=== PATIENT | male | born 1960 | race Caucasian/White ===

== ENCOUNTER 2016-04-28 12:03 | Emergency (ER) | payer BC, OTHER ==
[~2016-04-28] VITALS: Ht 170.2 cm; Wt 111.1 kg
[~2016-04-28 12:03] MED LIST: ALBUAER2 INH; AMT24 PO; INSUINJ14 SQ; INSUINJ4 SQ; MORP15TA PO; NTRGSL/4 PO; OXGN; PANT40TA PO; TEST5GEL TOP; VGRUNK PO; [UNRECOGNIZED DRUG - CODE] PO
[2016-04-28 12:07] VITALS: TEMP 36.9; Ht 170.2 cm; Wt 111.1 kg
[2016-04-28 12:30] VITALS: O2SAT 96
[2016-04-28 12:54] LABS: HEMATOCRIT 45.3 % (42-52); MEAN CORPUSCULAR HEMOGLOBIN 24.3 pg (25-34); MEAN PLATELET VOLUME 9.4 fL (7.4-10.4); PLATELET COUNT 262 K/uL (130-400); RED BLOOD COUNT 5.96 M/uL (4.7-6.1); WHITE BLOOD COUNT 11.22 K/uL (4.8-10.8)
--- NOTE | 2016-04-28 12:59 | DIAGNOSTIC IMAGING REPORT ---
CHEST ONE VIEW PORTABLE CLINICAL HISTORY: Chest pain. COMPARISON STUDY: Chest radiograph December 08, 2015 per FINDINGS: Lung volumes are at the lower limits of normal. There is no consolidation. There is no evidence of pulmonary edema. Cardiomediastinal silhouette is stable. The appearance of the chest is unchanged. There is evidence for distal left clavicular resection. IMPRESSION: No acute cardiopulmonary findings. Electronically signed by: Corbin Iyer M.D. 04/28/2016 12:57 PM Dictated Date/Time: 04/28/2016 12:55 PM
[2016-04-28 13:01] LABS: BUN/CREATININE RATIO 10.9 (10-20); CREATININE 1.3 mg/dl (0.60-1.40); POTASSIUM 4.4 mmol/L (3.5-5.1)
[2016-04-28 13:04] LABS: INR 0.9 (0.9-1.1); PROTHROMBIN TIME (PATIENT) 9.9 SECONDS (9.0-12.0)
[2016-04-28 13:07] LABS: ALB/GLOB RATIO 1.1 (0.9-2); CKMB/CK RATIO 2.5 (0-3.0)
[2016-04-28 13:14] LABS: BETA-HYDROXYBUTYRATE 0.93 mg/dL (0.2-2.81)
--- NOTE | 2016-04-28 13:36 | EMERGENCY ROOM VISIT NOTE ---
History Report prepared by Slim: Kurt Melvin Under the Supervision of: Dr. Mynor Lowry M.D. First contact with patient: 13:04 Chief Complaint: CHEST PAIN Stated Complaint: CHEST PAIN Nursing Triage Summary: pain started 2-3 days ago, pt. had gone to the doctors for congestion, chest pain comes and goes usually with exerction, pain is located mid sternum, pt. states it feels like a pressure when he has it, has pain under left armpit, that feels like a pinching History of Present Illness The patient is a 55 year old male who presents to the Emergency Room with complaints of intermittent left-sided chest pain for the past 2-3 days. He also has some pain on the right side of his chest. The patient had an EKG at [facility] two days ago, that showed a bundle branch block. He was told to return to the ED if he had continued chest pain. The pain today is the same as the pain he was having three days ago. The patient describes a pressure sensation in his chest. He also has some pain in his arm. The patient is also positive for abdominal pain, which he attributes to constipation. The patient takes morphine for chronic back pain. He is not having any new abdominal or back pain. The patient has had a cough and was diagnosed with bronchitis when he was at [facility]. The patient has a history of hypertension. Source of History: patient Onset: 2-3 days ago Position: chest (left) Quality: pressure Timing: intermittent Associated Symptoms: + cough, No abdominal pain, No back pain Review of Systems All systems have been listed, reviewed, and are negative other than those previously mentioned. Please see Additional Medical History Sheet. Past Medical & Surgical Medical Problems: (1) Diabetes (2) Low testosterone Surgical Problems: (1) History of back surgery Family History FH: HTN (hypertension) FH: diabetes mellitus FH: heart disease Social History Smoking Status: Current Every Day Smoker Alcohol Use: none Marital Status: Housing Status: lives with family Occupation Status: unemployed Current/Historical Medications Scheduled Cetirizine (Zyrtec), 10 MG PO HS Glucostix Blood Test Strips (Onetouch Ultra Blue), PRN Morphine Sulfate (Ms Contin), 100 MG PO BID Morphine Sulfate (Morphine Sulfate ER), 30 MG PO Q12 Oxygen (Oxygen), 2 LITER NA HS Pantoprazole (Protonix), 40 MG PO DAILY Testosterone (Androgel Pump), 1 APPLN TOP DAILY Scheduled PRN Albuterol (Ventolin), 2 PUFFS INH QID PRN for SOB/Wheezing Insulin Aspart Penfill (Novolog Penfill), UNITS SQ AC PRN for HYPERGLYCEMIA Lubiprostone (Amitiza), 24 MCG PO DAILY PRN for Constipation Morphine Sulfate Ir (Morphine Sulfate Ir), 15 MG PO UD PRN for Pain Nitroglycerin (Nitrostat), 0.4 MG PO UD PRN for Chest Pain Sildenafil Citrate (Viagra Unkown Dose), 100 MG PO UD PRN for UNDECIDED Miscellaneous Medications Insulin Glargine (Toujeo Solostar), 155 UNITS Allergies Coded Allergies: Uncoded Nonscreenable Allergen (Verified Allergy, Intermediate, PLASTICS: BLISTERS, 04/28/16) Adhesives (Verified Allergy, Unknown, _, 04/28/16) Clarithromycin (Verified Allergy, Unknown, 04/28/16) PT. GOT HEPATITIS B FROM THIS MED AND REQUIRED HOSPITILIZATION Physical Exam Vital Signs Date Time Temp Pulse Resp B/P Pulse Ox O2 Delivery O2 Flow Rate FiO2 04/28/16 15:02 99 18 153/86 97 Room Air 04/28/16 13:57 20 149/74 96 04/28/16 12:50 106 04/28/16 12:30 96 Room Air 04/28/16 12:17 96 Room Air 04/28/16 12:07 36.9 110 18 156/82 96 Room Air Physical Exam GENERAL: Patient awake, alert, oriented x 3. Anxious appearing. Appears to be in mild to moderate distress. Patient follows commands. Patient does not appear toxic. Patient is adequately hydrated and well-nourished. SKIN: No erythema, pallor, cyanosis or rash HEENT: Normal head, pupils equal, reactive to light and accommodation. Ears normal. Oral cavity and posterior pharynx appear normal. Neck: Without adenopathy, no neck vein distention. CHEST: Tenderness over the sternum and left anterior chest. No breaks in skin or signs of trauma. LUNGS: Clear to auscultation. No wheezes, no rales, no rhonchi. HEART: No murmurs. No gallops. No rubs BACK: Well healed scar over the lumbar spine. ABDOMEN: Obese, soft, nontender. EXTREMITIES: No signs of trauma. No pedal or pretibial edema. No calf or thigh tenderness. NEUROLOGIC: Cranial nerves II-XII within normal limits. No gross motor sensory function deficits. Medical Decision & Procedures ER Provider Diagnostic Interpretation: X ray results are stated below per my interpretation and the radiologist's interpretation. CHEST ONE VIEW PORTABLE CLINICAL HISTORY: Chest pain. COMPARISON STUDY: Chest radiograph December 08, 2015 per FINDINGS: Lung volumes are at the lower limits of normal. There is no consolidation. There is no evidence of pulmonary edema. Cardiomediastinal silhouette is stable. The appearance of the chest is unchanged. There is evidence for distal left clavicular resection. IMPRESSION: No acute cardiopulmonary findings. Electronically signed by: Corbin Iyer M.D. 04/28/2016 12:57 PM Dictated Date/Time: 04/28/2016 12:55 PM Laboratory Results 04/28/16 12:25 04/28/16 12:25 Test 04/28/16 12:25 04/28/16 12:30 04/28/16 12:31 Red Blood Count 5.96 M/uL (4.7-6.1) Mean Corpuscular Volume 76.0 fL (80-100) Mean Corpuscular Hemoglobin 24.3 pg (25-34) Mean Corpuscular Hemoglobin Concent 32.0 g/dl (32-36) RDW Standard Deviation 46.1 fL (36.4-46.3) RDW Coefficient of Variation 16.5 % (11.5-14.5) Mean Platelet Volume 9.4 fL (7.4-10.4) Prothrombin Time 9.9 SECONDS (9.0-12.0) Prothromb Time International Ratio 0.9 (0.9-1.1) Activated Partial Thromboplast Time 24.7 SECONDS (21.0-31.0) Partial Thromboplastin Ratio 1.0 Anion Gap 9.0 mmol/L (3-11) Est Creatinine Clear Calc Drug Dose 78.2 ml/min Estimated GFR () 72.2 Estimated GFR (Non- 62.3 BUN/Creatinine Ratio 10.9 (10-20) Calcium Level 9.0 mg/dl (8.5-10.1) Total Bilirubin 0.2 mg/dl (0.2-1) Aspartate Amino Transf (AST/SGOT) 13 U/L (15-37) Alanine Aminotransferase (ALT/SGPT) 39 U/L (12-78) Alkaline Phosphatase 104 U/L (45-117) Total Creatine Kinase 134 U/L (39-308) Creatine Kinase MB 3.3 ng/ml (0.5-3.6) Creatine Kinase MB Ratio 2.5 (0-3.0) Total Protein 6.8 gm/dl (6.4-8.2) Albumin 3.6 gm/dl (3.4-5.0) Globulin 3.2 gm/dl (2.5-4.0) Albumin/Globulin Ratio 1.1 (0.9-2) Beta-Hydroxybutyric Acid 0.93 mg/dL (0.2-2.81) Influenza Type A Antigen Neg for Influ A (NEG) Influenza Type B Antigen Neg for Influ B (NEG) Bedside Troponin I 0.000 ng/ml (0-0.045) Laboratory results as stated above per my review. ECG Indication: chest pain Rate (beats per minute): 96 Rhythm: normal sinus Findings: LAFB, RBBB Change: Similar to EKG from April 25 at [facility]. ED Course 1311: Past medical records reviewed. The patient was evaluated in room A11b. A complete history and physical examination was performed. 1422: Updated the patient on the test results. 1450: Upon reevaluation, the patient appeared to have improvement of his symptoms. I discussed today's findings with him. He verbalized agreement of the treatment plan. He was discharged home. Medical Decision I considered multiple diagnoses including myocardial infarction, chest wall pain , pericarditis, myocarditis, aortic emergencies, pulmonary embolism, congestive heart failure, GI causes, and other significant cardiopulmonary disorders. Multiple labs, EKG and imaging were obtained. Please see above. The patient has been coughing and now has chest wall pain. He has no elevation of troponin. The patient does have a right bundle-branch block which she had on his last EKG. I do not believe his current pain is cardiac in nature. The patient has chronic pain from his low back. He's had multiple surgeries is scheduled for another one in the future. Patient took his own pain medication while here. Prior to discharge the patient did feel better. Impression Primary Impression: Chest wall pain Additional Impression: Upper respiratory infection Scribe Attestation The scribe's documentation has been prepared under my direction and personally reviewed by me in its entirety. I confirm that the note above accurately reflects all work, treatment, procedures, and medical decision making performed by me. Departure Information Dispostion Home / Self-Care Referrals No Doctor, Assigned (PCP) Forms HOME CARE DOCUMENTATION FORM, IMPORTANT VISIT INFORMATION Patient Instructions ED Strain Chest Wall, My [facility] Additional Instructions Continue all of your current medications as prescribed. Follow-up with your cardiac surgeon next week. Follow-up with your family physician regarding clearance for your upcoming surgery. Problem Qualifiers
[2016-04-28] MEDS ORDERED: FSTTS (13:41)
[2016-04-28] MEDS ORDERED: CETI10TA84 PO (13:41)
[2016-04-28] MEDS ORDERED: MRPSR30 PO (13:41)
[2016-04-28] MEDS ORDERED: INSU1.2I (13:41)
[2016-04-28 15:02] VITALS: BP 153/86; PULSE 99; O2SAT 97
[2016-05-06] MEDS ORDERED: LSN5 PO (09:25)
[2016-05-06] MEDS ORDERED: ATOR-54 PO ×2 (09:25→11:54)
[2016-07-05] MEDS ORDERED: HYDR4TAB78 PO (08:52)
== END 2016-04-28 15:03 | disposition home or self-care (01) ==
LOC: C.EDB 12:05 → C.EDA 15:03
DX: R07.89 Other chest pain (principal); J06.9 Acute upper respiratory infection, unspecified; E11.9 Type 2 diabetes mellitus without complications; I45.10 Unspecified right bundle-branch block; G89.29 Other chronic pain; M54.5 Low back pain; Z98.890 Other specified postprocedural states; F17.200 Nicotine dependence, unspecified, uncomplicated; Z88.1 Allergy status to other antibiotic agents; Z79.4 Long term (current) use of insulin; Z82.49 Family history of ischemic heart disease and other diseases of the circulatory system; Z83.3 Family history of diabetes mellitus

== ENCOUNTER 2016-05-04 07:30 | Observation (INO) | payer BC ==
[~2016-05-04] VITALS: Ht 170.2 cm; Wt 112.7 kg
[~2016-05-04 07:30] MED LIST changes: +CETI10TA84 PO; +FSTTS; +INSU1.2I; -INSUINJ4 SQ; +MRPSR30 PO
[2016-05-04] MEDS ORDERED: ASPIRIN 81 MG CHEW PO STA (07:44)
[2016-05-04] MEDS ORDERED: NITROGLYCERIN OINT 2% 1GM PACKET EXT STA (07:44)
--- NOTE | 2016-05-04 07:55 | DIAGNOSTIC IMAGING REPORT ---
CHEST ONE VIEW PORTABLE CLINICAL HISTORY: Chest pain. COMPARISON STUDY: Chest radiograph April 28, 2016. FINDINGS: Lung volumes are normal. There is no pneumothorax or pleural effusion. There is no evidence of pulmonary edema. No consolidation is identified. Cardiomediastinal silhouette is unremarkable. IMPRESSION: No acute cardiopulmonary findings. Electronically signed by: Corbin Iyer M.D. 05/04/2016 7:53 AM Dictated Date/Time: 05/04/2016 7:53 AM
[2016-05-04 07:59] LABS: BASO % 0.3 %; BASO ABS # 0.03 K/uL (0-0.2); COMPLETE YES; EOS % 1.3 %; HEMATOCRIT 44.4 % (42-52); IG% 0.2 %; LYMPH % 23.2 %; LYMPH ABS # 2.78 K/uL (1.2-3.4); MEAN CELL VOLUME 77.4 fL (80-100); MEAN CORPUSCULAR HEMOGLOBIN 25.1 pg (25-34); MEAN CORPUSCULAR HGB CONC 32.4 g/dl (32-36); MEAN PLATELET VOLUME 9.4 fL (7.4-10.4); PLATELET COUNT 246 K/uL (130-400); RED BLOOD COUNT 5.74 M/uL (4.7-6.1); WHITE BLOOD COUNT 11.96 K/uL (4.8-10.8)
--- NOTE | 2016-05-04 08:01 | EMERGENCY ROOM VISIT NOTE ---
History Report prepared by Slim: Lashawn Mendoza Under the Supervision of: Dr. Paddy Tinoco M.D. First contact with patient: 07:36 Chief Complaint: CARDIAC ASSESSMENT Stated Complaint: CHEST PAIN Nursing Triage Summary: triage note: pt reports intermittent chest pain x 2 weeks and shortness of breath. pt has cardiac cath scheduled for next week. pt reports taking two nitro today with no relief. History of Present Illness The patient is a 55 year old male who presents to the Emergency Room with complaints of ongoing chest pain for the past 2 weeks, which was exacerbated at 0300 this morning. Currently, he is resting more comfortably as he had relief after taking 2 nitroglycerin tablets 30 minutes apart prior to arrival. He has not taken any aspirin today. At the time of onset this morning, the patient was sleeping when he was suddenly awoken with the pain to his chest. Along with the chest pain, he also experienced radiation of his pain down his left arm, shortness of breath, nausea, and diaphoresis. The patient states that he has been experiencing similar episodes of chest pain, both with rest and exertion, over the past 2 weeks. He did visit the ED on April 28, but was discharged back to home after having a negative work up. He does have a cardiac catheter scheduled for next week, however, as his symptoms were exacerbated this morning he came to the ED for further evaluation. The patient states that he has a history of RBBB, LAFB, hypertension and diabetes. He also has an albuterol inhaler but states that he doesn't use it very often. Patient currently smokes 3 /4 a pack of cigarettes a day. Source of History: patient Onset: 0300 Position: chest Timing: other (exacerbation) Modifying Factors (Relieving): other (nitroglycerin) Associated Symptoms: + SOB, + diaphoresis, + nausea Note: Patient had radiation of pain down his left arm. Review of Systems See HPI for pertinent positives & negatives. A total of 10 systems reviewed and were otherwise negative. Past Medical & Surgical Medical Problems: (1) Asthma (2) BPH (benign prostatic hyperplasia) (3) Chest pain (4) Chronic back pain (5) HLD (hyperlipidemia) (6) HTN (hypertension) (7) IDDM (insulin dependent diabetes mellitus) (8) Low testosterone (9) AR (obstructive sleep apnea) (10) Polycythemia, secondary (11) Tobacco abuse Surgical Problems: (1) History of appendectomy (2) History of back surgery (3) History of back surgery Family History FH: HTN (hypertension) FH: diabetes mellitus FH: heart disease Social History Smoking Status: Current Every Day Smoker Alcohol Use: none Marital Status: Housing Status: lives with family Occupation Status: unemployed Current/Historical Medications Scheduled Aspirin (Aspirin Ec), 81 MG PO DAILY Metoprolol Succ (Toprol Xl) (Toprol-Xl), 12.5 MG PO DAILY Morphine Sulfate (Ms Contin), 100 MG PO BID Morphine Sulfate (Morphine Sulfate ER), 30 MG PO Q12 Nicotine (Nicotine), 21 MG TD DAILY Oxygen (Oxygen), 2 LITER NA HS Sildenafil Citrate (Viagra), 100 MG PO PRN Testosterone (Androgel Pump), 1 APPLN TOP DAILY Scheduled PRN Albuterol (Ventolin Hfa), 2 PUFFS INH QID PRN for Shortness of Breath Insulin Aspart (Novolog), UNITS SQ AC PRN for HYPERGLYCEMIA Lubiprostone (Amitiza), 24 MCG PO DAILY PRN for Constipation Morphine Sulfate Ir (Morphine Sulfate Ir), 15 MG PO UD PRN for Pain Nitroglycerin (Nitrostat), 0.4 MG PO UD PRN for Chest Pain Pantoprazole (Protonix), 40 MG PO DAILY PRN for Indigestion Miscellaneous Medications Insulin Glargine (Toujeo Solostar), 160 UNITS [C-Pap], 10 Allergies Coded Allergies: Uncoded Nonscreenable Allergen (Verified Allergy, Intermediate, PLASTICS: BLISTERS, 05/04/16) Adhesives (Verified Allergy, Unknown, _, 05/04/16) Clarithromycin (Verified Allergy, Unknown, 05/04/16) PT. GOT HEPATITIS B FROM THIS MED AND REQUIRED HOSPITILIZATION Physical Exam Vital Signs Date Time Temp Pulse Resp B/P Pulse Ox O2 Delivery O2 Flow Rate FiO2 05/04/16 08:30 96 151/77 97 2.0 05/04/16 08:15 95 164/83 97 Nasal Cannula 2.0 05/04/16 07:50 103 20 183/98 99 Nasal Cannula 2.0 05/04/16 07:39 Nasal Cannula 2.0 05/04/16 07:39 102 05/04/16 07:33 36.9 103 18 161/77 97 Room Air Physical Exam GENERAL: Patient is a healthy-appearing well-nourished 55 year old male. HEAD: Normocephalic atraumatic EYES: Ocular movements intact pupils equal and react to light OROPHARYNX mucous membranes are moist no exudates present no erythema or edema present NECK: Supple no nuchal rigidity CHEST: Good equal expansion LUNGS: Clear and equal to auscultation CARDIAC: Normal S1 and S2 ABDOMEN: Soft nontender no guarding BACK: No CVA tenderness EXTREMITIES: No pain upon palpation normal muscle strength in all groups no clubbing cyanosis or edema NEURO: Patient is following commands is answering questions appropriately. Alert and oriented x3 Cranial Nerves 2-12 grossly intact Medical Decision & Procedures ER Provider Diagnostic Interpretation: X-ray results as stated below per interpretation by me and the radiologist: CHEST ONE VIEW PORTABLE CLINICAL HISTORY: Chest pain. COMPARISON STUDY: Chest radiograph April 28, 2016. FINDINGS: Lung volumes are normal. There is no pneumothorax or pleural effusion. There is no evidence of pulmonary edema. No consolidation is identified. Cardiomediastinal silhouette is unremarkable. IMPRESSION: No acute cardiopulmonary findings. Electronically signed by: Corbin Iyer M.D. 05/04/2016 7:53 AM Dictated Date/Time: 05/04/2016 7:53 AM Laboratory Results 05/04/16 07:40 Red Blood Count 5.74, Mean Corpuscular Volume 77.4, Mean Corpuscular Hemoglobin 25.1, Mean Corpuscular Hemoglobin Concent 32.4, Mean Platelet Volume 9.4, Neutrophils (%) (Auto) 64.0, Lymphocytes (%) (Auto) 23.2, Monocytes (%) (Auto) 11.0, Eosinophils (%) (Auto) 1.3, Basophils (%) (Auto) 0.3, Neutrophils # (Auto ) 7.66, Lymphocytes # (Auto) 2.78, Monocytes # (Auto) 1.31, Eosinophils # (Auto ) 0.16, Basophils # (Auto) 0.03 05/04/16 07:40 Test 05/04/16 07:40 White Blood Count 11.96 K/uL (4.8-10.8) Red Blood Count 5.74 M/uL (4.7-6.1) Hemoglobin 14.4 g/dL (14.0-18.0) Hematocrit 44.4 % (42-52) Mean Corpuscular Volume 77.4 fL (80-100) Mean Corpuscular Hemoglobin 25.1 pg (25-34) Mean Corpuscular Hemoglobin Concent 32.4 g/dl (32-36) Platelet Count 246 K/uL (130-400) Mean Platelet Volume 9.4 fL (7.4-10.4) Neutrophils (%) (Auto) 64.0 % Lymphocytes (%) (Auto) 23.2 % Monocytes (%) (Auto) 11.0 % Eosinophils (%) (Auto) 1.3 % Basophils (%) (Auto) 0.3 % Neutrophils # (Auto) 7.66 K/uL (1.4-6.5) Lymphocytes # (Auto) 2.78 K/uL (1.2-3.4) Monocytes # (Auto) 1.31 K/uL (0.11-0.59) Eosinophils # (Auto) 0.16 K/uL (0-0.5) Basophils # (Auto) 0.03 K/uL (0-0.2) RDW Standard Deviation 46.9 fL (36.4-46.3) RDW Coefficient of Variation 16.6 % (11.5-14.5) Immature Granulocyte % (Auto) 0.2 % Immature Granulocyte # (Auto) 0.02 K/uL (0.00-0.02) Anion Gap 11.0 mmol/L (3-11) Est Creatinine Clear Calc Drug Dose 85.3 ml/min Estimated GFR () 79.5 Estimated GFR (Non- 68.6 BUN/Creatinine Ratio 8.8 (10-20) Calcium Level 8.9 mg/dl (8.5-10.1) Total Bilirubin 0.2 mg/dl (0.2-1) Direct Bilirubin < 0.1 mg/dl (0-0.2) Aspartate Amino Transf (AST/SGOT) 18 U/L (15-37) Alanine Aminotransferase (ALT/SGPT) 45 U/L (12-78) Alkaline Phosphatase 108 U/L (45-117) Total Protein 7.0 gm/dl (6.4-8.2) Albumin 3.7 gm/dl (3.4-5.0) Lipase 204 U/L (73-393) Labs reviewed by ED physician. Medications Administered Medications (Trade) Dose Ordered Sig/Shivani Route Start Time Stop Time Status Last Admin Dose Admin Aspirin (Aspirin Chew) 324 mg NOW STAT PO 05/04/16 07:44 05/04/16 07:46 DC 05/04/16 07:54 324 MG Nitroglycerin (Nitroglycerin 2% Oint) 1 inch NOW STAT EXT 05/04/16 07:44 05/04/16 07:46 DC 05/04/16 07:56 1 INCH ECG Indication: chest pain Rate (beats per minute): 96 Rhythm: normal sinus Findings: RBBB, no acute ischemic change, no ectopy Change: no significant change (when compared to EKG from 04/28/16.) ED Course 0736: Past medical records reviewed. The patient was evaluated in room A10. A complete history and physical examination was performed. 0744: Nitroglycerin 1 inch EXT and Aspirin 324 mg PO were ordered. 0830: Upon reevaluation, the patient appeared to be resting more comfortably. I updated him on the results of his radiology reports and lab tests. The hospitalist will be contacted. 0840: After discussion with Brandee Chaudhry PA-C, the patient will continue to be evaluated by the [facility] hospitalist for further management. He verbalized his understanding and agreement with this treatment plan. Medical Decision Differential diagnosis: Etiologies such as cardiac ischemia, aortic dissection, pulmonary embolism, pneumonia, pneumothorax, musculoskeletal, infections, pericarditis, myocarditis , esophageal rupture, gastrointestinal, as well as others were entertained. This is a 55-year-old male who presents emergency Department with chest pain that is relieved by nitroglycerin. The patient was just in the emergency department for chest pain and is scheduled for cardiac cath next week. Based on the fact that this appears to be unstable angina I recommended to the patient that he be admitted to the hospital. Upon arrival here tho the emergency department the patient is concerned about his back pain and asked if he could take his home medications. I told him that for this patient I would prefer that he take his home medications while he is in the emergency department as we would be using nitropaste to relieve his chest pain. He was given nitro paste while he was in the emergency department for his chest pain. When I asked with the patient's past medical history was he replied about his back surgeries. I then pointed out to him that I have taken care of him in the past and that he has had a TIA, hypertension, smoking history, migraines as well as diabetes. Approximate 2 hours later I was called back to the room because the patient at this point was throwing a fit and the patient's wish to speak with me over what I had said to the patient. I discussed my interview with the patient as above and pointed out to her that he had a return visit within the past 3 days and at based on the fact that he was scheduled for a cardiac cath that he should be admitted for this unstable angina. I also pointed out to her that I told the patient he could take his home medications which he did. The patient is irate that he has not received any pain medications from the admitting team and he has blamed this on me. I also pointed out to the that I took care of both him and her when he was a patient here for his migraines. The would like it known in this patient's chart that he takes a large amounts of narcotics. I then pointed out to the as the emergency room physician my main concern is this patient's unstable angina and I also again reaffirmed the fact that the patient took his own home pain medications when he arrived in the emergency department. I will note that this patient has now caused quite a disturbance in the emergency department that has lasted approximately 20-30 minutes during a period of high volume and high acuity when there is already a shortage of emergency room physicians this week. He is risking a catastrophe as there are critically ill patients here. I did discuss the case with the hospitalist service who agreed to admit the patient. Consults Time Called: 0835 Consulting Physician: Brandee Bishop Returned Call: 0840 Discussed the patient's case. He will continue to be evaluated by the [facility] Hospitalist for further management. Impression Primary Impression: Precordial chest pain Critical Care I have personally spent greater than 30 minutes of critical care time in the direct management of this patient. This includes bedside care, interpretation of diagnostic studies, and testing, discussion with consultants, patient, and family members, and other required patient management activities. This 30 minutes is in excess of all separately billable procedures. Scribe Attestation The scribe's documentation has been prepared under my direction and personally reviewed by me in its entirety. I confirm that the note above accurately reflects all work, treatment, procedures, and medical decision making performed by me. Departure Information Dispostion Being Evaluated By Hospitalist ([place]) Oswaldo Martinez M.D. (PCP)
[2016-05-04] MEDS ORDERED: METO25TA3 PO (08:11)
[2016-05-04] MEDS ORDERED: ASPI81TA28 PO (08:12)
[2016-05-04] MEDS ORDERED: C-PAP (08:14)
[2016-05-04 08:16] LABS: ALT/SGPT 45 U/L (12-78); BLOOD UREA NITROGEN 11 mg/dl (7-18); BUN/CREATININE RATIO 8.8 (10-20); CALCIUM 8.9 mg/dl (8.5-10.1); CARBON DIOXIDE 25 mmol/L (21-32); CHLORIDE 101 mmol/L (98-107); GLUCOSE 278 mg/dl (70-99); POTASSIUM 4.1 mmol/L (3.5-5.1); SODIUM 137 mmol/L (136-145)
[2016-05-04 08:21] LABS: ALKALINE PHOSPHATASE 108 U/L (45-117); AST/SGOT 18 U/L (15-37); CKMB/CK RATIO 1.7 (0-3.0)
[2016-05-04] MEDS ORDERED: PRVHFAIN INH (08:23)
[2016-05-04] MEDS ORDERED: NVLG SQ (08:23)
[2016-05-04] MEDS ORDERED: SILD100T PO (08:23)
[2016-05-04 08:55] VITALS: O2SAT 97; BMI 38.8
[2016-05-04] MEDS ORDERED: NCDT14 TD (09:26)
[2016-05-04] MEDS ORDERED: ONDANSETRON INJ 2 MG/ML 2 ML VIAL IV PRN (09:30)
[2016-05-04] MEDS ORDERED: GLUCOSE 10 TABS/TUBE PO PRN (09:30)
[2016-05-04] MEDS ORDERED: PANTOprazole SOD 40 MG TAB PO PRN (09:30)
[2016-05-04] MEDS ORDERED: ACETAMINOPHEN 325 MG TAB PO PRN (09:30)
[2016-05-04] MEDS ORDERED: GLUCOSE 40% GEL 15 GM TUBE PO PRN (09:30)
[2016-05-04] MEDS ORDERED: GLUCAGON FOR INJ 1 MG VIAL SQ PRN (09:30)
[2016-05-04] MEDS ORDERED: IV FLUIDS COMPLETED PRN (09:30)
[2016-05-04] MEDS ORDERED: NITROGLYCERIN 0.4 MG SL PER TAB CHARGE SL PRN (09:30)
[2016-05-04] MEDS ORDERED: ALBUTEROL HFA 8 GM INHALER INH PRN (09:30)
[2016-05-04] MEDS ORDERED: DEXTROSE 50% 50 ML SYR IV PRN (09:30)
[2016-05-04] MEDS ORDERED: PHARMACY GLYCEMIC MGMT CONSULT PRN (09:31)
--- NOTE | 2016-05-04 09:55 | History and Physical ---
History & Physical Date & Time of Service: May 04, 2016 at 09:33 Chief Complaint: Chest Pain Primary Care Physician: Oswaldo Sampson M.D. History of Present Illness Source: patient, clinic records, hospital records Patient seen and examined. 55 year old male with PMHx of IDDM, AR, BPH, secondary polycythemia, HLD, Asthma, tobacco abuse and HTN presents to the ED complaining of chest pain prior to arrival. Patient has been having chest pain off and on for several weeks that has been worsening in intensity. He came to the ED last week and was discharged home after negative cardiac workup. He followed up with Cardiology and is schedule for a left heart cath next week. He states this morning around 3:00 he woke up with severe chest pressure that felt like he had a 50 pound weight on his chest. He rates the pain as a 9/10. He reports that it radiated to the neck and down the left arm. He reports associated SOB, chills, nausea and dizziness. He states he took nitro which alleviated the pain but the pain returned within a half hour. He took a second nitro which again alleviated the pain and then came to the ED. He states that he was recently started on Metoprolol Succinate which he states helps but seems to only last half a day. In the ED VS are stable, CXR is negative, EKG shows no new changes, Álvaro are negative x 1. Patient received nitro paste and Aspirin and is resting comfortably. He will be observed for further workup and treatment. Past Medical/Surgical History Medical Problems: (1) Asthma Status: Chronic (2) BPH (benign prostatic hyperplasia) Status: Chronic (3) Chronic back pain Status: Chronic (4) HLD (hyperlipidemia) Status: Chronic (5) HTN (hypertension) Status: Chronic (6) IDDM (insulin dependent diabetes mellitus) Status: Chronic (7) Low testosterone Status: Chronic (8) AR (obstructive sleep apnea) Status: Chronic (9) Polycythemia, secondary Status: Chronic (10) Tobacco abuse Status: Chronic Surgical Problems: (1) History of appendectomy Status: Chronic (2) History of back surgery Status: Chronic (3) History of back surgery Status: Chronic Family History FH: HTN (hypertension) FH: diabetes mellitus FH: heart disease Social History Smoking Status: Current Every Day Smoker Alcohol Use: none Marital Status: Housing status: lives with family Occupational Status: unemployed Immunizations History of Influenza Vaccine: Yes Influenza Vaccine Date: Feb 15, 2006 History of Tetanus Vaccine?: Unknown History of Pneumococcal: Unknown Pneumococcal Date: Feb 15, 2006 History of Hepatitis B Vaccine: Unknown Multi-Drug Resistant Organisms History of MDRO: No Allergies Coded Allergies: Uncoded Nonscreenable Allergen (Verified Allergy, Intermediate, PLASTICS: BLISTERS, 05/04/16) Adhesives (Verified Allergy, Unknown, _, 05/04/16) Clarithromycin (Verified Allergy, Unknown, 05/04/16) PT. GOT HEPATITIS B FROM THIS MED AND REQUIRED HOSPITILIZATION Home Medications Scheduled Aspirin (Aspirin Ec), 81 MG PO DAILY Metoprolol Succ (Toprol Xl) (Toprol-Xl), 12.5 MG PO DAILY Morphine Sulfate (Ms Contin), 100 MG PO BID Morphine Sulfate (Morphine Sulfate ER), 30 MG PO Q12 Nicotine (Nicotine), 21 MG TD DAILY Oxygen (Oxygen), 2 LITER NA HS Sildenafil Citrate (Viagra), 100 MG PO PRN Testosterone (Androgel Pump), 1 APPLN TOP DAILY Scheduled PRN Albuterol (Ventolin Hfa), 2 PUFFS INH QID PRN for Shortness of Breath Insulin Aspart (Novolog), UNITS SQ AC PRN for HYPERGLYCEMIA Lubiprostone (Amitiza), 24 MCG PO DAILY PRN for Constipation Morphine Sulfate Ir (Morphine Sulfate Ir), 15 MG PO UD PRN for Pain Nitroglycerin (Nitrostat), 0.4 MG PO UD PRN for Chest Pain Pantoprazole (Protonix), 40 MG PO DAILY PRN for Indigestion Miscellaneous Medications Insulin Glargine (Toujeo Solostar), 160 UNITS [C-Pap], 10 Review of Systems See above for pertinent positives & negatives. A total of 10 systems reviewed and were otherwise negative. Physical Exam Vital Signs Date Time Temp Pulse Resp B/P Pulse Ox O2 Delivery O2 Flow Rate FiO2 05/04/16 09:30 97 131/70 95 05/04/16 09:27 97 05/04/16 09:00 97 152/77 97 Nasal Cannula 2.0 05/04/16 08:55 97 Nasal Cannula 2.0 05/04/16 08:30 96 151/77 97 2.0 05/04/16 08:15 95 164/83 97 Nasal Cannula 2.0 05/04/16 07:50 103 20 183/98 99 Nasal Cannula 2.0 05/04/16 07:39 Nasal Cannula 2.0 05/04/16 07:39 102 05/04/16 07:33 36.9 103 18 161/77 97 Room Air General Appearance: + pertinent finding (Pleasant WD/WN 55 year old male lying in bed in NAD ) Head: normocephalic, atraumatic Eyes: PERRL, EOMI, sclerae normal ENT: hearing grossly normal, pharynx normal Neck: supple, no JVD, trachea midline Respiratory/Chest: chest non-tender, lungs clear, normal breath sounds, no respiratory distress, no accessory muscle use Cardiovascular: regular rate, rhythm, no edema, no gallop, no JVD, no murmur, normal peripheral pulses Abdomen/GI: normal bowel sounds, non tender, soft (obese) Back: normal inspection, no muscle spasm Extremities/Musculoskelatal: no calf tenderness, normal capillary refill, no pedal edema Neurologic/Psych: alert, oriented x 3, + pertinent finding (no motor or sensory deficits noted on gross exam ) Skin: normal color, warm/dry, no rash Lymphatic: no adenopathy Diagnostics Laboratory Results Results Past 24 Hours Test 05/04/16 07:40 Range/Units White Blood Count 11.96 4.8-10.8 K/uL Red Blood Count 5.74 4.7-6.1 M/uL Hemoglobin 14.4 14.0-18.0 g/dL Hematocrit 44.4 42-52 % Mean Corpuscular Volume 77.4 80-100 fL Mean Corpuscular Hemoglobin 25.1 25-34 pg Mean Corpuscular Hemoglobin Concent 32.4 32-36 g/dl Platelet Count 246 130-400 K/uL Mean Platelet Volume 9.4 7.4-10.4 fL Neutrophils (%) (Auto) 64.0 % Lymphocytes (%) (Auto) 23.2 % Monocytes (%) (Auto) 11.0 % Eosinophils (%) (Auto) 1.3 % Basophils (%) (Auto) 0.3 % Neutrophils # (Auto) 7.66 1.4-6.5 K/uL Lymphocytes # (Auto) 2.78 1.2-3.4 K/uL Monocytes # (Auto) 1.31 0.11-0.59 K/uL Eosinophils # (Auto) 0.16 0-0.5 K/uL Basophils # (Auto) 0.03 0-0.2 K/uL RDW Standard Deviation 46.9 36.4-46.3 fL RDW Coefficient of Variation 16.6 11.5-14.5 % Immature Granulocyte % (Auto) 0.2 % Immature Granulocyte # (Auto) 0.02 0.00-0.02 K/uL Sodium Level 137 136-145 mmol/L Potassium Level 4.1 3.5-5.1 mmol/L Chloride Level 101 98-107 mmol/L Carbon Dioxide Level 25 21-32 mmol/L Anion Gap 11.0 3-11 mmol/L Blood Urea Nitrogen 11 7-18 mg/dl Creatinine 1.20 0.60-1.40 mg/dl Est Creatinine Clear Calc Drug Dose 85.3 ml/min Estimated GFR () 79.5 Estimated GFR (Non- 68.6 BUN/Creatinine Ratio 8.8 10-20 Random Glucose 278 70-99 mg/dl Calcium Level 8.9 8.5-10.1 mg/dl Total Bilirubin 0.2 0.2-1 mg/dl Direct Bilirubin < 0.1 0-0.2 mg/dl Aspartate Amino Transf (AST/SGOT) 18 15-37 U/L Alanine Aminotransferase (ALT/SGPT) 45 12-78 U/L Alkaline Phosphatase 108 45-117 U/L Total Creatine Kinase 134 39-308 U/L Creatine Kinase MB 2.3 0.5-3.6 ng/ml Creatine Kinase MB Ratio 1.7 0-3.0 Troponin I < 0.015 0-0.045 ng/ml Total Protein 7.0 6.4-8.2 gm/dl Albumin 3.7 3.4-5.0 gm/dl Lipase 204 73-393 U/L Diagnostic Radiology CXR Per radiologist read: IMPRESSION: No acute cardiopulmonary findings. EKG 96 BPM, NSR, RBBB, Left anterior fascicular block, QTc 442, no new changes when compared to previous. Impression Assessment and Plan 55 year old male presents to the ED with worsening chest pain. He has been having chest pain for several weeks and is scheduled for a heart cath next week CHEST PAIN R/O ACS -Observation in tele -First set of CE negative in ED -Risk factors: Tobacco abuse, IDDM, HTN, HLD, obesity -Serial Álvaro and EKGs -Fasting lipid panel in AM -continue Aspirin and BB daily -nitropaste 1 inch q6h -Cardiology consult for further management input appreciated -defer to cardiology for repeat echo -will keep npo until seen by cardiology -TSH, Mg pending -CBC, PRP, Mg daily -VSS stable, monitor in tele -Had repeat chest pain in ED, EKG repeated, medicated with 2mg IV morphine x 1 dose, [place] prescription drug [place] reviewed. IDDM -check A1c -is on a very large amount of insulin as outpatient -SSI coverage -Lantus 50 U BID -pharmacy consulted for glycemic control HTN -slightly high -continue BB -add nitro paste -monitor in tele HLD -per chart -check lipid panel AR -continue CPAP ASTHMA -stable -continue nebs, inhalers TOBACCO ABUSE -Cessation counseling given -Nicotine patch ordered GERD -continue PPI CHRONIC BACK PAIN -patient is very particular about pain regimen -continue outpatient pain regimen SECONDARY POLYCYTHEMIA -has monthly phlebotomy -H&H stable -monitor DVT PROPHYLAXIS: Sq Lovenox CODE STATUS: FULL CODE DISPO:observation pending further workup Patient seen in collaboration with Dr. Blackmon ADDENDUM: This is a 55 year old male with PMH of insulin dependent DM2, current tobacco use, chronic narcotic use presents with chest pain. He is to have back surgery next month; and has to be cleared by cardiology prior to surgery - was scheduled for a cardiac cath next week - but today developed chest pressure substernally and then radiated to the left arm. He presented to the ER and EKG showed similar changes as last time; RBBB, no ST-T wave changes - he was given full dose aspirin, SL nitro, nitro patch - felt slightly better, but persistently asked for Dilaudid and pain medications. GEN: +obese, +anxious CVS: +S1, S2, RRR LUNGS: CTA B/L, no wheezing ABD: soft, NT/ND EXT: no edema Chest Pain - plan is for cardiac cath in the AM; continue pain medications and Dilaudid PRN as well as Ativan PRN Chronic Narcotic Use - will need to taper back to home medications in AM - follows with pain management IDDM - monitor BSGs closely - not compliant with diet as outpatient; may need less insulin inpatient; also NPO after midnight; glycemic control consult Advanced Directives Existing Advance Directive: No Existing Living Will: No Existing Power of [employer] Bi Consultant: No VTE Prophylaxis VTE Risk Assessment Done? Y/N: Yes Risk Level: Moderate
[2016-05-04] MEDS ORDERED: MoRPHine SULFATE 2 MG/ML CARP IV ONE (10:45)
[2016-05-04] MEDS: INSULIN ASPART 100 UNITS/ML 3 ML PEN SC SCH ×4 (11:00→21:34)
[2016-05-04 11:36] VITALS: BP 143/78; PULSE 78; TEMP 37.1; O2SAT 96
[2016-05-04] MEDS ORDERED: HYDROmorphone INJ 0.5 MG/0.5 ML SYR IV STA (12:25)
[2016-05-04] MEDS ORDERED: HYDROmorphone INJ 0.5 MG/0.5 ML SYR IV PRN (12:30)
[2016-05-04] MEDS ORDERED: ENOXAPARIN 40 MG/0.4 ML SYR SC SCH (13:00)
[2016-05-04 13:10] LABS: INR 0.9 (0.9-1.1)
[2016-05-04] MEDS ORDERED: LORAZEPAM 2 MG/ML 1 ML VIAL IV STA (13:41)
[2016-05-04] MEDS: MORPHINE SULFATE 100 MG PO SCH (13:59)
[2016-05-04] MEDS ORDERED: LORAZEPAM INJ 1 MG in SYRINGE 0.5 ML IV PRN (14:00)
[2016-05-04] MEDS ORDERED: NITROGLYCERIN OINT 2% 1GM PACKET EXT SCH (14:00)
--- NOTE | 2016-05-04 14:22 | Cardiology Consultation ---
Cardiology Consultation Date of Consultation: May 04, 2016 History of Present Illness Nabil Cole is a 55-year-old male seen in cardiology consultation per the request Jena Chaudhry PA-C and Dr Blackmon for the evaluation of chest discomfort. The patient has a history of chronic back pain with narcotic dependence and multiple past surgical procedures. He anticipates an additional surgical procedure May 2016. The patient states that for the last 1-2 months she's had generalized illness, shortness of breath, easy fatigability, and intermittent sharp midline chest discomfort. He also notes both lumbar back discomfort as well as discomfort in the area of the thoracic spine. He been hospitalized for chest discomfort in November 2015 with negative cardiac enzymes at that time it was felt that the discomfort was reproducible and was due to chronic muscular skeletal discomfort , neuropathic pain and he was discharged without further cardiac testing. Apparently discomfort eased up to some degree, and is now returned. He had a recent emergency room presentation 04/25/16. EKG performed at that time revealed new bifascicular block with right bundle branch block left anterior hemiblock compared to the prior tracing performed in November 2015. The patient had recently been seen by Dr. Johnson of our practice in 05/02/16 in outpatient cardiology consultation in follow-up of his emergency department visit for chest discomfort. He was tentatively scheduled to have a cardiac catheterization performed about a week, but in the meantime he presented with worsening chest discomfort. During my evaluation the patient, he was sitting on the edge of the bed. He was uncomfortable. He complained of headache, and had 2 inches of nitroglycerin paste on. He believes the nitroglycerin paste and palliated his discomfort to some degree. EKG performed on arrival to the emergency room today revealed sinus rhythm with right bundle branch block and left anterior fascicular block unchanged compared to the 04/25/16 tracing. Troponin has been negative times one this far. History PAST MEDICAL HISTORY: 1. Type 2 diabetes mellitus requiring insulin 2. Dyslipidemia with low HDL 3. Chronic tobacco use 4. Obstructive sleep apnea with nocturnal CPAP and oxygen supplementation 5. Secondary polycythemia requiring phlebotomy 6. History of complex migraine headache with transient left hemiplegia the past 7. Chronic severe back pain with narcotic dependence 8. Hypogonadism related to his chronic narcotic pain treatment. PAST SURGICAL HISTORY: 1. Lumbar spinal fusion 5 surgeries total ranging from [id number] 2. Appendectomy 3. Uvula surgery for treatment of sleep apnea FAMILY HISTORY: The heart disease in paternal grandmother SOCIAL HISTORY: [place] 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 He denies significant alcohol use. He does ingest a significant amount of caffeine through ice tea and coffee. Review Of Systems 10 point review of systems performed, with pertinent positives as per history of present illness, chronic thoracic and lumbar spine pain, chest pain, otherwise negative with exception of recent headache perhaps due to nitroglycerin. Allergies Coded Allergies: Uncoded Nonscreenable Allergen (Verified Allergy, Intermediate, PLASTICS: BLISTERS, 05/04/16) Adhesives (Verified Allergy, Unknown, _, 05/04/16) Clarithromycin (Verified Allergy, Unknown, 05/04/16) PT. GOT HEPATITIS B FROM THIS MED AND REQUIRED HOSPITILIZATION Medications Reported Home Medications Medications Dose Route/Sig Max Daily Dose Days Date Category Dose Instructions Nicotine 1 Patch Tdsy 21 Mg TD DAILY 05/04/16 Reported Viagra (Sildenafil Citrate) 100 Mg Tab 100 Mg PO PRN 05/04/16 Reported Novolog (Insulin Aspart) 100 Units/Ml Inj Units SQ AC PRN 05/04/16 Reported SLIDING SCALE: UP TO 100 UNITS Ventolin Hfa (Albuterol) 60 Puffs/5400 Mcg Aers 2 Puffs INH QID PRN 05/04/16 Reported [C-Pap] 10 05/04/16 Reported PRESSURE 10 ALONG WITH OXYGEN AT NIGHT Aspirin Ec (Aspirin) 81 Mg Tab 81 Mg PO DAILY 05/04/16 Reported Toprol-Xl (Metoprolol Succinate) 25 Mg Tabcr 12.5 Mg PO DAILY 05/04/16 Reported Toujeo Solostar (Insulin Glargine) 300 Unit/Ml Inj 160 Units 04/28/16 Reported depending on day before numbers Morphine Sulfate ER (Morphine Sulfate) 30 Mg Tabcr 30 Mg PO Q12 04/28/16 Reported 04/28/16 patient has taken 215mg morphine today Nitrostat (Nitroglycerin) 0.4 Mg Tab 0.4 Mg PO UD PRN 12/08/15 Reported Oxygen Gas 2 Liter NA HS 12/03/14 Reported VIA CPAP Protonix (Pantoprazole Sodium) 40 Mg Tab 40 Mg PO DAILY PRN 11/27/14 Reported Amitiza (Lubiprostone) 24 Mcg Cap 24 Mcg PO DAILY PRN 11/27/14 Reported Androgel Pump (Testosterone) 1.62 % Gel 1 Appln TOP DAILY 11/27/14 Reported 1 pump daily on skin- sometimes Q0D for blood disorder Ms Contin (Morphine Sulfate) 100 Mg Tabcr 100 Mg PO BID 06/04/10 Reported AT 9AM AND 3PM Morphine Sulfate Ir (Morphine Sulfate) 15 Mg Tab 15 Mg PO UD PRN 06/04/10 Reported NEEDED FOR BREAKTHROUGH PAIN Physical Exam Vital Signs (Last 8hrs): Last 8 Hrs Date Time Temp Pulse Resp B/P Pulse Ox O2 Delivery O2 Flow Rate FiO2 05/04/16 11:36 37.1 78 20 143/78 96 Room Air 05/04/16 10:53 79 18 176/76 98 05/04/16 10:09 90 138/75 96 2.0 05/04/16 09:30 97 131/70 95 05/04/16 09:27 97 05/04/16 09:00 97 152/77 97 Nasal Cannula 2.0 05/04/16 08:55 97 Nasal Cannula 2.0 05/04/16 08:30 96 151/77 97 2.0 05/04/16 08:15 95 164/83 97 Nasal Cannula 2.0 05/04/16 07:50 103 20 183/98 99 Nasal Cannula 2.0 05/04/16 07:39 Nasal Cannula 2.0 05/04/16 07:39 102 05/04/16 07:33 36.9 103 18 161/77 97 Room Air General Appearance: Alert and Oriented x3. NAD. Head: Normocephalic Atraumatic. Eyes: PERRLA, EOMI, conjunctiva and sclera clear Neck: Supple. No carotid bruits noted. No JVD. No HJD. Respiratory: Breath sounds clear to auscultation bilaterally. No w/r/r. Cardiovascular: Reg rate and rhythm. S1 and S2 noted. No murmurs, rubs, gallops. PMI non displace. Abdomen: Normal bowel sounds, soft nontender. no abdominal bruits. Extremities: No edema, no clubbing or cyanosis. distal pulses 2/4 bilaterally. Neuro: No focal deficits. Psychiatric: Normal affect. Data Last Resulted 05/04/16 07:40 Red Blood Count 5.74, Mean Corpuscular Volume 77.4, Mean Corpuscular Hemoglobin 25.1, Mean Corpuscular Hemoglobin Concent 32.4, Mean Platelet Volume 9.4, Neutrophils (%) (Auto) 64.0, Lymphocytes (%) (Auto) 23.2, Monocytes (%) (Auto) 11.0, Eosinophils (%) (Auto) 1.3, Basophils (%) (Auto) 0.3, Neutrophils # (Auto ) 7.66, Lymphocytes # (Auto) 2.78, Monocytes # (Auto) 1.31, Eosinophils # (Auto ) 0.16, Basophils # (Auto) 0.03 Last Resulted 05/04/16 07:40 Past 24 Hours Test 05/04/16 07:40 05/04/16 12:25 05/04/16 13:40 05/04/16 14:10 Range/Units Creatine Kinase MB 2.3 0.5-3.6 ng/ml Creatine Kinase MB Ratio 1.7 0-3.0 Total Creatine Kinase 134 39-308 U/L Troponin I < 0.015 0-0.045 ng/ml Prothromb Time International Ratio 0.9 0.9-1.1 Prothrombin Time 10.0 9.0-12.0 SECONDS EKG: As per history of present illness Telemetry reviewed: Sinus rhythm Assessment & Plan Impression: 55-year-old male 1. Long intervals of episodic to constant midline chest discomfort/tightness perhaps related to referred pain from his chronic back pain syndrome, however he has significant risk factors for ischemic heart disease age, gender, history of diabetes, dyslipidemia, cigarette smoking 2. Secondary polycythemia with history of therapeutic phlebotomy 3. Hypogonadism secondary to chronic narcotic analgesic treatment Recommendations: I've requested a resting echocardiogram for assessment of LV systolic function for regional wall motion abnormalities. Continue to trend cardiac enzymes. I discontinued his topical nitroglycerin, as I am not convinced it is helped his chest discomfort, and now he is complaining of a headache in addition to his other issues. He is a long-standing chronic pain patient, and has been followed by pain management in [place]. Given symptoms of recurrent chest discomfort, and need for preoperative risk assessment, recommend definitive coronary angiography. This has been scheduled to be performed as an outpatient will be performed this admission. I see no indication for taking the patient to the cardiac catheterization laboratory in an urgent fashion today, the patient will be tentatively scheduled for tomorrow. Joseph Garzon DO, FACC, FACOI Associate Senior Software Development Engineer [facility], [facility]
[2016-05-04 14:42] LABS: CKMB/CK RATIO 1.7 (0-3.0)
[2016-05-04] MEDS ORDERED: MoRPHine SULFATE CR 15 MG TAB (MS CONTIN) PO SCH ×2 (15:00→21:00)
[2016-05-04] MEDS ORDERED: MORPHINE SULFATE 100 MG PO SCH (15:00)
--- NOTE | 2016-05-04 15:50 | Pharmacy Progress Note ---
Glycemic: Assessment & Plan Date of Service May 04, 2016. Assessment & Plan Item Value Date Time Bedside Glucose 114 mg/dl H 05/04/16 1131 Random Glucose 278 mg/dl H 05/04/16 0740 Home Diabetes Regimen (spoke with pt on phone): * Lantus Toujeo 160 units (80+80 units) sub-q qAM x 2 days, previously 145 units qAM before that. * Novolog estimated for B/L/D/HS: 20-30 / 20 / 20-25 / 20 units * Estimated total insulin per day 250 units * Pt reports his BSG's have not been less than 200mg/dL for 2-3 weeks. He denies any recent hypoglycemic events. [facility] ADM 12/08/15: * Pt reported home Lantus (not on Toujeo at that time) was 75 units in AM, 110 units in PM * Estimated total insulin per day 185+ units. PLAN: Pt reports he took his normal Toujeo 160 units this am, he also reports his diet at home is very different than in the hospital (far more carbs at home) . He is fearful we will not feed him enough while in the hospital on a "low sugar" diet. For that reason, I am hesitant to administer his home insulin doses. Toujeo is non-formulary at [facility]. When substituting Lantus the 1st dose is 80% of Toujeo x 1, then dosed the same as Toujeo moving forward. * However, I plan to decrease home insulin regimen by 40% and adjust over time. * Basal insulin: Lantus 45 units every 12 hours starting 05/05 am. Give 1/2 dose for BSG < 100mg/dL * Correctional Insulin: Novolog Correction per scale ACHS & 0200 Goal Range: Low 120 mg/dL - High 160 mg/dL Correction Factor: 15 mg/dL/unit * Prandial insulin: Per carb ratio of 1 unit per 8 grams CHO consumed Pharmacy will continue to monitor patient daily and write orders per [facility] inpatient glycemic control protocol. Thanks. * Please note that the plan above was derived based on current level of insulin resistance and hospital stress. These recommendations are appropriate for inpatient admission only. Plan of care upon discharge will need to be reassessed to avoid potential outpatient hypo/hyperglycemia.
--- NOTE | 2016-05-04 16:31 | ECHOCARDIOGRAM REPORT ---
*NOTICE TO RECEIVING [employer] This information is strictly Confidential and protected under [place] law. [place] law prohibits you from making any further disclosure of this information unless further disclosure is expressly permitted by the written consent of the person to whom it pertains or is authorized by law. A general authorization for the release of medical or other information is not sufficient for this purpose. Hospital accepts no responsibility if the information is made available to any other person, INCLUDING THE PATIENT. Interpretation Summary * Name: DAKOTA RIOS Study Date: 05/04/2016 04:22 PM BP: 143/78 mmHg * Patient Location: C.2T\S\S239\S\2 HR: 89 * : 1960 (M/d/yyyy) Gender: Male Height: 67 in * Age: 55 yrs Ethnicity: [place] Weight: 248 lb * Ordering Physician: Joseph Garzon * Referring Physician: Self, Referred * Performed By: Lauren Reed, [facility] * * Reason For Study: CHEST PAIN * BSA: 2.2 m2 * -- Conclusions -- * There is mild concentric left ventricular hypertrophy. * The left ventricular wall motion is normal. * The LV Ejection Fraction = 55-60%. * Diastolic dysfunction, Grade II (pseudonormalization pattern). * There is no significant valvular heart disease. Procedure Details * A complete two-dimensional transthoracic echocardiogram was performed (2D, M-mode, Doppler and color flow Doppler). Left Ventricle * The left ventricle is normal in size. * There is mild concentric left ventricular hypertrophy. * Left ventricular systolic function is normal. * Ejection Fraction = 55-60%. * The left ventricular wall motion is normal. Right Ventricle * The right ventricle is normal size. * The right ventricular systolic function is normal as assessed by tricuspid annular plane systolic excursion (TAPSE) (normal >1.5 cm). Atria * The left atrial size is normal. * Right atrial size is normal. * There is no evidence of atrial septal defect, but resolution does not allow assessment for a patent foramen ovale. Mitral Valve * The mitral valve is normal. * There is no mitral valve stenosis. * Significant mitral regurgitation is absent. Tricuspid Valve * The tricuspid valve is normal. * There is no tricuspid stenosis. * Significant tricuspid regurgitation is absent. Aortic Valve * The aortic valve is trileaflet. * Aortic stenosis is absent. * There is no significant aortic regurgitation. Pulmonic Valve * The pulmonary valve is not well seen, but the Doppler examination is normal without significant regurgitation or stenosis. Great Vessels * The aortic root and proximal ascending aorta are normal sized. Pericardium/Pleural * There is no pericardial effusion. Great Vessels * Normal inferior vena cava diameter and respiratory variation suggests normal central venous pressure. Left Ventricular Diastolic Function * Diastolic dysfunction, Grade II (pseudonormalization pattern). MMode 2D Measurements and Calculations IVSd 1.4 cm IVSs 1.7 cm LVIDd 4.9 cm LVIDs 3.4 cm LVPWd 1.3 cm LVPWs 1.6 cm IVS/LVPW 1.1 FS 32.2 % EDV(Teich) 115.0 ml ESV(Teich) 45.9 ml EF(Teich) 60.1 % EDV(cubed) 120.6 ml ESV(cubed) 37.7 ml EF(cubed) 68.8 % % IVS thick 25.0 % % LVPW thick 24.4 % LV mass(C)d 263.6 grams LV mass(C)dI 119.0 grams/m\S\2 LV mass(C)s 214.3 grams LV mass(C)sI 96.7 grams/m\S\2 SV(Teich) 69.2 ml SI(Teich) 31.2 ml/m\S\2 SV(cubed) 83.0 ml SI(cubed) 37.4 ml/m\S\2 Ao root diam 3.5 cm Ao root area 9.5 cm\S\2 ACS 1.8 cm LA dimension 4.2 cm LA/Ao 1.2 LVOT diam 2.0 cm LVOT area 3.3 cm\S\2 LVAd ap4 31.6 cm\S\2 LVLd ap4 8.3 cm EDV(MOD-sp4) 98.3 ml EDV(sp4-el) 101.4 ml LVAs ap4 20.8 cm\S\2 LVLs ap4 7.5 cm ESV(MOD-sp4) 49.6 ml ESV(sp4-el) 49.4 ml EF(MOD-sp4) 49.6 % EF(sp4-el) 51.3 % LVAd ap2 36.2 cm\S\2 LVLd ap2 8.7 cm EDV(MOD-sp2) 122.5 ml EDV(sp2-el) 127.4 ml LVAs ap2 25.8 cm\S\2 LVLs ap2 7.7 cm ESV(MOD-sp2) 70.1 ml ESV(sp2-el) 73.2 ml EF(MOD-sp2) 42.8 % EF(sp2-el) 42.5 % LVLd %diff 4.6 % EDV(MOD-bp) 111.5 ml LVLs %diff 3.3 % ESV(MOD-bp) 59.9 ml EF(MOD-bp) 46.3 % SV(MOD-sp4) 48.8 ml SI(MOD-sp4) 22.0 ml/m\S\2 SV(MOD-sp2) 52.4 ml SI(MOD-sp2) 23.7 ml/m\S\2 SV(MOD-bp) 51.6 ml SI(MOD-bp) 23.3 ml/m\S\2 SV(sp4-el) 52.0 ml SI(sp4-el) 23.5 ml/m\S\2 SV(sp2-el) 54.2 ml SI(sp2-el) 24.4 ml/m\S\2 Doppler Measurements and Calculations MV E max juan 75.5 cm/sec MV A max juan 56.9 cm/sec MV E/A 1.3 MV P1/2t max juan 85.3 cm/sec MV P1/2t 67.0 msec MVA(P1/2t) 3.3 cm\S\2 MV dec slope 372.7 cm/sec\S\2 MV dec time 0.22 sec Ao V2 max 143.5 cm/sec Ao max PG 8.2 mmHg Ao max PG (full) 2.6 mmHg VICENTE(V,A) 2.7 cm\S\2 VICENTE(V,D) 2.7 cm\S\2 LV V1 max PG 5.6 mmHg LV V1 max 118.3 cm/sec PA V2 max 116.5 cm/sec PA max PG 5.4 mmHg TR max juan 284.1 cm/sec
[2016-05-04 19:22] VITALS: BP 131/82; PULSE 88; TEMP 36.8; O2SAT 95
[2016-05-04 20:00] VITALS: O2SAT 95
[2016-05-04 20:27] LABS: CKMB/CK RATIO 1.4 (0-3.0)
[2016-05-04] MEDS: MoRPHine SULFATE CR 60 MG TAB (MS CONTIN) PO SCH (21:28)
[2016-05-05] VITALS (18 sets, daily range): BP systolic 124–153; BP diastolic 77–92; PULSE 74–100; TEMP 36.5–36.9; O2SAT 90–96; Ht 170.2 cm; Wt 112.7 kg
[2016-05-05] MEDS: INSULIN ASPART 100 UNITS/ML 3 ML PEN SC SCH ×5 (02:00→21:34)
[2016-05-05] MEDS: HYDROmorphone INJ 1 MG/ML SYR IV PRN ×3 (02:12→11:49)
[2016-05-05 05:35] LABS: HEMATOCRIT 44.2 % (42-52); MEAN CORPUSCULAR HEMOGLOBIN 24.9 pg (25-34); MEAN CORPUSCULAR HGB CONC 31.9 g/dl (32-36); MEAN PLATELET VOLUME 9.1 fL (7.4-10.4); PLATELET COUNT 263 K/uL (130-400); RED BLOOD COUNT 5.67 M/uL (4.7-6.1)
[2016-05-05 06:14] LABS: BUN/CREATININE RATIO 11.1 (10-20); MAGNESIUM 2.1 mg/dl (1.8-2.4)
[2016-05-05 06:18] LABS: CHOLESTEROL/HDL RATIO 5.8
[2016-05-05] MEDS: LORAZEPAM 2 MG/ML 1 ML VIAL IV PRN ×2 (06:29→11:49)
[2016-05-05 07:18] LABS: ESTIMATED AVERAGE GLUCOSE 220 mg/dl; HA1C FLAG Normal (Normal)
[2016-05-05] MEDS: MoRPHine SULFATE IR 15 MG TAB (IMMEDIATE RELEASE) PO PRN (07:55)
[2016-05-05] MEDS: MORPHINE SULFATE 100 MG PO SCH ×2 (08:00→14:00)
[2016-05-05] MEDS ORDERED: MoRPHine SULFATE CR 15 MG TAB (MS CONTIN) PO SCH (08:00)
[2016-05-05] MEDS: METOPROLOL SUCC 25MG EXT REL TAB PO SCH (08:48)
[2016-05-05] MEDS: ASPIRIN 81 MG ECTAB PO SCH (08:48)
[2016-05-05] MEDS: NICOTINE 21 MG/24 HR TDSY TD SCH (08:50)
[2016-05-05] MEDS: INSULIN GLARGINE SC SCH ×2 (08:57→21:36)
--- NOTE | 2016-05-05 11:44 | Cardiology Follow-Up ---
Subjective General Date of Service: May 05, 2016. Pt evaluation today including: conversation w/ patient, physical exam, chart review, lab review, review of studies, review of inpatient medication list History of Present Illness The patient is a 55 year old male seen in follow up. No chest discomfort this AM. Complains of back pain. No orthopnea or PND. Offers no other complaints at this time. Allergies Coded Allergies: Uncoded Nonscreenable Allergen (Verified Allergy, Intermediate, PLASTICS: BLISTERS, 05/04/16) Adhesives (Verified Allergy, Unknown, _, 05/04/16) Clarithromycin (Verified Allergy, Unknown, 05/04/16) PT. GOT HEPATITIS B FROM THIS MED AND REQUIRED HOSPITILIZATION Social History Smoking Status: Current Every Day Smoker Hx Tobacco Use In Past Year?: Yes (on Nicotene Patch now) Hx Alcohol Use - Type And Amou: No Hx Substance Use - Type And Am: Yes (MS Cont 100 ng's BID and Dilaudid) Problem List Medical Problems: (1) Chest wall pain Status: Acute (2) Precordial chest pain Status: Acute (3) Substernal chest pain Status: Acute (4) Upper respiratory infection Status: Acute Review of Systems Respiratory: No cough, No dyspnea at rest, No hemoptysis, No shortness of breath, No wheezing Cardiac: No PND, No chest pain, No claudication, No edema, No orthopnea, No palpitations Physical Exam Vital Signs Last Vital Signs Documentation Date Time Temp Pulse Resp B/P Pulse Ox O2 Delivery O2 Flow Rate FiO2 05/05/16 10:51 36.8 74 18 143/81 95 Nasal Cannula 2.0 Physical Exam Constitutional: General Apperance: well-nourished Level of Distress: NAD Head: normocephalic, atraumatic ENMT: normal ENT inspection Lungs: Auscultation: breath sounds normal, no wheezing, no rales/crackles, no rhonchi Cardiovascular: Heart Auscultation: RRR, normal S1, normal S2, no murmurs, no rubs, no gallops Peripheral Pulses: Radial Pulse: normal on the left, normal on the right Femoral Pulse: normal on the left, normal on the right Abdomen: Bowel Sounds: normal Inspection & Palpation: soft, non-distended, no tenderness, guarding & rebound Extremities: no cyanosis, no edema, no clubbing, no ulcers Neurologic: Cranial Nerves: grossly intact Assessment and Plan Assessment and Plan Impression: 1. 55-year-old male with prolonged period of episodic midline chest discomfort and tightness. - Pain possibly referred from his chronic back pain syndrome. tightness perhaps related to referred pain from his chronic back pain syndrome, however he has - Significant risk factors for ischemic heart disease including age, DM-2, dyslipidemia, and active tobacco abuse. 2. Secondary polycythemia with history of therapeutic phlebotomy 3. 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 Risks, benefits, and alternatives to left heart catheterization with coronary angiography discussed. Patient is agreeable to have procedure as inpatient. ( The procedure had been previously scheduled for next week with Dr. Johnson.) He is a bare metal stent candidate due to need for spinal surgery in the near future. He will be given 325mg of aspirin now prior to cardiac catheterization. Serafin Cast DO, [facility] Laboratory Results Last 24 Hours Test 05/04/16 11:31 05/04/16 12:25 05/04/16 14:10 05/04/16 19:40 Bedside Glucose 114 mg/dl Prothrombin Time 10.0 SECONDS Prothromb Time International Ratio 0.9 Activated Partial Thromboplast Time 25.3 SECONDS Partial Thromboplastin Ratio 1.0 Total Creatine Kinase 113 U/L 107 U/L Creatine Kinase MB 1.9 ng/ml 1.5 ng/ml Creatine Kinase MB Ratio 1.7 1.4 Troponin I < 0.015 ng/ml < 0.015 ng/ml Test 05/05/16 05:10 05/05/16 05:15 Estimated Average Glucose 220 mg/dl Hemoglobin A1c 9.3 % White Blood Count 10.10 K/uL Red Blood Count 5.67 M/uL Hemoglobin 14.1 g/dL Hematocrit 44.2 % Mean Corpuscular Volume 78.0 fL Mean Corpuscular Hemoglobin 24.9 pg Mean Corpuscular Hemoglobin Concent 31.9 g/dl RDW Standard Deviation 46.9 fL RDW Coefficient of Variation 16.5 % Platelet Count 263 K/uL Mean Platelet Volume 9.1 fL Sodium Level 139 mmol/L Potassium Level 4.0 mmol/L Chloride Level 101 mmol/L Carbon Dioxide Level 26 mmol/L Anion Gap 12.0 mmol/L Blood Urea Nitrogen 11 mg/dl Creatinine 1.00 mg/dl Est Creatinine Clear Calc Drug Dose 103.2 ml/min Estimated GFR () 99.2 Estimated GFR (Non- 85.5 BUN/Creatinine Ratio 11.1 Random Glucose 172 mg/dl Calcium Level 9.0 mg/dl Magnesium Level 2.1 mg/dl Triglycerides Level 358 mg/dl Cholesterol Level 184 mg/dl HDL Cholesterol 32 mg/dl LDL Cholesterol, Calculated 80 mg/dl VLDL Cholesterol, Calculated 72 mg/dl Cholesterol/HDL Ratio 5.8
--- NOTE | 2016-05-05 14:24 | Pharmacy Progress Note ---
Glycemic: Assessment & Plan Date of Service May 05, 2016. 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 Lunch BSG = 120mg/dL. Will "loosen " ordered Novolog CF/CR and reassess tomorrow. * Basal insulin: Continue Lantus 45 units every 12 hours * Correctional Insulin: Novolog Correction per scale ACHS & 0200 Goal Range: Low 120 mg/dL - High 160 mg/dL "Loosened" Correction Factor: 20 mg/dL/unit (was 15) * Prandial insulin: "Loosened" carb ratio of 1 unit per 10 grams CHO consumed (was 8) Pharmacy will continue to monitor patient daily and write orders per [facility] inpatient glycemic control protocol. Thanks. * Please note that the plan above was derived based on current level of insulin resistance and hospital stress. These recommendations are appropriate for inpatient admission only. Plan of care upon discharge will need to be reassessed to avoid potential outpatient hypo/hyperglycemia.
[2016-05-05] MEDS ORDERED: FENTANYL CITRATE INJ 50 MCG/1 ML 2 ML VIAL ONE (14:45)
[2016-05-05] MEDS ORDERED: MIDAZOLAM HCL 1 MG/ML 2ML VIAL ONE (14:45)
[2016-05-05] MEDS ORDERED: SODIUM CHLORIDE 0.9% 1000ML 250 ML IV PRN (15:44)
[2016-05-05] MEDS ORDERED: ONDANSETRON INJ 2 MG/ML 2 ML VIAL IV PRN (15:45)
[2016-05-05] MEDS ORDERED: ACETAMINOPHEN 325 MG TAB PO PRN (15:45)
--- NOTE | 2016-05-05 15:50 | Cardiac Catheterization ---
Procedure Note Procedure Date May 05, 2016. Pre-Procedure Diagnosis Cardiothoracic Symptom AUC Score 7 Post-Procedure Diagnosis Mild CAD Procedure(s) Performed Coronary Angiography, Left Heart Cath Slot Floor Supervisor Dr. Cast Habilitation Training Specialist(s) [place]unt Estimated Blood Loss 5cc Medication(s) Versed, Lidocaine 1% Summary of Findings Mild nonobstructive CAD Hemodynamics Rest Ao: 150/91/115 Final Ao: 144/82/109 LV: 132/10/15 Recommendations Medical therapy and/or Counseling Specimens None Radiation Exposure (mGy) 949 Contrast (mls) 55 Fluids (cc crystalloids) 60 Procedural Complication(s) None Disposition PCU ACC Data Cardiac Status Clinical evaluation leading to the procedure CAD Presntation: Sx unlikely to be ischemic Stress Echocardiogram: Yes - Indeterminant Coronary Anatomy Dominant: Left Left Main (% Stenosis): Normal LAD (% Stenosis): Ostial (0%), Proximal (10%), Mid (20%), Distal (0%) D1 (% Stenosis): Ostial (30%), Proximal (10%), Mid (0%), Distal (0%) D2 (% Stenosis): Normal Circumflex (% Stenosis): Ostial (0%), Proximal (0%), Mid (10%), Distal (0%) OM1 (% Stenosis): Normal L PL1 (% Stenosis): Normal L PL2 (% Stenosis): Normal L PDA (% Stenosis): Normal RCA (% Stenosis): Normal Diagnostic Status: Elective Closure Device Percutaneous Entry Location: Femoral Closure Device: Mynx Recommendations: Medical therapy and/or Counseling Intraprocedure Events Significant Dissection: No Perforation: No
--- NOTE | 2016-05-05 15:51 | Procedure Note ---
Pre-Mod Sedation Assessment General Date of Moderate Sedation: May 05, 2016. Vital Signs: Vital Signs Past 12 Hours Date Time Temp Pulse Resp B/P Pulse Ox O2 Delivery O2 Flow Rate FiO2 05/05/16 15:25 93 20 164/87 98 Room Air 05/05/16 11:42 36.9 94 18 139/83 96 Room Air 05/05/16 10:51 36.8 74 18 143/81 95 Nasal Cannula 2.0 05/05/16 07:41 36.8 74 18 143/81 95 Nasal Cannula 2.0 05/05/16 04:00 95 Room Air Review Cardiovascular: regular rate, rhythm, no edema, no gallop, no murmur Abdomen: normal bowel sounds, non tender, soft Lungs: lungs clear, normal breath sounds, no respiratory distress Pre-Sedation Airway Assessment Oral Cavity: WNL Short Thick Neck: Yes Hx of Sleep Apnea: Yes Smoking Status: Current Every Day Smoker Mallampati Classification: Class III ASA Classification: Class III Procedure Planning Contraindications-for Mod Sed: None Yes Notes The planned sedation has been discussed with the patient and consent obtained. I have identified the patient, determined the appropriateness of sedation and have assessed the patient immediately prior to the procedure. All medicine(s) and interventions are by my order.
--- NOTE | 2016-05-05 15:51 | Procedure Note ---
Post-Mod Sedation Assessment General Date of Moderate Sedation May 05, 2016. Vital Signs: Vital Signs Past 12 Hours Date Time Temp Pulse Resp B/P Pulse Ox O2 Delivery O2 Flow Rate FiO2 05/05/16 15:25 93 20 164/87 98 Room Air 05/05/16 11:42 36.9 94 18 139/83 96 Room Air 05/05/16 10:51 36.8 74 18 143/81 95 Nasal Cannula 2.0 05/05/16 07:41 36.8 74 18 143/81 95 Nasal Cannula 2.0 05/05/16 04:00 95 Room Air Review - Discharge Criteria Vital Signs Stable: Yes Alert/Oriented/Conversant: Yes Returned to Baseline Mental St: Yes Nausea Absent/Minimal: Yes Pain/Discomfort/Absent/Minimal: Yes Normal/Baseline Respirations: Yes Active Bleeding?: No Pt Received D/C Instructions: N/A Prescriptions Given: None Specific Proced. D/C Criteria Distal Pulses Present (Cardiac: Yes Groin site assessed-Card Cath: Yes Voided Prior To Discharge: N/A Discharged Patients Adult Escort/Transportation: N/A
--- NOTE | 2016-05-05 17:15 | Progress Note ---
Subjective Date of Service: May 05, 2016. Subjective Pt evaluation today including: conversation w/ patient, physical exam, lab review, review of studies, review of inpatient medication list Saw/examined the patient in room 239 prior to cath this morning No complaints, denies chest pain overnight +Joint pain chronically; back pain +insomnia; +anxiety Problem List Medical Problems: (1) Chest wall pain Status: Acute (2) Precordial chest pain Status: Acute (3) Substernal chest pain Status: Acute (4) Upper respiratory infection Status: Acute Review of Systems Constitutional: No chills, No fever Respiratory: No cough, No shortness of breath, No sputum Cardiac: No chest pain, No edema, No palpitations Abdomen: No diarrhea, No nausea, No pain, No vomiting Psychiatric: + anxiety, + insomnia, No depression symptoms Medications Current Inpatient Medications Medications (Trade) Dose Ordered Sig/Shivani Route Start Time Stop Time Status Last Admin Dose Admin Enoxaparin Sodium (Lovenox Inj) 40 mg Q24H SC 05/04/16 13:00 06/03/16 12:59 Future Hold 05/04/16 13:20 40 MG Ondansetron HCl (Zofran Inj) 4 mg Q6H PRN IV 05/04/16 09:30 06/03/16 09:29 Aspirin (Ecotrin Tab) 81 mg QAM PO 05/05/16 09:00 06/04/16 08:59 05/05/16 08:48 81 MG Albuterol (Ventolin Hfa Inhaler) 2 puffs QID PRN INH 05/04/16 09:30 06/03/16 09:29 Metoprolol Succinate (Toprol Xl Tab) 12.5 mg DAILY PO 05/05/16 09:00 06/04/16 08:59 05/05/16 08:48 12.5 MG Morphine Sulfate (MoRPHine SULFATE IR TAB) 15 mg Q12 PRN PO 05/04/16 09:30 05/18/16 09:29 05/05/16 07:55 15 MG Pantoprazole Sodium (Protonix Tab) 40 mg DAILY PRN PO 05/04/16 09:30 06/03/16 09:29 Miscellaneous Information (Order Awaiting Action) 1 ea QS N/A 05/04/16 16:00 06/03/16 15:59 Insulin Glargine (Lantus Vial) 45 unit Q12 SC 05/05/16 09:00 06/04/16 08:59 05/05/16 08:57 45 UNIT Insulin Aspart (novoLOG ASPART) SLIDING SCALE If C... ACHS SC 05/04/16 11:00 06/03/16 10:59 05/05/16 07:00 1 UNITS Glucose (Glucose 40% Gel) 15-30 GRAMS 15 GRAMS... UD PRN PO 05/04/16 09:30 06/03/16 09:29 Glucose (Glucose Chew Tab) 4-8 Tablets 4 Tabl... UD PRN PO 05/04/16 09:30 06/03/16 09:29 Dextrose (Dextrose 50% 50ML Syringe) 25-50ML OF 50% DW IV FOR... UD PRN IV 05/04/16 09:30 06/03/16 09:29 Glucagon (Glucagon Inj) 1 mg UD PRN SQ 05/04/16 09:30 06/03/16 09:29 Miscellaneous Information (Consult Glycemic Management Pharmacy) 1 ea UD PRN N/A 05/04/16 09:31 06/03/16 09:30 Miscellaneous (Iv Fluids Completed) 1 ea PRN PRN N/A 05/04/16 09:30 05/04/17 09:29 Nicotine (Nicoderm Cq 21MG Patch) 1 patch QAM TD 05/05/16 09:00 06/04/16 08:59 05/05/16 08:50 1 PATCH Miscellaneous (Remove Nicoderm Patch) 1 ea HS N/A 05/04/16 21:00 06/03/16 20:59 05/04/16 21:13 1 EA Hydromorphone HCl (Dilaudid Inj) 1 mg Q4 PRN IV 05/04/16 16:00 05/18/16 15:59 05/05/16 06:05 1 MG Morphine Sulfate (Ms Contin Tab) 100 mg BID@0800,1400 PO 05/04/16 14:00 05/18/16 13:59 05/05/16 14:00 100 MG Lorazepam 1 mg 1 mg Q4H PRN IV 05/04/16 13:45 06/03/16 13:44 05/05/16 06:29 1 MG Lorazepam/Syringe (Ativan Inj/ Syringe) 1 ml @ 1 mls/min Q4H PRN IV 05/04/16 14:00 06/03/16 13:59 Insulin Aspart (novoLOG ASPART) SLIDING SCALE If C... 0200 SC 05/05/16 02:00 06/04/16 01:59 05/05/16 02:00 5 UNITS Morphine Sulfate (Ms Contin Tab) 60 mg HS PO 05/04/16 21:00 05/18/16 20:59 05/04/16 21:28 60 MG Acetaminophen 650 mg 650 mg Q4H PRN PO 05/05/16 15:45 06/04/16 15:44 Sodium Chloride (Nss 1000ml) 250 ml @ 999 mls/hr Q16M PRN IV 05/05/16 15:44 06/04/16 15:43 Objective Vital Signs Date Time Temp Pulse Resp B/P Pulse Ox O2 Delivery O2 Flow Rate FiO2 05/05/16 16:45 91 20 139/84 91 CPAP 05/05/16 16:15 94 18 128/86 93 CPAP 05/05/16 15:53 36.6 94 18 137/77 93 05/05/16 15:45 89 20 124/82 94 CPAP 05/05/16 15:30 92 18 128/88 94 CPAP 05/05/16 15:25 93 20 164/87 98 Room Air 05/05/16 15:15 90 20 128/79 90 CPAP 05/05/16 15:00 85 18 124/78 93 CPAP 05/05/16 14:45 36.8 88 20 132/81 94 CPAP 05/05/16 11:42 36.9 94 18 139/83 96 Room Air 05/05/16 10:51 36.8 74 18 143/81 95 Nasal Cannula 2.0 05/05/16 07:41 36.8 74 18 143/81 95 Nasal Cannula 2.0 05/05/16 04:00 95 Room Air 05/05/16 03:30 36.6 81 20 152/92 95 Room Air 05/05/16 00:01 94 Room Air 05/05/16 00:00 36.8 100 20 153/78 94 Room Air 05/04/16 20:00 95 Room Air 05/04/16 19:22 36.8 88 20 131/82 95 Room Air Physical Exam General Appearance: no apparent distress Respiratory/Chest: lungs clear, normal breath sounds, no respiratory distress, no accessory muscle use Cardiovascular: regular rate, rhythm, no edema, no murmur Abdomen: normal bowel sounds, non tender, soft Extremities: normal inspection, no pedal edema Laboratory Results Last 24 Hours Test 05/04/16 19:40 05/04/16 19:59 05/05/16 01:53 05/05/16 05:10 Total Creatine Kinase 107 U/L Creatine Kinase MB 1.5 ng/ml Creatine Kinase MB Ratio 1.4 Troponin I < 0.015 ng/ml Bedside Glucose 166 mg/dl 225 mg/dl Estimated Average Glucose 220 mg/dl Hemoglobin A1c 9.3 % Test 05/05/16 05:15 05/05/16 06:07 05/05/16 11:13 05/05/16 16:22 White Blood Count 10.10 K/uL Red Blood Count 5.67 M/uL Hemoglobin 14.1 g/dL Hematocrit 44.2 % Mean Corpuscular Volume 78.0 fL Mean Corpuscular Hemoglobin 24.9 pg Mean Corpuscular Hemoglobin Concent 31.9 g/dl RDW Standard Deviation 46.9 fL RDW Coefficient of Variation 16.5 % Platelet Count 263 K/uL Mean Platelet Volume 9.1 fL Sodium Level 139 mmol/L Potassium Level 4.0 mmol/L Chloride Level 101 mmol/L Carbon Dioxide Level 26 mmol/L Anion Gap 12.0 mmol/L Blood Urea Nitrogen 11 mg/dl Creatinine 1.00 mg/dl Est Creatinine Clear Calc Drug Dose 103.2 ml/min Estimated GFR () 99.2 Estimated GFR (Non- 85.5 BUN/Creatinine Ratio 11.1 Random Glucose 172 mg/dl Calcium Level 9.0 mg/dl Magnesium Level 2.1 mg/dl Triglycerides Level 358 mg/dl Cholesterol Level 184 mg/dl HDL Cholesterol 32 mg/dl LDL Cholesterol, Calculated 80 mg/dl VLDL Cholesterol, Calculated 72 mg/dl Cholesterol/HDL Ratio 5.8 Bedside Glucose 182 mg/dl 120 mg/dl 100 mg/dl Assessment and Plan 55 year old male presents to the ED with worsening chest pain. He has been having chest pain for several weeks and is scheduled for a heart cath next week CHEST PAIN R/O ACS 05/05 * s/p diagnostic cardiac cath today * mild CAD, no PCI * medical management as per cardiology * will avoid narcotics when possible * wean patient back to home medications as per pain management -Observation in tele -First set of CE negative in ED -Risk factors: Tobacco abuse, IDDM, HTN, HLD, obesity -Serial Álvaro and EKGs -Fasting lipid panel in AM -continue Aspirin and BB daily -nitropaste 1 inch q6h -Cardiology consult for further management input appreciated -defer to cardiology for repeat echo -will keep npo until seen by cardiology -TSH, Mg pending -CBC, PRP, Mg daily -VSS stable, monitor in tele -Had repeat chest pain in ED, EKG repeated, medicated with 2mg IV morphine x 1 dose, [place] prescription drug program reviewed. IDDM 05/05 * Ha1c = 9.3% * uncontrolled, largely due to noncompliance with diabetic diet -check A1c -is on a very large amount of insulin as outpatient -SSI coverage -Lantus 50 U BID -pharmacy consulted for glycemic control HTN -slightly high -continue BB -add nitro paste -monitor in tele HLD -per chart -check lipid panel AR -continue CPAP ASTHMA -stable -continue nebs, inhalers TOBACCO ABUSE -Cessation counseling given -Nicotine patch ordered GERD -continue PPI CHRONIC BACK PAIN -patient is very particular about pain regimen -continue outpatient pain regimen SECONDARY POLYCYTHEMIA -has monthly phlebotomy -H&H stable -monitor DVT PROPHYLAXIS: Sq Lovenox CODE STATUS: FULL CODE DISPO:observation pending further workup
[2016-05-05] MEDS: MoRPHine SULFATE CR 60 MG TAB (MS CONTIN) PO SCH (21:20)
[2016-05-06 00:01] VITALS: O2SAT 96
[2016-05-06 00:02] VITALS: BP 136/76; PULSE 88; TEMP 36.7; O2SAT 96
[2016-05-06] MEDS: HYDROmorphone INJ 1 MG/ML SYR IV PRN ×2 (00:31→05:15)
[2016-05-06] MEDS: INSULIN ASPART 100 UNITS/ML 3 ML PEN SC SCH ×2 (02:00→07:00)
[2016-05-06 03:50] VITALS: BP 135/69; PULSE 86; TEMP 36.7; O2SAT 94
[2016-05-06 04:00] VITALS: O2SAT 96
[2016-05-06] MEDS: MoRPHine SULFATE IR 15 MG TAB (IMMEDIATE RELEASE) PO PRN (06:00)
[2016-05-06 07:13] VITALS: BP 114/78; PULSE 87; TEMP 37.5; O2SAT 96
[2016-05-06 07:42] LABS: HEMATOCRIT 43.6 % (42-52); MEAN CELL VOLUME 77.7 fL (80-100); MEAN CORPUSCULAR HEMOGLOBIN 24.8 pg (25-34); MEAN CORPUSCULAR HGB CONC 31.9 g/dl (32-36); MEAN PLATELET VOLUME 9.7 fL (7.4-10.4); PLATELET COUNT 242 K/uL (130-400); RED BLOOD COUNT 5.61 M/uL (4.7-6.1); WHITE BLOOD COUNT 9.34 K/uL (4.8-10.8)
[2016-05-06] MEDS: ASPIRIN 81 MG ECTAB PO SCH (07:56)
[2016-05-06] MEDS: NICOTINE 21 MG/24 HR TDSY TD SCH (07:56)
[2016-05-06] MEDS: METOPROLOL SUCC 25MG EXT REL TAB PO SCH (07:56)
[2016-05-06] MEDS: MORPHINE SULFATE 100 MG PO SCH (08:00)
[2016-05-06] MEDS: INSULIN GLARGINE SC SCH (08:03)
[2016-05-06 08:13] LABS: BUN/CREATININE RATIO 10.4 (10-20); CALCIUM 8.8 mg/dl (8.5-10.1)
--- NOTE | 2016-05-06 09:23 | Progress Note ---
Subjective Date of Service: May 06, 2016. Subjective Pt evaluation today including: conversation w/ patient, physical exam, lab review, review of studies, review of inpatient medication list Saw/examined the patient in room 239 Doing better today, though anxious about why he was having chest pain cardiac cath was performed yesterday and he tolerated it well No other issues to note Problem List Medical Problems: (1) Chest wall pain Status: Acute (2) Precordial chest pain Status: Acute (3) Substernal chest pain Status: Acute (4) Upper respiratory infection Status: Acute Review of Systems Constitutional: No chills, No fever Respiratory: No cough, No shortness of breath Cardiac: No chest pain, No edema, No palpitations Abdomen: No diarrhea, No nausea, No pain, No vomiting Heme: No abnormal bleeding/bruising Medications Current Inpatient Medications Medications (Trade) Dose Ordered Sig/Shivani Route Start Time Stop Time Status Last Admin Dose Admin Enoxaparin Sodium (Lovenox Inj) 40 mg Q24H SC 05/04/16 13:00 06/03/16 12:59 Future Hold 05/04/16 13:20 40 MG Ondansetron HCl (Zofran Inj) 4 mg Q6H PRN IV 05/04/16 09:30 06/03/16 09:29 Aspirin (Ecotrin Tab) 81 mg QAM PO 05/05/16 09:00 06/04/16 08:59 05/06/16 07:56 81 MG Albuterol (Ventolin Hfa Inhaler) 2 puffs QID PRN INH 05/04/16 09:30 06/03/16 09:29 Metoprolol Succinate (Toprol Xl Tab) 12.5 mg DAILY PO 05/05/16 09:00 06/04/16 08:59 05/06/16 07:56 12.5 MG Morphine Sulfate (MoRPHine SULFATE IR TAB) 15 mg Q12 PRN PO 05/04/16 09:30 05/18/16 09:29 05/06/16 06:00 15 MG Pantoprazole Sodium (Protonix Tab) 40 mg DAILY PRN PO 05/04/16 09:30 06/03/16 09:29 05/06/16 07:56 40 MG Miscellaneous Information (Order Awaiting Action) 1 ea QS N/A 05/04/16 16:00 06/03/16 15:59 Insulin Glargine (Lantus Vial) 45 unit Q12 SC 05/05/16 09:00 06/04/16 08:59 05/06/16 08:03 45 UNIT Insulin Aspart (novoLOG ASPART) SLIDING SCALE If C... ACHS SC 05/04/16 11:00 06/03/16 10:59 05/06/16 07:00 14 UNITS Glucose (Glucose 40% Gel) 15-30 GRAMS 15 GRAMS... UD PRN PO 05/04/16 09:30 06/03/16 09:29 Glucose (Glucose Chew Tab) 4-8 Tablets 4 Tabl... UD PRN PO 05/04/16 09:30 06/03/16 09:29 Dextrose (Dextrose 50% 50ML Syringe) 25-50ML OF 50% DW IV FOR... UD PRN IV 05/04/16 09:30 06/03/16 09:29 Glucagon (Glucagon Inj) 1 mg UD PRN SQ 05/04/16 09:30 06/03/16 09:29 Miscellaneous Information (Consult Glycemic Management Pharmacy) 1 ea UD PRN N/A 05/04/16 09:31 06/03/16 09:30 Miscellaneous (Iv Fluids Completed) 1 ea PRN PRN N/A 05/04/16 09:30 05/04/17 09:29 Nicotine (Nicoderm Cq 21MG Patch) 1 patch QAM TD 05/05/16 09:00 06/04/16 08:59 05/06/16 07:56 1 PATCH Miscellaneous (Remove Nicoderm Patch) 1 ea HS N/A 05/04/16 21:00 06/03/16 20:59 05/05/16 21:18 1 EA Morphine Sulfate (Ms Contin Tab) 100 mg BID@0800,1400 PO 05/04/16 14:00 05/18/16 13:59 05/06/16 08:00 100 MG Lorazepam 1 mg 1 mg Q4H PRN IV 05/04/16 13:45 06/03/16 13:44 05/05/16 11:49 1 MG Lorazepam/Syringe (Ativan Inj/ Syringe) 1 ml @ 1 mls/min Q4H PRN IV 05/04/16 14:00 06/03/16 13:59 Insulin Aspart (novoLOG ASPART) SLIDING SCALE If C... 0200 SC 05/05/16 02:00 06/04/16 01:59 05/06/16 02:00 1 UNITS Morphine Sulfate (Ms Contin Tab) 60 mg HS PO 05/04/16 21:00 05/18/16 20:59 05/05/16 21:20 60 MG Acetaminophen 650 mg 650 mg Q4H PRN PO 05/05/16 15:45 06/04/16 15:44 Sodium Chloride (Nss 1000ml) 250 ml @ 999 mls/hr Q16M PRN IV 05/05/16 15:44 06/04/16 15:43 Objective Vital Signs Date Time Temp Pulse Resp B/P Pulse Ox O2 Delivery O2 Flow Rate FiO2 05/06/16 07:13 37.5 87 18 114/78 96 Room Air 05/06/16 04:00 96 CPAP 05/06/16 03:50 36.7 86 18 135/69 94 CPAP 05/06/16 00:02 36.7 88 18 136/76 96 CPAP 05/06/16 00:01 96 CPAP 05/05/16 20:00 95 05/05/16 19:53 36.5 88 18 135/86 95 05/05/16 16:45 91 20 139/84 91 CPAP 05/05/16 16:15 94 18 128/86 93 CPAP 05/05/16 15:53 36.6 94 18 137/77 93 05/05/16 15:45 89 20 124/82 94 CPAP 05/05/16 15:30 92 18 128/88 94 CPAP 05/05/16 15:25 93 20 164/87 98 Room Air 05/05/16 15:15 90 20 128/79 90 CPAP 05/05/16 15:00 85 18 124/78 93 CPAP 05/05/16 14:45 36.8 88 20 132/81 94 CPAP 05/05/16 11:42 36.9 94 18 139/83 96 Room Air 05/05/16 10:51 36.8 74 18 143/81 95 Nasal Cannula 2.0 Physical Exam General Appearance: no apparent distress, + obese Respiratory/Chest: lungs clear, normal breath sounds, no respiratory distress, no accessory muscle use Cardiovascular: regular rate, rhythm, no edema, no murmur Abdomen: normal bowel sounds, non tender, soft Neurologic/Psychiatric: no motor/sensory deficits, alert, + pertinent finding ( +anxious affect) Skin: normal color Laboratory Results Last 24 Hours Test 05/05/16 11:13 05/05/16 16:22 05/05/16 20:18 05/06/16 01:52 Bedside Glucose 120 mg/dl 100 mg/dl 130 mg/dl 172 mg/dl Test 05/06/16 06:40 05/06/16 06:44 White Blood Count 9.34 K/uL Red Blood Count 5.61 M/uL Hemoglobin 13.9 g/dL Hematocrit 43.6 % Mean Corpuscular Volume 77.7 fL Mean Corpuscular Hemoglobin 24.8 pg Mean Corpuscular Hemoglobin Concent 31.9 g/dl RDW Standard Deviation 46.4 fL RDW Coefficient of Variation 16.3 % Platelet Count 242 K/uL Mean Platelet Volume 9.7 fL Sodium Level 138 mmol/L Potassium Level 4.0 mmol/L Chloride Level 102 mmol/L Carbon Dioxide Level 25 mmol/L Anion Gap 11.0 mmol/L Blood Urea Nitrogen 10 mg/dl Creatinine 1.00 mg/dl Est Creatinine Clear Calc Drug Dose 102.4 ml/min Estimated GFR () 99.2 Estimated GFR (Non- 85.5 BUN/Creatinine Ratio 10.4 Random Glucose 161 mg/dl Calcium Level 8.8 mg/dl Magnesium Level 2.0 mg/dl Bedside Glucose 162 mg/dl Assessment and Plan 55 year old male presents to the ED with worsening chest pain. He has been having chest pain for several weeks and is scheduled for a heart cath next week CHEST PAIN R/O ACS 05/06 * Cardiac cath performed yesterday * Mild CAD * Continue b-judit. Will need to add BLEGICA-I due to DM2 * Start statin 05/05 * s/p diagnostic cardiac cath today * mild CAD, no PCI * medical management as per cardiology * will avoid narcotics when possible * wean patient back to home medications as per pain management -Observation in tele -First set of CE negative in ED -Risk factors: Tobacco abuse, IDDM, HTN, HLD, obesity -Serial Álvaro and EKGs -Fasting lipid panel in AM -continue Aspirin and BB daily -nitropaste 1 inch q6h -Cardiology consult for further management input appreciated -defer to cardiology for repeat echo -will keep npo until seen by cardiology -TSH, Mg pending -CBC, PRP, Mg daily -VSS stable, monitor in tele -Had repeat chest pain in ED, EKG repeated, medicated with 2mg IV morphine x 1 dose, [place] prescription drug [place]. IDDM 05/05 * Ha1c = 9.3% * uncontrolled, largely due to noncompliance with diabetic diet -check A1c -is on a very large amount of insulin as outpatient -SSI coverage -Lantus 50 U BID -pharmacy consulted for glycemic control HTN -slightly high -continue BB -add nitro paste -monitor in tele HLD -per chart -check lipid panel AR -continue CPAP ASTHMA -stable -continue nebs, inhalers TOBACCO ABUSE -Cessation counseling given -Nicotine patch ordered GERD -continue PPI CHRONIC BACK PAIN -patient is very particular about pain regimen -continue outpatient pain regimen SECONDARY POLYCYTHEMIA -has monthly phlebotomy -H&H stable -monitor DVT PROPHYLAXIS: Sq Lovenox CODE STATUS: FULL CODE DISPO:observation pending further workup
[2016-05-06] MEDS ORDERED: ATOR-54 PO ×2 (09:25→11:54)
[2016-05-06] MEDS ORDERED: LSN5 PO (09:25)
[2016-05-06] MEDS ORDERED: ATORVASTATIN 20 MG TAB PO ONE (09:26)
--- NOTE | 2016-05-06 09:27 | Cardiology Follow-Up ---
Subjective General Date of Service: May 06, 2016. Pt evaluation today including: conversation w/ patient, physical exam, chart review, lab review, review of studies, conversation w/ data virtualization consultant, review of inpatient medication list History of Present Illness The patient is a 55 year old male seen in follow up. Cardiac catheterization performed yesterday demonstrating mild nonobstructive CAD No recurrent chest discomfort this AM. Patient currently not taking statin due to personal preference. Back pain controlled. Mild right groin soreness. No orthopnea or PND. Offers no other complaints at this time. Allergies Coded Allergies: Uncoded Nonscreenable Allergen (Verified Allergy, Intermediate, PLASTICS: BLISTERS, 05/04/16) Adhesives (Verified Allergy, Unknown, _, 05/04/16) Clarithromycin (Verified Allergy, Unknown, 05/04/16) PT. GOT HEPATITIS B FROM THIS MED AND REQUIRED HOSPITILIZATION Social History Smoking Status: Current Every Day Smoker Hx Tobacco Use In Past Year?: Yes (on Nicotene Patch now) Hx Alcohol Use - Type And Amou: No Hx Substance Use - Type And Am: Yes (MS Cont 100 ng's BID and Dilaudid) Problem List Medical Problems: (1) Chest wall pain Status: Acute (2) Precordial chest pain Status: Acute (3) Substernal chest pain Status: Acute (4) Upper respiratory infection Status: Acute Review of Systems Respiratory: No cough, No dyspnea at rest, No hemoptysis, No problem reported, No shortness of breath, No wheezing Cardiac: No PND, No chest pain, No claudication, No edema, No orthopnea, No palpitations Physical Exam Vital Signs Last Vital Signs Documentation Date Time Temp Pulse Resp B/P Pulse Ox O2 Delivery O2 Flow Rate FiO2 05/06/16 07:13 37.5 87 18 114/78 96 Room Air 05/05/16 10:51 2.0 Physical Exam Constitutional: General Apperance: well-nourished, obese Level of Distress: NAD Head: normocephalic, atraumatic ENMT: normal ENT inspection Lungs: Auscultation: breath sounds normal, no wheezing, no rales/crackles, no rhonchi Cardiovascular: Heart Auscultation: RRR, normal S1, normal S2, no murmurs, no rubs, no gallops Peripheral Pulses: Radial Pulse: normal on the left, normal on the right Femoral Pulse: normal on the left, normal on the right Abdomen: Bowel Sounds: normal Inspection & Palpation: soft, non-distended, no tenderness, guarding & rebound Extremities: no cyanosis, no edema, no clubbing, no ulcers, pertinent finding ( right groin soft, no hematoma) Neurologic: Cranial Nerves: grossly intact Assessment and Plan Assessment and Plan Impression: 1. Mild nonobstructive CAD 2. Dyslipidemia - patient previously declined statin therapy 3. Tobacco abuse 4. Secondary polycythemia with history of therapeutic phlebotomy 5. 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 DM- 2 Plan/Recommendations: Patient is considered moderate risk from a cardiovascular perspective for spinal surgery. No further cardiac testing at this time. Beta judit should be continued uninterrupted raymundo-operatively. Discussed indication for statin therapy. Patient is hesitant to begin medication secondary to potential side effects. After a long discussion he is agreeable to atorvastatin 20mg daily. Will sign off. Please call with questions. Serafin Cast DO, [facility] Laboratory Results Last 24 Hours Test 05/05/16 11:13 05/05/16 16:22 05/05/16 20:18 05/06/16 01:52 Bedside Glucose 120 mg/dl 100 mg/dl 130 mg/dl 172 mg/dl Test 05/06/16 06:40 05/06/16 06:44 White Blood Count 9.34 K/uL Red Blood Count 5.61 M/uL Hemoglobin 13.9 g/dL Hematocrit 43.6 % Mean Corpuscular Volume 77.7 fL Mean Corpuscular Hemoglobin 24.8 pg Mean Corpuscular Hemoglobin Concent 31.9 g/dl RDW Standard Deviation 46.4 fL RDW Coefficient of Variation 16.3 % Platelet Count 242 K/uL Mean Platelet Volume 9.7 fL Sodium Level 138 mmol/L Potassium Level 4.0 mmol/L Chloride Level 102 mmol/L Carbon Dioxide Level 25 mmol/L Anion Gap 11.0 mmol/L Blood Urea Nitrogen 10 mg/dl Creatinine 1.00 mg/dl Est Creatinine Clear Calc Drug Dose 102.4 ml/min Estimated GFR () 99.2 Estimated GFR (Non- 85.5 BUN/Creatinine Ratio 10.4 Random Glucose 161 mg/dl Calcium Level 8.8 mg/dl Magnesium Level 2.0 mg/dl Bedside Glucose 162 mg/dl
--- NOTE | 2016-05-06 10:03 | Discharge Instructions ---
Discharge Instructions Admission Reason for Admission: Chest Pain Discharge Discharge Diagnosis / Problem: Chest Pain; mild CAD Discharge Goals Goal(s): Decrease discomfort, Improve function Activity Recommendations Activity Limitations: resume your previous activity . Instructions / Follow-Up Instructions / Follow-Up Please follow-up with Dr. Sampson on May 11 @ 11:10AM * You will be started on Lipitor 20mg daily * Please take lisinopril 5mg daily * All other medications will remain the same Current Hospital Diet Patient's current hospital diet: AHA Diet (Heart Healthy), Diabetes Type 2 Diet Discharge Diet Recommended Diet: AHA Diet (Heart Healthy), Diabetes Type 2 Diet Pending Studies Studies pending at discharge: no Laboratory Results Hemoglobin A1c Test 05/05/16 05:10 Range/Units Estimated Average Glucose 220 mg/dl Hemoglobin A1c 9.3 H 4.5-5.6 % Lipid Panel Test 05/05/16 05:15 Range/Units Triglycerides Level 358 H 0-150 mg/dl Cholesterol Level 184 0-200 mg/dl HDL Cholesterol 32 mg/dl Cholesterol/HDL Ratio 5.8 LDL Cholesterol, Calculated 80 mg/dl Medical Emergencies . Who to Call and When: Medical Emergencies: If at any time you feel your situation is an emergency, please call 911 immediately. . Non-Emergent Contact Non-Emergency issues call your: Primary Care Provider . . "Provider Documentation" section prepared by Ej Blackmon. VTE Core Measure Inpt VTE Proph given/why not?: Enoxaparin (Lovenox)SQ
--- NOTE | 2016-05-06 10:05 | Discharge Summary ---
Discharge Summary Admission Date: May 04, 2016 at 08:52 Discharge Date: May 06, 2016 Discharge Disposition: Home Principal Diagnosis: Chest Pain s/p Cardiac Cath - Mild CAD Chronic Back Pain Anxiety Medication Reconciliation New Medications: Atorvastatin (Lipitor) 20 Mg Tab 1 TAB PO DAILY for 90 Days, #90 TAB 3 Refills Lisinopril (Lisinopril) 5 Mg Tab 5 MG PO DAILY for 30 Days, #30 TABS Continued Medications: Albuterol (Ventolin Hfa) 60 Puffs/5400 Mcg Aers 2 PUFFS INH QID PRN for Shortness of Breath Aspirin (Aspirin Ec) 81 Mg Tab 81 MG PO DAILY Insulin Aspart (Novolog) 100 Units/Ml Inj UNITS SQ AC PRN for HYPERGLYCEMIA SLIDING SCALE: UP TO 100 UNITS Insulin Glargine (Toujeo Solostar) 300 Unit/Ml Inj 160 UNITS depending on day before numbers Lubiprostone (Amitiza) 24 Mcg Cap 24 MCG PO DAILY PRN for Constipation, 5 Refills Metoprolol Succ (Toprol Xl) (Toprol-Xl) 25 Mg Tabcr 12.5 MG PO DAILY, #30 TAB Morphine Sulfate (Ms Contin) 100 Mg Tabcr 100 MG PO BID, 0 Refills AT 9AM AND 3PM Morphine Sulfate Ir (Morphine Sulfate Ir) 15 Mg Tab 15 MG PO UD PRN for Pain NEEDED FOR BREAKTHROUGH PAIN Morphine Sulfate (Morphine Sulfate ER) 30 Mg Tabcr 30 MG PO Q12 04/28/16 patient has taken 215mg morphine today Nicotine (Nicotine) 1 Patch Tdsy 21 MG TD DAILY Nitroglycerin (Nitrostat) 0.4 Mg Tab 0.4 MG PO UD PRN for Chest Pain Oxygen (Oxygen) Gas 2 LITER NA HS VIA CPAP Pantoprazole (Protonix) 40 Mg Tab 40 MG PO DAILY PRN for Indigestion Testosterone (Androgel Pump) 1.62 % Gel 1 APPLN TOP DAILY, 5 Refills 1 pump daily on skin- sometimes Q0D for blood disorder [C-Pap] () 10 PRESSURE 10 ALONG WITH OXYGEN AT NIGHT Discontinued Medications: Sildenafil Citrate (Viagra) 100 Mg Tab 100 MG PO PRN, TAB Admission Information HPI (per Admitting provider): Patient seen and examined. 55 year old male with PMHx of IDDM, AR, BPH, secondary polycythemia, HLD, Asthma, tobacco abuse and HTN presents to the ED complaining of chest pain prior to arrival. Patient has been having chest pain off and on for several weeks that has been worsening in intensity. He came to the ED last week and was discharged home after negative cardiac workup. He followed up with Cardiology and is schedule for a left heart cath next week. He states this morning around 3:00 he woke up with severe chest pressure that felt like he had a 50 pound weight on his chest. He rates the pain as a 9/10. He reports that it radiated to the neck and down the left arm. He reports associated SOB, chills, nausea and dizziness. He states he took nitro which alleviated the pain but the pain returned within a half hour. He took a second nitro which again alleviated the pain and then came to the ED. He states that he was recently started on Metoprolol Succinate which he states helps but seems to only last half a day. In the ED VS are stable, CXR is negative, EKG shows no new changes, Álvaro are negative x 1. Patient received nitro paste and Aspirin and is resting comfortably. He will be observed for further workup and treatment. Physical Exam (per Admitting): General Appearance: + pertinent finding (Pleasant WD/WN 55 year old male lying in bed in NAD ) Head: normocephalic, atraumatic Eyes: PERRL, EOMI, sclerae normal ENT: hearing grossly normal, pharynx normal Neck: supple, no JVD, trachea midline Respiratory/Chest: chest non-tender, lungs clear, normal breath sounds, no respiratory distress, no accessory muscle use Cardiovascular: regular rate, rhythm, no edema, no gallop, no JVD, no murmur , normal peripheral pulses Abdomen/GI: normal bowel sounds, non tender, soft (obese) Back: normal inspection, no muscle spasm Extremities/Musculoskelatal: no calf tenderness, normal capillary refill, no pedal edema Neurologic/Psych: alert, oriented x 3, + pertinent finding (no motor or sensory deficits noted on gross exam ) Skin: normal color, warm/dry, no rash Lymphatic: no adenopathy Hospital Course 55 year old male presents to the ED with worsening chest pain. He has been having chest pain for several weeks and is scheduled for a heart cath next week CHEST PAIN R/O ACS 05/06 * Cardiac cath performed yesterday * Mild CAD * Continue b-judit. Will need to add BELGICA-I due to DM2 * Start statin 05/05 * s/p diagnostic cardiac cath today * mild CAD, no PCI * medical management as per cardiology * will avoid narcotics when possible * wean patient back to home medications as per pain management -Observation in tele -First set of CE negative in ED -Risk factors: Tobacco abuse, IDDM, HTN, HLD, obesity -Serial Álvaro and EKGs -Fasting lipid panel in AM -continue Aspirin and BB daily -nitropaste 1 inch q6h -Cardiology consult for further management input appreciated -defer to cardiology for repeat echo -will keep npo until seen by cardiology -TSH, Mg pending -CBC, PRP, Mg daily -VSS stable, monitor in tele -Had repeat chest pain in ED, EKG repeated, medicated with 2mg IV morphine x 1 dose, [place] prescription drug [place]. IDDM 05/05 * Ha1c = 9.3% * uncontrolled, largely due to noncompliance with diabetic diet -check A1c -is on a very large amount of insulin as outpatient -SSI coverage -Lantus 50 U BID -pharmacy consulted for glycemic control HTN -slightly high -continue BB -add nitro paste -monitor in tele HLD -per chart -check lipid panel AR -continue CPAP ASTHMA -stable -continue nebs, inhalers TOBACCO ABUSE -Cessation counseling given -Nicotine patch ordered GERD -continue PPI CHRONIC BACK PAIN -patient is very particular about pain regimen -continue outpatient pain regimen SECONDARY POLYCYTHEMIA -has monthly phlebotomy -H&H stable -monitor DVT PROPHYLAXIS: Sq Lovenox CODE STATUS: FULL CODE DISPO:observation pending further workup Total time spent on discharge = 35 minutes This includes examination of the patient, discharge planning, medication reconciliation, and communication with other providers. Discharge Instructions Please follow-up with Dr. Sampson on May 11 @ 11:10AM * You will be started on Lipitor 20mg daily * Please take lisinopril 5mg daily * All other medications will remain the same
[2016-05-06] MEDS ORDERED: INSU1.2I INJ (11:51)
[2016-05-06] MEDS ORDERED: NVLG INJ (11:51)
[2016-05-06] MEDS ORDERED: SILD100T PO (11:54)
[2016-05-06] MEDS ORDERED: LISI-729 PO (11:54)
[2016-05-06] MEDS ORDERED: CHOL2000 PO (11:55)
[2016-05-07] MEDS ORDERED: ATORVASTATIN 20 MG TAB PO SCH (09:00)
[2016-07-05] MEDS ORDERED: HYDR4TAB78 PO (08:52)
== END 2016-05-06 12:35 | disposition home or self-care (01) ==
LOC: ENRESERVTM → ENRESERVDT → C.EDB 07:31 → C.2T 08:52
PROVIDERS: ADMIT Family Medicine; ATTEND Family Medicine
DX: I25.10 Atherosclerotic heart disease of native coronary artery without angina pectoris (principal); J45.909 Unspecified asthma, uncomplicated; N40.0 Benign prostatic hyperplasia without lower urinary tract symptoms; I10 Essential (primary) hypertension; E78.5 Hyperlipidemia, unspecified; G47.33 Obstructive sleep apnea (adult) (pediatric); E11.9 Type 2 diabetes mellitus without complications; F17.210 Nicotine dependence, cigarettes, uncomplicated; D75.1 Secondary polycythemia; E29.1 Testicular hypofunction; E66.9 Obesity, unspecified; M54.9 Dorsalgia, unspecified; K21.9 Gastro-esophageal reflux disease without esophagitis; Z91.11 Patient's noncompliance with dietary regimen; Z79.4 Long term (current) use of insulin; Z99.81 Dependence on supplemental oxygen; Z79.82 Long term (current) use of aspirin; Z90.49 Acquired absence of other specified parts of digestive tract; Z82.49 Family history of ischemic heart disease and other diseases of the circulatory system; Z83.3 Family history of diabetes mellitus

== ENCOUNTER 2016-05-30 05:42 | Inpatient (IN) | payer BC, OTHER ==
[2016-05-06 11:56] VITALS: BMI 38.0
--- NOTE | 2016-05-06 12:46 | PAT Medication Instructions ---
Service Date May 06, 2016. Current Home Medication List Albuterol (Ventolin Hfa), 2 PUFFS INH QID PRN for Shortness of Breath Aspirin (Aspirin Ec), 81 MG PO QAM Atorvastatin (Lipitor), 20 MG PO DAILY Cholecalciferol (Vitamin D3), 1 CAP PO QAM Insulin Aspart (Novolog), INJ SLIDING SCALE Insulin Glargine (Toujeo Solostar), 160 UNITS INJ QAM Lisinopril (Prinivil), 5 MG PO QAM Lubiprostone (Amitiza), 24 MCG PO DAILY PRN for Constipation Metoprolol Succ (Toprol Xl) (Toprol-Xl), 12.5 MG PO QPM Morphine Sulfate (Ms Contin), 100 MG PO BID Morphine Sulfate (Morphine Sulfate ER), 30 MG PO Q12 Morphine Sulfate Ir (Morphine Sulfate Ir), 15 MG PO UD PRN for Pain Nicotine (Nicotine), 21 MG TD DAILY Nitroglycerin (Nitrostat), 0.4 MG PO UD PRN for Chest Pain Oxygen (Oxygen), 2 LITER NA HS Pantoprazole (Protonix), 40 MG PO DAILY PRN for Indigestion Sildenafil Citrate (Viagra), 100 MG PO PRN Testosterone (Androgel Pump), 1 APPLN TOP DAILY Medication Instructions For Your Scheduled Surgery - Continue as directed: Nitroglycerin (Nitrostat), 0.4 MG PO UD PRN for Chest Pain Nicotine (Nicotine), 21 MG TD DAILY - Hold the following medications the morning of surgery: Cholecalciferol (Vitamin D3), 1 CAP PO QAM Lisinopril (Prinivil), 5 MG PO QAM Insulin Aspart (Novolog), INJ SLIDING SCALE Sildenafil Citrate (Viagra), 100 MG PO PRN Lubiprostone (Amitiza), 24 MCG PO DAILY PRN for Constipation - Take the following medications the morning of surgery with a sip of water OTHERWISE NOTHING TO EAT OR DRINK AFTER MIDNIGHT: Aspirin (Aspirin Ec), 81 MG PO QAM Atorvastatin (Lipitor), 20 MG PO DAILY Insulin Glargine (Toujeo Solostar), 160 UNITS INJ QAM Pantoprazole (Protonix), 40 MG PO DAILY PRN for Indigestion Morphine Sulfate (Ms Contin), 100 MG PO BID (may take up to 4 hours prior to surgery) Morphine Sulfate (Morphine Sulfate ER), 30 MG PO Q12 (may take up to 4 hours prior to surgery) Morphine Sulfate Ir (Morphine Sulfate Ir), 15 MG PO UD PRN for Pain (may take up to 4 hours prior to surgery) Albuterol (Ventolin Hfa), 2 PUFFS INH QID PRN for Shortness of Breath (use if needed; BRING TO HOSPITAL) - Take the following medications as scheduled the night before surgery: Metoprolol Succ (Toprol Xl) (Toprol-Xl), 12.5 MG PO QPM Insulin Aspart (Novolog), INJ SLIDING SCALE Testosterone (Androgel Pump), 1 APPLN TOP DAILY Lubiprostone (Amitiza), 24 MCG PO DAILY PRN for Constipation Albuterol (Ventolin Hfa), 2 PUFFS INH QID PRN for Shortness of Breath If you have any questions please call us at [phone] (Divya Guzman PA-C ) or [phone] or [phone]
[2016-05-06 13:16] LABS: URINE APPEARANCE CLEAR (CLEAR); URINE BILIRUBIN NEG (NEG); URINE COLOR YELLOW; URINE NITRITE NEG (NEG); URINE PH 6.5 (4.5-7.5); URINE SPECIFIC GRAVITY 1.003 (1.000-1.030); UROBILINOGEN NEG (NEG)
[2016-05-06 13:24] LABS: MANUAL MICROSCOPIC REQUIRED? NO; REVIEW REQ? NO
--- NOTE | 2016-05-26 09:12 | HISTORY & PHYSICAL EXAMINATION ---
DATE OF ADMISSION: 05/30/2016 HISTORY OF PRESENT ILLNESS: The patient is well known to our practice. He presents, complaining of lower back pain as well as bilateral buttock pain. He has some rib and chest pain as well. It is reproduced with standing and walking as well as carrying objects. He is on chronic narcotics, managed by pain management center. Currently taking MS Contin 200 mg in the morning and 60 mg in the afternoon plus morphine IR for breakthrough pain, 15 mg. He denies bowel or bladder dysfunction. Denies gait instability. PAST MEDICAL HISTORY: The patient's medical history is significant for hypertension, fibromyalgia, arthritis, BPH, asthma, GERD. PAST SURGICAL HISTORY: Significant for appendectomy, elbow arthroscopy, shoulder arthroscopy, tonsillectomy, multiple back surgeries x5. ALLERGIES: INCLUDE BIAXIN. CURRENT MEDICATIONS: Include ProAir 2 puffs every 6 hours as needed, Lantus insulin 50 units daily, NovoLog insulin 10 units with each meal, AndroGel pump, Flomax 0.4 mg a day, Protonix 40 mg a day, Ambien 10 mg before bedtime as needed, Viagra 100 mg as needed, Levitra 20 mg as needed, Amitiza 24 mcg twice a day, lisinopril 10 mg a day, vitamin D, MS Contin 30 mg every 12 hours 1-2 tabs, home oxygen 2-1/2 liters, MS Contin 100 mg tabs, morphine sulfate 15 mg 1 pill up to twice a day as needed for breakthrough pain. SOCIAL HISTORY: He is single, 2 children. Denies alcohol. Denies tobacco, is on disability. FAMILY HISTORY: Noncontributory. REVIEW OF SYSTEMS: Significant for fatigue, night sweats, weakness, skin lesions, nasal congestion, nausea, constipation, muscle weakness, difficulty walking, urge incontinence. PHYSICAL EXAMINATION: VITAL SIGNS: 5 feet 7 inches, 130 pounds. HEENT: Speech appropriate. CARDIOPULMONARY: No gross abnormalities. ABDOMEN: Soft, nontender. GENITOURINARY: Deferred. NEUROLOGIC: Cranial nerves II-XII grossly intact. MUSCULOSKELETAL: Ambulates with a stoop but steady gait. Strength is intact in bilateral lower extremities. Neurovascularly intact. No evidence of ankle clonus. ASSESSMENT: Adjacent level lumbar stenosis of L4-L5. PLAN: At this point in time, we had a lengthy discussion regarding his clinical findings as well as MRI. We have decided to pursue lumbar decompression with instrumented fusion of L4-L5. Risks, benefits, pros, cons, and alternatives were outlined in detail. He understands we will need consultation with in-house pain management, may require ICU postoperatively.
[~2016-05-30] VITALS: Ht 170.2 cm; Wt 112.3 kg
[2016-05-30] VITALS (10 sets, daily range): BP systolic 126–185; BP diastolic 61–120; PULSE 74–100; TEMP 36.3–36.8; O2SAT 93–99; BMI 38.0
[~2016-05-30 05:42] MED LIST changes: -ALBUAER2 INH; +ASPI81TA28 PO; +ATOR-54 PO; -CETI10TA84 PO; +CHOL2000 PO; -FSTTS; -INSU1.2I; +INSU1.2I INJ; -INSUINJ14 SQ; +LISI-729 PO; +METO25TA3 PO; +NCDT14 TD; +NVLG INJ; +PRVHFAIN INH; +SILD100T PO; -VGRUNK PO
[2016-05-30] MEDS ORDERED: LACTATED RINGER'S 1000ML 1,000 ML IV SCH (06:00)
[2016-05-30] MEDS ORDERED: CEFAZOLIN 2000 MG/60 ML D5W 60 ML IV SCH (06:00)
[2016-05-30] MEDS ORDERED: CERTIZINE (06:37)
[2016-05-30] MEDS ORDERED: CERTIZINE PO (06:38)
[2016-05-30] MEDS ORDERED: NEOSTIGMINE METHYLSULFATE 1 MG/ML 10ML VIAL ONE (06:45)
[2016-05-30] MEDS ORDERED: GLYCOPYRROLATE INJ 0.2 MG/ML VIAL ONE (06:45)
[2016-05-30] MEDS ORDERED: ONDANSETRON INJ 2 MG/ML 2 ML VIAL ONE (06:45)
[2016-05-30] MEDS ORDERED: PROPOFOL IV EMULSION 10 MG/ML 20 ML VIAL IV ONE (06:45)
[2016-05-30] MEDS ORDERED: ROCURONIUM BROMIDE 10 MG/ML 5 ML VIAL ONE ×2 (06:45→08:26)
[2016-05-30] MEDS ORDERED: HYDROmorphone INJ 2 MG/ML SYR/VIAL ONE ×5 (06:45→11:32)
[2016-05-30] MEDS ORDERED: DEXAMETHASONE SOD INJ 4 MG/ML VIAL ONE (06:45)
[2016-05-30] MEDS ORDERED: MIDAZOLAM HCL 1 MG/ML 2ML VIAL ONE (06:45)
[2016-05-30] MEDS ORDERED: FENTANYL CITRATE INJ 50 MCG/1 ML 2 ML VIAL ONE ×2 (06:45→09:47)
[2016-05-30] MEDS ORDERED: KETAMINE HCL INJ 50 MG/ML 10 ML VIAL ONE (07:01)
[2016-05-30] MEDS ORDERED: SODIUM CHLORIDE 0.9% PF 50 ML VIAL ONE (07:10)
[2016-05-30] MEDS ORDERED: BUPIVACAINE/EPINEPHRINE 0.5% MPF 1:200,000 30 ML VIAL ONE (07:10)
[2016-05-30] MEDS ORDERED: BACITRACIN 50000 UNIT VIAL ONE (07:10)
[2016-05-30] MEDS ORDERED: EpHEDrine SULFATE INJ 50 MG/ML AMP IV PRN (07:15)
[2016-05-30] MEDS ORDERED: ONDANSETRON INJ 2 MG/ML 2 ML VIAL IV PRN ×2 (07:15→09:45)
[2016-05-30] MEDS ORDERED: HYDROmorphone INJ 1 MG/ML SYR IV PRN (07:15)
[2016-05-30] MEDS ORDERED: ATROPINE SULFATE 0.1 MG/ML 5ML SYR IV PRN (07:15)
--- NOTE | 2016-05-30 07:19 | History & Physical Bridge Note ---
H&P Re-Evaluation Bridge Note: I have examined the patient, reviewed the History & Physical and in the interval since the performance of the History & Physical I have noted the following changes of clinical significance: No changes noted
[2016-05-30] MEDS ORDERED: ACETAMINOPHEN 1000 MG/100 ML IV IV ONE (08:03)
[2016-05-30] MEDS ORDERED: DexMEDEtomidine HCL 100 MCG/ML 2ML VIAL IV ONE (08:03)
[2016-05-30] MEDS ORDERED: METOPROLOL TARTRATE 1 MG/ML VIAL ONE (08:42)
[2016-05-30] MEDS ORDERED: SUCCINYLCHOLINE CHLORIDE 20 MG/ML 10 ML VIAL IV ONE (08:42)
[2016-05-30] MEDS ORDERED: FLOSEAL HEMOSTATIC MATRIX 10ML TOP ONE (09:34)
--- NOTE | 2016-05-30 09:40 | [facility] Post Operative Brief Note ---
Immediate Operative Summary Operative Date May 30, 2016. Pre-Operative Diagnosis Adjacent level lumbar stenosis L4-L5 Post-Operative Diagnosis same as preop Procedure(s) Performed L4-L5 Decompression, posterior instrumented fusion, application of interbody cage, use of bone morphogenetic protein and Rae allograft Surgeon Dr. Germain Lay Out Maker Surgeon(s) Richa Trinidad PA-C Estimated Blood Loss 100 ml Findings stenosis/spondy Specimens none
[2016-05-30] MEDS ORDERED: SODIUM CHLORIDE 0.9% 1000ML 1,000 ML IV SCH (09:41)
[2016-05-30] MEDS ORDERED: hydrOXYzine HCL 25 MG TAB PO PRN (09:45)
[2016-05-30] MEDS ORDERED: BISACODYL 10 MG SUPP PR PRN (09:45)
[2016-05-30] MEDS ORDERED: MAGNESIUM HYDROXIDE SUSP 30 ML UDC PO PRN (09:45)
[2016-05-30] MEDS ORDERED: ACETAMINOPHEN IV 100 ML IV PRN (09:45)
[2016-05-30] MEDS ORDERED: FAMOTIDINE 20 MG TAB PO PRN (09:45)
[2016-05-30] MEDS ORDERED: PANTOprazole SOD 40 MG TAB PO PRN (09:45)
[2016-05-30] MEDS ORDERED: ACETAMINOPHEN 500 MG TAB PO PRN (09:45)
[2016-05-30] MEDS ORDERED: DO NOT ADMINISTER FLU VACCINE PRN ×3 (09:45)
[2016-05-30] MEDS ORDERED: SOD PHOSPHATE/SOD BIPHOSPHATE ENEMA 132 ML BTL PR PRN (09:45)
[2016-05-30] MEDS ORDERED: LORAZEPAM INJ 0.5 MG in SYRINGE 0.75 ML IV PRN (09:45)
[2016-05-30] MEDS ORDERED: METOCLOPRAMIDE HCL INJ 5 MG/ML 2 ML VIAL IV PRN (09:45)
[2016-05-30] MEDS ORDERED: MoRPHine SULFATE IR 15 MG TAB (IMMEDIATE RELEASE) PO PRN (09:45)
[2016-05-30] MEDS ORDERED: DO NOT ADMINISTER PNEUMOCOCCAL VACCINE PRN ×2 (09:45)
[2016-05-30] MEDS ORDERED: ALBUTEROL HFA 8 GM INHALER INH PRN (09:45)
[2016-05-30] MEDS ORDERED: NITROGLYCERIN 0.4 MG SL PER TAB CHARGE UT PRN (09:45)
[2016-05-30] MEDS ORDERED: ALUMINUM/MAGNESIUM SUSP 30 ML UDC PO PRN (09:45)
[2016-05-30] MEDS ORDERED: NALOXONE HCL 0.4 MG/1 ML VIAL/CARP IV PRN ×2 (09:45)
[2016-05-30] MEDS ORDERED: PROMETHAZINE HCL INJ 12.5 MG in SODIUM CHLORIDE 0.9% 50ML 50 ML IV PRN (09:45)
--- NOTE | 2016-05-30 10:11 | DIAGNOSTIC IMAGING REPORT ---
INTRAOPERATIVE FLUOROSCOPIC IMAGES OF THE LUMBAR SPINE CLINICAL HISTORY: L4-L5 laminectomy and decompression. COMPARISON STUDY: Lumbar spine fluoroscopic images September 21, 2005. Fluoroscopy time: 14 seconds. FINDINGS: 2 fluoroscopic images demonstrate an interval L4-L5 discectomy with interbody spacer placement. There is a posterior decompression with bilateral pedicle screws at the L4 and L5 levels. There are interconnecting rods. A previous L5-S1 discectomy with spacer placement as noted. IMPRESSION: Expected findings following interval L4-5 discectomy and bilateral pedicle screw fusion. Electronically signed by: Corbin Iyer M.D. 05/30/2016 10:10 AM Dictated Date/Time: 05/30/2016 10:08 AM
--- NOTE | 2016-05-30 10:14 | OPERATIVE REPORT ---
DATE OF OPERATION: 05/30/2016 PREOPERATIVE DIAGNOSES: Spinal stenosis, spondylolisthesis. POSTOPERATIVE DIAGNOSIS: Same. PROCEDURE PERFORMED: 1. Exploration of fusion L5-S1. 2. Lumbar decompression, medial facetectomies, foraminotomies L3-4, L4-5. 3. Posterior spinal fusion L4-L5. 4. Placement of posterior instrumentation using Orthros rods and screws L4-L5. 5. Interbody fusion L4-L5. 6. Placement of PEEK cage 14 x 26 mm at L4-L5. 7. Placement of locally harvested morcellized autograft in posterior lateral gutters. 8. Placement of Infuse collagen sponge combined with Mastergraft in the posterior lateral gutters and Rae bone grafting in the interbody space. SURGEON: Dr. Yves Germain. TRACK MOVING MACHINE OPERATOR: MIR Long. ANESTHESIA: General. DISPOSITION: The patient awakened and taken to PACU in stable condition. HISTORY OF PATIENT'S PROBLEMS: This is a 55-year-old male who is well known to me that presents with above-mentioned diagnosis. After failing an extensive course of nonoperative care, elected to undergo the above-mentioned procedure. Risks, benefits, pros, cons, and alternatives were outlined in detail preoperatively. PROCEDURE: The patient was met preoperatively, case discussed and all questions were addressed. At that point the patient was taken back to operative suite and after undergoing successful general intubation by the department of anesthesia was placed in the prone position on Chaparro table atop Gerardo frame. All bony prominences were well padded and the eyes were inspected to ensure there was no external pressure placed upon them. At this point, the lumbar spine was prepped and draped in normal sterile fashion. Sharp dissection with the assistance of Bovie cautery was performed down to and exposing the lamina and transverse processes of L4-L5, as well as the fusion mass in the posterolateral 5-S1 levels. We explored the fusion mass and it was grossly intact and no motion appreciated. I then performed a complete laminectomy of 4, partial laminectomy of L3, addressing severe lateral recess and foraminal disease. This included medial facetectomies at the 3-4 level. After complete decompression, pedicle screws were then placed in L4-L5 bilaterally with the assistance of fluoroscopy and through a transforaminal approach on the right, a complete discectomy of L4-5 was performed, endplates curetted to subcortical bleeding bone and a 14 x 26 mm PEEK cage filled with Rae bone grafting tapped into position. The rods were then compressed, locked into final position bilaterally and transverse processes of 4-5 burred to subcortical bleeding bone. Infuse collagen sponge combined with Mastergraft and locally harvested morselized autograft was placed in the posterior lateral gutters. A 7 flat HANNAH drain was inserted. Incision was closed with 1-0 Vicryl in the fascia, 2-0 Vicryl subcutaneously, 4-0 Monocryl for final skin closure. Steri-Strips and sterile dressing placed. The patient was awakened and taken to PACU in stable condition. Due to the complex nature of the procedure, the entire surgery was performed with the operational assistance of MIR Long. The geological survey field assistant, under direct supervision, was involved in the actual performance of all aspects of the surgical procedure including hemostasis, tissue retraction and incision, instrument management, patient positioning, and wound closure. I attest to the content of the Intraoperative Record and any orders documented therein. Any exceptio ns are noted below.
[2016-05-30] MEDS ORDERED: PHARMACY GLYCEMIC MGMT CONSULT PRN (10:15)
[2016-05-30] MEDS: HYDROmorphone HCL 0.5MG/ML 50 ML CASSETTE IV PRN ×6 (10:25→23:11)
[2016-05-30] MEDS ORDERED: GLUCOSE 10 TABS/TUBE PO PRN ×2 (10:30→14:00)
[2016-05-30] MEDS ORDERED: DEXTROSE 50% 50 ML SYR IV PRN ×2 (10:30→14:00)
[2016-05-30] MEDS ORDERED: GLUCOSE 40% GEL 15 GM TUBE PO PRN ×2 (10:30→14:00)
[2016-05-30] MEDS: FENTANYL CITRATE INJ 50 MCG/1 ML 2 ML VIAL IV PRN ×4 (10:30→10:47)
[2016-05-30] MEDS ORDERED: GLUCAGON FOR INJ 1 MG VIAL SQ PRN ×2 (10:30→14:00)
[2016-05-30] MEDS ORDERED: NURSING VERBAL MED ORDER ONE ×4 (11:00→13:00)
--- NOTE | 2016-05-30 11:59 | Anesthesiology Progress Note ---
Anesthesia Post Op Note Date & Time May 30, 2016 at 11:55 Vital Signs Pain Intensity: 10.0 Vital Signs Past 12 Hours Date Time Temp Pulse Resp B/P Pulse Ox O2 Delivery O2 Flow Rate FiO2 05/30/16 11:35 77 16 125/60 97 Nasal Cannula 4 05/30/16 11:25 78 16 122/60 97 Nasal Cannula 4 05/30/16 11:15 77 16 160/78 96 Nasal Cannula 4 05/30/16 11:05 77 16 103/50 93 Nasal Cannula 4 05/30/16 10:55 79 16 103/68 95 Nasal Cannula 4 05/30/16 10:45 36.4 85 16 145/59 98 Nasal Cannula 4 05/30/16 10:35 79 16 113/73 98 Nasal Cannula 4 05/30/16 10:25 76 16 105/58 96 Mask 10 05/30/16 10:15 74 16 118/58 96 Nasal Cannula 15 05/30/16 10:06 36.6 75 16 119/58 93 Mask 15 05/30/16 06:16 36.8 99 16 139/80 97 Room Air Notes Mental Status: alert / awake / arousable, participated in evaluation Pt Amnestic to Procedure: Yes Nausea / Vomiting: adequately controlled Pain: adequately controlled Airway Patency, RR, SpO2: stable & adequate BP & HR: stable & adequate Hydration State: stable & adequate Anesthetic Complications: no major complications apparent High narcotic tolerance and expectations for post op pain were discussed preop. Patient relayed intolerance for lyrica and neurontin preop. Case was managed with multimodal pain control including ketamine bolus dose prior to incision, IV acetaminophen, dexmedetomadine infusion, short and long acting narcotics. Respiratory rate was well controlled in teens at the time of emergence from anesthesia. In PACU, patient reported poor pain control and requested narcotic. Total of 200mcg fentanyl, 10mg of Dilaudid, 1mg of Ativan, and his concurrent DIRECTOR OF MANUFACTURING were given. Still 10/10 pain, but pain "getting better" after these meds. Dr Germain aware of extremely high narcotic tolerance and has consulted pain management for assistance with his post op medication regimen. Given his AR and high narcotic requirements, will order pulse oxymetry overnight tonight.
[2016-05-30] MEDS ORDERED: INSULIN GLARGINE SOLOSTAR 100 UNITS/ML 3 ML PEN SC SCH ×2 (12:00→21:00)
[2016-05-30] MEDS: LACTATED RINGER'S 1000ML 1,000 ML IV SCH ×3 (12:28→21:48)
[2016-05-30] MEDS ORDERED: PHARMACY GLYCEMIC MGMT CONSULT STA (13:59)
--- NOTE | 2016-05-30 14:30 | Medical Consult ---
Consultation Date of Consultation: May 30, 2016. Attending Physician: Yves Germain D.O. Reason for Consultation: medical mgmt History of Present Illness This is a 55 y/o male with chronic back pain, Insulin-dependent DM 2, HTN, Dyslipidemia and other problems as outlined below who presents POD 0 s/p lumbar back surgery performed by Dr. Germain. Pt is currently complaining of 10/10 lumbar back pain radiating down the R leg despite pain medication. LABORATORY EQUIPMENT CLEANER was just adjusted by Dr. Germain and he feels that it is taking "the edge off" now. Pt has a history of chronic back pain on narcotic pain regimen. He takes morphine ER 100mg BID along with morphine IR 15mg PRN daily for break through pain. Patient follows with pain management in [place]. Patient has no other complaints at this time. Of note: patient was recently admitted to [facility] from -05/06 with chest pain. A cardiac catheterization was performed which revealed mild CAD and no stents were placed. Pt has not had any chest pain since that time. Pt denies fever/chills, diaphoresis, chest pain, palpitations, SOB, abd pain, N/V, bowel or bladder issues, LE edema, calf pain, lightheadedness/ dizziness. Past Medical/Surgical History Medical Problems: (1) Chest wall pain Status: Acute (2) Precordial chest pain Status: Acute (3) Substernal chest pain Status: Acute (4) Upper respiratory infection Status: Acute Family History FH: HTN (hypertension) FH: diabetes mellitus FH: heart disease Social History Smoking Status: Current Every Day Smoker (1 ppd x 20 years) Alcohol Use: none Drug Use: none Marital Status: Housing Status: lives with family Occupation Status: unemployed Allergies Coded Allergies: Uncoded Nonscreenable Allergen (Verified Allergy, Intermediate, PLASTICS: BLISTERS, 05/30/16) HAS SPECIAL CPAP MASK Adhesives (Verified Allergy, Unknown, SKIN RASH-WITH SOME TAPES, 05/30/16) Clarithromycin (Verified Allergy, Unknown, DAMAGED LIVER PER PT-REQUIRED HOSPITALIZATION, 05/30/16) PT. GOT HEPATITIS B FROM THIS MED AND REQUIRED HOSPITILIZATION-FUNCTION RESTORED PER PT Latex1 -Allergic Contact Dermititis (Unverified Allergy, Unknown, IRRITATION ON SKIN WITH CONTACT, 05/30/16) Home Medications Active Reported [Certizine] 5-10 Mg PO DAILY Vitamin D3 (Cholecalciferol) 2,000 Unit Cap 1 Cap PO QAM 90 Days Prinivil (Lisinopril) 5 Mg Tab 5 Mg PO QAM Lipitor (Atorvastatin) 20 Mg Tab 20 Mg PO DAILY NEW RX Viagra (Sildenafil Citrate) 100 Mg Tab 100 Mg PO PRN PER PT NOT TO USE TILL AFTER SURGERY Toujeo Solostar (Insulin Glargine) 300 Unit/Ml Inj 160 Units INJ QAM Novolog (Insulin Aspart) 100 Units/Ml Inj INJ SLIDING SCALE Nicotine 1 Patch Tdsy 21 Mg TD DAILY Ventolin Hfa (Albuterol) 60 Puffs/5400 Mcg Aers 2 Puffs INH QID PRN Aspirin Ec (Aspirin) 81 Mg Tab 81 Mg PO QAM Toprol-Xl (Metoprolol Succinate) 25 Mg Tabcr 12.5 Mg PO QPM Morphine Sulfate ER (Morphine Sulfate) 30 Mg Tabcr 1-2 Tabs PO QPM Nitrostat (Nitroglycerin) 0.4 Mg Tab 0.4 Mg PO UD PRN Oxygen Gas 2 Liter NA HS VIA CPAP Protonix (Pantoprazole Sodium) 40 Mg Tab 40 Mg PO DAILY PRN Amitiza (Lubiprostone) 24 Mcg Cap 24 Mcg PO DAILY PRN Androgel Pump (Testosterone) 1.62 % Gel 1 Appln TOP DAILY 1 pump daily on skin- sometimes Q0D for blood disorder Ms Contin (Morphine Sulfate) 100 Mg Tabcr 100 Mg PO BID 8AM AND 2PM Morphine Sulfate Ir (Morphine Sulfate) 15 Mg Tab 15 Mg PO UD PRN NEEDED FOR BREAKTHROUGH PAIN Current Inpatient Medications Current Inpatient Medications Medications (Trade) Dose Ordered Sig/Shivani Route Start Time Stop Time Status Last Admin Dose Admin Lactated Ringer's 1,000 ml @ 15 mls/hr Q24H IV 05/30/16 06:00 05/31/16 05:59 05/30/16 06:20 15 MLS/HR Cefazolin Sodium 60 ml @ 100 mls/hr PREOP IV 05/30/16 06:00 05/30/16 18:00 05/30/16 07:39 100 MLS/HR Dexamethasone Sodium Phosphate 6 mg/Syringe 1.5 ml @ 1 mls/min Q8H IV 05/30/16 16:00 05/31/16 08:02 Promethazine HCl/ Sodium Chloride (Phenergan Inj/ Nss 50ml) 50.5 ml @ 202 mls/hr Q6H PRN IV 05/30/16 09:45 06/29/16 09:44 Ondansetron HCl (Zofran Inj) 4 mg Q6H PRN IV 05/30/16 09:45 06/29/16 09:44 Metoclopramide HCl (Reglan Inj) 10 mg Q6H PRN IV 05/30/16 09:45 06/29/16 09:44 Lorazepam 0.5 mg 0.5 mg Q8H PRN PO 05/30/16 09:45 06/29/16 09:44 Lorazepam/Syringe (Ativan Inj/ Syringe) 1 ml @ 1 mls/min Q8H PRN IV 05/30/16 09:45 06/29/16 09:44 Pneumococcal Polysaccharide Vaccine 1 ea PRN PRN N/A 05/30/16 09:45 06/29/16 09:44 Influenza Virus Vacc Triv Types A&B 1 ea PRN PRN N/A 05/30/16 09:45 06/29/16 09:44 Polyethylene (Miralax Powder Packet) 17 gm Q6 PO 06/01/16 06:00 07/01/16 05:59 Bisacodyl (Dulcolax Supp) 10 mg DAILY PRN WV 05/30/16 09:45 06/29/16 09:44 Magnesium Hydroxide (Milk Of Magnesia Susp) 30 ml DAILY PRN PO 05/30/16 09:45 06/29/16 09:44 Hydromorphone HCl (Dilaudid Inj) 0.5-1mg prn moder... Q3H PRN IV 05/31/16 06:00 06/14/16 05:59 Oxycodone HCl 5-10mg prn moderate to sev... Q4H PRN PO 05/31/16 06:00 06/14/16 05:59 Cefazolin Sodium 2000 mg/Dextrose 60 ml @ 100 mls/hr Q8@0000,0800,1600 IV 05/30/16 16:00 05/31/16 00:35 Lactated Ringer's (Lr 1000ml) 1,000 ml @ 150 mls/hr Q6H40M IV 05/30/16 09:41 3/15/17 09:40 05/30/16 12:28 150 MLS/HR Acetaminophen 1000 mg 1,000 mg Q8H PRN PO 05/30/16 09:45 06/29/16 09:44 Acetaminophen (Ofirmev Iv) 100 ml @ 400 mls/hr Q8H PRN IV 05/30/16 09:45 06/29/16 09:44 Naloxone HCl (Narcan Inj) 0.1 mg Q5M PRN IV 05/30/16 09:45 06/29/16 09:44 Senna/Docusate Sodium (Senokot S Tab) 2 tab HS PO 05/30/16 21:00 06/29/16 20:59 Sodium Biphosphate/ Sodium Phosphate (Fleet Enema) 132 ml ONE PRN WV 05/30/16 09:45 06/29/16 09:44 Hydroxyzine HCl (Vistaril Tab) 25 mg Q8H PRN PO 05/30/16 09:45 06/29/16 09:44 Al Hydroxide/Mg Hydroxide (Maalox Susp) 30 ml Q6H PRN PO 05/30/16 09:45 06/29/16 09:44 Famotidine (Pepcid Tab) 20 mg Q12 PRN PO 05/30/16 09:45 06/29/16 09:44 Diphenhydramine HCl (Benadryl Cap) 25 mg Q6H PRN PO 05/30/16 09:45 06/29/16 09:44 Miscellaneous Information (Discontinue LABORATORY EQUIPMENT CLEANER) 1 ea TODAY@0600 N/A 05/31/16 06:00 05/31/16 06:01 Naloxone HCl (Narcan Inj) 0.1 mg Q5M PRN IV 05/30/16 09:45 05/31/16 06:00 Hydromorphone HCl 25 mg 25 mg PRN PRN IV 05/30/16 09:45 05/31/16 06:00 05/30/16 12:57 25 MG Sodium Chloride (Nss 1000ml) 1,000 ml @ 15 mls/hr Q24H IV 05/30/16 09:41 05/31/16 06:00 Albuterol (Ventolin Hfa Inhaler) 2 puffs QID PRN INH 05/30/16 09:45 06/29/16 09:44 Aspirin (Ecotrin Tab) 81 mg QAM PO 05/31/16 09:00 06/30/16 08:59 Atorvastatin Calcium (Lipitor Tab) 20 mg DAILY PO 05/31/16 09:00 06/30/16 08:59 Lisinopril (Zestril Tab) 5 mg QAM PO 05/31/16 09:00 06/30/16 08:59 Metoprolol Succinate (Toprol Xl Tab) 12.5 mg QPM PO 05/30/16 21:00 06/29/16 20:59 Morphine Sulfate (Ms Contin Tab) 100 mg BID PO 05/30/16 21:00 06/13/16 20:59 Morphine Sulfate (MoRPHine SULFATE IR TAB) 15 mg DAILY PRN PO 05/30/16 09:45 06/13/16 09:44 Nicotine (Nicoderm Cq 14MG Patch) 14 patch DAILY TD 05/31/16 09:00 06/30/16 08:59 Nitroglycerin (Nitrostat Tab) 0.4 mg UD PRN UT 05/30/16 09:45 06/29/16 09:44 Pantoprazole Sodium (Protonix Tab) 40 mg DAILY PRN PO 05/30/16 09:45 06/29/16 09:44 Miscellaneous Information (Consult Glycemic Management Pharmacy) 1 ea UD PRN N/A 05/30/16 10:15 06/29/16 10:14 Insulin Glargine (Lantus Solostar Pen) 60 unit DAILY SC 05/30/16 12:00 06/29/16 11:59 Insulin Aspart (novoLOG ASPART) SLIDING SCALE ACHS SC 05/30/16 11:00 06/29/16 10:59 Glucose (Glucose 40% Gel) 15-30 GRAMS 15 GRAMS... UD PRN PO 05/30/16 10:30 06/29/16 10:29 Glucose (Glucose Chew Tab) 4-8 Tablets 4 Tabl... UD PRN PO 05/30/16 10:30 06/29/16 10:29 Dextrose (Dextrose 50% 50ML Syringe) 25-50ML OF 50% DW IV FOR... UD PRN IV 05/30/16 10:30 06/29/16 10:29 Glucagon (Glucagon Inj) 1 mg UD PRN SQ 05/30/16 10:30 06/29/16 10:29 Review of Systems Constitutional: No chills, No fatigue, No fever, No sweats, No weakness Eyes: No worsening of vision Respiratory: No cough, No shortness of breath Cardiovascular: No chest pain, No claudication, No edema Abdomen: No constipation, No diarrhea, No nausea, No pain, No vomiting Musculoskeletal: + problem reported (back pain), No calf pain, No swelling Genitourinary - Male: No dysuria Neurologic: No weakness Psychiatric: No depression symptoms Endocrine: No fatigue Hematologic / Lymphatic: No abnormal bleeding/bruising Integumentary: No new/changing skin lesions Physical Exam Date Time Temp Pulse Resp B/P Pulse Ox O2 Delivery O2 Flow Rate FiO2 05/30/16 13:35 92 18 155/86 95 Room Air 05/30/16 13:05 36.6 100 22 185/120 99 Nasal Cannula 2.0 05/30/16 12:35 36.5 89 20 139/77 95 Nasal Cannula 2.0 05/30/16 12:05 36.8 85 16 152/74 97 Nasal Cannula 4.0 05/30/16 12:05 97 Nasal Cannula 4.0 05/30/16 12:05 97 Nasal Cannula 4.0 05/30/16 11:35 77 16 125/60 97 Nasal Cannula 4 05/30/16 11:25 78 16 122/60 97 Nasal Cannula 4 05/30/16 11:15 77 16 160/78 96 Nasal Cannula 4 05/30/16 11:05 77 16 103/50 93 Nasal Cannula 4 05/30/16 10:55 79 16 103/68 95 Nasal Cannula 4 05/30/16 10:45 36.4 85 16 145/59 98 Nasal Cannula 4 05/30/16 10:35 79 16 113/73 98 Nasal Cannula 4 05/30/16 10:25 76 16 105/58 96 Mask 10 05/30/16 10:15 74 16 118/58 96 Nasal Cannula 15 05/30/16 10:06 36.6 75 16 119/58 93 Mask 15 05/30/16 06:16 36.8 99 16 139/80 97 Room Air General Appearance: WD/WN, no apparent distress, + pertinent finding (Pt is sitting up in bed eating lunch on my arrival with at bedside) Head: normocephalic, atraumatic Eyes: normal inspection ENT: hearing grossly normal Neck: supple Respiratory/Chest: chest non-tender, lungs clear, normal breath sounds, no respiratory distress Cardiovascular: regular rate, rhythm, no edema, no murmur Abdomen/GI: normal bowel sounds, non tender, soft Back: + pertinent finding (surgical dressing in place over lumber spine ) Extremities/Musculoskelatal: no calf tenderness, no pedal edema, + pertinent finding (SCDs in place) Neurologic/Psych: alert, normal mood/affect, oriented x 3 Skin: normal color, warm/dry Laboratory Results Last 24 Hours Test 05/30/16 06:08 05/30/16 10:07 05/30/16 13:04 Bedside Glucose 142 mg/dl 166 mg/dl 231 mg/dl Assessment & Plan S/P LUMBAR DECOMPRESSION/FUSION -POD 0; surgery performed by Dr. Germain -with recent h/o cardiac catheterization; will transfer pt to telemetry overnight -pt complaining of significant post-operative pain; will defer to pain mgmt -monitor for acute blood loss with daily H&H -pt encouraged to utilize spirometry to prevent post-op infection -PT/OT -activity and wound care orders per ortho protocol -pain mgmt consulted -will continue to follow INSULIN-DEPENDENT DM 2 -recent A1C 9.3 -Lantus 50 BID -start ISS -monitor BSG AC HS -pharmacy consulted for glycemic control GERD -cont PPI HTN -BP stable -cont lisinopril and metoprolol -monitor DYSLIPIDEMIA -cont statin DVT PROPHYLAXIS -per ortho protocol CODE STATUS -FULL CODE status DISPO -per ortho. Pt seen in collaboration with Dr. Araiza. Please see her addendum for further details. Thanks! ATTENDING ADDENDUM Record reviewed. Patient interviewed and examined. I agree with the assessment and plan as stated above. Care coordinated with Faith Al PA-C. Please refer to her documentation for patient's history. Agnieszka Araiza DO Hospitalist
--- NOTE | 2016-05-30 14:42 | Pharmacy Progress Note ---
Glycemic Control Intl Consult Date of Service May 30, 2016. Scope Glycemic Pharmacist consulted by Dr Germain on 05/30/16 for glycemic control and to write orders per [facility] inpatient glycemic control protocol Objective Weight (Kilograms): 112.300 Accuchecks BSG (last 24hrs): Test 05/30/16 06:08 05/30/16 10:07 05/30/16 13:04 Bedside Glucose 142 mg/dl (70-99) 166 mg/dl (70-99) 231 mg/dl (70-99) HbA1c 9.3% on 05/05/16 Recent Pertinent Medications Outpatient Anti-diabetic Regimen: * Toujeo [insulin glargine 300units/ml] 160 units SQ QAM * NovoLog per scale Risk Factors for Insulin Resistance: * Steroids * Recent Surgery * Diet Assessment & Plan ASSESSMENT: * 55yo T2DM male with sub-adequate degree of outpatient control per recent A1c. Goal A1c should be less than 7% based on age and co-morbidities. Current A1c is 9.3% in Apr 2016. * Pt is maintained on high dose concentrated insulin glargine + NovoLog SSI as an outpatient. * Per P&T will substitute Lantus [insulin glargine U-100] for Toujeo [insulin glargine U-300] . Per the veneer supervisor the when switching from Toujeo to Lantus , the first dose of Lantus should be 80% of the Toujeo dose. * Since Pt NPO this morning for surgery will lower initial dose slightly more than 20% to prevent hypoglycemia. Will titrate dosing based on BSG trends. Pt takes basal insulin in the morning. Will give dose SKYLER once arrived to medical floor and resume QAM dosing tomorrow. * Pt ordered Dexamethasone intraoperatively and x 3 doses post-operatively. Will order aggressive CF/CR to combat steroid induced hyperglycemia. * ADA & AACE recommend a goal blood sugar range 140-180 mg/dl for the majority of critically ill & non-critically ill patients. However, more stringent targets may be selected in individual cases. Will utilize more stringent goal range of 110-140mg/dl to facilitate healing post-operatively. PLAN FOR INPATIENT GLYCEMIC CONTROL: * Basal insulin with LANTUS 60 units SQ Daily - will titrate dosing daily based on BSG trends * Correctional Insulin with NOVOLOG per scale ACHS or Q6hrs while NPO. Additional checks + coverage overnight at 0000 & 0400 for RTC steroid dosing and to cover hyperglycemia from reduced basal insulin dosing. * Goal Range: Low 110 mg/dL - High 140 mg/dL * Correction Factor: 15 mg/dL/unit * Nutritional / Prandial insulin per carb ratio of 1 unit per 5 grams CHO consumed * Please note that the plan above was derived based on current level of insulin resistance and hospital stress. These recommendations are appropriate for inpatient admission only. Plan of care upon discharge will need to be reassessed to avoid potential outpatient hypo/hyperglycemia. Thank you.
[2016-05-30] MEDS: INSULIN ASPART 100 UNITS/ML 3 ML PEN SC SCH ×3 (14:59→21:47)
[2016-05-30] MEDS: LORAZEPAM 0.5 MG TAB PO PRN ×2 (15:59→23:41)
[2016-05-30] MEDS: CEFAZOLIN IV 2,000 MG in DEXTROSE 5% 50ML 50 ML IV SCH (15:59)
[2016-05-30] MEDS: DEXAMETHASONE INJ 6 MG in SYRINGE 0 ML IV SCH (16:00)
[2016-05-30] MEDS ORDERED: INSULIN ASPART 100 UNITS/ML 3 ML PEN SC SCH (16:15)
--- NOTE | 2016-05-30 17:21 | Pain Management Consultation ---
Pain Management Consultation Date of Consultation May 30, 2016. Reason for Consultation Post operative pain management History 55 year old male with history of lumbar spinal stenosis who underwent laminectomy and fusion today. He has history of chronic opioid therapy for his symptoms prior to the surgery for 18 years. His daily maintenance dose has been total of approximately 250-280 mg of morphine. Surgery was uneventful. Intraoperatively and post operatively patient required significant amount of opioids for an analgesia. Staff reported that the patient slept in PACU but still voiced pain to be 10/10 when asked. He was reported to be ambulating in PACU without signs of pain. Review of his medication list indicates he is on his usual dose of morphine, IV hydromorphone for break through, and IV hydromorphone COMMUNICATIONS CONSULTANT. He rates his current pain as 3/10 with the use of the COMMUNICATIONS CONSULTANT. Denies any new symptoms including radicular pain. Social / Work History Alcohol Use: none Marital Status: Housing Status: lives with family Occupation: unemployed Allergies Coded Allergies: Uncoded Nonscreenable Allergen (Verified Allergy, Intermediate, PLASTICS: BLISTERS, 05/30/16) HAS SPECIAL CPAP MASK Adhesives (Verified Allergy, Unknown, SKIN RASH-WITH SOME TAPES, 05/30/16) Clarithromycin (Verified Allergy, Unknown, DAMAGED LIVER PER PT-REQUIRED HOSPITALIZATION, 05/30/16) PT. GOT HEPATITIS B FROM THIS MED AND REQUIRED HOSPITILIZATION-FUNCTION RESTORED PER PT Latex1 -Allergic Contact Dermititis (Unverified Allergy, Unknown, IRRITATION ON SKIN WITH CONTACT, 05/30/16) Medications Current Inpatient Medications Medications (Trade) Dose Ordered Sig/Shivani Route Start Time Stop Time Status Last Admin Dose Admin Lactated Ringer's 1,000 ml @ 15 mls/hr Q24H IV 05/30/16 06:00 05/31/16 05:59 05/30/16 06:20 15 MLS/HR Cefazolin Sodium 60 ml @ 100 mls/hr PREOP IV 05/30/16 06:00 05/30/16 18:00 05/30/16 07:39 100 MLS/HR Dexamethasone Sodium Phosphate 6 mg/Syringe 1.5 ml @ 1 mls/min Q8H IV 05/30/16 16:00 05/31/16 08:02 Promethazine HCl/ Sodium Chloride (Phenergan Inj/ Nss 50ml) 50.5 ml @ 202 mls/hr Q6H PRN IV 05/30/16 09:45 06/29/16 09:44 Ondansetron HCl (Zofran Inj) 4 mg Q6H PRN IV 05/30/16 09:45 06/29/16 09:44 Metoclopramide HCl (Reglan Inj) 10 mg Q6H PRN IV 05/30/16 09:45 06/29/16 09:44 Lorazepam 0.5 mg 0.5 mg Q8H PRN PO 05/30/16 09:45 06/29/16 09:44 Lorazepam/Syringe (Ativan Inj/ Syringe) 1 ml @ 1 mls/min Q8H PRN IV 05/30/16 09:45 06/29/16 09:44 Pneumococcal Polysaccharide Vaccine 1 ea PRN PRN N/A 05/30/16 09:45 06/29/16 09:44 Influenza Virus Vacc Triv Types A&B 1 ea PRN PRN N/A 05/30/16 09:45 06/29/16 09:44 Polyethylene (Miralax Powder Packet) 17 gm Q6 PO 06/01/16 06:00 07/01/16 05:59 Bisacodyl (Dulcolax Supp) 10 mg DAILY PRN DC 05/30/16 09:45 06/29/16 09:44 Magnesium Hydroxide (Milk Of Magnesia Susp) 30 ml DAILY PRN PO 05/30/16 09:45 06/29/16 09:44 Hydromorphone HCl (Dilaudid Inj) 0.5-1mg prn moder... Q3H PRN IV 05/31/16 06:00 06/14/16 05:59 Oxycodone HCl 5-10mg prn moderate to sev... Q4H PRN PO 05/31/16 06:00 06/14/16 05:59 Cefazolin Sodium 2000 mg/Dextrose 60 ml @ 100 mls/hr Q8@0000,0800,1600 IV 05/30/16 16:00 05/31/16 00:35 Lactated Ringer's (Lr 1000ml) 1,000 ml @ 150 mls/hr Q6H40M IV 05/30/16 09:41 06/29/16 09:40 05/30/16 12:28 150 MLS/HR Acetaminophen 1000 mg 1,000 mg Q8H PRN PO 05/30/16 09:45 06/29/16 09:44 Acetaminophen (Ofirmev Iv) 100 ml @ 400 mls/hr Q8H PRN IV 05/30/16 09:45 06/29/16 09:44 Naloxone HCl (Narcan Inj) 0.1 mg Q5M PRN IV 05/30/16 09:45 06/29/16 09:44 Senna/Docusate Sodium (Senokot S Tab) 2 tab HS PO 05/30/16 21:00 06/29/16 20:59 Sodium Biphosphate/ Sodium Phosphate (Fleet Enema) 132 ml ONE PRN DC 05/30/16 09:45 06/29/16 09:44 Hydroxyzine HCl (Vistaril Tab) 25 mg Q8H PRN PO 05/30/16 09:45 06/29/16 09:44 Al Hydroxide/Mg Hydroxide (Maalox Susp) 30 ml Q6H PRN PO 05/30/16 09:45 06/29/16 09:44 Famotidine (Pepcid Tab) 20 mg Q12 PRN PO 05/30/16 09:45 06/29/16 09:44 Diphenhydramine HCl (Benadryl Cap) 25 mg Q6H PRN PO 05/30/16 09:45 06/29/16 09:44 Miscellaneous Information (Discontinue COMMUNICATIONS CONSULTANT) 1 ea TODAY@0600 N/A 05/31/16 06:00 05/31/16 06:01 Naloxone HCl (Narcan Inj) 0.1 mg Q5M PRN IV 05/30/16 09:45 05/31/16 06:00 Hydromorphone HCl 25 mg 25 mg PRN PRN IV 05/30/16 09:45 05/31/16 06:00 05/30/16 15:46 25 MG Sodium Chloride (Nss 1000ml) 1,000 ml @ 15 mls/hr Q24H IV 05/30/16 09:41 05/31/16 06:00 Albuterol (Ventolin Hfa Inhaler) 2 puffs QID PRN INH 05/30/16 09:45 06/29/16 09:44 Aspirin (Ecotrin Tab) 81 mg QAM PO 05/31/16 09:00 06/30/16 08:59 Atorvastatin Calcium (Lipitor Tab) 20 mg DAILY PO 05/31/16 09:00 06/30/16 08:59 Lisinopril (Zestril Tab) 5 mg QAM PO 05/31/16 09:00 06/30/16 08:59 Metoprolol Succinate (Toprol Xl Tab) 12.5 mg QPM PO 05/30/16 21:00 06/29/16 20:59 Morphine Sulfate (Ms Contin Tab) 100 mg BID PO 05/30/16 21:00 06/13/16 20:59 Morphine Sulfate (MoRPHine SULFATE IR TAB) 15 mg DAILY PRN PO 05/30/16 09:45 06/13/16 09:44 Nitroglycerin (Nitrostat Tab) 0.4 mg UD PRN UT 05/30/16 09:45 06/29/16 09:44 Pantoprazole Sodium (Protonix Tab) 40 mg DAILY PRN PO 05/30/16 09:45 06/29/16 09:44 Miscellaneous Information (Consult Glycemic Management Pharmacy) 1 ea UD PRN N/A 05/30/16 10:15 06/29/16 10:14 Insulin Aspart (novoLOG ASPART) SLIDING SCALE ACHS SC 05/30/16 11:00 06/29/16 10:59 05/30/16 14:59 7 UNITS Glucose (Glucose 40% Gel) 15-30 GRAMS 15 GRAMS... UD PRN PO 05/30/16 10:30 06/29/16 10:29 Glucose (Glucose Chew Tab) 4-8 Tablets 4 Tabl... UD PRN PO 05/30/16 10:30 06/29/16 10:29 Dextrose (Dextrose 50% 50ML Syringe) 25-50ML OF 50% DW IV FOR... UD PRN IV 05/30/16 10:30 06/29/16 10:29 Glucagon (Glucagon Inj) 1 mg UD PRN SQ 05/30/16 10:30 06/29/16 10:29 Nicotine (Nicoderm Cq 14MG Patch) 1 patch DAILY TD 05/31/16 09:00 06/30/16 08:59 Insulin Aspart (novoLOG ASPART) SLIDING SCALE TODAY@0000,0400 SC 05/31/16 00:00 05/31/16 04:01 Insulin Glargine (Lantus Solostar Pen) 60 unit HS SC 05/30/16 21:00 06/29/16 20:59 Physical Exam Height & Weight: Height 5 feet, 7 inches. Weight 112.300 (Kilograms) 247 (Pounds) Last Vital Signs Documentation Date Time Temp Pulse Resp B/P Pulse Ox O2 Delivery O2 Flow Rate FiO2 05/30/16 15:21 36.5 81 16 93 4.0 05/30/16 15:15 139/65 Room Air Exam: Nabil Cole appears older hen his stated age. He appears deconditioned. He is A/Ox3. Is not in acute pain. L/S spine demonstrates dressing in place. He has full range of motion of his lower extremities with intact motor strength and sensory modalities. SLR and gat were not tested [place] Drug Monitoring Program Search Results: patient reviewed within database, no issues identified Opioid Risk Assessment Risk assessment performed, moderate risk identified Assessment 1. Acute post operative pain in a patient with chronic pain and opioid tolerance. 2. Opioid dependance. 3. Opioid induced hypogonadism. 4. Failed back syndrome. Recommendations 1. continue current regimen as ordered with his usual dose of morphine with hydromorphone COMMUNICATIONS CONSULTANT to cover the acute post operative pain. 2. Over next 24 hrs, recommend transitioning to oral opioids with approximately 15% increase in the total daily morphine dose for 5 to 7 days, then begin weaning by 20-25% per week. [employer] Voice Recognition This chart was completed in part utilizing [employer] Voice Recognition Software. Random word insertions, pronoun errors, and incomplete sentences are an occasional consequence of this system due to software limitations and ambient noise. Any questions or concerns about the content, text or information contained within the body of this dictation should be directly addressed to the provider for clarification.
[2016-05-30] MEDS: MORPHINE SULFATE 100 MG PO SCH (20:59)
[2016-05-30] MEDS: METOPROLOL SUCC 25MG EXT REL TAB PO SCH (21:00)
[2016-05-30] MEDS: DOCUSATE SODIUM/SENNA 50/8.6MG TAB PO SCH (21:00)
[2016-05-30] MEDS ORDERED: INSULIN GLARGINE PER SC SCH (21:00)
[2016-05-31] VITALS (10 sets, daily range): BP systolic 108–178; BP diastolic 52–75; PULSE 73–93; TEMP 36.7–37.4; O2SAT 94–98; Ht 170.2 cm; Wt 112.3 kg
[2016-05-31] MEDS: CEFAZOLIN IV 2,000 MG in DEXTROSE 5% 50ML 50 ML IV SCH (00:19)
[2016-05-31] MEDS: DEXAMETHASONE INJ 6 MG in SYRINGE 0 ML IV SCH ×2 (00:19→07:29)
[2016-05-31] MEDS: HYDROmorphone INJ 1 MG/ML SYR IV PRN ×2 (00:20→03:06)
[2016-05-31] MEDS: INSULIN ASPART 100 UNITS/ML 3 ML PEN SC SCH ×6 (01:09→21:05)
[2016-05-31] MEDS ORDERED: KETOROLAC TROMETHAMINE 30 MG/ML VIAL IV PRN (04:30)
[2016-05-31] MEDS ORDERED: DC PCA SCH (06:00)
[2016-05-31] MEDS ORDERED: HYDROmorphone INJ 0.5 MG/0.5 ML SYR IV PRN (06:00)
[2016-05-31] MEDS: LACTATED RINGER'S 1000ML 1,000 ML IV SCH ×2 (06:20→10:05)
[2016-05-31] MEDS: OXYCODONE HCL IR 5 MG TAB (IMMEDIATE RELEASE) PO PRN (06:32)
[2016-05-31] MEDS: ATORVASTATIN 20 MG TAB PO SCH (07:29)
[2016-05-31] MEDS: ASPIRIN 81 MG ECTAB PO SCH (07:30)
[2016-05-31] MEDS: LISINOPRIL 5 MG TAB PO SCH (07:30)
[2016-05-31] MEDS: NICOTINE 14 MG/24 HR TDSY TD SCH (07:31)
[2016-05-31] MEDS: LORAZEPAM 0.5 MG TAB PO PRN ×2 (07:32→16:55)
[2016-05-31] MEDS: MORPHINE SULFATE 100 MG PO SCH ×2 (07:32→17:46)
[2016-05-31 07:50] LABS: BASO ABS # 0.01 K/uL (0-0.2); COMPLETE YES; HEMATOCRIT 36.8 % (42-52); IG% 0.3 %; LYMPH % 8.2 %; LYMPH ABS # 1.87 K/uL (1.2-3.4); MEAN CELL VOLUME 78.1 fL (80-100); MEAN CORPUSCULAR HEMOGLOBIN 24.4 pg (25-34); MEAN CORPUSCULAR HGB CONC 31.3 g/dl (32-36); MEAN PLATELET VOLUME 9.1 fL (7.4-10.4); MONO % 4.2 %; NEUT % 87.3 %; PLATELET COUNT 262 K/uL (130-400); RED BLOOD COUNT 4.71 M/uL (4.7-6.1)
[2016-05-31 08:08] LABS: ESTIMATED AVERAGE GLUCOSE 197 mg/dl; HA1C FLAG Normal (Normal)
[2016-05-31 08:16] LABS: BUN/CREATININE RATIO 13.8 (10-20); CALCIUM 8.8 mg/dl (8.5-10.1); CREATININE 1.2 mg/dl (0.60-1.40); POTASSIUM 4.6 mmol/L (3.5-5.1)
[2016-05-31] MEDS: INSULIN GLARGINE SOLOSTAR 100 UNITS/ML 3 ML PEN SC SCH (08:45)
[2016-05-31] MEDS ORDERED: NICOTINE 14 MG/24 HR TDSY TD SCH (09:00)
--- NOTE | 2016-05-31 09:59 | PROGRESS NOTE ---
DATE: 05/31/2016 HISTORY OF PRESENT ILLNESS: He is postop day 1 lumbar decompression and fusion L4-5. Having some pain control issues. Dr. Munoz is managing this. No radicular leg pain. Back pain only. He is up and ambulatory around the room. HANNAH drain output put last shift was 110 mL. H\T\H this morning are 11.5 and 36.8% respectively. He does note some constipation. PHYSICAL EXAMINATION: VITAL SIGNS: Stable. Afebrile. BACK AND SPINE: Lumbar dressing is clean, dry and intact. LOWER EXTREMITIES: Calves are soft, nontender. Neurovascularly intact. ASSESSMENT: 1. Postop day 1 lumbar decompression and fusion L4-5. 2. Chronic opioid dependence. PLAN: At this point in time, we will transfer him off the tele floor up to our orthopedic floor today. Start physical therapy. DVT prophylaxis in the form of TEDs and SCDs. Pain control managements per Dr. Munoz's recommendations at this point in time.
[2016-05-31] MEDS: ANDROGEL 1.62% EXT SCH (11:15)
[2016-05-31] MEDS: MoRPHine SULFATE IR 15 MG TAB (IMMEDIATE RELEASE) PO PRN ×3 (11:24→23:49)
--- NOTE | 2016-05-31 12:27 | Pharmacy Progress Note ---
Glycemic Control: Progress Nt Date of Service May 31, 2016. Scope Glycemic Pharmacist consulted by Dr Germain on 05/30/16 for glycemic control and to write orders per [facility] inpatient glycemic control protocol. Objective Accuchecks BSG (last 24hrs): Test 05/30/16 13:04 05/30/16 16:32 05/30/16 20:52 05/31/16 00:52 Bedside Glucose 231 mg/dl (70-99) 234 mg/dl (70-99) 276 mg/dl (70-99) 297 mg/dl (70-99) Test 05/31/16 03:44 05/31/16 07:36 05/31/16 11:59 Bedside Glucose 243 mg/dl (70-99) 107 mg/dl (70-99) Random Glucose 224 mg/dl (70-99) Laboratory Data (last 24hrs) Test 05/31/16 07:36 Anion Gap 12.0 mmol/L BUN/Creatinine Ratio 13.8 Blood Urea Nitrogen 17 mg/dl Creatinine 1.20 mg/dl Hemoglobin A1c 8.5 % Potassium Level 4.6 mmol/L Sodium Level 138 mmol/L White Blood Count 22.90 K/uL Red Blood Count 4.71 M/uL Hemoglobin 11.5 g/dL Hematocrit 36.8 % Mean Corpuscular Volume 78.1 fL Mean Corpuscular Hemoglobin 24.4 pg Mean Corpuscular Hemoglobin Concent 31.3 g/dl Platelet Count 262 K/uL Mean Platelet Volume 9.1 fL Neutrophils (%) (Auto) 87.3 % Lymphocytes (%) (Auto) 8.2 % Monocytes (%) (Auto) 4.2 % Eosinophils (%) (Auto) 0.0 % Basophils (%) (Auto) 0.0 % Neutrophils # (Auto) 19.98 K/uL Lymphocytes # (Auto) 1.87 K/uL Monocytes # (Auto) 0.97 K/uL Eosinophils # (Auto) 0.00 K/uL Basophils # (Auto) 0.01 K/uL HbA1c: Test 05/31/16 07:36 Hemoglobin A1c 8.5 % (4.5-5.6) H Recent Pertinent Medications Outpatient Anti-diabetic Regimen: * Toujeo [insulin glargine 300units/ml] 160 units SQ QAM * NovoLog per scale Patient is currently receiving: * Basal Insulin Lantus 60 units SQ HS * Correctional insulin NovoLog per scale ACHS Goal Range = 110-140mg/dl CF = 15mg/dl/unit * Prandial Insulin Per carb ratio per 1 unit for every 5g CHO Risk Factors for Insulin Resistance: * Steroids * Recent Surgery * Diet Assessment & Plan ASSESSMENT: * 55yo T2DM male with sub-adequate degree of outpatient control per recent A1c. Goal A1c should be less than 7% based on age and co-morbidities. Current A1c is 9.3% in Apr 2016. * Pt is maintained on high dose concentrated insulin glargine + NovoLog SSI as an outpatient. * Per P&T substituted Lantus [insulin glargine U-100] for Toujeo [insulin glargine U-300] . First dose was decreased more aggressively than plug machine operator recommendations d/t decreased PO intake with surgery. * Pt ordered Dexamethasone intraoperatively and x 3 doses post-operatively. Will order aggressive CF/CR to combat steroid induced hyperglycemia. * Pt has received 124 units of insulin over the past 24hrs with sub-adequate glycemic control * Ordered basal insulin to start immediately post op but patient refused dose. Basal insulin did not start until bedtime * BSGs [phone] over the past 24hrs * Will increase insulin regimen accordingly. * BSG below goal range prior to lunch @ 107mg/dl. Will loosen CR accordingly. * ADA & AACE recommend a goal blood sugar range 140-180 mg/dl for the majority of critically ill & non-critically ill patients. However, more stringent targets may be selected in individual cases. Will utilize more stringent goal range of 110-140mg/dl to facilitate healing post-operatively. PLAN FOR INPATIENT GLYCEMIC CONTROL: * INCREASE Basal insulin with LANTUS to 75 units SQ Daily - continue to titrate dosing daily based on BSG trends * Adjust Correctional Insulin with NOVOLOG per scale ACHS or Q6hrs while NPO. Additional checks + coverage overnight at 0000 & 0400 for RTC steroid dosing and to cover hyperglycemia from reduced basal insulin dosing. * Goal Range: Low 110 mg/dL - High 140 mg/dL * Correction Factor: 20 mg/dL/unit * Nutritional / Prandial insulin per carb ratio of 1 unit per 6 grams CHO consumed * Please note that the plan above was derived based on current level of insulin resistance and hospital stress. These recommendations are appropriate for inpatient admission only. Plan of care upon discharge will need to be reassessed to avoid potential outpatient hypo/hyperglycemia. Thank you.
--- NOTE | 2016-05-31 14:58 | Pain Management Progress Note ---
Pain Management Progress Note Date of Service May 31, 2016. Subjective Patient reports increased pain last night. This morning he is ambulatory and standing upright and does not appear to be in pain. He reports that his medications were inappropriate prescribed and he was under dose as he takes 100 mg of MS Contin 2 times a day as well as 30-60 mg of MS Contin at bedtime. He has been receiving 100 mg of MS Contin twice a day only since his admission. Other than that, he reports no other complaints. Objective Vital Signs: Last Vital Signs Documentation Date Time Temp Pulse Resp B/P Pulse Ox O2 Delivery O2 Flow Rate FiO2 05/31/16 10:33 36.8 91 17 178/75 95 Room Air 05/31/16 09:42 4.0 Physical Exam: A/O. Ambulating normally in the room without any apparent pain or distress. Gait is unremarkable. Laboratory (Last CBC): 05/31/16 07:36 Red Blood Count 4.71, Mean Corpuscular Volume 78.1 L, Mean Corpuscular Hemoglobin 24.4 L, Mean Corpuscular Hemoglobin Concent 31.3 L, Mean Platelet Volume 9.1, Neutrophils (%) (Auto) 87.3, Lymphocytes (%) (Auto) 8.2, Monocytes ( %) (Auto) 4.2, Eosinophils (%) (Auto) 0.0, Basophils (%) (Auto) 0.0, Neutrophils # (Auto) 19.98 H, Lymphocytes # (Auto) 1.87, Monocytes # (Auto) 0.97 H, Eosinophils # (Auto) 0.00, Basophils # (Auto) 0.01 Assessment 1. Acute post operative pain in a patient with chronic pain and opioid tolerance. 2. Opioid dependance. 3. Opioid induced hypogonadism. 4. Failed back syndrome. Recommendations 1. Patient MS Contin was adjusted to provide him a total of 230 mg total daily dose which he was previously on prior to his admission. [facility] Voice Recognition This chart was completed in part utilizing [employer] Voice Recognition Software. Random word insertions, pronoun errors, and incomplete sentences are an occasional consequence of this system due to software limitations and ambient noise. Any questions or concerns about the content, text or information contained within the body of this dictation should be directly addressed to the provider for clarification.
[2016-05-31] MEDS ORDERED: NURSING VERBAL MED ORDER ONE ×2 (16:30→19:15)
[2016-05-31] MEDS ORDERED: LUBIPROSTONE 8 MCG CAP PO PRN (19:00)
[2016-05-31] MEDS: DOCUSATE SODIUM/SENNA 50/8.6MG TAB PO SCH (20:59)
[2016-05-31] MEDS ORDERED: MoRPHine SULFATE CR 15 MG TAB (MS CONTIN) PO SCH ×2 (21:00)
[2016-05-31] MEDS: METOPROLOL SUCC 25MG EXT REL TAB PO SCH (21:01)
--- NOTE | 2016-05-31 22:39 | Progress Note ---
Subjective Date of Service: May 31, 2016. Subjective Pt evaluation today including: conversation w/ patient, physical exam, lab review, review of studies, review of inpatient medication list Saw/examined the patient in room 384 C/O pain and how his pain medications are not correct +constipation Requesting increase in pain medications for night time Problem List Medical Problems: (1) Chest wall pain Status: Acute (2) Precordial chest pain Status: Acute (3) Substernal chest pain Status: Acute (4) Upper respiratory infection Status: Acute Review of Systems Constitutional: No chills, No fever Respiratory: No cough, No shortness of breath, No sputum Cardiac: No chest pain Abdomen: + constipation, No diarrhea, No nausea, No pain, No vomiting Musculoskeletal: + joint pain (chronic back pain) Heme: No abnormal bleeding/bruising Medications Current Inpatient Medications Medications (Trade) Dose Ordered Sig/Shivani Route Start Time Stop Time Status Last Admin Dose Admin Promethazine HCl/ Sodium Chloride (Phenergan Inj/ Nss 50ml) 50.5 ml @ 202 mls/hr Q6H PRN IV 05/30/16 09:45 06/29/16 09:44 Ondansetron HCl (Zofran Inj) 4 mg Q6H PRN IV 05/30/16 09:45 06/29/16 09:44 05/30/16 23:42 4 MG Metoclopramide HCl (Reglan Inj) 10 mg Q6H PRN IV 05/30/16 09:45 06/29/16 09:44 Lorazepam 0.5 mg 0.5 mg Q8H PRN PO 05/30/16 09:45 06/29/16 09:44 05/31/16 16:55 0.5 MG Lorazepam/Syringe (Ativan Inj/ Syringe) 1 ml @ 1 mls/min Q8H PRN IV 05/30/16 09:45 06/29/16 09:44 Pneumococcal Polysaccharide Vaccine 1 ea PRN PRN N/A 05/30/16 09:45 06/29/16 09:44 Influenza Virus Vacc Triv Types A&B 1 ea PRN PRN N/A 05/30/16 09:45 06/29/16 09:44 Polyethylene (Miralax Powder Packet) 17 gm Q6 PO 06/01/16 06:00 07/01/16 05:59 Bisacodyl (Dulcolax Supp) [address] 05/30/16 09:45 06/29/16 09:44 Magnesium Hydroxide (Milk Of Magnesia Susp) 30 ml DAILY PRN PO 05/30/16 09:45 06/29/16 09:44 Hydromorphone HCl (Dilaudid Inj) 0.5-1mg prn moder... Q3H PRN IV 05/31/16 06:00 06/14/16 05:59 Oxycodone HCl (Roxicodone Immediate Rel Tab) 5-10mg prn moderate to sev... Q4H PRN PO 05/31/16 06:00 06/14/16 05:59 05/31/16 06:32 10 MG Acetaminophen 1000 mg 1,000 mg Q8H PRN PO 05/30/16 09:45 06/29/16 09:44 Acetaminophen (Ofirmev Iv) 100 ml @ 400 mls/hr Q8H PRN IV 05/30/16 09:45 06/29/16 09:44 Naloxone HCl (Narcan Inj) 0.1 mg Q5M PRN IV 05/30/16 09:45 06/29/16 09:44 Senna/Docusate Sodium (Senokot S Tab) 2 tab HS PO 05/30/16 21:00 06/29/16 20:59 05/30/16 21:00 2 TAB Sodium Biphosphate/ Sodium Phosphate (Fleet Enema) [address] 05/30/16 09:45 06/29/16 09:44 Hydroxyzine HCl (Vistaril Tab) 25 mg Q8H PRN PO 05/30/16 09:45 06/29/16 09:44 Al Hydroxide/Mg Hydroxide (Maalox Susp) 30 ml Q6H PRN PO 05/30/16 09:45 06/29/16 09:44 Famotidine (Pepcid Tab) 20 mg Q12 PRN PO 05/30/16 09:45 06/29/16 09:44 Diphenhydramine HCl (Benadryl Cap) 25 mg Q6H PRN PO 05/30/16 09:45 06/29/16 09:44 Albuterol (Ventolin Hfa Inhaler) 2 puffs QID PRN INH 05/30/16 09:45 06/29/16 09:44 Aspirin (Ecotrin Tab) 81 mg QAM PO 05/31/16 09:00 06/30/16 08:59 05/31/16 07:30 81 MG Atorvastatin Calcium (Lipitor Tab) 20 mg DAILY PO 05/31/16 09:00 06/30/16 08:59 Lisinopril (Zestril Tab) 5 mg QAM PO 05/31/16 09:00 06/30/16 08:59 05/31/16 07:30 5 MG Metoprolol Succinate (Toprol Xl Tab) 12.5 mg QPM PO 05/30/16 21:00 06/29/16 20:59 05/31/16 21:01 12.5 MG Morphine Sulfate (Ms Contin Tab) 100 mg BID PO 05/30/16 21:00 05/31/16 23:59 05/31/16 17:46 100 MG Nitroglycerin (Nitrostat Tab) 0.4 mg UD PRN UT 05/30/16 09:45 06/29/16 09:44 Pantoprazole Sodium (Protonix Tab) 40 mg DAILY PRN PO 05/30/16 09:45 06/29/16 09:44 05/31/16 11:14 40 MG Miscellaneous Information (Consult Glycemic Management Pharmacy) 1 ea UD PRN N/A 05/30/16 10:15 06/29/16 10:14 Insulin Aspart (novoLOG ASPART) SLIDING SCALE ACHS SC 05/30/16 11:00 06/29/16 10:59 05/31/16 21:05 8 UNITS Glucose (Glucose 40% Gel) 15-30 GRAMS 15 GRAMS... UD PRN PO 05/30/16 10:30 06/29/16 10:29 Glucose (Glucose Chew Tab) 4-8 Tablets 4 Tabl... UD PRN PO 05/30/16 10:30 06/29/16 10:29 Dextrose (Dextrose 50% 50ML Syringe) 25-50ML OF 50% DW IV FOR... UD PRN IV 05/30/16 10:30 06/29/16 10:29 Glucagon (Glucagon Inj) 1 mg UD PRN SQ 05/30/16 10:30 06/29/16 10:29 Nicotine (Nicoderm Cq 14MG Patch) 1 patch DAILY TD 05/31/16 09:00 06/30/16 08:59 05/31/16 07:31 1 PATCH Hydromorphone HCl (Dilaudid Inj) 1 mg Q2H PRN IV 05/31/16 00:00 06/14/16 00:00 05/31/16 03:06 1 MG Ketorolac Tromethamine (Toradol Inj) 30 mg Q6H PRN IV 05/31/16 04:30 06/05/16 04:29 05/31/16 04:39 30 MG Insulin Glargine (Lantus Solostar Pen) 75 unit DAILY SC 05/31/16 09:00 06/30/16 08:59 05/31/16 08:45 75 UNIT Non-Formulary Medication (Non-Formulary Patient'S Own Med) 2 ea DAILY EXT 05/31/16 11:00 06/30/16 10:59 05/31/16 11:15 2 EA Morphine Sulfate (Oramorph Sr Tab) 30 mg HS PO 05/31/16 21:00 06/14/16 20:59 05/31/16 21:01 30 MG Morphine Sulfate (MoRPHine SULFATE IR TAB) 15 mg Q8H PRN PO 05/31/16 17:45 06/14/16 17:44 Morphine Sulfate (Ms Contin Tab) 100 mg BID@0800,1400 PO 06/01/16 08:00 06/15/16 07:59 Lubiprostone (Amitiza) 24 mcg DAILY PRN PO 05/31/16 19:00 06/30/16 18:59 05/31/16 21:02 24 MCG Objective Vital Signs Date Time Temp Pulse Resp B/P Pulse Ox O2 Delivery O2 Flow Rate FiO2 05/31/16 20:58 73 139/73 05/31/16 15:15 Room Air BiPAP 05/31/16 15:05 36.7 73 18 128/55 98 Room Air 05/31/16 10:33 36.8 91 17 178/75 95 Room Air 05/31/16 10:20 95 Room Air 05/31/16 09:42 36.7 92 20 98 4.0 05/31/16 09:00 Room Air 05/31/16 08:00 Room Air 05/31/16 07:26 36.7 92 20 163/52 98 Room Air 05/31/16 04:00 94 Room Air 05/31/16 03:59 37.1 90 20 150/69 98 CPAP 05/31/16 00:00 37.4 93 20 174/72 98 CPAP 05/31/16 00:00 94 Room Air Physical Exam General Appearance: + mild distress (+anxious, +pain), + obese Respiratory/Chest: lungs clear, normal breath sounds, no respiratory distress, no accessory muscle use Cardiovascular: regular rate, rhythm, no edema, no murmur Extremities: normal inspection, no pedal edema, + pertinent finding (painful ROM of back) Neurologic/Psychiatric: no motor/sensory deficits, alert, + pertinent finding ( +anxious) Laboratory Results Last 24 Hours Test 05/31/16 00:52 05/31/16 03:44 05/31/16 07:36 05/31/16 11:59 Bedside Glucose 297 mg/dl 243 mg/dl 107 mg/dl White Blood Count 22.90 K/uL Red Blood Count 4.71 M/uL Hemoglobin 11.5 g/dL Hematocrit 36.8 % Mean Corpuscular Volume 78.1 fL Mean Corpuscular Hemoglobin 24.4 pg Mean Corpuscular Hemoglobin Concent 31.3 g/dl Platelet Count 262 K/uL Mean Platelet Volume 9.1 fL Neutrophils (%) (Auto) 87.3 % Lymphocytes (%) (Auto) 8.2 % Monocytes (%) (Auto) 4.2 % Eosinophils (%) (Auto) 0.0 % Basophils (%) (Auto) 0.0 % Neutrophils # (Auto) 19.98 K/uL Lymphocytes # (Auto) 1.87 K/uL Monocytes # (Auto) 0.97 K/uL Eosinophils # (Auto) 0.00 K/uL Basophils # (Auto) 0.01 K/uL RDW Standard Deviation 47.5 fL RDW Coefficient of Variation 16.5 % Immature Granulocyte % (Auto) 0.3 % Immature Granulocyte # (Auto) 0.07 K/uL Sodium Level 138 mmol/L Potassium Level 4.6 mmol/L Chloride Level 102 mmol/L Carbon Dioxide Level 24 mmol/L Anion Gap 12.0 mmol/L Blood Urea Nitrogen 17 mg/dl Creatinine 1.20 mg/dl Est Creatinine Clear Calc Drug Dose 85.2 ml/min Estimated GFR () 79.5 Estimated GFR (Non- 68.6 BUN/Creatinine Ratio 13.8 Random Glucose 224 mg/dl Estimated Average Glucose 197 mg/dl Hemoglobin A1c 8.5 % Calcium Level 8.8 mg/dl Test 05/31/16 16:45 05/31/16 21:02 Bedside Glucose 153 mg/dl 281 mg/dl Assessment and Plan This is a 55 year old male with PMH of chronic back pain, chronic narcotic use and dependence, insulin dependent DM2, HTN, HLD presented for scheduled back surgery L4-L5 Decompression/Fusion Patient has chronic low back pain POD #1 for L4-L5 decompression/fusion c/o pain States he will take his own medications if he is in pain tonight I stated that this was explicitly not permissible He insists he will have pain at night and wants doses increased pain management is on board, doses being adjusted by them PT/OT as per ortho will likely need rehab/SNF Opioid Induced Constipation patient is on long-term, high doses of narcotic pain medications follows with pain management in [place] Uses Amitiza for OIC will continue this encouraged ambulation Insulin Dependent DM2 Ha1c = 8.5% not controlled BSGs are labile appreciate pharmacy glycemic control Lantus 75 units daily; insulin sliding scale continue [place]-I HTN blood pressure stable continue home medications DVT ppx as per ortho FULL CODE
[2016-06-01] MEDS: HYDROmorphone INJ 1 MG/ML SYR IV PRN ×5 (03:16→15:40)
[2016-06-01] MEDS: OXYCODONE HCL IR 5 MG TAB (IMMEDIATE RELEASE) PO PRN (04:51)
[2016-06-01] MEDS: POLYETHYLENE (MIRALAX) 17 GM PACK PO SCH ×2 (06:00→11:37)
[2016-06-01 07:00] VITALS: O2SAT 96
[2016-06-01 08:01] VITALS: BP 144/87; PULSE 75; TEMP 36.7; O2SAT 96
[2016-06-01 08:07] LABS: HEMATOCRIT 35.1 % (42-52); MEAN CELL VOLUME 78.9 fL (80-100); MEAN CORPUSCULAR HEMOGLOBIN 24.5 pg (25-34); MEAN CORPUSCULAR HGB CONC 31.1 g/dl (32-36); MEAN PLATELET VOLUME 9.5 fL (7.4-10.4); PLATELET COUNT 278 K/uL (130-400); RED BLOOD COUNT 4.45 M/uL (4.7-6.1)
[2016-06-01] MEDS: MORPHINE SULFATE 100 MG PO SCH ×2 (08:22→13:43)
[2016-06-01] MEDS: ANDROGEL 1.62% EXT SCH (08:23)
[2016-06-01] MEDS: LISINOPRIL 5 MG TAB PO SCH (08:24)
[2016-06-01] MEDS: ASPIRIN 81 MG ECTAB PO SCH (08:24)
[2016-06-01] MEDS: NICOTINE 14 MG/24 HR TDSY TD SCH (08:25)
[2016-06-01] MEDS: INSULIN GLARGINE SOLOSTAR 100 UNITS/ML 3 ML PEN SC SCH (08:32)
[2016-06-01] MEDS: ATORVASTATIN 20 MG TAB PO SCH (08:34)
[2016-06-01 08:35] VITALS: O2SAT 96
[2016-06-01 08:37] LABS: BUN/CREATININE RATIO 15.8 (10-20); CALCIUM 8.8 mg/dl (8.5-10.1); CREATININE 1.2 mg/dl (0.60-1.40); MAGNESIUM 2.2 mg/dl (1.8-2.4)
--- NOTE | 2016-06-01 09:43 | Pharmacy Progress Note ---
Glycemic Control: Progress Nt Date of Service Jun 01, 2016. Scope Glycemic Pharmacist consulted for glycemic control and to write orders per [facility] inpatient glycemic control protocol. Objective Accuchecks BSG (last 24hrs): Test 05/31/16 11:59 05/31/16 16:45 05/31/16 21:02 06/01/16 07:20 Bedside Glucose 107 mg/dl (70-99) 153 mg/dl (70-99) 281 mg/dl (70-99) Random Glucose 291 mg/dl (70-99) Test 06/01/16 07:57 Bedside Glucose 264 mg/dl (70-99) Laboratory Data (last 24hrs) Test 06/01/16 07:20 Anion Gap 9.0 mmol/L BUN/Creatinine Ratio 15.8 Blood Urea Nitrogen 19 mg/dl Creatinine 1.20 mg/dl Potassium Level 4.0 mmol/L Sodium Level 136 mmol/L White Blood Count 16.20 K/uL HbA1c: Test 05/31/16 07:36 Hemoglobin A1c 8.5 % (4.5-5.6) H Recent Pertinent Medications Outpatient Anti-diabetic Regimen: * Toujeo [insulin glargine 300units/ml] 160 units SQ QAM * NovoLog per scale Patient is currently receiving: * Basal Insulin Lantus 75 units SQ DAILY IN am * Correctional insulin NovoLog per scale ACHS Goal Range = 110-140mg/dl CF = 20mg/dl/unit * Prandial Insulin Per carb ratio per 1 unit for every 6g CHO Assessment & Plan ASSESSMENT: * 55yo T2DM male with sub-adequate degree of outpatient control per recent A1c. Goal A1c should be less than 7% based on age and co-morbidities. Current A1c is 9.3% in Apr 2016. * Pt is maintained on high dose concentrated insulin glargine + NovoLog SSI as an outpatient. * Initiated reduced outpatient dosing on admission to help prevent hypoglycmeia - typically patient's do no require full outpatient doses of aggressive basal insulin d/t controlled diet while inpatient. * BSGs starting to rise today --> will increase basal insulin and continue to titrate based on BSG trends * Pt ordered Dexamethasone intraoperatively and x 3 doses post-operatively. Hyperglycemic effects of DXM should be diminished at this point * Pt has received 127 units of insulin over the past 24hrs with sub-adequate glycemic control * [id number] over the past 24hrs * Will increase insulin regimen accordingly. * ADA & AACE recommend a goal blood sugar range 140-180 mg/dl for the majority of critically ill & non-critically ill patients. However, more stringent targets may be selected in individual cases. Will utilize more stringent goal range of 110-140mg/dl to facilitate healing post-operatively. PLAN FOR INPATIENT GLYCEMIC CONTROL: * INCREASE Basal insulin with LANTUS to 100 units SQ Daily - continue to titrate dosing daily based on BSG trends * Of note, patient uses 160 units of basal insulin as an outpatient * TIGHTEN Correctional Insulin with NOVOLOG per scale ACHS or Q6hrs while NPO. * Goal Range: Low 110 mg/dL - High 140 mg/dL * Correction Factor: 10 mg/dL/unit * Nutritional / Prandial insulin per carb ratio of 1 unit per 4 grams CHO consumed * Please note that the plan above was derived based on current level of insulin resistance and hospital stress. These recommendations are appropriate for inpatient admission only. Plan of care upon discharge will need to be reassessed to avoid potential outpatient hypo/hyperglycemia. Thank you.
[2016-06-01] MEDS ORDERED: INSULIN GLARGINE SOLOSTAR 100 UNITS/ML 3 ML PEN SC ONE (09:45)
[2016-06-01] MEDS: INSULIN ASPART 100 UNITS/ML 3 ML PEN SC SCH ×2 (09:49→13:45)
[2016-06-01] MEDS: LORAZEPAM 0.5 MG TAB PO PRN (09:50)
[2016-06-01] MEDS: MoRPHine SULFATE IR 15 MG TAB (IMMEDIATE RELEASE) PO PRN (10:50)
[2016-06-01 10:51] VITALS: BP 137/71; PULSE 92
--- NOTE | 2016-06-01 11:14 | Discharge Instructions ---
Discharge Instructions Admission Reason for Admission: Lumbar Spinal Stenosis Discharge Discharge Diagnosis / Problem: stenosis Discharge Goals Goal(s): Improve function Activity Recommendations Activity Limitations: per Instructions/Follow-up section . Instructions / Follow-Up Instructions / Follow-Up ACTIVITY RECOMMENDATIONS: SELF CARE INSTRUCTIONS AFTER THORACIC/LUMBAR FUSIONS 1. You may walk to your tolerance. It is good exercise for your legs and back. Expect some back and intermittent leg aches and pains. 2. You may perform "counter-top" level activities (make a sandwich, ayala with a project, etc.). 3. No bending or lifting of more than 10 pounds or back twisting of any nature (roll like a log when turning in bed). 4. You may ride in a car for 20-30 minutes at a time. No driving until after your first visit with your doctor. 5. Frequent changes of position and restricting sitting to 30 minutes at a time will help limit the amount of back spasms and stiffness you may experience. 6. You may discontinue the use of ambulatory aids (cane, crutches, etc.) once your strength and confidence allow. 7. You may veterinary manager the shower and let water strike your incision when you arrive home at least once daily. Do not take a tub bath, sit in a hot tub or go into a swimming pool until after your first recheck in the office. SPECIAL CARE INSTRUCTIONS: VERY IMPORTANT TO READ AND REVIEW A. Your surgical incision has been closed with a cosmetic suture under the skin that will dissolve in about 6 weeks. In 14 days, you can use a pair of clean scissors and cut the suture that is left outside of the skin at the ends of your incision. 1. The small skin tapes can be removed 7 days after surgery if they have not fallen off by that point. 2. You may keep the wound open to air as much as possible to promote healing after post-op day number 5 unless told otherwise by your doctor. 3. If you think the wound looks like it is becoming infected (redness or worsening drainage) and/or you are experiencing fever, chill or worsening back pain and muscle spasms, contact the office so that we may evaluate you as soon as possible. B. Complications are uncommon, but please contact us if you have any signs or symptoms of: 1. wound infection (fever higher than 102.5 degrees F, redness, separation of wound, drainage, or increasing pain from the incision) 2. blood clots in legs (pain, swelling, redness and warmth in legs) 3. urinary tract infection (fever higher than 102.5 degrees F, burning upon urination or increased frequency of urination) 4. nerve problems (inability to walk on your toes or heels, numbness, loss of bowel or bladder control) 5. any other symptoms that concern you C. Please call the office at if you have any concerns or questions about your operation or recovery. D. No smoking! Smoking drastically decreases the chance of a solid fusion. E. Do not take any anti-inflammatory medications (Indocin, Advil, Motrin, Aspirin, Naprosyn, etc.) as these may inhibit the chance of a solid fusion. Tylenol is okay to take for pain. MANAGING PAIN AFTER SPINAL SURGERY 1. Narcotic medication is intended for short-term use and will be provided for surgical pain. Surgical pain usually lasts for a period of 4-6 weeks. Narcotic medication includes Percocet, Vicodin, Darvocet, Tylenol #3 or Lortab. 2. Longer-term pain is more appropriately treated with non-narcotic medication such as Tylenol ES. 3. Muscle spasm is not appropriately treated with narcotics. Muscle relaxers such as Soma, Flexeril or Skelaxin can be used along with Tylenol ES. 4. Remember that we all live with some "aches and pains". This is not unusual or uncommon after an injury or as we get older. a. Back pain is expected and may include muscle spasms for 4 to 6 weeks after surgery. The pain should gradually improve. If the pain worsens for no apparent reason, please contact the office. b. Intermittent leg pain may also be experienced and should not be concerned about unless it worsens for no apparent reason. If so, please contact the office. 5. We will provide appropriate medication within the normal guidelines of their prescribed use. We will also be very cautious and aware of potential abuse and extended duration of patients' medication needs. a. Pain medications are for your comfort and to assist with sleep and rest so that the tissue can heal. They are not provided in order to return to normal activity and should not be used through the day. To do so or worsening pain at night can result from ongoing tissue damage and development of tolerance to the prescribed medicine. 6. Please allow 2-3 days to process refills. Prescriptions will not be mailed but must be picked up at the office. FOLLOW UP VISIT: Keep your scheduled follow-up appointment. Any questions, please call the office at . Current Hospital Diet Patient's current hospital diet: Diabetes Type 2 Diet Discharge Diet Recommended Diet: Regular Diet Procedures Procedures Performed: L4-L5 Decompression, posterior instrumented fusion, application of interbody cage, use of bone morphogenetic protein and Rae allograft Pending Studies Studies pending at discharge: no Laboratory Results Hemoglobin A1c Test 05/31/16 07:36 Range/Units Estimated Average Glucose 197 mg/dl Hemoglobin A1c 8.5 H 4.5-5.6 % Lipid Panel Test 05/05/16 05:15 Range/Units Triglycerides Level 358 H 0-150 mg/dl Cholesterol Level 184 0-200 mg/dl HDL Cholesterol 32 mg/dl Cholesterol/HDL Ratio 5.8 LDL Cholesterol, Calculated 80 mg/dl Medical Emergencies . Who to Call and When: Medical Emergencies: If at any time you feel your situation is an emergency, please call 911 immediately. . Non-Emergent Contact Non-Emergency issues call your: Primary Care Provider . "Provider Documentation" section prepared by Yves Germain. VTE Core Measure Inpt VTE Proph given/why not?: Israel Rivas, SCD's
[2016-06-01 14:35] VITALS: BP 144/87; PULSE 75; TEMP 36.7; O2SAT 96
--- NOTE | 2016-06-01 15:12 | DISCHARGE SUMMARY ---
PRINCIPAL DIAGNOSIS: Spinal stenosis. HOSPITAL COURSE FOLLOWS: On May 30 the patient underwent lumbar decompression and fusion, tolerated this well and taken to the orthopedic floor postoperatively. Postop day #1 he was up and ambulatory, progressed to postop day #2. Pain controlled. Subsequently discharged home. Discharge orders and instructions can be found on the chart for further review.
[2016-06-01 16:16] VITALS: BP 172/74; PULSE 108; TEMP 36.9; O2SAT 97
[2016-06-02] MEDS ORDERED: INSULIN GLARGINE SOLOSTAR 100 UNITS/ML 3 ML PEN SC SCH (09:00)
[2016-07-05] MEDS ORDERED: HYDR4TAB78 PO (08:52)
== END 2016-06-01 18:00 | disposition home or self-care (01) | DRG 460 ==
LOC: ENRESERVTM → ENRESERVDT → C.ACU 05:42 → C.3E 07:00 → C.2T 15:39 → C.MSN 05-31 10:07
PROVIDERS: ADMIT Orthopaedic Surgery Orthopaedic Surgery of the Spine; ATTEND Orthopaedic Surgery Orthopaedic Surgery of the Spine
PROC: 3E0U0GB Introduction of Recombinant Bone Morphogenetic Protein into Joints, Open Approach (ICD-10-PCS; principal; 2016-05-30 07:30)
PROC: 01NB0ZZ Release Lumbar Nerve, Open Approach (ICD-10-PCS; principal; 2016-05-30 07:30)
PROC: 0SG0071 Fusion of Lumbar Vertebral Joint with Autologous Tissue Substitute, Posterior Approach, Posterior Column, Open Approach (ICD-10-PCS; principal; 2016-05-30 07:30)
PROC: 0SG00AJ Fusion of Lumbar Vertebral Joint with Interbody Fusion Device, Posterior Approach, Anterior Column, Open Approach (ICD-10-PCS; principal; 2016-05-30 07:30)
PROC: 0ST20ZZ Resection of Lumbar Vertebral Disc, Open Approach (ICD-10-PCS; principal; 2016-05-30 07:30)
DX: M48.06 Spinal stenosis, lumbar region (principal); F11.20 Opioid dependence, uncomplicated; M96.1 Postlaminectomy syndrome, not elsewhere classified; M43.16 Spondylolisthesis, lumbar region; G89.18 Other acute postprocedural pain; K59.00 Constipation, unspecified; I10 Essential (primary) hypertension; J45.909 Unspecified asthma, uncomplicated; E11.65 Type 2 diabetes mellitus with hyperglycemia; E78.5 Hyperlipidemia, unspecified; K21.9 Gastro-esophageal reflux disease without esophagitis; M19.90 Unspecified osteoarthritis, unspecified site; I25.10 Atherosclerotic heart disease of native coronary artery without angina pectoris; D45 Polycythemia vera; M79.7 Fibromyalgia; G89.29 Other chronic pain; M54.5 Low back pain; T40.2X5A Adverse effect of other opioids, initial encounter; E29.1 Testicular hypofunction; N40.0 Benign prostatic hyperplasia without lower urinary tract symptoms; F17.210 Nicotine dependence, cigarettes, uncomplicated; G47.33 Obstructive sleep apnea (adult) (pediatric); Z99.89 Dependence on other enabling machines and devices; Z99.81 Dependence on supplemental oxygen; Z98.1 Arthrodesis status; Z79.4 Long term (current) use of insulin; Z79.82 Long term (current) use of aspirin; Z79.899 Other long term (current) drug therapy

== ENCOUNTER 2016-06-05 15:52 | Observation (INO) | payer BC ==
[~2016-06-05] VITALS: Ht 170.2 cm; Wt 112.0 kg
[~2016-06-05 15:52] MED LIST changes: +CERTIZINE PO
[2016-06-05] MEDS ORDERED: HYDR2TAB2 PO (17:55)
[2016-06-05] MEDS ORDERED: HYDROmorphone INJ 1 MG/ML SYR IV STA ×3 (18:12→20:45)
[2016-06-05] MEDS ORDERED: ONDANSETRON INJ 2 MG/ML 2 ML VIAL IV STA (18:12)
[2016-06-05 18:40] LABS: BASO % 0.1 %; BASO ABS # 0.02 K/uL (0-0.2); COMPLETE YES; HEMATOCRIT 35.4 % (42-52); IG% 0.4 %; LYMPH % 11.8 %; LYMPH ABS # 1.78 K/uL (1.2-3.4); MEAN CELL VOLUME 77.3 fL (80-100); MEAN CORPUSCULAR HEMOGLOBIN 24.5 pg (25-34); MEAN CORPUSCULAR HGB CONC 31.6 g/dl (32-36); MEAN PLATELET VOLUME 9.1 fL (7.4-10.4); MONO % 9.9 %; NEUT % 76.8 %; PLATELET COUNT 319 K/uL (130-400); RED BLOOD COUNT 4.58 M/uL (4.7-6.1); WHITE BLOOD COUNT 15.11 K/uL (4.8-10.8)
[2016-06-05] MEDS ORDERED: METOPROLOL SUCC 50MG EXT REL TAB PO STA (18:43)
[2016-06-05 18:57] LABS: BLOOD UREA NITROGEN 13 mg/dl (7-18); BUN/CREATININE RATIO 12.2 (10-20); CALCIUM 8.7 mg/dl (8.5-10.1); CARBON DIOXIDE 27 mmol/L (21-32); CHLORIDE 99 mmol/L (98-107); GLUCOSE 158 mg/dl (70-99); POTASSIUM 3.9 mmol/L (3.5-5.1); SODIUM 137 mmol/L (136-145)
[2016-06-05] MEDS ORDERED: METOPROLOL SUCC 25MG EXT REL TAB PO STA (19:09)
[2016-06-05] MEDS ORDERED: HYDROmorphone INJ 0.5 MG/0.5 ML SYR IV STA (20:11)
--- NOTE | 2016-06-05 20:15 | DIAGNOSTIC IMAGING REPORT ---
CHEST 2 VIEWS ROUTINE CLINICAL HISTORY: eval for pnea dyspnea COMPARISON STUDY: 05/04/2016 FINDINGS: Mild stable cardia megaly. Lungs are clear. Diaphragms smooth. IMPRESSION: No acute process. Mild stable cardiomegaly. Electronically signed by: Hubert Mckinley M.D. 06/05/2016 8:13 PM Dictated Date/Time: 06/05/2016 8:13 PM
--- NOTE | 2016-06-05 20:16 | DIAGNOSTIC IMAGING REPORT ---
LUMBAR SPINE 5 VIEWS HISTORY: Pain eval for fx/ post op pain COMPARISON: None. FINDINGS: There is no fracture. Findings consistent with a postoperative fusion at L4-L5 with disc spacers present at L5-S1 and L4-L5. Alignment is generally anatomic. IMPRESSION: Postoperative change. No acute process. Electronically signed by: Hubert Mckinley M.D. 06/05/2016 8:15 PM Dictated Date/Time: 06/05/2016 8:14 PM
[2016-06-05 20:21] LABS: URINE APPEARANCE CLEAR (CLEAR); URINE BILIRUBIN NEG (NEG); URINE COLOR YELLOW; URINE NITRITE NEG (NEG); URINE SPECIFIC GRAVITY 1.003 (1.000-1.030); UROBILINOGEN NEG (NEG)
[2016-06-05 20:26] LABS: MANUAL MICROSCOPIC REQUIRED? NO; REVIEW REQ? NO
[2016-06-05] MEDS ORDERED: NURSING VERBAL MED ORDER ONE ×2 (21:00→21:30)
[2016-06-05 21:15] VITALS: O2SAT 96
[2016-06-05 21:45] VITALS: BP 172/83; PULSE 110; TEMP 36.8; O2SAT 96
[2016-06-05] MEDS ORDERED: ONDANSETRON INJ 2 MG/ML 2 ML VIAL IV PRN (21:45)
[2016-06-05] MEDS ORDERED: NALOXONE HCL 0.4 MG/1 ML VIAL/CARP IV PRN (21:45)
[2016-06-05] MEDS ORDERED: IV FLUIDS COMPLETED PRN (21:45)
[2016-06-05] MEDS: SODIUM CHLORIDE 0.9% 1000ML 1,000 ML IV SCH (22:00)
[2016-06-05] MEDS: HYDROmorphone HCL 0.5MG/ML 50 ML CASSETTE IV PRN ×2 (22:04→23:06)
[2016-06-05] MEDS ORDERED: LUBIPROSTONE 8 MCG CAP PO PRN (22:15)
[2016-06-05] MEDS ORDERED: HYDROmorphone INJ 1 MG/ML SYR IV ONE (22:15)
[2016-06-05] MEDS ORDERED: HYDROmorphone INJ 0.5 MG/0.5 ML SYR IV PRN (22:15)
[2016-06-05] MEDS ORDERED: PANTOprazole SOD 40 MG TAB PO PRN (22:15)
[2016-06-05] MEDS ORDERED: NITROGLYCERIN 0.4 MG SL PER TAB CHARGE SL PRN (22:15)
[2016-06-05] MEDS ORDERED: ALBUTEROL HFA 8 GM INHALER INH PRN (22:15)
[2016-06-05] MEDS ORDERED: IPRASOL4 INH (22:25)
[2016-06-05] MEDS ORDERED: ALBUT/IPRATROP 3MG/0.5MG NEB 3 ML VIAL INH PRN (22:30)
[2016-06-05 23:29] VITALS: BP 172/83; PULSE 110; TEMP 36.8; Ht 170.2 cm; Wt 112.0 kg
[2016-06-05 23:32] VITALS: BP 167/75; PULSE 103; TEMP 36.9; O2SAT 92
--- NOTE | 2016-06-05 23:41 | INTERNAL MEDICINE CONSULTATION ---
DATE OF CONSULTATION: 06/05/2016 CHIEF COMPLAINT: Back pain. HISTORY OF PRESENT ILLNESS: This is a 55-year-old male with past medical history significant for diabetes, hypertension, hyperlipidemia, history of chest pain mild CAD on recent cath, who recently had lumbar surgery and was in the hospital again with severe back pain. 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 Comes back again with severe pain. The patient says he has chronic pain, is on high dose of MS Contin for several years, and he was afraid of the back surgery because of increased requirement of pain medication post-surgery. Anyway, he went ahead and had surgery, and since surgery, his back pain has been getting worse. He is not able to keep his back pain under control. The current pain regimen is not working. He tried to avoid coming to the hospital, but because he is not able to control his pain and because of ambulatory dysfunction secondary to the pain, he came to the hospital. In the ER, he received several doses of IV Dilaudid and currently he is getting started on Dilaudid pump and is requesting for a dose of IV Dilaudid before the pump start working. Denies any chest pain. No shortness of breath, no cough, no fever, no chills. He is chronically constipated. He denies any blurred visions. No headaches, no dizziness, no nausea, no vomiting. Appetite is okay. No fever, no chills. ALLERGIES: TO ADHESIVES, CLARITHROMYCIN, LATEX. FAMILY HISTORY: Significant for father with hypertension, diabetes, heart disease. SOCIAL HISTORY: Smokes 1 pack a day for 20 years, on nicotine patch. No alcohol use. No drug use. , lives with family, unemployed. REVIEW OF SYMPTOMS: As per HPI. Rest of review of symptoms negative. MEDICATIONS: At home, the patient is on Lipitor 20 mg p.o. daily, lisinopril 5 mg p.o. daily, metoprolol succinate 12.5 mg p.o. daily, aspirin 81 mg p.o. daily, Toujeo SoloStar 150 units daily, MS Contin 30 mg q. 12 hours, testosterone topically on the skin, cetirizine 10 mg p.o. daily, albuterol 2 inhalation puffs q. 6 hours p.r.n., NovoLog FlexPen 20 units with each males, DuoNeb q. 6 hours p.r.n., MS Contin 100 mg p.o. b.i.d., morphine sulfate immediate-release 15 mg p.o. b.i.d. p.r.n., Viagra as needed, oxygen 1.5 liters via CPAP during sleep, Amitiza 24 mcg p.o. b.i.d. with food, Protonix 40 mg p.o. daily, vitamin D 2000 units p.o. daily. PHYSICAL EXAMINATION: GENERAL: The patient is obese, not in distress. VITAL SIGNS: Temperature 37.6, pulse 113, respiratory rate 16, blood pressure 160/87, oxygen 96% on room air. HEENT: No pallor, no icterus. NECK: No JVD, no neck masses. CARDIOVASCULAR: S1, S2 heard. Regular rate and rhythm. No murmur, no gallop. RESPIRATORY: Clear to auscultation bilaterally. No wheezing, no crackles. ABDOMEN: Soft, bowel sounds present. Nontender. No distention. CENTRAL NERVOUS SYSTEM: Nonfocal. EXTREMITIES: No edema, no erythema. MUSCULOSKELETAL: Status post back surgery, dressing intact. No drainage or erythema seen around the dressing. LABORATORY DATA: WBC 15, hemoglobin 11.2, hematocrit 35.4, platelets 319. Sodium 137, potassium 3.9, chloride 99, bicarbonate 27, BUN 13, creatinine 1.1, serum glucose 158, calcium 8.7. Urinalysis negative. Lumbar spine x-ray: Postoperative change, no acute process seen. Chest x-ray: No acute process, mild stable cardiomegaly. ASSESSMENT AND PLAN: This is a 55-year-old male who presents with severe back pain. 1. Severe back pain. Recent history of back surgery. He is chronically on significant pain medications and his pain is uncontrolled with current pain regimen post-surgery. Currently, he received several doses of IV Dilaudid, still pain is not controlled. 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 Patient is requesting for IV Dilaudid before HYDRAULIC DESIGN ENGINEER pump start working, we will give 1 mg IV Dilaudid and also we will place him 0.5 mg q. 3 hours p.r.n. Further management per orthopedics. 2. Leukocytosis. Lumbar spine x-ray is fine. Chest x-ray is okay. We will follow the labs. He has also had mild temp spike. We will also get blood cultures. 3. History of diabetes. He is on Toujeo SoloStar at home. We will replace as per pharmacy and place him on insulin sliding scale. Follow the blood sugars. 4. History of sleep apnea, on CPAP. 5. History of testicular hypofunction, on testosterone replacement. 6. History of hypertension, on Prinivil and Toprol-XL. We will follow his blood pressures. 7. Gastroesophageal reflux disease. Continue Protonix. 8. History of asthma. Continue his home inhalers and nebs. 9. Deep venous thrombosis prophylaxis and disposition as per orthopedics. Thank you. ZIGGY
--- NOTE | 2016-06-05 23:52 | EMERGENCY ROOM VISIT NOTE ---
History Report prepared by Slim: Kurt Melvin Under the Supervision of: Dr. Maximiliano Thurman M.D. First contact with patient: 17:55 Chief Complaint: BACK PAIN Stated Complaint: BACK PAIN History of Present Illness The patient is a 55 year old male who presents to the Emergency Room with complaints of persistent severe lower back pain s/p lumbar fusion and decompression six days ago. The patient has been experiencing chronic back pain for many years, and is having increased pain since the surgery. He also notes increased right leg pain since the surgery, although he did have pain radiated down the right thigh before the surgery. The patient was on a Dilaudid drip while he was in the hospital, and was doing well at that time. The patient was given a prescription for 2 mg Dilaudid every 8 hours since the surgery. The patient is still taking the 275 mg Morphine that he was prescribed for the chronic pain. He had three doses of Dilaudid today and two doses of Morphine throughout the day without any relief of his pain. The patient reports nausea and dizziness after the third dose of Dilaudid. He denies any fevers, urinary incontinence, weakness, or numbness. The surgery was performed by Dr. Germain, who referred him to the ED over the phone two days ago. The patient was discharged four days ago. His blood pressure is elevated but the patient states that he has not taken his Toprol since Monday. Source of History: patient Onset: six days ago Position: back (lower) Symptom Intensity: severe Quality: other (s/p surgery) Timing: other (persistent) Associated Symptoms: + nausea, No fevers, No numbness, No urinary symptoms, No weakness Review of Systems See HPI for pertinent positives & negatives. A total of 10 systems reviewed and were otherwise negative. Past Medical & Surgical Medical Problems: (1) Asthma (2) BPH (benign prostatic hyperplasia) (3) Chest pain (4) Chronic back pain (5) HLD (hyperlipidemia) (6) HTN (hypertension) (7) IDDM (insulin dependent diabetes mellitus) (8) Low testosterone (9) Lumbar stenosis with neurogenic claudication (10) AR (obstructive sleep apnea) (11) Polycythemia, secondary (12) Tobacco abuse Surgical Problems: (1) History of appendectomy (2) History of back surgery (3) History of back surgery Family History FH: HTN (hypertension) FH: diabetes mellitus FH: heart disease Social History Smoking Status: Current Every Day Smoker Alcohol Use: none Drug Use: none Marital Status: Housing Status: lives with family Occupation Status: unemployed Current/Historical Medications Scheduled Aspirin (Aspirin Ec), 81 MG PO QAM Cholecalciferol (Vitamin D3), 1 CAP PO QAM Hydromorphone Hcl (Hydromorphone Hcl), PO UD Insulin Aspart (Novolog), INJ SLIDING SCALE Insulin Glargine (Toujeo Solostar), 80 UNITS INJ QAM Lisinopril (Prinivil), 5 MG PO QAM Metoprolol Succ (Toprol Xl) (Toprol-Xl), 12.5 MG PO QPM Morphine Sulfate (Ms Contin), 100 MG PO BID Morphine Sulfate (Morphine Sulfate ER), 1-2 TABS PO QPM Nicotine (Nicotine), 21 MG TD DAILY Oxygen (Oxygen), 2 LITER NA HS Sildenafil Citrate (Viagra), 100 MG PO PRN Testosterone (Androgel Pump), 1 APPLN TOP DAILY Scheduled PRN Albuterol (Ventolin Hfa), 2 PUFFS INH QID PRN for Shortness of Breath Ipratropium-Albuterol (Duoneb), 1 TREATMENT INH Q4H PRN for SOB/Wheezing Lubiprostone (Amitiza), 24 MCG PO DAILY PRN for Constipation Morphine Sulfate Ir (Morphine Sulfate Ir), 15 MG PO UD PRN for Pain Nitroglycerin (Nitrostat), 0.4 MG PO UD PRN for Chest Pain Pantoprazole (Protonix), 40 MG PO DAILY PRN for Indigestion [Certizine], 5-10 MG PO DAILY PRN for ALLERGIC REACTION Allergies Coded Allergies: Uncoded Nonscreenable Allergen (Verified Allergy, Intermediate, PLASTICS: BLISTERS, 06/05/16) HAS SPECIAL CPAP MASK Adhesives (Verified Allergy, Unknown, SKIN RASH-WITH SOME TAPES, 06/05/16) Clarithromycin (Verified Allergy, Unknown, DAMAGED LIVER PER PT-REQUIRED HOSPITALIZATION, 06/05/16) PT. GOT HEPATITIS B FROM THIS MED AND REQUIRED HOSPITILIZATION-FUNCTION RESTORED PER PT Latex1 -Allergic Contact Dermititis (Unverified Allergy, Unknown, IRRITATION ON SKIN WITH CONTACT, 06/05/16) Physical Exam Vital Signs Date Time Temp Pulse Resp B/P Pulse Ox O2 Delivery O2 Flow Rate FiO2 06/05/16 20:53 113 16 160/87 96 Room Air 06/05/16 19:30 113 16 143/72 95 Room Air 06/05/16 18:32 105 06/05/16 18:30 106 19 168/76 06/05/16 16:06 37.6 116 20 148/80 97 Room Air Physical Exam Constitutional: Vital signs reviewed. Eyes: Pupils are equal round reactive to light. Conjunctiva are noninjected. ENT: Pharynx is clear without erythema or exudate. Mucous membranes are moist. Neck supple without meningeal signs. Respiratory: Clear to auscultation bilaterally. Breath sounds are equal bilaterally. Cardiovascular: Regular rate and rhythm. No rubs or gallops. GI: Soft, nondistended and nontender. Bowel sounds are present. Musculoskeletal: Midline incision to the lumbar spine without drainage or erythema. Integumentary: No cyanosis. Neurological: The patient is awake and alert. No focal deficits. Motor and sensation intact throughout the lower extremities. Psychiatric: Normal affect. Medical Decision & Procedures ER Provider Diagnostic Interpretation: X-ray results as stated below per interpretation by me and the radiologist: LUMBAR SPINE 5 VIEWS HISTORY: Pain eval for fx/ post op pain COMPARISON: None. FINDINGS: There is no fracture. Findings consistent with a postoperative fusion at L4-L5 with disc spacers present at L5-S1 and L4-L5. Alignment is generally anatomic. IMPRESSION: Postoperative change. No acute process. Electronically signed by: Hubert Mckinley M.D. 06/05/2016 8:15 PM Dictated Date/Time: 06/05/2016 8:14 PM CHEST 2 VIEWS ROUTINE CLINICAL HISTORY: eval for pnea dyspnea COMPARISON STUDY: 05/04/2016 FINDINGS: Mild stable cardia megaly. Lungs are clear. Diaphragms smooth. IMPRESSION: No acute process. Mild stable cardiomegaly. Electronically signed by: Hubert Mckinley M.D. 06/05/2016 8:13 PM Dictated Date/Time: 06/05/2016 8:13 PM Laboratory Results 06/05/16 18:20 Red Blood Count 4.58, Mean Corpuscular Volume 77.3, Mean Corpuscular Hemoglobin 24.5, Mean Corpuscular Hemoglobin Concent 31.6, Mean Platelet Volume 9.1, Neutrophils (%) (Auto) 76.8, Lymphocytes (%) (Auto) 11.8, Monocytes (%) (Auto) 9.9, Eosinophils (%) (Auto) 1.0, Basophils (%) (Auto) 0.1, Neutrophils # (Auto) 11.61, Lymphocytes # (Auto) 1.78, Monocytes # (Auto) 1.49, Eosinophils # (Auto) 0.15, Basophils # (Auto) 0.02 06/05/16 18:20 Test 06/05/16 18:20 06/05/16 19:50 White Blood Count 15.11 K/uL (4.8-10.8) Red Blood Count 4.58 M/uL (4.7-6.1) Hemoglobin 11.2 g/dL (14.0-18.0) Hematocrit 35.4 % (42-52) Mean Corpuscular Volume 77.3 fL (80-100) Mean Corpuscular Hemoglobin 24.5 pg (25-34) Mean Corpuscular Hemoglobin Concent 31.6 g/dl (32-36) Platelet Count 319 K/uL (130-400) Mean Platelet Volume 9.1 fL (7.4-10.4) Neutrophils (%) (Auto) 76.8 % Lymphocytes (%) (Auto) 11.8 % Monocytes (%) (Auto) 9.9 % Eosinophils (%) (Auto) 1.0 % Basophils (%) (Auto) 0.1 % Neutrophils # (Auto) 11.61 K/uL (1.4-6.5) Lymphocytes # (Auto) 1.78 K/uL (1.2-3.4) Monocytes # (Auto) 1.49 K/uL (0.11-0.59) Eosinophils # (Auto) 0.15 K/uL (0-0.5) Basophils # (Auto) 0.02 K/uL (0-0.2) RDW Standard Deviation 46.5 fL (36.4-46.3) RDW Coefficient of Variation 16.3 % (11.5-14.5) Immature Granulocyte % (Auto) 0.4 % Immature Granulocyte # (Auto) 0.06 K/uL (0.00-0.02) Anion Gap 11.0 mmol/L (3-11) Estimated GFR () 88.4 Estimated GFR (Non- 76.2 BUN/Creatinine Ratio 12.2 (10-20) Calcium Level 8.7 mg/dl (8.5-10.1) Urine Color YELLOW Urine Appearance CLEAR (CLEAR) Urine pH 7.0 (4.5-7.5) Urine Specific [place] 1.003 (1.000-1.030) Urine Protein NEG (NEG) Urine Glucose (UA) NEG (NEG) Urine Ketones NEG (NEG) Urine Occult Blood NEG (NEG) Urine Nitrite NEG (NEG) Urine Bilirubin NEG (NEG) Urine Urobilinogen NEG (NEG) Urine Leukocyte Esterase NEG (NEG) Laboratory results as reviewed by me. Medications Administered Medications (Trade) Dose Ordered Sig/Shivani Route Start Time Stop Time Status Last Admin Dose Admin Hydromorphone HCl (Dilaudid Inj) 1 mg NOW STAT IV 06/05/16 18:12 06/05/16 18:14 DC 06/05/16 18:32 1 MG Ondansetron HCl (Zofran Inj) 4 mg NOW STAT IV 06/05/16 18:12 06/05/16 18:14 DC 06/05/16 18:32 4 MG Metoprolol Succinate (Toprol Xl Tab) 12.5 mg NOW STAT PO 06/05/16 19:09 06/05/16 19:10 DC 06/05/16 20:08 12.5 MG Hydromorphone HCl (Dilaudid Inj) 0.5 mg NOW STAT IV 06/05/16 19:10 06/05/16 19:11 DC 06/05/16 19:27 0.5 MG Hydromorphone HCl (Dilaudid Inj) 0.5 mg NOW STAT IV 06/05/16 20:11 06/05/16 20:12 DC 06/05/16 20:23 0.5 MG Hydromorphone HCl (Dilaudid Inj) 1 mg NOW STAT IV 06/05/16 20:45 06/05/16 20:46 DC 06/05/16 20:53 1 MG ED Course 1800: The patient was evaluated in room A11b. A complete history and physical exam was performed. 1811: Zofran 4 mg Iv, Dilaudid 1 mg IV. 1908: Toprol XI Tab 12.5 mg PO. 1909: Dilaudid 0.5 mg IV. 2010: Dilaudid 0.5 mg IV. 2029: The patient was in the hallway screaming at the staff and asking for more pain medicine. I had a long discussion with him about why we are giving him medications slowly to prevent depressed breathing and apnea. He says that his chronic pain is under control but his acute pain since the surgery is not under control. 2029: Spoke with Dr. Jackson, [facility]. He will admit the patient for pain control. 2044: Discussed the plan with the patient. He requested more pain medication in the meantime. 2044: Dilaudid 1 mg IV. Medical Decision This is a 55-year-old male presents with low back pain after his surgery on Monday. Differential diagnosis includes acute exacerbation of chronic pain, postoperative pain, fracture, constipation, wound infection. I did perform a limited focused review of portions of the patient's old chart on the electronic medical record. The patient was admitted on May 30 and underwent lumbar fusion and decompression with Dr. Germain. I did evaluate the patient as noted above. The patient is having low back pain which she has had since his surgery on Monday. He states that the Dilaudid and morphine he was prescribed has not been controlling his pain at home. He does not have any symptoms consistent with spinal cord injury such as numbness or weakness or incontinence. He does have a low-grade temperature here. His wound does not show any signs of infection on visible inspection. IV access was established. The patient was placed on a continuous cardiac surgeon. I did treat the patient with IV Dilaudid and Zofran. I did order and personally review the patient's lumbar spine and chest x-rays as described above. There is no evidence of hardware displacement or fracture. No pneumonia. Urinalysis was unremarkable. I did order and review the patient's blood work as noted in the electronic medical record. His white blood cell count is elevated at 15, 000. This is decreased from his previous WBCs which were 21,000 and 16,000. I did treat the patient with 2 additional doses of IV Dilaudid. At this point the patient became extremely unruly and started walking into the hallway shouting at the staff. The patient was claiming that we were not addressing his pain. I did have a long discussion with him and explained to them that we have been giving him multiple doses of IV narcotics. He stated he needed more. I explained to him that we had to go slowly and not overdose him so that he would not end up with respiratory depression. The patient requested more pain medicine stating that he still had significant pain. He was given an additional dose of IV Dilaudid. I did discuss the case with Dr. Lang of orthopedic spine. He will hospitalize the patient for further evaluation and pain management. Consults Time Called: 2019 Consulting Physician: Dr. Granados, [facility] Returned Call: [phone]: Spoke with Dr. Granados, [facility]. He will admit the patient for pain control. Impression Primary Impression: Intractable low back pain Additional Impression: Previous back surgery Scribe Attestation The scribe's documentation has been prepared under my direct and personally reviewed by me in its entirety. I confirm that the note above accurately reflects all work, treatment, procedures, and medical decision making performed by me. Departure Information Dispostion Other (Being Evaluated By Orthopedist) Prescriptions Ipratropium-Albuterol (DUONEB) 3 Ml Nebu 1 TREATMENT INH Q4H Y for SOB/Wheezing, #1 INHA Prov: Sonido Manuel MD 06/05/16 Referrals Oswaldo Sampson M.D. (PCP) Patient Instructions [facility] Problem Qualifiers
[2016-06-06] VITALS (9 sets, daily range): BP systolic 126–171; BP diastolic 68–89; PULSE 88–102; TEMP 36.4–36.9; O2SAT 94–98
[2016-06-06] MEDS ORDERED: MORPHINE SULFATE 100 MG PO ONE ×2 (00:05→06:30)
[2016-06-06] MEDS ORDERED: IBUPROFEN 200 MG TAB PO PRN (00:15)
[2016-06-06] MEDS ORDERED: LIDODERM (LIDOCAINE) PATCH 5% TD ONE (00:15)
[2016-06-06] MEDS ORDERED: LORAZEPAM 2 MG/ML 1 ML VIAL IV ONE (00:42)
[2016-06-06] MEDS ORDERED: LORAZEPAM 2 MG/ML 1 ML VIAL IV PRN (00:45)
[2016-06-06] MEDS ORDERED: PHARMACY GLYCEMIC MGMT CONSULT PRN (00:45)
[2016-06-06] MEDS ORDERED: CYCLOBENZAPRINE HCL 10 MG TAB PO PRN (00:45)
[2016-06-06] MEDS: HYDROmorphone INJ 1 MG/ML SYR IV PRN ×6 (00:48→20:50)
[2016-06-06] MEDS ORDERED: HYDROmorphone INJ 1 MG/ML SYR IV ONE ×2 (00:49→06:30)
[2016-06-06] MEDS ORDERED: KETOROLAC TROMETHAMINE 30 MG/ML VIAL IV ONE (00:49)
[2016-06-06] MEDS ORDERED: HYDROmorphone INJ 0.5 MG/0.5 ML SYR IV PRN (01:00)
[2016-06-06] MEDS ORDERED: NICOTINE POLACRILEX 2 MG GUM MT PRN (01:00)
[2016-06-06] MEDS ORDERED: LORAZEPAM INJ 0.5 MG in SYRINGE 0.75 ML IV ONE (01:00)
[2016-06-06] MEDS ORDERED: NSS + 20MEQ KCL 1000ML 1,000 ML IV ONE (01:30)
[2016-06-06] MEDS ORDERED: NICOTINE 7 MG/24 HR TDSY TD ONE (01:50)
[2016-06-06] MEDS: KETOROLAC TROMETHAMINE 30 MG/ML VIAL IV PRN ×3 (01:51→15:30)
[2016-06-06] MEDS: LORAZEPAM INJ 0.5 MG in SYRINGE 0.75 ML IV PRN ×3 (04:41→20:24)
[2016-06-06] MEDS ORDERED: GLUCOSE 10 TABS/TUBE PO PRN (04:45)
[2016-06-06] MEDS ORDERED: GLUCOSE 40% GEL 15 GM TUBE PO PRN (04:45)
[2016-06-06] MEDS ORDERED: DEXTROSE 50% 50 ML SYR IV PRN (04:45)
[2016-06-06] MEDS ORDERED: GLUCAGON FOR INJ 1 MG VIAL SQ PRN (04:45)
[2016-06-06] MEDS ORDERED: CETIRIZINE HCL 10 MG TAB PO PRN (04:45)
[2016-06-06] MEDS: MoRPHine SULFATE IR 15 MG TAB (IMMEDIATE RELEASE) PO PRN ×2 (05:41→20:57)
[2016-06-06] MEDS: MORPHINE SULFATE 100 MG PO SCH ×2 (06:27→16:49)
[2016-06-06] MEDS ORDERED: NURSING VERBAL MED ORDER ONE (06:30)
[2016-06-06] MEDS: HYDROmorphone HCL 0.5MG/ML 50 ML CASSETTE IV PRN ×3 (07:06→23:21)
[2016-06-06] MEDS: CHOLECALCIFEROL 1000 INTER.UNIT TAB PO SCH (07:56)
[2016-06-06] MEDS: LISINOPRIL 5 MG TAB PO SCH (07:56)
[2016-06-06] MEDS: ASPIRIN 81 MG ECTAB PO SCH (07:56)
[2016-06-06] MEDS: NICOTINE 21 MG/24 HR TDSY TD SCH (07:57)
[2016-06-06] MEDS: DOCUSATE SODIUM/SENNA 50/8.6MG TAB PO SCH ×2 (08:10→21:00)
[2016-06-06] MEDS: INSULIN ASPART 100 UNITS/ML 3 ML PEN SC SCH ×4 (08:18→21:32)
[2016-06-06] MEDS ORDERED: NICOTINE 14 MG/24 HR TDSY TD SCH (09:00)
[2016-06-06] MEDS ORDERED: MORPHINE SULFATE 100 MG PO SCH (09:00)
[2016-06-06] MEDS ORDERED: INSULIN GLARGINE SOLOSTAR 100 UNITS/ML 3 ML PEN SC SCH (09:00)
--- NOTE | 2016-06-06 10:45 | HISTORY & PHYSICAL EXAMINATION ---
DATE OF ADMISSION: 06/05/2016 CHIEF COMPLAINT: Back and right quadriceps pain. HISTORY OF PRESENT ILLNESS: This is a 55-year-old male who is well known to me having recently undergone adjacent level decompression and fusion at L4-L5. He does have a longstanding history of chronic narcotic use being managed by [facility]. He had been discharged home postoperatively with his normal pain regimen, as well as 2 mg Dilaudid p.o. q. 6-8 hours. Unfortunately, this has not been successful in controlling his pain and I think the primary reason for his re-admittance. PHYSICAL EXAMINATION: His vital signs are stable. T-max 36.9. Lab studies demonstrate a white count of 15. Hematocrit 35.4. No shift. Blood cultures pending. On exam, he is sitting at the side of the bed. Incision is clean, dry and intact. There is no evidence of erythema, drainage or swelling. He has no tension signs on bench exam and an excellent quadriceps, plantarflexion, dorsiflexion, plantarflexion bilaterally. Sensory is symmetric and intact. X-rays of lumbar spine were obtained and do demonstrate instrumentation to be in place, unchanged from postoperative films. ASSESSMENT: Status post lumbar decompression and fusion with postoperative pain management issues. 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 Plan is to discontinue the WORLD HISTORY TEACHER tomorrow. Transitioned to oral p.o. Dilaudid, ensure he is able to tolerate this, and then discharge home.
--- NOTE | 2016-06-06 13:50 | Pharmacy Progress Note ---
Glycemic Control Intl Consult Date of Service Jun 06, 2016. Scope Glycemic Pharmacist consulted by Dr Manuel on 06/05/16 for glycemic control and to write orders per [facility] inpatient glycemic control protocol Objective Weight (Kilograms): 112.000 Accuchecks BSG (last 24hrs): Test 06/05/16 18:20 06/05/16 22:11 06/06/16 07:14 06/06/16 12:03 Random Glucose 158 mg/dl (70-99) Bedside Glucose 148 mg/dl (70-99) 144 mg/dl (70-99) 232 mg/dl (70-99) Laboratory Data (last 24hrs) Test 06/05/16 18:20 Anion Gap 11.0 mmol/L BUN/Creatinine Ratio 12.2 Blood Urea Nitrogen 13 mg/dl Creatinine 1.10 mg/dl Potassium Level 3.9 mmol/L Sodium Level 137 mmol/L White Blood Count 15.11 K/uL Red Blood Count 4.58 M/uL Hemoglobin 11.2 g/dL Hematocrit 35.4 % Mean Corpuscular Volume 77.3 fL Mean Corpuscular Hemoglobin 24.5 pg Mean Corpuscular Hemoglobin Concent 31.6 g/dl Platelet Count 319 K/uL Mean Platelet Volume 9.1 fL Neutrophils (%) (Auto) 76.8 % Lymphocytes (%) (Auto) 11.8 % Monocytes (%) (Auto) 9.9 % Eosinophils (%) (Auto) 1.0 % Basophils (%) (Auto) 0.1 % Neutrophils # (Auto) 11.61 K/uL Lymphocytes # (Auto) 1.78 K/uL Monocytes # (Auto) 1.49 K/uL Eosinophils # (Auto) 0.15 K/uL Basophils # (Auto) 0.02 K/uL HbA1c 05/31/16 Hgb A1c = 8.5% Recent Pertinent Medications Outpatient Anti-diabetic Regimen: * Toujeo 80 units qam, Novolog SSI * A1c = 8.5% 05/31/16 The patient is currently receiving: * Basal insulin: Lantus 64 units today for first dose after Toujeo * Correctional Insulin: Novolog Correction per scale ACHS Goal Range: Low 100 mg/dL - High 140 mg/dL Correction Factor: 30 mg/dL/unit * Prandial insulin: Per carb ratio of 1 unit per 10 grams CHO consumed * Oral Agents: none Risk Factors for Insulin Resistance: * Steroids: no * Infection: no * Pressors: no * 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 However, more stringent targets may be selected in individual cases. * 55 yo type 2 diabetic had back surgery a week ago, was discharged, and returned to hospital a few days later for continuing back pain. He had been using Toujeo 160 units daily, but due to increasing exercise and eating less, he cut back to 80 units daily, and is using more Novolog instead. Will give 20% less Lantus for first dose due to remaining Toujeo effect, then switch to the comparable dose of Lantus daily. Novolog coverage will be weight-based. Will reassess in am to see if more is needed. PLAN FOR INPATIENT GLYCEMIC CONTROL: * Basal insulin with LANTUS 80 units SQ qam * Correctional Insulin with NOVOLOG per scale ACHS or Q6hrs while NPO * Goal Range: Low 100 mg/dL - High 140 mg/dL * Correction Factor: 30 mg/dL/unit * Nutritional / Prandial insulin per carb ratio of 1 unit per 10 grams CHO consumed * Please note that the plan above was derived based on current level of insulin resistance and hospital stress. These recommendations are appropriate for inpatient admission only. Plan of care upon discharge will need to be reassessed to avoid potential outpatient hypo/hyperglycemia. Thank you.
[2016-06-06] MEDS ORDERED: METOPROLOL SUCC 25MG EXT REL TAB PO SCH (21:00)
[2016-06-06] MEDS ORDERED: OXYGEN SCH (21:00)
[2016-06-06] MEDS ORDERED: MoRPHine SULFATE CR 60 MG TAB (MS CONTIN) PO SCH (21:00)
[2016-06-06] MEDS: SODIUM CHLORIDE 0.9% 1000ML 1,000 ML IV SCH (21:37)
--- NOTE | 2016-06-06 23:50 | Progress Note ---
Internal Med Progress Note Date of Service: Jun 06, 2016. Provider Documentation: SUBJECTIVE: anxious and angry as not getting his pain meds as he takes at home has list of his pain meds with tack of time he was given different pain medications pt is counselled -requiring a lot of narcotic pain meds getting all medications at once can cause overdose, sedation , respiratory failure pt remains adamant says-he has had chronic pain for past 18 yrs has been dependent on the meds and takes them in certain way wants to keep his schedule pain management consulted OBJECTIVE: Vital Signs-as noted below Exam: General-no sign of distress Eyes-sclera non icteric ENT-nad Neck-no jvd Lungs-CTA Heart-regular S1/S2 Abdomen-soft, non tender Extremities-no lower ext edema Neuro-no focal deficit Lab data as noted below. ASSESSMENT & PLAN: INTRACTABLE BACK PAIN s/p back surgery-by Dr Germain -pt been on chronically pain medications -on Dilaudid DETACHER -requesting MS IR , PO Dilaudid , Ativan -gets angry when told that high risk for overdose and sedation with multiple narcotics and sedatives taken at once -pt mentions he has been taking these meds for number of years follows with [place] [facility] his back pain now out of control due to recent back surgery -Pain management consulted AR : CPAP AT NIGHT DISPOSITION Per Ortho Vital Signs: Date Time Temp Pulse Resp B/P Pulse Ox O2 Delivery O2 Flow Rate FiO2 06/06/16 23:33 36.8 99 16 160/74 95 Room Air 06/06/16 21:19 100 163/84 06/06/16 19:10 36.7 93 16 169/89 97 Room Air 06/06/16 16:00 Room Air 06/06/16 15:57 36.5 96 18 126/72 97 Room Air 06/06/16 10:40 36.6 88 16 163/83 98 BiPAP 2.0 06/06/16 07:35 Room Air 06/06/16 07:04 36.6 97 18 159/82 97 Room Air 06/06/16 03:58 36.4 90 16 159/76 97 BiPAP 06/06/16 02:00 102 16 171/74 98 CPAP 06/06/16 01:13 36.9 97 16 127/68 94 Room Air Lab Results: Results Past 24 Hours Test 06/06/16 07:14 2/20/17 12:03 06/06/16 19:11 Range/Units Bedside Glucose 144 232 181 70-99 mg/dl
[2016-06-07] MEDS ORDERED: MoRPHine SULFATE IR 15 MG TAB (IMMEDIATE RELEASE) PO ONE (00:35)
[2016-06-07] MEDS: HYDROmorphone INJ 1 MG/ML SYR IV PRN (00:47)
[2016-06-07] MEDS: LORAZEPAM INJ 0.5 MG in SYRINGE 0.75 ML IV PRN ×2 (01:02→13:48)
[2016-06-07] MEDS: KETOROLAC TROMETHAMINE 30 MG/ML VIAL IV PRN ×3 (01:11→16:16)
[2016-06-07 04:05] VITALS: BP 135/70; PULSE 71; TEMP 36.6; O2SAT 98
[2016-06-07 07:52] VITALS: BP 146/82; PULSE 84; TEMP 36.6; O2SAT 98
[2016-06-07] MEDS: HYDROmorphone HCL 0.5MG/ML 50 ML CASSETTE IV PRN (08:19)
[2016-06-07] MEDS: DOCUSATE SODIUM/SENNA 50/8.6MG TAB PO SCH (09:00)
[2016-06-07] MEDS ORDERED: INSULIN GLARGINE SOLOSTAR 100 UNITS/ML 3 ML PEN SC SCH (09:00)
[2016-06-07] MEDS ORDERED: TESTOSTERONE 1.62 % GEL 75GM BTL TD SCH (09:00)
[2016-06-07] MEDS ORDERED: NICOTINE 7 MG/24 HR TDSY TD SCH (09:00)
--- NOTE | 2016-06-07 09:39 | Pain Management Consultation ---
Pain Management Consultation Date of Consultation Jun 07, 2016. Reason for Consultation med mgt History 55yoM with recent L4-[address] Germain on 05/30/16. Pt admits frustration over what he perceives as nursing withholding his opiates. He states that "they won't give me what I am ordered." He reports continuous usage of his DIRECTOR VISUAL. He is curently receiving MSContin 260mg divided qd and MSIR 30mg divided qd in addition to utilizing dilaudid DIRECTOR VISUAL 17mg since initiation. Past Medical/Surgical History (1) Lumbar stenosis with neurogenic claudication (2) Intractable low back pain (3) Low testosterone (4) IDDM (insulin dependent diabetes mellitus) (5) HTN (hypertension) (6) Chest pain (7) HLD (hyperlipidemia) (8) AR (obstructive sleep apnea) (9) BPH (benign prostatic hyperplasia) (10) Polycythemia, secondary (11) Asthma (12) Tobacco abuse (13) Chronic back pain (14) History of back surgery (15) History of back surgery (16) History of appendectomy (17) Previous back surgery Social / Work History Marital Status: Housing Status: lives with family Occupation: unemployed Allergies Coded Allergies: Uncoded Nonscreenable Allergen (Verified Allergy, Intermediate, PLASTICS: BLISTERS, 06/05/16) HAS SPECIAL CPAP MASK Adhesives (Verified Allergy, Unknown, SKIN RASH-WITH SOME TAPES, 06/05/16) Clarithromycin (Verified Allergy, Unknown, DAMAGED LIVER PER PT-REQUIRED HOSPITALIZATION, 06/05/16) PT. GOT HEPATITIS B FROM THIS MED AND REQUIRED HOSPITILIZATION-FUNCTION RESTORED PER PT Latex1 -Allergic Contact Dermititis (Unverified Allergy, Unknown, IRRITATION ON SKIN WITH CONTACT, 06/05/16) Medications Current Inpatient Medications Medications (Trade) Dose Ordered Sig/Sihvani Route Start Time Stop Time Status Last Admin Dose Admin Naloxone HCl (Narcan Inj) 0.1 mg Q5M PRN IV 06/05/16 21:45 06/19/16 21:44 Hydromorphone HCl 25 mg 25 mg PRN PRN IV 06/05/16 21:45 06/19/16 21:44 06/07/16 08:19 25 MG Sodium Chloride (Nss 1000ml) 1,000 ml @ 15 mls/hr Q24H IV 06/05/16 21:45 3/21/17 21:44 06/06/16 21:37 15 MLS/HR Ondansetron HCl (Zofran Inj) 4 mg Q4H PRN IV 06/05/16 21:45 07/05/16 21:44 Miscellaneous (Iv Fluids Completed) 1 ea PRN PRN N/A 06/05/16 21:45 06/05/17 21:44 Albuterol (Ventolin Hfa Inhaler) 2 puffs QID PRN INH 06/05/16 22:15 07/05/16 22:14 Aspirin (Ecotrin Tab) 81 mg QAM PO 06/06/16 09:00 07/06/16 08:59 06/06/16 07:56 81 MG Lisinopril (Zestril Tab) 5 mg QAM PO 06/06/16 09:00 07/06/16 08:59 06/06/16 07:56 5 MG Metoprolol Succinate (Toprol Xl Tab) 12.5 mg QPM PO 06/06/16 21:00 07/06/16 20:59 06/06/16 21:33 12.5 MG Nitroglycerin (Nitrostat Tab) 0.4 mg UD PRN SL 06/05/16 22:15 07/05/16 22:14 Pantoprazole Sodium (Protonix Tab) 40 mg DAILY PRN PO 06/05/16 22:15 07/05/16 22:14 Cholecalciferol (Vitamin D Tab) 2,000 inter.unit DAILY PO 06/06/16 09:00 07/06/16 08:59 06/06/16 07:56 2,000 INTER.UNIT Insulin Glargine (Lantus Solostar Pen) 80 unit DAILY SC 06/07/16 09:00 07/07/16 08:59 Lubiprostone (Amitiza) 24 mcg DAILY PRN PO 06/05/16 22:15 07/05/16 22:14 06/06/16 20:24 24 MCG Miscellaneous Information (Order Awaiting Action) 1 ea QS N/A 06/06/16 08:00 07/06/16 07:59 Cetirizine HCl (zyrTEC TAB) 10 mg DAILY PRN PO 06/06/16 04:45 07/06/16 04:44 Insulin Aspart (novoLOG ASPART) SLIDING SCALE G... ACHS SC 06/06/16 08:00 07/06/16 07:59 06/06/16 21:32 3 UNITS Nicotine (Nicoderm Cq 21MG Patch) 1 patch QAM TD 06/06/16 09:00 07/06/16 08:59 06/06/16 07:57 1 PATCH Miscellaneous (Remove Nicoderm Patch) 1 ea HS N/A 06/06/16 21:00 07/06/16 20:59 Albuterol/ Ipratropium (Duoneb) 3 ml Q4H PRN INH 06/05/16 22:30 07/05/16 22:29 Miscellaneous Information (Consult Glycemic Management Pharmacy) 1 ea UD PRN N/A 06/06/16 00:45 07/06/16 00:44 Morphine Sulfate (MoRPHine SULFATE IR TAB) 15 mg BID PRN PO 06/06/16 00:15 06/06/16 20:57 15 MG Ibuprofen (Advil Tab) 400 mg Q6H PRN PO 06/06/16 00:15 07/06/16 00:14 06/06/16 12:31 400 MG Ketorolac Tromethamine (Toradol Inj) 30 mg Q6H PRN IV 06/06/16 00:15 06/07/16 01:11 30 MG Lidocaine (Lidoderm Patch 5%) 1 patch HS TD 06/07/16 21:00 07/07/16 20:59 Miscellaneous (Remove Lidoderm Patch) 1 ea DAILY@0900 N/A 06/06/16 11:00 07/06/16 10:59 06/06/16 11:00 1 EA Hydromorphone HCl (Dilaudid Inj) 1 mg Q3H PRN IV 06/06/16 00:30 06/20/16 00:29 06/07/16 00:47 1 MG Cyclobenzaprine HCl 10 mg 10 mg TID PRN PO 06/06/16 00:45 07/06/16 00:44 Lorazepam/Syringe (Ativan Inj/ Syringe) 1 ml @ 1 mls/min Q4H PRN IV 06/06/16 01:00 07/06/16 00:59 06/07/16 01:02 1 MLS/MIN Nicotine Polacrilex (Nicorette 2MG Gum) 1 piece Q1H PRN MT 06/06/16 01:00 07/06/16 00:59 Morphine Sulfate (Ms Contin Tab) 60 mg HS PO 06/06/16 21:00 06/20/16 20:59 06/06/16 21:32 60 MG Glucose (Glucose 40% Gel) 15-30 GRAMS 15 GRAMS... UD PRN PO 06/06/16 04:45 07/06/16 04:44 Glucose (Glucose Chew Tab) 4-8 Tablets 4 Tabl... UD PRN PO 06/06/16 04:45 07/06/16 04:44 Dextrose (Dextrose 50% 50ML Syringe) 25-50ML OF 50% DW IV FOR... UD PRN IV 06/06/16 04:45 07/06/16 04:44 Glucagon (Glucagon Inj) 1 mg UD PRN SQ 06/06/16 04:45 07/06/16 04:44 Senna/Docusate Sodium (Senokot S Tab) 2 tab BID PO 06/06/16 09:00 07/06/16 08:59 Testosterone (Androgel Pump) 1 appl DAILY TD 06/07/16 09:00 07/07/16 08:59 Morphine Sulfate (Ms Contin Tab) 100 mg BID@0800,1400 PO 06/07/16 08:00 06/21/16 07:59 Review of Systems not performed d/t pt status Physical Exam Height & Weight: Height 5 feet, 7.00 inches. Weight 112.000 (Kilograms) 246 (Pounds) Last Vital Signs Documentation Date Time Temp Pulse Resp B/P Pulse Ox O2 Delivery O2 Flow Rate FiO2 06/07/16 07:52 36.6 84 20 146/82 98 CPAP 06/06/16 10:40 2.0 Laboratory / Imaging Results Laboratory Results (Last CBC): 06/05/16 18:20 Red Blood Count 4.58 L, Mean Corpuscular Volume 77.3 L, Mean Corpuscular Hemoglobin 24.5 L, Mean Corpuscular Hemoglobin Concent 31.6 L, Mean Platelet Volume 9.1, Neutrophils (%) (Auto) 76.8, Lymphocytes (%) (Auto) 11.8, Monocytes (%) (Auto) 9.9, Eosinophils (%) (Auto) 1.0, Basophils (%) (Auto) 0.1, Neutrophils # (Auto) 11.61 H, Lymphocytes # (Auto) 1.78, Monocytes # (Auto) 1.49 H, Eosinophils # (Auto) 0.15, Basophils # (Auto) 0.02 Assessment 1. Acute exacerbation of chronic LBP s/p L4-5 decomp fusion 05/30/16 2. Opiate dependence Recommendations 1. Pt was very frustrated and uncooperative during interview. After about 3-4 minutes he states "What do you know, you don't even do pain management!" I responded that I did practice pain medicine and he stated "No you don't." I asked him if he was declining the consult. He yelled "YES". I told him that I would recuse myself from his care and alert Dr. Germain. [employer] Voice Recognition This chart was completed in part utilizing [employer] Voice Recognition Software. Random word insertions, pronoun errors, and incomplete sentences are an occasional consequence of this system due to software limitations and ambient noise. Any questions or concerns about the content, text or information contained within the body of this dictation should be directly addressed to the provider for clarification.
[2016-06-07] MEDS: MORPHINE SULFATE 100 MG PO SCH ×2 (10:17→16:16)
[2016-06-07] MEDS: NICOTINE 21 MG/24 HR TDSY TD SCH (10:25)
[2016-06-07] MEDS: ASPIRIN 81 MG ECTAB PO SCH (10:25)
[2016-06-07] MEDS: CHOLECALCIFEROL 1000 INTER.UNIT TAB PO SCH (10:26)
[2016-06-07] MEDS: LISINOPRIL 5 MG TAB PO SCH (10:27)
[2016-06-07] MEDS: INSULIN ASPART 100 UNITS/ML 3 ML PEN SC SCH ×2 (10:40→13:11)
[2016-06-07] MEDS ORDERED: NURSING VERBAL MED ORDER ONE (11:00)
[2016-06-07] MEDS: MoRPHine SULFATE IR 15 MG TAB (IMMEDIATE RELEASE) PO PRN (11:37)
[2016-06-07 11:49] VITALS: BP 171/80; PULSE 92; TEMP 36.3; O2SAT 99
--- NOTE | 2016-06-07 12:09 | Discharge Instructions ---
Discharge Instructions Admission Reason for Admission: Chronic Back Pain Discharge Discharge Diagnosis / Problem: stenosis Discharge Goals Goal(s): Improve function Activity Recommendations Activity Limitations: per Instructions/Follow-up section . Instructions / Follow-Up Instructions / Follow-Up ACTIVITY RECOMMENDATIONS: SELF CARE INSTRUCTIONS AFTER THORACIC/LUMBAR FUSIONS 1. You may walk to your tolerance. It is good exercise for your legs and back. Expect some back and intermittent leg aches and pains. 2. You may perform "counter-top" level activities (make a sandwich, ayala with a project, etc.). 3. No bending or lifting of more than 10 pounds or back twisting of any nature (roll like a log when turning in bed). 4. You may ride in a car for 20-30 minutes at a time. No driving until after your first visit with your doctor. 5. Frequent changes of position and restricting sitting to 30 minutes at a time will help limit the amount of back spasms and stiffness you may experience. 6. You may discontinue the use of ambulatory aids (cane, crutches, etc.) once your strength and confidence allow. 7. You may supervisor receiving and processing the shower and let water strike your incision when you arrive home at least once daily. Do not take a tub bath, sit in a hot tub or go into a swimming pool until after your first recheck in the office. SPECIAL CARE INSTRUCTIONS: VERY IMPORTANT TO READ AND REVIEW A. Your surgical incision has been closed with a cosmetic suture under the skin that will dissolve in about 6 weeks. In 14 days, you can use a pair of clean scissors and cut the suture that is left outside of the skin at the ends of your incision. 1. The small skin tapes can be removed 7 days after surgery if they have not fallen off by that point. 2. You may keep the wound open to air as much as possible to promote healing after post-op day number 5 unless told otherwise by your doctor. 3. If you think the wound looks like it is becoming infected (redness or worsening drainage) and/or you are experiencing fever, chill or worsening back pain and muscle spasms, contact the office so that we may evaluate you as soon as possible. B. Complications are uncommon, but please contact us if you have any signs or symptoms of: 1. wound infection (fever higher than 102.5 degrees F, redness, separation of wound, drainage, or increasing pain from the incision) 2. blood clots in legs (pain, swelling, redness and warmth in legs) 3. urinary tract infection (fever higher than 102.5 degrees F, burning upon urination or increased frequency of urination) 4. nerve problems (inability to walk on your toes or heels, numbness, loss of bowel or bladder control) 5. any other symptoms that concern you C. Please call the office at if you have any concerns or questions about your operation or recovery. D. No smoking! Smoking drastically decreases the chance of a solid fusion. E. Do not take any anti-inflammatory medications (Indocin, Advil, Motrin, Aspirin, Naprosyn, etc.) as these may inhibit the chance of a solid fusion. Tylenol is okay to take for pain. MANAGING PAIN AFTER SPINAL SURGERY 1. Narcotic medication is intended for short-term use and will be provided for surgical pain. Surgical pain usually lasts for a period of 4-6 weeks. Narcotic medication includes Percocet, Vicodin, Darvocet, Tylenol #3 or Lortab. 2. Longer-term pain is more appropriately treated with non-narcotic medication such as Tylenol ES. 3. Muscle spasm is not appropriately treated with narcotics. Muscle relaxers such as Soma, Flexeril or Skelaxin can be used along with Tylenol ES. 4. Remember that we all live with some "aches and pains". This is not unusual or uncommon after an injury or as we get older. a. Back pain is expected and may include muscle spasms for 4 to 6 weeks after surgery. The pain should gradually improve. If the pain worsens for no apparent reason, please contact the office. b. Intermittent leg pain may also be experienced and should not be concerned about unless it worsens for no apparent reason. If so, please contact the office. 5. We will provide appropriate medication within the normal guidelines of their prescribed use. We will also be very cautious and aware of potential abuse and extended duration of patients' medication needs. a. Pain medications are for your comfort and to assist with sleep and rest so that the tissue can heal. They are not provided in order to return to normal activity and should not be used through the day. To do so or worsening pain at night can result from ongoing tissue damage and development of tolerance to the prescribed medicine. 6. Please allow 2-3 days to process refills. Prescriptions will not be mailed but must be picked up at the office. FOLLOW UP VISIT: Keep your scheduled follow-up appointment. Any questions, please call the office at . Current Hospital Diet Patient's current hospital diet: Diabetes Type 2 Diet Discharge Diet Recommended Diet: Regular Diet Pending Studies Studies pending at discharge: no Laboratory Results Hemoglobin A1c Test 05/31/16 07:36 Range/Units Estimated Average Glucose 197 mg/dl Hemoglobin A1c 8.5 H 4.5-5.6 % Lipid Panel Test 05/05/16 05:15 Range/Units Triglycerides Level 358 H 0-150 mg/dl Cholesterol Level 184 0-200 mg/dl HDL Cholesterol 32 mg/dl Cholesterol/HDL Ratio 5.8 LDL Cholesterol, Calculated 80 mg/dl Medical Emergencies . Who to Call and When: Medical Emergencies: If at any time you feel your situation is an emergency, please call 911 immediately. . Non-Emergent Contact Non-Emergency issues call your: Primary Care Provider . "Provider Documentation" section prepared by Yves Germain. VTE Core Measure Inpt VTE Proph given/why not?: Israel Rivas, SCD's
[2016-06-07 12:41] VITALS: PULSE 92; TEMP 36.3; O2SAT 99
[2016-06-07] MEDS: HYDROmorphone HCL 2 MG TAB PO PRN ×2 (13:12→16:59)
[2016-06-07 13:30] VITALS: BP 139/85
[2016-06-07 14:57] VITALS: BP 163/73; PULSE 93; TEMP 36.9; O2SAT 95
--- NOTE | 2016-06-07 17:01 | DISCHARGE SUMMARY ---
DATE OF DISCHARGE: 06/07/2016. PRINCIPAL DIAGNOSIS: Postoperative back pain. 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 He responded appropriately. Again, on exam the marked improvement of ability to ambulate. The incision clean, dry and intact. No erythema. Labs within normal limits. ASSESSMENT: Subsequently, the patient was discharged home with his regular medications as well as additional PO Dilaudid. Discharge orders and instructions can be found on the chart for review.
[2016-06-07] MEDS ORDERED: LIDODERM (LIDOCAINE) PATCH 5% TD SCH (21:00)
[2016-07-05] MEDS ORDERED: HYDR4TAB78 PO (08:52)
== END 2016-06-07 17:23 | disposition home or self-care (01) ==
LOC: ENRESERVTM → ENRESERVDT → C.EDB 15:52 → C.MSN 21:01
PROVIDERS: ADMIT Orthopaedic Surgery Orthopaedic Surgery of the Spine; ATTEND Orthopaedic Surgery Orthopaedic Surgery of the Spine
DX: G89.18 Other acute postprocedural pain (principal); M54.5 Low back pain; M79.604 Pain in right leg; J45.909 Unspecified asthma, uncomplicated; N40.0 Benign prostatic hyperplasia without lower urinary tract symptoms; E78.5 Hyperlipidemia, unspecified; I10 Essential (primary) hypertension; E11.9 Type 2 diabetes mellitus without complications; M48.06 Spinal stenosis, lumbar region; F17.200 Nicotine dependence, unspecified, uncomplicated; G47.33 Obstructive sleep apnea (adult) (pediatric); D75.1 Secondary polycythemia; Z82.49 Family history of ischemic heart disease and other diseases of the circulatory system; Z83.3 Family history of diabetes mellitus; Z79.82 Long term (current) use of aspirin; Z79.4 Long term (current) use of insulin; Z98.1 Arthrodesis status; F11.20 Opioid dependence, uncomplicated

== ENCOUNTER → 2017-08-03 | Outpatient (CLI) | payer BC ==
[~2017-08-03] MED LIST changes: -ATOR-54 PO; -CERTIZINE PO; +CETI10TA84 PO; +CHOL20009 PO; -METO25TA3 PO; +MORP-158 PO; +MORP100T53 PO; -MRPSR30 PO; -NCDT14 TD; -SILD100T PO; -[UNRECOGNIZED DRUG - CODE] PO
[2017-08-03 17:53] LABS: ALBUMIN 3.7 gm/dl (3.4-5.0); ALKALINE PHOSPHATASE 91 U/L (45-117); ALT/SGPT 27 U/L (12-78); AST/SGOT 11 U/L (15-37); BLOOD UREA NITROGEN 13 mg/dl (7-18); CARBON DIOXIDE 27 mmol/L (21-32); CHOLESTEROL 186 mg/dl (0-200); CREATININE 1.12 mg/dl (0.60-1.40); GLUCOSE 214 mg/dl (70-99); LDL CHOLESTEROL CALCULATED 111 mg/dl; SODIUM 133 mmol/L (136-145); TOTAL PROTEIN 7.3 gm/dl (6.4-8.2)
[2017-08-04 06:27] LABS: HEMOGLOBIN A1C 9.9 % (4.5-5.6)
== END | disposition home or self-care (01) ==
LOC: C.LAB 16:15
PROVIDERS: ATTEND Physician Assistant
DX: E11.9 Type 2 diabetes mellitus without complications (principal); E78.5 Hyperlipidemia, unspecified; I10 Essential (primary) hypertension; R80.9 Proteinuria, unspecified; E66.9 Obesity, unspecified; G47.33 Obstructive sleep apnea (adult) (pediatric); E55.9 Vitamin D deficiency, unspecified; E29.1 Testicular hypofunction

== ENCOUNTER 2019-03-13 23:36 | Observation (INO) ==
[2019-03-14 00:17] LABS: Basophils # (auto) 0.02 K/uL (0-0.2); Basophils % (auto) 0.1 %; Eosinophils # (auto) 0.12 K/uL (0-0.5); Eosinophils % (auto) 0.8 %; Hemoglobin 13.2 g/dL (14.0-18.0); Immature Granulocytes # (auto) 0.07 K/uL (0.00-0.02); Immature Granulocytes % (auto) 0.5 %; Lymphocytes # (auto) 3.27 K/uL (1.2-3.4); Lymphocytes % (auto) 22.6 %; Mean Corpuscular Hemoglobin 24.1 pg (25-34); Mean Corpuscular Hgb Conc 31.4 g/dL (32-36); Mean Corpuscular Volume 76.8 fL (80-100); Mean Platelet Volume 9.3 fL (7.4-10.4); Monocytes # (auto) 1.33 K/uL (0.11-0.59); Monocytes % (auto) 9.2 %; Neutrophils # (auto) 9.67 K/uL (1.4-6.5); Neutrophils % (auto) 66.8 %; Platelet Count 278 K/uL (130-400); RDW Coefficient of Variation 17.5 % (11.5-14.5); RDW Standard Deviation 49.3 fL (36.4-46.3); Red Blood Count 5.47 M/uL (4.7-6.1); White Blood Count 14.48 K/uL (4.8-10.8)
--- NOTE | 2019-03-14 00:28 | Emergency Department Note ---
Entered by Shelli Dewey acting as a scribe for Magy Pleitez DO History of Present Illness General Chief complaint: Tachycardia Stated complaint: RACING HEART Time Seen by Provider: 03/13/19 23:46 Source: patient History of Present Illness Provider complaint: tachycardia Onset (ago): hour(s) 9 Location: chest Severity: similar to prior episodes (more severe) Pain Consistency: + constant Maximum Pain Intensity: 8 Quality: + other (tachycardia) Relieved By: not by medication (metoprolol) Associated symptoms: + chest pain and + other (Positive left arm pain; Positive lightheadedness) Treatments prior to arrival: other (metoprolol) The patient, who is a 58 year old male with a medical history of Type II diabetes, albuminuria, polycythemia, and dyslipidemia, presents to the Emergency Room with complaints of constant tachycardia that started around 1400. The patient explains that he went to the [facility] to get his blood drawn earlier today. The patient reports that he had an extra 1/2 pint of blood drawn than normal procedure before his symptoms started. The patient explains that leonides rtly after he started experiencing tachycardia, chest pain, left arm pain and felt lightheaded. The patient explains that he took a half of his Metoprolol around 1800 that did not alleviate his symptoms. The patient states that his symptoms have been constant since he left his appointment. The patient explains that he usually goes to the well logging [facility] analysis captain to get his blood drawn when his hematocrit is 55 or over. The patient explains that he also knows to go to his well logging mud analysis captain when he experiences a headache, ringing in his ear, and feels flushed. The patient denies feeling these symptoms before his latest appointment. The patient states that his overproduction of red blood cells is due to his use of prolonged narcotics and testosterone. Pt states he has had chest pain in the past. He states these aren't necessarily related to exertion/activity. He states when he gets chest pain at home he lays down for about half an hour and then they go away. He has seen Dr. Johnson previously. He believes his last stress test was within the last 2 years. Pt states he has previously taken metoprolol for a racing heart. Pt states he did already take his evening medications. Home Medications Home Medications Medication Instructions Recorded Confirmed Type Novolog U-100 Insulin aspart 1 sliding scale dose SUBCUT TIDM 06/26/18 03/14/19 History Zyrtec 15 mg PO DAILY 06/26/18 03/14/19 History acetaminophen 650 mg PO Q6H PRN 06/26/18 03/14/19 History albuterol sulfate 2 puff INHALATION Q6H PRN 06/26/18 03/14/19 History aspirin [Aspir-81] 81 mg PO DAILY 06/26/18 03/14/19 History lisinopril 20 mg PO DAILY 06/26/18 03/14/19 History montelukast 10 mg PO PM 06/26/18 03/14/19 History morphine 100 mg PO Q12H 06/26/18 03/14/19 History nitroglycerin [Nitrostat] 1 tab SUBLINGUAL UD PRN 06/26/18 03/14/19 History cholecalciferol (vitamin D3) 25 2,000 units PO DAILY cap 01/28/19 03/14/19 History mcg (1,000 unit) capsule insulin glargine U-300 conc 300 100 units SUBCUT DAILY ml 01/28/19 03/14/19 History unit/mL (1.5 mL) subcutaneous pen linaclotide 145 mcg capsule 75 mcg PO QAM PRN 01/28/19 03/14/19 History metoprolol succinate 25 mg 12.5 mg PO QAM 01/28/19 03/14/19 History tablet,extended release 24 hr morphine 30 mg tablet,extended 30 mg PO .COMPLEX 01/28/19 03/14/19 History release pantoprazole 40 mg tablet,delayed 40 mg PO DAILY 01/28/19 03/14/19 History release testosterone 20.25 mg/1.25 gram 2 pump TOP DAILY #225 gm 01/28/19 03/14/19 Rx (1.62 %) transdermal gel pump Allergies Allergy/AdvReac Type Severity Reaction Status Date / Time adhesive Allergy Unknown SKIN Verified 03/14/19 00:33 RASH-WITH SOME TAPES clarithromycin Allergy Unknown DAMAGED Verified 03/14/19 00:33 LIVER PER PT-REQUIRED HOSPITALIZATION Uncoded Nonscreenable Allergy Intermediate PLASTICS: Uncoded 03/14/19 00:33 Allergen BLISTERS Past Med/Surg History Medical History Bundle branch block, bilateral Chronic back pain Degenerative disc disease Diabetes mellitus, type 2 On Insulin, A1C 8.5% Fusion of spine MULTIPLE LUMBARX2 GERD (gastroesophageal reflux disease) History of acute pancreatitis RELATED TO A STONE OBSTRUCTION, 10/2017 History of skin cancer S/P EXCISION OF SCALP Hypertension Irritable bowel syndrome (IBS) Migraine Obesity Post traumatic stress disorder Tachycardia Surgical History History of cardiac cath History of colonoscopy History of ERCP 11/2017 [facility] History of esophagogastroduodenoscopy (EGD) History of repair of rotator cuff LEFT SHOULDER History of surgery RT ELBOW History of tonsillectomy History of uvulopalatopharyngoplasty FOR TREATMENT OF AR Family History Other Diabetes Heart disease Hypertension Social History Preferred Language: [place] Communication Ability: Effective 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 and A total of 10 systems reviewed and were otherwise negative Physical Exam Vital Signs Vital Signs - 24 hr 03/13/19 23:41 03/13/19 23:50 03/13/19 23:51 Temperature 36.9 C Temperature Source Oral Pulse Rate 98 H 106 H 105 H Respiratory Rate 18 27 H 14 Respiratory Effort / Characteristics Non-Labored Spontaneous Respiratory Depth Normal Blood Pressure 158/82 H 187/152 H Blood Pressure Mean 107 160 Pulse Oximetry 96 Oxygen Delivery Method Room Air Sepsis Recent Fever Within 48 Hours No Sepsis Action Taken by Nursing No Action Required 03/13/19 23:55 03/14/19 00:00 03/14/19 00:30 Temperature Temperature Source Pulse Rate 104 H 99 H 104 H Respiratory Rate 24 20 17 Respiratory Effort / Characteristics Respiratory Depth Blood Pressure 181/78 H 127/64 118/66 Blood Pressure Mean 105 97 82 Pulse Oximetry Oxygen Delivery Method Sepsis Recent Fever Within 48 Hours Sepsis Action Taken by Nursing 03/14/19 00:31 03/14/19 01:00 03/14/19 01:01 Temperature Temperature Source Pulse Rate 103 H 99 H 96 H Respiratory Rate 19 20 17 Respiratory Effort / Characteristics Respiratory Depth Blood Pressure 125/61 Blood Pressure Mean 86 Pulse Oximetry 97 Oxygen Delivery Method Room Air Sepsis Recent Fever Within 48 Hours Sepsis Action Taken by Nursing 03/14/19 01:30 03/14/19 01:31 03/14/19 02:00 Temperature Temperature Source Pulse Rate 101 H 101 H 101 H Respiratory Rate 24 22 22 Respiratory Effort / Characteristics Respiratory Depth Blood Pressure 144/82 H Blood Pressure Mean 96 Pulse Oximetry Oxygen Delivery Method Sepsis Recent Fever Within 48 Hours Sepsis Action Taken by Nursing 03/14/19 02:26 03/14/19 02:30 03/14/19 02:31 Temperature Temperature Source Pulse Rate 91 H 98 H 102 H Respiratory Rate 14 21 21 Respiratory Effort / Characteristics Respiratory Depth Blood Pressure 150/58 H 144/79 H Blood Pressure Mean 80 99 Pulse Oximetry Oxygen Delivery Method Sepsis Recent Fever Within 48 Hours Sepsis Action Taken by Nursing 03/14/19 02:49 03/14/19 03:00 03/14/19 03:01 Temperature Temperature Source Pulse Rate 113 H 101 H 96 H Respiratory Rate 21 24 18 Respiratory Effort / Characteristics Respiratory Depth Blood Pressure 121/78 111/67 Blood Pressure Mean 91 88 Pulse Oximetry Oxygen Delivery Method Sepsis Recent Fever Within 48 Hours Sepsis Action Taken by Nursing GENERAL: alert, anxious appearing, well nourished, no distress, non-toxic EYE EXAM: normal conjunctiva, PERRL and EOM's grossly intact OROPHARYNX: no exudate, no erythema, lips, buccal mucosa, and tongue normal and mucous membranes are moist NECK: supple, no nuchal rigidity, no adenopathy, non-tender LUNGS: Clear to auscultation. Normal chest wall mechanics. No wheezes, rhonchi or rales. HEART: no murmurs, S1 normal and S2 normal ABDOMEN: abdomen soft, non-tender, normo-active bowel sounds, no masses, no rebound or guarding. BACK: Back is symmetrical on inspection and there is no deformity, no midline t enderness, no CVA tenderness. SKIN: no rashes and no bruising UPPER EXTREMITIES: upper extremities are grossly normal. FROM, nml pulses b/l. LOWER EXTREMITIES: No pitting edema. FROM, nml pulses b/l. NEURO EXAM: Normal sensorium, cranial nerves II-XII grossly intact, normal speech, no gross weakness of arms, no gross weakness of legs. Course Course 2348: Past medical records reviewed. The patient was evaluated in room B9. A complete history and physical exam was performed. 0031: I reassessed the patient and updated him on his results thus far. The patient's heart rate was in the 90s and his BP was 127/58. The patient mentioned that he uses CPAP every night and does continue to smoke. 0123: I updated the patient on the rest of his results. The patient states that he is still experiencing chest pains and palpitations. The patient denies dizziness or shortness of breath. 0156: I discussed the additional records that were reviewed with the patient. The patient is in agreement with the plan. 0208: I reviewed the patient's case with Dr. Tenorio, [facility]. He will evaluate the patient for further management. Consultations Consultation #1: I reviewed the patient's case with Dr. Tenorio [facility] ospitalist. He will evaluate the patient for further management. Time: 02:08 Administered Medications Aspirin (Ecotrin Ectab) 81 mg PO DAILY CHASITY Stop: 04/13/19 04:05 Last Admin: 03/14/19 05:28 Dose: 81 mg Documented by: [id number] Sodium Chloride (Nss 1000ml) 1,000 mls @ 100 mls/hr IV .Q10H ONE Stop: 03/14/19 13:16 Last Admin: 03/14/19 05:10 Dose: 100 mls/hr Documented by: [id number] Insulin Aspart (Novolog Flexpen) 0 units SC ACHS CHASITY Stop: 04/13/19 04:05 Last Admin: 03/14/19 05:25 Dose: 3 units Documented by: [id number] Cosigned by: [id number] Nicotine (Nicoderm Cq) 21 mg TD QAM CHASITY Stop: 04/13/19 03:14 Last Admin: 03/14/19 05:49 Dose: 21 mg Documented by: [id number] Discontinued Medications Acetaminophen (Tylenol) 1,000 mg PO NOW STA Stop: 03/14/19 02:29 Last Admin: 03/14/19 02:43 Dose: 1,000 mg Documented by: [id number] Magnesium Sulfate/Dextrose (Magnesium Sulfate / D5w) 1 gm in 100 mls @ 100 mls/hr IV ONE ONE Stop: 03/14/19 04:15 Last Infusion: 03/14/19 05:16 Dose: 0 mls/hr Documented by: [id number] Admin: 03/14/19 03:33 Dose: 100 mls/hr Documented by: [id number] Insulin Glargine (Lantus Solostar Pen) 30 units SC NOW STA Stop: 03/14/19 03:41 Last Admin: 03/14/19 03:50 Dose: 30 units Documented by: [id number] Cosigned by: [id number] Lidocaine (Lidoderm 5%) 1 patch TD NOW STA Stop: 03/14/19 02:29 Last Admin: 03/14/19 02:43 Dose: 1 patch Documented by: [id number] Lorazepam (Ativan) 0.5 mg PO NOW STA Stop: 03/14/19 03:16 Last Admin: 03/14/19 03:33 Dose: 0.5 mg Documented by: [id number] Metoprolol Succ[facility] ([facility] Xl) [facility] [place]: 04/13/19 02:24 Last Admin: 03/14/19 02:59 Dose: 12.5 mg Documented by: [id number] Metoprolol Succinate (Toprol Xl) 12.5 mg PO NOW STA Stop: 03/14/19 05:10 Last Admin: 03/14/19 05:34 Dose: 50 mg Documented by: [id number] Morphine Sulfate (Ms Contin) 30 mg PO NOW STA Stop: 03/14/19 02:37 Last Admin: 03/14/19 02:59 Dose: 30 mg Documented by: [id number] Nitroglycerin (Nitrostat) 0.4 mg SL NOW STA Stop: 03/14/19 02:36 Last Admin: 03/14/19 02:49 Dose: Not Given Documented by: [id number] Nitroglycerin (Nitrostat) Confirm Administered Dose 0.4 mg .ROUTE .STK-MED ONE Stop: 03/14/19 02:40 Last Admin: 03/14/19 02:44 Dose: 0.4 mg Documented by: [id number] Medical Decision Making Differential Diagnosis Differential diagnosis includes etiologies such as premature contractions, electrolyte abnormality, cardiac dysrhythmia, thyroid dysfunction, pulmonary embolism, infection, gastrointestinal, cardiac ischemia, aortic dissection, pulmonary embolism, pneumonia, pneumothorax, musculoskeletal, infections, pericarditis, myocarditis, esophageal rupture, gastrointestinal, as well as others were entertained. Medical Records Attestation: I reviewed the patient's medical records. Home Medications Current Medication List: was personally reviewed by me Laboratory Data Attestation: I reviewed the patient's lab results. Result diagrams: 03/14/19 05:17 03/13/19 23:47 Lab Results 03/13/19 03/13/19 03/13/19 Range/Units 23:47 23:47 23:47 WBC 14.48 H (4.8-10.8) K/uL RBC 5.47 (4.7-6.1) M/uL Hgb 13.2 L (14.0-18.0) g/dL Hct 42.0 (42-52) % MCV 76.8 L (80-100) fL MCH 24.1 L (25-34) pg MCHC 31.4 L (32-36) g/dL RDW Std Deviation 49.3 H (36.4-46.3) fL RDW Coeff of Ben 17.5 H (11.5-14.5) % Plt Count 278 (130-400) K/uL MPV 9.3 (7.4-10.4) fL Immature Gran % (Auto) 0.5 % Neut % (Auto) 66.8 % Lymph % (Auto) 22.6 % Dale % (Auto) 9.2 % Eos % (Auto) 0.8 % Baso % (Auto) 0.1 % Immature Gran # (Auto) 0.07 H (0.00-0.02) K/uL Neut # (Auto) 9.67 H (1.4-6.5) K/uL Lymph # (Auto) 3.27 (1.2-3.4) K/uL Dale # (Auto) 1.33 H (0.11-0.59) K/uL Eos # (Auto) 0.12 (0-0.5) K/uL Baso # (Auto) 0.02 (0-0.2) K/uL APTT (21.0-31.0) Seconds PTT Ratio D-Dimer 340 (0-500) ug/L FEU Sodium 137 (136-145) mmol/L Potassium 4.3 (3.5-5.1) mmol/L Chloride 101 (98-107) mmol/L Carbon Dioxide 29 (21-32) mmol/L Anion Gap 7.0 (3-11) BUN 16 (7-18) mg/dl Creatinine 1.36 (0.6-1.4) mg/dl Est Cr Clr Drug Dosing 70.0 ml/min Est GFR ( Amer) 66.9 Est GFR (Non-Af Amer) 57.8 BUN/Creatinine Ratio 11.9 (10-20) Glucose 223 H (70-99) mg/dl Calcium 8.7 (8.5-10.1) mg/dl Magnesium 1.9 (1.8-2.4) mg/dl Total Bilirubin 0.2 (0.2-1) mg/dl AST 14 L (15-37) U/L ALT 32 (12-78) U/L Alkaline Phosphatase 82 (45-117) U/L Troponin I < 0.015 (0-0.045) ng/ml NT-Pro-B Natriuret Pep 10 (0-900) pg/ml Total Protein 6.5 (6.4-8.2) gm/dl Albumin 3.3 L (3.4-5.0) gm/dl Globulin 3.2 (2.5-4.0) gm/dl Albumin/Globulin Ratio 1.0 (0.9-2) Lipase 118 (73-393) U/L Procalcitonin (0-0.5) ng/ml TSH 2.110 (0.300-4.500) uIu/ml 03/13/19 03/13/19 Range/Units 23:47 23:47 WBC (4.8-10.8) K/uL RBC (4.7-6.1) M/uL Hgb (14.0-18.0) g/dL Hct (42-52) % MCV (80-100) fL MCH (25-34) pg MCHC (32-36) g/dL RDW Std Deviation (36.4-46.3) fL RDW Coeff of Ben (11.5-14.5) % Plt Count (130-400) K/uL MPV (7.4-10.4) fL Immature Gran % (Auto) % Neut % (Auto) % Lymph % (Auto) % Dale % (Auto) % Eos % (Auto) % Baso % (Auto) % Immature Gran # (Auto) (0.00-0.02) K/uL Neut # (Auto) (1.4-6.5) K/uL Lymph # (Auto) (1.2-3.4) K/uL Dale # (Auto) (0.11-0.59) K/uL Eos # (Auto) (0-0.5) K/uL Baso # (Auto) (0-0.2) K/uL APTT 24.5 (21.0-31.0) Seconds PTT Ratio 0.9 D-Dimer (0-500) ug/L FEU Sodium (136-145) mmol/L Potassium (3.5-5.1) mmol/L Chloride (98-107) mmol/L Carbon Dioxide (21-32) mmol/L Anion Gap (3-11) BUN (7-18) mg/dl Creatinine (0.6-1.4) mg/dl Est Cr Clr Drug Dosing ml/min Est GFR ( Amer) Est GFR (Non-Af Amer) BUN/Creatinine Ratio (10-20) Glucose (70-99) mg/dl Calcium (8.5-10.1) mg/dl Magnesium (1.8-2.4) mg/dl Total Bilirubin (0.2-1) mg/dl AST (15-37) U/L ALT (12-78) U/L Alkaline Phosphatase (45-117) U/L Troponin I (0-0.045) ng/ml NT-Pro-B Natriuret Pep (0-900) pg/ml Total Protein (6.4-8.2) gm/dl Albumin (3.4-5.0) gm/dl Globulin (2.5-4.0) gm/dl Albumin/Globulin Ratio (0.9-2) Lipase (73-393) U/L Procalcitonin 0.06 (0-0.5) ng/ml TSH (0.300-4.500) uIu/ml Imaging Data Attestation: I personally reviewed and interpreted this imaging study as follows: My Impression: X-ray: I interpreted the following studies. Chest: A single view study of the chest was reviewed and was negative for cardiomegaly, focal infiltrate, effusion, pulmonary edema, or wide mediastinum. ECG Data Attestation: I personally reviewed and interpreted this ECG as follows: Indication: + tachycardia Rate (beats per minute): 114 Rhythm: + sinus tachycardia ECG Intervals/blocks: + Right Bundle branch block ECG [place]: + Left axis deviation ECG Findings: + PVCs and + Other (No acute ischemic changes) Blood Pressure Blood Pressure Findings: Normal blood pressure MDM Narrative Patient well-appearing and anxious here. Patient with multiple risk factors for coronary artery disease. Concern given chest pain, dizziness, trouble breathing, and left arm aching. Patient concerned about palpitations, patient did have a sinus tachycardia on the monitor however no other ectopy or dysrhythmia. Patient's labs reassuring and first troponin negative. Patient's chest x-ray unremarkable. Due to elevated heart score, I discussed with patient additional inpatient observation and management. He verbalized understanding and was in agreement. I do feel there is a component of chronic pain contributing to his sense of chest pain, palpitations, and anxiety. Patient seems very focused on his chronic back pain, his chronic pain medications, and is already involved in pain management. Patient's d-dimer negative. I do not suspect dissection, tamponade, mediastinitis, perforation, GI bleed. Patient's clinical exam not consistent with CHF. I do not suspect occult pneumonia. Patient was given Tylenol and a Lidoderm patch for his pain. Nitro was added for the chest pain component. We deferred additional pain management medications to the admitting hospitalist. Impression & Plan Chest pain, Obesity, Palpitations, Dyspnea, Hyperglycemia, Leukocytosis, Tobacco abuse, Chronic low back pain Discharge Plan Visit Data *Final* Discharge Date/Time: 03/14/19 03:55 Chief Complaint: Tachycardia Stated Complaint: RACING HEART ED Provider: Magy Pleitez Discharge Problem: Chest pain, Obesity, Palpitations, Dyspnea, Hyperglycemia, Leukocytosis, Tobacco abuse, Chronic low back pain Patient Disposition: Admitted As Inpatient Discharge Instructions Interventions: ED Discharge Assessment Last Done: 03/14/19 03:55 Risk - HEART Scoring HEART Score for Major Cardiac Events History: Moderately Suspicious EKG: Normal Age: 45-64 Years of Age Risk Factors: >2 Risk Factors Initial Troponin: Normal Limit Total Points: 4 Risk Level: Moderate Risk for Major Adverse Cardiac Event HEART Score Interpretation: Score interpretation (as per derivation study): HEART Adverse Cardiac Score Event Risk Management 0-3 0.9-1.7% In the HEART Score study, these patients were discharged. 4-6 12-16.6% In the HEART Score study, these patients were admitted to the hospital. 7-10 50-65% In the HEART Score study, these patients were candidates for early invasive measurements. Original Source: 1. Arnold AJ, Romeo BE, Cristel JEREMY. Chest pain in the emergency room: value of the HEART score. Neth Heart J. 2008; 16(6):191-6. Discharge Problem: Chest pain Qualifiers: Chest pain type: unspecified Qualified Code(s): R07.9 - Chest pain, unspecified Obesity Qualifiers: Obesity type: unspecified obesity type Obesity classification: unspecified obesity classification Serious obesity comorbidity presence: unspecified whether serious comorbidity present Qualified Code(s): E66.9 - Obesity, unspecified Dyspnea Qualifiers: Dyspnea type: shortness of breath Qualified Code(s): R06.02 - Shortness of breath Leukocytosis Qualifiers: Leukocytosis type: unspecified Qualified Code(s): D72.829 - Elevated white blood cell count, unspecified Chronic low back pain Qualifiers: Back pain laterality: bilateral Sciatica presence: without sciatica Qualified Code(s): M54.5 - Low back pain The scribe's documentation has been prepared under my direction and personally reviewed by me in its entirety. I confirm that the note above accurately reflects all work, treatment, procedures, and medical decision making performed by me.
[2019-03-14 00:35] LABS: Alanine Aminotransferase 32 U/L (12-78); Albumin Level 3.3 gm/dl (3.4-5.0); Aspartate Aminotransferase 14 U/L (15-37); BUN Creatinine Ratio 11.9 (10-20); Blood Urea Nitrogen 16 mg/dl (7-18); Calcium 8.7 mg/dl (8.5-10.1); Carbon Dioxide 29 mmol/L (21-32); Chloride 101 mmol/L (98-107); Est GFR (African American) 66.9; Est GFR (Non-African American) 57.8; Glucose 223 mg/dl (70-99); Lipase 118 U/L (73-393); Magnesium 1.9 mg/dl (1.8-2.4); Potassium 4.3 mmol/L (3.5-5.1); Sodium 137 mmol/L (136-145)
[2019-03-14 00:46] LABS: Alkaline Phosphatase 82 U/L (45-117); Bilirubin,Total 0.2 mg/dl (0.2-1); Globulin 3.2 gm/dl (2.5-4.0); NT Pro B Type Natriuretic Pept 10 pg/ml (0-900); Total Protein 6.5 gm/dl (6.4-8.2); Troponin I < 0.015 ng/ml (0-0.045)
[2019-03-14 01:11] LABS: D Dimer 340 ug/L FEU (0-500)
[2019-03-14] MEDS ORDERED: METOPROLOL SUCC 25MG EXT REL TAB PO SCH ×2 (02:25→09:00)
[2019-03-14] MEDS ORDERED: ACETAMINOPHEN 500 MG TAB PO STA (02:28)
[2019-03-14] MEDS ORDERED: LIDOCAINE 5% 1 PATCH TD STA (02:28)
[2019-03-14 02:34] LABS: Partial Thromboplastin Ratio 0.9; Partial Thromboplastin Time 24.5 Seconds (21.0-31.0)
[2019-03-14] MEDS ORDERED: NITROGLYCERIN SL 0.4 MG/TAB TAB SL STA (02:35)
[2019-03-14] MEDS ORDERED: MoRPHine SULFATE CR 15 MG TABCR PO STA (02:36)
[2019-03-14] MEDS ORDERED: NITROGLYCERIN SL 0.4 MG/TAB TAB ONE (02:39)
[2019-03-14] MEDS ORDERED: LORazepam 0.25 MG/0.5 ML VIAL IV PRN (03:15)
[2019-03-14] MEDS ORDERED: NICOTINE 21 MG/24 HR TDSY TD SCH (03:15)
[2019-03-14] MEDS ORDERED: LORazepam 0.5 MG TAB PO STA (03:15)
--- NOTE | 2019-03-14 03:15 | History & Physical Report ---
Date of Service March 14, 2019 Assessment & Plan (1) Chest pain: Secondary to hypertensive urgency secondary to anxiety Home beta-judit noncompliance Possible unstable angina hx nonocclusive CAD as per records hyperlipidemia, history statin intolerance, DM2 insulin-requiring, suboptimal control as of recent hemoglobin A1c 8.24 December 2018 (Patient admits to not being compliant with long-acting insulin Rx.) chronic back pain status post multiple surgeries on narcotics, patient following [facility] neurosurgeon currently asthma, stable ongoing tobacco abuse AR on CPAP hypogonadism on testosterone Rx, hx secondary polycythemia, intermittent outpatient phlebotomy as per records chronic anemia, hemoglobin at baseline OBS PCU Aspirin for secondary CAD prevention Continue home BP meds, may need titration Facilitate home beta-judit Rx, patient counseled about need to take medication regularly given history of nonocclusive CAD Anxiolytic as needed Follow troponin, IV heparin if with elevation TTE. Cardiology consult RE chest pain Update lipid profile Basal insulin, ISS BG goal 1 40-1 80, carb count coverage Judicious narcotic use for chronic pain Nicotine patch DVT prophylaxis. Lovenox subcu Full code History of Present Illness Chief Complaint: Chest pain, palpitations Primary Care Provider: Oswaldo Sampson MD History obtained from patient and records. Medical history significant for nonocclusive CAD (cardiac cath, 2017), hypertension, DM2 insulin-requiring, chronic back pain on narcotics, hyperlipidemia, history statin intolerance, asthma, ongoing tobacco abuse, AR on CPAP, skin cancer postsurgery, hypogonadism on testosterone Rx, hx secondary polycythemia intermittent outpatient phlebotomy as per records, chronic anemia (baseline hemoglobin of 13) . Recent confinement October 2017 for acute pancreatitis. Patient eventually had outpatient cholecystectomy. Patient was having outpatient phlebotomy for his polycythemia yesterday when he noticed that online facilitator took out more blood than basically do. Patient started experiencing palpitations, substernal discomfort going to the left arm and lightheadedness. Worsening symptoms noted at home. Patient does not check his blood pressure at home. Admits to not regularly taking prescribed beta-judit for CAD hx due to concerns about potential additional lowering of his heart rate which is narcotic meds for chronic back pain are known to do. At the ER, chest discomfort relieved by nitroglycerin administration. MEDICAL HISTORY: As above. SURGERIES: He has had back surgery, appendectomy, tonsillectomy, uvulectomy for sleep apnea, shoulder surgery, elbow surgery, cholecystectomy. FAMILY HISTORY: COPD. Heart disease PERSONAL AND SOCIAL HISTORY: One pack daily. No intake of alcoholic beverages. Disabled. Allergies Allergy/AdvReac Type Severity Reaction Status Date / Time adhesive Allergy Unknown SKIN Verified 03/14/19 00:33 RASH-WITH SOME TAPES clarithromycin Allergy Unknown DAMAGED Verified 03/14/19 00:33 LIVER PER PT-REQUIRED HOSPITALIZATION Uncoded Nonscreenable Allergy Intermediate PLASTICS: Uncoded 03/14/19 00:33 Allergen BLISTERS Home Medications Home Medications Medication Instructions Recorded Confirmed Type Novolog U-100 Insulin aspart 1 sliding scale dose SUBCUT TIDM 06/26/18 03/14/19 History Zyrtec 15 mg PO DAILY 06/26/18 03/14/19 History acetaminophen 650 mg PO Q6H PRN 06/26/18 03/14/19 History albuterol sulfate 2 puff INHALATION Q6H PRN 06/26/18 03/14/19 History aspirin [Aspir-81] 81 mg PO DAILY 06/26/18 03/14/19 History lisinopril 20 mg PO DAILY 06/26/18 03/14/19 History montelukast 10 mg PO PM 06/26/18 03/14/19 History morphine 100 mg PO Q12H 06/26/18 03/14/19 History nitroglycerin [Nitrostat] 1 tab SUBLINGUAL UD PRN 06/26/18 03/14/19 History cholecalciferol (vitamin D3) 25 2,000 units PO DAILY cap 01/28/19 03/14/19 History mcg (1,000 unit) capsule insulin glargine U-300 conc 300 100 units SUBCUT DAILY ml 01/28/19 03/14/19 History unit/mL (1.5 mL) subcutaneous pen linaclotide 145 mcg capsule 75 mcg PO QAM PRN 01/28/19 03/14/19 History metoprolol succinate 25 mg 12.5 mg PO QAM 01/28/19 03/14/19 History tablet,extended release 24 hr morphine 30 mg tablet,extended 30 mg PO .COMPLEX 01/28/19 03/14/19 History release pantoprazole 40 mg tablet,delayed 40 mg PO DAILY 01/28/19 03/14/19 History release testosterone 20.25 mg/1.25 gram 2 pump TOP DAILY #225 gm 01/28/19 03/14/19 Rx (1.62 %) transdermal gel pump Past Med/Surg History Medical History Bundle branch block, bilateral Chronic back pain Degenerative disc disease Diabetes mellitus, type 2 On Insulin, A1C 8.5% Fusion of spine MULTIPLE LUMBARX2 GERD (gastroesophageal reflux disease) History of acute pancreatitis RELATED TO A STONE OBSTRUCTION, 10/2017 History of skin cancer S/P EXCISION OF SCALP Hypertension Irritable bowel syndrome (IBS) Migraine Obesity Post traumatic stress disorder Tachycardia Surgical History History of cardiac cath History of colonoscopy History of ERCP 11/2017 [facility] History of esophagogastroduodenoscopy (EGD) History of repair of rotator cuff LEFT SHOULDER History of surgery RT ELBOW History of tonsillectomy History of uvulopalatopharyngoplasty FOR TREATMENT OF AR Family History Other Diabetes Heart disease Hypertension Social History Preferred Language: Japanese Communication Ability: Effective 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 Required: No Beliefs That Will Affect Care: None Current Living Situation: Family Current Living Situation Comment: [facility] Other Information That Helps Us Care for You: No Feels Safe at Home: Yes Safety Concerns: Feels Safe At This Time Smoking Status: Current every day smoker Tobacco Type: cigarettes ; Cigarettes Per Day: HX OF 1PPD X20 YEARS ; Second Hand Exposure: No ; Hx Alcohol Use: No Hx Substance Use: No Review of Systems Review of Systems: As per HPI, all 10 systems reviewed, usual back pain complaints, episodic constipation, all other ROS negative Physical Exam Physical Exam: GENERAL: Anxious, obese, slightly uncomfortable, no respiratory distress SKIN: Plethoric, warm HEENT: [place] palpebral conjunctivae, no ptosis, dry buccal mucosa NECK : Supple, short neck, no tenderness CHEST : CTA, no tenderness HEART : Tachycardic, no obvious murmurs ABDOMEN: Some distention, nontender BACK : Chronic low back tenderness EXTREMITIES : No LE swelling/tenderness, no other conspicuous deformities noted NEUROLOGIC : Coherent, no facial asymmetry, no other gross focality Results & Data Vital Signs (Past 12 Hours) Vital Signs Temp Pulse Resp BP Pulse Ox 03/14/19 00:31 103 H 19 97 03/14/19 00:30 104 H 17 118/66 03/14/19 00:00 99 H 20 127/64 03/13/19 23:55 104 H 24 181/78 H 03/13/19 23:51 105 H 14 03/13/19 23:50 106 H 27 H 187/152 H 03/13/19 23:41 36.9 C 98 H 18 158/82 H 96 Laboratory Results Laboratory Results WBC 14.48 K/uL (4.8-10.8) H 03/13/19 23:47 RBC 5.47 M/uL (4.7-6.1) 03/13/19 23:47 Hgb 13.2 g/dL (14.0-18.0) L 03/13/19 23:47 Hct 42.0 % (42-52) 03/13/19 23:47 MCV 76.8 fL (80-100) L 03/13/19 23:47 MCH 24.1 pg (25-34) L 03/13/19 23:47 MCHC 31.4 g/dL (32-36) L 03/13/19 23:47 RDW Std Deviation 49.3 fL (36.4-46.3) H 03/13/19 23:47 RDW Coeff of Ben 17.5 % (11.5-14.5) H 03/13/19 23:47 Plt Count 278 K/uL (130-400) 03/13/19 23:47 MPV 9.3 fL (7.4-10.4) 03/13/19 23:47 Immature Gran % (Auto) 0.5 % 03/13/19 23:47 Neut % (Auto) 66.8 % 03/13/19 23:47 Lymph % (Auto) 22.6 % 03/13/19 23:47 Gilliam % (Auto) 9.2 % 03/13/19 23:47 Eos % (Auto) 0.8 % 03/13/19 23:47 Baso % (Auto) 0.1 % 03/13/19 23:47 Immature Gran # (Auto) 0.07 K/uL (0.00-0.02) H 03/13/19 23:47 Neut # (Auto) 9.67 K/uL (1.4-6.5) H 03/13/19 23:47 Lymph # (Auto) 3.27 K/uL (1.2-3.4) 03/13/19 23:47 Gilliam # (Auto) 1.33 K/uL (0.11-0.59) H 03/13/19 23:47 Eos # (Auto) 0.12 K/uL (0-0.5) 03/13/19 23:47 Baso # (Auto) 0.02 K/uL (0-0.2) 03/13/19 23:47 APTT 24.5 Seconds (21.0-31.0) 03/13/19 23:47 PTT Ratio 0.9 03/13/19 23:47 D-Dimer 340 ug/L FEU (0-500) 03/13/19 23:47 Sodium 137 mmol/L (136-145) 03/13/19 23:47 Potassium 4.3 mmol/L (3.5-5.1) 03/13/19 23:47 Chloride 101 mmol/L (98-107) 03/13/19 23:47 Carbon Dioxide 29 mmol/L (21-32) 03/13/19 23:47 Anion Gap 7.0 (3-11) 03/13/19 23:47 BUN 16 mg/dl (7-18) 03/13/19 23:47 Creatinine 1.36 mg/dl (0.6-1.4) 03/13/19 23:47 Est Cr Clr Drug Dosing 70.0 ml/min 03/13/19 23:47 Est GFR ( Amer) 66.9 03/13/19 23:47 Est GFR (Non-Af Amer) 57.8 03/13/19 23:47 BUN/Creatinine Ratio 11.9 (10-20) 03/13/19 23:47 Glucose 223 mg/dl (70-99) H 03/13/19 23:47 Calcium 8.7 mg/dl (8.5-10.1) 03/13/19 23:47 Magnesium 1.9 mg/dl (1.8-2.4) 03/13/19 23:47 Total Bilirubin 0.2 mg/dl (0.2-1) 03/13/19 23:47 AST 14 U/L (15-37) L 03/13/19 23:47 ALT 32 U/L (12-78) 03/13/19 23:47 Alkaline Phosphatase 82 U/L (45-117) 03/13/19 23:47 Troponin I < 0.015 ng/ml (0-0.045) 03/13/19 23:47 NT-Pro-B Natriuret Pep 10 pg/ml (0-900) 03/13/19 23:47 Total Protein 6.5 gm/dl (6.4-8.2) 03/13/19 23:47 Albumin 3.3 gm/dl (3.4-5.0) L 03/13/19 23:47 Globulin 3.2 gm/dl (2.5-4.0) 03/13/19 23:47 Albumin/Globulin Ratio 1.0 (0.9-2) 03/13/19 23:47 Lipase 118 U/L (73-393) 03/13/19 23:47 Procalcitonin 0.06 ng/ml (0-0.5) 03/13/19 23:47 TSH 2.110 uIu/ml (0.300-4.500) 03/13/19 23:47 Diagnostic Findings Chest x-ray as per my interpretation atelectasis, cardiomegaly EKG as per my interpretation : Rate 115, sinus tachycardia, LAD, LAFB, RBBB, PVCs (1) Chest pain Chest pain type: unspecified Qualified Code(s): R07.9 - Chest pain, unspecified
[2019-03-14] MEDS ORDERED: MAGNESIUM SULFATE / D5W 1 GM/100 ML BAG IV ONE (03:16)
[2019-03-14] MEDS ORDERED: SODIUM CHLORIDE 0.9% 1000ML 1,000 ML IV ONE (03:17)
[2019-03-14] MEDS ORDERED: INSULIN GLARGINE SOLOSTAR 100 UNITS/ML 3 ML PEN SC STA (03:40)
[2019-03-14] MEDS ORDERED: CARBOHYDRATES FOR HYPOGLYCEMIA PO PRN (04:06)
[2019-03-14] MEDS ORDERED: GLUCOSE 10 TABS/TUBE PO PRN (04:06)
[2019-03-14] MEDS ORDERED: GLUCAGON FOR INJ 1 MG VIAL SQ PRN (04:06)
[2019-03-14] MEDS ORDERED: DEXTROSE 50% 50 ML SYRINGE IV PRN (04:06)
[2019-03-14] MEDS ORDERED: ASPIRIN 81 MG ECTAB PO SCH (04:06)
[2019-03-14] MEDS ORDERED: PROMETHAZINE HCL 12.5 MG in SODIUM CHLORIDE 0.9% 50 ML IV PRN (04:06)
[2019-03-14] MEDS ORDERED: GLUCOSE 40% GEL 15 GM TUBE PO PRN (04:06)
[2019-03-14] MEDS ORDERED: MoRPHine SULFATE 4 MG/ML 1 ML CARP\\VIAL IV PRN (04:06)
[2019-03-14] MEDS ORDERED: NITROGLYCERIN SL 0.4 MG/TAB TAB SL PRN (04:06)
[2019-03-14] MEDS ORDERED: MoRPHine SULFATE CR 15 MG TABCR PO PRN (04:06)
[2019-03-14] MEDS ORDERED: NON-FORMULARY MEDICATION (Acetaminophen 650 MG) PO PRN (04:06)
[2019-03-14] MEDS ORDERED: ACETAMINOPHEN 325 MG TAB PO PRN (04:06)
[2019-03-14] MEDS ORDERED: INSULIN ASPART 100 UNITS/ML 3 ML PEN SC SCH (04:06)
[2019-03-14] MEDS ORDERED: LINACLOTIDE 72 MCG CAPSULE PO PRN (05:06)
[2019-03-14] MEDS ORDERED: METOPROLOL SUCC 50MG EXT REL TAB PO STA (05:09)
[2019-03-14 05:40] LABS: Basophils # (auto) 0.04 K/uL (0-0.2); Basophils % (auto) 0.3 %; Eosinophils # (auto) 0.17 K/uL (0-0.5); Eosinophils % (auto) 1.2 %; Hematocrit (blood only) 43.2 % (42-52); Hemoglobin 13.3 g/dL (14.0-18.0); Immature Granulocytes # (auto) 0.04 K/uL (0.00-0.02); Immature Granulocytes % (auto) 0.3 %; Lymphocytes # (auto) 3.53 K/uL (1.2-3.4); Lymphocytes % (auto) 25.4 %; Mean Corpuscular Hemoglobin 23.7 pg (25-34); Mean Corpuscular Hgb Conc 30.8 g/dL (32-36); Mean Platelet Volume 9.2 fL (7.4-10.4); Monocytes # (auto) 1.41 K/uL (0.11-0.59); Monocytes % (auto) 10.2 %; Neutrophils % (auto) 62.6 %; Platelet Count 290 K/uL (130-400); RDW Coefficient of Variation 17.6 % (11.5-14.5); RDW Standard Deviation 49.6 fL (36.4-46.3); Red Blood Count 5.61 M/uL (4.7-6.1); White Blood Count 13.89 K/uL (4.8-10.8)
[2019-03-14 06:08] LABS: BUN Creatinine Ratio 14.9 (10-20); Blood Urea Nitrogen 18 mg/dl (7-18); Calcium 9.2 mg/dl (8.5-10.1); Carbon Dioxide 26 mmol/L (21-32); Chloride 103 mmol/L (98-107); Cholesterol 174 mg/dl (0-200); Creatinine Clr Calc Pharmacy 79.6 ml/min; Est GFR (African American) 77.1; Est GFR (Non-African American) 66.5; Glucose 225 mg/dl (70-99); Potassium 4.4 mmol/L (3.5-5.1); Sodium 136 mmol/L (136-145); Triglycerides 236 mg/dl (0-150); VLDL Cholesterol 47 mg/dl
--- NOTE | 2019-03-14 06:08 | XRay Report ---
XR chest 1V portable CLINICAL HISTORY: 58 years-old Male presenting with sob, cp. TECHNIQUE: Portable upright AP view of the chest was obtained. COMPARISON: 07/30/2018. FINDINGS: Cardiomediastinal silhouette normal. No focal opacity. No large effusion or pneumothorax. Evidence of resection of the distal left clavicle as on prior exam. Upper abdomen normal. IMPRESSION: 1. No acute cardiopulmonary disease. Electronically signed by: Ulices Craig M.D. 03/14/2019 6:06 AM
[2019-03-14 06:12] LABS: Chol HDL Ratio 5; HDL Cholesterol 35 mg/dl; LDL Cholesterol Calculated 92 mg/dl; Troponin I < 0.015 ng/ml (0-0.045)
[2019-03-14 06:34] LABS: Partial Thromboplastin Ratio 0.9; Partial Thromboplastin Time 25.1 Seconds (21.0-31.0)
[2019-03-14] MEDS ORDERED: MoRPHine SULFATE CR 100 MG TABCR PO SCH (08:00)
[2019-03-14] MEDS ORDERED: CHOLECALCIFEROL 1,000 UNITS TAB PO SCH (09:00)
[2019-03-14] MEDS ORDERED: DOCUSATE SODIUM/SENNA 50/8.6MG TAB PO SCH (09:00)
[2019-03-14] MEDS ORDERED: ENOXAPARIN INJ 40 MG/0.4 ML SYR SQ SCH (09:00)
[2019-03-14] MEDS ORDERED: CETIRIZINE HCL 10 MG TABLET PO SCH (09:00)
[2019-03-14] MEDS ORDERED: PANTOprazole 40 MG TAB PO SCH (09:00)
--- NOTE | 2019-03-14 10:40 | Cardiology Consultation ---
Date of Consultation March 14, 2019 Assessment & Plan (1) Polycythemia: (2) Chronic low back pain: (3) Tobacco abuse: (4) Chest pain: (5) Palpitations: (6) Dyspnea: (7) Anxiety: This is a 58-year-old male patient with a history of anxiety and chronic pain. He also has a history of secondary polycythemia for which he has phlebotomy completed when his hematocrit is above 45. The patient was undergoing phlebotomy yesterday. The first bag of blood was full but somehow clotted off so the put his second back on and feel that it is well. The patient felt like that was too much and he became anxious with shortness of breath and heart palpitations. He was brought to the emergency department. After admission his EKG is unchanged with a bifascicular block. His cardiac markers are negative. He is maintained a sinus rhythm throughout his hospital stay. It should be noted that he had a cardiac catheterization completed in 2017 that showed minor coronary artery disease. Patient states that he is felt well since admission. He does have an echocardiogram that was completed this morning which I will review however, I believe the patient may be discharged to outpatient follow-up. He does see Dr. Ga Johnson and has a scheduled appointment which she should keep. History of Present Illness Attending Physician: Aye Medeiros MD History of Present Illness This is a 58-year-old male patient who underwent a cardiac catheterization in 2016 that showed minor coronary artery disease. The patient was in his usual state of health. He has a history of secondary polycythemia for which he receives phlebotomy. Yesterday he underwent a phlebotomy and after first bag the catheter clotted off required an adjustment and a second bag. The patient states that after the second bag was removed he feels that they had taken too much off. He became anxious. His heart began to race. He was short of breath. Past medical history: 1.Low HDL-chol dyslipidemia with poor statin tolerance. 2.Chronic obstructive sleep apnea with nocturnal CPAP and O2 supplementation. 3.Secondary polycythemia with routine phlebotomy. 4.Minimal coronary atherosclerosis by cardiac catheterization in April of 2016. 5.Chronic back pain, narcotic dependent. 6.Diabetes mellitus, insulin requiring. 7.Conduction system disease with bifascicular block on EKG, right bundle- branch block, left anterior fascicular. Allergies Allergy/AdvReac Type Severity Reaction Status Date / Time adhesive Allergy Unknown SKIN Verified 03/14/19 00:33 RASH-WITH SOME TAPES clarithromycin Allergy Unknown DAMAGED Verified 03/14/19 00:33 LIVER PER PT-REQUIRED HOSPITALIZATION Uncoded Nonscreenable Allergy Intermediate PLASTICS: Uncoded 03/14/19 00:33 Allergen BLISTERS Home Medications Home Medications Medication Instructions Recorded Confirmed Type Novolog U-100 Insulin aspart 1 sliding scale dose SUBCUT TIDM 06/26/18 03/14/19 History Zyrtec 15 mg PO DAILY 06/26/18 03/14/19 History acetaminophen 650 mg PO Q6H PRN 06/26/18 03/14/19 History albuterol sulfate 2 puff INHALATION Q6H PRN 06/26/18 03/14/19 History aspirin [Aspir-81] 81 mg PO DAILY 06/26/18 03/14/19 History lisinopril 20 mg PO DAILY 06/26/18 03/14/19 History montelukast 10 mg PO PM 06/26/18 03/14/19 History morphine 100 mg PO Q12H 06/26/18 03/14/19 History nitroglycerin [Nitrostat] 1 tab SUBLINGUAL UD PRN 06/26/18 03/14/19 History cholecalciferol (vitamin D3) 25 2,000 units PO DAILY cap 01/28/19 03/14/19 History mcg (1,000 unit) capsule insulin glargine U-300 conc 300 100 units SUBCUT DAILY ml 01/28/19 03/14/19 History unit/mL (1.5 mL) subcutaneous pen linaclotide 145 mcg capsule 75 mcg PO QAM PRN 01/28/19 03/14/19 History metoprolol succinate 25 mg 12.5 mg PO QAM 01/28/19 03/14/19 History tablet,extended release 24 hr morphine 30 mg tablet,extended 30 mg PO .COMPLEX 01/28/19 03/14/19 History release pantoprazole 40 mg tablet,delayed 40 mg PO DAILY 01/28/19 03/14/19 History release testosterone 20.25 mg/1.25 gram 2 pump TOP DAILY #225 gm 01/28/19 03/14/19 Rx (1.62 %) transdermal gel pump Patient History Medical History Bundle branch block, bilateral Chronic back pain Degenerative disc disease Diabetes mellitus, type 2 On Insulin, A1C 8.5% Fusion of spine MULTIPLE LUMBARX2 GERD (gastroesophageal reflux disease) History of acute pancreatitis RELATED TO A STONE OBSTRUCTION, 10/2017 History of skin cancer S/P EXCISION OF SCALP Hypertension Irritable bowel syndrome (IBS) Migraine Obesity Post traumatic stress disorder Tachycardia Surgical History History of cardiac cath History of colonoscopy History of ERCP 11/2017 [facility] History of esophagogastroduodenoscopy (EGD) History of repair of rotator cuff LEFT SHOULDER History of surgery RT ELBOW History of tonsillectomy History of uvulopalatopharyngoplasty FOR TREATMENT OF AR Family History Other Diabetes Heart disease Hypertension Social History Preferred Language: Korean Communication Ability: Effective 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 Beliefs That Will Affect Care: None Current Living Situation: Family Current Living Situation Comment: [facility] Other Information That Helps Us Care for You: No Feels Safe at Home: Yes Safety Concerns: Feels Safe At This Time Smoking Status: Current every day smoker Tobacco Type: cigarettes ; Cigarettes Per Day: HX OF 1PPD X20 YEARS ; Second Hand Exposure: No ; Hx Alcohol Use: No Hx Substance Use: No Review of Systems Review of Systems: All systems reviewed & are unremarkable except as noted in HPI & below Nothing additional to add Physical Exam Physical Exam: General: no acute distress and stated age Head: normocephalic, no masses, lesions, tenderness or abnormalities Eyes: conjunctiva are pink and non-injected, sclera clear Neck: supple, no adenopathy, no bruits, normal jugular venous pulse, no hepatojugular reflux Chest: normal shape and normal respiratory effort Lungs: clear to auscultation and percussion Cardiac Exam: - regular rate & rhythm, no murmurs gallops or rubs - normal S1, normal S2 Pulses: 2(+) throughout Abdomen: abdomen soft, non-tender, no abnormal masses and no hepatosplenomegaly Musculoskeletal: no gait disturbance, no joint inflammation, no deforming arthritis Extremities: no edema and no cyanosis Neuro: grossly normal exam Results & Data Vital Signs (Past 12 Hours) Vital Signs Temp Pulse Pulse Resp BP BP Pulse Ox 03/14/19 07:55 36.7 C 95 H 19 135/78 92 03/14/19 05:28 91 H 03/14/19 04:07 37.0 C 88 18 174/73 H 95 03/14/19 03:55 94 H 18 130/80 98 03/14/19 03:01 96 H 18 03/14/19 03:00 101 H 24 111/67 03/14/19 02:49 113 H 21 121/78 03/14/19 02:31 102 H 21 03/14/19 02:30 98 H 21 144/79 H 03/14/19 02:26 91 H 14 150/58 H 03/14/19 02:00 101 H 22 03/14/19 01:31 101 H 22 03/14/19 01:30 101 H 24 144/82 H 03/14/19 01:01 96 H 17 03/14/19 01:00 99 H 20 125/61 03/14/19 00:31 103 H 19 97 03/14/19 00:30 104 H 17 118/66 03/14/19 00:00 99 H 20 127/64 03/13/19 23:55 104 H 24 181/78 H 03/13/19 23:51 105 H 14 03/13/19 23:50 106 H 27 H 187/152 H 03/13/19 23:41 36.9 C 98 H 18 158/82 H 96 Laboratory Results Laboratory Results - last 24 hr 03/13/19 03/13/19 03/13/19 23:47 23:47 23:47 WBC 14.48 H RBC 5.47 Hgb 13.2 L Hct 42.0 MCV 76.8 L MCH 24.1 L MCHC 31.4 L RDW Std Deviation 49.3 H RDW Coeff of Ben 17.5 H Plt Count 278 MPV 9.3 Immature Gran % (Auto) 0.5 Neut % (Auto) 66.8 Lymph % (Auto) 22.6 [place] % (Auto) 9.2 Eos % (Auto) 0.8 Baso % (Auto) 0.1 Immature Gran # (Auto) 0.07 H Neut # (Auto) 9.67 H Lymph # (Auto) 3.27 [place] # (Auto) 1.33 H Eos # (Auto) 0.12 Baso # (Auto) 0.02 APTT PTT Ratio D-Dimer 340 Sodium 137 Potassium 4.3 Chloride 101 Carbon Dioxide 29 Anion Gap 7.0 BUN 16 Creatinine 1.36 Est Cr Clr Drug Dosing 70.0 Est GFR ( Amer) 66.9 Est GFR (Non-Af Amer) 57.8 BUN/Creatinine Ratio 11.9 Glucose 223 H POC Glucose Calcium 8.7 Magnesium 1.9 Total Bilirubin 0.2 AST 14 L ALT 32 Alkaline Phosphatase 82 Troponin I < 0.015 NT-Pro-B Natriuret Pep 10 Total Protein 6.5 Albumin 3.3 L Globulin 3.2 Albumin/Globulin Ratio 1.0 Triglycerides Cholesterol LDL Cholesterol, Calc VLDL Cholesterol, Calc HDL Cholesterol Cholesterol/HDL Ratio Lipase 118 Procalcitonin TSH 2.110 03/13/19 03/13/19 03/14/19 23:47 23:47 05:17 WBC RBC Hgb Hct MCV MCH MCHC RDW Std Deviation RDW Coeff of Ben Plt Count MPV Immature Gran % (Auto) Neut % (Auto) Lymph % (Auto) [place] % (Auto) Eos % (Auto) Baso % (Auto) Immature Gran # (Auto) Neut # (Auto) Lymph # (Auto) [place] # (Auto) Eos # (Auto) Baso # (Auto) APTT 24.5 PTT Ratio 0.9 D-Dimer Sodium 136 Potassium 4.4 Chloride 103 Carbon Dioxide 26 Anion Gap 7.0 BUN 18 Creatinine 1.21 Est Cr Clr Drug Dosing 79.6 Est GFR ( Amer) 77.1 Est GFR (Non-Af Amer) 66.5 BUN/Creatinine Ratio 14.9 Glucose 225 H POC Glucose Calcium 9.2 Magnesium Total Bilirubin AST ALT Alkaline Phosphatase Troponin I < 0.015 NT-Pro-B Natriuret Pep Total Protein Albumin Globulin Albumin/Globulin Ratio Triglycerides 236 H Cholesterol 174 LDL Cholesterol, Calc 92 VLDL Cholesterol, Calc 47 HDL Cholesterol 35 Cholesterol/HDL Ratio 5 Lipase Procalcitonin 0.06 TSH 03/14/19 03/14/19 03/14/19 05:17 05:19 06:11 WBC 13.89 H RBC 5.61 Hgb 13.3 L Hct 43.2 MCV 77.0 L MCH 23.7 L MCHC 30.8 L RDW Std Deviation 49.6 H RDW Coeff of Ben 17.6 H Plt Count 290 MPV 9.2 Immature Gran % (Auto) 0.3 Neut % (Auto) 62.6 Lymph % (Auto) 25.4 [place] % (Auto) 10.2 Eos % (Auto) 1.2 Baso % (Auto) 0.3 Immature Gran # (Auto) 0.04 H Neut # (Auto) 8.70 H Lymph # (Auto) 3.53 H [place] # (Auto) 1.41 H Eos # (Auto) 0.17 Baso # (Auto) 0.04 APTT 25.1 PTT Ratio 0.9 D-Dimer Sodium Potassium Chloride Carbon Dioxide Anion Gap BUN Creatinine Est Cr Clr Drug Dosing Est GFR ( Amer) Est GFR (Non-Af Amer) BUN/Creatinine Ratio Glucose POC Glucose 211 H Calcium Magnesium Total Bilirubin AST ALT Alkaline Phosphatase Troponin I NT-Pro-B Natriuret Pep Total Protein Albumin Globulin Albumin/Globulin Ratio Triglycerides Cholesterol LDL Cholesterol, Calc VLDL Cholesterol, Calc HDL Cholesterol Cholesterol/HDL Ratio Lipase Procalcitonin TSH 03/14/19 07:18 WBC RBC Hgb Hct MCV MCH MCHC RDW Std Deviation RDW Coeff of Ben Plt Count MPV Immature Gran % (Auto) Neut % (Auto) Lymph % (Auto) [place] % (Auto) Eos % (Auto) Baso % (Auto) Immature Gran # (Auto) Neut # (Auto) Lymph # (Auto) [place] # (Auto) Eos # (Auto) Baso # (Auto) APTT PTT Ratio D-Dimer Sodium Potassium Chloride Carbon Dioxide Anion Gap BUN Creatinine Est Cr Clr Drug Dosing Est GFR ( Amer) Est GFR (Non-Af Amer) BUN/Creatinine Ratio Glucose POC Glucose 274 H Calcium Magnesium Total Bilirubin AST ALT Alkaline Phosphatase Troponin I NT-Pro-B Natriuret Pep Total Protein Albumin Globulin Albumin/Globulin Ratio Triglycerides Cholesterol LDL Cholesterol, Calc VLDL Cholesterol, Calc HDL Cholesterol Cholesterol/HDL Ratio Lipase Procalcitonin TSH Diagnostic Findings EKG shows bifascicular block and is unchanged from previous studies. Medications Administered Current Inpatient Medications Acetaminophen (Tylenol) 650 mg PO Q4H PRN PRN Reason: Pain or Fever Stop: 04/13/19 04:05 Aspirin (Ecotrin Ectab) 81 mg PO DAILY CHASITY Stop: 04/13/19 04:05 Last Admin: 03/14/19 05:28 Dose: 81 mg Documented by: Cetirizine HCl (Zyrtec) 15 mg PO DAILY [facility] Stop: 04/13/19 08:59 Last Admin: 03/14/19 08:08 Dose: 15 mg Documented by: Dextrose (Dextrose 50%) 25 - 50 ml IV UD PRN; Protocol PRN Reason: Hypoglycemia Protocol Stop: 04/13/19 04:05 Enoxaparin Sodium (Lovenox) 40 mg SQ QAM [facility] Stop: 04/13/19 08:59 Last Admin: 03/14/19 08:09 Dose: Not Given Documented by: Glucagon (Glucagen) 1 mg SQ UD PRN; Protocol PRN Reason: Hypoglycemia Protocol Stop: 04/13/19 04:05 Glucose (Dex4 Glucose) 4 - 8 tabs PO UD PRN; Protocol PRN Reason: Hypoglycemia Protocol Stop: 04/13/19 04:05 Glucose (Glucose 40%) 15 - 30 gm PO UD PRN; Protocol PRN Reason: Hypoglycemia Protocol Stop: 04/13/19 04:05 Lorazepam (Ativan) 0.25 mg in 0.5 mls @ 0.5 mls/min IV Q4H PRN PRN Reason: Anxiety Stop: 04/13/19 03:14 Sodium Chloride (Nss 1000ml) 1,000 mls @ 100 mls/hr IV .Q10H ONE Stop: 03/14/19 13:16 Last Admin: 03/14/19 05:10 Dose: 100 mls/hr Documented by: Promethazine HCl 12.5 mg/ (Sodium Chloride) 50.5 mls @ 202 mls/hr IV Q6H PRN PRN Reason: Nausea And Vomiting Stop: 04/13/19 04:05 Insulin Aspart (Novolog Flexpen) 0 units SC ACHS [facility] Stop: 04/13/19 04:05 Last Admin: 03/14/19 05:25 Dose: 3 units Documented by: Insulin Glargine (Lantus Solostar Pen) 30 units SQ BID [facility] Stop: 04/13/19 19:59 Linaclotide (Linzess) 72 mcg PO QAM PRN PRN Reason: Constipation Stop: 04/13/19 05:05 Lisinopril (Zestril) 20 mg PO HS [facility] Stop: 04/13/19 20:59 Metoprolol Succinate (Toprol Xl) 25 mg PO QAM [facility] Stop: 04/13/19 08:59 Last Admin: 03/14/19 08:08 Dose: 25 mg Documented by: Miscellaneous (Remove Lidoderm Patch) 1 ea N/A DAILY@2100 [facility] Stop: 04/13/19 20:59 Miscellaneous (Remove Nicoderm Patch) 1 ea N/A DAILY@0859 [facility] Stop: 04/13/19 08:58 Last Admin: 03/14/19 08:09 Dose: Not Given Documented by: Miscellaneous (Carbohydrates For Hypoglycemia) 15 - 30 gm PO UD PRN PRN Reason: Hypoglycemia Protocol Stop: 04/13/19 04:05 Montelukast Sodium (Singulair) 10 mg PO PM [facility] Stop: 04/13/19 20:59 Morphine Sulfate (Ms Contin) 100 mg PO Q12@0800,1400 [facility] Stop: 03/28/19 07:59 Last Admin: 03/14/19 08:07 Dose: 100 mg Documented by: Morphine Sulfate (Morphine Sulfate) 4 mg IV Q8H PRN PRN Reason: Pain Stop: 03/28/19 04:05 Morphine Sulfate (Ms Contin) 30 mg PO TID PRN PRN Reason: pain not relieved by other po meds Stop: 03/28/19 04:05 Nicotine (Nicoderm Cq) 21 mg TD QAM [facility] Stop: 04/13/19 03:14 Last Admin: 03/14/19 05:49 Dose: 21 mg Documented by: Nitroglycerin (Nitrostat) 0.4 mg SL UD PRN PRN Reason: Chest Pain Stop: 04/13/19 04:05 Pantoprazole Sodium (Protonix) 40 mg PO DAILY [facility] Stop: 04/13/19 08:59 Last Admin: 03/14/19 08:08 Dose: Not Given Documented by: Senna/Docusate Sodium (Senokot S) 1 tab PO QAM [facility] Stop: 04/13/19 08:59 Last Admin: 03/14/19 08:08 Dose: Not Given Documented by: Vitamin D (Vitamin D3) 2,000 units PO DAILY [facility] Stop: 04/13/19 08:59 Last Admin: 03/14/19 08:08 Dose: 2,000 units Documented by: (1) Chronic low back pain Back pain laterality: bilateral Sciatica presence: without sciatica Qualified Code(s): M54.5 - Low back pain; G89.29 - Other chronic pain (2) Chest pain Chest pain type: unspecified Qualified Code(s): R07.9 - Chest pain, unspecified (3) Dyspnea Dyspnea type: shortness of breath Qualified Code(s): R06.02 - Shortness of breath
[2019-03-14 11:13] VITALS: BP 128/77; PULSE 76; TEMP 97.9; O2SAT 93
--- NOTE | 2019-03-14 16:46 | Discharge Summary ---
Date of Service March 14, 2019 Admission HPI Per Admitting Provider History obtained from patient and records. Medical history significant for nonocclusive CAD (cardiac cath, 2017), hypertension, DM2 insulin-requiring, chronic back pain on narcotics, hyperlipidemia, history statin intolerance, asthma, ongoing tobacco abuse, AR on CPAP, skin cancer postsurgery, hypogonadism on testosterone Rx, hx secondary polycythemia intermittent outpatient phlebotomy as per records, chronic anemia (baseline hemoglobin of 13) . Recent confinement October 2017 for acute pancreatitis. Patient eventually had outpatient cholecystectomy. 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 Patient started experiencing palpitations, substernal discomfort going to the left arm and lightheadedness. Worsening symptoms noted at home. Patient does not check his blood pressure at home. Admits to not regularly taking prescribed beta-judit for CAD hx due to concerns about potential additional lowering of his heart rate which is narcotic meds for chronic back pain are known to do. At the ER, chest discomfort relieved by nitroglycerin administration. MEDICAL HISTORY: As above. SURGERIES: He has had back surgery, appendectomy, tonsillectomy, uvulectomy for sleep apnea, shoulder surgery, elbow surgery, cholecystectomy. FAMILY HISTORY: COPD. Heart disease PERSONAL AND SOCIAL HISTORY: One pack daily. No intake of alcoholic beverages. Disabled. Admission Exam Per Admitting Provider GENERAL: Anxious, obese, slightly uncomfortable, no respiratory distress SKIN: Plethoric, warm HEENT: [place] palpebral conjunctivae, no ptosis, dry buccal mucosa NECK : Supple, short neck, no tenderness CHEST : CTA, no tenderness HEART : Tachycardic, no obvious murmurs ABDOMEN: Some distention, nontender BACK : Chronic low back tenderness EXTREMITIES : No LE swelling/tenderness, no other conspicuous deformities noted NEUROLOGIC : Coherent, no facial asymmetry, no other gross focality Principal Diagnosis Chest pain Discharge Exam General: Obese, no acute distress and not ill appearing Eyes: PERRL, conjunctivae normal, not pale, anicteric sclerae, EOM intact bilaterally ENMT: External ear and nose normal, oropharynx normal Neck: Normal visual inspection, no tracheal deviation, no swelling noted Respiratory: Normal respiratory effort, no respiratory distress, lungs clear to auscultation, no crackles and no wheezes Cardiovascular: Pulse is RRR. S1S2 Chest (Breasts): Chest: normal inspection of chest , No tenderness Gastrointestinal (Abdomen): Abdomen is distended, soft, non-tender to pa lpation, no guarding, no palpable hepatosplenomegaly, normal bowel sounds Musculoskeletal: No cyanosis or clubbing, all extremities motor strength 5/5 Skin: No rash noted on gross inspection, No ulcers noted Neurologic: Alert and oriented x 3, No focal weakness, sensation grossly intact Psychiatric: Alert and oriented x 3, euthymic affect, no depressed affect Discharge Data Allergies Allergy/AdvReac Type Severity Reaction Status Date / Time adhesive Allergy Unknown SKIN Verified 03/14/19 00:33 RASH-WITH SOME TAPES clarithromycin Allergy Unknown DAMAGED Verified 03/14/19 00:33 LIVER PER PT-REQUIRED HOSPITALIZATION Uncoded Nonscreenable Allergy Intermediate PLASTICS: Uncoded 03/14/19 00:33 Allergen BLISTERS Consultations 03/14/19 04:06 Consult Cardiology Routine Hospital Course (1) Chest pain: Likely related to anxiety Home beta-judit noncompliance hx nonocclusive CAD as per records Reported chest discomfort started after phlebotomy yesterday when he felt the 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 EKG was unremarkable for ACS Troponin were negative Patient's symptoms resolved shortly after admission Discussed extensively with patient about smoking cessation and need for adherence to medication including beta judit Discussed plan with Toll Ticket Clerk Patient discharged to follow up with his PCP and Toll Ticket Clerk Total Time Total Time Spent Total Time Spent (In Minutes): 20 Total Time Includes: Examination of the Patient, Discharge Planning, Medication Reconciliation and Communication With Other Providers Discharge Plan Discharge Items Patient Disposition: Home - Self-Care Reason For Visit: Chest pain Discharge Diagnosis: Chest pain Condition on Discharge: Good Activity: Resume your previous activity Non-emergency contact: Primary Care Provider and Toll Ticket Clerk Call non-emergency contact if: you have any medication questions Follow-up/Referrals: Ga Johnson MD [Physician] - (Follow up on your appointment date) Oswaldo Sampson MD [Primary Care Provider] - Diet: Carb Consistent or DM2 and Heart Healthy Addtl Attending Provider Instructions: Mr Crust. Canales came to the hospital due to chest pain after getting phlebotomy yesterday. Your symptoms resolved shortly after admission. Your chest pain is thought to be related to anxiety due to concern that sand mill operator core sand removed much blood. You were admitted and evaluated overnight in the hospital. Evaluation with blood tests and EKG did not show features suggestive of heart attack. It is important that you take all your medications as prescribed including the metoprolol. Your hemoglobin level today was 13.3 Please ensure you keep follow up appointment with your Toll Ticket Clerk. You were also counselled on need to quit smoking. It was a pleasure taking care of you. Pending Studies at Discharge: Yes Studies:: Pending Echo report Stand-Alone Forms: My [facility], Smoking Cessation Medications and DC Order Prescriptions: Continued morphine 30 mg tablet extended release 30 mg PO .COMPLEX RF: 0 testosterone 20.25 mg/1.25 gram (1.62 %) gel in metered-dose pump 2 pump TOP DAILY Qty: 225 RF: 1 lisinopril 20 mg Tablet 20 mg PO DAILY RF: 0 aspirin [Aspir-81] 81 mg Tablet,Delayed Release (Dr/Ec) 81 mg PO DAILY RF: 0 morphine 100 mg Tablet Extended Release 100 mg PO Q12H RF: 0 Novolog U-100 Insulin aspart 100 unit/mL Solution 1 sliding scale dose SUBCUT TIDM RF: 0 nitroglycerin [Nitrostat] 0.4 mg Tablet, Sublingual 1 tab Sublingual UD PRN (Reason: CHESTPAIN) RF: 0 montelukast 10 mg Tablet 10 mg PO PM RF: 0 albuterol sulfate 90 mcg/actuation Hfa Aerosol Inhaler 2 puff INHALATION Q6H PRN (Reason: Wheezing) RF: 0 acetaminophen 325 mg Capsule 650 mg PO Q6H PRN (Reason: Pain) RF: 0 Zyrtec 10 mg Capsule 15 mg PO DAILY RF: 0 cholecalciferol (vitamin D3) [Vitamin D3] 1,000 unit capsule 2,000 units PO DAILY RF: 0 Toujeo SoloStar U-300 Insulin 300 unit/mL (1.5 mL) insulin pen 100 units SUBCUT DAILY RF: 0 Linzess 145 mcg capsule 75 mcg PO QAM PRN (Reason: Stomach Upset) RF: 0 metoprolol succinate 25 mg tablet extended release 24 hr 12.5 mg PO QAM RF: 0 pantoprazole 40 mg tablet,delayed release (DR/EC) 40 mg PO DAILY RF: 0 Discharge Orders: Discharge Order (Routine); Ordered 03/14/19 Ordered By: Aye Medeiros Admission Data Admit Date/Time: 03/14/19 03:22 Attending Provider: Aye Medeiros I. Admit Provider: Williams Anguiano Primary Care Provider: Oswaldo Sampson Other Providers: Ga Johnson Other Interventions: Discharge Summary Assessment (RN) Last Done: 03/14/19 10:50 DC Date/Time DO NOT enter until pt leaves facility: 03/14/19 12:45
[2019-03-14] MEDS ORDERED: INSULIN GLARGINE SOLOSTAR 100 UNITS/ML 3 ML PEN SQ SCH (20:00)
[2019-03-14] MEDS ORDERED: MONTELUKAST SODIUM 10 MG TABLET PO SCH (21:00)
[2019-03-14] MEDS ORDERED: LISINOPRIL 20 MG TAB PO SCH (21:00)
== END 2019-03-14 12:45 | disposition home or self-care (01) ==
LOC: 2S 23:36 → ED 23:36 → 2S 03-14 03:55

== ENCOUNTER 2022-02-17 09:27 | Observation (INO) ==
--- NOTE | 2022-02-17 11:00 | History & Physical Bridge Note ---
Date of Service February 17, 2022 History & Physical Bridge Note I have examined the patient, reviewed the History & Physical and in the interval since the performance of the History & Physical I have noted the following changes of clinical significance: no changes noted
--- NOTE | 2022-02-17 11:01 | Pre Anesthesia Assessment ---
Date of Service February 17, 2022 Pre Sedation Assessment Vital Signs Temp Pulse Resp BP Pulse Ox O2 Del Method 02/17/22 10:17 Room Air 02/17/22 10:17 36.5 C 93 H 18 186/79 H 97 Room Air Cardiovascular + regular rate and + regular rhythm + S1 normal and + S2 normal; no murmur no JVD + edema Respiratory + diminished lung sounds; no rhonchi and no wheezes Pre-Sedation Airway Assessment Smoking Status: Current every day smoker Hx Sleep Apnea: Yes Short, Thick Neck: Yes Thyromental Distance: > or= 3.5 Finger Breadths Oral Cavity: + WNL Mallampati Class: III ASA: ASA3 NPO Status Date of Last Intake of Fluids: 02/17/22 Time of Last Intake of Fluids: 07:00 Date of Last Intake of Solid Food: 02/16/22 Time of Last Intake of Solid Foods: 23:00 Procedure Planning Contraindications for Sedation: none Current Medications Reviewed: Yes Notes The planned sedation has been discussed with the patient. Informed Consent was obtained. I have identified the patient, determined the appropriateness of sedation and have assessed the patient immediately prior to the procedure. All medicine(s) and interventions are by my order.
[2022-02-17] MEDS ORDERED: niCARdipine HCL INJ 2.5 MG/ML 10 ML AMP ONE (11:04)
[2022-02-17] MEDS ORDERED: MIDAZOLAM HCL 1 MG/ML 2ML VIAL ONE (11:04)
[2022-02-17] MEDS ORDERED: fentaNYL citrate 100 MCG/2 ML VIAL ONE (11:04)
[2022-02-17] MEDS ORDERED: HEPARIN (PORCINE) 1000 UNIT/ML 10 ML (CATH LAB USE ONLY) ONE ×2 (11:04→12:31)
[2022-02-17] MEDS ORDERED: NITROGLYCERIN/D5W 100MCG/ML 20ML SYR ONE (11:05)
[2022-02-17] MEDS ORDERED: LIDOCAINE 1% LOCAL 20 ML VIAL ONE (11:09)
[2022-02-17] MEDS ORDERED: ADENOSINE IV SOLN 3 MG/ML 20 ML VIAL IV ONE (11:52)
[2022-02-17] MEDS ORDERED: TICAGRELOR 90 MG TAB ONE (12:24)
--- NOTE | 2022-02-17 12:44 | Post Anesthesia Assessment ---
Date of Service February 17, 2022 Post Sedation Assessment Vital Signs Temp Pulse Resp BP Pulse Ox O2 Del Method 02/17/22 10:17 Room Air 02/17/22 10:17 36.5 C 93 H 18 186/79 H 97 Room Air Recovery Score Activity: Moves 4 extremities Respiration: Deep Breath/Cough Circulation: +/-20% PreAnes Value Consciousness: Fully Awake Oxygen Saturation: O2 needed for >90% Discharge Sedation Level of Care: Phase I Post Sedation Plan On clinical assessment, the patient appears to have tolerated the sedation without complications. Patient is recovering as anticipated. Patient will continue to be monitored by nursing and may be discharged when sedation discharge criteria are met per below protocol. Upon Completions of procedure up to 15 minutes continue every 5 minute vital signs and the P.A.R. score; then discharge to a Phase I or Fast Track to Phase II per the following guidelines: * Discharge Patient to appropriate Phase II area if PAR is 8 or greater or return to pre- procedure baseline. The post - procedure orders will be as directed. * If PAR score is less than 8 or not return to pre-procedure baseline then patient will follow Phase I monitoring till PAR is reached for Phase II. The Phase I may be done in procedure room or may call to secure a Phase I area. * If naloxone or flumazenil are used for reversal, hold in Phase I for continued monitoring from when last reversal dose was given for a minimum of 60 minutes or longer pending the nurse and/or physician discretion of patient condition before discharge to Phase II. Please call the Sedation Physician to re-evaluate and complete post-note for discharge to Phase II area. Do NOT discharge from procedure sedation or Phase 1 until post- sedation evaluation note is complete by procedure /sedation MD Sedation Discharge Instructions to be given to the patient at discharge to home. [facility] Procedure Codes (Charges) Indication for Procedure Indication for procedure: angina. Sedation/Anesthesia Procedure 1: Sedation/Anesthesia: 22055 Mod Sedation by the same physician;Init15 Min Child Age 5 & Up Total Sedation Time (minutes): 15
--- NOTE | 2022-02-17 12:56 | Hospitalist Consultation ---
Date of Consultation February 17, 2022 History of Present Illness Reason for Consultation: Medical management Requesting Physician: Dr. Johnson Attending Physician: Ga Johnson MD History of Present Illness This is a 61 yo M with PMhx of HTN, CAD, HLD with statin intolerance, chronic diastolic CHF, DM II insulin dependant, COPD, emphysema, tobacco use, chronic respiratory failure with hypoxia, morbid obesity with BMI of 40.8, polycythemia vera, hypogonadism, diabetic polyneuropathy, BPH, chronic use of opioids, depression/anxiety. Patient presents to the hospital today for a routine heart cardiac catheterization. Allergies Allergy/AdvReac Type Severity Reaction Status Date / Time clarithromycin Allergy Severe DAMAGED Verified 11/25/21 15:26 LIVER PER PT-REQUIRED HOSPITALIZATION adhesive AdvReac Mild SKIN Verified 11/25/21 15:26 RASH-WITH SOME TAPES Uncoded Nonscreenable Allergy Intermediate PLASTICS: Uncoded 11/25/21 15:26 Allergen BLISTERS GLP-1RA AdvReac Unknown Hx of Uncoded 11/16/21 16:38 Pancreatitis Home Medications Medication Instructions Recorded Confirmed Type albuterol sulfate 90 mcg/actuation 2 puff inhalation Q6H PRN Wheezing 06/26/18 11/25/21 History aerosol inhaler montelukast 10 mg tablet 10 mg PO HS 06/26/18 11/25/21 History nitroglycerin 0.4 mg sublingual 1 tab sublingual UD PRN CHESTPAIN 06/26/18 11/25/21 History tablet (Nitrostat) linaclotide 145 mcg capsule 75 mcg PO QAM PRN Stomach Upset 01/28/19 11/25/21 History (Linzess) pantoprazole 40 mg tablet,delayed 40 mg PO HS PRN Acid Reflux 01/28/19 11/25/21 History release Oxygen Home #1 ea 04/30/19 11/25/21 History aspirin 81 mg tablet,delayed 81 mg PO HS 03/12/20 11/25/21 History release umeclidinium 62.5 mcg-vilanterol 1 inh inhalation DAILY 04/01/20 11/25/21 History 25 mcg/actuation powdr for inhalation (Anoro Ellipta) blood-glucose meter (OneTouch 08/14/20 11/25/21 History Verio Flex Meter) blood-glucose meter,continuous 02/03/21 11/25/21 History (Dexcom G6 Flux Core Welder misc) blood-glucose sensor (Dexcom G6 02/03/21 11/25/21 History Sensor device) blood-glucose transmitter (Dexcom 02/03/21 11/25/21 History G6 Transmitter device) cetirizine 10 mg capsule (Zyrtec) 10 mg PO BID 03/05/21 11/25/21 History cholecalciferol (vitamin D3) 25 3,000 unit PO HS 03/05/21 11/25/21 History mcg (1,000 unit) capsule (Vitamin D3) furosemide 20 mg tablet 20 mg PO QAM #90 tabs 05/11/21 11/25/21 Rx hydroxyzine pamoate 25 mg capsule 25 mg PO Q8H PRN anxiety 5 days 06/16/21 11/25/21 Rx (Vistaril) #15 caps blood sugar diagnostic #1,100 ea 07/13/21 11/25/21 Rx clindamycin phosphate 1 % lotion 1 applic topical DAILY #60 mL 07/13/21 11/25/21 Rx metoprolol succinate 25 mg 12.5 mg PO BID Other 08/04/21 11/25/21 History tablet,extended release 24 hr insulin aspart U-100 100 unit/mL 100 unit subcut .COMPLEX #90 mL 08/31/21 11/25/21 Rx (3 mL) subcutaneous pen (Novolog Flexpen U-100 Insulin aspart) insulin glargine U-300 conc 300 125 unit (0.4167 mL) subcut DAILY 08/31/21 11/25/21 Rx unit/mL (1.5 mL) subcutaneous pen #40.5 mL (Toujeo SoloStar U-300 Insulin) morphine 100 mg tablet,extended 100 mg PO Q12H 10/12/21 11/25/21 History release morphine 30 mg tablet,extended 30 mg PO Q12H 10/12/21 11/25/21 History release lisinopril 20 mg tablet 10 mg PO DAILY 11/16/21 11/25/21 History testosterone 20.25 mg/1.25 gram 3 pump topical DAILY #4 BTLS 02/16/22 Rx (1.62 %) transdermal gel pump Patient History Medical History Bundle branch block, bilateral Chronic back pain Chronic kidney disease (CKD) Degenerative disc disease Diabetes mellitus, type 2 Diverticular disease GERD (gastroesophageal reflux disease) History of acute pancreatitis History of basal cell carcinoma History of SCC (squamous cell carcinoma) of skin History of skin cancer Irritable bowel syndrome (IBS) Migraines Obesity Polycythemia, secondary Post traumatic stress disorder Sleep apnea SOBOE (shortness of breath on exertion) Tachycardia Tinea pedis Surgical History Fusion of spine History of appendectomy History of back surgery History of cardiac cath History of colonoscopy History of ERCP History of esophagogastroduodenoscopy (EGD) History of repair of rotator cuff History of surgery History of tonsillectomy History of uvulopalatopharyngoplasty S/P cholecystectomy Family History Other Diabetes Heart disease Hypertension Social History Smoking Status: Current every day smoker Tobacco Type: Cigarettes Second Hand Exposure: No; Hx Alcohol Use: No Hx Substance Use: No Preferred Language: Montenegrin Communication Ability: Effective Search Marketing Analyst Required: No Beliefs That Will Affect Care: None Current Living Situation: Spouse Current Living Situation Comment: [facility] Other Information That Helps Us Care for You: No Feels Safe at Home: Yes Safety Concerns: Feels Safe At This Time Assistive Devices: None Results & Data Results & Data ([facility]) Vital Signs (Past 12 Hours) Vital Signs Temp Pulse Resp BP Pulse Ox O2 Del Method 02/17/22 12:42 98 H 18 184/74 H 95 Room Air 02/17/22 10:17 Room Air 02/17/22 10:17 36.5 C 93 H 18 186/79 H 97 Room Air
--- NOTE | 2022-02-17 12:57 | Cardiac Catheterization ---
Cardiac Cath Procedure Brief Procedure Date February 17, 2022 Pre-Procedure Diagnosis Pre-Procedure Diagnosis: Angina AUC Score AUC Score: 8 Post-Procedure Diagnosis Post-Procedure Diagnosis: Severe CAD Procedure(s) Performed Procedure(s) Performed: Coronary Angiography and Left Heart Cath Coating Machine Helper Ga Johnson MD Shirt Turner(s) Liliana Caruso Estimated Blood Loss Estimated Blood Loss: <15cc Medication(s) Medication(s): Fentanyl (12.5 mcg IV), Heparin (5000 units IV), Lidocaine 1% (Local infiltration access site), Nicardipine (250 mcg intra-arterial after arterial sheath insertion) and Versed (1 mg IV) Preliminary Findings Left dominant coronary anatomy Eccentric ostial left anterior descending stenosis 70%, FFR positive Circumflex posterolateral branch, distal 70% Mildly elevated left end-diastolic pressure, 21 Recommendations Recommendations: PCI without planned CABG Specimens Specimens: None Fluids (cc crystalloids) Fluids (cc crystalloids): 70 Anesthesia Start time 1136, stop time 1157 Procedural Complication(s) None Disposition PCU
--- NOTE | 2022-02-17 13:07 | History & Physical Report ---
Date of Service February 17, 2022 Assessment & Plan (1) Chronic diastolic CHF (congestive heart failure): (2) CAD (coronary artery disease): (3) Hypertension: (4) Dyslipidemia: Plan: - S/p cardiac cath for stable angina - Pt very anxious on presentation, but denies cardiac complaints of chest pain, palpitations, flutter, and VSS s/p cardiac cath. Will allow Ativan 0.5 mg IV x 1 now for panic attack. Pt with hx of such. - Cardiology consulted - Continue baby aspirin, loaded with Brilinta - Continue metoprolol succinate 25 mg twice daily, Lasix 40 mg daily as per home medications, will give lasix 40 mg now with chest heaviness since missed am dose. (5) Polycythemia, secondary: Plan: - HCT 45.5 from outpt labs on 02/16 reviewed in [facility], discussed with Dr. Cox, outpatient oncologist who agrees for phlebotomy x 1 U today, likely to improve sensation of chest heaviness. Appreciate recs. (6) Tobacco abuse: Plan: - Tobacco cessation encouraged at bedside, nicotine patch ordered (7) Pulmonary emphysema: (8) COPD (chronic obstructive pulmonary disease): Plan: - Continue home inhalers - Continue O2 5-6 L during the day and CPAP at bedtime - Lasix 40 mg PO tab now since did not get morning meds (9) Opioid dependence: Plan: - PDMP reviewed: Follow with provider at [place] - Take morphine sulfate ER 100 mg TID last filled 01/11/22 and morphine sulfate IR 30 mg BID prn which is ordered and was discussed with the pharmacy. - There are prescriptions from 02/10 which are different compared to all other previous prescriptions, which appears to be a significant reduction in pain medication - this is likely an error, and pt states he has not picked up a new rx for this month yet. - Monitor closely with O2 - Bowel regimen with narcotic use, continue linaclotide 145 mg daily (10) Diabetic nephropathy associated with type 2 diabetes mellitus: Plan: -Home insulin regimen includes Toujeo 100 mg daily, insulin sliding scale with total daily dose of 100 mg NovoLog -Check A1c and lipid panel with a.m. labs -ISS with Accu-Cheks ACHS -Glycemic pharmacy consulted due to significant insulin needs - discussed with glycemic pharmacist - appreciate (11) Obesity: Plan: -BMI 40.8, diet and exercise to be encouraged throughout hospital stay and upon discharge DVT ppx:- teds, scds CODE: Full code Dispo: From home, likely to remain in the hospital x 1-2 days History of Present Illness Chief Complaint: Medical management Primary Care Provider: Oswaldo Sampson MD This is a 61-year-old male with PMHx of CAD, HTN, HLD, chronic diastolic CHF, COPD, pulmonary emphysema, asthma, chronic hypoxic respiratory failure, hypogonadism, polycythemia vera, GERD, chronic opioid dependence, and morbid obesity with a BMI of 40.8 Patient presented to the hospital for routine cardiac catheterization. Due to his complex medical comorbidities cardiology has asked for overnight observation. Pt reports feeling like he cant catch his breath, and is feeling like he could . Patient is extremely anxious, sitting at the side of the bed, shaking. He is repeating himself several times during our interview and asks his phone what his glucose level is at least 4 times. Oxygen was placed on the patient, at baseline he wears 5-6 L O2 at home, which improved his breath. I have ordered and 0.5 mg IV for his anxiety, and Lasix 40 mg now as he did not take it this morning dose at home. His arrives at bedside during my examination, and has glucose tablets with her and he takes 2. She is aware of his anxiety and panic attacks and confirms that this is one like he has had before. I will also order him a nicotine patch as he has not had a cigarette today and typically smokes 1ppd. Pt discussed that he is due for phlebotomy for polycythemia vera, and that when his HCT is above 45, his exterminator termite orders 1 U removal - I discussed with Dr. Cox (his outpt heme/onc) and he recommends 1 U phlebotomy. Pt also reports significant needs for morphine sulfate and wants to make sure this is ordered correctly. He too Morphine Sulfate ER 100 mg this morning AND Morphine sulfate IR 30 mg this morning. Pt is calmer after my visit, both he and his are satisfied with treatment plan. Allergies Allergy/AdvReac Type Severity Reaction Status Date / Time clarithromycin Allergy Severe DAMAGED Verified 11/25/21 15:26 LIVER PER PT-REQUIRED HOSPITALIZATION adhesive AdvReac Mild SKIN Verified 11/25/21 15:26 RASH-WITH SOME TAPES Uncoded Nonscreenable Allergy Intermediate PLASTICS: Uncoded 11/25/21 15:26 Allergen BLISTERS GLP-1RA AdvReac Unknown Hx of Uncoded 11/16/21 16:38 Pancreatitis Home Medications Medication Instructions Recorded Confirmed Type albuterol sulfate 90 mcg/actuation 2 puff inhalation Q6H PRN Wheezing 06/26/18 02/17/22 History aerosol inhaler montelukast 10 mg tablet 10 mg PO HS 06/26/18 02/17/22 History nitroglycerin 0.4 mg sublingual 1 tab sublingual UD PRN CHESTPAIN 06/26/18 02/17/22 History tablet (Nitrostat) pantoprazole 40 mg tablet,delayed 40 mg PO HS PRN Acid Reflux 01/28/19 02/17/22 History release Oxygen Home #1 ea 04/30/19 02/17/22 History aspirin 81 mg tablet,delayed 81 mg PO HS 03/12/20 02/17/22 History release blood-glucose meter (ScreenburnTouch 08/14/20 02/17/22 History Verio Flex Meter) blood-glucose meter,continuous 02/03/21 02/17/22 History (Dexcom G6 Assisted Living Home Director misc) blood-glucose sensor (Dexcom G6 02/03/21 02/17/22 History Sensor device) blood-glucose transmitter (Dexcom 02/03/21 02/17/22 History G6 Transmitter device) cetirizine 10 mg capsule (Zyrtec) 10 mg PO DAILY 03/05/21 02/17/22 History cholecalciferol (vitamin D3) 25 3,000 unit PO HS 03/05/21 02/17/22 History mcg (1,000 unit) capsule (Vitamin D3) hydroxyzine pamoate 25 mg capsule 25 mg PO Q8H PRN anxiety 5 days 06/16/21 02/17/22 Rx (Vistaril) #15 caps blood sugar diagnostic #1,100 ea 07/13/21 02/17/22 Rx metoprolol succinate 25 mg 25 mg PO BID Other 08/04/21 02/17/22 History tablet,extended release 24 hr insulin aspart U-100 100 unit/mL 100 unit subcut .COMPLEX #90 mL 08/31/21 02/17/22 Rx (3 mL) subcutaneous pen (Novolog Flexpen U-100 Insulin aspart) insulin glargine U-300 conc 300 125 unit (0.4167 mL) subcut DAILY 08/31/21 02/17/22 Rx unit/mL (1.5 mL) subcutaneous pen #40.5 mL (Toujeo SoloStar U-300 Insulin) morphine 100 mg tablet,extended 100 mg PO TID 10/12/21 02/17/22 History release testosterone 20.25 mg/1.25 gram 3 pump topical DAILY #4 BTLS 02/16/22 02/17/22 Rx (1.62 %) transdermal gel pump furosemide 20 mg tablet 40 mg PO QAM 02/17/22 02/17/22 History linaclotide 145 mcg capsule 145 mcg PO DAILY 02/17/22 02/17/22 History morphine 30 mg immediate release 30 mg PO BID PRN Severe Pain 02/17/22 02/17/22 History tablet (Scale Score 7-10) Past Med/Surg History Medical History Bundle branch block, bilateral Chronic back pain Chronic kidney disease (CKD) Degenerative disc disease Diabetes mellitus, type 2 Diverticular disease GERD (gastroesophageal reflux disease) History of acute pancreatitis RELATED TO A STONE OBSTRUCTION, 10/2017 History of basal cell carcinoma History of SCC (squamous cell carcinoma) of skin History of skin cancer S/P EXCISION OF SCALP Irritable bowel syndrome (IBS) Migraines Obesity Polycythemia, secondary Post traumatic stress disorder Sleep apnea CPAP WITH 4-5 L/MIN HS. S/P UPPP. SOBOE (shortness of breath on exertion) Tachycardia Tinea pedis Surgical History Fusion of spine MULTIPLE LUMBARX2 History of appendectomy History of back surgery History of cardiac cath 2017-NO STENTS History of colonoscopy History of ERCP 11/2017 [facility] History of esophagogastroduodenoscopy (EGD) History of repair of rotator cuff LEFT SHOULDER History of surgery RT ELBOW History of tonsillectomy History of uvulopalatopharyngoplasty FOR TREATMENT OF AR S/P cholecystectomy Family History Other COPD (chronic obstructive pulmonary disease) Cancer Diabetes Heart disease Hypertension Social History Smoking Status: Current every day smoker Tobacco Type: Cigarettes packs per day: 1; Second Hand Exposure: No; Hx Alcohol Use: No Hx Substance Use: No Preferred Language: Moldovan Communication Ability: Effective Sales And Merchandising Associate Required: No Beliefs That Will Affect Care: None Current Living Situation: Spouse Current Living Situation Comment: [facility] Other Information That Helps Us Care for You: No Feels Safe at Home: Yes Safety Concerns: Feels Safe At This Time Assistive Devices: None Review of Systems Review of Systems: Constitutional: No fever, sweats or chills Eyes: No diplopia, no worsening or blurred vision ENT: normal hearing, no trouble swallowing Respiratory:As per HPI, + chest heaviness, No cough, sputum, dyspnea at rest or on exertion, Breathing is improved with supplemental O2, pt was 97% on RA prior to placement Cardiovascular: No chest pain, tightness or palpitations Abdomen: No pain, nausea, vomiting, diarrhea or constipation Musculoskeletal: No joint pain, calf pain, swelling Neurologic: No weakness, numbness/tingling, or balance problems Psychiatric: No anxiety or depression Skin: No rash or itch Physical Exam Physical Exam: General: awake, alert, + anxious, + obese with BMI of 40.8 Head: Normocephalic, atraumatic ENT: PERRL, EOMI, no pharyngeal exudate, mucous membranes moist Chest: Clear to auscultation, on room at 97% -- placed on O2 at 2-3L for comfort at bedside, titrate, wears 5-6 L at baseline at home, no adventitious breath sounds Cardiac: Nontender to palpation, Regular rate and rhythm, no murmur, no JVD, normal peripheral pulses, good capillary refill Abdominal: NABS x 4 quadrants, soft, nondistended, nontender to palpation, no rebound or guarding Extremities: Normal inspection, 1+ pitting peripheral edema bilaterally, no erythema, calfs nontender to palpation Psych: Normal mood and affect Skin: + redness of face and skin diffuse, no rash or itch, appears like polycyt hemia and needs blood letting Neuro: AAO x 3, strength intact bilaterally and rated 5/5, no motor deficits, speech is clear, no peripheral sensory deficits Results & Data Results & Data ([facility]) Vital Signs (Past 12 Hours) Vital Signs Temp Pulse Resp BP Pulse Ox O2 Del Method 02/17/22 12:58 89 18 178/78 H 95 Room Air 02/17/22 12:42 98 H 18 184/74 H 95 Room Air 02/17/22 10:17 Room Air 02/17/22 10:17 36.5 C 93 H 18 186/79 H 97 Room Air Code Status & VTE Plan Code Status Full code VTE Prophylaxis Plan VTE Prophylaxis will be ordered: Yes Supervising Physician Co-Signing Physician Notes Patient is a 61-year-old male with multiple comorbidities presented for an elective cardiac catheterization. Cardiac catheterization showed left dominant coronary anatomy, eccentric ostial, proximal left anterior descending stenosis 70%, circumflex posterolateral branch, distal 70%, mildly elevated left end- diastolic pressure. Post catheterization, patient feels anxious and states having some shortness of breath and reports being due for his chronic pain medications. He denies any chest pain, nausea, abdominal pain but admits to have some dizziness. On exam patient is morbidly obese, mild distress, normocephalic/atraumatic, EOMI, decreased breath sounds, clear to auscultation, S1-S2, no murmur, 2+ pedal edema bilaterally, abdomen soft, nontender, normal bowel sounds, alert, awake, oriented, grossly no focal deficits. Patient will be observed overnight and managed for his chronic medical problems. Insulin per protocol for managing diabetes mellitus. Agree with checking lipid panel and A1c. Counseled to quit smoking. Continue home oxygen and CPAP. Nebs as needed. Appreciate cardiology help. Will get 1 unit therapeutic phlebotomy for polycythemia as recommended by his oncologist Dr. Cox. I personally reviewed the record. Patient is interviewed and examined at bedside. Patient's care is coordinated with Luzmaria Mead PA-C. Please refer to the documentation above for details of patient's presentation and for discussion of other issues. (1) Hypertension Hypertension type: unspecified Qualified Code(s): I10 - Essential (primary) hypertension
[2022-02-17] MEDS ORDERED: GLUCAGON FOR INJ 1 MG VIAL SQ PRN (13:19)
[2022-02-17] MEDS ORDERED: PHARMACY GLYCEMIC MGMT CONSULT PRN (13:19)
[2022-02-17] MEDS ORDERED: GLUCOSE 10 TAB/TUBE PO PRN (13:19)
[2022-02-17] MEDS ORDERED: ONDANSETRON INJ 2 MG/ML 2 ML VIAL IV PRN (13:19)
[2022-02-17] MEDS ORDERED: GLUCOSE 40% GEL 15 GM TUBE PO PRN (13:19)
[2022-02-17] MEDS ORDERED: CARBOHYDRATES FOR HYPOGLYCEMIA PO PRN (13:19)
[2022-02-17] MEDS ORDERED: DEXTROSE 50% 50 ML SYRINGE IV PRN (13:19)
[2022-02-17] MEDS ORDERED: ALBUTEROL HFA 8 GM INHALER INH PRN (13:23)
[2022-02-17] MEDS ORDERED: PANTOprazole 40 MG TAB PO PRN (13:23)
[2022-02-17] MEDS ORDERED: NITROGLYCERIN SL 0.4 MG/TAB TAB SL PRN (13:23)
[2022-02-17] MEDS ORDERED: hydrOXYzine HCl 25 MG TAB PO PRN (13:23)
[2022-02-17] MEDS ORDERED: NON-FORMULARY MEDICATION (Insulin Aspart U-100 [Novolog Flexpen U-100 Insulin] 100 unit/mL SQ SCH (13:30)
[2022-02-17] MEDS ORDERED: MORPHINE 100 MG PO SCH (13:30)
[2022-02-17] MEDS ORDERED: NON-FORMULARY MEDICATION (Oxygen Home Liters per Minute) SCH (13:30)
[2022-02-17] MEDS ORDERED: NON-FORMULARY MEDICATION (Morphine 30 mg tablet extended release) PO SCH (13:30)
--- NOTE | 2022-02-17 13:49 | Cardiac Catheterization ---
Cardiac Cath Procedure Full Procedure Date February 17, 2022 Pre-Procedure Diagnosis Pre-Procedure Diagnosis: Angina AUC Score AUC Score: 8 Post-Procedure Diagnosis Post-Procedure Diagnosis: Severe CAD Procedure(s) Performed Procedure(s) Performed: Coronary Angiography and Left Heart Cath Fermentation Engineer Ga Johnson MD Transportation Maintenance Specialist(s) Liliana Caruso Estimated Blood Loss Estimated Blood Loss: <15cc Medication(s) Medication(s): Fentanyl (12.5 mcg IV), Heparin (5000 units IV), Lidocaine 1% (Local infiltration access site), Nicardipine (250 mcg intra-arterial after arterial sheath insertion) and Versed (1 mg IV) Summary of Findings Left dominant coronary anatomy Eccentric ostial, proximal left anterior descending stenosis 70%, FFR positive Circumflex posterolateral branch, distal 70% Mildly elevated left end-diastolic pressure, 21 Procedure: Left heart catheterization, coronary angiography Access: Right radial artery without difficulty Catheters: 6 Vincentian long glide sheath, 5 Vincentian [place]ober[place], 5 Vincentian straight pigtail Coronary angiography: Left dominant coronary anatomy Left main: Normal length and caliber no disease Left anterior descending: Type III in distribution. It gives rise to a tiny first diagonal branch a moderate sized second diagonal branch opposite of a large septal and a third small diagonal branch in its midportion. There is a long eccentric lesion in the very proximal left anterior descending of 70% or greater Left circumflex: Large and dominant distribution. Gives rise to a large obtuse marginal and 2 small second and third marginal branches before turning along the AV groove. It then gives rise to a large posterolateral branch, a small posterolateral branch and a small posterior descending artery. Within the left circumflex there are moderate irregularities. The large first posterolateral branch has a smooth 60 to 70% stenosis in its midportion. Right coronary artery: Small nondominant vessel consisting of an atrial branch and 2 right ventricular branches with mild luminal irregularity LV angiography: Not performed left ventricular end-diastolic pressure 21 Hemodynamics Rest Ao:: 169/76/113 Final Ao: 158/67/102 LV: 164/-2/21 Recommendations Recommendations: PCI without planned CABG Specimens Specimens: None Radiation Exposure (mGy) 919 Contrast (mls) 80 Fluids (cc crystalloids) Fluids (cc crystalloids): 70 Anesthesia Start time 1136, stop time 1157 Procedural Complication(s) None Disposition PCU I attest to the content of the Intraoperative Record and any orders documented therein. Any exceptions are noted below. [facility] Data: Service Observer Cardiac Status Clinical evaluation leading to the procedure 61-year-old male with recent episodes of chest pain resulting in ER presentation chronic underlying pulmonary issues and dyspnea Referred for cardiac catheterization to assess symptoms consider right heart catheterization if no obstructive coronary disease found CAD Presenation: Stable angina Heart Failure: NYHA Class: CCS III Cardiogenic Shock within 24 Hours: No Cardiac Arrest within 24 Hours: No Imaging Studies Past 6 Months: Yes Stress Studies Past 6 Months: No Standard Exercise Test: No Stress Echocardiogram: No Stress Testing w/SPECT MPI: No Cardiac CTA: No Coronary Anatomy Dominant: Left Left Main (% Stenosis): Normal LAD (% Stenosis): Proximal (70% or greater, FFR positive) D1 (% Stenosis): Normal D2 (% Stenosis): Normal D3 (% Stenosis): Normal Circumflex (% Stenosis): Mid (Moderate irregularities) OM1 (% Stenosis): Normal OM2 (% Stenosis): Normal L PL1 (% Stenosis): Mid (60-70, large vessel) RCA (% Stenosis): Normal (Small nondominant vessel consisting of 2 right ventricular branches) Diagnostic Physicians Name: Ga Johnson MD Closure Device Recommendations: PCI without planned CABG
[2022-02-17] MEDS ORDERED: FUROSEMIDE 40 MG TAB PO ONE (13:58)
[2022-02-17] MEDS ORDERED: LORazepam 1 MG/1 ML SYR IV STA (14:04)
[2022-02-17] MEDS ORDERED: LORazepam 0.5 MG in SYRINGE 0 ML IV STA (14:06)
--- NOTE | 2022-02-17 14:34 | Pharmacy Report ---
Pharmacy Glycemic Short Note 2 - Date of Service February 17, 2022 - Glycemic Short OUTPATIENT ANTIDIABETIC REGIMEN: * Toujeo - 125 units SQ Daily - last dose 02/17/22 AM * Novolog - 100 units SQ TDD, follows scale ASSESSMENT: * 61 yo male, PMHx of CAD, HTN, HLD, chronic diastolic CHF, COPD, pulmonary emphysema, asthma, chronic hypoxic respiratory failure, hypogonadism, polycythemia vera, GERD, chronic opioid dependence, morbid obesity with a BMI of 40.8, type 2 DM, s/p CC, staying overnight d/t complex medical comorbidities. * Patient took Toujeo dose this morning, will wait to start basal tomorrow morning, once daily dosing for easy transition back to home dosing. * Patient currently feeling "low" at 100mg/dl - will have higher goal range for patient's comfort. * Patient ordered Type 2 DM diet, begin CF/CR and titrate to goal BSG. PLAN FOR INPATIENT GLYCEMIC CONTROL: * Hold outpatient diabetes medications * Basal insulin * Lantus 80 units SQ Daily * Bolus insulin * NovoLog per scale ACHS or Q6hrs while NPO * Goal Range: Low 120 mg/dL - High 160 mg/dL * Correction Factor: 15 mg/dL/unit * Nutritional / Prandial insulin per carb ratio of 1 unit per 5 grams CHO consumed
[2022-02-17] MEDS ORDERED: ALBUT/IPRATROP 3MG/0.5MG NEB 3 ML VIAL NEB PRN (14:46)
[2022-02-17] MEDS: NICOTINE 21 MG/24 HR TDSY TD SCH (14:51)
[2022-02-17] MEDS: MoRPHine SULFATE CR 60 MG TABCR PO SCH ×2 (15:30→19:59)
[2022-02-17] MEDS: MoRPHine SULFATE CR 15 MG TABCR PO SCH ×2 (15:30→19:59)
[2022-02-17] MEDS ORDERED: FUROSEMIDE 40 MG/4 ML VIAL IV ONE (16:34)
[2022-02-17] MEDS ORDERED: ACETAMINOPHEN 325 MG TAB PO PRN (16:47)
[2022-02-17] MEDS: INSULIN ASPART PER UNIT SC SCH ×2 (16:59→20:39)
[2022-02-17] MEDS ORDERED: MoRPHine SULFATE CR 100 MG TABCR PO SCH (20:00)
[2022-02-17] MEDS: METOPROLOL SUCC 25MG EXT REL TAB PO SCH (20:38)
[2022-02-17] MEDS ORDERED: MONTELUKAST SODIUM 10 MG TABLET PO SCH (21:00)
[2022-02-17] MEDS ORDERED: CHOLECALCIFEROL 1,000 UNITS 25 MCG TAB PO SCH (21:00)
[2022-02-17] MEDS: TICAGRELOR 90 MG TAB PO SCH (21:29)
[2022-02-17] MEDS ORDERED: LORazepam 0.5 MG TAB ONE (22:01)
[2022-02-17] MEDS: MoRPHine SULFATE IR 15 MG TAB (IMMEDIATE RELEASE) PO PRN (22:16)
[2022-02-17] MEDS: LORazepam 0.5 MG TAB PO PRN (22:16)
[2022-02-17] MEDS ORDERED: XOPENEX/ATROVENT 1.25mg/0.5MG NEB COMBO NEB STA (22:22)
[2022-02-17] MEDS ORDERED: CETIRIZINE HCL 10 MG TABLET PO ONE (22:23)
[2022-02-17 22:44] LABS: Basophils # (auto) 0.05 K/uL (0-0.2); Basophils % (auto) 0.4 %; Eosinophils # (auto) 0.06 K/uL (0-0.50); Eosinophils % (auto) 0.5 %; Hematocrit (blood only) 44.6 % (40.1-51.0); Hemoglobin 13.7 g/dl (14.0-18.0); Immature Granulocytes # (auto) 0.04 K/uL (0.00-0.02); Immature Granulocytes % (auto) 0.3 %; Lymphocytes % (auto) 11.8 %; Mean Corpuscular Hgb Conc 30.7 g/dL (32.0-36.0); Mean Corpuscular Volume 74.8 fL (80.0-100.0); Mean Platelet Volume 8.9 fL (9.4-12.4); Monocytes # (auto) 1.24 K/uL (0.24-0.82); Monocytes % (auto) 10.4 %; Neutrophils # (auto) 9.12 K/uL (1.4-6.5); Neutrophils % (auto) 76.6 %; Platelet Count 278 K/uL (130-400); RDW Coefficient of Variation 17.9 % (11.5-14.5); RDW Standard Deviation 46.1 fL (36.4-46.3); Red Blood Count 5.96 M/uL (4.63-6.08); White Blood Count 11.91 K/ul (4.8-10.8)
[2022-02-17] MEDS ORDERED: IPRATROPIUM BROMIDE NEB SOLN 0.02% 2.5 ML VIAL INH STA (22:49)
[2022-02-17] MEDS ORDERED: LEVALBUTEROL 1.25MG/0.5ML NEB INH STA (22:49)
[2022-02-17 22:54] LABS: Partial Thromboplastin Ratio 0.9; Partial Thromboplastin Time 25.3 Seconds (21.0-31.0)
[2022-02-17 23:05] LABS: BUN Creatinine Ratio 11.7 (10-20); Calcium 9.1 mg/dl (8.5-10.1); Creatinine Clr Calc Pharmacy 67.4 ml/min; Est GFR (African American) 60.7 ml/min; Est GFR (Non-African American) 52.3 ml/min; Magnesium 2.1 mg/dl (1.7-2.4); Potassium 4.5 mmol/L (3.5-5.1)
--- NOTE | 2022-02-17 23:23 | Communication Note ---
Date of Service: February 17, 2022 Patient complaining that he cannot catch his breath. No unusual chest pain. Chronic cough symptoms. Thinks breathing treatment might help. Patient upset with inability to take home medications on his own schedule at the hospital Symptoms improved with Ativan, MS IR, and neb treatment as per RN. Chest x-ray as per my interpretation : Cardiomegaly, atelectasis Creatinine 1.4 UA ketones AP ARF with prerenal component given ketonuria Recent IV dye for cardiac cath Monitor creatinine response to gentle IV hydration Hold Lasix for now
[2022-02-17] MEDS ORDERED: SODIUM CHLORIDE 0.9% 1000ML 1,000 ML IV ONE (23:45)
[2022-02-18 00:43] LABS: Appearance Urine Clear (Clear); Bacteria Urine Automated Negative (Negative); Bilirubin Urine Negative (Negative); Blood Urine 1+ (Negative); Color Urine Yellow; Epithelial Cell Urine Auto 20-30 /lpf (0-5); Glucose Urine UA 3+ (Negative); Ketones Urine Trace (Negative); Leukocyte Esterase Urine Negative (Negative); Nitrite Urine Negative (Negative); Protein Urine 4+ (Negative); RBC Urine Automated 0-4 /hpf (0-4); Specific Gravity Urine 1.044 (1.000-1.030); Urobilinogen Urine Negative (Negative)
[2022-02-18] MEDS: MoRPHine SULFATE IR 15 MG TAB (IMMEDIATE RELEASE) PO PRN (03:14)
[2022-02-18 07:20] LABS: Basophils # (auto) 0.06 K/uL (0-0.2); Basophils % (auto) 0.5 %; Eosinophils # (auto) 0.13 K/uL (0-0.50); Eosinophils % (auto) 1.1 %; Hematocrit (blood only) 43.2 % (40.1-51.0); Hemoglobin 13.1 g/dl (14.0-18.0); Immature Granulocytes # (auto) 0.05 K/uL (0.00-0.02); Immature Granulocytes % (auto) 0.4 %; Lymphocytes # (auto) 2.02 K/uL (1.2-3.4); Lymphocytes % (auto) 17.2 %; Mean Corpuscular Hemoglobin 22.9 pg (25.0-34.0); Mean Corpuscular Hgb Conc 30.3 g/dL (32.0-36.0); Mean Corpuscular Volume 75.5 fL (80.0-100.0); Mean Platelet Volume 8.8 fL (9.4-12.4); Monocytes # (auto) 1.37 K/uL (0.24-0.82); Monocytes % (auto) 11.7 %; Neutrophils # (auto) 8.11 K/uL (1.4-6.5); Neutrophils % (auto) 69.1 %; Platelet Count 278 K/uL (130-400); RDW Coefficient of Variation 18.1 % (11.5-14.5); Red Blood Count 5.72 M/uL (4.63-6.08); White Blood Count 11.74 K/ul (4.8-10.8)
[2022-02-18 07:40] LABS: BUN Creatinine Ratio 14.6 (10-20); Calcium 9.3 mg/dl (8.5-10.1); Chol HDL Ratio 5.1 (0-5); Est GFR (Non-African American) 56.1 ml/min; Potassium 4.6 mmol/L (3.5-5.1)
[2022-02-18] MEDS ORDERED: MoRPHine SULFATE IR 15 MG TAB (IMMEDIATE RELEASE) PO PRN (07:50)
[2022-02-18 07:52] LABS: Estimated Average Glucose 189 mg/dl; Hemoglobin A1C 8.2 % (4.5-5.6)
--- NOTE | 2022-02-18 08:28 | XRay Report ---
XR chest 1V portable HISTORY: 61 years-old Male sob acute shortness of breath COMPARISON: Chest radiograph 06/22/2021 TECHNIQUE: AP view of the chest FINDINGS: Cardiomediastinal and hilar silhouettes are within normal limits. No pneumothorax, pleural effusion, airspace consolidation or overt pulmonary edema. Prior resection of the distal left clavicle. The bon es appear grossly intact. IMPRESSION: No acute process. ACT 112: Negative or not required by law. The above report was generated using voice recognition software. It may contain grammatical, syntax o r spelling errors. Electronically signed by: Prashant Pope M.D. 02/18/2022 8:27 AM
[2022-02-18] MEDS: MoRPHine SULFATE CR 60 MG TABCR PO SCH (08:31)
[2022-02-18] MEDS: MoRPHine SULFATE CR 15 MG TABCR PO SCH (08:31)
[2022-02-18] MEDS: METOPROLOL SUCC 25MG EXT REL TAB PO SCH (08:32)
[2022-02-18] MEDS: NICOTINE 21 MG/24 HR TDSY TD SCH (08:32)
[2022-02-18] MEDS: TICAGRELOR 90 MG TAB PO SCH (08:33)
[2022-02-18] MEDS: INSULIN ASPART PER UNIT SC SCH ×2 (08:34→12:03)
[2022-02-18] MEDS ORDERED: FUROSEMIDE 40 MG TAB PO SCH (09:00)
[2022-02-18] MEDS ORDERED: ASPIRIN 81 MG ECTAB PO SCH (09:00)
[2022-02-18] MEDS ORDERED: CETIRIZINE HCL 10 MG TABLET PO SCH (09:00)
[2022-02-18] MEDS ORDERED: LINACLOTIDE 145 MCG CAPSULE PO SCH (09:00)
--- NOTE | 2022-02-18 09:24 | Pharmacy Report ---
Pharmacy Glycemic Short Note 2 - Date of Service February 18, 2022 - Glycemic Short BSG Results (Last 24 hours): 02/17/22 02/17/22 02/17/22 16:20 20:08 22:32 Glucose 274 H POC Glucose 140 H 186 H 02/18/22 02/18/22 06:27 07:05 Glucose 137 H POC Glucose 136 H OUTPATIENT ANTIDIABETIC REGIMEN: * Toujeo 125 units SC Daily * Novolog 100 units SC TDD, follows scale * HbA1c = 8.2% (02/18/22) ASSESSMENT: 02/18: * aNbil received only 7 units of Novolog following the cardiac cath yesterday. BSGs last evening were 140 and 186 mg/dL. Did received 125 units of Toujeo prior to admission yesterday morning. Unknown if any Novolog received prior to admission. * Ordered and tolerating a T2DM diet. A1c from this morning shows improvement but still above goal. * Will continue with 80 units of Lantus this AM which is an approximate 35% reduction in home dose. Novolog was tightened last evening so will continue with this. 02/17: * 61 yo male, PMHx of CAD, HTN, HLD, chronic diastolic CHF, COPD, pulmonary emphysema, asthma, chronic hypoxic respiratory failure, hypogonadism, polycythemia vera, GERD, chronic opioid dependence, morbid obesity with a BMI of 40.8, type 2 DM, s/p CC, staying overnight d/t complex medical comorbidities. * Patient took Toujeo dose this morning, will wait to start basal tomorrow morning, once daily dosing for easy transition back to home dosing. * Patient currently feeling "low" at 100mg/dl - will have higher goal range for patient's comfort. * Patient ordered Type 2 DM diet, begin CF/CR and titrate to goal BSG. PLAN FOR INPATIENT GLYCEMIC CONTROL: * Basal insulin * Lantus 80 units SC Daily * Bolus insulin * NovoLog per scale ACHS or Q6hrs while NPO * Goal Range: Low 120 mg/dL - High 160 mg/dL * Correction Factor: 10 mg/dL/unit * Nutritional / Prandial insulin per carb ratio of 1 unit per 3 grams CHO consumed
[2022-02-18] MEDS: LORazepam 0.5 MG TAB PO PRN (10:39)
--- NOTE | 2022-02-18 10:42 | Cardiac Catheterization ---
[facility] Data: Bilingual Student Tutor Cardiac Status Clinical evaluation leading to the procedure CAD Presenation: Stable angina Anginal Classification: CCS III Heart Failure: No Cardiogenic Shock within 24 Hours: No Cardiac Arrest within 24 Hours: No Coronary Anatomy LAD (% Stenosis): Proximal (Angiographically 70%) Diagnostic Physicians Name: Joseph Leach MD, PhD Closure Device Percutaneous Entry Location: Radial Closure Device: Radial Band Recommendations: PCI without planned CABG PCI Indication: + Stress Test and Stable Angina Lesion Segment Name: Proximal LAD Culprit Artery: Yes Stenosis Prior to Rx (%): 70 Chronic Total Occlusion: No FFR: Yes Ratio: greater than 0.75% (0.78-.80 without hyperemia.) Pre-Procedure MARIELENA Flow: 3 Previously Treated Lesion: No Lesion Complexity: Non-High/Non-C Lesion Length (mm): 15 mm Thrombus Present: No Bifurcation Lesion: No Guidewire Across Lesion: Yes Intraprocedure Events Significant Disection: No Perforation: No Cardiac Cath Procedure Full Procedure Date February 18, 2022 Pre-Procedure Diagnosis Pre-Procedure Diagnosis: Angina AUC Score AUC Score: 8 Post-Procedure Diagnosis Post-Procedure Diagnosis: Severe CAD Procedure(s) Performed Procedure(s) Performed: Drug Eluting Stent and Fractional Flow [place] Bed Laborer Joseph Leach MD, PhD Estimated Blood Loss Estimated Blood Loss: <15cc Medication(s) Medication(s): Fentanyl (12.5 mcg IV), Heparin (5000 units IV), Lidocaine 1% (Local infiltration access site), Nicardipine (250 mcg intra-arterial after arterial sheath insertion) and Versed (1 mg IV) Summary of Findings Brief description: Patient was on the cardiac catheterization table having just completed diagnostic catheterization performed by Dr. Ga Johnson. He had received IV heparin. ACT was checked and additional IV heparin was provided as needed to maintain therapeutic ACT.. Patient had already been sedated. We proceeded first with hemodynamic analysis of the ostial to proximal LAD stenosis. A 6 [place] EBU 3.5 guide catheter was used to engage the left main coronary artery. Through this, a BMW universal guidewire was advanced and positioned distally in the LAD. The Navvus hemodynamic catheter was then advanced and positioned with its tip just distal to the guide catheter tip the system was flushed with normal saline and the pressures were equalized. The catheter was then advanced over the wire beyond the lesion in the LAD. There was a significant drop off in pressure. The catheter was pulled back and confirmed that the proximal pressure was equalized. The catheter was then readvanced and positioned distal to the lesion. The Pd/Pa at rest already met criteria for significance without the use of adenosine for hyperemia. Therefore, we did not infuse adenosine as originally planned. We therefore removed the Navvus pressure catheter and proceeded with PCI of the lesion. Lesion was predilated using a 2.5 x 15 mm balloon up to 14 angela. Then, a 2.75 x 22 mm Levar stent was passed across the lesion where it was deployed using 11 angela. Stent balloon was then removed. Guidewire was removed and final a ngiographic evaluation was performed. The guide catheter was then removed. Radial artery sheath was removed. Hemostasis was obtained using the TR band. Patient was hemodynamically and asymptomatic. He was returned to the recovery area. This ended the case. PCI and FFR findings: LAD Pd/Pa: 0.79, 0.80, 0.78. Therefore, this is hemodynamically significant. 0% rigid residual stenosis post PCI. No evidence of dissection or perforation post PCI MARIELENA-3 flow post PCI Summary: 1. Hemodynamically significant (severe) angiographically borderline stenosis of the ostial to proximal LAD proven by hemodynamic analysis. 2. Successful PCI of the LAD with implantation of a drug-eluting stent 3. Recommend dual antiplatelet therapy for at least 1 but preferably up to 2 years. 4. Guideline directed medical therapy for secondary prevention of coronary disease to include; low-dose aspirin, high intensity statin therapy, beta- judit, plus or minus BELG[place] inhibitor/ARB. Hemodynamics Rest Ao:: 174/77 mmHg, mean 118 mmHg Final Ao: 154/67 mmHg, mean 96 mmHg LV: Not performed Recommendations Recommendations: PCI without planned CABG Specimens Specimens: None Radiation Exposure (mGy) 2657 mGy, fluoroscopy time 12.2 minutes Contrast (mls) 150 mL Fluids (cc crystalloids) Fluids (cc crystalloids): 70 Anesthesia Start time 1158, stop time 1222 Procedural Complication(s) None Disposition PCU I attest to the content of the Intraoperative Record and any orders documented therein. Any exceptions are noted below. [facility] Card Cath Procedure Codes Cardiac Catheterization Procedure 1: Cardiovascular Cath Procedures: 55325 (Doppler) Pressure Wire Moderate Sedation Procedure 1: Sedation/Anesthesia: 15924 Mod Sedation by the same physician;Init15 Min Child Age 5 & Up (15 min) Procedure 2: Sedation/Anesthesia: 71450 Mod Sedation by the same physician; Ea [id number] Minutes (9 additional minutes. Total sedation time 24 minutes) Stenting Procedure 1: Cardiovascular Stent Procedures: 76833 Perc transcatheter placement of intracoronary stent(s), with ang (LAD) PG Care Time/CCT Total # of Minutes Spent Total Time Spent with Patient: Total time spent is greater than 50% in coordination of care (as documented) at patient's floor/unit and/or counseling patient:
--- NOTE | 2022-02-18 10:54 | Cardiology Progress Note ---
Date of Service February 18, 2022 Assessment & Plan (1) CAD (coronary artery disease): (2) Chronic diastolic CHF (congestive heart failure): (3) COPD (chronic obstructive pulmonary disease): (4) Obstructive sleep apnea: (5) Chronic kidney disease (CKD): (6) Opioid dependence: (7) Polycythemia, secondary: Plan Patient is a 61-year-old male complex history of underlying pulmonary issues O2 and CPAP dependent chronic obstructive lung disease chronic diastolic heart failure admitted for evaluation of coronary disease and intracardiac pressures. Coronary angiography demonstrated proximal left anterior descending disease which was intervened with drug-eluting stent. Left ventricular end-diastolic pressure elevated Exam consistent with acute on chronic diastolic/right heart failure and patient dyspneic last night. Prior managements been limited by patient compliance and m edication intolerances. Does not tolerate in hospital stays due to chronic back issues. Dyspnea of last night improved this morning did receive furosemide x1 dose and phlebotomy Recommendations: Long discussion regarding ongoing management with patient discussed inpatient management of chronic diastolic heart failure. Patient declines and wishes medical therapies at home Tobacco cessation mandated Continue oxygen and and CPAP usage faithfully CHF instructions with sodium and fluid restriction Increase furosemide 80 mg p.o. daily x4 days then back to 40 mg/day unless no clinical response. Patient to begin following weights daily and report response. Spironolactone contraindicated given past history of hyperkalemia Continue metoprolol succinate 25 mg twice per day Dual antiplatelet therapy as ordered with Brilinta and aspirin Add rosuvastatin 5 mg p.o. daily with past statin intolerance as noted per patient Follow-up PCP as scheduled 02/24/2022 Cardiology/CHF clinic 1 week Admission and Anticipated Discharge Date Admission Date: February 17, 2022 Subjective Patient seen and examined, chart, medications, telemetry reviewed. Chronic breathlessness overnight. No chest pain or discomfort this morning. Still with chronic cough multiple concerns regarding ongoing management. Notes poor tolerance of in-hospital management of back pain and chronic dyspnea. Review of Systems Review of Systems: All systems reviewed & are unremarkable except as noted in Subjective Physical Exam Constitutional: + morbidly obese Chronically dyspneic Eyes: PERRL, conjunctivae normal, anicteric sclerae ENMT: external ear and nose normal, oropharynx normal Mallampati Class: III Plethoric face Neck: trachea midline, no thyromegaly + thick neck Respiratory: Auscultation: + diminished lung sounds and + rhonchi (Right greater than left with forced cough) Cardiovascular: Rate/Rhythm: regular rate and regular rhythm Heart Sounds: normal S1 and normal S2; no murmur Vessels: no JVD Extremities: + edema (2-3+ to mid thigh) Gastrointestinal (Abdomen): Inspection/Auscultation: + abdomen distended Percussion/Palpation: abdomen nontender Musculoskeletal: no cyanosis or clubbing, extremities motor strength 5/5 Results & Data ([facility]) Vital Signs (Past 12 Hours) Vital Signs Temp Pulse Pulse Resp BP Pulse Ox O2 Del Method 02/18/22 08:00 66 02/18/22 08:19 36.4 C L 87 20 154/84 H 100 Nasal Cannula 02/18/22 03:32 36.5 C 71 18 146/67 H 95 Nasal Cannula 02/17/22 23:38 106 H 02/17/22 23:15 36.5 C 91 H 20 168/71 H 96 Room Air 02/17/22 22:55 95 H 22 99 Nasal Cannula O2 Flow Rate 02/18/22 08:00 02/18/22 08:19 4.0 02/18/22 03:32 02/17/22 23:38 02/17/22 23:15 02/17/22 22:55 4 Laboratory Results Laboratory Results - last 24 hr 02/17/22 02/17/22 02/17/22 12:16 12:27 14:43 WBC RBC Hgb Hct MCV MCH MCHC RDW Std Deviation RDW Coeff of Ben Plt Count MPV Immature Gran % (Auto) Neut % (Auto) Lymph % (Auto) [place] % (Auto) Eos % (Auto) Baso % (Auto) Neut # (Auto) Lymph # (Auto) [place] # (Auto) Eos # (Auto) Baso # (Auto) Immature Gran # (Auto) APTT PTT Ratio Activ Coag Time Kaolin 225 H 202 H Sodium Potassium Chloride Carbon Dioxide Anion Gap BUN Creatinine Est Cr Clr Drug Dosing Est GFR ( Amer) Est GFR (Non-Af Amer) BUN/Creatinine Ratio Glucose POC Glucose Estimat Average Glucose Hemoglobin A1c Calcium Magnesium Troponin I High Sens 22.3 H Triglycerides Cholesterol LDL Cholesterol, Calc VLDL Cholesterol, Calc HDL Cholesterol Cholesterol/HDL Ratio Urine Color Urine Appearance Urine pH Ur Specific [place] Urine Protein Urine Glucose (UA) Urine Ketones Urine Blood Urine Nitrite Urine Bilirubin Urine Urobilinogen Ur Leukocyte Esterase Urine WBC (Auto) Urine RBC (Auto) U Hyaline Cast (Auto) U Epithel Cells (Auto) Urine Bacteria (Auto) 02/17/22 02/17/22 02/17/22 16:20 19:24 20:08 WBC RBC Hgb Hct MCV MCH MCHC RDW Std Deviation RDW Coeff of Ben Plt Count MPV Immature Gran % (Auto) Neut % (Auto) Lymph % (Auto) [place] % (Auto) Eos % (Auto) Baso % (Auto) Neut # (Auto) Lymph # (Auto) [place] # (Auto) Eos # (Auto) Baso # (Auto) Immature Gran # (Auto) APTT PTT Ratio Activ Coag Time Kaolin Sodium Potassium Chloride Carbon Dioxide Anion Gap BUN Creatinine Est Cr Clr Drug Dosing Est GFR ( Amer) Est GFR (Non-Af Amer) BUN/Creatinine Ratio Glucose POC Glucose 140 H 186 H Estimat Average Glucose Hemoglobin A1c Calcium Magnesium Troponin I High Sens 84.1 H* D Triglycerides Cholesterol LDL Cholesterol, Calc VLDL Cholesterol, Calc HDL Cholesterol Cholesterol/HDL Ratio Urine Color Urine Appearance Urine pH Ur Specific [place] Urine Protein Urine Glucose (UA) Urine Ketones Urine Blood Urine Nitrite Urine Bilirubin Urine Urobilinogen Ur Leukocyte Esterase Urine WBC (Auto) Urine RBC (Auto) U Hyaline Cast (Auto) U Epithel Cells (Auto) Urine Bacteria (Auto) 02/17/22 02/17/22 02/17/22 22:32 22:32 22:32 WBC 11.91 H RBC 5.96 Hgb 13.7 L Hct 44.6 MCV 74.8 L MCH 23.0 L MCHC 30.7 L RDW Std Deviation 46.1 RDW Coeff of Ben 17.9 H Plt Count 278 MPV 8.9 L Immature Gran % (Auto) 0.3 Neut % (Auto) 76.6 Lymph % (Auto) 11.8 [place] % (Auto) 10.4 Eos % (Auto) 0.5 Baso % (Auto) 0.4 Neut # (Auto) 9.12 H Lymph # (Auto) 1.40 [place] # (Auto) 1.24 H Eos # (Auto) 0.06 Baso # (Auto) 0.05 Immature Gran # (Auto) 0.04 H APTT 25.3 PTT Ratio 0.9 Activ Coag Time Kaolin Sodium 135 L Potassium 4.5 Chloride 99 Carbon Dioxide 29 Anion Gap 7 BUN 17 Creatinine 1.45 H Est Cr Clr Drug Dosing 67.4 Est GFR ( Amer) 60.7 Est GFR (Non-Af Amer) 52.3 BUN/Creatinine Ratio 11.7 Glucose 274 H POC Glucose Estimat Average Glucose Hemoglobin A1c Calcium 9.1 Magnesium 2.1 Troponin I High Sens Triglycerides Cholesterol LDL Cholesterol, Calc VLDL Cholesterol, Calc HDL Cholesterol Cholesterol/HDL Ratio Urine Color Urine Appearance Urine pH Ur Specific [place] Urine Protein Urine Glucose (UA) Urine Ketones Urine Blood Urine Nitrite Urine Bilirubin Urine Urobilinogen Ur Leukocyte Esterase Urine WBC (Auto) Urine RBC (Auto) U Hyaline Cast (Auto) U Epithel Cells (Auto) Urine Bacteria (Auto) 02/18/22 02/18/22 02/18/22 00:15 06:27 06:27 WBC 11.74 H RBC 5.72 Hgb 13.1 L Hct 43.2 MCV 75.5 L MCH 22.9 L MCHC 30.3 L RDW Std Deviation 47.0 H RDW Coeff of Ben 18.1 H Plt Count 278 MPV 8.8 L Immature Gran % (Auto) 0.4 Neut % (Auto) 69.1 Lymph % (Auto) 17.2 [place] % (Auto) 11.7 Eos % (Auto) 1.1 Baso % (Auto) 0.5 Neut # (Auto) 8.11 H Lymph # (Auto) 2.02 [place] # (Auto) 1.37 H Eos # (Auto) 0.13 Baso # (Auto) 0.06 Immature Gran # (Auto) 0.05 H APTT PTT Ratio Activ Coag Time Kaolin Sodium 137 Potassium 4.6 Chloride 101 Carbon Dioxide 30 Anion Gap 6 BUN 20 Creatinine 1.37 Est Cr Clr Drug Dosing 72.0 Est GFR ( Amer) 65.0 Est GFR (Non-Af Amer) 56.1 BUN/Creatinine Ratio 14.6 Glucose 137 H POC Glucose Estimat Average Glucose Hemoglobin A1c Calcium 9.3 Magnesium Troponin I High Sens Triglycerides 170 H Cholesterol 223 H LDL Cholesterol, Calc 145 VLDL Cholesterol, Calc 34 H HDL Cholesterol 44 Cholesterol/HDL Ratio 5.1 H Urine Color Yellow Urine Appearance Clear Urine pH 5.0 Ur Specific [place] 1.044 H Urine Protein 4+ H Urine Glucose (UA) 3+ H Urine Ketones Trace H Urine Blood 1+ H Urine Nitrite Negative Urine Bilirubin Negative Urine Urobilinogen Negative Ur Leukocyte Esterase Negative Urine WBC (Auto) 1-5 Urine RBC (Auto) 0-4 U Hyaline Cast (Auto) 1-5 U Epithel Cells (Auto) 20-30 H Urine Bacteria (Auto) Negative 02/18/22 02/18/22 06:27 07:05 WBC RBC Hgb Hct MCV MCH MCHC RDW Std Deviation RDW Coeff of Ben Plt Count MPV Immature Gran % (Auto) Neut % (Auto) Lymph % (Auto) [place] % (Auto) Eos % (Auto) Baso % (Auto) Neut # (Auto) Lymph # (Auto) [place] # (Auto) Eos # (Auto) Baso # (Auto) Immature Gran # (Auto) APTT PTT Ratio Activ Coag Time Kaolin Sodium Potassium Chloride Carbon Dioxide Anion Gap BUN Creatinine Est Cr Clr Drug Dosing Est GFR ( Amer) Est GFR (Non-Af Amer) BUN/Creatinine Ratio Glucose POC Glucose 136 H Estimat Average Glucose 189 Hemoglobin A1c 8.2 H Calcium Magnesium Troponin I High Sens Triglycerides Cholesterol LDL Cholesterol, Calc VLDL Cholesterol, Calc HDL Cholesterol Cholesterol/HDL Ratio Urine Color Urine Appearance Urine pH Ur Specific [place] Urine Protein Urine Glucose (UA) Urine Ketones Urine Blood Urine Nitrite Urine Bilirubin Urine Urobilinogen Ur Leukocyte Esterase Urine WBC (Auto) Urine RBC (Auto) U Hyaline Cast (Auto) U Epithel Cells (Auto) Urine Bacteria (Auto) Diagnostic Findings Echocardiogram 06/07/2021 The left ventricular cavity size is normal. The LV wall thickness is mildly increased (concentric). The left ventricular wall motion is normal. Calculated LV ejection Fraction = 63% (bi-plane method of discs). The left ventricular diastolic function is normal. The left atrium is normal sized (< 35 ml/m^2). Mild mitral regurgitation is present. Normal IVC size and collapsability with inspiration indicates a normal right atrial pressure of 3 mmHg. The estimated pulmonary artery systolic pressure is 35-40mm Hg.
--- NOTE | 2022-02-18 11:30 | Hospitalist Progress Note ---
Date of Service February 18, 2022 Assessment & Plan (1) Chronic diastolic CHF (congestive heart failure): (2) CAD (coronary artery disease): (3) Hypertension: (4) Dyslipidemia: Plan: Chronic diastolic heart failure Coronary artery disease S/P Cardiac cath for stable angina:Hemodynamically significant (severe) angiographically borderline stenosis of the ostial to proximal LAD proven by hemodynamic analysis. -CXR:No acute process. -- Continue aspirin, Brilinta, metoprolol Started on low-dose rosuvastatin 5 mg daily given history of statin intolerance Appreciate cardiology input Plan during increase Lasix 80 mg daily for 4 days and then transition back to 40 mg daily Needs follow-up with cardiology in 1 week upon discharge Counseled to quit smoking (5) Polycythemia, secondary: Plan: - HCT 45.5 from outpt labs on 02/16 reviewed in [facility], discussed with Dr. Cox, outpatient oncologist who agrees for phlebotomy x 1 U today, likely to improve sensation of chest heaviness. Appreciate recs. Had 1 unit therapeutic phlebotomy (6) Tobacco abuse: Plan: - Tobacco cessation encouraged at bedside Nicotine patch (7) Pulmonary emphysema: (8) COPD (chronic obstructive pulmonary disease): Plan: Chronic respiratory failure with hypoxia Chronic oxygen dependency 5-6 L during the day and CPAP at bedtime Continue home inhalers (9) Opioid dependence: Plan: - PDMP reviewed: Follow with provider at [facility] - Take morphine sulfate ER 100 mg TID last filled 01/11/22 and morphine sulfate IR 30 mg BID prn which is ordered and was discussed with the pharmacy. - There are prescriptions from 02/10 which are different compared to all other previous prescriptions, which appears to be a significant reduction in pain medication - this is likely an error, and pt states he has not picked up a new rx for this month yet. - Monitor closely with O2 - Bowel regimen with narcotic use, continue linaclotide 145 mg daily (10) Diabetic nephropathy associated with type 2 diabetes mellitus: Plan: -Home insulin regimen includes Toujeo 100 mg daily, insulin sliding scale with total daily dose of 100 mg NovoLog -HbA1c 8.2 -ISS with Accu-Cheks ACHS -Glycemic pharmacy consulted (11) Obesity: Plan: -BMI 40.8, diet and exercise to be encouraged throughout hospital stay and upon discharge DVT px:- teds, scds CODE: Full code Admission and Anticipated Discharge Date Admission Date: February 17, 2022 Subjective Patient is seen and examined at bedside Reports chronic dyspnea Denies any chest pain, nausea, vomiting, abdominal pain Reports chronic cough as well Discussed with cardiology today No new complaints Review of Systems Review of Systems: All systems reviewed & are unremarkable except as noted in Subjective Physical Exam Physical Exam: Physical Exam: Vitals signs as noted above General Appearance:Morbidly Obese, no apparent distress Head: normocephalic, Atraumatic Eyes: normal inspection, EOMI Neck: supple, Trachea midline Respiratory/Chest: Decreased coarse breath sounds, No accessory muscle use Cardiovascular: S1, S2, No murmur Abdomen/GI:Soft, Non tender, Bowel sounds present Extremities/Musculoskeletal:normal inspection, 2+ B/L LE edema Neurologic/Psych:AAOX3, grossly no focal neurological deficits Skin: normal color, warm Results & Data Results & Data ([facility]) Vital Signs (Past 12 Hours) Vital Signs Temp Pulse Pulse Resp BP Pulse Ox O2 Del Method 02/18/22 10:45 Room Air 02/18/22 08:00 66 02/18/22 08:19 36.4 C L 87 20 154/84 H 100 Nasal Cannula 02/18/22 03:32 36.5 C 71 18 146/67 H 95 Nasal Cannula 02/17/22 23:38 106 H O2 Flow Rate 02/18/22 10:45 02/18/22 08:00 02/18/22 08:19 4.0 02/18/22 03:32 02/17/22 23:38 Laboratory Results Short CBC 02/17/22 02/18/22 Range/Units 22:32 06:27 WBC 11.91 H 11.74 H (4.8-10.8) K/ul Hgb 13.7 L 13.1 L (14.0-18.0) g/dl Hct 44.6 43.2 (40.1-51.0) % Plt Count 278 278 (130-400) K/uL BMP 02/17/22 02/18/22 22:32 06:27 Sodium 135 L 137 Potassium 4.5 4.6 Chloride 99 101 Carbon Dioxide 29 30 BUN 17 20 Creatinine 1.45 H 1.37 Glucose 274 H 137 H Calcium 9.1 9.3 Urine 02/18/22 Range/Units 00:15 Urine Color Yellow Urine Appearance Clear (Clear) Urine pH 5.0 (4.5-7.5) Ur Specific [place] 1.044 H (1.000-1.030) Urine Protein 4+ H (Negative) Urine Glucose (UA) 3+ H (Negative) (1) Hypertension Hypertension type: unspecified Qualified Code(s): I10 - Essential (primary) hypertension
--- NOTE | 2022-02-18 11:42 | Discharge Summary ---
Date of Service February 18, 2022 Admission HPI Per Admitting Provider This is a 61-year-old male with PMHx of CAD, HTN, HLD, chronic diastolic CHF, COPD, pulmonary emphysema, asthma, chronic hypoxic respiratory failure, hypogonadism, polycythemia vera, GERD, chronic opioid dependence, and morbid obesity with a BMI of 40.8 Patient presented to the hospital for routine cardiac catheterization. Due to his complex medical comorbidities cardiology has asked for overnight observation. Pt reports feeling like he cant catch his breath, and is feeling like he could . Patient is extremely anxious, sitting at the side of the bed, shaking. He is repeating himself several times during our interview and asks his phone what his glucose level is at least 4 times. Oxygen was placed on the patient, at baseline he wears 5-6 L O2 at home, which improved his breath. I have ordered and 0.5 mg IV for his anxiety, and Lasix 40 mg now as he did not take it this morning dose at home. His arrives at bedside during my examination, and has glucose tablets with her and he takes 2. She is aware of his anxiety and panic attacks and confirms that this is one like he has had before. I will also order him a nicotine patch as he has not had a cigarette today and typically smokes 1ppd. Pt discussed that he is due for phlebotomy for polycythemia vera, and that when his HCT is above 45, his mammography tech orders 1 U removal - I discussed with Dr. Cox (his outpt heme/onc) and he recommends 1 U phlebotomy. Pt also reports significant needs for morphine sulfate and wants to make sure this is ordered correctly. He too Morphine Sulfate ER 100 mg this morning AND Morphine sulfate IR 30 mg this morning. Pt is calmer after my visit, both he and his are satisfied with treatment plan. Principal Diagnosis Severe coronary artery disease Chronic diastolic heart failure COPD Obstructive sleep apnea Polycythemia Discharge Data Allergies Allergy/AdvReac Type Severity Reaction Status Date / Time clarithromycin Allergy Severe DAMAGED Verified 11/25/21 15:26 LIVER PER PT-REQUIRED HOSPITALIZATION adhesive AdvReac Mild SKIN Verified 11/25/21 15:26 RASH-WITH SOME TAPES Uncoded Nonscreenable Allergy Intermediate PLASTICS: Uncoded 11/25/21 15:26 Allergen BLISTERS GLP-1RA AdvReac Unknown Hx of Uncoded 11/16/21 16:38 Pancreatitis Consultations 02/17/22 13:19 Consult Cardiology Routine Procedures Performed Operation Date: 02/17/22 11:00 Actual Procedures p Cineradiography w/Routine Exam - Ga Johnson MD s Fraction Flow [place] SGL Ves - Joseph Leach MD, PhD p Drug Eluting Stent SGl Vessel(Right) - Joseph Leach MD, PhD p Cath, Left with Cors and Vent - Ga Johnson MD Ordered Studies 02/17/22 07:09 CL Cath Imgs for PACS use only Routine Laboratory Results WBC 11.74 K/ul (4.8-10.8) H 02/18/22 06:27 RBC 5.72 M/uL (4.63-6.08) 02/18/22 06:27 Hgb 13.1 g/dl (14.0-18.0) L 02/18/22 06:27 Hct 43.2 % (40.1-51.0) 02/18/22 06:27 MCV 75.5 fL (80.0-100.0) L 02/18/22 06:27 MCH 22.9 pg (25.0-34.0) L 02/18/22 06:27 MCHC 30.3 g/dL (32.0-36.0) L 02/18/22 06:27 RDW Std Deviation 47.0 fL (36.4-46.3) H 02/18/22 06:27 RDW Coeff of Ben 18.1 % (11.5-14.5) H 02/18/22 06:27 Plt Count 278 K/uL (130-400) 02/18/22 06:27 MPV 8.8 fL (9.4-12.4) L 02/18/22 06:27 Immature Gran % (Auto) 0.4 % 02/18/22 06:27 Neut % (Auto) 69.1 % 02/18/22 06:27 Lymph % (Auto) 17.2 % 02/18/22 06:27 [place] % (Auto) 11.7 % 02/18/22 06:27 Eos % (Auto) 1.1 % 02/18/22 06:27 Baso % (Auto) 0.5 % 02/18/22 06:27 Neut # (Auto) 8.11 K/uL (1.4-6.5) H 02/18/22 06:27 Lymph # (Auto) 2.02 K/uL (1.2-3.4) 02/18/22 06:27 [place] # (Auto) 1.37 K/uL (0.24-0.82) H 02/18/22 06:27 Eos # (Auto) 0.13 K/uL (0-0.50) 02/18/22 06:27 Baso # (Auto) 0.06 K/uL (0-0.2) 02/18/22 06:27 Immature Gran # (Auto) 0.05 K/uL (0.00-0.02) H 02/18/22 06:27 APTT 25.3 Seconds (21.0-31.0) 02/17/22 22:32 PTT Ratio 0.9 02/17/22 22:32 Activ Coag Time Kaolin 202 SECONDS (94-140) H 02/17/22 12:27 Sodium 137 mmol/L (136-145) 02/18/22 06:27 Potassium 4.6 mmol/L (3.5-5.1) 02/18/22 06:27 Chloride 101 mmol/L (98-107) 02/18/22 06:27 Carbon Dioxide 30 mmol/L (21-32) 02/18/22 06:27 Anion Gap 6 (3-11) 02/18/22 06:27 BUN 20 mg/dl (6-23) 02/18/22 06:27 Creatinine 1.37 mg/dl (0.6-1.4) 02/18/22 06:27 Est Cr Clr Drug Dosing 72.0 ml/min 02/18/22 06:27 Est GFR ( Amer) 65.0 ml/min 02/18/22 06:27 Est GFR (Non-Af Amer) 56.1 ml/min 02/18/22 06:27 BUN/Creatinine Ratio 14.6 (10-20) 02/18/22 06:27 Glucose 137 mg/dl (70-99(Fasting)) H 02/18/22 06:27 POC Glucose 227 mg/dl (70-99) H 02/18/22 11:21 Estimat Average Glucose 189 mg/dl 02/18/22 06:27 Hemoglobin A1c 8.2 % (4.5-5.6) H 02/18/22 06:27 Calcium 9.3 mg/dl (8.5-10.1) 02/18/22 06:27 Magnesium 2.1 mg/dl (1.7-2.4) 02/17/22 22:32 Troponin I High Sens 84.1 pg/ml (0-20) H* D 02/17/22 19:24 Triglycerides 170 mg/dl (0-150) H 02/18/22 06:27 Cholesterol 223 mg/dl (0-200) H 02/18/22 06:27 LDL Cholesterol, Calc 145 mg/dl 02/18/22 06:27 VLDL Cholesterol, Calc 34 mg/dl (0-30) H 02/18/22 06:27 HDL Cholesterol 44 mg/dl 02/18/22 06:27 Cholesterol/HDL Ratio 5.1 (0-5) H 02/18/22 06:27 Urine Color Yellow 02/18/22 00:15 Urine Appearance Clear (Clear) 02/18/22 00:15 Urine pH 5.0 (4.5-7.5) 02/18/22 00:15 Ur Specific [place] 1.044 (1.000-1.030) H 02/18/22 00:15 Urine Protein 4+ (Negative) H 02/18/22 00:15 Urine Glucose (UA) 3+ (Negative) H 02/18/22 00:15 Urine Ketones Trace (Negative) H 02/18/22 00:15 Urine Blood 1+ (Negative) H 02/18/22 00:15 Urine Nitrite Negative (Negative) 02/18/22 00:15 Urine Bilirubin Negative (Negative) 02/18/22 00:15 Urine Urobilinogen Negative (Negative) 02/18/22 00:15 Ur Leukocyte Esterase Negative (Negative) 02/18/22 00:15 Urine WBC (Auto) 1-5 /hpf (0-5) 02/18/22 00:15 Urine RBC (Auto) 0-4 /hpf (0-4) 02/18/22 00:15 U Hyaline Cast (Auto) 1-5 /lpf (0-5) 02/18/22 00:15 U Epithel Cells (Auto) 20-30 /lpf (0-5) H 02/18/22 00:15 Urine Bacteria (Auto) Negative (Negative) 02/18/22 00:15 Impressions Chest X-Ray 02/17/22 21:45 XR chest 1V portable HISTORY: 61 years-old Male sob acute shortness of breath COMPARISON: Chest radiograph 06/22/2021 TECHNIQUE: AP view of the chest FINDINGS: Cardiomediastinal and hilar silhouettes are within normal limits. No pneumotho rax, pleural effusion, airspace consolidation or overt pulmonary edema. Prior resection of the distal left clavicle. The bones appear grossly intact. IMPRESSION: No acute process. ACT 112: Negative or not required by law. The above report was generated using voice recognition software. It may contain grammatical, syntax or spelling errors. Electronically signed by: Prashant Pope M.D. 02/18/2022 8:27 AM Hospital Course (1) Chronic diastolic CHF (congestive heart failure): (2) CAD (coronary artery disease): (3) Hypertension: (4) Dyslipidemia: Chronic diastolic heart failure Coronary artery disease S/P Cardiac cath for stable angina:Hemodynamically significant (severe) angiographically borderline stenosis of the ostial to proximal LAD proven by hemodynamic analysis. -CXR:No acute process. -- Continue aspirin, Brilinta, metoprolol Started on low-dose rosuvastatin 5 mg daily given history of statin intolerance Appreciate cardiology input Plan during increase Lasix 80 mg daily for 4 days and then transition back to 40 mg daily Needs follow-up with cardiology in 1 week upon discharge Counseled to quit smoking (5) Polycythemia, secondary: - HCT 45.5 from outpt labs on 02/16 reviewed in [facility], discussed with Dr. Cox, outpatient oncologist who agrees for phlebotomy x 1 U today, likely to improve sensation of chest heaviness. Appreciate recs. Had 1 unit therapeutic phlebotomy (6) Tobacco abuse: - Tobacco cessation encouraged at bedside Nicotine patch (7) Pulmonary emphysema: (8) COPD (chronic obstructive pulmonary disease): Chronic respiratory failure with hypoxia Chronic oxygen dependency 5-6 L during the day and CPAP at bedtime Continue home inhalers (9) Opioid dependence: - PDMP reviewed: Follow with provider at [place] - Take morphine sulfate ER 100 mg TID last filled 01/11/22 and morphine sulfate IR 30 mg BID prn which is ordered and was discussed with the pharmacy. - There are prescriptions from 02/10 which are different compared to all other previous prescriptions, which appears to be a significant reduction in pain medication - this is likely an error, and pt states he has not picked up a new rx for this month yet. - Monitor closely with O2 - Bowel regimen with narcotic use, continue linaclotide 145 mg daily (10) Diabetic nephropathy associated with type 2 diabetes mellitus: -Home insulin regimen includes Toujeo 100 mg daily, insulin sliding scale with total daily dose of 100 mg NovoLog -HbA1c 8.2 -ISS with Accu-Cheks ACHS -Glycemic pharmacy consulted (11) Obesity: Morbid Obesity -BMI 40.8, diet and exercise to be encouraged throughout hospital stay and upon discharge DVT px:- teds, scds CODE: Full code Total Time Total Time Spent Total Time Spent (In Minutes): 45 minutes Discharge Plan Discharge Items Patient Disposition: Home - Home Health Services Reason For Visit: Chest Pain, Dyspnea on Exertion, CHF Discharge Diagnosis: Severe coronary artery disease Chronic diastolic heart failure COPD Obstructive sleep apnea Polycythemia Activity: Per Instructions section Exercise/Sports: Gradually increase as tolerated Non-emergency contact: Primary Care Provider and Pack Worker Supervisor Call non-emergency contact if: you have any medication questions, your symptoms worsen, your pain is concerning for you and you have a fever Follow-up/Referrals: Oswaldo Sampson MD [Primary Care Provider] - (Date & Time 02/24/2022 12:00 PM Provider Larry Amaya MD [facility] ) Diet: Carb Consistent or DM2 and Heart Healthy Addtl Attending Provider Instructions: Follow-up with your primary care physician on 02/24/2022 12:00 PM Follow-up with your auto garage attendant Dr. Johnson in 1 week. Medication Changes: 1) Start taking furosemide (Lasix) 80 mg daily for 4 days and then take 40 mg daily as recommended by your auto garage attendant. 2) Start taking rosuvastatin 5 mg daily. 3) start taking Brilinta 90 mg twice a day. --Quit smoking Tobacco as advised Seek immediate medical attention if your symptoms reoccur or worsen Please take all medications as instructed on discharge list below. Please call if you have any questions or problems. You can reach a [facility] hospitalist on duty at [facility] 24 hours a day by calling [phone] Call your Primary Care doctor if any of the following symptoms or problems start or get worse: * Shortness of breath or difficulty breathing * Wake up at night short of breath * Chest pain * Cough * Swelling of your hands, feet, or legs * More fatigued or tired with your normal activity * Palpitations - sudden fast heart beats WEIGHT * Weigh yourself every morning after using the bathroom. * Use the same scale. * Wear the same amount of clothing. * Write your weight down on a chart. * Call your Primary Care doctor if you gain more than 2-3 pounds in 1-2 days. MEDICATIONS * Use this discharge instruction sheet for medication instructions. * Take your medications at the time your doctor ordered. * Do not skip a dose of your medicines. * If you miss a dose of medicine, take it as soon as possible, but DO NOT DOUBLE A DOSE. * Read your medicine information when you get home. * Know all of the side effects of your medicine. If in doubt, ask your pharmacist * Call your Primary Care doctor's office if you have any side effects. * Be sure all of your doctors know what medicine and herbs you take (including cold, flu, and herbal medicine). Take the following with you to your follow-up doctor appointments: * Weight Chart * Medication List * List of questions Do not drink excessive alcohol, beer or wine. Pending Studies at Discharge: No Stand-Alone Forms: My [facility], Smoking Cessation Medications and DC Order Prescriptions: New rosuvastatin 5 mg Tablet 5 mg PO QAM Qty: 30 1RF Brilinta 90 mg Tablet 90 mg PO BID 30 Days Qty: 60 1RF Continued (DME) blood sugar diagnostic Strip See Rx Instructions .ROUTE .MEDSUPPLY Qty: 1100 3RF Rx Instructions: check blood sugar 12 x daily . OneTouch Ultra insulin aspart U-100 [Novolog Flexpen U-100 Insulin] 100 unit/mL (3 mL) insulin pen 100 unit SQ .COMPLEX Qty: 90 1RF Rx Instructions: 100 units subcut inject per sliding scale TDD 100 ---- subcut five times a day; Toujeo SoloStar U-300 Insulin 300 unit/mL (1.5 mL) insulin pen 125 unit SUBCUT DAILY Qty: 40.5 1RF testosterone 20.25 mg/1.25 gram (1.62 %) gel in metered-dose pump 3 pump topical DAILY Qty: 4 0RF Rx Instructions: apply 2 pumps over max area of ONE upper arm and shoulder, 1 pump over OTHER upper arm and shoulder PDMP Queried ok to fill; last filled 10/15/21 - TR (DME) Oxygen Home Liters Per Minute See Rx Instructions .ROUTE .MEDSUPPLY Qty: 1 Rx Instructions: 4 LPM at night with CPAP (DME) blood-glucose meter [OneTouch Verio Flex meter] Misc See Rx Instructions .ROUTE .MEDSUPPLY Rx Instructions: Test blood sugars 2 times a day morphine 100 mg tablet extended release 100 mg PO TID (DME) Dexcom G6 Sensor Device See Rx Instructions .Route Rx Instructions: As directed (DME) Dexcom G6 Resin Coater Misc See Rx Instructions .Route Rx Instructions: As directed (DME) Dexcom G6 Transmitter Device See Rx Instructions .Route Rx Instructions: As directed aspirin 81 mg Tablet,Delayed Release (Dr/Ec) 81 mg PO HS nitroglycerin [Nitrostat] 0.4 mg Tablet, Sublingual 1 tab Sublingual UD PRN (Reason: CHESTPAIN) montelukast 10 mg Tablet 10 mg PO HS albuterol sulfate 90 mcg/actuation Hfa Aerosol Inhaler 2 puff INHALATION Q6H PRN (Reason: Wheezing) pantoprazole 40 mg tablet,delayed release (DR/EC) 40 mg PO HS PRN (Reason: Acid Reflux) Zyrtec 10 mg capsule 10 mg PO DAILY cholecalciferol (vitamin D3) [Vitamin D3] 25 mcg (1,000 unit) capsule 3,000 unit PO HS metoprolol succinate 25 mg tablet extended release 24 hr 25 mg PO BID linaclotide 145 mcg Capsule 145 mcg PO DAILY Rx Instructions: Take before breakfast furosemide 20 mg tablet 40 mg PO QAM morphine 30 mg tablet 30 mg PO BID PRN (Reason: Severe Pain (Scale Score 7-10)) Rx Instructions: breakthrough pain hydroxyzine pamoate [Vistaril] 25 mg capsule 25 mg PO Q8H PRN (Reason: anxiety) 5 Days Qty: 15 1RF Discharge Orders: Discharge Order (Routine); Ordered 02/18/22 Ordered By: Cas Ceron/Other Patient Handouts: Managing Type 2 Diabetes Admission Data Admit Date/Time: 02/17/22 12:45 Attending Provider: Joseph Leach Admit Provider: Joseph Leach Primary Care Provider: Oswaldo Sampson Other Providers: Ga Johnson
[2022-02-19] MEDS ORDERED: ROSUVASTATIN CALCIUM 5 MG TAB PO SCH (09:00)
== END 2022-02-18 12:43 | disposition home or self-care (01) ==
LOC: CC 09:27 → 2E 09:27

== ENCOUNTER 2022-06-13 07:54 | Observation (INO) ==
[2022-06-13 08:40] LABS: Basophils # (auto) 0.04 K/uL (0-0.2); Basophils % (auto) 0.3 %; Eosinophils # (auto) 0.01 K/uL (0-0.50); Eosinophils % (auto) 0.1 %; Hematocrit (blood only) 44.1 % (42.0-52.0); Hemoglobin 13.8 g/dl (14.0-18.0); Immature Granulocytes # (auto) 0.05 K/uL (0.01-0.20); Immature Granulocytes % (auto) 0.4 %; Lymphocytes # (auto) 1.07 K/uL (1.2-3.4); Lymphocytes % (auto) 8.6 %; Mean Corpuscular Hemoglobin 25.1 pg (25.0-34.0); Mean Corpuscular Hgb Conc 31.3 g/dL (32.0-36.0); Mean Corpuscular Volume 80.2 fL (80.0-100.0); Mean Platelet Volume 8.6 fL (9.4-12.4); Monocytes # (auto) 1.02 K/uL (0.11-0.59); Monocytes % (auto) 8.2 %; Neutrophils # (auto) 10.18 K/uL (1.40-6.50); Neutrophils % (auto) 82.4 %; Platelet Count 353 K/uL (130-400); RDW Coefficient of Variation 15.9 % (11.5-14.5); RDW Standard Deviation 45.8 fL (36.4-46.3); White Blood Count 12.37 K/ul (4.8-10.8)
--- NOTE | 2022-06-13 08:41 | Emergency Department Note ---
Impression & Plan Chest pain, Abdominal pain, Leukocytosis ED Provider Note NAME: DAKOTA RIOS AGE: 61 SEX: M : 1960 ARRIVES VIA: Walk-In INFORMANT: Patient ED PROVIDER(S): Sukumar Blandon DO CHIEF COMPLAINT: Abdominal pain HPI: Patient is a 61-year-old male with past medical history of COPD, opiate dependence, CAD, CHF presents to the ER for abdominal pain. He notes is located in the left mid abdomen. It has been present for the past 6 weeks. Denies any headache or change in vision. No chest pain or shortness of breath. Admits to nausea but no vomiting. No dysuria, urgency, or frequency PAST MEDICAL HISTORY:See Below PAST SURGICAL HISTORY:See Below FAMILY HISTORY:See Below SOCIAL HISTORY:See Below HOME MEDICATIONS:See Below ALLERGIES:See Below VITALS:See Below PHYSICAL EXAMINATION: GENERAL: Sitting up in bed, alert, well appearing, well nourished, no distress, non-toxic EYE EXAM: normal conjunctiva. PERRL and EOM's grossly intact. OROPHARYNX: no exudate, no erythema, lips, buccal mucosa, and tongue normal and mucous membranes are moist NECK: supple, no nuchal rigidity, no adenopathy, non-tender LUNGS: Clear to auscultation. Normal chest wall mechanics HEART: no murmurs, S1 normal and S2 normal ABDOMEN: abdomen soft, left mid abdomen tenderness, normo-active bowel sounds, no masses, no rebound or guarding. UPPER EXTREMITIES: upper extremities are grossly normal. LOWER EXTREMITIES: No pitting edema. NEURO EXAM: Normal sensorium, cranial nerves II-XII grossly intact, normal spee ch, no gross weakness of arms, no gross weakness of legs. MEDICAL DECISION MAKING: Patient is a 61-year-old male who presents the ER for the above-stated complaint. IV was established blood work was obtained. Labs show mild leukocytosis 12,000. No significant anemia. BMP along with LFTs bilirubin and lipase is unremarkable. UA was clean. COVID was negative. CT abdomen pelvis showed no acute pathology. He was tender in the left mid abdomen. External records were reviewed. Patient started having intermittent chest pain while here. Was given aspirin nitro. Updated at bedside. Discussed with the hospitalist for further evaluation and management due to the intermittent chest pain. EKG was nondiagnostic. Troponin was negative. Triage Nursing notes reviewed. Limited review of prior medical records performed Vital Signs: reviewed and remarkable for no significant abnormalities Differential diagnosis: Cardiac ischemia, aortic dissection, pulmonary embolism, pneumothorax, pneumonia, pericarditis, myocarditis, esophageal rupture, GERD, cholecystitis, pancreatitis, musculoskeletal, as well as other pathologies. ER treatment provided: See below Diagnostics interpreted by me include EKG and cardiac monitoring as listed below: -Cardiac Monitoring: An order was placed for continuous cardiac monitoring. The monitor shows a rate of 80 with sinus rhythm. -ECG: Sinus rhythm rate of 90 Right bundle branch block QTc 469 -Laboratory studies:Interpreted by me as stated above in MDM and shown below. Imaging studies: Xrays: As interpreted by me: Portable AP upright 1 view of the chest was unremarkable for any focal infiltrate CTs show: CT abdomen pelvis shows no acute pathology Consultation(s): As described in MDM Procedures:none Critical Care: None Past Med/Surg History Medical History Bundle branch block, bilateral Chronic back pain Chronic kidney disease (CKD) Degenerative disc disease Diabetes mellitus, type 2 Diverticular disease GERD (gastroesophageal reflux disease) History of acute pancreatitis RELATED TO A STONE OBSTRUCTION, 10/2017 History of basal cell carcinoma History of SCC (squamous cell carcinoma) of skin History of skin cancer S/P EXCISION OF SCALP Irritable bowel syndrome (IBS) Migraines Obesity Polycythemia, secondary Post traumatic stress disorder Sleep apnea CPAP WITH 4-5 L/MIN HS. S/P UPPP. SOBOE (shortness of breath on exertion) Tachycardia Tinea pedis Surgical History Fusion of spine MULTIPLE LUMBARX2 History of appendectomy History of back surgery History of cardiac cath 2017-NO STENTS History of colonoscopy History of ERCP 11/2017 [facility] History of esophagogastroduodenoscopy (EGD) History of repair of rotator cuff LEFT SHOULDER History of surgery RT ELBOW History of tonsillectomy History of uvulopalatopharyngoplasty FOR TREATMENT OF AR S/P cholecystectomy Family History Other COPD (chronic obstructive pulmonary disease) Cancer Diabetes Heart disease Hypertension Social History Smoking Status: Current every day smoker Tobacco Type: Cigarettes packs per day: 1; Cigarettes Per Day: 1 PPD; Second Hand Exposure: No; Hx Alcohol Use: No Hx Substance Use: No Preferred Language: Cuban Communication Ability: Effective 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: No Beliefs That Will Affect Care: None marital status: Current Living Situation: Spouse Current Living Situation Comment: [place] Feels Safe at Home: Yes Assistive Devices: Cane and Walker Allergies Allergies Allergy/AdvReac Type Severity Reaction Status Date / Time clarithromycin Allergy Severe DAMAGED Verified 06/07/22 14:57 LIVER PER PT-REQUIRED HOSPITALIZATION adhesive AdvReac Mild SKIN Verified 06/07/22 14:57 RASH-WITH SOME TAPES Uncoded Nonscreenable Allergy Intermediate PLASTICS: Uncoded 06/07/22 14:57 Allergen BLISTERS GLP-1RA AdvReac Unknown Hx of Uncoded 06/07/22 14:57 Pancreatitis Home Meds Home Medications Medication Instructions Recorded Confirmed albuterol sulfate 90 mcg/actuation 2 puff inhalation Q6H PRN Wheezing 06/26/18 06/13/22 aerosol inhaler montelukast 10 mg tablet 10 mg PO HS 06/26/18 06/13/22 nitroglycerin 0.4 mg sublingual 1 tab sublingual UD PRN CHESTPAIN 06/26/18 06/13/22 tablet (Nitrostat) pantoprazole 40 mg tablet,delayed 40 mg PO BID 01/28/19 06/13/22 release Oxygen Home #1 ea 04/30/19 06/13/22 aspirin 81 mg tablet,delayed 81 mg PO HS 03/12/20 06/13/22 release blood-glucose meter (OneTouch 08/14/20 06/13/22 Verio Flex Meter) blood-glucose meter,continuous 02/03/21 06/13/22 (DexEnlyton G6 Supervisor Mails) blood-glucose sensor (Dexcom G6 02/03/21 06/13/22 Sensor device) blood-glucose transmitter (Dexcom 02/03/21 06/13/22 G6 Transmitter device) cetirizine 10 mg capsule (Zyrtec) 10 mg PO DAILY PRN Allergy Symptoms 03/05/21 06/13/22 cholecalciferol (vitamin D3) 25 3,000 unit PO HS 03/05/21 06/13/22 mcg (1,000 unit) capsule (Vitamin D3) metoprolol succinate 25 mg 25 mg PO AMHS Other 08/04/21 06/13/22 tablet,extended release 24 hr morphine 100 mg tablet,extended 100 mg PO TID 10/12/21 06/13/22 release morphine 30 mg immediate release 30 mg PO TID PRN Severe Pain 02/17/22 06/13/22 tablet (Scale Score 7-10) clopidogrel 75 mg tablet 75 mg PO QAM 05/16/22 06/13/22 lubiprostone 24 mcg capsule 24 mcg PO BID 05/16/22 06/13/22 (Amitiza) coenzyme Q10 100 mg capsule (Co 100 mg PO DAILY 06/10/22 06/13/22 Q-10) hydromorphone 4 mg tablet 4 - 8 mg PO .Q4-6H PRN Pain 06/10/22 06/13/22 rosuvastatin 5 mg tablet 2.5 mg PO QAM 06/10/22 06/13/22 sucralfate 1 gram tablet 1 g PO ACHS 06/10/22 06/13/22 testosterone 1 pump topical DAILY 06/10/22 06/13/22 budesonide 0.5 mg/2 mL suspension 0.5 mg inhalation BID PRN copd exac 06/13/22 06/13/22 for nebulization furosemide 20 mg tablet 40 mg PO BID 06/13/22 06/13/22 insulin glargine U-300 conc 300 140 unit subcut DAILY 06/13/22 06/13/22 unit/mL (1.5 mL) subcutaneous pen (Toujeo SoloStar U-300 Insulin) Previous Rx's Medication Instructions Recorded hydroxyzine pamoate 25 mg capsule 25 mg PO Q8H PRN anxiety 5 days 06/16/21 (Vistaril) #15 caps blood sugar diagnostic #1,100 ea 07/13/21 insulin aspart U-100 100 unit/mL 100 unit subcut .COMPLEX #90 mL 08/31/21 (3 mL) subcutaneous pen (Novolog FlexPen U-100 Insulin aspart) Results & Data (ED) Vital Signs Vital Signs - 24 hr 06/13/22 07:58 06/13/22 08:19 06/13/22 08:20 Temperature 36.5 C Temperature Source Temporal Artery Scan Pulse Rate 86 90 Pulse Rate [Apical] 91 H Pulse Rate from SpO2 Sensor Respiratory Rate 20 18 Respiratory Effort / Characteristics Non-Labored Non-Labored Spontaneous Respiratory Depth Normal Normal Respiratory Pattern Regular Regular Blood Pressure 185/80 H Blood Pressure [Right Arm] 175/139 H Blood Pressure Mean 115 Blood Pressure Mean [Right Arm] 151 Blood Pressure Position Sitting Blood Pressure Position [Right Arm] Sitting Pulse Oximetry 96 97 Oxygen Delivery Method Room Air Room Air Sepsis Recent Fever Within 48 Hours No Sepsis New/Unexplained Change in Mental Status No Sepsis Action Taken by Nursing No Action Required 06/13/22 08:22 06/13/22 09:21 06/13/22 09:30 Temperature Temperature Source Pulse Rate 91 H 89 89 Pulse Rate [Apical] Pulse Rate from SpO2 Sensor 88 Respiratory Rate 18 16 15 Respiratory Effort / Characteristics Respiratory Depth Respiratory Pattern Blood Pressure 199/90 H 181/86 H Blood Pressure [Right Arm] Blood Pressure Mean 126 117 Blood Pressure Mean [Right Arm] Blood Pressure Position Blood Pressure Position [Right Arm] Pulse Oximetry 97 95 97 Oxygen Delivery Method Room Air Room Air Room Air Sepsis Recent Fever Within 48 Hours Sepsis New/Unexplained Change in Mental Status Sepsis Action Taken by Nursing 06/13/22 10:00 06/13/22 10:30 06/13/22 11:00 Temperature Temperature Source Pulse Rate 76 93 H 82 Pulse Rate [Apical] Pulse Rate from SpO2 Sensor 77 91 H 81 Respiratory Rate 12 20 16 Respiratory Effort / Characteristics Respiratory Depth Respiratory Pattern Blood Pressure 159/65 H 174/83 H 174/76 H Blood Pressure [Right Arm] Blood Pressure Mean 96 113 108 Blood Pressure Mean [Right Arm] Blood Pressure Position Blood Pressure Position [Right Arm] Pulse Oximetry 93 96 96 Oxygen Delivery Method Room Air Room Air Room Air Sepsis Recent Fever Within 48 Hours Sepsis New/Unexplained Change in Mental Status Sepsis Action Taken by Nursing 06/13/22 11:30 06/13/22 12:00 06/13/22 12:20 Temperature Temperature Source Pulse Rate 73 76 78 Pulse Rate [Apical] Pulse Rate from SpO2 Sensor 74 78 Respiratory Rate 16 19 Respiratory Effort / Characteristics Respiratory Depth Respiratory Pattern Blood Pressure 150/71 H 183/109 H Blood Pressure [Right Arm] Blood Pressure Mean 97 133 Blood Pressure Mean [Right Arm] Blood Pressure Position Blood Pressure Position [Right Arm] Pulse Oximetry 94 96 Oxygen Delivery Method Room Air Room Air Sepsis Recent Fever Within 48 Hours Sepsis New/Unexplained Change in Mental Status Sepsis Action Taken by Nursing 06/13/22 12:30 06/13/22 13:00 Temperature Temperature Source Pulse Rate 70 79 Pulse Rate [Apical] Pulse Rate from SpO2 Sensor 69 77 Respiratory Rate 18 20 Respiratory Effort / Characteristics Respiratory Depth Respiratory Pattern Blood Pressure 166/76 H 175/77 H Blood Pressure [Right Arm] Blood Pressure Mean 106 109 Blood Pressure Mean [Right Arm] Blood Pressure Position Blood Pressure Position [Right Arm] Pulse Oximetry 94 97 Oxygen Delivery Method Room Air Room Air Sepsis Recent Fever Within 48 Hours Sepsis New/Unexplained Change in Mental Status Sepsis Action Taken by Nursing Laboratory Data 06/13/22 08:12 06/13/22 08:12 Lab Results 06/13/22 06/13/22 06/13/22 Range/Units 08:12 08:12 08:12 WBC 12.37 H (4.8-10.8) K/ul RBC 5.50 (4.70-6.10) M/uL Hgb 13.8 L (14.0-18.0) g/dl Hct 44.1 (42.0-52.0) % MCV 80.2 (80.0-100.0) fL MCH 25.1 (25.0-34.0) pg MCHC 31.3 L (32.0-36.0) g/dL RDW Std Deviation 45.8 (36.4-46.3) fL RDW Coeff of Ben 15.9 H (11.5-14.5) % Plt Count 353 (130-400) K/uL MPV 8.6 L (9.4-12.4) fL Immature Gran % (Auto) 0.4 % Neut % (Auto) 82.4 % Lymph % (Auto) 8.6 % Casey % (Auto) 8.2 % Eos % (Auto) 0.1 % Baso % (Auto) 0.3 % Neut # (Auto) 10.18 H (1.40-6.50) K/uL Lymph # (Auto) 1.07 L (1.2-3.4) K/uL Casey # (Auto) 1.02 H (0.11-0.59) K/uL Eos # (Auto) 0.01 (0-0.50) K/uL Baso # (Auto) 0.04 (0-0.2) K/uL Immature Gran # (Auto) 0.05 (0.01-0.20) K/uL Sodium 134 L (136-145) mmol/L Potassium 4.4 (3.5-5.1) mmol/L Chloride 98 (98-107) mmol/L Carbon Dioxide 29 (21-32) mmol/L Anion Gap 7 (3-11) BUN 14 (6-23) mg/dl Creatinine 1.06 (0.6-1.4) mg/dl Est Cr Clr Drug Dosing 90.1 ml/min Est GFR ( Amer) 88.6 ml/min Est GFR (Non-Af Amer) 76.4 ml/min BUN/Creatinine Ratio 13.2 (10-20) Glucose 197 H (70-99(Fasting)) mg/dl Calcium 9.4 (8.5-10.1) mg/dl Total Bilirubin 0.5 (0.2-1.0) mg/dl AST 21 (13-39) U/L ALT 26 (7-52) U/L Alkaline Phosphatase 71 (34-104) U/L Troponin I High Sens 11.7 (0-20) pg/ml Total Protein 6.8 (6.0-8.3) gm/dl Albumin 4.1 (3.4-5.0) gm/dl Globulin 2.7 (2.5-4.0) gm/dl Albumin/Globulin Ratio 1.5 (0.9-2) Lipase 19 (11-82) U/L Urine Color Dark Yellow Urine Appearance Clear (Clear) Urine pH 6.0 (4.5-7.5) Ur Specific [place] 1.030 (1.000-1.030) Urine Protein 4+ H (Negative) Urine Glucose (UA) 1+ H (Negative) Urine Ketones 2+ H (Negative) Urine Blood 3+ H (Negative) Urine Nitrite Negative (Negative) Urine Bilirubin Negative (Negative) Urine Urobilinogen Negative (Negative) Ur Leukocyte Esterase Negative (Negative) Urine WBC (Auto) 1-5 (0-5) /hpf Urine RBC (Auto) 5-10 H (0-4) /hpf U Hyaline Cast (Auto) 5-10 H (0-5) /lpf U Epithel Cells (Auto) 10-20 H (0-5) /lpf Urine Bacteria (Auto) Negative (Negative) SARS-CoV-2, RNA, NAAT (NEGATIVE) 06/13/22 06/13/22 06/13/22 Range/Units 08:12 10:55 11:10 WBC (4.8-10.8) K/ul RBC (4.70-6.10) M/uL Hgb (14.0-18.0) g/dl Hct (42.0-52.0) % MCV (80.0-100.0) fL MCH (25.0-34.0) pg MCHC (32.0-36.0) g/dL RDW Std Deviation (36.4-46.3) fL RDW Coeff of Ben (11.5-14.5) % Plt Count (130-400) K/uL MPV (9.4-12.4) fL Immature Gran % (Auto) % Neut % (Auto) % Lymph % (Auto) % Casey % (Auto) % Eos % (Auto) % Baso % (Auto) % Neut # (Auto) (1.40-6.50) K/uL Lymph # (Auto) (1.2-3.4) K/uL Casey # (Auto) (0.11-0.59) K/uL Eos # (Auto) (0-0.50) K/uL Baso # (Auto) (0-0.2) K/uL Immature Gran # (Auto) (0.01-0.20) K/uL Sodium (136-145) mmol/L Potassium (3.5-5.1) mmol/L Chloride (98-107) mmol/L Carbon Dioxide (21-32) mmol/L Anion Gap (3-11) BUN (6-23) mg/dl Creatinine (0.6-1.4) mg/dl Est Cr Clr Drug Dosing ml/min Est GFR ( Amer) ml/min Est GFR (Non-Af Amer) ml/min BUN/Creatinine Ratio (10-20) Glucose (70-99(Fasting)) mg/dl Calcium (8.5-10.1) mg/dl Total Bilirubin (0.2-1.0) mg/dl AST (13-39) U/L ALT (7-52) U/L Alkaline Phosphatase (34-104) U/L Troponin I High Sens Cancelled 10.7 (0-20) pg/ml Total Protein (6.0-8.3) gm/dl Albumin (3.4-5.0) gm/dl Globulin (2.5-4.0) gm/dl Albumin/Globulin Ratio (0.9-2) Lipase (11-82) U/L Urine Color Urine Appearance (Clear) Urine pH (4.5-7.5) Ur Specific [place] (1.000-1.030) Urine Protein (Negative) Urine Glucose (UA) (Negative) Urine Ketones (Negative) Urine Blood (Negative) Urine Nitrite (Negative) Urine Bilirubin (Negative) Urine Urobilinogen (Negative) Ur Leukocyte Esterase (Negative) Urine WBC (Auto) (0-5) /hpf Urine RBC (Auto) (0-4) /hpf U Hyaline Cast (Auto) (0-5) /lpf U Epithel Cells (Auto) (0-5) /lpf Urine Bacteria (Auto) (Negative) SARS-CoV-2, RNA, NAAT NEGATIVE (NEGATIVE) Administered Medications Discontinued Medications Aspirin (Aspirin Chew 324 Mg) 324 mg PO NOW STA Stop: 06/13/22 10:33 Last Admin: 06/13/22 10:53 Dose: 324 mg Documented By: NOEMÍ Sodium Chloride (Nss 1000ml) 1,000 mls @ 999 mls/hr IV .Q1H1M ONE Stop: 06/13/22 10:07 Last Admin: 06/13/22 09:27 Dose: Not Given Documented By: NOEMÍ Ioversol (Optiray 350 100ml) 94 ml IV ONCE ONE Stop: 06/13/22 09:08 Last Admin: 06/13/22 09:07 Dose: 94 ml Documented By: ALICE Morphine Sulfate (Morphine Sulfate 10 Mg/Ml Carp/Vial) 6 mg IV NOW STA Stop: 06/13/22 09:08 Last Admin: 06/13/22 09:20 Dose: 6 mg Documented By: NOEMÍ Ondansetron HCl (Ondansetron Inj 2 Mg/Ml 2 Ml Vial) 4 mg IV NOW STA Stop: 06/13/22 09:08 Last Admin: 06/13/22 09:20 Dose: 4 mg Documented By: NOEMÍ Ondansetron HCl (Ondansetron Inj 2 Mg/Ml 2 Ml Vial) 4 mg IV NOW STA Stop: 06/13/22 11:59 Last Admin: 06/13/22 12:21 Dose: 4 mg Documented By: KJS Imaging Data Radiologist's Impression: Abdomen/Pelvis CT 06/13/22 08:48 CT abd pelvis IV con only CLINICAL HISTORY: abd l mid abd TECHNIQUE: Helical axial images of the abdomen and pelvis were obtained and dis played. Automated dose lowering techniques and/or adjustment according to patient size were utilized for this exam. This exam was performed with intravenous contrast. CT DOSE: 1479.18 mGy.cm COMPARISON: Comparison is made to CT abdomen pelvis 06/10/2022 FINDINGS: Lower chest: Bibasilar atelectasis versus scarring is seen. Liver: Hepatic steatosis is noted. Gallbladder and biliary tree: Patient is status post cholecystectomy. Hypodensities about the gallbladder fossa are again seen. Physiologic prominence of the biliary ducts is noted. Pancreas: Unremarkable, no focal lesions. Spleen: Unremarkable. Adrenals: Unremarkable. Kidneys and ureters: Perinephric stranding is noted bilaterally. Bladder: Unremarkable. Reproductive organs: Unremarkable. Bowel: Diverticulosis is seen without evidence of diverticulitis. Patient is status post appendectomy. Lymph nodes Retroperitoneal: Unremarkable. Pelvic: Unremarkable. Mesenteric: Unremarkable. Peritoneum: Normal. Vessels: Atherosclerotic calcifications are seen. Abdominal wall: Unremarkable. Bones: Degenerative changes in the visualized spine. Orthopedic hardware spans L4-S1. IMPRESSION: No acute abnormalities and in particular no evidence of bowel obstruction. Diverticulosis is seen without diverticulitis. ACT 112: Negative or not required by law. Electronically signed by: Krish Clark M.D. 06/13/2022 9:29 AM Venous Doppler Study 06/13/22 13:02 BILATERAL LOWER EXTREMITY VENOUS DOPPLER HISTORY: Bilateral leg swelling COMPARISON STUDY: None. FINDINGS: There is normal compressibility, flow, and augmentation within the bilateral lower extremity deep venous systems. IMPRESSION: No DVT within the right or left lower extremity. ACT 112: Negative or not required by law. Electronically signed by: Aubrey Cee M.D. 06/13/2022 2:03 PM Discharge Plan Visit Data Chief Complaint: Abdominal Pain Stated Complaint: POSSIBLE STOMACH ULCER ED Provider: Sukumar Blandon Discharge Problem: Chest pain, Abdominal pain, Leukocytosis Discharge Instructions Interventions: ED Discharge Assessment Last Done: 06/13/22 14:23 Forms Stand Alone Forms: My [facility] Prescriptions Prescriptions: No Action (DME) blood sugar diagnostic Strip See Rx Instructions .ROUTE .MEDSUPPLY Qty: 1100 3RF Rx Instructions: check blood sugar 12 x daily . OneTouch Ultra insulin aspart U-100 [Novolog FlexPen U-100 Insulin] 100 unit/mL (3 mL) insulin pen 100 unit SQ .COMPLEX Qty: 90 1RF Rx Instructions: 20 units up to 100 units a day with each meal (DME) Oxygen Home Liters Per Minute See Rx Instructions .ROUTE .MEDSUPPLY Qty: 1 Rx Instructions: 4 LPM at night with CPAP (DME) blood-glucose meter [OneTouch Verio Flex meter] Misc See Rx Instructions .ROUTE .MEDSUPPLY Rx Instructions: Test blood sugars 2 times a day morphine 100 mg tablet extended release 100 mg PO TID (DME) Dexcom G6 Sensor Device See Rx Instructions .Route Rx Instructions: As directed (DME) Dexcom G6 Supervisor Mails Misc See Rx Instructions .Route Rx Instructions: As directed (DME) Dexcom G6 Transmitter Device See Rx Instructions .Route Rx Instructions: As directed aspirin 81 mg Tablet,Delayed Release (Dr/Ec) 81 mg PO HS nitroglycerin [Nitrostat] 0.4 mg Tablet, Sublingual 1 tab Sublingual UD PRN (Reason: CHESTPAIN) montelukast 10 mg Tablet 10 mg PO HS Rx Instructions: hasn't been taking albuterol sulfate 90 mcg/actuation Hfa Aerosol Inhaler 2 puff INHALATION Q6H PRN (Reason: Wheezing) pantoprazole 40 mg tablet,delayed release (DR/EC) 40 mg PO BID Zyrtec 10 mg capsule 10 mg PO DAILY PRN (Reason: Allergy Symptoms) cholecalciferol (vitamin D3) [Vitamin D3] 25 mcg (1,000 unit) capsule 3,000 unit PO HS metoprolol succinate 25 mg tablet extended release 24 hr 25 mg PO AMHS morphine 30 mg tablet 30 mg PO TID PRN (Reason: Severe Pain (Scale Score 7-10)) Rx Instructions: breakthrough pain clopidogrel 75 mg tablet 75 mg PO QAM lubiprostone [Amitiza] 24 mcg Capsule 24 mcg PO BID sucralfate 1 gram tablet 1 g PO ACHS Rx Instructions: before meals and bedtime hydromorphone 4 mg tablet 4 - 8 mg PO .Q4-6H PRN (Reason: Pain) coenzyme Q10 [Co Q-10] 100 mg Capsule 100 mg PO DAILY rosuvastatin 5 mg tablet 2.5 mg PO QAM testosterone 20.25 mg/1.25 gram (1.62 %) gel in metered-dose pump 1 pump topical DAILY Rx Instructions: PDMP Queried ok to fill; last filled 10/15/21 - TR hydroxyzine pamoate [Vistaril] 25 mg capsule 25 mg PO Q8H PRN (Reason: anxiety) 5 Days Qty: 15 1RF budesonide 0.5 mg/2 mL suspension for nebulization 0.5 mg inhalation BID PRN (Reason: copd exac) furosemide 20 mg tablet 40 mg PO BID Rx Instructions: stopped 3 days ago Toujeo SoloStar U-300 Insulin 300 unit/mL (1.5 mL) insulin pen 140 unit SUBCUT DAILY Rx Instructions: has been taking 75-80 Referrals Referrals: Oswaldo Sampson MD [Primary Care Provider] -
[2022-06-13 08:50] LABS: Appearance Urine Clear (Clear); Bacteria Urine Automated Negative (Negative); Bilirubin Urine Negative (Negative); Blood Urine 3+ (Negative); Color Urine Dark Yellow; Glucose Urine UA 1+ (Negative); Ketones Urine 2+ (Negative); Leukocyte Esterase Urine Negative (Negative); Nitrite Urine Negative (Negative); Protein Urine 4+ (Negative); Urobilinogen Urine Negative (Negative)
[2022-06-13 08:52] LABS: Albumin Globulin Ratio 1.5 (0.9-2); Albumin Level 4.1 gm/dl (3.4-5.0); BUN Creatinine Ratio 13.2 (10-20); Bilirubin,Total 0.5 mg/dl (0.2-1.0); Calcium 9.4 mg/dl (8.5-10.1); Creatinine Clr Calc Pharmacy 90.1 ml/min; Est GFR (African American) 88.6 ml/min; Est GFR (Non-African American) 76.4 ml/min; Globulin 2.7 gm/dl (2.5-4.0); Potassium 4.4 mmol/L (3.5-5.1); Total Protein 6.8 gm/dl (6.0-8.3)
[2022-06-13] MEDS ORDERED: OPTIRAY 350 100ml IV ONE (09:07)
[2022-06-13] MEDS ORDERED: MoRPHine SULFATE 10 MG/ML CARP/VIAL IV STA (09:07)
[2022-06-13] MEDS ORDERED: ONDANSETRON INJ 2 MG/ML 2 ML VIAL IV STA ×2 (09:07→11:58)
[2022-06-13] MEDS ORDERED: SODIUM CHLORIDE 0.9% 1000ML 1,000 ML IV ONE (09:07)
--- NOTE | 2022-06-13 09:31 | CT Scan Report ---
CT abd pelvis IV con only CLINICAL HISTORY: abd l mid abd TECHNIQUE: Helical axial images of the abdomen and pelvis were obtained and displayed. Automated dose lowering techniques and/or adjustment according to patient size were utilized for this exam. This e xam was performed with intravenous contrast. CT DOSE: 1479.18 mGy.cm COMPARISON: Comparison is made to CT abdomen pelvis 06/10/2022 FINDINGS: Lower chest: Bibasilar atelectasis versus scarring is seen. Liver: Hepatic steatosis is noted. Gallbladder and biliary tree: Patient is status post cholecystectomy. Hypodensities about the gallbla dder fossa are again seen. Physiologic prominence of the biliary ducts is noted. Pancreas: Unremarkable, no focal lesions. Spleen: Unremarkable. Adrenals: Unremarkable. Kidneys and ureters: Perinephric stranding is noted bilaterally. Bladder: Unremarkable. Reproductive organs: Unremarkable. Bowel: Diverticulosis is seen without evidence of diverticulitis. Patient is status post appendectomy . Lymph nodes Retroperitoneal: Unremarkable. Pelvic: Unremarkable. Mesenteric: Unremarkable. Peritoneum: Normal. Vessels: Atherosclerotic calcifications are seen. Abdominal wall: Unremarkable. Bones: Degenerative changes in the visualized spine. Orthopedic hardware spans L4-S1. IMPRESSION: No acute abnormalities and in particular no evidence of bowel obstruction. Diverticulosis is seen wit hout diverticulitis. ACT 112: Negative or not required by law. Electronically signed by: Krish Clark M.D. 06/13/2022 9:29 AM
[2022-06-13] MEDS ORDERED: ASPIRIN CHEW 324 MG PO STA (10:32)
[2022-06-13] MEDS ORDERED: NITROGLYCERIN SL 0.4 MG/TAB TAB SL PRN (10:32)
[2022-06-13 10:51] LABS: Troponin I High Sensitivity 11.7 pg/ml (0-20)
--- NOTE | 2022-06-13 12:42 | Electrocardiogram Report ---
Test Reason : Blood Pressure : / mmHG Vent. Rate : 088 BPM Atrial Rate : 088 BPM P-R Int : 140 ms QRS Dur : 128 ms QT Int : 386 ms P-R-T Axes : 056 -50 016 degrees QTc Int : 467 ms Normal sinus rhythm Right bundle branch block Left anterior fascicular block Bifascicular block Abnormal ECG When compared with ECG of 10-JUN-2022 11:38, No significant change was found Confirmed by Herbert Mahoney ([id number]) on 06/13/2022 12:42:39 PM Referred By: REFERRED SELF Confirmed By:Herbert Mahoney
--- NOTE | 2022-06-13 13:12 | History & Physical Report ---
Date of Service June 13, 2022 Assessment & Plan (1) Abdominal pain: (2) CAD (coronary artery disease): (3) Chronic diastolic CHF (congestive heart failure): (4) Type 2 diabetes mellitus with insulin therapy: (5) Obesity: (6) Polycythemia, secondary: (7) COPD (chronic obstructive pulmonary disease): Plan This is a 61-year-old male who has a significant past medical history of insulin-dependent T2DM, diabetic polyneuropathy, AR on CPAP 4 L of oxygen at at bedtime, COPD, chronic diastolic and right heart failure, CAD, HTN, secondary polycythemia receiving phlebotomy every 2 to 3 weeks and failed back syndrome who presents to ED secondary to left upper quadrant abdominal pain for the past 4 to 5 weeks. Left upper quadrant abdominal pain CT: no acute abn, b/l perinephritic stranding present on multiple CT since Apr 2022 pt is on high dose narcotics due to failed back syndrome no apparent source of pain will consult GI he is on PPI bid and carafate which he felt helped initially but not as on late - will continue aggressive bowel regimen, resume amitiza and add daily miralax and bid Senna S prn Simethicone pt has been seen by gen surg as outpt diet as tolerated Chest pain pt reports cp associated with peak levels of pain likely associated to pain, not reproducible given recent stent will trend trops currently CP free, ECG w/o st change, initial trop negative CAD, hx of BYRON to LAD 02/2022 Chronic HFpEF with right sided failure HTN Bifascicular block pt stopped lasix for past 3-4 days has increased pedal edema resume lasix continue metoprolol, statin Continue dual antiplatelet therapy uninterrupted for 6 months per cardiology IDDM, T2 lantus/novolog per protocol A1c 8.6 03/28/2022 Consult glycemic pharmacy Given patient's significant reduced intake will reduce long-acting insulin NovoLog per protocol Microscopic hematuria Bilateral perinephric stranding is seen on CAT scan Discussed with urology, recommend outpatient eval they set up OP follow up AR on CPAP Nocturnal hypoxemia CPAP and oxygen at bedtime Secondary polycythemia Patient gets as needed for phlebotomy typically every 2 to [address] Cox Tobacco abuse Nicotine patch Encourage cessation, patient is working on it Failed back syndrome Chronic pain Lumbar surgery x 6 pt follows [facility] [place] [facility] pain management Morphine 100mg TID, prn Morphine 30mg BID prn, Dilaudid 4mg q4hr prn DVT ppx: SQ Lovenox, pt with b/l edema, likely due to missed lasix but will obtain b/l venous Doppler Dispo: med tele FULL CODE PCP: Dr. Sampson A total of 120 minutes was spent with greater than 50% of that time personally viewing all current laboratory work and diagnostic imaging studies obtained in the ED. Additionally, I was able to view the patients past medication reconciliation and history with direct visualization in the patients chart. Included in the time above, a portion of that time was spent assessing the patient while discussing and collaborating with specialists, if necessary, and making medical decision making on treatment plan. All of the above was collaborated with Dr. Sarabia. Please see addendum for further details. History of Present Illness Chief Complaint: LUQ abd pain x 4-5 weeks. Primary Care Provider: Oswaldo Sampson MD This is a 61-year-old male who has a significant past medical history of insulin-dependent T2DM, diabetic polyneuropathy, AR on CPAP 4 L of oxygen at at bedtime, COPD, chronic diastolic and right heart failure, CAD, HTN, secondary polycythemia receiving phlebotomy every 2 to 3 weeks and failed back syndrome who presents to ED secondary to left upper quadrant abdominal pain for the past 4 to 5 weeks. Of significance patient was hospitalized February 2022 after sustaining an acute [place] receiving 1 BYRON to LAD. He is currently maintained on dual antiplatelet therapy. Of note over the past 4 to 5 weeks he has been experiencing this left upper quadrant abdominal pain. Pain is constant and occasionally radiates over to the umbilicus but waxes and wanes in severity. He is unable to pinpoint what makes pain worse and states that stretching seems to make it better. He has associated nausea, chills, sweats and chest pain associated with the severe pain. Of significance patient has failed back syndrome and chronic pain due to 6 previous back surgeries. He states during his second back surgery in the an anterior approach was performed and since then he has had numbness to his left lower quadrant and proximal aspect of left upper thigh. Due to chronic pain syndrome he is on high-dose narcotics morphine 100 mg 3 times a day as well as as needed morphine IR and Dilaudid. He is on Amitiza for constipation. He states due to the pain he is weaned off several his medications to try to delineate cause. He has stopped his Amitiza and Lasix for the past 2 to 3 days. His last bowel movement was very small and was this morning otherwise it was probably 3 to 4 days ago. He was seen in the ER on 06/[address] abdomen pelvis at that time revealed no acute abnormality. Today while in the ER at the peak of his abdominal pain he also experienced substernal chest pain that was nonradiating. This was associated with lightheadedness and nausea. It lasted approximately 5 minutes and resolved on its own. An EKG was performed at that time revealed no significant ST or T wave change. He was given a full dose aspirin. Due to abdominal pain and chest pain he has been recommended for admission to hospital. Of significance he was evaluated by general surgery as an outpatient and underwent evaluation of inguinal hernias which was negative. He would like to get established with GI however has been unable to get an appointment as an outpatient. In ED patient made hemodynamically stable although he was significantly hypertensive. His CBC revealed mild elevation WBC at 12.37, H&H 13.8 and 44.1, sodium 134, glucose 197, Trope 10.7 and urinalysis with significant protein and blood but no evidence of infection. CT scan today again negative for any acute abnormality, diverticulosis is seen without diverticulitis, bilateral nonspecific perinephritic stranding is again noted. Pt states, "If i have to live with this pain I would rather ." Allergies Allergy/AdvReac Type Severity Reaction Status Date / Time clarithromycin Allergy Severe DAMAGED Verified 06/14/22 10:01 LIVER PER PT-REQUIRED HOSPITALIZATION adhesive AdvReac Mild SKIN Verified 06/14/22 10:01 RASH-WITH SOME TAPES Uncoded Nonscreenable Allergy Intermediate PLASTICS: Uncoded 06/14/22 10:01 Allergen BLISTERS GLP-1RA AdvReac Unknown Hx of Uncoded 06/14/22 10:01 Pancreatitis Home Medications Medication Instructions Recorded Confirmed Type albuterol sulfate 90 mcg/actuation 2 puff inhalation Q6H PRN Wheezing 06/26/18 06/13/22 History aerosol inhaler montelukast 10 mg tablet 10 mg PO HS 06/26/18 06/13/22 History nitroglycerin 0.4 mg sublingual 1 tab sublingual UD PRN CHESTPAIN 06/26/18 06/13/22 History tablet (Nitrostat) pantoprazole 40 mg tablet,delayed 40 mg PO BID 01/28/19 06/13/22 History release Oxygen Home #1 ea 04/30/19 06/13/22 History aspirin 81 mg tablet,delayed 81 mg PO HS 03/12/20 06/13/22 History release blood-glucose meter (OneTouch 08/14/20 06/13/22 History Verio Flex Meter) blood-glucose meter,continuous 02/03/21 06/13/22 History (Dexcom G6 Furniture Builder) blood-glucose sensor (Dexcom G6 02/03/21 06/13/22 History Sensor device) blood-glucose transmitter (Dexcom 02/03/21 06/13/22 History G6 Transmitter device) cetirizine 10 mg capsule (Zyrtec) 10 mg PO DAILY PRN Allergy Symptoms 03/05/21 06/13/22 History cholecalciferol (vitamin D3) 25 3,000 unit PO HS 03/05/21 06/13/22 History mcg (1,000 unit) capsule (Vitamin D3) hydroxyzine pamoate 25 mg capsule 25 mg PO Q8H PRN anxiety 5 days 06/16/21 06/13/22 Rx (Vistaril) #15 caps blood sugar diagnostic #1,100 ea 07/13/21 06/13/22 Rx metoprolol succinate 25 mg 25 mg PO AMHS Other 08/04/21 06/13/22 History tablet,extended release 24 hr insulin aspart U-100 100 unit/mL 100 unit subcut .COMPLEX #90 mL 08/31/21 06/13/22 Rx (3 mL) subcutaneous pen (Novolog FlexPen U-100 Insulin aspart) morphine 100 mg tablet,extended 100 mg PO TID 10/12/21 06/13/22 History release morphine 30 mg immediate release 30 mg PO TID PRN Severe Pain 02/17/22 06/13/22 History tablet (Scale Score 7-10) clopidogrel 75 mg tablet 75 mg PO QAM 05/16/22 06/13/22 History lubiprostone 24 mcg capsule 24 mcg PO BID 05/16/22 06/13/22 History (Amitiza) coenzyme Q10 100 mg capsule (Co 100 mg PO DAILY 06/10/22 06/13/22 History Q-10) hydromorphone 4 mg tablet 4 - 8 mg PO .Q4-6H PRN Pain 06/10/22 06/13/22 History rosuvastatin 5 mg tablet 2.5 mg PO QAM 06/10/22 06/13/22 History sucralfate 1 gram tablet 1 g PO ACHS 06/10/22 06/13/22 History testosterone 1 pump topical DAILY 06/10/22 06/13/22 History budesonide 0.5 mg/2 mL suspension 0.5 mg inhalation BID PRN copd exac 06/13/22 06/13/22 History for nebulization furosemide 20 mg tablet 40 mg PO BID 06/13/22 06/13/22 History insulin glargine U-300 conc 300 140 unit subcut DAILY 06/13/22 06/13/22 History unit/mL (1.5 mL) subcutaneous pen (Toujeo SoloStar U-300 Insulin) Past Med/Surg History Medical History Bundle branch block, bilateral Chronic back pain Chronic kidney disease (CKD) Degenerative disc disease Diabetes mellitus, type 2 Diverticular disease GERD (gastroesophageal reflux disease) History of acute pancreatitis RELATED TO A STONE OBSTRUCTION, 10/2017 History of basal cell carcinoma History of SCC (squamous cell carcinoma) of skin History of skin cancer S/P EXCISION OF SCALP Irritable bowel syndrome (IBS) Migraines Morbid obesity Obesity Polycythemia, secondary Post traumatic stress disorder Postlaminectomy syndrome of lumbosacral region Sleep apnea CPAP WITH 4-5 L/MIN HS. S/P UPPP. SOBOE (shortness of breath on exertion) Tachycardia Therapeutic opioid-induced constipation (OIC) Tinea pedis Surgical History Fusion of spine MULTIPLE LUMBARX2 History of appendectomy History of back surgery History of cardiac cath 2017-NO STENTS History of colonoscopy History of ERCP 11/2017 [facility] History of esophagogastroduodenoscopy (EGD) History of repair of rotator cuff LEFT SHOULDER History of surgery RT ELBOW History of tonsillectomy History of uvulopalatopharyngoplasty FOR TREATMENT OF AR S/P cholecystectomy Family History Other COPD (chronic obstructive pulmonary disease) Cancer Diabetes Heart disease Hypertension Social History Smoking Status: Current every day smoker Tobacco Type: Cigarettes packs per day: 1; Cigarettes Per Day: 20; Second Hand Exposure: No; Hx Alcohol Use: No Hx Substance Use: Yes Last Used Substance: Days (ago) Substance Use Type Other:: MEDICAL MARIJUANA-PAST 2 WEEKS-PER PCP SUGGESTION-PT DID NOT LIKE EFFECT Preferred Language: Mexican Communication Ability: Effective Third Rigger Required: No Beliefs That Will Affect Care: None marital status: Current Living Situation: Spouse Current Living Situation Comment: [facility] Feels Safe at Home: Yes Safety Concerns: Feels Safe At This Time Assistive Devices: Cane, CPAP, Glasses, Oxygen - at Night and Other Assistive Devices Comment: TENs unit Review of Systems Review of Systems: All systems reviewed & are unremarkable except as noted in HPI & below Physical Exam Physical Exam: Constitutional: WD/WN, vitals as above, appears in pain, sitting up in bed, pleasant, conversing easily Head: Normocephalic, Atraumatic Eyes: PERRL, conjunctivae normal, anicteric sclerae ENMT: external ear and nose normal, oropharynx normal dry membranes Neck: trachea midline, no thyromegaly normal visual inspection Respiratory: normal respiratory effort, lungs clear to auscultation, no wheeze, rales, rhonchi. Normal insp/exp effort, no accessory muscle use Cardiovascular: RRR, no murmur, b/l + 1 pretibial and +2 pedal edema Vessels: no JVD or carotid bruit Chest: normal inspection of chest , no pain to palp Abdomen:obese, distended abd, +pain to palp LUQ with minimal touch, +rebound,BS x 4, soft, nontender, no hepatosplenomegaly Musculoskeletal: no cyanosis or clubbing, extremities motor strength 5/5 Skin: no rashes, warm and dry normal turgor Neurologic: PERRL, EOMI, accommodation nl, no face palsy, no dysarthria CN's II-XI intact bilaterally and moves all extremities Psychiatric: A+Ox3, euthymic affect Lymphatic: no cervical or axillary lymphadenopathy : deferred Results & Data Results & Data ([facility]) Vital Signs (Past 12 Hours) Vital Signs Temp Pulse Pulse Resp BP BP Pulse Ox 06/13/22 12:20 78 06/13/22 12:00 76 19 183/109 H 96 06/13/22 11:30 73 16 150/71 H 94 06/13/22 11:00 82 16 174/76 H 96 06/13/22 10:30 93 H 20 174/83 H 96 06/13/22 10:00 76 12 159/65 H 93 06/13/22 09:30 89 15 181/86 H 97 06/13/22 09:21 89 16 199/90 H 95 06/13/22 08:22 91 H 18 97 06/13/22 08:20 91 H 18 175/139 H 97 06/13/22 08:19 90 06/13/22 07:58 36.5 C 86 20 185/80 H 96 O2 Del Method 06/13/22 12:20 06/13/22 12:00 Room Air 06/13/22 11:30 Room Air 06/13/22 11:00 Room Air 06/13/22 10:30 Room Air 06/13/22 10:00 Room Air 06/13/22 09:30 Room Air 06/13/22 09:21 Room Air 06/13/22 08:22 Room Air 06/13/22 08:20 Room Air 06/13/22 08:19 06/13/22 07:58 Room Air Diagnostic Findings Abdomen/Pelvis CT 06/13/22 08:48 CT abd pelvis IV con only CLINICAL HISTORY: abd l mid abd TECHNIQUE: Helical axial images of the abdomen and pelvis were obtained and displayed. Automated dose lowering techniques and/or adjustment according to patient size were utilized for this exam. This exam was performed with intravenous contrast. CT DOSE: 1479.18 mGy.cm COMPARISON: Comparison is made to CT abdomen pelvis 06/10/2022 FINDINGS: Lower chest: Bibasilar atelectasis versus scarring is seen. Liver: Hepatic steatosis is noted. Gallbladder and biliary tree: Patient is status post cholecystectomy. Hypodensities about the gallbladder fossa are again seen. Physiologic prominence of the biliary ducts is noted. Pancreas: Unremarkable, no focal lesions. Spleen: Unremarkable. Adrenals: Unremarkable. Kidneys and ureters: Perinephric stranding is noted bilaterally. Bladder: Unremarkable. Reproductive organs: Unremarkable. Bowel: Diverticulosis is seen without evidence of diverticulitis. Patient is status post appendectomy. Lymph nodes Retroperitoneal: Unremarkable. Pelvic: Unremarkable. Mesenteric: Unremarkable. Peritoneum: Normal. Vessels: Atherosclerotic calcifications are seen. Abdominal wall: Unremarkable. Bones: Degenerative changes in the visualized spine. Orthopedic hardware spans L4-S1. IMPRESSION: No acute abnormalities and in particular no evidence of bowel obstruction. Diverticulosis is seen without diverticulitis. ACT 112: Negative or not required by law. Electronically signed by: Krish Clark M.D. 06/13/2022 9:29 AM Medications Administered Medication List Discontinued Medications Aspirin (Aspirin Chew 324 Mg) 324 mg PO NOW STA Stop: 06/13/22 10:33 Last Admin: 06/13/22 10:53 Dose: 324 mg Documented By: NOEMÍ Sodium Chloride (Nss 1000ml) 1,000 mls @ 999 mls/hr IV .Q1H1M ONE Stop: 06/13/22 10:07 Last Admin: 06/13/22 09:27 Dose: Not Given Documented By: NOEMÍ Ioversol (Optiray 350 100ml) 94 ml IV ONCE ONE Stop: 06/13/22 09:08 Last Admin: 06/13/22 09:07 Dose: 94 ml Documented By: ALICE Morphine Sulfate (Morphine Sulfate 10 Mg/Ml Carp/Vial) 6 mg IV NOW STA Stop: 06/13/22 09:08 Last Admin: 06/13/22 09:20 Dose: 6 mg Documented By: NOEMÍ Ondansetron HCl (Ondansetron Inj 2 Mg/Ml 2 Ml Vial) 4 mg IV NOW STA Stop: 06/13/22 09:08 Last Admin: 06/13/22 09:20 Dose: 4 mg Documented By: NOEMÍ Ondansetron HCl (Ondansetron Inj 2 Mg/Ml 2 Ml Vial) 4 mg IV NOW STA Stop: 06/13/22 11:59 Last Admin: 06/13/22 12:21 Dose: 4 mg Documented By: NOEMÍ ECG Rate (beats per minute): 88 Rhythm: normal sinus Findings: + LAFB and + RBBB Additional Comments: qtc 467 ms, ecg was viewed by nh COVID-19 Results Results COVID-19 Adm Lab Results: RBC 5.60 M/uL (4.70-6.10) 06/14/22 WBC 11.69 K/ul (4.8-10.8) H 06/14/22 Hgb 14.2 g/dl (14.0-18.0) 06/14/22 Hct 44.9 % (42.0-52.0) 06/14/22 Plt Count 369 K/uL (130-400) 06/14/22 Neutrophils (%) (Auto) 75.8 % 06/14/22 Lymphocytes (%) (Auto) 12.0 % 06/14/22 Monocytes # (Auto) 1.29 K/uL (0.11-0.59) H 06/14/22 Eosinophils # (Auto) 0.05 K/uL (0-0.50) 06/14/22 Immature Granulocyte % (Auto) 0.4 % 06/14/22 Neutrophils # (Auto) 8.85 K/uL (1.40-6.50) H 06/14/22 Lymphocytes # (Auto) 1.40 K/uL (1.2-3.4) 06/14/22 Monocytes # (Auto) 1.29 K/uL (0.11-0.59) H 06/14/22 Eosinophils # (Auto) 0.05 K/uL (0-0.50) 06/14/22 Basophils # (Auto) 0.05 K/uL (0-0.2) 06/14/22 Immature Granulocyte # (Auto) 0.05 K/uL (0.01-0.20) 3 Na 137 mmol/L (136-145) 06/14/22 K 4.2 mmol/L (3.5-5.1) 06/14/22 Cl 101 mmol/L (98-107) 06/14/22 CO2 28 mmol/L (21-32) 06/14/22 Anion Gap 8 (3-11) 06/14/22 BUN 20 mg/dl (6-23) 06/14/22 Creatinine 1.39 mg/dl (0.6-1.4) 06/14/22 BUN/Creatinine Ratio 14.4 (10-20) 06/14/22 Glucose Level 175 mg/dl (70-99(Fasting)) H 06/14/22 Ca 9.4 mg/dl (8.5-10.1) 06/14/22 Total Bilirubin 0.5 mg/dl (0.2-1.0) 06/14/22 AST/SGOT 20 U/L (13-39) 06/14/22 ALT/SGPT 25 U/L (7-52) 06/14/22 Alkaline Phosphatase 69 U/L (34-104) 06/14/22 Total Protein 6.5 gm/dl (6.0-8.3) 06/14/22 Albumin 3.9 gm/dl (3.4-5.0) 06/14/22 Globulin 2.6 gm/dl (2.5-4.0) 06/14/22 Albumin/Globulin Ratio 1.5 (0.9-2) 06/14/22 SARS-CoV-2, RNA, NAAT NEGATIVE (NEGATIVE) 06/13/22 Code Status & VTE Plan Code Status FULL CODE VTE Prophylaxis Plan VTE Prophylaxis will be ordered: Yes Supervising Physician Co-Signing Physician Notes Patient seen and examined independently. Chart reviewed. Case discussed with LITTLE. Agree with assessment and plan as above (1) Abdominal pain Abdominal location: left upper quadrant Qualified Code(s): R10.12 - Left upper quadrant pain (2) CAD (coronary artery disease) Associated angina: without angina Coronary Disease-Associated Artery/Lesion type: unspecified vessel or lesion type [place] vs. transplanted heart: [place] heart Qualified Code(s): I25.10 - Atherosclerotic heart disease of [place] coronary artery without angina pectoris
--- NOTE | 2022-06-13 14:05 | Ultrasound Report ---
BILATERAL LOWER EXTREMITY VENOUS DOPPLER HISTORY: Bilateral leg swelling COMPARISON STUDY: None. FINDINGS: There is normal compressibility, flow, and augmentation within the bilateral lower extremit y deep venous systems. IMPRESSION: No DVT within the right or left lower extremity. ACT 112: Negative or not required by law. Electronically signed by: Aubrey Cee M.D. 06/13/2022 2:03 PM
[2022-06-13] MEDS ORDERED: ACETAMINOPHEN 325 MG TAB PO PRN (14:41)
[2022-06-13] MEDS ORDERED: GLUCAGON FOR INJ 1 MG VIAL SQ PRN (14:41)
[2022-06-13] MEDS ORDERED: ALUMINUM/MAGNESIUM SUSP 30 ML UDC PO PRN (14:41)
[2022-06-13] MEDS ORDERED: SIMETHICONE 80 MG CHEW PO PRN (14:41)
[2022-06-13] MEDS ORDERED: hydrOXYzine HCl 25 MG TAB PO PRN (14:41)
[2022-06-13] MEDS ORDERED: MAGNESIUM HYDROXIDE SUSP 30 ML UDC PO PRN (14:41)
[2022-06-13] MEDS ORDERED: ALBUTEROL HFA 8 GM INHALER INH PRN (14:41)
[2022-06-13] MEDS ORDERED: POLYETHYLENE (MIRALAX) 17 GM PACK PO PRN (14:41)
[2022-06-13] MEDS ORDERED: PHARMACY GLYCEMIC MGMT CONSULT PRN (14:41)
[2022-06-13] MEDS ORDERED: GLUCOSE 10 TAB/TUBE PO PRN (14:41)
[2022-06-13] MEDS ORDERED: DEXTROSE 50% 50 ML SYRINGE IV PRN (14:41)
[2022-06-13] MEDS ORDERED: CARBOHYDRATES FOR HYPOGLYCEMIA PO PRN (14:41)
[2022-06-13] MEDS ORDERED: MoRPHine SULFATE IR 15 MG TAB (IMMEDIATE RELEASE) PO PRN (14:41)
[2022-06-13] MEDS ORDERED: GLUCOSE 40% GEL 15 GM TUBE PO PRN (14:41)
[2022-06-13] MEDS ORDERED: MoRPHine SULFATE CR 15 MG TABCR PO ONE (16:04)
[2022-06-13] MEDS: SUCRALFATE 1 GM TAB PO SCH ×2 (16:16→20:40)
[2022-06-13] MEDS: CLOPIDOGREL BISULFATE 75 MG TAB PO SCH ×2 (16:16→16:22)
[2022-06-13] MEDS: NICOTINE 21 MG/24 HR TDSY TD SCH (16:16)
[2022-06-13] MEDS: DOCUSATE SODIUM/SENNA 50/8.6MG TAB PO SCH ×2 (16:17→20:40)
[2022-06-13] MEDS: POLYETHYLENE (MIRALAX) 17 GM PACK PO SCH (16:17)
[2022-06-13] MEDS ORDERED: LANTUS PER UNIT CHARGE SQ SCH ×2 (16:30)
[2022-06-13] MEDS: INSULIN ASPART PER UNIT SC SCH ×2 (17:11→21:21)
--- NOTE | 2022-06-13 17:13 | Consultation ---
Date of Consultation June 13, 2022 History of Present Illness Attending Physician: Luis Sarabia MD History of Present Illness 61 yo M with mult comorbidites sig recent ME, AR on CPAP with seocndary polycythemia requiring phlebotomy, chronic pain on narcotics now presents with LUQ abd pain x 4 weeks. He describes pain x 4 weeks. Pain is severe, non radiating, sharp. Pain may worsen 1-2 hours after PO for 1-2 hours, but persists even when pt is fasting. + nuasea, no vomiting. + chronic constipation without recent change in BH. Denies NSAID use. Has had mult ER visits with CT scans x 3 - first CT showed mod constipation, subsequent CT's unremarkable. His morphine IR dose was increased fomr 30 BID to 30 TID 2 days ago by pain management. PE: Appears comfortable, currently reporting severe pain. He is able to sit up when asked without difficulty. HEENT: OC clear, moist and pink. Abd: very large pannus. + diastasis. He is tender when his skin is touched in focal area in LUQ. Remainder of abdomen is non tender. Back: Tender at thoracic vertebra with palpation. No CVA tenderness. Labs sig WBC 12, Hgb 14, Na 134, gluc 227, LFTs WNL, lipase WNL, UA with blood, nl toponin A/P: Intractable abd pain in pt on high doses of narcotics for back pain Unremarkable imaging, labs - Suspect abdominal wall pain, with differential including functional pain, dysmotility/narcotic bowel, acid-peptic disease with risk fx polycythemia. WIll plan EGD and pain management consult for trigger point injection. Allergies Allergy/AdvReac Type Severity Reaction Status Date / Time clarithromycin Allergy Severe DAMAGED Verified 06/07/22 14:57 LIVER PER PT-REQUIRED HOSPITALIZATION adhesive AdvReac Mild SKIN Verified 06/07/22 14:57 RASH-WITH SOME TAPES Uncoded Nonscreenable Allergy Intermediate PLASTICS: Uncoded 06/07/22 14:57 Allergen BLISTERS GLP-1RA AdvReac Unknown Hx of Uncoded 06/07/22 14:57 Pancreatitis Home Medications Medication Instructions Recorded Confirmed Type albuterol sulfate 90 mcg/actuation 2 puff inhalation Q6H PRN Wheezing 06/26/18 06/13/22 History aerosol inhaler montelukast 10 mg tablet 10 mg PO HS 06/26/18 06/13/22 History nitroglycerin 0.4 mg sublingual 1 tab sublingual UD PRN CHESTPAIN 06/26/18 06/13/22 History tablet (Nitrostat) pantoprazole 40 mg tablet,delayed 40 mg PO BID 01/28/19 06/13/22 History release Oxygen Home #1 ea 04/30/19 06/13/22 History aspirin 81 mg tablet,delayed 81 mg PO HS 03/12/20 06/13/22 History release blood-glucose meter (OneTouch 08/14/20 06/13/22 History Verio Flex Meter) blood-glucose meter,continuous 02/03/21 06/13/22 History (Dexcom G6 Escrow Officer) blood-glucose sensor (Dexcom G6 02/03/21 06/13/22 History Sensor device) blood-glucose transmitter (Dexcom 02/03/21 06/13/22 History G6 Transmitter device) cetirizine 10 mg capsule (Zyrtec) 10 mg PO DAILY PRN Allergy Symptoms 03/05/21 06/13/22 History cholecalciferol (vitamin D3) 25 3,000 unit PO HS 03/05/21 06/13/22 History mcg (1,000 unit) capsule (Vitamin D3) hydroxyzine pamoate 25 mg capsule 25 mg PO Q8H PRN anxiety 5 days 06/16/21 06/13/22 Rx (Vistaril) #15 caps blood sugar diagnostic #1,100 ea 07/13/21 06/13/22 Rx metoprolol succinate 25 mg 25 mg PO AMHS Other 08/04/21 06/13/22 History tablet,extended release 24 hr insulin aspart U-100 100 unit/mL 100 unit subcut .COMPLEX #90 mL 08/31/21 06/13/22 Rx (3 mL) subcutaneous pen (Novolog FlexPen U-100 Insulin aspart) morphine 100 mg tablet,extended 100 mg PO TID 10/12/21 06/13/22 History release morphine 30 mg immediate release 30 mg PO TID PRN Severe Pain 02/17/22 06/13/22 History tablet (Scale Score 7-10) clopidogrel 75 mg tablet 75 mg PO QAM 05/16/22 06/13/22 History lubiprostone 24 mcg capsule 24 mcg PO BID 05/16/22 06/13/22 History (Amitiza) coenzyme Q10 100 mg capsule (Co 100 mg PO DAILY 06/10/22 06/13/22 History Q-10) hydromorphone 4 mg tablet 4 - 8 mg PO .Q4-6H PRN Pain 06/10/22 06/13/22 History rosuvastatin 5 mg tablet 2.5 mg PO QAM 06/10/22 06/13/22 History sucralfate 1 gram tablet 1 g PO ACHS 06/10/22 06/13/22 History testosterone 1 pump topical DAILY 06/10/22 06/13/22 History budesonide 0.5 mg/2 mL suspension 0.5 mg inhalation BID PRN copd exac 06/13/22 06/13/22 History for nebulization furosemide 20 mg tablet 40 mg PO BID 06/13/22 06/13/22 History insulin glargine U-300 conc 300 140 unit subcut DAILY 06/13/22 06/13/22 History unit/mL (1.5 mL) subcutaneous pen ([email or web address] SoloStar U-300 Insulin) Patient History Medical History Bundle branch block, bilateral Chronic back pain Chronic kidney disease (CKD) Degenerative disc disease Diabetes mellitus, type 2 Diverticular disease GERD (gastroesophageal reflux disease) History of acute pancreatitis RELATED TO A STONE OBSTRUCTION, 10/2017 History of basal cell carcinoma History of SCC (squamous cell carcinoma) of skin History of skin cancer S/P EXCISION OF SCALP Irritable bowel syndrome (IBS) Migraines Obesity Polycythemia, secondary Post traumatic stress disorder Sleep apnea CPAP WITH 4-5 L/MIN HS. S/P UPPP. SOBOE (shortness of breath on exertion) Tachycardia Tinea pedis Surgical History Fusion of spine MULTIPLE LUMBARX2 History of appendectomy History of back surgery History of cardiac cath 2017-NO STENTS History of colonoscopy History of ERCP 11/2017 [facility] History of esophagogastroduodenoscopy (EGD) History of repair of rotator cuff LEFT SHOULDER History of surgery RT ELBOW History of tonsillectomy History of uvulopalatopharyngoplasty FOR TREATMENT OF AR S/P cholecystectomy Family History Other COPD (chronic obstructive pulmonary disease) Cancer Diabetes Heart disease Hypertension Social History Smoking Status: Current every day smoker Tobacco Type: Cigarettes packs per day: 1; Cigarettes Per Day: 20; Second Hand Exposure: No; Hx Alcohol Use: No Hx Substance Use: Yes Last Used Substance: Days (ago) Substance Use Type Other:: MEDICAL MARIJUANA-PAST 2 WEEKS-PER PCP SUGGESTION-PT DID NOT LIKE EFFECT Preferred Language: Turkmen Communication Ability: Effective Data Quality Consultant Required: No Beliefs That Will Affect Care: None marital status: Current Living Situation: Spouse Current Living Situation Comment: [facility] Feels Safe at Home: Yes Safety Concerns: Feels Safe At This Time Assistive Devices: Cane, CPAP, Glasses, Oxygen - at Night and Other Assistive Devices Comment: TENs unit Results & Data ([facility]) Vital Signs (Past 12 Hours) Vital Signs Temp Pulse Pulse Resp BP BP Pulse Ox 06/13/22 15:47 36.9 C 80 18 173/78 H 97 06/13/22 14:41 36.9 C 70 18 204/93 H 97 06/13/22 13:00 79 20 175/77 H 97 06/13/22 12:30 70 18 166/76 H 94 06/13/22 12:20 78 06/13/22 12:00 76 19 183/109 H 96 06/13/22 11:30 73 16 150/71 H 94 06/13/22 11:00 82 16 174/76 H 96 06/13/22 10:30 93 H 20 174/83 H 96 06/13/22 10:00 76 12 159/65 H 93 06/13/22 09:30 89 15 181/86 H 97 06/13/22 09:21 89 16 199/90 H 95 06/13/22 08:22 91 H 18 97 06/13/22 08:20 91 H 18 175/139 H 97 06/13/22 08:19 90 06/13/22 07:58 36.5 C 86 20 185/80 H 96 O2 Del Method 06/13/22 15:47 Room Air 06/13/22 14:41 Room Air 06/13/22 13:00 Room Air 06/13/22 12:30 Room Air 06/13/22 12:20 06/13/22 12:00 Room Air 06/13/22 11:30 Room Air 06/13/22 11:00 Room Air 06/13/22 10:30 Room Air 06/13/22 10:00 Room Air 06/13/22 09:30 Room Air 06/13/22 09:21 Room Air 06/13/22 08:22 Room Air 06/13/22 08:20 Room Air 06/13/22 08:19 06/13/22 07:58 Room Air
[2022-06-13] MEDS: HYDROmorphone HCL 2 MG TAB PO PRN (19:54)
[2022-06-13] MEDS: ONDANSETRON INJ 2 MG/ML 2 ML VIAL IV PRN (19:55)
[2022-06-13] MEDS ORDERED: MoRPHine SULFATE CR 15 MG TABCR PO PRN ×2 (20:06→20:07)
[2022-06-13] MEDS: PANTOprazole 40 MG TAB PO SCH (20:39)
[2022-06-13] MEDS: FUROSEMIDE 40 MG TAB PO SCH (20:40)
[2022-06-13] MEDS: LUBIPROSTONE 8 MCG CAP PO SCH (20:41)
[2022-06-13] MEDS: METOPROLOL SUCC 25MG EXT REL TAB PO SCH (20:41)
[2022-06-13] MEDS ORDERED: CHOLECALCIFEROL 1,000 UNITS 25 MCG TAB PO SCH (21:00)
[2022-06-13] MEDS ORDERED: METOCLOPRAMIDE HCL INJ 5 MG/ML 2 ML VIAL IV ONE (23:37)
[2022-06-13] MEDS ORDERED: MoRPHine SULFATE IR 15 MG TAB (IMMEDIATE RELEASE) PO STA (23:37)
[2022-06-14] MEDS ORDERED: METOCLOPRAMIDE HCL INJ 5 MG/ML 2 ML VIAL ONE (00:23)
[2022-06-14] MEDS ORDERED: MoRPHine SULFATE IR 15 MG TAB (IMMEDIATE RELEASE) PO ONE (00:30)
[2022-06-14] MEDS ORDERED: MoRPHine SULFATE CR 15 MG TABCR PO STA (01:00)
[2022-06-14] MEDS: INSULIN ASPART PER UNIT SC SCH ×4 (01:25→13:18)
[2022-06-14] MEDS: HYDROmorphone HCL 2 MG TAB PO PRN ×2 (03:14→12:51)
[2022-06-14] MEDS: ONDANSETRON INJ 2 MG/ML 2 ML VIAL IV PRN ×2 (05:42→11:35)
[2022-06-14 07:31] LABS: Basophils # (auto) 0.05 K/uL (0-0.2); Basophils % (auto) 0.4 %; Eosinophils # (auto) 0.05 K/uL (0-0.50); Eosinophils % (auto) 0.4 %; Hematocrit (blood only) 44.9 % (42.0-52.0); Hemoglobin 14.2 g/dl (14.0-18.0); Immature Granulocytes # (auto) 0.05 K/uL (0.01-0.20); Immature Granulocytes % (auto) 0.4 %; Mean Corpuscular Hemoglobin 25.4 pg (25.0-34.0); Mean Corpuscular Hgb Conc 31.6 g/dL (32.0-36.0); Mean Corpuscular Volume 80.2 fL (80.0-100.0); Mean Platelet Volume 8.9 fL (9.4-12.4); Monocytes # (auto) 1.29 K/uL (0.11-0.59); Neutrophils # (auto) 8.85 K/uL (1.40-6.50); Neutrophils % (auto) 75.8 %; Platelet Count 369 K/uL (130-400); RDW Coefficient of Variation 15.7 % (11.5-14.5); RDW Standard Deviation 45.2 fL (36.4-46.3); White Blood Count 11.69 K/ul (4.8-10.8)
[2022-06-14 07:44] LABS: Albumin Globulin Ratio 1.5 (0.9-2); Albumin Level 3.9 gm/dl (3.4-5.0); BUN Creatinine Ratio 14.4 (10-20); Bilirubin,Total 0.5 mg/dl (0.2-1.0); Calcium 9.4 mg/dl (8.5-10.1); Creatinine Clr Calc Pharmacy 69.1 ml/min; Est GFR (African American) 63.8 ml/min; Est GFR (Non-African American) 55.1 ml/min; Globulin 2.6 gm/dl (2.5-4.0); Potassium 4.2 mmol/L (3.5-5.1); Total Protein 6.5 gm/dl (6.0-8.3)
[2022-06-14] MEDS: MoRPHine SULFATE CR 15 MG TABCR PO SCH ×2 (08:10→14:01)
[2022-06-14] MEDS: LUBIPROSTONE 8 MCG CAP PO SCH (08:10)
[2022-06-14] MEDS: PANTOprazole 40 MG TAB PO SCH (08:11)
[2022-06-14] MEDS: DOCUSATE SODIUM/SENNA 50/8.6MG TAB PO SCH (08:11)
[2022-06-14] MEDS: FUROSEMIDE 40 MG TAB PO SCH (08:11)
[2022-06-14] MEDS: SUCRALFATE 1 GM TAB PO SCH (08:11)
[2022-06-14] MEDS: METOPROLOL SUCC 25MG EXT REL TAB PO SCH (08:11)
[2022-06-14] MEDS: NICOTINE 21 MG/24 HR TDSY TD SCH (08:13)
--- NOTE | 2022-06-14 08:43 | Pain Management Consultation ---
Date of Consultation June 14, 2022 Assessment & Plan (1) Abdominal pain: (2) Opioid dependence: (3) CAD (coronary artery disease): Associated angina: without angina Coronary Disease-Associated Artery/Lesion type: unspecified vessel or lesion type [place] vs. transplanted heart: [place] heart Qualified Code(s): I25.10 - Atherosclerotic heart disease of [place] coronary artery without angina pectoris (4) Postlaminectomy syndrome of lumbosacral region: (5) Therapeutic opioid-induced constipation (OIC): (6) Morbid obesity: Plan 1. Patient with primary complaint of left upper quadrant abdominal pain of unknown etiology. Advanced imaging with abdominal CT completed 3 times in the past 6 weeks without obvious etiology of presenting complaints. Patient with chronic opioid dependency and likely opioid induced constipation as well as physical exam findings potentially suggesting myofascial etiology. We discussed pursuing a trial of abdominal wall trigger point injections at today's visit and he was agreeable. Refer to procedure note below. 2. Consider a trial of Relistor versus Movantik for treatment of his suspected opioid-induced constipation 3. Patient has chronic opiate dependency with significant MME of greater than 300 mg/day. Patient continue to follow with [facility] pain management with Dr. Joseph Viera regarding management of his chronic opioid dependency 4. Patient would potentially benefit from behavioral health evaluation for management of his coexisting anxiety/depressive disorder and chronic pain syndrome 5. Patient will follow through with EGD under the direction of Dr. Henao later today Thank you for allowing us to participate in the care of Mr. Rios. TRIGGER POINT INJECTION Diagnosis: Myofascial pain with spasm Side/Level injected: Left upper quadrant abdomen x5 Surgeon: Rafael OVERTON Prior to starting, the Patients diagnosis and the procedure were reviewed with the patient in detail. Possible risks and complications including infection, bleeding, damage to surrounding structures and increased pain were discussed. Alternative therapies were also reviewed. Patients questions were answered and they agreed to proceed. Informed consent was obtained. Allergies and medication list was reviewed. The patient was brought to the procedure room and placed in prone position. Immediately prior to starting the procedure, a ``time out was conducted with the staff and the patient where the patient was identified, proposed procedure was verified, consent was reviewed and the proper site for the planned procedure was identified. Patient was not given any intravenous sedation and constant verbal contact was maintained throughout the procedure. On examination, no signs of skin breakdown or infection were noted at the injection site. The site was cleansed with ChloraPrep. Palpation over the site produced patients typical pain. Using an 1.5 inch 25-gauge needle, the above muscles were injected in similar fashion after negative aspiration for blood with 1.5-2 mL of a combination of 7 mL of 0.5% ropivacaine containing 40 mg of Kenalog and 30 mg of ketorolac without complication. Needle was withdrawn and hemostasis noted. Band-Aid was applied where needed. Patient tolerated the procedure uneventfully without complications. Patient was discharged home with standard discharge instructions after 15-20 minutes. History of Present Illness Reason for Consultation: Left upper quadrant abdominal pain Requesting Physician: Suni Henao MD Attending Physician: Agnieszka Araiza DO History of Present Illness Mr. Rios is a 61-year-old morbidly obese white male with multiple comorbidities who conditions including but not limited to CAD, COPD, chronic diastolic CHF, chronic opioid dependency (MME greater than 300 mg/day), history of multiple lumbar surgeries, hypertension, opioid-induced constipation, diabetes mellitus and obesity. The patient reports a 2-month history of persistent left upper q uadrant abdominal pain. He relates the abdominal pain to status post his cardiac stenting procedure in February. He reports the pain is fairly constant, but fluctuating in severity. He describes the pain as sharp and nonradiating occasionally moderately alleviated by bowel movement. He describes the pain as severe at an 8/10 at its worst and a 4/10 at its best. Patient has been on chronic opiates for greater than 20 years per his report under the care of Dr. Joseph Viera at [facility] currently on MS Contin 90 mg 3 times daily and recently given hydromorphone 4 mg every 4 hours as needed breakthrough pain. He further reports that he was supposed to be initiated on MS Contin 30 mg for breakthrough pain daily-twice daily instead of MS IR but that was mistakenly sent as MS IR by Dr. Viera's office. He is in process of working this out with his office. Patient reports a history of 6 lumbar spine surgeries 1 of those occurring anteriorly and posteriorly which is led to some chronic left lower quadrant pain extending into the left hemiscrotal and proximal thigh with some chronic paresthesia. He reports bowel movements do occur daily-every other day but are minimal. He is planned for EGD with Dr. Henao later today. He denies nausea or vomiting. Patient has no further constitutional complaints at this time. Plan of care discussed with Dr. Danay Nuñez. Pain Assessment Full Body Front + Back: 1. Left upper quadrant Pain scale - at its best (0-10): 4 Pain scale - at its worst (0-10): 8 Allergies Allergy/AdvReac Type Severity Reaction Status Date / Time clarithromycin Allergy Severe DAMAGED Verified 06/07/22 14:57 LIVER PER PT-REQUIRED HOSPITALIZATION adhesive AdvReac Mild SKIN Verified 06/07/22 14:57 RASH-WITH SOME TAPES Uncoded Nonscreenable Allergy Intermediate PLASTICS: Uncoded 06/07/22 14:57 Allergen BLISTERS GLP-1RA AdvReac Unknown Hx of Uncoded 06/07/22 14:57 Pancreatitis Home Medications Medication Instructions Recorded Confirmed Type albuterol sulfate 90 mcg/actuation 2 puff inhalation Q6H PRN Wheezing 06/26/18 06/13/22 History aerosol inhaler montelukast 10 mg tablet 10 mg PO HS 06/26/18 06/13/22 History nitroglycerin 0.4 mg sublingual 1 tab sublingual UD PRN CHESTPAIN 06/26/18 06/13/22 History tablet (Nitrostat) pantoprazole 40 mg tablet,delayed 40 mg PO BID 01/28/19 06/13/22 History release Oxygen Home #1 ea 04/30/19 06/13/22 History aspirin 81 mg tablet,delayed 81 mg PO HS 03/12/20 06/13/22 History release blood-glucose meter (OneTouch 08/14/20 06/13/22 History Verio Flex Meter) blood-glucose meter,continuous 02/03/21 06/13/22 History (Dexcom G6 Manager Cardiac Cath) blood-glucose sensor (Dexcom G6 02/03/21 06/13/22 History Sensor device) blood-glucose transmitter (Dexcom 02/03/21 06/13/22 History G6 Transmitter device) cetirizine 10 mg capsule (Zyrtec) 10 mg PO DAILY PRN Allergy Symptoms 03/05/21 06/13/22 History cholecalciferol (vitamin D3) 25 3,000 unit PO HS 03/05/21 06/13/22 History mcg (1,000 unit) capsule (Vitamin D3) hydroxyzine pamoate 25 mg capsule 25 mg PO Q8H PRN anxiety 5 days 06/16/21 06/13/22 Rx (Vistaril) #15 caps blood sugar diagnostic #1,100 ea 07/13/21 06/13/22 Rx metoprolol succinate 25 mg 25 mg PO AMHS Other 08/04/21 06/13/22 History tablet,extended release 24 hr insulin aspart U-100 100 unit/mL 100 unit subcut .COMPLEX #90 mL 08/31/21 06/13/22 Rx (3 mL) subcutaneous pen (Novolog FlexPen U-100 Insulin aspart) morphine 100 mg tablet,extended 100 mg PO TID 10/12/21 06/13/22 History release morphine 30 mg immediate release 30 mg PO TID PRN Severe Pain 02/17/22 06/13/22 History tablet (Scale Score 7-10) clopidogrel 75 mg tablet 75 mg PO QAM 05/16/22 06/13/22 History lubiprostone 24 mcg capsule 24 mcg PO BID 05/16/22 06/13/22 History (Amitiza) coenzyme Q10 100 mg capsule (Co 100 mg PO DAILY 06/10/22 06/13/22 History Q-10) hydromorphone 4 mg tablet 4 - 8 mg PO .Q4-6H PRN Pain 06/10/22 06/13/22 History rosuvastatin 5 mg tablet 2.5 mg PO QAM 06/10/22 06/13/22 History sucralfate 1 gram tablet 1 g PO ACHS 06/10/22 06/13/22 History testosterone 1 pump topical DAILY 06/10/22 06/13/22 History budesonide 0.5 mg/2 mL suspension 0.5 mg inhalation BID PRN copd exac 06/13/22 06/13/22 History for nebulization furosemide 20 mg tablet 40 mg PO BID 06/13/22 06/13/22 History insulin glargine U-300 conc 300 140 unit subcut DAILY 06/13/22 06/13/22 History unit/mL (1.5 mL) subcutaneous pen ([employer] SoloStar U-300 Insulin) Pain History Pain Intensity Pain scale - at its best (0-10): 4 Pain scale - at its worst (0-10): 8 Patient History Medical History (Updated 06/14/22 @ 08:40 by Rafael Coughlin PA-C) Bundle branch block, bilateral Chronic back pain Chronic kidney disease (CKD) Degenerative disc disease Diabetes mellitus, type 2 Diverticular disease GERD (gastroesophageal reflux disease) History of acute pancreatitis RELATED TO A STONE OBSTRUCTION, 10/2017 History of basal cell carcinoma History of SCC (squamous cell carcinoma) of skin History of skin cancer S/P EXCISION OF SCALP Irritable bowel syndrome (IBS) Migraines Morbid obesity Obesity Polycythemia, secondary Post traumatic stress disorder Postlaminectomy syndrome of lumbosacral region Sleep apnea CPAP WITH 4-5 L/MIN HS. S/P UPPP. SOBOE (shortness of breath on exertion) Tachycardia Therapeutic opioid-induced constipation (OIC) Tinea pedis Surgical History Fusion of spine MULTIPLE LUMBARX2 History of appendectomy History of back surgery History of cardiac cath 2016-NO STENTS History of colonoscopy History of ERCP 11/2017 [facility] History of esophagogastroduodenoscopy (EGD) History of repair of rotator cuff LEFT SHOULDER History of surgery RT ELBOW History of tonsillectomy History of uvulopalatopharyngoplasty FOR TREATMENT OF AR S/P cholecystectomy Family History Other COPD (chronic obstructive pulmonary disease) Cancer Diabetes Heart disease Hypertension Social History Smoking Status: Current every day smoker Tobacco Type: Cigarettes packs per day: 1; Cigarettes Per Day: 20; Second Hand Exposure: No; Hx Alcohol Use: No Hx Substance Use: Yes Last Used Substance: Days (ago) Substance Use Type Other:: MEDICAL MARIJUANA-PAST 2 WEEKS-PER PCP SUGGESTION-PT DID NOT LIKE EFFECT Preferred Language: Ukrainian Communication Ability: Effective Facility Attendant Required: No Beliefs That Will Affect Care: None marital status: Current Living Situation: Spouse Current Living Situation Comment: [place] Feels Safe at Home: Yes Safety Concerns: Feels Safe At This Time Assistive Devices: Cane, CPAP, Glasses, Oxygen - at Night and Other Assistive Devices Comment: TENs unit Physical Exam Physical Exam: General: Patient lying quietly in exam room in no acute distress. Speech and thought process appropriate. Mood and affect appropriate. Patient appears moderately anxious. Cognition intact. Patient morbidly obese and physically deconditioned. Head: Normocephalic and atraumatic. ENT: No evidence of nasal or oral mucosal lesions. Mucous membranes are moist. Eyes: Pupils equal round reactive to light. Neck: Supple without adenopathy and full range of motion. Chest: Nontender to palpation of the costosternal junction. Nontender along the costal margin. No focal rib or intercostal space tenderness to palpation. Nontender with AP and lateral compression of the chest wall. Abdomen: Soft and nondistended. Protuberant. No organomegaly. Bowel sounds active. Well-healed surgical incision in the left lower quadrant. Patient is tender to palpation in the left upper quadrant as well as throughout the entire abdominal region. He does have localized tenderness in the left upper quadrant with potential underlying myofascial spasm. Slight increase in pain with any resisted sit up maneuvering. Slightly diminished sensation in the left lower quadrant to sharp and dull. Back/spine: Complete loss of lordosis. Well-healed surgical incision over the entire lumbar spine. Some generalized tenderness to palpation throughout the lumbosacral region with slight hyperalgesia. Lower extremities: Trace-1+ pitting edema of the ankle and pretibial region. Strength testing 5/5 and equal. Sensation diminished of the toes in nondermatomal patterns bilaterally. Neurologic: Cranial nerves grossly intact. Ambulatory function not witnessed. Results (Pain Clinic) Diagnostic Review CT Findings: [place], [place] [phone] CT Scan Report Patient:DAKOTA RIOS Admit Date:06/13/22 MR#:[id number] Address1:[address] [place] [address] Acct ID:[id number] Address2: Date:1960 [facility] Zip:[place] [address] Age:61 Location:ED Sex:M Room/Bed: Att Phy: Diagnosis:POSSIBLE STOMACH ULCER [place] Phy:Oswaldo Sampson MD Service Date:06/13/22 Fam Phy: Interpreting Phy:Krish Clark [facility] Phy: Ordering Phy:Sukumar Blandon DO cc: ~ CT abd pelvis IV con only CLINICAL HISTORY: abd l mid abd TECHNIQUE: Helical axial images of the abdomen and pelvis were obtained and displayed. Automated dose lowering techniques and/or adjustment according to patient size were utilized for this exam. This exam was performed with intravenous contrast. CT DOSE: 1479.18 mGy.cm COMPARISON: Comparison is made to CT abdomen pelvis 06/10/2022 FINDINGS: Lower chest: Bibasilar atelectasis versus scarring is seen. Liver: Hepatic steatosis is noted. Gallbladder and biliary tree: Patient is status post cholecystectomy. Hypodensities about the gallbladder fossa are again seen. Physiologic prominence of the biliary ducts is noted. Pancreas: Unremarkable, no focal lesions. Spleen: Unremarkable. Adrenals: Unremarkable. Kidneys and ureters: Perinephric stranding is noted bilaterally. Bladder: Unremarkable. Reproductive organs: Unremarkable. Bowel: Diverticulosis is seen without evidence of diverticulitis. Patient is status post appendectomy. Lymph nodes Retroperitoneal: Unremarkable. Pelvic: Unremarkable. Mesenteric: Unremarkable. Peritoneum: Normal. Vessels: Atherosclerotic calcifications are seen. Abdominal wall: Unremarkable. Bones: Degenerative changes in the visualized spine. Orthopedic hardware spans L4-S1. IMPRESSION: No acute abnormalities and in particular no evidence of bowel obstruction. Diverticulosis is seen without diverticulitis. ACT 112: Negative or not required by law. Electronically signed by: Krish Clark M.D. 06/13/2022 9:29 AM Dictated:06/13/22919 Transcribed: 06/13/22919 Previous Records Review Previous Records: personally reviewed by
[2022-06-14] MEDS ORDERED: LANTUS PER UNIT CHARGE SQ SCH ×2 (09:00)
[2022-06-14] MEDS ORDERED: ENOXAPARIN INJ 40 MG/0.4 ML SYR SQ SCH (09:00)
[2022-06-14] MEDS ORDERED: ROSUVASTATIN CALCIUM 5 MG TAB PO SCH (09:00)
[2022-06-14] MEDS ORDERED: POTASSIUM CHLORIDE CRTAB 20 MEQ TABCR PO SCH (09:00)
[2022-06-14] MEDS ORDERED: NON-FORMULARY MEDICATION (Testosterone 20.25 mg/1.25 gram (1.62 %) gel in metered-dose pum TOP SCH (09:00)
[2022-06-14] MEDS: CLOPIDOGREL BISULFATE 75 MG TAB PO SCH (09:10)
[2022-06-14] MEDS: POLYETHYLENE (MIRALAX) 17 GM PACK PO SCH (09:11)
--- NOTE | 2022-06-14 10:12 | Anesthesiology Consultation ---
Date of Service June 14, 2022 Assessment & Plan Chart Review Chart Review: Acceptable Risk for Surgery Consults Requested none ASA ASA3 Proposed Anesthesia Anesthesia Type: MAC Risk / Benefits Reviewed With: PT / POA / Parent / Guardian, Accepts Plan and Informed Consent Obtained History Surgery Operation Date: 06/14/22 17:05 Proposed Procedures p Esophagogastroduodenoscopy Dr Arrington - Suni Henao MD Height/Weight Height: 5 ft 7 in Weight: 114.2 kg Allergies Allergy/AdvReac Type Severity Reaction Status Date / Time clarithromycin Allergy Severe DAMAGED Verified 06/14/22 10:01 LIVER PER PT-REQUIRED HOSPITALIZATION adhesive AdvReac Mild SKIN Verified 06/14/22 10:01 RASH-WITH SOME TAPES Uncoded Nonscreenable Allergy Intermediate PLASTICS: Uncoded 06/14/22 10:01 Allergen BLISTERS GLP-1RA AdvReac Unknown Hx of Uncoded 06/14/22 10:01 Pancreatitis Medications Home Medications Medication Instructions Recorded Confirmed Last Taken albuterol sulfate 90 mcg/actuation 2 puff inhalation Q6H PRN Wheezing 06/26/18 06/13/22 06/09/22 aerosol inhaler montelukast 10 mg tablet 10 mg PO HS 06/26/18 06/13/22 06/09/22 nitroglycerin 0.4 mg sublingual 1 tab sublingual UD PRN CHESTPAIN 06/26/18 06/13/22 Unknown tablet (Nitrostat) pantoprazole 40 mg tablet,delayed 40 mg PO BID 01/28/19 06/13/22 06/10/22 release Oxygen Home #1 ea 04/30/19 06/13/22 Unknown aspirin 81 mg tablet,delayed 81 mg PO HS 03/12/20 06/13/22 06/09/22 release blood-glucose meter (OneTouch 08/14/20 06/13/22 Unknown Verio Flex Meter) blood-glucose meter,continuous 02/03/21 06/13/22 Unknown (Dexcom G6 Bill Checker) blood-glucose sensor (Dexcom G6 02/03/21 06/13/22 Unknown Sensor device) blood-glucose transmitter (Dexcom 02/03/21 06/13/22 Unknown G6 Transmitter device) cetirizine 10 mg capsule (Zyrtec) 10 mg PO DAILY PRN Allergy Symptoms 03/05/21 06/13/2206/09/23 cholecalciferol (vitamin D3) 25 3,000 unit PO HS 03/05/21 06/13/22 06/09/22 mcg (1,000 unit) capsule (Vitamin D3) hydroxyzine pamoate 25 mg capsule 25 mg PO Q8H PRN anxiety 5 days 06/16/21 06/13/22 Unknown (Vistaril) #15 caps blood sugar diagnostic #1,100 ea 07/13/21 06/13/22 Unknown metoprolol succinate 25 mg 25 mg PO AMHS Other 08/04/21 06/13/22 06/09/22 tablet,extended release 24 hr insulin aspart U-100 100 unit/mL 100 unit subcut .COMPLEX #90 mL 08/31/21 06/13/22 06/09/22 (3 mL) subcutaneous pen (Novolog FlexPen U-100 Insulin aspart) morphine 100 mg tablet,extended 100 mg PO TID 10/12/21 06/13/22 06/10/22 release morphine 30 mg immediate release 30 mg PO TID PRN Severe Pain 02/17/22 06/13/22 06/10/22 tablet (Scale Score 7-10) clopidogrel 75 mg tablet 75 mg PO QAM 05/16/22 06/13/22 06/09/22 lubiprostone 24 mcg capsule 24 mcg PO BID 05/16/22 06/13/22 06/09/22 (Amitiza) coenzyme Q10 100 mg capsule (Co 100 mg PO DAILY 06/10/22 06/13/22 06/09/22 Q-10) hydromorphone 4 mg tablet 4 - 8 mg PO .Q4-6H PRN Pain 06/10/22 06/13/22 06/09/22 rosuvastatin 5 mg tablet 2.5 mg PO QAM 06/10/22 06/13/22 06/10/22 sucralfate 1 gram tablet 1 g PO ACHS 06/10/22 06/13/22 06/10/22 testosterone 1 pump topical DAILY 06/10/22 06/13/22 06/10/22 budesonide 0.5 mg/2 mL suspension 0.5 mg inhalation BID PRN copd exac 06/13/22 06/13/22 Unknown for nebulization furosemide 20 mg tablet 40 mg PO BID 06/13/22 06/13/22 Unknown insulin glargine U-300 conc 300 140 unit subcut DAILY 06/13/22 06/13/22 Unknown unit/mL (1.5 mL) subcutaneous pen (Toujeo SoloStar U-300 Insulin) Active Medications Generic Name Dose Route Start Last Admin Trade Name Freq PRN Reason Stop Dose Admin Acetaminophen 650 mg 06/13/22 14:41 06/14/22 05:58 Acetaminophen 325 Mg Tab PO 07/13/22 14:40 650 mg Q4H PRN Administration Pain or Fever Clopidogrel Bisulfate 75 mg 06/13/22 14:41 06/14/22 09:10 Clopidogrel Bisulfate 75 Mg Tab PO 07/13/22 14:40 75 mg QAM CHASITY Administration Enoxaparin Sodium 40 mg 06/14/22 09:00 06/14/22 09:10 Enoxaparin Inj 40 Mg/0.4 Ml Syr SQ 07/14/22 08:59 Not Given QAM [facility] Furosemide 40 mg 06/13/22 21:00 06/14/22 08:11 Furosemide 40 Mg Tab PO 07/13/22 20:59 40 mg BID CHASITY Administration Hydromorphone HCl 4 mg 06/13/22 15:31 06/14/22 03:14 Hydromorphone Hcl 2 Mg Tab PO 06/27/22 15:30 4 mg Q4H PRN Administration severe pain (6,7,8,9,10) Insulin Aspart 0 units 06/13/22 16:30 06/14/22 09:10 Insulin Aspart Per Unit SC 07/13/22 16:29 Not Given ACHS [facility] Insulin Glargine 0 units 06/14/22 09:00 06/14/22 09:11 Lantus Per Unit Charge SQ 07/14/22 08:59 Not Given QAM [facility] Protocol Lubiprostone 24 mcg 06/13/22 21:00 06/14/22 08:10 Lubiprostone 8 Mcg Cap PO 07/13/22 20:59 24 mcg BID CHASITY Administration Metoprolol Succinate 25 mg 06/13/22 21:00 06/14/22 08:11 Metoprolol Succ 25mg Ext Rel Tab PO 07/13/22 20:59 25 mg AMHS CHASITY Administration Miscellaneous 1 each 06/13/22 16:00 06/14/22 08:13 Coenzyme Q10 ~ Order Awaiting Action N/A 07/13/22 15:59 Not Given QS [facility] Miscellaneous 1 each 06/14/22 00:00 06/14/22 08:13 Morphine 100 Mg ~ Order Awaiting Action N/A 07/14/22 00:00 Not Given QS [facility]ASITY Miscellaneous 1 each 06/14/22 08:59 06/14/22 08:13 Remove Nicoderm Patch N/A 07/14/22 08:58 1 each DAILY@0859 CHASITY Administration Morphine Sulfate 30 mg 06/13/22 20:07 06/13/22 21:34 Morphine Sulfate Cr 15 Mg Tabcr PO 06/27/22 20:59 30 mg BID PRN Administration pain Morphine Sulfate 90 mg 06/14/22 08:00 06/14/22 08:10 Morphine Sulfate Cr 15 Mg Tabcr PO 06/28/22 07:59 90 mg TID@0800,1400,2000 CHASITY Administration Nicotine 21 mg 06/13/22 14:41 06/14/22 08:13 Nicotine 21 Mg/24 Hr Tdsy TD 07/13/22 14:40 21 mg QAM [facility] Administration Ondansetron HCl 4 mg 06/13/22 14:41 06/14/22 05:42 Ondansetron Inj 2 Mg/Ml 2 Ml Vial IV 07/13/22 14:40 4 mg Q6H PRN Administration Nausea Pantoprazole Sodium 40 mg 06/13/22 21:00 06/14/22 08:11 Pantoprazole 40 Mg Tab PO 07/13/22 20:59 40 mg BID CHASITY Administration Polyethylene Glycol 17 gm 06/13/22 14:41 06/14/22 09:11 Polyethylene (Miralax) 17 Gm Pack PO 07/13/22 14:40 Not Given DAILY [facility]AS[facility] Potassium Chloride 20 meq 06/14/22 09:00 06/14/22 08:12 Potassium Chloride Crtab 20 Meq Tabcr PO 07/14/22 08:59 20 meq QAM CHASITY Administration Rosuvastatin Calcium 2.5 mg 06/14/22 09:00 06/14/22 08:12 Rosuvastatin Calcium 5 Mg Tab PO 07/14/22 08:59 2.5 mg QAM CHASITY Administration Senna/Docusate Sodium 1 tab 06/13/22 14:41 06/14/22 08:11 Docusate Sodium/Senna 50/8.6mg Tab PO 07/13/22 14:40 1 tab BID CHASITY Administration Sucralfate 1 gm 06/13/22 16:30 06/14/22 08:11 Sucralfate 1 Gm Tab PO 07/13/22 16:29 1 gm ACHS CHASITY Administration Vitamin D 3,000 units 06/13/22 21:00 06/13/22 20:40 Cholecalciferol 1,000 Units 25 Mcg Tab PO 07/13/22 20:59 3,000 units HS CHASITY Administration NPO Date Last Intake of Fluids: 06/13/22 Date Last Intake of Solids: 06/13/22 Past Medical History Medical History Bundle branch block, bilateral Chronic back pain Chronic kidney disease (CKD) Degenerative disc disease Diabetes mellitus, type 2 Diverticular disease GERD (gastroesophageal reflux disease) History of acute pancreatitis RELATED TO A STONE OBSTRUCTION, 10/2017 History of basal cell carcinoma History of SCC (squamous cell carcinoma) of skin History of skin cancer S/P EXCISION OF SCALP Irritable bowel syndrome (IBS) Migraines Morbid obesity Obesity Polycythemia, secondary Post traumatic stress disorder Postlaminectomy syndrome of lumbosacral region Sleep apnea CPAP WITH 4-5 L/MIN HS. S/P UPPP. SOBOE (shortness of breath on exertion) Tachycardia Therapeutic opioid-induced constipation (OIC) Tinea pedis Exercise / Class Metabolic Activity II 4-5 Yardwork/Stairs/Walk up hill Past Family History Family History Other COPD (chronic obstructive pulmonary disease) Cancer Diabetes Heart disease Hypertension Past Surgical History Surgical History Fusion of spine MULTIPLE LUMBARX2 History of appendectomy History of back surgery History of cardiac cath 2017-NO STENTS History of colonoscopy History of ERCP 11/2017 [facility] History of esophagogastroduodenoscopy (EGD) History of repair of rotator cuff LEFT SHOULDER History of surgery RT ELBOW History of tonsillectomy History of uvulopalatopharyngoplasty FOR TREATMENT OF AR S/P cholecystectomy Past Anesthesia History No Hx of Anesthesia Complications and No Family Hx of Anesthesia Complications History of PONV No Hx of PONV and No Hx of Motion Sickness Social History Smoking Status: Current every day smoker tobacco type: cigarettes Smoking cigarettes per day: 20 Hx Alcohol Use: No Hx Substance Use: Yes substance use type: marijuana Substance Use Type Other:: MEDICAL MARIJUANA-PAST 2 WEEKS-PER PCP SUGGESTION-PT DID NOT LIKE EFFECT Last Used Substance: Days (ago) Physical Exam Vital Signs Last Vital Signs Temp 37.0 C 06/14/22 10:02 Pulse 93 H 06/14/22 10:02 Resp 18 06/14/22 10:02 BP 182/97 H 06/14/22 10:02 Pulse Ox 96 06/14/22 10:02 O2 Del Method Room Air 06/14/22 10:02 O2 Flow Rate 4 06/14/22 03:23 Constitutional + obese ENMT Mouth: no TMJ abnormality Thyromental Distance: > or= 3.5 Finger Breadths Mallampati Class: III Neck normal visual inspection and trachea midline; neck extension not limited Respiratory normal respiratory effort Auscultation: lungs clear to auscultation bilaterally Cardiovascular Rate/Rhythm: regular rate and regular rhythm Heart Sounds: no murmur Musculoskeletal Spine: normal cervical ROM Extremities: full ROM of extremities Neurologic moves all extremities Psychiatric Orientation: alert and oriented x 3 Testing Laboratory Results 06/14/22 06:41 06/14/22 06:41 Urine Color Dark Yellow 06/13/22 08:12 Urine Appearance Clear (Clear) 06/13/22 08:12 Urine pH 6.0 (4.5-7.5) 06/13/22 08:12 Ur Specific [place] 1.030 (1.000-1.030) 06/13/22 08:12 Urine Protein 4+ (Negative) H 06/13/22 08:12 Urine Glucose (UA) 1+ (Negative) H 06/13/22 08:12 Urine Ketones 2+ (Negative) H 06/13/22 08:12 Urine Nitrite Negative (Negative) 06/13/22 08:12 Ur Leukocyte Esterase Negative (Negative) 06/13/22 08:12 Urine WBC (Auto) 1-5 /hpf (0-5) 06/13/22 08:12 Urine RBC (Auto) 5-10 /hpf (0-4) H 06/13/22 08:12 U Hyaline Cast (Auto) 5-10 /lpf (0-5) H 06/13/22 08:12 U Epithel Cells (Auto) 10-20 /lpf (0-5) H 06/13/22 08:12 Urine Bacteria (Auto) Negative (Negative) 06/13/22 08:12 06/14/22 06/14/22 07:37 01:15 POC Glucose 174 H 164 H
--- NOTE | 2022-06-14 10:13 | History & Physical Report ---
Date of Service June 14, 2022 Assessment & Plan Admission and Anticipated Discharge Date Admission Date: June 13, 2022 History of Present Illness Primary Care Provider: Oswaldo Sampson MD Intractable LUQ pain CV: RRR Resp: CTA Abd: soft A/p: EGD Allergies Allergy/AdvReac Type Severity Reaction Status Date / Time clarithromycin Allergy Severe DAMAGED Verified 06/14/22 10:01 LIVER PER PT-REQUIRED HOSPITALIZATION adhesive AdvReac Mild SKIN Verified 06/14/22 10:01 RASH-WITH SOME TAPES Uncoded Nonscreenable Allergy Intermediate PLASTICS: Uncoded 06/14/22 10:01 Allergen BLISTERS GLP-1RA AdvReac Unknown Hx of Uncoded 06/14/22 10:01 Pancreatitis Home Medications Medication Instructions Recorded Confirmed Type albuterol sulfate 90 mcg/actuation 2 puff inhalation Q6H PRN Wheezing 06/26/18 06/13/22 History aerosol inhaler montelukast 10 mg tablet 10 mg PO HS 06/26/18 06/13/22 History nitroglycerin 0.4 mg sublingual 1 tab sublingual UD PRN CHESTPAIN 06/26/18 06/13/22 History tablet (Nitrostat) pantoprazole 40 mg tablet,delayed 40 mg PO BID 01/28/19 06/13/22 History release Oxygen Home #1 ea 04/30/19 06/13/22 History aspirin 81 mg tablet,delayed 81 mg PO HS 03/12/20 06/13/22 History release blood-glucose meter (OneTouch 08/14/20 06/13/22 History Verio Flex Meter) blood-glucose meter,continuous 02/03/21 06/13/22 History (Dexcom G6 Replacer) blood-glucose sensor (Dexcom G6 02/03/21 06/13/22 History Sensor device) blood-glucose transmitter (Dexcom 02/03/21 06/13/22 History G6 Transmitter device) cetirizine 10 mg capsule (Zyrtec) 10 mg PO DAILY PRN Allergy Symptoms 03/05/21 06/13/22 History cholecalciferol (vitamin D3) 25 3,000 unit PO HS 03/05/21 06/13/22 History mcg (1,000 unit) capsule (Vitamin D3) hydroxyzine pamoate 25 mg capsule 25 mg PO Q8H PRN anxiety 5 days 06/16/21 06/13/22 Rx (Vistaril) #15 caps blood sugar diagnostic #1,100 ea 07/13/21 06/13/22 Rx metoprolol succinate 25 mg 25 mg PO AMHS Other 08/04/21 06/13/22 History tablet,extended release 24 hr insulin aspart U-100 100 unit/mL 100 unit subcut .COMPLEX #90 mL 08/31/21 06/13/22 Rx (3 mL) subcutaneous pen (Novolog FlexPen U-100 Insulin aspart) morphine 100 mg tablet,extended 100 mg PO TID 10/12/21 06/13/22 History release morphine 30 mg immediate release 30 mg PO TID PRN Severe Pain 02/17/22 06/13/22 History tablet (Scale Score 7-10) clopidogrel 75 mg tablet 75 mg PO QAM 05/16/22 06/13/22 History lubiprostone 24 mcg capsule 24 mcg PO BID 05/16/22 06/13/22 History (Amitiza) coenzyme Q10 100 mg capsule (Co 100 mg PO DAILY 06/10/22 06/13/22 History Q-10) hydromorphone 4 mg tablet 4 - 8 mg PO .Q4-6H PRN Pain 06/10/22 06/13/22 History rosuvastatin 5 mg tablet 2.5 mg PO QAM 06/10/22 06/13/22 History sucralfate 1 gram tablet 1 g PO ACHS 06/10/22 06/13/22 History testosterone 1 pump topical DAILY 06/10/22 06/13/22 History budesonide 0.5 mg/2 mL suspension 0.5 mg inhalation BID PRN copd exac 06/13/22 06/13/22 History for nebulization furosemide 20 mg tablet 40 mg PO BID 06/13/22 06/13/22 History insulin glargine U-300 conc 300 140 unit subcut DAILY 06/13/22 06/13/22 History unit/mL (1.5 mL) subcutaneous pen (Toujeo SoloStar U-300 Insulin) Past Med/Surg History Medical History Bundle branch block, bilateral Chronic back pain Chronic kidney disease (CKD) Degenerative disc disease Diabetes mellitus, type 2 Diverticular disease GERD (gastroesophageal reflux disease) History of acute pancreatitis RELATED TO A STONE OBSTRUCTION, 10/2017 History of basal cell carcinoma History of SCC (squamous cell carcinoma) of skin History of skin cancer S/P EXCISION OF SCALP Irritable bowel syndrome (IBS) Migraines Morbid obesity Obesity Polycythemia, secondary Post traumatic stress disorder Postlaminectomy syndrome of lumbosacral region Sleep apnea CPAP WITH 4-5 L/MIN HS. S/P UPPP. SOBOE (shortness of breath on exertion) Tachycardia Therapeutic opioid-induced constipation (OIC) Tinea pedis Surgical History Fusion of spine MULTIPLE LUMBARX2 History of appendectomy History of back surgery History of cardiac cath 2017-NO STENTS History of colonoscopy History of ERCP 11/2017 [facility] History of esophagogastroduodenoscopy (EGD) History of repair of rotator cuff LEFT SHOULDER History of surgery RT ELBOW History of tonsillectomy History of uvulopalatopharyngoplasty FOR TREATMENT OF AR S/P cholecystectomy Family History Other COPD (chronic obstructive pulmonary disease) Cancer Diabetes Heart disease Hypertension Social History Smoking Status: Current every day smoker Tobacco Type: Cigarettes packs per day: 1; Cigarettes Per Day: 20; Second Hand Exposure: No; Hx Alcohol Use: No Hx Substance Use: Yes Last Used Substance: Days (ago) Substance Use Type Other:: MEDICAL MARIJUANA-PAST 2 WEEKS-PER PCP SUGGESTION-PT DID NOT LIKE EFFECT Preferred Language: Cypriot Communication Ability: Effective Range Mechanic Required: No Beliefs That Will Affect Care: None marital status: Current Living Situation: Spouse Current Living Situation Comment: [facility] Feels Safe at Home: Yes Safety Concerns: Feels Safe At This Time Assistive Devices: Cane, CPAP, Glasses, Oxygen - at Night and Other Assistive Devices Comment: TENs unit Results & Data Results & Data ([facility]) Vital Signs (Past 12 Hours) Vital Signs Temp Pulse Pulse Pulse Resp BP Pulse Ox 06/14/22 09:49 74 16 171/76 H 94 06/14/22 07:30 36.6 C 79 16 135/66 90 06/14/22 04:05 36.8 C 79 18 155/75 H 97 06/13/22 22:26 76 06/14/22 03:23 28 H 06/13/22 23:12 36.7 C 83 18 172/93 H 96 O2 Del Method O2 Flow Rate 06/14/22 09:49 Room Air 06/14/22 07:30 Room Air 06/14/22 04:05 CPAP 06/13/22 22:26 06/14/22 03:23 4 06/13/22 23:12 Room Air Code Status & VTE Plan VTE Prophylaxis Plan VTE Prophylaxis will be ordered: Yes
[2022-06-14] MEDS ORDERED: PROPOFOL IV EMULSION 10 MG/ML 20 ML VIAL IV ONE (10:23)
[2022-06-14] MEDS ORDERED: MIDAZOLAM HCL 1 MG/ML 2ML VIAL ONE (10:23)
[2022-06-14] MEDS ORDERED: LIDOCAINE 2% MPF LOCAL 5 ML VIAL INFIL ONE (10:23)
[2022-06-14] MEDS ORDERED: KETAMINE 50 MG/5 ML SYRINGE ONE (10:29)
--- NOTE | 2022-06-14 10:50 | GI REPORT ---
Patient Name: Nabil Cole Procedure Date: 06/14/2022 10:13 AM Date of : 1960 Admit Type: Inpatient Age: 61 Gender: Male Attending MD: Suni Henao MD, Procedure: Upper GI endoscopy Providers: Suni Henao MD Referring MD: Agnieszka Araiza Do Indications: Abdominal pain Medicines: See the Anesthesia note for documentation of the administered medications Complications: No immediate complications. Estimated Blood Loss: Estimated blood loss: none. Procedure: Pre-Anesthesia Assessment: - ASA Grade Assessment: III - A patient with severe systemic disease. After obtaining informed consent, the endoscope was passed under direct vision. Throughout the procedure, the patient's blood pressure, pulse, and oxygen saturations were monitored continuously. The Endoscope was introduced through the mouth, and advanced to the second part of duodenum. The upper GI endoscopy was accomplished without difficulty. The patient tolerated the procedure well. Findings: There were esophageal mucosal changes suggestive of short-segment Stone's esophagus, classified as Stone's stage C1-M2 per [place] criteria present at the gastroesophageal junction. The GE junction was at 38 cm. The maximum longitudinal extent of these mucosal changes was 2 cm in length. Mucosa was biopsied with a cold forceps for histology. One specimen bottle was sent to pathology. The gastroesophageal flap valve was visualized endoscopically and classified as Hill Grade I (prominent fold, tight to endoscope). There was a small amount of bilious fluid in the stomach. This was noted to reflux into the esophagus during the procedure. Pills were noted in the stomach. The stomach mucosa was normal. Random biopsies done. The duodenum was normal. The ampulla was normal. 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 His pain may be related to poor absorption of oral narcotics related to delayed gastric emptying. If pt has not had response to TP injection, consider Relistor trial. F/u with pain management to see if transdermal narcotics may have utility here. - Adv diet, consider discharge if tolerating PO. Kathie Todd MD 06/14/2022 10:50:01 AM This report has been signed electronically. Note Initiated On: 06/14/2022 10:13 AM Number of Addenda: 0 I attest to the content of the Intraoperative Record and orders documented therein, exceptions below {[id number]}
--- NOTE | 2022-06-14 11:37 | Anesthesiology Progress Note ---
Date of Service June 14, 2022 Anesthesia Post Procedure Vital Signs Vital Signs: Temp Pulse Pulse Pulse Pulse Resp BP 06/14/22 11:27 06/14/22 11:19 84 20 06/14/22 11:03 92 H 18 06/14/22 10:50 90 16 06/14/22 10:02 37.0 C 93 H 18 06/14/22 09:49 74 16 06/14/22 07:30 36.6 C 79 16 06/14/22 04:05 36.8 C 79 18 06/13/22 22:26 76 06/14/22 03:23 28 H 06/13/22 23:12 36.7 C 83 18 06/13/22 20:26 96 H 22 06/13/22 19:40 37.0 C 96 H 18 06/13/22 17:29 69 06/13/22 15:47 36.9 C 80 18 06/13/22 14:41 36.9 C 70 18 06/13/22 13:00 79 20 175/77 H 06/13/22 12:30 70 18 166/76 H 06/13/22 12:20 78 06/13/22 12:00 76 19 183/109 H BP Pulse Ox O2 Del Method O2 Flow Rate 06/14/22 11:27 93 Room Air 06/14/22 11:19 149/70 H 94 Nasal Cannula 3 06/14/22 11:03 137/76 94 Nasal Cannula 3 06/14/22 10:50 114/54 L 94 Nasal Cannula 3 06/14/22 10:02 182/97 H 96 Room Air 06/14/22 09:49 171/76 H 94 Room Air 06/14/22 07:30 135/66 90 Room Air 06/14/22 04:05 155/75 H 97 CPAP 06/13/22 22:26 06/14/22 03:23 4 06/13/22 23:12 172/93 H 96 Room Air 06/13/22 20:26 95 4 06/13/22 19:40 169/89 H 95 Room Air 06/13/22 17:29 06/13/22 15:47 173/78 H 97 Room Air 06/13/22 14:41 204/93 H 97 Room Air 06/13/22 13:00 97 Room Air 06/13/22 12:30 94 Room Air 06/13/22 12:20 06/13/22 12:00 96 Room Air Pain Intensity Left Upper Abdomen: Pain Intensity: 8 Transfer of Care Handoff Completed per policy Notes Mental Status: alert / awake / arousable Patient Amnestic to Procedure: Yes Nausea / Vomiting: adequately controlled Pain: adequately controlled Airway Patency, RR, SpO2: stable & adequate BP & HR: stable & adequate Hydration State: stable & adequate Anesthetic Complications: no major complications apparent and Pt Satisfied with anesthetic care
--- NOTE | 2022-06-14 12:02 | Pharmacy Report ---
Pharmacy Glycemic Short Note 2 - Date of Service June 14, 2022 - Glycemic Short BSG Results (Last 24 hours): 06/13/22 06/13/22 06/14/22 16:40 20:28 01:15 Glucose POC Glucose 227 H 113 H 164 H 06/14/22 06/14/22 06/14/22 06:41 07:37 11:40 Glucose 175 H POC Glucose 174 H 173 H OUTPATIENT ANTIDIABETIC REGIMEN: * 8.6% 03/28/22 * Toujeo 140 units daily (reports taking 75-90 units)- has not taken for several days d/t reduced oral intake * Novolog ~20 units with meals ASSESSMENT: * Patient admitted with abdominal pain, for EGD today and TP injections. * Patient refused basal insulin and has not taken such for several days- fasting this AM 174 mg/dL, will keep reduced scale * Novolog parameters currently correction factor 20/Carb Ratio of 5. Will slightly loosen CF * Recommend close f/u with outpatient provider to assist with outpatient regimen insulin needs seem to differ PLAN FOR INPATIENT GLYCEMIC CONTROL: * Hold outpatient oral diabetes medications * Basal insulin * Lantus 0/40/65 units qAM per scale- patient refused this AM * Bolus insulin * NovoLog per scale ACHS or Q6hrs while NPO * Goal Range: Low 120 mg/dL - High 160 mg/dL * Correction Factor: 25 mg/dL/unit * Nutritional / Prandial insulin per carb ratio of 1 unit per 5 grams CHO consumed
--- NOTE | 2022-06-14 14:22 | Discharge Summary ---
Discharge Summary Date of Service June 14, 2022 Notes For Next Care Provider Medication Changes From Visit please see [facility] Admission HPI Per Admitting Provider This is a 61-year-old male who has a significant past medical history of insulin-dependent T2DM, diabetic polyneuropathy, AR on CPAP 4 L of oxygen at at bedtime, COPD, chronic diastolic and right heart failure, CAD, HTN, secondary polycythemia receiving phlebotomy every 2 to 3 weeks and failed back syndrome who presents to ED secondary to left upper quadrant abdominal pain for the past 4 to 5 weeks. Of significance patient was hospitalized February 2022 after sustaining an acute [place] receiving 1 BYRON to LAD. He is currently maintained on dual antiplatelet therapy. Of note over the past 4 to 5 weeks he has been experiencing this left upper quadrant abdominal pain. Pain is constant and occasionally radiates over to the umbilicus but waxes and wanes in severity. He is unable to pinpoint what makes pain worse and states that stretching seems to make it better. He has associated nausea, chills, sweats and chest pain associated with the severe pain. Of significance patient has failed back syndrome and chronic pain due to 6 previous back surgeries. He states during his second back surgery in the an anterior approach was performed and since then he has had numbness to his left lower quadrant and proximal aspect of left upper thigh. Due to chronic pain syndrome he is on high-dose narcotics morphine 100 mg 3 times a day as well as as needed morphine IR and Dilaudid. He is on Amitiza for constipation. He states due to the pain he is weaned off several his medications to try to delineate cause. He has stopped his Amitiza and Lasix for the past 2 to 3 days. His last bowel movement was very small and was this morning otherwise it was probably 3 to 4 days ago. He was seen in the ER on 06/[address] abdomen pelvis at that time revealed no acute abnormality. Today while in the ER at the peak of his abdominal pain he also experienced substernal chest pain that was nonradiating. This was associated with lightheadedness and nausea. It lasted approximately 5 minutes and resolved on its own. An EKG was performed at that time revealed no significant ST or T wave change. He was given a full dose aspirin. Due to abdominal pain and chest pain he has been recommended for admission to hospital. Of significance he was evaluated by general surgery as an outpatient and underwent evaluation of inguinal hernias which was negative. He would like to get established with GI however has been unable to get an appointment as an outpatient. In ED patient made hemodynamically stable although he was significantly hypertensive. His CBC revealed mild elevation WBC at 12.37, H&H 13.8 and 44.1, sodium 134, glucose 197, Trope 10.7 and urinalysis with significant protein and blood but no evidence of infection. CT scan today again negative for any acute abnormality, diverticulosis is seen without diverticulitis, bilateral nonspecific perinephritic stranding is again noted. Pt states, "If i have to live with this pain I would rather ." Constitutional: WD/WN, vitals as above, appears in pain, sitting up in bed, pleasant, conversing easily Admission Exam Per Admitting Provider Head: Normocephalic, Atraumatic Eyes: PERRL, conjunctivae normal, anicteric sclerae ENMT: external ear and nose normal, oropharynx normal dry membranes Neck: trachea midline, no thyromegaly normal visual inspection Respiratory: normal respiratory effort, lungs clear to auscultation, no wheeze, rales, rhonchi. Normal insp/exp effort, no accessory muscle use Cardiovascular: RRR, no murmur, b/l + 1 pretibial and +2 pedal edema Vessels: no JVD or carotid bruit Chest: normal inspection of chest , no pain to palp Abdomen:obese, distended abd, +pain to palp LUQ with minimal touch, +rebound,BS x 4, soft, nontender, no hepatosplenomegaly Musculoskeletal: no cyanosis or clubbing, extremities motor strength 5/5 Skin: no rashes, warm and dry normal turgor Neurologic: PERRL, EOMI, accommodation nl, no face palsy, no dysarthria CN's II-XI intact bilaterally and moves all extremities Psychiatric: A+Ox3, euthymic affect Lymphatic: no cervical or axillary lymphadenopathy : deferred Principal Dx & Hospital Course #1 = Principal Diagnosis (1) Therapeutic opioid-induced constipation (OIC): (2) Gastroparesis: (3) Abdominal pain: (4) CAD (coronary artery disease): (5) Chronic diastolic CHF (congestive heart failure): (6) Type 2 diabetes mellitus with insulin therapy: (7) Obesity: (8) Polycythemia, secondary: (9) COPD (chronic obstructive pulmonary disease): (10) Morbid obesity: Plan This is a 61-year-old male who has a significant past medical history of insulin-dependent T2DM, diabetic polyneuropathy, AR on CPAP 4 L of oxygen at at bedtime, COPD, chronic diastolic and right heart failure, CAD, HTN, secondary polycythemia receiving phlebotomy every 2 to 3 weeks and chronic pain in his back presented to ED secondary to left upper quadrant abdominal pain for the past 4 to 5 weeks. Left upper quadrant abdominal pain Gastroparesis CT: no acute abn, b/l perinephritic stranding present on multiple CT since Apr 2022 pt is on high dose narcotics due to failed back syndrome no apparent source of abdominal pain he is on PPI bid and carafate which he felt helped initially but not recently - these were continued aggressive bowel regimen, resumed amitiza and add daily miralax and bid Senna S prn Simethicone pt has been seen by gen surg as outpt diet as tolerated GI was consulted and zion underwent an EGD on 06/14 There were esophageal mucosal changes suggestive of Stone's-biopsy sent A small amount of bilious fluid was seen in the stomach, pills were noted in the stomach and the stomach mucosa was normal with biopsies taken. The duodenum was normal. The findings were consistent with a narcotic induced gastroparesis, and he may n ot be absorbing his oral narcotics related to delayed gastric emptying. Followup with pain management for consideration of transdermal narcotics which may be more effective. Chest pain pt reports cp in the ER associated with lack of ER provider giving enough narcotics to control his pain He states that he edid not suffer chest pain prior to coming into the ER He has a history of stent in the past/known CAD EKG was nonischemic and HS troponin was trended overnight and was negative. Chest pain resolved when his pain was better controlled. CAD, hx of BYRON to LAD 02/2022 Chronic HFpEF with right sided failure HTN Bifascicular block pt stopped lasix for past 3-4 days has increased pedal edema but iss euvolemic and compensated Lasix was resumed. continue metoprolol, statin Continue dual antiplatelet therapy uninterrupted for 6 months per cardiology IDDM, T2 lantus/novolog per protocol A1c 8.6 03/28/2022 Consult glycemic pharmacy Given patient's significant reduced intake will reduce long-acting insulin NovoLog per protocol Microscopic hematuria Bilateral perinephric stranding is seen on CAT scan Discussed with urology, recommend outpatient eval they set up OP follow up AR on CPAP Nocturnal hypoxemia CPAP and oxygen at bedtime Secondary polycythemia Patient gets as needed for phlebotomy typically every 2 to [address] Cox Tobacco abuse Nicotine patch Encourage cessation, patient is working on it Failed back syndrome Chronic pain Lumbar surgery x 6 pt follows [facility] Morphine 100mg TID, prn Morphine 30mg BID prn, Dilaudid 4mg q4hr prn He was discharged in stable condition and was requesting to leave. He was accompanied by his daughter and he verbalized a clear understanding of the findings and recommendations. Updated Medication List Medication Instructions Recorded Confirmed Type albuterol sulfate 90 mcg/actuation 2 puff inhalation Q6H PRN Wheezing 06/26/18 06/13/22 History aerosol inhaler montelukast 10 mg tablet 10 mg PO HS 06/26/18 06/13/22 History nitroglycerin 0.4 mg sublingual 1 tab sublingual UD PRN CHESTPAIN 06/26/18 06/13/22 History tablet (Nitrostat) pantoprazole 40 mg tablet,delayed 40 mg PO BID 01/28/19 06/13/22 History release Oxygen Home #1 ea 04/30/19 06/13/22 History aspirin 81 mg tablet,delayed 81 mg PO HS 03/12/20 06/13/22 History release blood-glucose meter (OneTouch 08/14/20 06/13/22 History Verio Flex Meter) blood-glucose meter,continuous 02/03/21 06/13/22 History (Dexcom G6 Surface Supply Breathing Apparatus) blood-glucose sensor (Dexcom G6 02/03/21 06/13/22 History Sensor device) blood-glucose transmitter (Dexcom 02/03/21 06/13/22 History G6 Transmitter device) cetirizine 10 mg capsule (Zyrtec) 10 mg PO DAILY PRN Allergy Symptoms 03/05/21 06/13/22 History cholecalciferol (vitamin D3) 25 3,000 unit PO HS 03/05/21 06/13/22 History mcg (1,000 unit) capsule (Vitamin D3) hydroxyzine pamoate 25 mg capsule 25 mg PO Q8H PRN anxiety 5 days 06/16/21 06/13/22 Rx (Vistaril) #15 caps blood sugar diagnostic #1,100 ea 07/13/21 06/13/22 Rx metoprolol succinate 25 mg 25 mg PO AMHS Other 08/04/21 06/13/22 History tablet,extended release 24 hr insulin aspart U-100 100 unit/mL 100 unit subcut .COMPLEX #90 mL 08/31/21 06/13/22 Rx (3 mL) subcutaneous pen (Novolog FlexPen U-100 Insulin aspart) morphine 100 mg tablet,extended 100 mg PO TID 10/12/21 06/13/22 History release morphine 30 mg immediate release 30 mg PO TID PRN Severe Pain 02/17/22 06/13/22 History tablet (Scale Score 7-10) clopidogrel 75 mg tablet 75 mg PO QAM 05/16/22 06/13/22 History lubiprostone 24 mcg capsule 24 mcg PO BID 05/16/22 06/13/22 History (Amitiza) coenzyme Q10 100 mg capsule (Co 100 mg PO DAILY 06/10/22 06/13/22 History Q-10) hydromorphone 4 mg tablet 4 - 8 mg PO .Q4-6H PRN Pain 06/10/22 06/13/22 History rosuvastatin 5 mg tablet 2.5 mg PO QAM 06/10/22 06/13/22 History sucralfate 1 gram tablet 1 g PO ACHS 06/10/22 06/13/22 History budesonide 0.5 mg/2 mL suspension 0.5 mg inhalation BID PRN copd exac 06/13/22 06/13/22 History for nebulization furosemide 20 mg tablet 40 mg PO BID 06/13/22 06/13/22 History insulin glargine U-300 conc 300 140 unit subcut DAILY 06/13/22 06/13/22 History unit/mL (1.5 mL) subcutaneous pen (Toujeo SoloStar U-300 Insulin) ondansetron 4 mg disintegrating 4 mg PO DAILY PRN nausea and 06/14/22 Rx tablet vomiting #10 tabs testosterone 2 pump topical DAILY #225 grams 06/20/22 Rx Hospital Stay Data Consultations 06/13/22 11:25 ED Decision to Admit Stat 06/13/22 12:45 Consult Gastroenterology Routine 06/13/22 17:44 Consult Pain Management Routine Procedures Performed Operation Date: 06/14/22 17:05 Actual Procedures p EGD Biopsy Cytology - Suni Henao MD Diagnostic Imagining Performed 06/13/22 08:48 CT Abd and Pelvis [CT abd pelvis IV con only] Stat 06/13/22 13:02 US venous doppler LE BI Stat Pending Results Patient Have Any Pending Studies at Discharge: No Discharge Instructions Given to Patient (Per Discharging Provider) Please take all medications as instructed on discharge list below. It isn't totally clear what was causing your abdominal pain but was thought to be from narcotic induced gastroparesis, which is a slowing down of gut motility. When the gut slows down, proper absorption of narcotic pills to control pain cannot occur. 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 Please also consider that absorption of medications may be altered by taking carafate or other such medications at the same time. For best absorption, please separate those medications that may interact. Your local pharmacist may be able to help you with that information. So overall, your pain is thought to be from your body not seeing the same level of medication it did in the past because your gut motility has slowed down. To be clear this is different from being dehydrated from diuretic therapy like Lasix (furosemide). While you were admitted, your urine was found to have blood and protein within it, which is abnormal. Please discuss this further with your primary care physician (PCP) and/or kidney specialist that you see. Please follow-up with your primary care physician within one week of this hospital stay to touch base on the constipation and abdominal pain, and regarding the abnormal findings in your urine. It was a pleasure taking care of you! Please call if you have any questions or problems. You can reach a [facility] hospitalist on duty at [facility] 24 hours a day by calling [phone]. Take care of yourself. Agnieszka Araiza, DO [facility] Hospitalist Total Time Total Time Spent Total Time Spent (In Minutes): 60
[2022-06-14] MEDS ORDERED: ASPIRIN 81 MG ECTAB PO SCH (21:00)
[2022-06-16 09:48] LABS: 7-Aminoclonazepam DNR ng/mL (<25); Alpha-Hydroxyalprazolam DNR ng/mL (<25); Alphahydroxymidazolam DNR ng/mL (<50); Alphahydroxytriazolam DNR ng/mL (<50); Amobarbital DNR ng/mL (<100); Amphetamines, Ur NEGATIVE ng/mL (<500); Amphetemines Ur GC/MS DNR ng/mL (<250); Barbiturates, Urine NEGATIVE ng/mL (<300); Benzodiazepines,Ur NEGATIVE ng/mL (<100); Butalbital DNR ng/mL (<100); Cocaine, Urine NEGATIVE ng/mL (<150); Cocaine,Ur GC/MS DNR ng/mL (<100); Codeine NEGATIVE ng/mL (<50); Confirmatory Facility DNR; EDDP DNR ng/mL (<100); Hydrocodone NEGATIVE ng/mL (<50); Hydromorphone 1680 ng/mL (<50); Hydroxyethylflurazepam DNR ng/mL (<50); Lorazepam DNR ng/mL (<50); Methadone, Ur GC/MS NEGATIVE ng/mL (<100); Methadone, Urine DNR ng/mL (<100); Methamphetamine DNR ng/mL (<250); Morphine >10000 ng/mL (<50); Norhydrocodone NEGATIVE ng/mL (<50); Noroxycodone DNR ng/mL (<50); Opiates, Urine POSITIVE ng/mL (<100); Oxycodone,Ur Screen NEGATIVE ng/mL (<100); Pentobarbital DNR ng/mL (<100); Phencyclidine, Ur NEGATIVE ng/mL (<25); Phencyclidine,Ur GC/MS DNR ng/mL (<25); Secobarbital DNR ng/mL (<100); THC20, Qual, Urine POSITIVE ng/mL (<20); Temazepam DNR ng/mL (<50); Tetrahydrocannabinol 91 ng/mL (<5)
== END 2022-06-14 15:12 | disposition home or self-care (01) ==
LOC: 2N 07:54 → ED 07:54 → SUATTDRO 11:37 → 2N 14:23

== ENCOUNTER 2022-09-13 11:39 | Inpatient (IN) ==
[2022-09-13] MEDS ORDERED: ACETAMINOPHEN 1,000 MG/100 ML VIAL IV STA (12:16)
[2022-09-13] MEDS ORDERED: NITROGLYCERIN 2% OINTMENT 30GM TUBE EXT STA (12:16)
[2022-09-13 13:10] LABS: Basophils # (auto) 0.05 K/uL (0-0.2); Basophils % (auto) 0.4 %; Eosinophils # (auto) 0.11 K/uL (0-0.50); Eosinophils % (auto) 0.9 %; Hematocrit (blood only) 44.4 % (42.0-52.0); Hemoglobin 13.4 g/dl (14.0-18.0); Immature Granulocytes # (auto) 0.07 K/uL (0.01-0.20); Immature Granulocytes % (auto) 0.6 %; Lymphocytes # (auto) 1.52 K/uL (1.2-3.4); Lymphocytes % (auto) 12.3 %; Mean Corpuscular Hemoglobin 22.8 pg (25.0-34.0); Mean Corpuscular Hgb Conc 30.2 g/dL (32.0-36.0); Mean Corpuscular Volume 75.6 fL (80.0-100.0); Mean Platelet Volume 8.8 fL (9.4-12.4); Monocytes # (auto) 0.99 K/uL (0.11-0.59); Neutrophils # (auto) 9.66 K/uL (1.40-6.50); Neutrophils % (auto) 77.8 %; Platelet Count 281 K/uL (130-400); RDW Coefficient of Variation 19.9 % (11.5-14.5); RDW Standard Deviation 51.4 fL (36.4-46.3); Red Blood Count 5.87 M/uL (4.70-6.10)
--- NOTE | 2022-09-13 13:13 | Emergency Department Note ---
Impression & Plan Chest pain, DELVALLE (dyspnea on exertion), Non-compliant behavior, Non-ST elevation RI (NSTEMI), Hyperglycemia ED Provider Note ED Provider Note NAME: DAKOTA RIOS AGE:61 SEX: Male : 1960 ARRIVES VIA: Private vehicle INFORMANT: Patient ED PROVIDER(s): Magy Pleitez DO CHIEF COMPLAINT: Dyspnea on exertion, chest pain HPI: This is a 61-year-old male presents emergency department due to several months of worsening and progressive dyspnea with exertion and chest pain. Patient states he did have a heart attack back in the fall and had a stent placed. He sees Hubert Fulton PA-C for cardiology. He states he is due to see them next month. He states for the last 3 months he has had progressively worsening shortness of breath with any activity to the point now where he can no longer walk across the room without feeling short of breath. He states in the interim he began also having accompanying chest pain which is slowly worsened and become more severe. He states more recently he is also become lighthe aded/dizzy with these episodes. He states whenever he gets the symptoms he sits down, takes a nitro pill and applies his oxygen that he has at home. Patient denies any recent illness. When asked about his medications he states that he only takes half a tablet of his metoprolol as needed if he feels a fast heart rate and he has been self adjusting his Lasix. He feels that they had given him too much and dehydrated him which worsened his gastroparesis. Patient is on chronic narcotic meds due to a long history of back pain after multiple prior back surgeries. PAST MEDICAL HISTORY:See Below PAST SURGICAL HISTORY:See Below FAMILY HISTORY:See Below SOCIAL HISTORY:See Below HOME MEDICATIONS:See Below ALLERGIES:See Below VITALS:See Below PHYSICAL EXAMINATION: GENERAL: alert, unwell appearing, well nourished, no distress, non-toxic EYE EXAM: normal conjunctiva, PERRL and EOM's grossly intact OROPHARYNX: no exudate, no erythema, lips, buccal mucosa, and tongue normal and mucous membranes are moist NECK: supple, no nuchal rigidity, no adenopathy, non-tender LUNGS: Clear to auscultation. Normal chest wall mechanics, no w/r/r HEART: no murmurs, S1 normal and S2 normal, mild pain with palpation over the central chest/sternum ABDOMEN: abdomen soft, non-tender, normo-active bowel sounds, no masses, no rebound or guarding. BACK: Back is symmetrical on inspection and there is no deformity, no midline tenderness, no CVA tenderness. SKIN: no rashes, petechiae, orbruising UPPER EXTREMITIES: upper extremities are grossly normal. FROM, nml pulses b/l. LOWER EXTREMITIES: No pitting edema. FROM, nml pulses b/l. NEURO EXAM: Normal sensorium, cranial nerves II-XII grossly intact, normal speech, no facial droop,nogross weakness of arms, no gross weakness of legs. Gross sensation intact. No ataxia. Vital Signs: reviewed and remarkable Differential Diagnosis: ACS, CHF, PE, PNA, noncompliance, angina, anxiety, GERD, as well as others were MEDICAL DECISION MAKING: This is a 61-year-old male presents emergency department due to several months of worsening dyspnea with exertion and now with accompanying chest pain and lightheadedness. Patient with known coronary artery disease and admits to being noncompliant with his medications. Labs drawn and sent, IV established, EKG and chest x-ray performed at bedside and interpreted by me and patient monitored on telemetry. Patient had no active pain while monitored in the department. He was given IV Tylenol and Nitropaste. He was updated on all results. We discussed his elevated troponin and given history of known CAD the need for additional inpatient evaluation and monitoring. He verbalized understanding was in agreement with plan. I discussed case with on-call hospitalist team, and attempted to contact cardiology to discuss heparin versus additional aspirin until they could evaluate him to decide on further cardiac testing. After no returned call, I discussed this again with the [facility] hospitalist team. No acute ectopy or dysrhythmia noted on telemetry, patient hemodynamically stable throughout Consultation(s): 1405: Discussed with CESILIA Mcdermott with [facility] hospitalist team. 1438: I did attempt to contact [facility] cardiology, Dr. Rivera, no response returned. ER Treatment Provided: See below Diagnostics Interpreted By Me: -ECG: Normal sinus at 94, right bundle branch block, normal QTc, left axis, nonspecific ST/T wave changes; no change from 06/13/2022 -Cardiac Monitoring: An order was placed for continuous cardiac monitoring. The monitor shows a rate of 90 with normal sinus rhythm. -Laboratory studies: As stated above and show below. -Imaging studies: X-ray Chest: A single view study of the chest was reviewed and was negative for cardiomegaly, focal infiltrate, effusion, or wide mediastinum. Possible early pulm edema b/l. Triage Nursing Note Reviewed Prior/Outside Records Reviewed -prior echo, prior cardiology note Past Med/Surg History Medical History Bifascicular block Chronic back pain Chronic diastolic CHF (congestive heart failure) EF 63% 05/2021 echo Chronic kidney disease (CKD) COPD (chronic obstructive pulmonary disease) Degenerative disc disease Diabetes mellitus, type 2 IDDM Diverticular disease GERD (gastroesophageal reflux disease) History of acute pancreatitis RELATED TO A STONE OBSTRUCTION, 10/2017 History of basal cell carcinoma History of SCC (squamous cell carcinoma) of skin History of skin cancer S/P EXCISION OF SCALP Irritable bowel syndrome (IBS) Medical cannabis use Migraines Obesity On home oxygen therapy 3 lpm via n/c Polycythemia, secondary Post traumatic stress disorder Postlaminectomy syndrome of lumbosacral region Sleep apnea CPAP WITH 4 L/MIN HS. S/P UPPP. SOBOE (shortness of breath on exertion) Tachycardia Therapeutic opioid-induced constipation (OIC) Tinea pedis Transient ischemic attack (TIA) unsure of date - treated at [facility] -- 5+ years ago. Surgical History Fusion of spine MULTIPLE LUMBARX2 History of appendectomy History of back surgery total of 6 back surgeries. 2 failed surgeries History of cardiac cath 2017-NO STENTS History of cardiac cath 02/2022 with 1 stent (LAD) Dr Leach at [facility]. History of colonoscopy History of ERCP 11/2017 [facility] History of esophagogastroduodenoscopy (EGD) History of heart artery stent x1 stent (02/2022) History of repair of rotator cuff LEFT SHOULDER History of surgery RT ELBOW History of tonsillectomy History of uvulopalatopharyngoplasty FOR TREATMENT OF AR S/P cholecystectomy 07/02/1819 Grade 2 view, MAC 3, ETT 8. Family History Other COPD (chronic obstructive pulmonary disease) Cancer Diabetes Heart disease Hypertension Social History Smoking Status: Current every day smoker Tobacco Type: Cigarettes packs per day: 1; Cigarettes Per Day: 20; Second Hand Exposure: No; Do You Dip or Chew Tobacco: No; Tobacco Cessation Education Requested by Patient: No Hx Alcohol Use: No Hx Substance Use: Yes Last Used Substance: Days (ago) Last Used Substance Other:: FEW DAYS AGO Substance Use Type Other:: MEDICAL MARIJUANA Preferred Language: Gabonese Communication Ability: Effective Visual Impairment: No Limitations [employer] 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: No Beliefs That Will Affect Care: None marital status: Current Living Situation: Alone Current Living Situation Comment: [employer] Other Information That Helps Us Care for You: No Feels Safe at Home: Yes Safety Concerns: Feels Safe At This Time Assistive Devices: Cane, CPAP and Glasses Assistive Devices Comment: ONLY HAS CPAP MASK HERE Allergies Allergies Allergy/AdvReac Type Severity Reaction Status Date / Time clarithromycin Allergy Severe DAMAGED Verified 09/09/22 11:54 LIVER PER PT-REQUIRED HOSPITALIZATION latex Allergy Intermediate skin Verified 09/09/22 11:54 irritation/rash adhesive AdvReac Mild SKIN Verified 09/09/22 11:54 RASH-WITH SOME TAPES Uncoded Nonscreenable Allergy Intermediate PLASTICS: Uncoded 09/09/22 11:54 Allergen BLISTERS GLP-1RA AdvReac Unknown Hx of Uncoded 09/09/22 11:54 Pancreatitis Home Meds Home Medications Medication Instructions Recorded Confirmed albuterol sulfate 90 mcg/actuation 2 puff inhalation Q6H PRN Wheezing 06/26/18 09/13/22 aerosol inhaler montelukast 10 mg tablet 10 mg PO HS 06/26/18 09/13/22 nitroglycerin 0.4 mg sublingual 1 tab sublingual UD PRN CHESTPAIN 06/26/18 09/13/22 tablet (Nitrostat) pantoprazole 40 mg tablet,delayed 40 mg PO BID PRN Heartburn 01/28/19 09/13/22 release Oxygen Home #1 ea 04/30/19 09/13/22 aspirin 81 mg tablet,delayed 81 mg PO HS 03/12/20 09/13/22 release blood-glucose meter (OneTouch 08/14/20 09/13/22 Verio Flex Meter) blood-glucose meter,continuous 02/03/21 09/13/22 (Dexcom G6 Bar Host) blood-glucose sensor (Dexcom G6 02/03/21 09/13/22 Sensor device) blood-glucose transmitter (Dexcom 02/03/21 09/13/22 G6 Transmitter device) cetirizine 10 mg capsule (Zyrtec) 10 mg PO DAILY PRN Allergy Symptoms 03/05/21 09/13/22 cholecalciferol (vitamin D3) 25 3,000 unit PO HS 03/05/21 09/13/22 mcg (1,000 unit) capsule (Vitamin D3) morphine 100 mg tablet,extended 100 mg PO TID 10/12/21 09/13/22 release clopidogrel 75 mg tablet 75 mg PO QAM 05/16/22 09/13/22 budesonide 0.5 mg/2 mL suspension 0.5 mg inhalation BID PRN copd exac 06/13/22 09/13/22 for nebulization linaclotide 145 mcg capsule 145 mcg PO DAILY PRN Constipation 08/01/22 09/13/22 (Linzess) metoprolol succinate 25 mg 25 mg PO BID 08/01/22 09/13/22 tablet,extended release 24 hr morphine 30 mg tablet,extended 30 mg PO Q8H PRN Pain 08/01/22 09/13/22 release furosemide 20 mg tablet 40 mg PO BID 09/13/22 09/13/22 insulin glargine U-300 conc 300 140 unit subcut DAILY 09/13/22 09/13/22 unit/mL (1.5 mL) subcutaneous pen ([place] U-300 Insulin) morphine 15 mg immediate release 15 mg PO Q8H PRN Breakthrough Pain 09/13/22 09/13/22 tablet nicotine 21 mg/24 hr daily 1 patch transdermal DAILY 09/13/22 09/13/22 transdermal patch Previous Rx's Medication Instructions Recorded hydroxyzine pamoate 25 mg capsule 25 mg PO Q8H PRN anxiety 5 days 06/16/21 (Vistaril) #15 caps ondansetron 4 mg disintegrating 4 mg PO DAILY PRN nausea and 06/14/22 tablet vomiting #10 tabs testosterone 2 pump topical DAILY #225 grams 06/22/22 insulin aspart U-100 100 unit/mL 100 unit subcut .COMPLEX #90 mL 08/17/22 (3 mL) subcutaneous pen (Novolog FlexPen U-100 Insulin aspart) blood sugar diagnostic #900 ea 08/19/22 tamsulosin 0.4 mg capsule 0.4 mg PO HS #30 caps 08/29/22 Results & Data (ED) Vital Signs Vital Signs - 24 hr 09/13/22 11:43 09/13/22 12:07 09/13/22 12:25 Temperature 36.0 C L Temperature Source Temporal Artery Scan Pulse Rate 96 H 92 H Pulse Rate [Apical] 98 H Pulse Rate from SpO2 Sensor Respiratory Rate 20 19 Respiratory Effort / Characteristics Non-Labored Spontaneous Non-Labored Spontaneous Respiratory Depth Normal Normal Respiratory Pattern Regular Blood Pressure 187/76 H Blood Pressure [Right Arm] 173/81 H Blood Pressure Mean 113 Blood Pressure Mean [Right Arm] 111 Pulse Oximetry 97 95 Oxygen Delivery Method Room Air Room Air Oxygen Flow Rate Sepsis New/Unexplained Change in Mental Status N/A Sepsis Action Taken by Nursing No Action Required 09/13/22 12:24 09/13/22 12:30 09/13/22 12:30 Temperature Temperature Source Pulse Rate 95 H 97 H Pulse Rate [Apical] Pulse Rate from SpO2 Sensor Respiratory Rate 15 20 Respiratory Effort / Characteristics Respiratory Depth Respiratory Pattern Blood Pressure 171/85 H Blood Pressure [Right Arm] Blood Pressure Mean 113 Blood Pressure Mean [Right Arm] Pulse Oximetry Oxygen Delivery Method Oxygen Flow Rate Sepsis New/Unexplained Change in Mental Status Sepsis Action Taken by Nursing 09/13/22 13:00 09/13/22 13:00 09/13/22 13:30 Temperature Temperature Source Pulse Rate 93 H Pulse Rate [Apical] Pulse Rate from SpO2 Sensor 91 H Respiratory Rate 14 Respiratory Effort / Characteristics Respiratory Depth Respiratory Pattern Blood Pressure 145/67 H 142/58 H Blood Pressure [Right Arm] Blood Pressure Mean 93 86 Blood Pressure Mean [Right Arm] Pulse Oximetry 95 Oxygen Delivery Method Oxygen Flow Rate Sepsis New/Unexplained Change in Mental Status Sepsis Action Taken by Nursing 09/13/22 13:30 09/13/22 14:00 09/13/22 14:00 Temperature Temperature Source Pulse Rate 90 88 Pulse Rate [Apical] Pulse Rate from SpO2 Sensor 90 86 Respiratory Rate 16 19 Respiratory Effort / Characteristics Respiratory Depth Respiratory Pattern Blood Pressure 141/67 H Blood Pressure [Right Arm] Blood Pressure Mean 91 Blood Pressure Mean [Right Arm] Pulse Oximetry 95 96 Oxygen Delivery Method Nasal Cannula Oxygen Flow Rate 2 Sepsis New/Unexplained Change in Mental Status Sepsis Action Taken by Nursing Laboratory Data 09/13/22 12:38 09/13/22 12:38 Lab Results 09/13/22 09/13/22 09/13/22 Range/Units 12:38 12:38 12:38 WBC 12.40 H (4.8-10.8) K/ul RBC 5.87 (4.70-6.10) M/uL Hgb 13.4 L (14.0-18.0) g/dl Hct 44.4 (42.0-52.0) % MCV 75.6 L (80.0-100.0) fL MCH 22.8 L (25.0-34.0) pg MCHC 30.2 L (32.0-36.0) g/dL RDW Std Deviation 51.4 H (36.4-46.3) fL RDW Coeff of Ben 19.9 H (11.5-14.5) % Plt Count 281 (130-400) K/uL MPV 8.8 L (9.4-12.4) fL Immature Gran % (Auto) 0.6 % Neut % (Auto) 77.8 % Lymph % (Auto) 12.3 % [place] % (Auto) 8.0 % Eos % (Auto) 0.9 % Baso % (Auto) 0.4 % Neut # (Auto) 9.66 H (1.40-6.50) K/uL Lymph # (Auto) 1.52 (1.2-3.4) K/uL [place] # (Auto) 0.99 H (0.11-0.59) K/uL Eos # (Auto) 0.11 (0-0.50) K/uL Baso # (Auto) 0.05 (0-0.2) K/uL Immature Gran # (Auto) 0.07 (0.01-0.20) K/uL PT 10.0 (9.0-12.0) Seconds INR 0.9 (0.9-1.1) APTT (21.0-31.0) Seconds PTT Ratio Sodium 135 L (136-145) mmol/L Potassium 4.3 (3.5-5.1) mmol/L Chloride 102 (98-107) mmol/L Carbon Dioxide 28 (21-32) mmol/L Anion Gap 5 (3-11) BUN 16 (6-23) mg/dl Creatinine 0.99 (0.6-1.4) mg/dl Est Cr Clr Drug Dosing 97.4 ml/min Est GFR ( Amer) 96.2 ml/min Est GFR (Non-Af Amer) 83.0 ml/min BUN/Creatinine Ratio 16.2 (10-20) Glucose 221 H (70-99(Fasting)) mg/dl Calcium 9.1 (8.6-10.3) mg/dl Magnesium 2.0 (1.7-2.4) mg/dl Total Bilirubin 0.3 (0.2-1.0) mg/dl AST 15 (13-39) U/L ALT 15 (7-52) U/L Alkaline Phosphatase 70 (34-104) U/L Troponin I High Sens 93.4 H* (0-20) pg/ml Total Protein 6.3 (6.0-8.3) gm/dl Albumin 3.5 (3.4-5.0) gm/dl Globulin 2.8 (2.5-4.0) gm/dl Albumin/Globulin Ratio 1.3 (0.9-2) Lipase 19 (11-82) U/L TSH (0.300-4.500) uIu/ml 09/13/22 09/13/22 Range/Units 12:38 12:38 WBC (4.8-10.8) K/ul RBC (4.70-6.10) M/uL Hgb (14.0-18.0) g/dl Hct (42.0-52.0) % MCV (80.0-100.0) fL MCH (25.0-34.0) pg MCHC (32.0-36.0) g/dL RDW Std Deviation (36.4-46.3) fL RDW Coeff of Ben (11.5-14.5) % Plt Count (130-400) K/uL MPV (9.4-12.4) fL Immature Gran % (Auto) % Neut % (Auto) % Lymph % (Auto) % [place] % (Auto) % Eos % (Auto) % Baso % (Auto) % Neut # (Auto) (1.40-6.50) K/uL Lymph # (Auto) (1.2-3.4) K/uL [place] # (Auto) (0.11-0.59) K/uL Eos # (Auto) (0-0.50) K/uL Baso # (Auto) (0-0.2) K/uL Immature Gran # (Auto) (0.01-0.20) K/uL PT (9.0-12.0) Seconds INR (0.9-1.1) APTT 22.4 (21.0-31.0) Seconds PTT Ratio 0.8 Sodium (136-145) mmol/L Potassium (3.5-5.1) mmol/L Chloride (98-107) mmol/L Carbon Dioxide (21-32) mmol/L Anion Gap (3-11) BUN (6-23) mg/dl Creatinine (0.6-1.4) mg/dl Est Cr Clr Drug Dosing ml/min Est GFR ( Amer) ml/min Est GFR (Non-Af Amer) ml/min BUN/Creatinine Ratio (10-20) Glucose (70-99(Fasting)) mg/dl Calcium (8.6-10.3) mg/dl Magnesium (1.7-2.4) mg/dl Total Bilirubin (0.2-1.0) mg/dl AST (13-39) U/L ALT (7-52) U/L Alkaline Phosphatase (34-104) U/L Troponin I High Sens (0-20) pg/ml Total Protein (6.0-8.3) gm/dl Albumin (3.4-5.0) gm/dl Globulin (2.5-4.0) gm/dl Albumin/Globulin Ratio (0.9-2) Lipase (11-82) U/L TSH 1.534 (0.300-4.500) uIu/ml Administered Medications Aspirin (Aspirin 81 Mg Ectab) 81 mg PO HS [facility] Stop: 10/13/22 20:59 Last Admin: 09/13/22 20:09 Dose: 81 mg Documented By: TPB Heparin Sodium/Dextrose (Heparin Sodium/Dextrose) 25,000 units in 500 mls @ 31 mls/hr IV .Q16H8M [facility]AS[facility]; Protocol Stop: 10/13/22 17:29 Last Admin: 09/13/22 18:03 Dose: 1,550 units/hr, 31 mls/hr Documented By: SUZY Co-signed By: Montelukast Sodium (Montelukast Sodium 10 Mg Tablet) 10 mg PO [facility] Stop: 10/13/22 20:59 Last Admin: 09/13/22 20:09 Dose: 10 mg Documented By: TPB Morphine Sulfate (Morphine Sulfate Ir 15 Mg Tab (Immediate Release)) 15 mg PO Q8H PRN PRN Reason: breakthrough pain Stop: 09/27/22 17:02 Last Admin: 09/13/22 17:50 Dose: 15 mg Documented By: SUZY Morphine Sulfate (Morphine Sulfate Cr 60 Mg Tabcr) 120 mg PO TID [facility] Stop: 09/27/22 20:59 Last Admin: 09/13/22 20:08 Dose: 120 mg Documented By: TPMarci Morphine Sulfate (Morphine Sulfate Cr 15 Mg Tabcr) 15 mg PO TID [facility] Stop: 09/27/22 20:59 Last Admin: 09/13/22 20:08 Dose: 15 mg Documented By: DONNY Nitroglycerin (Nitroglycerin 2% Ointment 30gm Tube) 1 inch EXT Q6 [facility] Stop: 10/13/22 17:59 Last Admin: 09/13/22 18:37 Dose: 1 inch Documented By: TRELL Tamsulosin HCl (Tamsulosin Hcl 0.4 Mg Cap) 0.4 mg PO [facility] Stop: 10/13/22 20:59 Last Admin: 09/13/22 20:09 Dose: 0.4 mg Documented By: TPMarci Vitamin D (Cholecalciferol 1,000 Units 25 Mcg Tab) 3,000 units PO [facility] Stop: 10/13/22 20:59 Last Admin: 09/13/22 20:09 Dose: 3,000 units Documented By: TPB Discontinued Medications Furosemide (Furosemide Inj 20 Mg/2 Ml Vial) 20 mg IV ONE ONE Stop: 09/13/22 17:15 Last Admin: 09/13/22 18:36 Dose: 20 mg Documented By: TRELL Heparin Sodium (Porcine) (Heparin Sod (Porcine) 1000 Unit/Ml) 7,000 units IV NOW ONE Stop: 09/13/22 17:31 Last Admin: 09/13/22 18:04 Dose: 7,000 units Documented By: SUZY Co-signed By: Acetaminophen (Ofirmev) 1,000 mg in 100 mls @ 400 mls/hr IV NOW STA Stop: 09/13/22 12:30 Last Infusion: 09/13/22 13:15 Dose: 0 mls/hr Documented By: Admin: 09/13/22 12:39 Dose: 400 mls/hr Documented By: SUZY Metoprolol Succinate (Metoprolol Succ 25mg Ext Rel Tab) 25 mg PO NOW ONE Stop: 09/13/22 17:15 Last Admin: 09/13/22 18:36 Dose: 25 mg Documented By: TRELL Morphine Sulfate (Morphine Sulfate Cr 15 Mg Tabcr) 120 mg PO NOW ONE Stop: 09/13/22 15:46 Last Admin: 09/13/22 15:40 Dose: 120 mg Documented By: SUZY Nitroglycerin (Nitroglycerin 2% Ointment 30gm Tube) 1 inch EXT NOW STA Stop: 09/13/22 12:17 Last Admin: 09/13/22 12:22 Dose: 1 inch Documented By: SUZY Imaging Data Radiologist's Impression: Chest X-Ray 09/13/22 12:16 XR chest 1V portable HISTORY: Atypical chest pain. COMPARISON: Chest 05/04/2022. FINDINGS: No pneumothorax. No pleural effusions. The cardiac silhouette is normal in size. This progressive interstitial/vascular thickening. Otherwise, no new focal lung consolidations identified. IMPRESSION: Progressive interstitial/vascular thickening. This suggests mild congestive change. ACT 112: Negative or not required by law. Electronically signed by: Aubrey Cee M.D. 09/13/2022 1:19 PM Discharge Plan Visit Data Chief Complaint: Chest Pain Stated Complaint: CHEST PAIN, SOB, ARM PAIN ED Provider: Magy Pleitez Discharge Problem: Chest pain, DELVALLE (dyspnea on exertion), Non-compliant behavior, Non-ST elevation RI (NSTEMI), Hyperglycemia Patient Disposition: Admitted As Inpatient Discharge Instructions Interventions: ED Discharge Assessment Last Done: 09/13/22 17:54
--- NOTE | 2022-09-13 13:21 | XRay Report ---
XR chest 1V portable HISTORY: Atypical chest pain. COMPARISON: Chest 05/04/2022. FINDINGS: No pneumothorax. No pleural effusions. The cardiac silhouette is normal in size. This progr essive interstitial/vascular thickening. Otherwise, no new focal lung consolidations identified. IMPRESSION: Progressive interstitial/vascular thickening. This suggests mild congestive change. ACT 112: Negative or not required by law. Electronically signed by: Aubrey Cee M.D. 09/13/2022 1:19 PM
[2022-09-13 13:22] LABS: Albumin Globulin Ratio 1.3 (0.9-2); Albumin Level 3.5 gm/dl (3.4-5.0); BUN Creatinine Ratio 16.2 (10-20); Bilirubin,Total 0.3 mg/dl (0.2-1.0); Calcium 9.1 mg/dl (8.6-10.3); Creatinine Clr Calc Pharmacy 97.4 ml/min; Est GFR (African American) 96.2 ml/min; Globulin 2.8 gm/dl (2.5-4.0); Potassium 4.3 mmol/L (3.5-5.1); Total Protein 6.3 gm/dl (6.0-8.3)
[2022-09-13 13:35] LABS: Troponin I High Sensitivity 93.4 pg/ml (0-20)
[2022-09-13 13:36] LABS: INR 0.9 (0.9-1.1)
--- NOTE | 2022-09-13 14:04 | Electrocardiogram Report ---
Test Reason : Blood Pressure : / mmHG Vent. Rate : 094 BPM Atrial Rate : 094 BPM P-R Int : 164 ms QRS Dur : 128 ms QT Int : 360 ms P-R-T Axes : 061 -68 008 degrees QTc Int : 450 ms Normal sinus rhythm Right bundle branch block Left anterior fascicular block Abnormal ECG When compared with ECG of 13-JUN-2022 09:43, No significant change was found Confirmed by Fermin Teran ([id number]) on 09/13/2022 2:04:05 PM Referred By: Confirmed By:Fermin Teran
--- NOTE | 2022-09-13 14:14 | History & Physical Report ---
Date of Service September 13, 2022 Assessment & Plan (1) Noncompliance: (2) Heart failure, diastolic, with acute decompensation: (3) NSTEMI (non-ST elevated myocardial infarction): (4) Chest pain: (5) Non-compliant behavior: (6) COPD (chronic obstructive pulmonary disease): (7) BPH (benign prostatic hyperplasia): (8) Obstructive sleep apnea: (9) Hypertension: (10) CAD (coronary artery disease): (11) Opioid dependence: Plan This is a 61-year-old male with PMH of CAD s/p PCI of proximal LAD in Feb 2022 with cath also showing residual disease, type 2 diabetes, chronic diastolic congestive heart failure, hypertension, bifascicular bundle branch block, ongoing tobacco use, COPD, AR on CPAP, asthma, BPH, history of medication non- compliance and other medical problems listed below who presents with exertional chest pain. Unstable angina/NSTEMI Progressive exertional CP over past week Initial HS trop 93 -> 106. Continue trending ECG with bifascicular block but no acute changes Given nitro paste in ED. Discussed with cardiology who saw patient in ED - cont ntg past for CP and blood pressure control. Given missed dose of Toprol 25mg now NPO after midnight for cardiac catheterization in AM Continue aspirin, clopidogrel, and statin. Hold off on a retrial of ACEI/ARB for now Acute decompensated diastolic heart failure Noncompliant with lasix (has been taking 20mg PO daily when prescribed 40mg BID due to concern it worsens gastroparesis) Evidence of CXR with progressive interstitial/vascular thickening. This suggests mild congestive change Giving 20mg IV Lasix x 1 now Monitor daily weight, I&Os Hypertension Continue Toprol, lasix, monitor Dyslipidemia Agreeable to resume Rosuvastatin 2.5 mg/day. Future considerations per cardiology - ezetimibe, PCSK9 inhibitor therapy Tobacco use disorder Attempting to quit again, wearing nicotine patch - continue Chronic pain syndrome Chronic narcotic dependence 2/2 back pain, multiple surgeries Follows with Dr. Bell in [place] for pain mgmt Regimen while admitted: 135mg morphine ER PO TID, morphine IR PO 15mg Q8H PRN for breakthrough pain AR with nocturnal hypoxemia Cont CPAP with O2 bled through HS Chronic obstructive sleep apnea. Continue nocturnal CPAP and O2 supplementation. Secondary polycythemia 2/2 opioid use. Continue routine phlebotomy Q3 weeks DM II Most recent a1c 8 from Dec 2021- repeat ordered for AM Glycemic consult given high insulin requirement, NPO @[place]. Appreciate help managing during stay, clinical staff educator consulted as well DVT Ppx: IV heparin Code status: FULL PCP: Camilla Dispo: Admitted to PCU Patient seen in collaboration with Dr. Araiza. Please see addendum. I spent a total of 80 minutes coordinating, documenting, and providing care for this patient excluding time spent in the performance of separately billed Omnioxic es. History of Present Illness Chief Complaint: Chest pain Primary Care Provider: Oswaldo Sampson MD This is a 61-year-old male with PMH of CAD s/p PCI of proximal LAD in Feb 2022 with cath also showing residual disease, type 2 diabetes, chronic diastolic congestive heart failure, hypertension, bifascicular bundle branch block, ongoing tobacco use, COPD, AR on CPAP, asthma, BPH, history of medication non- compliance and other medical problems listed below who presents with exertional chest pain. Has had progressive exertional dyspnea over the past week or 2 with associated fatigue. Yesterday, notes 5 separate episodes of significant chest pressure described as central to chest with radiation to left arm with associated diaphoresis, shortness of breath and feelings of presyncope [place]. Took 4-5 sublingual nitroglycerin tabs throughout the course of the afternoon and use supplemental oxygen with improvement. States as long as he sat still, pain did not recur but throughout the evening and even into this morning, with any type of movement, pain and dyspnea recur. Patient with history of PCI to LAD in February 2022 and cardiac cath shows residual disease in left circumflex. Is usually on aspirin and Plavix but reportedly has not been taking recently due to a urological procedure despite recommendation that he continue those medications. No longer taking his statin because he feels cholesterol is well controlled. Takes metoprolol only when he "feels his heart racing". Reduced lasix dose to 20mg daily (prescribed to take 40mg po BID) due to it worsening issues with gastroparesis. Follows with Dr. Johnson and CESILIA Fulton in cardiology clinic. Currently endorsing a 1/10 ache in central chest but otherwise comfortable at rest. Denies fever, chills, lightheadedness, shortness of breath, nausea, vomiting, abdominal pain, dysuria, diarrhea or constipation. Of note, patient also with significant history of chronic pain syndrome secondary to back pain with history of multiple surgeries. Is on a high-dose opiate regimen and has been for approximately 20 years, per patient. Also has secondary polycythemia as a result of chronic narcotic use for which he is treated with phlebotomy approximately every 3 weeks. Allergies Allergy/AdvReac Type Severity Reaction Status Date / Time clarithromycin Allergy Severe DAMAGED Verified 09/09/22 11:54 LIVER PER PT-REQUIRED HOSPITALIZATION latex Allergy Intermediate skin Verified 09/09/22 11:54 irritation/rash adhesive AdvReac Mild SKIN Verified 09/09/22 11:54 RASH-WITH SOME TAPES Uncoded Nonscreenable Allergy Intermediate PLASTICS: Uncoded 09/09/22 11:54 Allergen BLISTERS GLP-1RA AdvReac Unknown Hx of Uncoded 09/09/22 11:54 Pancreatitis Home Medications Medication Instructions Recorded Confirmed Type albuterol sulfate 90 mcg/actuation 2 puff inhalation Q6H PRN Wheezing 06/26/18 09/13/22 History aerosol inhaler montelukast 10 mg tablet 10 mg PO HS 06/26/18 09/13/22 History nitroglycerin 0.4 mg sublingual 1 tab sublingual UD PRN CHESTPAIN 06/26/18 09/13/22 History tablet (Nitrostat) pantoprazole 40 mg tablet,delayed 40 mg PO BID PRN Heartburn 01/28/19 09/13/22 History release Oxygen Home #1 ea 04/30/19 09/13/22 History aspirin 81 mg tablet,delayed 81 mg PO HS 03/12/20 09/13/22 History release blood-glucose meter (OneTouch 08/14/20 09/13/22 History Verio Flex Meter) blood-glucose meter,continuous 02/03/21 09/13/22 History (DexStormMQ G6 Oiler Bander) blood-glucose sensor (Dexcom G6 02/03/21 09/13/22 History Sensor device) blood-glucose transmitter (Dexcom 02/03/21 09/13/22 History G6 Transmitter device) cetirizine 10 mg capsule (Zyrtec) 10 mg PO DAILY PRN Allergy Symptoms 03/05/21 09/13/22 History cholecalciferol (vitamin D3) 25 3,000 unit PO HS 03/05/21 09/13/22 History mcg (1,000 unit) capsule (Vitamin D3) hydroxyzine pamoate 25 mg capsule 25 mg PO Q8H PRN anxiety 5 days 06/16/21 09/13/22 Rx (Vistaril) #15 caps morphine 100 mg tablet,extended 100 mg PO TID 10/12/21 09/13/22 History release clopidogrel 75 mg tablet 75 mg PO QAM 05/16/22 09/13/22 History budesonide 0.5 mg/2 mL suspension 0.5 mg inhalation BID PRN copd exac 06/13/22 09/13/22 History for nebulization ondansetron 4 mg disintegrating 4 mg PO DAILY PRN nausea and 06/14/22 09/13/22 Rx tablet vomiting #10 tabs testosterone 2 pump topical DAILY #225 grams 06/22/22 09/13/22 Rx linaclotide 145 mcg capsule 145 mcg PO DAILY PRN Constipation 08/01/22 09/13/22 History (Linzess) metoprolol succinate 25 mg 25 mg PO BID 08/01/22 09/13/22 History tablet,extended release 24 hr morphine 30 mg tablet,extended 30 mg PO Q8H PRN Pain 08/01/22 09/13/22 History release insulin aspart U-100 100 unit/mL 100 unit subcut .COMPLEX #90 mL 08/17/22 09/13/22 Rx (3 mL) subcutaneous pen (Novolog FlexPen U-100 Insulin aspart) blood sugar diagnostic #900 ea 08/19/22 09/13/22 Rx tamsulosin 0.4 mg capsule 0.4 mg PO HS #30 caps 08/29/22 09/13/22 Rx furosemide 20 mg tablet 40 mg PO BID 09/13/22 09/13/22 History insulin glargine U-300 conc 300 140 unit subcut DAILY 09/13/22 09/13/22 History unit/mL (1.5 mL) subcutaneous pen (Toujeo SoloStar U-300 Insulin) morphine 15 mg immediate release 15 mg PO Q8H PRN Breakthrough Pain 09/13/22 09/13/22 History tablet nicotine 21 mg/24 hr daily 1 patch transdermal DAILY 09/13/22 09/13/22 History transdermal patch Past Med/Surg History Medical History Bifascicular block Chronic back pain Chronic diastolic CHF (congestive heart failure) EF 63% 05/2021 echo Chronic kidney disease (CKD) COPD (chronic obstructive pulmonary disease) Degenerative disc disease Diabetes mellitus, type 2 IDDM Diverticular disease GERD (gastroesophageal reflux disease) History of acute pancreatitis RELATED TO A STONE OBSTRUCTION, 10/2017 History of basal cell carcinoma History of SCC (squamous cell carcinoma) of skin History of skin cancer S/P EXCISION OF SCALP Irritable bowel syndrome (IBS) Medical cannabis use Migraines Obesity On home oxygen therapy 3 lpm via n/c Polycythemia, secondary Post traumatic stress disorder Postlaminectomy syndrome of lumbosacral region Sleep apnea CPAP WITH 4 L/MIN HS. S/P UPPP. SOBOE (shortness of breath on exertion) Tachycardia Therapeutic opioid-induced constipation (OIC) Tinea pedis Transient ischemic attack (TIA) unsure of date - treated at [facility] -- 5+ years ago. Surgical History Fusion of spine MULTIPLE LUMBARX2 History of appendectomy History of back surgery total of 6 back surgeries. 2 failed surgeries History of cardiac cath 2017-NO STENTS History of cardiac cath 02/2022 with 1 stent (LAD) Dr Leach at [facility]. History of colonoscopy History of ERCP 11/2017 [facility] History of esophagogastroduodenoscopy (EGD) History of heart artery stent x1 stent (02/2022) History of repair of rotator cuff LEFT SHOULDER History of surgery RT ELBOW History of tonsillectomy History of uvulopalatopharyngoplasty FOR TREATMENT OF AR S/P cholecystectomy 07/02/1819 Grade 2 view, MAC 3, ETT 8. Family History Other COPD (chronic obstructive pulmonary disease) Cancer Diabetes Heart disease Hypertension Social History Smoking Status: Current every day smoker Tobacco Type: Cigarettes packs per day: 1; Cigarettes Per Day: 20; Second Hand Exposure: No; Do You Dip or Chew Tobacco: No; Tobacco Cessation Education Requested by Patient: No Hx Alcohol Use: No Hx Substance Use: Yes Last Used Substance: Days (ago) Last Used Substance Other:: FEW DAYS AGO Substance Use Type Other:: MEDICAL MARIJUANA Preferred Language: Montserratian Communication Ability: Effective Visual Impairment: No Limitations Production Support Engineer Required: No Beliefs That Will Affect Care: None marital status: Current Living Situation: Alone Current Living Situation Comment: [place] Other Information That Helps Us Care for You: No Feels Safe at Home: Yes Safety Concerns: Feels Safe At This Time Assistive Devices: Cane, CPAP and Glasses Assistive Devices Comment: ONLY HAS CPAP MASK HERE Review of Systems Review of Systems: At least ten systems reviewed and negative except as noted in the HPI. Physical Exam Physical Exam: General Appearance: WD/WN, vitals as above, NAD, appears ill, flushed, obese, pleasant Head: normocephalic, atraumatic Eyes: normal inspection, PERRL, conjunctivae normal, anicteric sclerae ENT: external ear and nose normal, oropharynx normal Neck: normal visual inspection, trachea midline, no thyromegaly Respiratory: normal respiratory effort, decreased breath sounds bilaterally, no wheeze, rales or rhonchi. No accessory muscle use Cardiovascular: regular rate, rhythm, no murmur appreciated, normal peripheral pulses, 1+ BLE edema. Vessels: difficult to assess JVD given habitus Chest: normal inspection of chest Abdomen/GI: normal bowel sounds, soft, nontender, no hepatosplenomegaly Extremities/Musculoskeletal: no cyanosis or clubbing, extremities motor strength 5/5 Neurologic: PERRL, EOMI, accommodation nl, no face palsy, no dysarthria, CN's II-XI intact bilaterally and moves all extremities Psychiatric: A+Ox3, euthymic affect Skin: no rashes, normal color, warm/dry Results & Data Results & Data Vital Signs (Past 12 Hours) Vital Signs Temp Pulse Pulse Resp BP BP Pulse Ox 09/13/22 13:30 90 16 95 09/13/22 13:30 142/58 H 09/13/22 13:00 93 H 14 95 09/13/22 13:00 145/67 H 09/13/22 12:30 97 H 20 09/13/22 12:30 171/85 H 09/13/22 12:24 95 H 15 09/13/22 12:25 92 H 09/13/22 12:07 98 H 19 173/81 H 95 09/13/22 11:43 36.0 C L 96 H 20 187/76 H 97 O2 Del Method O2 Flow Rate 09/13/22 13:30 Nasal Cannula 2 09/13/22 13:30 09/13/22 13:00 09/13/22 13:00 09/13/22 12:30 09/13/22 12:30 09/13/22 12:24 09/13/22 12:25 09/13/22 12:07 Room Air 09/13/22 11:43 Room Air Laboratory Results Short CBC 09/13/22 Range/Units 12:38 WBC 12.40 H (4.8-10.8) K/ul Hgb 13.4 L (14.0-18.0) g/dl Hct 44.4 (42.0-52.0) % Plt Count 281 (130-400) K/uL BMP 09/13/22 12:38 Sodium 135 L Potassium 4.3 Chloride 102 Carbon Dioxide 28 BUN 16 Creatinine 0.99 Glucose 221 H Calcium 9.1 Liver Function 09/13/22 Range/Units 12:38 Total Bilirubin 0.3 (0.2-1.0) mg/dl AST 15 (13-39) U/L ALT 15 (7-52) U/L Alkaline Phosphatase 70 (34-104) U/L Albumin 3.5 (3.4-5.0) gm/dl Diagnostic Findings Chest X-Ray 09/13/22 12:16 XR chest 1V portable HISTORY: Atypical chest pain. COMPARISON: Chest 05/04/2022. FINDINGS: No pneumothorax. No pleural effusions. The cardiac silhouette is normal in size. This progressive interstitial/vascular thickening. Otherwise, no new focal lung consolidations identified. IMPRESSION: Progressive interstitial/vascular thickening. This suggests mild congestive change. ACT 112: Negative or not required by law. Electronically signed by: Aubrey Cee M.D. 09/13/2022 1:19 PM ECG Additional Comments: EKG reviewed-showing bifascicular block (known) without acute ST elevation. Similar to previous EKG Code Status & VTE Plan VTE Prophylaxis Plan VTE Prophylaxis will be ordered: Yes Supervising Physician Co-Signing Physician Notes I have seen and examined the patient and have discussed the case with the provider above. I agree with the assessment and plan as stated. 61 yo diabetic smoker with chronic pain on high dose narcotics presents with chest pain and nitro use in the past 24 hours. Intermittent chest pressure reported, however, today he is mostly concerned with receiving his afternoon dose of pain medications. He reports intermittent compliance with mediations such as metoprolol when he needs it, Lasix dose was adjusted, and he adjusts morphine doses as he needs to at home. Multiple issues with medications as noted above. Exam as noted above. Meds/labs/imaging/ekg reviewed. Clinical picture is consistent with NSTEMI with troponin rising. Cardiology has been consulted and is controlling pain with nitro paste. Will cont ASA, Plavix and statin. Heparin drip added. Cont to trend troponin until it peaks. Cards to consider heart cath. Progressive SOB is consistent with fluid overload and trial of Lasix has been given tonight. Echo ordered. Cont to follow clinically and importantly, we need to continue his high dose narcotics as he is very tolerant at this point. DO Jose G (9) Hypertension Hypertension type: unspecified Qualified Code(s): I10 - Essential (primary) hypertension (10) CAD (coronary artery disease) Associated angina: without angina Coronary Disease-Associated Artery/Lesion type: unspecified vessel or lesion type [place] vs. transplanted heart: [place] heart Qualified Code(s): I25.10 - Atherosclerotic heart disease of [place] coronary artery without angina pectoris
[2022-09-13] MEDS ORDERED: PHARMACY GLYCEMIC MGMT CONSULT PRN (15:11)
[2022-09-13] MEDS ORDERED: MoRPHine SULFATE CR 15 MG TABCR PO ONE ×2 (15:22→15:45)
[2022-09-13] MEDS ORDERED: MoRPHine SULFATE CR 15 MG TABCR PO SCH ×3 (15:30→21:00)
--- NOTE | 2022-09-13 16:19 | Cardiology Consultation ---
Date of Consultation September 13, 2022 Assessment & Plan (1) Chest pain: (2) DELVALLE (dyspnea on exertion): (3) NSTEMI (non-ST elevated myocardial infarction): (4) Heart failure, diastolic, with acute decompensation: (5) Noncompliance: Plan Unstable angina, NSTEMI. Nitro paste for chest pain and blood pressure control. IV heparin. Resting echocardiography. NPO after midnight for cardiac catheterization in AM. Continue beta-judit, aspirin, clopidogrel, and statin. Hold off on a retrial of ACEI/ARB for now. Acute decompensated right heart failure. Volume status: Mild hypervolemia. 20 mg IV furosemide x 1 now. Hypertension, uncontrolled. See above. Low HDL cholesterol/dyslipidemia. Rosuvastatin 2.5 mg/day. Future considerations: ezetimibe, PCSK9 inhibitor therapy. Conduction system disease with bifascicular block on EKG, right bundle-branch block, left anterior fascicular block. Asymptomatic. No current indication for permanent pacemaker implantation. Chronic obstructive sleep apnea. Continue nocturnal CPAP and O2 supplementation. Chronic tobacco use. Currently wearing a nicotine patch on the left upper extremity. Tobacco cessation urged. Secondary polycythemia, routine phlebotomy. Chronic narcotic dependence. Followed by Pain Management at [facility]. Reproducible chest wall discomfort. General measures advised. Supervising Physician Co-Signing Physician Notes I have reviewed the advance practitioner documentation and agree. I saw and evaluated the patient on the date of service referenced in the note and have performed a medically appropriate history and or exam. I think the best approach with this patient who is noncompliant with medications including his dual antiplatelet therapy after he received a stent in February and his continued smoking is for him to have a repeat cardiac catheterization. Unless his clinical course changes we will plan for tomorrow. History of Present Illness Reason for Consultation: NSTEMI, medication noncompliance Requesting Physician: Som Attending Physician: Jose G History of Present Illness Mr. Nabil Cole is a 61 year old male who presented to the [facility] ER on 09/13/2022, evaluation of chest pain Mr. Cole describes experiencing considerable fatigue starting a couple of weeks ago followed thereafter by progressive exertional dyspnea. He describes progressive shortness of breath making it "harder and harder to go room to room." Yesterday he was at [facility] with his family, out on their new pontoon boat, when he experienced symptoms highly reminiscent of those leading up to PCI in February 2022. He describes chest tightness with associated dyspnea, diaphoresis, and dizziness . Notes taking one sublingual nitroglycerin and utilizing supplemental oxygen with improvement prompt improvement. This was the first time he had to use sublingual nitroglycerin since before prior PCI. Yesterday afternoon and evening he had a total of four episodes of chest discomfort aided by sublingual nitroglycerin and supplemental oxygen. His is present at the bedside for my evaluation and notes urging him to go to the ER. Patient notes utilizing supplemental oxygen and CPAP and not having too much problem overnight. This AM he developed mild substernal chest discomfort and arm pain that remains present at the time of my evaluation. He notes that his heart is sore. There appears to be an element of musculoskeletal chest discomfort as he has reproducible chest pain for palpation of the chest pain. Anxiety is also contributing factor. Notes having significant anxiety treated with hydroxyzine. Notes taking metoprolol as needed, when he feels his heart rate is racing and/or when elevated on home pulse oximetery Notes self reduction/discontinuation of diuretics due to gastroparesis issues and feeling dehydrated, constipated. Recently, he has observed increased lower extremity peripheral edema and has resumed furosemide, taking two today. Patient was off of aspirin and Clopidogrel x 3 days for a recent urological intervention despite recommendation to continue. Ongoing tobacco abuse noted. Patient with poor tolerance to Brilinta (shortness of breath). EKG on presentation revealed normal sinus rhythm at 94 bpm with a right bundle branch block, left anterior fascicular block. When compared to prior available tracings, there is no significant change. High-sensitivity troponin is elevated at 93.4 pg/mL. Past Medical and Surgical History: Chronic back pain, failed back syndrome, narcotic dependent, high dose. Low HDL cholesterol - dyslipidemia with poor statin tolerance. Chronic obstructive sleep apnea with nocturnal CPAP and O2 supplementation. Secondary polycythemia with routine phlebotomy. Coronary atherosclerosis status post drug-eluting stent proximal LAD February 17, 2022 Cardiac catheterization at that time with left dominant coronary anatomy, eccentric ostial, proximal left anterior descending stenosis 70%, FFR positive, 70% distal left circumflex posterolateral branch stenosis, mildly elevated left end-diastolic pressure, 21 Conduction system disease with bifascicular block on EKG, right bundle-branch block, left anterior fascicular block. Diabetes mellitus, insulin requiring, with polyneuropathy Hypertension Diastolic heart failure Chronic tobacco use COPD/emphysema Moderate persistent asthma Respiratory bronchiolitis interstitial lung disease History of pancreatitis. BPH Impotence GERD, prior endoscopy with reflux esophagitis, gastritis Generalized anxiety disorder Depression Colonoscopy with polypectomy Cholecystectomy Left shoulder surgery Right elbow surgery Remove uvula for sleep apnea Status post appendectomy Tonsillectomy Family History: Mother with COPD. Father with lung cancer. Social history: Smoker, 1 pack/day x 42 years. No smokeless tobacco. No significant alcohol intake. 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 Chronic back pain, 6 prior back surgeries, chronic left lower quadrant numbness, chronic constipation, chronic lightheadedness, gastroparesis. Complete Review of Systems is as stated above, negative, or noncontributory. Allergies Allergy/AdvReac Type Severity Reaction Status Date / Time clarithromycin Allergy Severe DAMAGED Verified 09/09/22 11:54 LIVER PER PT-REQUIRED HOSPITALIZATION latex Allergy Intermediate skin Verified 09/09/22 11:54 irritation/rash adhesive AdvReac Mild SKIN Verified 09/09/22 11:54 RASH-WITH SOME TAPES Uncoded Nonscreenable Allergy Intermediate PLASTICS: Uncoded 09/09/22 11:54 Allergen BLISTERS GLP-1RA AdvReac Unknown Hx of Uncoded 09/09/22 11:54 Pancreatitis Home Medications Medication Instructions Recorded Confirmed Type albuterol sulfate 90 mcg/actuation 2 puff inhalation Q6H PRN Wheezing 06/26/18 09/13/22 History aerosol inhaler montelukast 10 mg tablet 10 mg PO HS 06/26/18 09/13/22 History nitroglycerin 0.4 mg sublingual 1 tab sublingual UD PRN CHESTPAIN 06/26/18 09/13/22 History tablet (Nitrostat) pantoprazole 40 mg tablet,delayed 40 mg PO BID PRN Heartburn 01/28/19 09/13/22 History release Oxygen Home #1 ea 04/30/19 09/13/22 History aspirin 81 mg tablet,delayed 81 mg PO HS 03/12/20 09/13/22 History release blood-glucose meter (OneTouch 08/14/20 09/13/22 History Verio Flex Meter) blood-glucose meter,continuous 02/03/21 09/13/22 History (Dexcom G6 Legal Arbitrator) blood-glucose sensor (Dexcom G6 02/03/21 09/13/22 History Sensor device) blood-glucose transmitter (Dexcom 02/03/21 09/13/22 History G6 Transmitter device) cetirizine 10 mg capsule (Zyrtec) 10 mg PO DAILY PRN Allergy Symptoms 03/05/21 09/13/22 History cholecalciferol (vitamin D3) 25 3,000 unit PO HS 03/05/21 09/13/22 History mcg (1,000 unit) capsule (Vitamin D3) hydroxyzine pamoate 25 mg capsule 25 mg PO Q8H PRN anxiety 5 days 06/16/21 09/13/22 Rx (Vistaril) #15 caps morphine 100 mg tablet,extended 100 mg PO TID@08,14,20 10/12/21 09/14/22 History release clopidogrel 75 mg tablet 75 mg PO QAM 05/16/22 09/13/22 History budesonide 0.5 mg/2 mL suspension 0.5 mg inhalation BID PRN copd exac 06/13/22 09/13/22 History for nebulization ondansetron 4 mg disintegrating 4 mg PO DAILY PRN nausea and 06/14/22 09/13/22 Rx tablet vomiting #10 tabs testosterone 2 pump topical DAILY #225 grams 06/22/22 09/13/22 Rx linaclotide 145 mcg capsule 145 mcg PO DAILY PRN Constipation 08/01/22 09/13/22 History (Linzess) metoprolol succinate 25 mg 25 mg PO BID 08/01/22 09/13/22 History tablet,extended release 24 hr morphine 30 mg tablet,extended 30 mg PO Q8H PRN breakthrough pain 08/01/22 09/13/22 History release 6-10 insulin aspart U-100 100 unit/mL 100 unit subcut .COMPLEX #90 mL 08/17/22 09/13/22 Rx (3 mL) subcutaneous pen (Novolog FlexPen U-100 Insulin aspart) blood sugar diagnostic #900 ea 08/19/22 09/13/22 Rx tamsulosin 0.4 mg capsule 0.4 mg PO HS #30 caps 08/29/22 09/13/22 Rx furosemide 20 mg tablet 40 mg PO BID 09/13/22 09/13/22 History insulin glargine U-300 conc 300 140 unit subcut DAILY 09/13/22 09/13/22 History unit/mL (1.5 mL) subcutaneous pen (Toujeo SoloStar U-300 Insulin) morphine 15 mg immediate release 15 mg PO Q8H PRN Breakthrough Pain 09/13/22 09/13/22 History tablet 1-6 nicotine 21 mg/24 hr daily 1 patch transdermal DAILY 09/13/22 09/13/22 History transdermal patch Patient History Medical History Bifascicular block Chronic back pain Chronic diastolic CHF (congestive heart failure) EF 63% 05/2021 echo Chronic kidney disease (CKD) COPD (chronic obstructive pulmonary disease) Degenerative disc disease Diabetes mellitus, type 2 IDDM Diverticular disease GERD (gastroesophageal reflux disease) History of acute pancreatitis RELATED TO A STONE OBSTRUCTION, 10/2017 History of basal cell carcinoma History of SCC (squamous cell carcinoma) of skin History of skin cancer S/P EXCISION OF SCALP Irritable bowel syndrome (IBS) Medical cannabis use Migraines Obesity On home oxygen therapy 3 lpm via n/c Polycythemia, secondary Post traumatic stress disorder Postlaminectomy syndrome of lumbosacral region Sleep apnea CPAP WITH 4 L/MIN HS. S/P UPPP. SOBOE (shortness of breath on exertion) Tachycardia Therapeutic opioid-induced constipation (OIC) Tinea pedis Transient ischemic attack (TIA) unsure of date - treated at [facility] -- 5+ years ago. Surgical History Fusion of spine MULTIPLE LUMBARX2 History of appendectomy History of back surgery total of 6 back surgeries. 2 failed surgeries History of cardiac cath 2017-NO STENTS History of cardiac cath 02/2022 with 1 stent (LAD) Dr Leach at [facility]. History of colonoscopy History of ERCP 11/2017 [facility] History of esophagogastroduodenoscopy (EGD) History of heart artery stent x1 stent (02/2022) History of repair of rotator cuff LEFT SHOULDER History of surgery RT ELBOW History of tonsillectomy History of uvulopalatopharyngoplasty FOR TREATMENT OF AR S/P cholecystectomy 07/02/1819 Grade 2 view, MAC 3, ETT 8. Family History Other COPD (chronic obstructive pulmonary disease) Cancer Diabetes Heart disease Hypertension Social History Smoking Status: Current every day smoker Tobacco Type: Cigarettes packs per day: 1; Cigarettes Per Day: 20; Second Hand Exposure: No; Do You Dip or Chew Tobacco: No; Tobacco Cessation Education Requested by Patient: No Hx Alcohol Use: No Hx Substance Use: No Preferred Language: Khmer Communication Ability: Effective Visual Impairment: No Limitations Machine Shop Lead Man Required: No Beliefs That Will Affect Care: None marital status: Current Living Situation: Alone [facility] Other Information That Helps Us Care for You: No Feels Safe at Home: Yes Safety Concerns: Feels Safe At This Time Assistive Devices: Cane, CPAP and Glasses Assistive Devices Comment: ONLY HAS CPAP MASK HERE Physical Exam Physical Exam: General: Obese male but no acute distress face plethoric Head: Normocephalic, no masses, lesions, tenderness or abnormalities Eyes: Conjunctiva are pink and non-injected, sclera clear Neck: No overt JVD Chest: Reproducible chest wall discomfort. Lungs: Diminished breath sounds with scattered rhonchi. No wheeze. Cardiac Exam: - regular rate & rhythm, 90 bpm. No murmur. No rubs. Abdomen: Obese, abdomen soft, moderately distended, no abnormal masses, no hepatosplenomegaly, no abdominal bruit, no femoral bruit Extremities: 1+ pretibial edema. No cyanosis. No clubbing. Pulses intact 2/4 Neuro: grossly normal exam Results & Data Vital Signs (Past 12 Hours) Vital Signs Temp Pulse Pulse Resp BP BP Pulse Ox 09/13/22 15:30 93 H 18 97 09/13/22 15:30 161/82 H 09/13/22 15:00 87 15 97 09/13/22 15:00 161/70 H 09/13/22 14:30 88 17 97 09/13/22 14:30 153/71 H 09/13/22 14:00 88 19 96 09/13/22 14:00 141/67 H 09/13/22 13:30 90 16 95 09/13/22 13:30 142/58 H 09/13/22 13:00 93 H 14 95 09/13/22 13:00 145/67 H 09/13/22 12:30 97 H 20 09/13/22 12:30 171/85 H 09/13/22 12:24 95 H 15 09/13/22 12:25 92 H 09/13/22 12:07 98 H 19 173/81 H 95 09/13/22 11:43 36.0 C L 96 H 20 187/76 H 97 O2 Del Method O2 Flow Rate 09/13/22 15:30 Room Air 09/13/22 15:30 09/13/22 15:00 Nasal Cannula 2 09/13/22 15:00 09/13/22 14:30 09/13/22 14:30 09/13/22 14:00 09/13/22 14:00 09/13/22 13:30 Nasal Cannula 2 09/13/22 13:30 09/13/22 13:00 09/13/22 13:00 09/13/22 12:30 09/13/22 12:30 09/13/22 12:24 09/13/22 12:25 09/13/22 12:07 Room Air 09/13/22 11:43 Room Air Laboratory Results Cardiac Enzymes 09/13/22 09/13/22 Range/Units 12:38 15:17 AST 15 (13-39) U/L Troponin I High Sens 93.4 H* 106.3 H* (0-20) pg/ml Coagulation 09/13/22 Range/Units 12:38 PT 10.0 (9.0-12.0) Seconds CBC 09/13/22 Range/Units 12:38 WBC 12.40 H (4.8-10.8) K/ul RBC 5.87 (4.70-6.10) M/uL Hgb 13.4 L (14.0-18.0) g/dl Hct 44.4 (42.0-52.0) % Plt Count 281 (130-400) K/uL Neut # (Auto) 9.66 H (1.40-6.50) K/uL Lymph # (Auto) 1.52 (1.2-3.4) K/uL [place] # (Auto) 0.99 H (0.11-0.59) K/uL Eos # (Auto) 0.11 (0-0.50) K/uL Baso # (Auto) 0.05 (0-0.2) K/uL Comprehensive Metabolic Panel 09/13/22 Range/Units 12:38 Sodium 135 L (136-145) mmol/L Potassium 4.3 (3.5-5.1) mmol/L Chloride 102 (98-107) mmol/L Carbon Dioxide 28 (21-32) mmol/L BUN 16 (6-23) mg/dl Creatinine 0.99 (0.6-1.4) mg/dl Glucose 221 H (70-99(Fasting)) mg/dl Calcium 9.1 (8.6-10.3) mg/dl AST 15 (13-39) U/L ALT 15 (7-52) U/L Alkaline Phosphatase 70 (34-104) U/L Total Protein 6.3 (6.0-8.3) gm/dl Albumin 3.5 (3.4-5.0) gm/dl Intake and Output 09/13/22 09/13/22 09/13/22 06:59 14:59 22:59 Intake Total 100 / 100 Output Total 425 / 425 Balance 100 / -325 -425 / -325 Intake: IV 100 / 100 Acetaminophen 1,000 mg In 100 100 / 100 ml @ 400 mls/hr IV NOW STA Rx#: [id number] Output: Urine 425 / 425 Other: Weight 115.2 kg Weight Measurement Method Chair Scale Patient Weight 09/14/22 06:59 Weight 115.2 kg Diagnostic Findings May 05, 2016 Coronary Angiography ([facility], Dr. Cast): Normal left main. 10% proximal, 20% mid LAD stenosis. 30% ostial D1 stenosis. 10% proximal D1 stenosis. 10% mid LCX stenosis. Normal RCA. ZIO Patch event monitor June 09, 2021: Patient had a min HR of 54 bpm, max HR of 187 bpm, and avg HR of 82 bpm. Predominant underlying rhythm was Sinus Rhythm. Bundle Branch Block/IVCD was present. 14 Supraventricular Tachycardia runs occurred, the run with the fastest interval lasting 5 beats with a max rate of 187 bpm, the longest lasting 17 beats with an avg rate of 133 bpm. Isolated SVEs were rare (<1.0%), SVE Couplets were rare (<1.0%), and SVE Triplets were rare (<1.0%). Isolated VEs were rare (<1.0%, 204), VE Couplets were rare (<1.0%, 2), and VE Triplets were rare (<1.0%, 1). Occasional change in QRS axis possibly due to positional changes. The patient submitted 34 event markers and 1 diary entry which correlated with sensed atrial and ventricular ectopic beats February 17, 2022 Coronary angiography ([facility], Dr. Johnson) Left dominant coronary anatomy Left main: Normal length and caliber no disease Left anterior descending: Type III in distribution. It gives rise to a tiny first diagonal branch a moderate sized second diagonal branch opposite of a large septal and a third small diagonal branch in its midportion. There is a long eccentric lesion in the very proximal left anterior descending of 70% or greater Left circumflex: Large and dominant distribution. Gives rise to a large obtuse marginal and 2 small second and third marginal branches before turning along the AV groove. It then gives rise to a large posterolateral branch, a small posterolateral branch and a small posterior descending artery. Within the left circumflex there are moderate irregularities. The large first posterolateral branch has a smooth 60 to 70% stenosis in its midportion. Right coronary artery: Small nondominant vessel consisting of an atrial branch and 2 right ventricular branches with mild luminal irregularity LV angiography: Not performed left ventricular end-diastolic pressure 21
[2022-09-13] MEDS ORDERED: ONDANSETRON 4 MG OD TAB PO PRN (17:07)
[2022-09-13] MEDS ORDERED: BUDESONIDE 0.5 MG/2 ML VIAL (PULMICORT) INH PRN (17:07)
[2022-09-13] MEDS ORDERED: NON-FORMULARY MEDICATION (Morphine 30 mg tablet extended release) PO PRN (17:07)
[2022-09-13] MEDS ORDERED: ALBUTEROL HFA 8 GM INHALER INH PRN (17:07)
[2022-09-13] MEDS ORDERED: MoRPHine SULFATE IR 15 MG TAB (IMMEDIATE RELEASE) PO PRN (17:07)
[2022-09-13] MEDS ORDERED: LINACLOTIDE 145 MCG CAPSULE PO PRN (17:07)
[2022-09-13] MEDS ORDERED: hydrOXYzine HCl 25 MG TAB PO PRN (17:07)
[2022-09-13] MEDS ORDERED: PANTOprazole 40 MG TAB PO PRN (17:07)
[2022-09-13] MEDS ORDERED: FUROSEMIDE INJ 20 MG/2 ML VIAL IV ONE (17:14)
[2022-09-13] MEDS ORDERED: METOPROLOL SUCC 25MG EXT REL TAB PO ONE (17:14)
[2022-09-13] MEDS ORDERED: DEXTROSE 50% 50 ML SYRINGE IV PRN (17:27)
[2022-09-13] MEDS ORDERED: GLUCAGON FOR INJ 1 MG VIAL SQ PRN (17:27)
[2022-09-13] MEDS ORDERED: GLUCOSE 40% GEL 15 GM TUBE PO PRN (17:27)
[2022-09-13] MEDS ORDERED: CARBOHYDRATES FOR HYPOGLYCEMIA PO PRN (17:27)
[2022-09-13] MEDS ORDERED: ACETAMINOPHEN 325 MG TAB PO PRN (17:27)
[2022-09-13] MEDS ORDERED: ONDANSETRON INJ 2 MG/ML 2 ML VIAL IV PRN (17:27)
[2022-09-13] MEDS ORDERED: POLYETHYLENE (MIRALAX) 17 GM PACK PO PRN (17:27)
[2022-09-13] MEDS ORDERED: GLUCOSE 10 TAB/TUBE PO PRN (17:27)
[2022-09-13] MEDS ORDERED: HEPARIN SOD (PORCINE) 1000 UNIT/ML IV ONE (17:30)
[2022-09-13] MEDS ORDERED: CETIRIZINE HCL 10 MG TABLET PO PRN (17:32)
[2022-09-13] MEDS: MoRPHine SULFATE IR 15 MG TAB (IMMEDIATE RELEASE) PO PRN (17:50)
[2022-09-13] MEDS: HEPARIN SODIUM/DEXTROSE 25,000 UNITS/500 ML BAG IV SCH (18:03)
[2022-09-13 18:16] LABS: Partial Thromboplastin Ratio 0.8; Partial Thromboplastin Time 22.4 Seconds (21.0-31.0)
[2022-09-13] MEDS: NITROGLYCERIN 2% OINTMENT 30GM TUBE EXT SCH ×2 (18:37→23:35)
[2022-09-13] MEDS: INSULIN ASPART PER UNIT CHARGE SC SCH (20:42)
[2022-09-13] MEDS ORDERED: ASPIRIN 81 MG ECTAB PO SCH (21:00)
[2022-09-13] MEDS ORDERED: CHOLECALCIFEROL 1,000 UNITS 25 MCG TAB PO SCH (21:00)
[2022-09-13] MEDS ORDERED: METOPROLOL SUCC 25MG EXT REL TAB PO SCH (21:00)
[2022-09-13] MEDS ORDERED: MONTELUKAST SODIUM 10 MG TABLET PO SCH (21:00)
[2022-09-13] MEDS ORDERED: TAMSULOSIN HCL 0.4 MG CAP PO SCH (21:00)
[2022-09-13] MEDS ORDERED: MoRPHine SULFATE CR 60 MG TABCR PO SCH (21:00)
[2022-09-13] MEDS ORDERED: MORPHINE 100 MG PO SCH (21:00)
[2022-09-14] MEDS: INSULIN ASPART PER UNIT CHARGE SC SCH ×4 (00:10→17:25)
[2022-09-14] MEDS ORDERED: MoRPHine SULFATE IR 15 MG TAB (IMMEDIATE RELEASE) PO STA (00:29)
[2022-09-14] MEDS ORDERED: ACETAMINOPHEN 1,000 MG/100 ML VIAL IV STA (00:32)
[2022-09-14] MEDS ORDERED: ACETAMINOPHEN 1,000 MG/100 ML VIAL IV PRN (00:32)
[2022-09-14 01:23] LABS: Partial Thromboplastin Ratio 1.3; Partial Thromboplastin Time 36.5 Seconds (21.0-31.0)
[2022-09-14] MEDS: MoRPHine SULFATE IR 15 MG TAB (IMMEDIATE RELEASE) PO PRN (02:00)
[2022-09-14] MEDS: HEPARIN SODIUM/DEXTROSE 25,000 UNITS/500 ML BAG IV SCH (03:55)
[2022-09-14] MEDS ORDERED: INSULIN ASPART PER UNIT CHARGE SC ONE (04:00)
[2022-09-14] MEDS ORDERED: MoRPHine SULFATE CR 15 MG TABCR PO SCH (04:30)
[2022-09-14] MEDS ORDERED: MoRPHine SULFATE CR 60 MG TABCR PO SCH (04:30)
[2022-09-14] MEDS ORDERED: MoRPHine SULFATE 4 MG/ML 1 ML CARP\\VIAL IV PRN (05:00)
--- NOTE | 2022-09-14 05:58 | Communication Note ---
Date of Service: September 14, 2022 Patient requesting for inpatient analgesic regimen to simulate home regimen as follows. Morphine sulfate extended release 100 mg 3 times daily (8 AM-2 PM-8 PM) MS IR 15 mg p.o. every 8 hours for breakthrough pain (scale 1-5) Morphine sulfate extended release 30 mg every 8 hours for breakthrough pain (scale 6-10)
[2022-09-14] MEDS ORDERED: MoRPHine SULFATE CR 15 MG TABCR PO ONE (06:15)
[2022-09-14] MEDS ORDERED: MoRPHine SULFATE IR 15 MG TAB (IMMEDIATE RELEASE) PO ONE (06:15)
[2022-09-14] MEDS ORDERED: MoRPHine SULFATE CR 15 MG TABCR PO PRN ×2 (06:20→12:30)
[2022-09-14] MEDS: NITROGLYCERIN 2% OINTMENT 30GM TUBE EXT SCH ×2 (06:32→12:45)
[2022-09-14] MEDS: Heparin IV Adult Wt-Based Standard WITH Bolus Protocol IV SCH ×3 (07:06→07:10)
[2022-09-14] MEDS: MoRPHine SULFATE CR 60 MG TABCR PO SCH ×2 (08:13→12:48)
[2022-09-14] MEDS: MoRPHine SULFATE CR 15 MG TABCR PO SCH ×2 (08:13→12:48)
--- NOTE | 2022-09-14 08:18 | Electrocardiogram Report ---
Test Reason : Blood Pressure : / mmHG Vent. Rate : 080 BPM Atrial Rate : 080 BPM P-R Int : 156 ms QRS Dur : 124 ms QT Int : 386 ms P-R-T Axes : 063 -64 004 degrees QTc Int : 445 ms Normal sinus rhythm Right bundle branch block Left anterior fascicular block Abnormal ECG When compared with ECG of 13-SEP-2022 11:51, No significant change was found Confirmed by Fermin Teran ([id number]) on 09/14/2022 8:17:45 AM Referred By: REFERRED SELF Confirmed By:Fermin Teran
[2022-09-14 08:49] LABS: Hematocrit (blood only) 43.8 % (42.0-52.0); Hemoglobin 13.2 g/dl (14.0-18.0); Mean Corpuscular Hemoglobin 22.6 pg (25.0-34.0); Mean Corpuscular Hgb Conc 30.1 g/dL (32.0-36.0); Mean Corpuscular Volume 75.1 fL (80.0-100.0); Mean Platelet Volume 8.8 fL (9.4-12.4); Platelet Count 284 K/uL (130-400); RDW Coefficient of Variation 19.9 % (11.5-14.5); RDW Standard Deviation 51.4 fL (36.4-46.3); Red Blood Count 5.83 M/uL (4.70-6.10); White Blood Count 9.73 K/ul (4.8-10.8)
--- NOTE | 2022-09-14 08:52 | Pain Management Consultation ---
Date of Consultation September 14, 2022 Assessment & Plan (1) Chronic back pain: (2) Chronic pain syndrome: (3) Opioid dependence: (4) Postlaminectomy syndrome of lumbosacral region: Plan Patient and express frustration on how he was not given his chronic opioid regimen during Emergency Department stay and how he was behind on his regimen and was experiencing increased pain until he could receive medications inpatient. There was also frustration on how the medications were not ordered like he typically takes at home. The medication regimen is currently ordered as he takes them at home. No changes were made. Regimen as follows: MS Contin 100mg TID, MS Contin 30mg TID PRN, and MS IR 15mg x 8 hours PRN. During discussion patient becomes increasingly irritated and anxious. and patient ask myself and accompanying RN to leave the room. Nothing to offer the patient at this time. He will follow up with [facility]. History of Present Illness Reason for Consultation: Chronic opioid use; opioid dependency; chronic lumbar pain Attending Physician: Lobito Bustos MD History of Present Illness Mr. Cole is a 61 year old male that is admitted for NSTEMI that is to receive cardiac catheterization this morning. He does have a significant history of chronic opioid use for chronic lumbar pain to which he follows with [facility]. He has been on high dose opioids for 20+ years. Current regimen includes MS Contin 100mg TID, MS Contin 30mg TID PRN, and MS IR 15mg if needed for breakthrough pain. He denies any side effects to the medications. Medication regimen is providing adequate pain relief. No change to his chronic pain complaints. Pain is located in the low back. No radiation of pain. Case discussed with Dr. Danay Nuñez Allergies Allergy/AdvReac Type Severity Reaction Status Date / Time clarithromycin Allergy Severe DAMAGED Verified 09/09/22 11:54 LIVER PER PT-REQUIRED HOSPITALIZATION latex Allergy Intermediate skin Verified 09/09/22 11:54 irritation/rash adhesive AdvReac Mild SKIN Verified 09/09/22 11:54 RASH-WITH SOME TAPES Uncoded Nonscreenable Allergy Intermediate PLASTICS: Uncoded 09/09/22 11:54 Allergen BLISTERS GLP-1RA AdvReac Unknown Hx of Uncoded 09/09/22 11:54 Pancreatitis Home Medications Medication Instructions Recorded Confirmed Type albuterol sulfate 90 mcg/actuation 2 puff inhalation Q6H PRN Wheezing 06/26/18 09/13/22 History aerosol inhaler montelukast 10 mg tablet 10 mg PO HS 06/26/18 09/13/22 History nitroglycerin 0.4 mg sublingual 1 tab sublingual UD PRN CHESTPAIN 06/26/18 09/13/22 History tablet (Nitrostat) pantoprazole 40 mg tablet,delayed 40 mg PO BID PRN Heartburn 01/28/19 09/13/22 History release Oxygen Home #1 ea 04/30/19 09/13/22 History aspirin 81 mg tablet,delayed 81 mg PO HS 03/12/20 09/13/22 History release blood-glucose meter (OneTouch 08/14/20 09/13/22 History Verio Flex Meter) blood-glucose meter,continuous 02/03/21 09/13/22 History (Dexcom G6 Control Systems Technician) blood-glucose sensor (Dexcom G6 02/03/21 09/13/22 History Sensor device) blood-glucose transmitter (Dexcom 02/03/21 09/13/22 History G6 Transmitter device) cetirizine 10 mg capsule (Zyrtec) 10 mg PO DAILY PRN Allergy Symptoms 03/05/21 09/13/22 History cholecalciferol (vitamin D3) 25 3,000 unit PO HS 03/05/21 09/13/22 History mcg (1,000 unit) capsule (Vitamin D3) hydroxyzine pamoate 25 mg capsule 25 mg PO Q8H PRN anxiety 5 days 06/16/21 09/13/22 Rx (Vistaril) #15 caps morphine 100 mg tablet,extended 100 mg PO TID@08,14,20 10/12/21 09/14/22 History release clopidogrel 75 mg tablet 75 mg PO QAM 05/16/22 09/13/22 History budesonide 0.5 mg/2 mL suspension 0.5 mg inhalation BID PRN copd exac 06/13/22 09/13/22 History for nebulization ondansetron 4 mg disintegrating 4 mg PO DAILY PRN nausea and 06/14/22 09/13/22 Rx tablet vomiting #10 tabs testosterone 2 pump topical DAILY #225 grams 06/22/22 09/13/22 Rx linaclotide 145 mcg capsule 145 mcg PO DAILY PRN Constipation 08/01/22 09/13/22 History (Linzess) metoprolol succinate 25 mg 25 mg PO BID 08/01/22 09/13/22 History tablet,extended release 24 hr morphine 30 mg tablet,extended 30 mg PO Q8H PRN breakthrough pain 08/01/22 09/13/22 History release 6-10 insulin aspart U-100 100 unit/mL 100 unit subcut .COMPLEX #90 mL 08/17/22 09/13/22 Rx (3 mL) subcutaneous pen (Novolog FlexPen U-100 Insulin aspart) blood sugar diagnostic #900 ea 08/19/22 09/13/22 Rx tamsulosin 0.4 mg capsule 0.4 mg PO HS #30 caps 08/29/22 09/13/22 Rx furosemide 20 mg tablet 40 mg PO BID 09/13/22 09/13/22 History insulin glargine U-300 conc 300 140 unit subcut DAILY 09/13/22 09/13/22 History unit/mL (1.5 mL) subcutaneous pen (Toujeo SoloStar U-300 Insulin) morphine 15 mg immediate release 15 mg PO Q8H PRN Breakthrough Pain 09/13/22 09/13/22 History tablet 1-6 nicotine 21 mg/24 hr daily 1 patch transdermal DAILY 09/13/22 09/13/22 History transdermal patch Patient History Medical History Bifascicular block Chronic back pain Chronic diastolic CHF (congestive heart failure) EF 63% 05/2021 echo Chronic kidney disease (CKD) COPD (chronic obstructive pulmonary disease) Degenerative disc disease Diabetes mellitus, type 2 IDDM Diverticular disease GERD (gastroesophageal reflux disease) History of acute pancreatitis RELATED TO A STONE OBSTRUCTION, 10/2017 History of basal cell carcinoma History of SCC (squamous cell carcinoma) of skin History of skin cancer S/P EXCISION OF SCALP Irritable bowel syndrome (IBS) Medical cannabis use Migraines Obesity On home oxygen therapy 3 lpm via n/c Polycythemia, secondary Post traumatic stress disorder Postlaminectomy syndrome of lumbosacral region Sleep apnea CPAP WITH 4 L/MIN HS. S/P UPPP. SOBOE (shortness of breath on exertion) Tachycardia Therapeutic opioid-induced constipation (OIC) Tinea pedis Transient ischemic attack (TIA) unsure of date - treated at [facility] -- 5+ years ago. Surgical History Fusion of spine MULTIPLE LUMBARX2 History of appendectomy History of back surgery total of 6 back surgeries. 2 failed surgeries History of cardiac cath 2017-NO STENTS History of cardiac cath 02/2022 with 1 stent (LAD) Dr Leach at [facility]. History of colonoscopy History of ERCP 11/2017 [facility] History of esophagogastroduodenoscopy (EGD) History of heart artery stent x1 stent (02/2022) History of repair of rotator cuff LEFT SHOULDER History of surgery RT ELBOW History of tonsillectomy History of uvulopalatopharyngoplasty FOR TREATMENT OF AR S/P cholecystectomy 07/02/1819 Grade 2 view, MAC 3, ETT 8. Family History Other COPD (chronic obstructive pulmonary disease) Cancer Diabetes Heart disease Hypertension Social History Smoking Status: Current every day smoker Tobacco Type: Cigarettes packs per day: 1; Cigarettes Per Day: 20; Second Hand Exposure: No; Do You Dip or Chew Tobacco: No; Tobacco Cessation Education Requested by Patient: No Hx Alcohol Use: No Hx Substance Use: Yes Last Used Substance: Days (ago) Last Used Substance Other:: FEW DAYS AGO Substance Use Type Other:: MEDICAL MARIJUANA Preferred Language: Greek Communication Ability: Effective Visual Impairment: No Limitations Train Planner Required: No Beliefs That Will Affect Care: None marital status: Current Living Situation: Alone Current Living Situation Comment: [facility] Other Information That Helps Us Care for You: No Feels Safe at Home: Yes Safety Concerns: Feels Safe At This Time Assistive Devices: Cane, CPAP and Glasses Assistive Devices Comment: ONLY HAS CPAP MASK HERE Physical Exam Physical Exam: GENERAL: This is a 61 year old male in no acute distress. Accompanied by his . Laying on a foam board with a cutout for lumbar spine. HEAD/FACE: Normocephalic and atraumatic. EYES: No drainage or conjunctival injection. ENT: Nose without bleeding or discharge. Oral mucosa moist. NECK: Full ROM without apparent pain. No swelling or masses noted. RESPIRATORY: Patient with unlabored breathing. No signs of respiratory distress. CHEST/AXILLA: Chest movement symmetrical. No deformities noted. BACK: Moves without difficulty SKIN: [place], warm and dry. No rash noted. MS/EXTREMITY: No swelling, no deformities. Moving extremities appropriately. NEURO: Alert and appears oriented. Speech is fluent. Cranial Nerves are grossly intact. PSYCH: Alert, anxious, aggitated.
[2022-09-14] MEDS ORDERED: NICOTINE 21 MG/24 HR TDSY TD SCH (09:00)
[2022-09-14] MEDS ORDERED: METOPROLOL SUCC 25MG EXT REL TAB PO SCH (09:00)
[2022-09-14] MEDS ORDERED: CLOPIDOGREL BISULFATE 75 MG TAB PO SCH (09:00)
[2022-09-14] MEDS ORDERED: NON-FORMULARY MEDICATION (Testosterone 20.25 mg/1.25 gram (1.62 %) gel in metered-dose pum TOP SCH (09:00)
[2022-09-14 09:07] LABS: Partial Thromboplastin Ratio 1.3
[2022-09-14 09:10] LABS: Calcium 8.8 mg/dl (8.6-10.3); Potassium 4.4 mmol/L (3.5-5.1)
[2022-09-14 09:13] LABS: Estimated Average Glucose 203 mg/dl; Hemoglobin A1C 8.7 % (4.5-5.6)
[2022-09-14 09:16] LABS: BUN Creatinine Ratio 16.1 (10-20); Chol HDL Ratio 4.7 (0-5); Creatinine Clr Calc Pharmacy 85.7 ml/min; Est GFR (African American) 82.9 ml/min; Est GFR (Non-African American) 71.5 ml/min
--- NOTE | 2022-09-14 09:16 | Pharmacy Report ---
Pharmacy Glycemic Short Note 2 - Date of Service September 14, 2022 - Glycemic Short BSG Results (Last 24 hours): 09/13/22 09/13/22 09/13/22 12:38 20:15 23:45 Glucose 221 H POC Glucose 240 H 182 H 09/14/22 07:04 Glucose POC Glucose 151 H OUTPATIENT ANTIDIABETIC REGIMEN: * Toujeo 80 units SC daily * Novolog 8-10 units SC w/ meals + sliding scale HbA1c: pending (09/14/22) ASSESSMENT: * DC is a 61 year old male who presented to ED on 09/13/22 with chest pain and dyspnea on exertion * UA - NSTEMI * NPO this morning for cardiac catheterization, now ordered a diet * Pertinent PMH includes CHF, CAD, HTN, dyslipidemia, chronic pain (requiring high doses of opioids), and T2DM * Home insulin regimen is quite basal heavy - will attempt to split basal/bolus more evenly while inpatient * Patient received 80 units of Toujeo yesterday prior to admission, only 5 units of Novolog given last evening * BSG this morning of 151 mg/dL, will plan on adding basal following cardiac cath * Will use scaled basal this evening to allow for dose up to ~weight-based stress of 3 PLAN FOR INPATIENT GLYCEMIC CONTROL: * Basal insulin * Lantus 25 units SC x 1 with lunch * Lantus 15-35 units SC HS (see EHR) * Bolus insulin * NovoLog per scale ACHS or Q6hrs while NPO * Goal Range: Low 110 mg/dL - High 140 mg/dL * Correction Factor: 20 mg/dL/unit * Nutritional / Prandial insulin per carb ratio of 1 unit per 5 grams CHO consumed
--- NOTE | 2022-09-14 09:52 | Cardiology Progress Note ---
Date of Service September 14, 2022 Assessment & Plan (1) Chest pain: (2) DELVALLE (dyspnea on exertion): (3) NSTEMI (non-ST elevated myocardial infarction): (4) Heart failure, diastolic, with acute decompensation: (5) Noncompliance: Plan Unstable angina, NSTEMI. For coronary angiography later today. Continue nitro, IV heparin, beta-judit, aspirin, clopidogrel, and statin. No retrial of ACEI/ARB yet. Right heart failure. Volume status: Normovolemic following administration of oral furosemide at home plus 20 mg IV furosemide last evening. Hypertension. BP under much better control. Will look to retry ARB post coronary angiography, following discontinuation of nitropaste. Low HDL cholesterol/dyslipidemia. Retry rosuvastatin at 2.5 mg/day. Future considerations: ezetimibe, PCSK9 inhibitor therapy. Conduction system disease with bifascicular block on EKG, right bundle-branch block, left anterior fascicular block. Telemetry: Sinus in the 80'-90's, with no significant arrhythmias, high degree AV block, or pauses. No current indication for permanent pacemaker implantation. Chronic obstructive sleep apnea. Continue nocturnal CPAP and O2 supplementation. Chronic tobacco use. Nicotine patch. Tobacco cessation not discussed today. Secondary polycythemia, routine phlebotomy (last week). Chronic narcotic dependence. Followed by Pain Management at [facility]. Reproducible chest wall discomfort. General measures advised. Admission and Anticipated Discharge Date Admission Date: September 13, 2022 Supervising Physician Co-Signing Physician Notes I have reviewed the advance practitioner documentation and agree. I saw and evaluated the patient on the date of service referenced in the note and have p erformed a medically appropriate history and or exam. Waiting for cath results today. Subjective Patient seen and examined. Chart, medications, and telemetry reviewed. at bedside. Rough night. Acute on chronic back pain, pain medication issues. Anxious. Notes improvement in chest pain following administration of Nitropaste (resultant headache) and after initiation of IV heparin ("It seemed like something opened up.") Ongoing reproducible chest pain. BP improved. Dyspnea and peripheral edema improved. Cotton mouth. Notes using a loner CPAP without water. Telemetry: Sinus in the 80s and 90s. High-sensitivity troponin: 93.4, 106.3, 121.5, 143.1 pg/mL. Resting echocardiography obtained prior to my evaluation, interpretation pending. Coronary angiography planned later today. Review of Systems Review of Systems: Complete Reivew of Systems is as stated above, negative, or noncontributory. Physical Exam Physical Exam: General: Obese male. No acute distress Head: Normocephalic. Atraumatic. Eyes: Conjunctiva are pink and non-injected, sclera clear Neck: No overt JVD Chest: Reproducible chest wall discomfort. Lungs: Diminished breath sounds. Clear. No wheeze. Cardiac Exam: - RRR, 86 bpm. No murmur. No rubs. Abdomen: +BS. Soft. No bruits. No obvious masses. Extremities: Minimal edema. No cyanosis. No clubbing. Pulses intact 2/4 Neuro: grossly normal exam Results & Data Vital Signs (Past 12 Hours) Vital Signs Temp Pulse Pulse Resp BP Pulse Ox O2 Del Method 09/14/22 07:09 36.8 C 91 H 19 125/48 L 93 Room Air 09/14/22 03:14 72 18 90 09/14/22 03:49 36.8 C 85 16 133/68 96 CPAP 09/14/22 00:58 84 09/13/22 23:55 36.8 C 86 16 135/71 96 CPAP 09/13/22 22:10 81 15 97 O2 Flow Rate 09/14/22 07:09 09/14/22 03:14 4 09/14/22 03:49 09/14/22 00:58 09/13/22 23:55 09/13/22 22:10 3 Laboratory Results Cardiac Enzymes 09/13/22 09/13/22 09/13/22 Range/Units 12:38 15:17 18:33 AST 15 (13-39) U/L Troponin I High Sens 93.4 H* 106.3 H* 121.5 H* (0-20) pg/ml 09/14/22 Range/Units 00:18 AST (13-39) U/L Troponin I High Sens 143.1 H* (0-20) pg/ml Coagulation 09/13/22 09/13/22 09/14/22 Range/Units 12:38 12:38 00:18 PT 10.0 (9.0-12.0) Seconds APTT 22.4 36.5 H (21.0-31.0) Seconds 09/14/22 Range/Units 08:23 PT (9.0-12.0) Seconds APTT 36.0 H (21.0-31.0) Seconds Lipids 09/14/22 Range/Units 08:23 Triglycerides 183 H (0-150) mg/dl Cholesterol 225 H (0-200) mg/dl HDL Cholesterol 48 mg/dl Cholesterol/HDL Ratio 4.7 (0-5) CBC 09/13/22 09/14/22 Range/Units 12:38 08:23 WBC 12.40 H 9.73 (4.8-10.8) K/ul RBC 5.87 5.83 (4.70-6.10) M/uL Hgb 13.4 L 13.2 L (14.0-18.0) g/dl Hct 44.4 43.8 (42.0-52.0) % Plt Count 281 284 (130-400) K/uL Neut # (Auto) 9.66 H (1.40-6.50) K/uL Lymph # (Auto) 1.52 (1.2-3.4) K/uL [place] # (Auto) 0.99 H (0.11-0.59) K/uL Eos # (Auto) 0.11 (0-0.50) K/uL Baso # (Auto) 0.05 (0-0.2) K/uL Comprehensive Metabolic Panel 09/13/22 09/14/22 Range/Units 12:38 08:23 Sodium 135 L 138 (136-145) mmol/L Potassium 4.3 4.4 (3.5-5.1) mmol/L Chloride 102 103 (98-107) mmol/L Carbon Dioxide 28 31 (21-32) mmol/L BUN 16 18 (6-23) mg/dl Creatinine 0.99 1.12 (0.6-1.4) mg/dl Glucose 221 H 164 H (70-99(Fasting)) mg/dl Calcium 9.1 8.8 (8.6-10.3) mg/dl AST 15 (13-39) U/L ALT 15 (7-52) U/L Alkaline Phosphatase 70 (34-104) U/L Total Protein 6.3 (6.0-8.3) gm/dl Albumin 3.5 (3.4-5.0) gm/dl Intake and Output 09/13/22 09/14/22 09/14/22 22:59 06:59 14:59 Intake Total 240 / 686.45 346.45 / 686.45 189.75 / 189.75 Output Total 1125 / 1325 200 / 1325 Balance -885 / -638.55 146.45 / -638.55 189.75 / 189.75 Intake: IV 346.45 / 446.45 189.75 / 189.75 Acetaminophen 1,000 mg In 100 100 / 100 ml @ 400 mls/hr IV [facility] Rx#: [id number] Heparin Sodium/Dextrose 25,000 246.45 / 246.45 189.75 / 189.75 units In 500 ml @ 1,550 UNITS/ HR 31 mls/hr IV .[id number] [facility] Rx# :[id number] Oral 240 / 240 Output: Urine 1125 / 1325 200 / 1325 Other: # Unmeasured Voids 550 Weight 114.033 kg Weight Measurement Method Built in [facility]
[2022-09-14] MEDS ORDERED: NITROGLYCERIN/D5W 100MCG/ML 20ML SYR ONE (09:57)
[2022-09-14] MEDS ORDERED: fentaNYL citrate PF 100 MCG/2 ML VIAL ONE (09:57)
[2022-09-14] MEDS ORDERED: niCARdipine HCL INJ 2.5 MG/ML 10 ML AMP ONE (09:57)
[2022-09-14] MEDS ORDERED: HEPARIN (PORCINE) 1000 UNIT/ML 10 ML (CATH LAB USE ONLY) ONE (09:57)
[2022-09-14] MEDS ORDERED: MIDAZOLAM HCL 1 MG/ML 2ML VIAL ONE ×2 (09:57→10:49)
[2022-09-14] MEDS ORDERED: ASPIRIN 81 MG CHEW ONE (10:07)
[2022-09-14] MEDS ORDERED: diphenhydrAMINE 50 MG/ML VIAL ONE (10:52)
--- NOTE | 2022-09-14 11:05 | Pre Anesthesia Assessment ---
Date of Service September 14, 2022 Pre Sedation Assessment Vital Signs Temp Pulse Pulse Pulse Resp BP BP 09/14/22 10:15 74 18 170/62 H 09/14/22 07:09 36.8 C 91 H 19 125/48 L 09/14/22 03:14 72 18 09/14/22 03:49 36.8 C 85 16 133/68 09/14/22 00:58 84 09/13/22 23:55 36.8 C 86 16 135/71 09/13/22 17:27 09/13/22 22:10 81 15 09/13/22 20:00 09/13/22 20:00 09/13/22 19:47 36.8 C 89 18 123/70 09/13/22 18:25 09/13/22 18:25 36.8 C 96 H 20 175/85 H 09/13/22 17:00 82 27 H 09/13/22 17:00 131/68 09/13/22 16:31 132/62 09/13/22 16:31 87 24 09/13/22 16:30 88 13 09/13/22 16:00 93 H 13 09/13/22 16:00 187/86 H 09/13/22 16:20 88 09/13/22 15:30 93 H 18 09/13/22 15:30 161/82 H 09/13/22 15:00 87 15 09/13/22 15:00 161/70 H 09/13/22 14:30 88 17 09/13/22 14:30 153/71 H 09/13/22 14:00 88 19 09/13/22 14:00 141/67 H 09/13/22 13:30 90 16 09/13/22 13:30 142/58 H 09/13/22 13:00 93 H 14 09/13/22 13:00 145/67 H 09/13/22 12:30 97 H 20 09/13/22 12:30 171/85 H 09/13/22 12:24 95 H 15 09/13/22 12:25 92 H 09/13/22 12:07 98 H 19 173/81 H 09/13/22 11:43 36.0 C L 96 H 20 187/76 H Pulse Ox Pulse Ox O2 Del Method O2 Del Method O2 Flow Rate 09/14/22 10:15 98 Room Air 09/14/22 07:09 93 Room Air 09/14/22 03:14 90 4 09/14/22 03:49 96 CPAP 09/14/22 00:58 09/13/22 23:55 96 CPAP 09/13/22 17:27 92 09/13/22 22:10 97 3 09/13/22 20:00 Room Air 09/13/22 20:00 92 Room Air 09/13/22 19:47 93 Room Air 09/13/22 18:25 Room Air 09/13/22 18:25 96 Room Air 09/13/22 17:00 93 Room Air 09/13/22 17:00 09/13/22 16:31 09/13/22 16:31 93 09/13/22 16:30 93 09/13/22 16:00 09/13/22 16:00 09/13/22 16:20 09/13/22 15:30 97 Room Air 09/13/22 15:30 09/13/22 15:00 97 Nasal Cannula 2 09/13/22 15:00 09/13/22 14:30 97 09/13/22 14:30 09/13/22 14:00 96 09/13/22 14:00 09/13/22 13:30 95 Nasal Cannula 2 09/13/22 13:30 09/13/22 13:00 95 09/13/22 13:00 09/13/22 12:30 09/13/22 12:30 09/13/22 12:24 09/13/22 12:25 09/13/22 12:07 95 Room Air 09/13/22 11:43 97 Room Air Cardiovascular RRR, no murmur, no edema Respiratory normal respiratory effort, lungs clear to auscultation Pre-Sedation Airway Assessment Smoking Status: Current every day smoker Hx Sleep Apnea: No Short, Thick Neck: No Thyromental Distance: > or= 3.5 Finger Breadths Oral Cavity: + WNL Mallampati Class: III ASA: ASA3 NPO Status Date of Last Intake of Fluids: 09/14/22 Time of Last Intake of Fluids: 07:00 Date of Last Intake of Solid Food: 09/13/22 Time of Last Intake of Solid Foods: 23:00 Notes The planned sedation has been discussed with the patient. Informed Consent was obtained. I have identified the patient, determined the appropriateness of sedation and have assessed the patient immediately prior to the procedure. All medicine(s) and interventions are by my order. [facility] Procedure Codes (Charges) Indication for Procedure Indication for procedure: NSTEMI
--- NOTE | 2022-09-14 11:07 | Post Anesthesia Assessment ---
Date of Service September 14, 2022 Post Sedation Assessment Vital Signs Temp Pulse Pulse Pulse Resp BP BP 09/14/22 10:15 74 18 170/62 H 09/14/22 07:09 36.8 C 91 H 19 125/48 L 09/14/22 03:14 72 18 09/14/22 03:49 36.8 C 85 16 133/68 09/14/22 00:58 84 09/13/22 23:55 36.8 C 86 16 135/71 09/13/22 17:27 09/13/22 22:10 81 15 09/13/22 20:00 09/13/22 20:00 09/13/22 19:47 36.8 C 89 18 123/70 09/13/22 18:25 09/13/22 18:25 36.8 C 96 H 20 175/85 H 09/13/22 17:00 82 27 H 09/13/22 17:00 131/68 09/13/22 16:31 132/62 09/13/22 16:31 87 24 09/13/22 16:30 88 13 09/13/22 16:00 93 H 13 09/13/22 16:00 187/86 H 09/13/22 16:20 88 09/13/22 15:30 93 H 18 09/13/22 15:30 161/82 H 09/13/22 15:00 87 15 09/13/22 15:00 161/70 H 09/13/22 14:30 88 17 09/13/22 14:30 153/71 H 09/13/22 14:00 88 19 09/13/22 14:00 141/67 H 09/13/22 13:30 90 16 09/13/22 13:30 142/58 H 09/13/22 13:00 93 H 14 09/13/22 13:00 145/67 H 09/13/22 12:30 97 H 20 09/13/22 12:30 171/85 H 09/13/22 12:24 95 H 15 09/13/22 12:25 92 H 09/13/22 12:07 98 H 19 173/81 H 09/13/22 11:43 36.0 C L 96 H 20 187/76 H Pulse Ox Pulse Ox O2 Del Method O2 Del Method O2 Flow Rate 09/14/22 10:15 98 Room Air 09/14/22 07:09 93 Room Air 09/14/22 03:14 90 4 09/14/22 03:49 96 CPAP 09/14/22 00:58 09/13/22 23:55 96 CPAP 09/13/22 17:27 92 09/13/22 22:10 97 3 09/13/22 20:00 Room Air 09/13/22 20:00 92 Room Air 09/13/22 19:47 93 Room Air 09/13/22 18:25 Room Air 09/13/22 18:25 96 Room Air 09/13/22 17:00 93 Room Air 09/13/22 17:00 09/13/22 16:31 09/13/22 16:31 93 09/13/22 16:30 93 09/13/22 16:00 09/13/22 16:00 09/13/22 16:20 09/13/22 15:30 97 Room Air 09/13/22 15:30 09/13/22 15:00 97 Nasal Cannula 2 09/13/22 15:00 09/13/22 14:30 97 09/13/22 14:30 09/13/22 14:00 96 09/13/22 14:00 09/13/22 13:30 95 Nasal Cannula 2 09/13/22 13:30 09/13/22 13:00 95 09/13/22 13:00 09/13/22 12:30 09/13/22 12:30 09/13/22 12:24 09/13/22 12:25 09/13/22 12:07 95 Room Air 09/13/22 11:43 97 Room Air Recovery Score Activity: Moves 4 extremities Respiration: Deep Breath/Cough Circulation: +/-20% PreAnes Value Consciousness: Fully Awake Oxygen Saturation: > 92% On Room Air Discharge Sedation Level of Care: Fast Track Phase II Post Sedation Plan On clinical assessment, the patient appears to have tolerated the sedation without complications. Patient is recovering as anticipated. Patient will continue to be monitored by nursing and may be discharged when sedation discharge criteria are met per below protocol. Upon Completions of procedure up to 15 minutes continue every 5 minute vital signs and the P.A.R. score; then discharge to a Phase I or Fast Track to Phase II per the following guidelines: * Discharge Patient to appropriate Phase II area if PAR is 8 or greater or return to pre- procedure baseline. The post - procedure orders will be as directed. * If PAR score is less than 8 or not return to pre-procedure baseline then patient will follow Phase I monitoring till PAR is reached for Phase II. The Phase I may be done in procedure room or may call to secure a Phase I area. * If naloxone or flumazenil are used for reversal, hold in Phase I for continued monitoring from when last reversal dose was given for a minimum of 60 minutes or longer pending the nurse and/or physician discretion of patient condition before discharge to Phase II. Please call the Sedation Physician to re-evaluate and complete post-note for discharge to Phase II area. Do NOT discharge from procedure sedation or Phase 1 until post- sedation evaluation note is complete by procedure /sedation MD Sedation Discharge Instructions to be given to the patient at discharge to home. [facility] Procedure Codes (Charges) Indication for Procedure Indication for procedure: NSTEMI hx of CAD/PCI Sedation/Anesthesia Procedure 1: Sedation/Anesthesia: 34699 Mod Sedation by the same physician;Init15 Min Child Age 5 & Up (start 1052, end 1101) Total Sedation Time (minutes): 9
[2022-09-14] MEDS ORDERED: Nursing to Pharmacy Communication SCH (12:00)
[2022-09-14] MEDS ORDERED: LANTUS PER UNIT CHARGE SC ONE ×2 (12:00→21:00)
[2022-09-14] MEDS ORDERED: MoRPHine SULFATE IR 15 MG TAB (IMMEDIATE RELEASE) PO PRN (12:30)
[2022-09-14] MEDS ORDERED: SODIUM CHLORIDE 0.9% 1000ML 1,000 ML IV SCH ×2 (14:30)
[2022-09-14] MEDS ORDERED: OPTIRAY 320 500ml IV ONE (15:30)
--- NOTE | 2022-09-14 15:57 | CT Scan Report ---
CHEST CTA for PULMONARY ARTERIES CT DOSE: 904.64 mGy.cm HISTORY: Chest pain status post cardiac catheterization. TECHNIQUE: Multiaxial CT images of the chest were performed following the intravenous administration of contrast to evaluate the pulmonary arteries. Maximal intensity projection images were also obtaine d. A dose lowering technique was utilized adhering to the principles of ALARA. COMPARISON STUDY: Chest CTA 03/17/2022. FINDINGS: Limited views of the upper abdomen demonstrate normal liver, spleen, and adrenal glands. Th e thyroid gland enhances normally. Normal caliber esophagus. The heart is top normal in size. No pleu ral or pericardial effusions. Subcentimeter mediastinal and hilar lymph nodes do not meet CT criteria for pathologic involvement. Normal caliber thoracic aorta with no evidence for a dissection. No fill ing defects within the pulmonary arteries to suggest a pulmonary embolus. No acute fractures identifi ed. No pneumothorax. The central airways are patent. Groundglass densities within the lungs posterior ly favor dependent change. Otherwise, no focal lung consolidations to suggest a pneumonia. Mild inter stitial thickening within the lower lobes remains unchanged. This is likely chronic. A few tiny micro nodules within the lingula which remain stable. These are likely benign and measure up to 2 mm. No ne w or suspicious pulmonary nodules identified. IMPRESSION: 1. No evidence for pulmonary embolus. 2. No focal lung consolidations to suggest a pneumonia. ACT 112: Negative or not required by law. Electronically signed by: Aubrey Cee M.D. 09/14/2022 3:55 PM
--- NOTE | 2022-09-14 16:38 | Cardiac Catheterization ---
[facility] Data: [employer] Cardiac Status Clinical evaluation leading to the procedure CAD Presenation: Non STEMI Anginal Classification: CCS III Heart Failure: Yes Cardiogenic Shock within 24 Hours: No Cardiac Arrest within 24 Hours: No Imaging Studies Past 6 Months: No Stress Studies Past 6 Months: No STEMI OR Non-STEMI Symptom Onset Date: 09/13/22 Coronary Anatomy Dominant: Left Left Main (% Stenosis): Normal LAD (% Stenosis): Ostial (30%), Proximal (20% in-stent restenosis) and Mid D1 (% Stenosis): Normal D2 (% Stenosis): Normal Circumflex (% Stenosis): Normal OM1 (% Stenosis): Normal (Up to 30 to 40%) OM2 (% Stenosis): Normal L PL1 (% Stenosis): Proximal (40 to 50%) L PDA (% Stenosis): Normal RCA (% Stenosis): Normal Diagnostic Physicians Name: Joseph Leach MD, PhD Closure Device Percutaneous Entry Location: Radial Closure Device: Radial Band Recommendations: Medical Therapy and/or Counseling Cardiac Cath Procedure Full Procedure Date September 14, 2022 Pre-Procedure Diagnosis Pre-Procedure Diagnosis: Non STEMI AUC Score AUC Score: 07 Post-Procedure Diagnosis Post-Procedure Diagnosis: Mild CAD Procedure(s) Performed Procedure(s) Performed: Coronary Angiography Division Human Resources Manager Joseph Leach MD, PhD Estimated Blood Loss Estimated Blood Loss: 5 ml Medication(s) Medication(s): Diphenhydramine, Fentanyl, Heparin, Lidocaine 1%, Nicardipine, Nitroglycerin and Versed Summary of Findings Brief description: Patient was brought to the cardiac catheterization suite where he was shaved and prepped in a sterile fashion. Sedated using IV Versed and fentanyl. Soft tis sues of the right wrist were anesthetized using 2 mils of 1% Xylocaine. The right radial artery was accessed using a modified Seldinger technique and the 6 [place] radial artery glide sheath was placed. Patient was provided anticoagulation with IV heparin and antispasmodics including nicardipine and nitroglycerin. All catheters were advanced and exchanged over a 0.035 J-tip wire. Left coronary angiography performed in orthogonal views with a 5 [place] 4 diagnostic catheter. Right coronary angiography in orthogonal views with a 5 [place] [employer] 4 diagnostic catheter. Diagnostic catheters were removed. Radial artery sheath was removed. Hemostasis was obtained using the TR band. Patient was hemodynamically stable and asymptomatic. He was returned to the recovery area. This ended the case. Coronary angiography findings: LMT: Large caliber bifurcating into LAD and circumflex. Mild luminal irregularities. LAD: Large caliber and transapical. There is an ostial 30% stenosis then a proximal stent which has up to 20% in-stent restenosis. The mid and distal LAD have only mild scattered disease. LAD provides a large first diagonal and a medium second diagonal. Each of these vessels have no angiographically significant disease. LCx: Large caliber and dominant vessel. Travels in the AV groove where the proximal segment has mild luminal irregularities. It gives a large OM1 which has proximal mild disease with maximum stenosis of 30 to 40%. The mid AV groove vessel has mild luminal irregularities and gives rise to an atrial branch and a small OM 2. The distal vessel has no significant disease and provides a large branching posterolateral. This has proximal 40 to 50% stenosis and mild luminal irregularities. The circumflex and terminates as a large caliber PDA with mild luminal irregularities. RCA: Small and nondominant without significant disease. Summary: 1. Patent prior stent with mild in-stent restenosis 2. Mild nonocclusive residual disease as described 3. Continue medical therapy for secondary prevention of coronary disease. Continue dual antiplatelet therapy to complete 1 to 2 years beginning in February 2022. Hemodynamics Rest Ao:: 146/84 mmHg Final Ao: 138/92 mmHg LV: Not performed Recommendations Recommendations: Medical Therapy and/or Counseling Radiation Exposure (mGy) 931 mGy Contrast (mls) 70 mL Anesthesia 2 mg IV Versed, 50 mcg IV fentanyl, 25 mg IV Benadryl Procedural Complication(s) None Disposition Recovery Room\PACU I attest to the content of the Intraoperative Record and any orders documented therein. Any exceptions are noted below. [facility] Card Cath Procedure Codes Cardiac Catheterization Procedure 1: Cardiovascular Cath Procedures: 43167 Coronaries Moderate Sedation Procedure 1: Sedation/Anesthesia: 23586 Mod Sedation by the same physician;Init15 Min Child Age 5 & Up (Initial 15 min, start 1052, end 1101) PG Care Time/CCT Total # of Minutes Spent Total Time Spent with Patient: Total time spent is greater than 50% in coordination of care (as documented) at patient's floor/unit and/or counseling patient:
--- NOTE | 2022-09-14 20:18 | Discharge Summary ---
Date of Service September 14, 2022 Admission HPI Per Admitting Provider This is a 61-year-old male with PMH of CAD s/p PCI of proximal LAD in Feb 2022 with cath also showing residual disease, type 2 diabetes, chronic diastolic congestive heart failure, hypertension, bifascicular bundle branch block, ongoing tobacco use, COPD, AR on CPAP, asthma, BPH, history of medication non- compliance and other medical problems listed below who presents with exertional chest pain. Has had progressive exertional dyspnea over the past week or 2 with associated fatigue. Yesterday, notes 5 separate episodes of significant chest pressure described as central to chest with radiation to left arm with as sociated diaphoresis, shortness of breath and feelings of presyncope while [place]. Took 4-5 sublingual nitroglycerin tabs throughout the course of the afternoon and use supplemental oxygen with improvement. States as long as he sat still, pain did not recur but throughout the evening and even into this morning, with any type of movement, pain and dyspnea recur. Patient with history of PCI to LAD in February 2022 and cardiac cath shows residual disease in left circumflex. Is usually on aspirin and Plavix but reportedly has not been taking recently due to a urological procedure despite recommendation that he continue those medications. No longer taking his statin because he feels cholesterol is well controlled. Takes metoprolol only when he "feels his heart racing". Reduced lasix dose to 20mg daily (prescribed to take 40mg po BID) due to it worsening issues with gastroparesis. Follows with Dr. Johnson and CESILIA Fulton in cardiology clinic. Currently endorsing a 1/10 ache in central chest but otherwise comfortable at rest. Denies fever, chills, lightheadedness, shortness of breath, nausea, vomiting, abdominal pain, dysuria, diarrhea or constipation. Of note, patient also with significant history of chronic pain syndrome secondary to back pain with history of multiple surgeries. Is on a high-dose opiate regimen and has been for approximately 20 years, per patient. Also has secondary polycythemia as a result of chronic narcotic use for which he is treated with phlebotomy approximately every 3 weeks. Admission Exam Per Admitting Provider General Appearance:WD/WN, vitals as above, NAD, appears ill, flushed, obese, pleasant Head: normocephalic, atraumatic Eyes:normal inspection, PERRL, conjunctivae normal, anicteric sclerae ENT: external ear and nose normal, oropharynx normal Neck: normal visual inspection, trachea midline, no thyromegaly Respiratory:normal respiratory effort, decreased breath sounds bilaterally, no wheeze, rales or rhonchi. No accessory muscle use Cardiovascular: regular rate, rhythm, no murmur appreciated, normal peripheral pulses, 1+ BLE edema. Vessels: difficult to assess JVD given habitus Chest: normal inspection of chest Abdomen/GI: normal bowel sounds, soft, nontender, no hepatosplenomegaly Extremities/Musculoskeletal: no cyanosis or clubbing, extremities motor strength 5/5 Neurologic: PERRL, EOMI, accommodation nl, no face palsy, no dysarthria, CN's II-XI intact bilaterally and moves all extremities Psychiatric:A+Ox3, euthymic affect Skin: no rashes, normal color, warm/dry Principal Diagnosis Noncardiac chest pain Discharge Exam General: Morbidly obese, sitting comfortably in bed, not in distress, on room air HEENT: EOMI, DULCE MARIA, MMM Chest: Clear breath sounds bilaterally, no wheezes or crackles CVS: Regular rate and rhythm, normal heart sounds, no murmur Abdomen: Soft, non tender, not distended, normal bowel sounds Neuro: Awake, alert, oriented, conversing well, non focal Extremities: No cyanosis, clubbing, trace LE edema Discharge Data Allergies Allergy/AdvReac Type Severity Reaction Status Date / Time clarithromycin Allergy Severe DAMAGED Verified 09/09/22 11:54 LIVER PER PT-REQUIRED HOSPITALIZATION latex Allergy Intermediate skin Verified 09/09/22 11:54 irritation/rash adhesive AdvReac Mild SKIN Verified 09/09/22 11:54 RASH-WITH SOME TAPES Uncoded Nonscreenable Allergy Intermediate PLASTICS: Uncoded 09/09/22 11:54 Allergen BLISTERS GLP-1RA AdvReac Unknown Hx of Uncoded 09/09/22 11:54 Pancreatitis Consultations 09/13/22 14:04 ED Decision to Admit Stat 09/13/22 14:14 Consult Cardiology Routine 09/13/22 15:30 Consult Pain Management Routine Procedures Performed Operation Date: 09/14/22 12:30 Actual Procedures p Cath, Coronaries ONLY (no LV) - Joseph Leach MD, PhD s Cineradiography w/Routine Exam - Joseph Leach MD, PhD Ordered Studies 09/14/22 06:34 CL Cath Imgs for PACS use only Routine 09/14/22 14:21 CT for pulmonary embolism PE [CT angio chest PE protocol] Routine Laboratory Results WBC 9.73 K/ul (4.8-10.8) 09/14/22 08:23 RBC 5.83 M/uL (4.70-6.10) 09/14/22 08:23 Hgb 13.2 g/dl (14.0-18.0) L 09/14/22 08:23 Hct 43.8 % (42.0-52.0) 09/14/22 08: MCV 75.1 fL (80.0-100.0) L 09/14/22 08: MCH 22.6 pg (25.0-34.0) L 09/14/22 08: MCHC 30.1 g/dL (32.0-36.0) L 09/14/22 08: RDW Std Deviation 51.4 fL (36.4-46.3) H 09/14/22 08:23 RDW Coeff of Ben 19.9 % (11.5-14.5) H 09/14/22 08:23 Plt Count 284 K/uL (130-400) 09/14/22 08:23 MPV 8.8 fL (9.4-12.4) L 09/14/22 08:23 Immature Gran % (Auto) 0.6 % 09/13/22 12:38 Neut % (Auto) 77.8 % 09/13/22 12:38 Lymph % (Auto) 12.3 % 09/13/22 12:38 Nelson % (Auto) 8.0 % 09/13/22 12:38 Eos % (Auto) 0.9 % 09/13/22 12:38 Baso % (Auto) 0.4 % 09/13/22 12:38 Neut # (Auto) 9.66 K/uL (1.40-6.50) H 09/13/22 12:38 Lymph # (Auto) 1.52 K/uL (1.2-3.4) 09/13/22 12:38 Nelson # (Auto) 0.99 K/uL (0.11-0.59) H 09/13/22 12:38 Eos # (Auto) 0.11 K/uL (0-0.50) 09/13/22 12:38 Baso # (Auto) 0.05 K/uL (0-0.2) 09/13/22 12:38 Immature Gran # (Auto) 0.07 K/uL (0.01-0.20) 09/13/22 12:38 PT 10.0 Seconds (9.0-12.0) 09/13/22 12:38 INR 0.9 (0.9-1.1) 09/13/22 12:38 APTT 36.0 Seconds (21.0-31.0) H 09/14/22 08:23 PTT Ratio 1.3 09/14/22 08:23 Sodium 138 mmol/L (136-145) 09/14/22 08:23 Potassium 4.4 mmol/L (3.5-5.1) 09/14/22 08:23 Chloride 103 mmol/L (98-107) 09/14/22 08:23 Carbon Dioxide 31 mmol/L (21-32) 09/14/22 08:23 Anion Gap 4 (3-11) 09/14/22 08:23 BUN 18 mg/dl (6-23) 09/14/22 08:23 Creatinine 1.12 mg/dl (0.6-1.4) 09/14/22 08:23 Est Cr Clr Drug Dosing 85.7 ml/min 09/14/22 08:23 Est GFR ( Amer) 82.9 ml/min 09/14/22 08:23 Est GFR (Non-Af Amer) 71.5 ml/min 09/14/22 08:23 BUN/Creatinine Ratio 16.1 (10-20) 09/14/22 08:23 Glucose 164 mg/dl (70-99(Fasting)) H 09/14/22 08:23 POC Glucose 160 mg/dl (70-99) H 09/14/22 16:30 Estimat Average Glucose 203 mg/dl 09/14/22 08:23 Hemoglobin A1c 8.7 % (4.5-5.6) H 09/14/22 08:23 Calcium 8.8 mg/dl (8.6-10.3) 09/14/22 08:23 Magnesium 2.0 mg/dl (1.7-2.4) 09/13/22 12:38 Total Bilirubin 0.3 mg/dl (0.2-1.0) 09/13/22 12:38 AST 15 U/L (13-39) 09/13/22 12:38 ALT 15 U/L (7-52) 09/13/22 12:38 Alkaline Phosphatase 70 U/L (34-104) 09/13/22 12:38 Troponin I High Sens 143.1 pg/ml (0-20) H* 09/14/22 00:18 Total Protein 6.3 gm/dl (6.0-8.3) 09/13/22 12:38 Albumin 3.5 gm/dl (3.4-5.0) 09/13/22 12:38 Globulin 2.8 gm/dl (2.5-4.0) 09/13/22 12:38 Albumin/Globulin Ratio 1.3 (0.9-2) 09/13/22 12:38 Triglycerides 183 mg/dl (0-150) H 09/14/22 08:23 Cholesterol 225 mg/dl (0-200) H 09/14/22 08:23 LDL Cholesterol, Calc 140 mg/dl 09/14/22 08:23 VLDL Cholesterol, Calc 37 mg/dl (0-30) H 09/14/22 08:23 HDL Cholesterol 48 mg/dl 09/14/22 08:23 Cholesterol/HDL Ratio 4.7 (0-5) 09/14/22 08:23 Lipase 19 U/L (11-82) 09/13/22 12:38 TSH 1.534 uIu/ml (0.300-4.500) 09/13/22 12:38 SARS-CoV-2, RNA, NAAT NEGATIVE (NEGATIVE) 09/13/22 14:24 Impressions Chest X-Ray 09/13/22 12:16 XR chest 1V portable HISTORY: Atypical chest pain. COMPARISON: Chest 05/04/2022. FINDINGS: No pneumothorax. No pleural effusions. The cardiac silhouette is normal in size. This progressive interstitial/vascular thickening. Otherwise, no new focal lung consolidations identified. IMPRESSION: Progressive interstitial/vascular thickening. This suggests mild congestive change. ACT 112: Negative or not required by law. Electronically signed by: Aubrey Cee M.D. 09/13/2022 1:19 PM Chest CTA 09/14/22 14:21 CHEST CTA for PULMONARY ARTERIES CT DOSE: 904.64 mGy.cm HISTORY: Chest pain status post cardiac catheterization. TECHNIQUE: Multiaxial CT images of the chest were performed following the intravenous administration of contrast to evaluate the pulmonary arteries. Maximal intensity projection images were also obtained. A dose lowering technique was utilized adhering to the principles of ALARA. COMPARISON STUDY: Chest CTA 03/17/2022. FINDINGS: Limited views of the upper abdomen demonstrate normal liver, spleen, and adrenal glands. The thyroid gland enhances normally. Normal caliber esophagus. The heart is top normal in size. No pleural or pericardial effusions. Subcentimeter mediastinal and hilar lymph nodes do not meet CT criteria for pathologic involvement. Normal caliber thoracic aorta with no evidence for a dissection. No filling defects within the pulmonary arteries to suggest a pulmonary embolus. No acute fractures identified. No pneumothorax. The central airways are patent. Groundglass densities within the lungs posteriorly favor dependent change. Otherwise, no focal lung consolidations to suggest a pneumonia. Mild interstitial thickening within the lower lobes remains unchanged. This is likely chronic. A few tiny micronodules within the lingula which remain stable. These are likely benign and measure up to 2 mm. No new or suspicious pulmonary nodules identified. IMPRESSION: 1. No evidence for pulmonary embolus. 2. No focal lung consolidations to suggest a pneumonia. ACT 112: Negative or not required by law. Electronically signed by: Aubrey Cee M.D. 09/14/2022 3:55 PM Hospital Course (1) Chest pain: (2) Noncompliance: (3) COPD (chronic obstructive pulmonary disease): (4) BPH (benign prostatic hyperplasia): (5) Obstructive sleep apnea: (6) Hypertension: (7) CAD (coronary artery disease): (8) Opioid dependence: Plan This is a 61-year-old male with PMH of CAD s/p PCI of proximal LAD in Feb 2022 with cath also showing residual disease, type 2 diabetes, chronic diastolic congestive heart failure, hypertension, bifascicular bundle branch block, ongoing tobacco use, COPD, AR on CPAP, asthma, BPH, history of medication non- compliance and other medical problems listed below who presents with exertional chest pain. He was admitted with concern of NSTEMI due to CP and elevated troponin. He underwent cardiac cath which showed patent prior stent with mild in-stent restenosis and mild nonocclusive residual disease and recommended continued medical therapy (details of the cath findings below). Discussed with cardiology who did not feel his chest pain is cardiac and did not have any new recommendations other than compliance with his DAPT medications given his stents in Feb 2022. His echo was unremarkable. CTA chest was done which ruled out PE or PNA or other lung pathologies. There was no evidence of CHF by echo or CT or physical examination. His chest pain was attributed non cardiac, likely MSK or possibly aggravated by his anxiety or may be GERD related, however patient declines it related to his anxiety or GERD. Trial of NSAIDs was not entertained as he is already on DAPT and might increase risk for PUD or bleeding. Recommended tums or carafate or peptobismol but patient stated he does not tolerated it well. If continues to have chest pain with exertion, he may benefit from trial of Imdur but he already has appointment with cardiology next week. Hospital stay was stressful to the patient as he was not able to get his morphine dosing similar to how he takes at home. Recommended overnight observation however he would like to go home. Discussed discharge plan in detail. He has upcoming appointment with cardiology next week. He gets his pain medications for pain management. He is comfortable and stable for discharge home. Coronary angiography findings: LMT:Large caliber bifurcating into LAD and circumflex. Mild luminal irregularities. LAD:Large caliber and transapical. There is an ostial 30% stenosis then a proximal stent which has up to 20% in-stent restenosis. The mid and distal LAD have only mild scattered disease. LAD provides a large first diagonal and a medium second diagonal. Each of these vessels have no angiographically significant disease. LCx:Large caliber and dominant vessel. Travels in the AV groove where the proximal segment has mild luminal irregularities. It gives a large OM1 which has proximal mild disease with maximum stenosis of 30 to 40%. The mid AV groove vessel has mild luminal irregularities and gives rise to an atrial branch and a small OM 2. The distal vessel has no significant disease and provides a large branching posterolateral. This has proximal 40 to 50% stenosis and mild luminal irregularities. The circumflex and terminates as a large caliber PDA with mild luminal irregularities. RCA:Small and nondominant without significant disease. Summary: 1. Patent prior stent with mild in-stent restenosis 2. Mild nonocclusive residual disease as described 3. Continue medical therapy for secondary prevention of coronary disease. Continue dual antiplatelet therapy to complete 1 to 2 years beginning in February 2022. Recommendations Recommendations: Medical Therapy and/or Counseling Total Time Total Time Spent Total Time Spent (In Minutes): 55 Discharge Plan Discharge Items Patient Disposition: Home - Self-Care Reason For Visit: NSTEMI Discharge Diagnosis: Chest pain, non cardiac Activity: Resume your previous activity Non-emergency contact: Primary Care Provider and Quill Machine Operator Call non-emergency contact if: you have any medication questions, your symptoms worsen and your pain is concerning for you Follow-up/Referrals: Oswaldo Sampson MD [Primary Care Provider] - (Date & Time 09/20/2022 2:00 PM Provider Liza Koch MD Department [facility] ) Diet: Carb Consistent or DM2 and Heart Healthy Addtl Attending Provider Instructions: Your heart cath and CT chest looks good. Your chest pain is not from the heart or the lungs. Continue your medications as prescribed Follow up with your family doctor If recurrent chest pain, please call your doctor or come back to the emergency. Pending Studies at Discharge: No Stand-Alone Forms: [facility], Smoking Cessation Medications and DC Order Prescriptions: Continued clopidogrel 75 mg tablet 75 mg PO QAM testosterone 20.25 mg/1.25 gram (1.62 %) gel in metered-dose pump 2 pump topical DAILY Qty: 225 0RF Rx Instructions: apply 1 pump amount over max area of EACH upper arm and shoulder PDMP queried okay to fill insulin aspart U-100 [Novolog FlexPen U-100 Insulin] 100 unit/mL (3 mL) insulin pen 100 unit SQ .COMPLEX Qty: 90 1RF Rx Instructions: per sliding scale with meals; TDD 100 units (DME) blood sugar diagnostic Strip See Rx Instructions .ROUTE .MEDSUPPLY Qty: 900 3RF Rx Instructions: test 10 times QD. OneTouch Ultra (DME) Oxygen Home Liters Per Minute See Rx Instructions .ROUTE .MEDSUPPLY Qty: 1 Rx Instructions: 4 LPM at night with CPAP morphine 30 mg tablet extended release 30 mg PO Q8H PRN (Reason: breakthrough pain 6-10) Rx Instructions: Per pt he takes 3 times daily. Depends on his day how he takes it. Typically more into the night. Linzess 145 mcg capsule 145 mcg PO DAILY PRN (Reason: Constipation) (DME) blood-glucose meter [OneTouch Verio Flex meter] Misc See Rx Instructions .ROUTE .MEDSUPPLY Rx Instructions: Test blood sugars 2 times a day morphine 100 mg tablet extended release 100 mg PO TID@08,14,20 Rx Instructions: last dose at 8AM this morning 09/13/22 around 2-3 and 8 at night. (DME) Dexcom G6 Sensor Device See Rx Instructions .Route Rx Instructions: As directed (DME) Dexcom G6 Arc Furnace Operator Misc See Rx Instructions .Route Rx Instructions: As directed (DME) Dexcom G6 Transmitter Device See Rx Instructions .Route Rx Instructions: As directed aspirin 81 mg Tablet,Delayed Release (Dr/Ec) 81 mg PO HS nitroglycerin [Nitrostat] 0.4 mg Tablet, Sublingual 1 tab Sublingual UD PRN (Reason: CHESTPAIN) montelukast 10 mg Tablet 10 mg PO HS Rx Instructions: hasn't been taking albuterol sulfate 90 mcg/actuation Hfa Aerosol Inhaler 2 puff INHALATION Q6H PRN (Reason: Wheezing) pantoprazole 40 mg tablet,delayed release (DR/EC) 40 mg PO BID PRN (Reason: Heartburn) Zyrtec 10 mg capsule 10 mg PO DAILY PRN (Reason: Allergy Symptoms) Rx Instructions: usually does half tab at a time cholecalciferol (vitamin D3) [Vitamin D3] 25 mcg (1,000 unit) capsule 3,000 unit PO HS metoprolol succinate 25 mg tablet extended release 24 hr 25 mg PO BID Rx Instructions: patient taking differently: has only been taking a few evenings a week "as needed" nicotine 21 mg/24 hr Patch 24 Hour 1 patch TRANSDERMAL DAILY furosemide 20 mg tablet 40 mg PO BID Rx Instructions: patient taking differently: only takes 20mg PO daily Toujeo SoloStar U-300 Insulin 300 unit/mL (1.5 mL) insulin pen 140 unit SUBCUT DAILY Rx Instructions: only took 80 units this am 09/13/2022 morphine 15 mg tablet 15 mg PO Q8H PRN (Reason: Breakthrough Pain 1-6) hydroxyzine pamoate [Vistaril] 25 mg capsule 25 mg PO Q8H PRN (Reason: anxiety) 5 Days Qty: 15 1RF budesonide 0.5 mg/2 mL suspension for nebulization 0.5 mg inhalation BID PRN (Reason: copd exac) ondansetron 4 mg tablet,disintegrating 4 mg PO DAILY PRN (Reason: nausea and vomiting) Qty: 10 0RF tamsulosin 0.4 mg capsule 0.4 mg PO HS Qty: 30 0RF Discharge Orders: Discharge Order (Routine); Ordered 09/14/22 Ordered By: Lobito Bustos Admission Data Admit Date/Time: 09/13/22 14:13 Attending Provider: Lobito Bustos Admit Provider: Agnieszka Araiza Primary Care Provider: Oswaldo Sampson Other Providers: Agnieszka Araiza ; Danay Nuñez ; Carlyle Rivera ; [facility] Other Interventions: Discharge Summary Assessment (RN) Last Done: 09/14/22 16:50
== END 2022-09-14 17:59 | disposition home or self-care (01) | DRG 286 ==
LOC: ED 11:39 → SUATTDRO 14:13 → EDINP 14:13 → 2S 17:54
PROC: CLB.CCO (2022-09-14 12:30)

== ENCOUNTER 2022-09-30 23:44 | Inpatient (IN) ==
[2022-10-01] MEDS ORDERED: CEFEPIME 2,000 MG/20 ML VIAL IV STA (00:08)
[2022-10-01] MEDS ORDERED: SODIUM CHLORIDE 0.9% 1000ML 1,000 ML IV SCH (00:15)
[2022-10-01 00:34] LABS: Basophils # (auto) 0.06 K/uL (0-0.2); Basophils % (auto) 0.4 %; Eosinophils # (auto) 0.17 K/uL (0-0.50); Eosinophils % (auto) 1.1 %; Hematocrit (blood only) 42.6 % (42.0-52.0); Hemoglobin 13.4 g/dl (14.0-18.0); Immature Granulocytes # (auto) 0.07 K/uL (0.01-0.20); Immature Granulocytes % (auto) 0.5 %; Lymphocytes # (auto) 1.95 K/uL (1.2-3.4); Lymphocytes % (auto) 12.9 %; Mean Corpuscular Hemoglobin 23.4 pg (25.0-34.0); Mean Corpuscular Hgb Conc 31.5 g/dL (32.0-36.0); Mean Corpuscular Volume 74.5 fL (80.0-100.0); Mean Platelet Volume 9.1 fL (9.4-12.4); Monocytes # (auto) 1.28 K/uL (0.11-0.59); Monocytes % (auto) 8.4 %; Neutrophils # (auto) 11.64 K/uL (1.40-6.50); Neutrophils % (auto) 76.7 %; Platelet Count 308 K/uL (130-400); RDW Standard Deviation 51.3 fL (36.4-46.3); Red Blood Count 5.72 M/uL (4.70-6.10); White Blood Count 15.17 K/ul (4.8-10.8)
[2022-10-01] MEDS ORDERED: MoRPHine SULFATE 4 MG/ML 1 ML CARP\\VIAL IV STA (00:54)
[2022-10-01 01:08] LABS: Albumin Globulin Ratio 1.5 (0.9-2); Albumin Level 3.5 gm/dl (3.4-5.0); BUN Creatinine Ratio 13.7 (10-20); Bilirubin,Total 0.3 mg/dl (0.2-1.0); Calcium 8.6 mg/dl (8.6-10.3); Creatinine Clr Calc Pharmacy 79.3 ml/min; Est GFR (African American) 73.3 ml/min; Est GFR (Non-African American) 63.2 ml/min; Globulin 2.4 gm/dl (2.5-4.0); Potassium 4.3 mmol/L (3.5-5.1); Total Protein 5.9 gm/dl (6.0-8.3); Troponin I High Sensitivity 43.6 pg/ml (0-20)
[2022-10-01] MEDS ORDERED: Heparin IV Adult Wt-Based Standard WITH Bolus Protocol IV STA (01:15)
[2022-10-01 01:24] LABS: Adenovirus PCR Not Detected (NotDetected); Bordetella parapertussis PCR Not Detected (NotDetected); Bordetella pertussis PCR Not Detected (NotDetected); Chlamydia pneumoniae PCR Not Detected (NotDetected); Coronavirus 229E PCR Not Detected (NotDetected); Coronavirus CoV-2 (COVID19)PCR Not Detected (NotDetected); Coronavirus HKU1 PCR Not Detected (NotDetected); Coronavirus NL63 PCR Not Detected (NotDetected); Coronavirus OC43PCR Not Detected (NotDetected); Human Metapneumovirus PCR Not Detected (NotDetected); Influenza A PCR Not Detected (NotDetected); Influenza B PCR Not Detected (NotDetected); Mycoplasma pneumoniae PCR Not Detected (NotDetected); Parainfluenza Virus 1 PCR Not Detected (NotDetected); Parainfluenza Virus 2 PCR Not Detected (NotDetected); Parainfluenza Virus 3 PCR Not Detected (NotDetected); Parainfluenza Virus 4 PCR Not Detected (NotDetected); Respiratory Syncytial VirusPCR Not Detected (NotDetected); Rhinovirus/Enterovirus PCR Not Detected (NotDetected)
[2022-10-01] MEDS ORDERED: HEPARIN SOD (PORCINE) 1000 UNIT/ML IV ONE (01:30)
[2022-10-01] MEDS ORDERED: HEPARIN SODIUM/DEXTROSE 25,000 UNITS/500 ML BAG IV SCH ×2 (01:30→04:00)
[2022-10-01] MEDS ORDERED: NITROGLYCERIN 2% OINTMENT 30GM TUBE EXT STA (01:39)
[2022-10-01] MEDS ORDERED: ACETAMINOPHEN 325 MG TAB PO STA (01:47)
[2022-10-01] MEDS ORDERED: ACETAMINOPHEN 325 MG TAB ONE (01:47)
[2022-10-01 01:49] LABS: Magnesium 1.8 mg/dl (1.7-2.4)
--- NOTE | 2022-10-01 01:52 | Emergency Department Note ---
Impression & Plan Chest pain, Elevated troponin ED Provider Note INFORMANT: Patient ED PROVIDER(S): Paddy Vasquez DO CHIEF COMPLAINT: Chest pain PLAN: Disposition: Admission Outpatient prescription management: none Discussion with: I spoke with the hospitalist, who will see the patient for admission/observation and further evaluation and consultation. MEDICAL DECISION MAKING: This is a 61-year-old male who presents to the ED with a chief complaint of chest pain. The patient also reported a cough since yesterday with brown sputum. He has used multiple doses of nitro today without much improvement. The patient states that he had a cath 2 weeks ago. This showed some noninterv entional bowel disease. He reports that his chest pain has been present all day. Patient's physical exam reveals clear lung sounds. Heart is regular rate and rhythm. Abdomen soft nontender. Skin without rashes. An EKG shows a sinus tach at a rate of 110 with a right bundle branch block without ischemic changes. White blood cell count was 15. Chest x-ray was negative for pneumonia. Procalcitonin was negative. Lactic acid was 2.5. Troponin was 43. COVID test was negative. The patient was told the results. I did speak with the hospitalist about the patient. The patient has taken aspirin today. He was started on IV heparin. He was also empirically given IV cefepime because of his temperature of 37.7 and his cough with productive sputum that was brown. He does not appear to be septic. Patient also given some IV morphine for his discomfort. Nitropaste was applied. He was given a liter normal saline IV. Triage Nursing notes reviewed. Vital Signs: reviewed Prior /Outside records reviewed: [none] Differential diagnosis: The differential that was considered includes acute myocardial infarction, acute coronary syndrome, myocarditis, pericarditis, pericardial effusions /tamponade, esophageal perforation, thoracic aortic dissection, pulmonary embolism, pneumonia, pneumothorax, pancreatitis, shingles, acute cholecystitis, perforated abdominal viscus. Diagnostics, as interpreted by me: 12 lead ECG: Sinus tach rate of 110 with right bundle branch block. No ST elevation. No PVCs. Normal QTc Cardiac Monitoring ordered: sinus rhythm in the 100 range. Medical decision rules: [none] Imaging studies: Chest x-ray: No pneumonia or pneumothorax. Procedures: none. Critical care: none. HPI: See MDM above. PAST MEDICAL HISTORY: See Below PAST SURGICAL HISTORY: See Below SOCIAL HISTORY: See Below HOME MEDICATIONS:See Below ALLERGIES: See Below VITALS: See Below PHYSICAL EXAMINATION: See MDM for positive findings otherwise unremarkable. CONSTITUTIONAL/VITAL SIGNS: Reviewed GENERAL:done as appropriate INTEGUMENTARY: done as appropriate HEAD: done as appropriate EYES: done as appropriate RESPIRATORY: done as appropriate CARDIOVASCULAR:done as appropriate GI/ABDOMEN:done as appropriate EXTREMITIES: done as appropriate NEUROLOGICAL: done as appropriate PSYCHIATRIC:done as appropriate MUSCULOSKELETAL:done as appropriate TRIAGE NURSING DOCUMENTATION REVIEWED. Past Med/Surg History Medical History Bifascicular block Chronic back pain Chronic diastolic CHF (congestive heart failure) EF 63% 05/2021 echo Chronic kidney disease (CKD) COPD (chronic obstructive pulmonary disease) Degenerative disc disease Diabetes mellitus, type 2 IDDM Diverticular disease GERD (gastroesophageal reflux disease) History of acute pancreatitis RELATED TO A STONE OBSTRUCTION, 10/2017 History of basal cell carcinoma History of SCC (squamous cell carcinoma) of skin History of skin cancer S/P EXCISION OF SCALP Irritable bowel syndrome (IBS) Medical cannabis use Migraines Obesity On home oxygen therapy 3 lpm via n/c Polycythemia, secondary Post traumatic stress disorder Postlaminectomy syndrome of lumbosacral region Sleep apnea CPAP WITH 4 L/MIN HS. S/P UPPP. SOBOE (shortness of breath on exertion) Tachycardia Therapeutic opioid-induced constipation (OIC) Tinea pedis Transient ischemic attack (TIA) unsure of date - treated at [facility] -- 5+ years ago. Surgical History Fusion of spine MULTIPLE LUMBARX2 History of appendectomy History of back surgery total of 6 back surgeries. 2 failed surgeries History of cardiac cath 2017-NO STENTS History of cardiac cath 02/2022 with 1 stent (LAD) Dr Leach at [facility]. History of colonoscopy History of ERCP 11/2017 [facility] History of esophagogastroduodenoscopy (EGD) History of heart artery stent x1 stent (02/2022) History of repair of rotator cuff LEFT SHOULDER History of surgery RT ELBOW History of tonsillectomy History of uvulopalatopharyngoplasty FOR TREATMENT OF AR S/P cholecystectomy 07/02/1819 Grade 2 view, MAC 3, ETT 8. Family History Other COPD (chronic obstructive pulmonary disease) Cancer Diabetes Heart disease Hypertension Social History Smoking Status: Former smoker Tobacco Type: Cigarettes packs per day: 1; Cigarettes Per Day: 20; Second Hand Exposure: No; Do You Dip or Chew Tobacco: No; Hx Alcohol Use: No Hx Substance Use: No Preferred Language: Qatari Communication Ability: Effective Visual Impairment: No Limitations [employer] Required: No Beliefs That Will Affect Care: None marital status: Current Living Situation: Alone Current Living Situation Comment: [facility] Feels Safe at Home: Yes Assistive Devices: Cane, CPAP and Glasses Allergies Allergies Allergy/AdvReac Type Severity Reaction Status Date / Time clarithromycin Allergy Severe DAMAGED Verified 10/01/22 01:41 LIVER PER PT-REQUIRED HOSPITALIZATION latex Allergy Intermediate skin Verified 10/01/22 01:41 irritation/rash adhesive AdvReac Mild SKIN Verified 10/01/22 01:41 RASH-WITH SOME TAPES Uncoded Nonscreenable Allergy Intermediate PLASTICS: Uncoded 10/01/22 01:41 Allergen BLISTERS GLP-1RA AdvReac Unknown Hx of Uncoded 10/01/22 01:41 Pancreatitis Home Meds Home Medications Medication Instructions Recorded Confirmed albuterol sulfate 90 mcg/actuation 2 puff inhalation Q6H PRN Wheezing 06/26/18 10/01/22 aerosol inhaler montelukast 10 mg tablet 10 mg PO HS PRN pt request 06/26/18 10/01/22 nitroglycerin 0.4 mg sublingual 1 tab sublingual UD PRN CHESTPAIN 06/26/18 10/01/22 tablet (Nitrostat) pantoprazole 40 mg tablet,delayed 40 mg PO BID PRN Heartburn 01/28/19 10/01/22 release Oxygen Home #1 ea 04/30/19 10/01/22 aspirin 81 mg tablet,delayed 81 mg PO HS 03/12/20 10/01/22 release blood-glucose meter (OneTouch 08/14/20 10/01/22 Verio Flex Meter) blood-glucose meter,continuous 02/03/21 10/01/22 (Dexcom G6 Litigation Claim Representative) blood-glucose sensor (Amiarecom G6 02/03/21 10/01/22 Sensor device) blood-glucose transmitter (Dexcom 02/03/21 10/01/22 G6 Transmitter device) cetirizine 10 mg capsule (Zyrtec) 10 mg PO DAILY PRN Allergy Symptoms 03/05/21 10/01/22 cholecalciferol (vitamin D3) 25 3,000 unit PO HS 03/05/21 10/01/22 mcg (1,000 unit) capsule (Vitamin D3) morphine 100 mg tablet,extended 100 mg PO TID@08,14,20 10/12/21 10/01/22 release clopidogrel 75 mg tablet 75 mg PO QAM 05/16/22 10/01/22 budesonide 0.5 mg/2 mL suspension 0.5 mg inhalation BID PRN copd exac 06/13/22 10/01/22 for nebulization linaclotide 145 mcg capsule 145 mcg PO DAILY PRN Constipation 08/01/22 10/01/22 (Linzess) metoprolol succinate 25 mg 25 mg PO BID 08/01/22 10/01/22 tablet,extended release 24 hr morphine 30 mg tablet,extended 30 mg PO Q8H PRN breakthrough pain 08/01/22 10/01/22 release 6-10 furosemide 20 mg tablet 40 mg PO BID 09/13/22 10/01/22 insulin glargine U-300 conc 300 140 unit subcut QAM 09/13/22 10/01/22 unit/mL (1.5 mL) subcutaneous pen (Toujeo SoloStar U-300 Insulin) morphine 15 mg immediate release 15 mg PO Q6 PRN Breakthrough Pain 09/13/22 tablet 1-6 nicotine 21 mg/24 hr daily 1 patch transdermal DAILY 09/13/22 10/01/22 transdermal patch insulin aspart U-100 100 unit/mL 0 unit subcut WM 10/01/22 10/01/22 (3 mL) subcutaneous pen (Novolog FlexPen U-100 Insulin aspart) testosterone 2 pump topical HS 10/01/22 10/01/22 Previous Rx's Medication Instructions Recorded hydroxyzine pamoate 25 mg capsule 25 mg PO Q8H PRN anxiety 5 days 06/16/21 (Vistaril) #15 caps blood sugar diagnostic #900 ea 08/19/22 Results & Data (ED) Vital Signs Vital Signs - 24 hr 09/30/22 23:54 06/16/23 23:57 09/30/22 23:50 Temperature 37.7 C H Temperature Source Oral Pulse Rate 110 H 111 H Pulse Rate from SpO2 Sensor Respiratory Rate 28 H 24 Respiratory Effort / Characteristics Non-Labored Spontaneous Respiratory Depth Normal Normal Respiratory Pattern Regular Blood Pressure 141/84 H Blood Pressure Mean 103 Pulse Oximetry 94 Oxygen Delivery Method Room Air Room Air Sepsis Recent Fever Within 48 Hours Yes Sepsis New/Unexplained Change in Mental Status No Sepsis Action Taken by Nursing Physician Notified 09/30/22 23:53 09/30/22 23:53 10/01/22 00:00 Temperature Temperature Source Pulse Rate 110 H 111 H Pulse Rate from SpO2 Sensor 109 H 110 H Respiratory Rate 22 22 Respiratory Effort / Characteristics Respiratory Depth Respiratory Pattern Blood Pressure 141/84 H Blood Pressure Mean 112 Pulse Oximetry 94 95 Oxygen Delivery Method Sepsis Recent Fever Within 48 Hours Sepsis New/Unexplained Change in Mental Status Sepsis Action Taken by Nursing 10/01/22 00:15 10/01/22 00:30 10/01/22 00:45 Temperature Temperature Source Pulse Rate 101 H 112 H 117 H Pulse Rate from SpO2 Sensor 104 H 111 H 111 H Respiratory Rate 17 23 19 Respiratory Effort / Characteristics Respiratory Depth Respiratory Pattern Blood Pressure Blood Pressure Mean Pulse Oximetry 95 94 94 Oxygen Delivery Method Sepsis Recent Fever Within 48 Hours Sepsis New/Unexplained Change in Mental Status Sepsis Action Taken by Nursing 09/30/22 23:50 Temperature Temperature Source Pulse Rate 108 H Pulse Rate from SpO2 Sensor Respiratory Rate Respiratory Effort / Characteristics Respiratory Depth Respiratory Pattern Blood Pressure Blood Pressure Mean Pulse Oximetry Oxygen Delivery Method Sepsis Recent Fever Within 48 Hours Sepsis New/Unexplained Change in Mental Status Sepsis Action Taken by Nursing Laboratory Data 10/01/22 00:08 10/01/22 00:08 Lab Results 10/01/22 10/01/22 10/01/22 Range/Units 00:08 00:08 00:08 WBC 15.17 H (4.8-10.8) K/ul RBC 5.72 (4.70-6.10) M/uL Hgb 13.4 L (14.0-18.0) g/dl Hct 42.6 (42.0-52.0) % MCV 74.5 L (80.0-100.0) fL MCH 23.4 L (25.0-34.0) pg MCHC 31.5 L (32.0-36.0) g/dL RDW Std Deviation 51.3 H (36.4-46.3) fL RDW Coeff of Ben 20.0 H (11.5-14.5) % Plt Count 308 (130-400) K/uL MPV 9.1 L (9.4-12.4) fL Immature Gran % (Auto) 0.5 % Neut % (Auto) 76.7 % Lymph % (Auto) 12.9 % Alfalfa % (Auto) 8.4 % Eos % (Auto) 1.1 % Baso % (Auto) 0.4 % Neut # (Auto) 11.64 H (1.40-6.50) K/uL Lymph # (Auto) 1.95 (1.2-3.4) K/uL Alfalfa # (Auto) 1.28 H (0.11-0.59) K/uL Eos # (Auto) 0.17 (0-0.50) K/uL Baso # (Auto) 0.06 (0-0.2) K/uL Immature Gran # (Auto) 0.07 (0.01-0.20) K/uL Sodium 136 (136-145) mmol/L Potassium 4.3 (3.5-5.1) mmol/L Chloride 99 (98-107) mmol/L Carbon Dioxide 30 (21-32) mmol/L Anion Gap 7 (3-11) BUN 17 (6-23) mg/dl Creatinine 1.24 (0.6-1.4) mg/dl Est Cr Clr Drug Dosing 79.3 ml/min Est GFR ( Amer) 73.3 ml/min Est GFR (Non-Af Amer) 63.2 ml/min BUN/Creatinine Ratio 13.7 (10-20) Glucose 315 H* (70-99(Fasting)) mg/dl Lactate 2.5 H* (0.4-2.0) mmol/L Calcium 8.6 (8.6-10.3) mg/dl Total Bilirubin 0.3 (0.2-1.0) mg/dl AST 14 (13-39) U/L ALT 17 (7-52) U/L Alkaline Phosphatase 78 (34-104) U/L Troponin I High Sens 43.6 H (0-20) pg/ml Total Protein 5.9 L (6.0-8.3) gm/dl Albumin 3.5 (3.4-5.0) gm/dl Globulin 2.4 L (2.5-4.0) gm/dl Albumin/Globulin Ratio 1.5 (0.9-2) Lipase 27 (11-82) U/L Procalcitonin (0-0.5) ng/ml Adenovirus (PCR) (NotDetected) B. pertussis DNA (PCR) (NotDetected) B.parapertussis DNA PCR (NotDetected) C. pneumoniae DNA (PCR) (NotDetected) Coronavirus OC43 (PCR) (NotDetected) Coronavirus HKU1 (PCR) (NotDetected) Coronavirus 229E (PCR) (NotDetected) SARS-CoV-2 (PCR) (NotDetected) Coronavirus NL63 (PCR) (NotDetected) Human Metapneumovir PCR (NotDetected) Influenza Type A (PCR) (NotDetected) Influenza Type B (PCR) (NotDetected) M. pneumoniae (PCR) (NotDetected) Parainfluenza 1 (PCR) (NotDetected) Parainfluenza 2 (PCR) (NotDetected) Parainfluenza 3 (PCR) (NotDetected) Parainfluenza 4 (PCR) (NotDetected) RSV (PCR) (NotDetected) Entero/Rhino (PCR) (NotDetected) 10/01/22 10/01/22 Range/Units 00:08 00:23 WBC (4.8-10.8) K/ul RBC (4.70-6.10) M/uL Hgb (14.0-18.0) g/dl Hct (42.0-52.0) % MCV (80.0-100.0) fL MCH (25.0-34.0) pg MCHC (32.0-36.0) g/dL RDW Std Deviation (36.4-46.3) fL RDW Coeff of Ben (11.5-14.5) % Plt Count (130-400) K/uL MPV (9.4-12.4) fL Immature Gran % (Auto) % Neut % (Auto) % Lymph % (Auto) % Alfalfa % (Auto) % Eos % (Auto) % Baso % (Auto) % Neut # (Auto) (1.40-6.50) K/uL Lymph # (Auto) (1.2-3.4) K/uL Alfalfa # (Auto) (0.11-0.59) K/uL Eos # (Auto) (0-0.50) K/uL Baso # (Auto) (0-0.2) K/uL Immature Gran # (Auto) (0.01-0.20) K/uL Sodium (136-145) mmol/L Potassium (3.5-5.1) mmol/L Chloride (98-107) mmol/L Carbon Dioxide (21-32) mmol/L Anion Gap (3-11) BUN (6-23) mg/dl Creatinine (0.6-1.4) mg/dl Est Cr Clr Drug Dosing ml/min Est GFR ( Amer) ml/min Est GFR (Non-Af Amer) ml/min BUN/Creatinine Ratio (10-20) Glucose (70-99(Fasting)) mg/dl Lactate (0.4-2.0) mmol/L Calcium (8.6-10.3) mg/dl Total Bilirubin (0.2-1.0) mg/dl AST (13-39) U/L ALT (7-52) U/L Alkaline Phosphatase (34-104) U/L Troponin I High Sens (0-20) pg/ml Total Protein (6.0-8.3) gm/dl Albumin (3.4-5.0) gm/dl Globulin (2.5-4.0) gm/dl Albumin/Globulin Ratio (0.9-2) Lipase (11-82) U/L Procalcitonin 0.06 (0-0.5) ng/ml Adenovirus (PCR) Not Detected (NotDetected) B. pertussis DNA (PCR) Not Detected (NotDetected) B.parapertussis DNA PCR Not Detected (NotDetected) C. pneumoniae DNA (PCR) Not Detected (NotDetected) Coronavirus OC43 (PCR) Not Detected (NotDetected) Coronavirus HKU1 (PCR) Not Detected (NotDetected) Coronavirus 229E (PCR) Not Detected (NotDetected) SARS-CoV-2 (PCR) Not Detected (NotDetected) Coronavirus NL63 (PCR) Not Detected (NotDetected) Human Metapneumovir PCR Not Detected (NotDetected) Influenza Type A (PCR) Not Detected (NotDetected) Influenza Type B (PCR) Not Detected (NotDetected) M. pneumoniae (PCR) Not Detected (NotDetected) Parainfluenza 1 (PCR) Not Detected (NotDetected) Parainfluenza 2 (PCR) Not Detected (NotDetected) Parainfluenza 3 (PCR) Not Detected (NotDetected) Parainfluenza 4 (PCR) Not Detected (NotDetected) RSV (PCR) Not Detected (NotDetected) Entero/Rhino (PCR) Not Detected (NotDetected) Administered Medications Discontinued Medications Sodium Chloride (Nss 1000ml) 1,000 mls @ 999 mls/hr IV .Q1H1M CHASITY Stop: 10/01/22 01:15 Last Admin: 10/01/22 01:02 Dose: 999 mls/hr Documented By: RUI Cefepime HCl (Maxipime) 2,000 mg in 20 mls @ 5 mls/min IV NOW STA; Protocol Stop: 10/01/22 00:11 Last Admin: 10/01/22 01:02 Dose: 5 mls/min Documented By: RUI Morphine Sulfate (Morphine Sulfate 4 Mg/Ml 1 Ml Carp\Vial) 4 mg IV NOW STA Stop: 10/01/22 00:55 Last Admin: 10/01/22 01:01 Dose: 4 mg Documented By: RUI Discharge Plan Visit Data Chief Complaint: Chest Pain Stated Complaint: Chest Pain, L Arm Pain, SOB ED Provider: Paddy Vasquez Discharge Problem: Chest pain, Elevated troponin Patient Disposition: Being Evaluated by Hospitalist Forms Stand Alone Forms: [facility], Virtual Emergency Department, Important Visit Information Prescriptions Prescriptions: No Action clopidogrel 75 mg tablet 75 mg PO QAM (DME) blood sugar diagnostic Strip See Rx Instructions .ROUTE .MEDSUPPLY Qty: 900 3RF Rx Instructions: test 10 times QD. OneTouch Ultra (DME) Oxygen Home Liters Per Minute See Rx Instructions .ROUTE .MEDSUPPLY Qty: 1 Rx Instructions: 4 LPM at night with CPAP morphine 30 mg tablet extended release 30 mg PO Q8H PRN (Reason: breakthrough pain 6-10) Rx Instructions: Per pt he takes 3 times daily. Depends on his day how he takes it. Typically more into the night. Linzess 145 mcg capsule 145 mcg PO DAILY PRN (Reason: Constipation) (DME) blood-glucose meter [OneTouch Verio Flex meter] Misc See Rx Instructions .ROUTE .MEDSUPPLY Rx Instructions: Test blood sugars 2 times a day morphine 100 mg tablet extended release 100 mg PO TID@08,14,20 Rx Instructions: last dose at 8AM this morning , around 2-3 and 8 at night. (DME) Dexcom G6 Sensor Device See Rx Instructions .Route Rx Instructions: As directed (DME) Dexcom G6 Litigation Claim Representative Misc See Rx Instructions .Route Rx Instructions: As directed (DME) Dexcom G6 Transmitter Device See Rx Instructions .Route Rx Instructions: As directed aspirin 81 mg Tablet,Delayed Release (Dr/Ec) 81 mg PO HS nitroglycerin [Nitrostat] 0.4 mg Tablet, Sublingual 1 tab Sublingual UD PRN (Reason: CHESTPAIN) montelukast 10 mg Tablet 10 mg PO HS PRN (Reason: pt request) albuterol sulfate 90 mcg/actuation Hfa Aerosol Inhaler 2 puff INHALATION Q6H PRN (Reason: Wheezing) pantoprazole 40 mg tablet,delayed release (DR/EC) 40 mg PO BID PRN (Reason: Heartburn) Zyrtec 10 mg capsule 10 mg PO DAILY PRN (Reason: Allergy Symptoms) Rx Instructions: usually does half tab at a time cholecalciferol (vitamin D3) [Vitamin D3] 25 mcg (1,000 unit) capsule 3,000 unit PO HS metoprolol succinate 25 mg tablet extended release 24 hr 25 mg PO BID nicotine 21 mg/24 hr Patch 24 Hour 1 patch TRANSDERMAL DAILY furosemide 20 mg tablet 40 mg PO BID Rx Instructions: patient taking differently: only takes 20mg PO daily Toujeo SoloStar U-300 Insulin 300 unit/mL (1.5 mL) insulin pen 140 unit SUBCUT QAM morphine 15 mg tablet 15 mg PO Q6 PRN (Reason: Breakthrough Pain 1-6) hydroxyzine pamoate [Vistaril] 25 mg capsule 25 mg PO Q8H PRN (Reason: anxiety) 5 Days Qty: 15 1RF budesonide 0.5 mg/2 mL suspension for nebulization 0.5 mg inhalation BID PRN (Reason: copd exac) testosterone 20.25 mg/1.25 gram (1.62 %) gel in metered-dose pump 2 pump topical HS Rx Instructions: apply 1 pump amount over max area of EACH upper arm and shoulder PDMP queried okay to fill insulin aspart U-100 [Novolog FlexPen U-100 Insulin] 100 unit/mL (3 mL) insulin pen 0 unit SQ WM MDD 100 units Rx Instructions: per sliding scale with meals; TDD 100 units Referrals Referrals: Oswaldo Sampson MD [Primary Care Provider] -
[2022-10-01] MEDS ORDERED: MoRPHine SULFATE CR 15 MG TABCR PO STA (02:03)
[2022-10-01] MEDS ORDERED: PROMETHAZINE HCL 12.5 MG in SODIUM CHLORIDE 0.9% 50 ML IV PRN (02:04)
[2022-10-01] MEDS ORDERED: METOPROLOL TARTRATE 1 MG/ML VIAL IV STA ×2 (02:11→09:30)
[2022-10-01] MEDS: MoRPHine SULFATE 4 MG/ML 1 ML CARP\\VIAL IV PRN ×2 (02:30→06:36)
[2022-10-01 02:47] LABS: Appearance Urine Cloudy (Clear); Bacteria Urine Automated Negative (Negative); Bilirubin Urine Negative (Negative); Blood Urine Negative (Negative); Color Urine Yellow; Epithelial Cell Urine Auto 0-5 /lpf (0-5); Glucose Urine UA 3+ (Negative); Ketones Urine Negative (Negative); Leukocyte Esterase Urine Negative (Negative); Nitrite Urine Negative (Negative); Protein Urine 3+ (Negative); RBC Urine Automated 0-4 /hpf (0-4); Specific Gravity Urine 1.017 (1.000-1.030); Urobilinogen Urine Negative (Negative); WBC Urine Automated 0 /hpf (0-5)
[2022-10-01] MEDS ORDERED: OPTIRAY 320 125ml IV ONE (03:05)
[2022-10-01 03:09] LABS: C Reactive Protein 0.6 mg/dl (0-0.5)
[2022-10-01] MEDS ORDERED: MoRPHine SULFATE CR 15 MG TABCR PO PRN ×5 (03:11→19:47)
[2022-10-01] MEDS ORDERED: MoRPHine SULFATE IR 15 MG TAB (IMMEDIATE RELEASE) PO PRN ×2 (03:11→17:17)
--- NOTE | 2022-10-01 03:17 | CT Scan Report ---
Exam(s): CTA CHEST IV Amt: 120ML OF OPTIRAY 320 EXAM: CT Angiography Chest With Intravenous Contrast CLINICAL HISTORY: Reason for exam: pleuritic cp. TECHNIQUE: Axial computed tomographic angiography images of the chest with intravenous contrast. CTDI is 52.15 mGy and DLP is 888.13 mGy-cm. Automated exposure control was utilized for the study. A dose lowering technique was utilized adhering to the principles of ALARA. MIP reconstructed images were created and reviewed. COMPARISON: Previous CT September 21, 2022. FINDINGS: Pulmonary arteries: Unremarkable. No pulmonary embolism. Aorta: No acute findings. No thoracic aortic aneurysm. Lungs: Unremarkable. No mass. No consolidation. Pleural space: Unremarkable. No significant effusion. No pneumothorax. Heart: Unremarkable. No cardiomegaly. No significant pericardial effusion. No evidence of RV dysfunction. Bones/joints: No acute fracture. No dislocation. Soft tissues: Unremarkable. Lymph nodes: Unremarkable. No enlarged lymph nodes. IMPRESSION: No evidence of pulmonary emboli or acute cardiopulmonary process. Electronically signed by: Danial Osborne MD 10/01/22 03:16 AM
[2022-10-01 03:24] LABS: Troponin I High Sensitivity 117.2 pg/ml (0-20)
[2022-10-01 03:33] LABS: Partial Thromboplastin Ratio 0.8; Partial Thromboplastin Time 23.9 Seconds (21.0-31.0)
[2022-10-01] MEDS ORDERED: Heparin IV Adult Wt-Based Standard *NO* Bolus Protocol IV ONE (03:43)
[2022-10-01] MEDS ORDERED: SODIUM CHLORIDE 0.9% 1000ML 1,000 ML IV ONE (03:46)
[2022-10-01] MEDS ORDERED: ALBUMIN 25% 25 GM/100 ML VIAL IV ONE (04:12)
[2022-10-01] MEDS ORDERED: XOPENEX/ATROVENT 1.25mg/0.5MG NEB COMBO NEB STA (04:13)
[2022-10-01] MEDS ORDERED: DOXYCYCLINE HYCLATE 100 MG CAP PO STA (04:13)
--- NOTE | 2022-10-01 04:14 | History & Physical Report ---
Date of Service October 01, 2022 Assessment & Plan (1) Chest pain: Plan: Multifactorial: NSTEMI, history of CAD status post stent Sepsis secondary to complicated bronchitis, history asthma/COPD Uncontrolled hypertension and anxiety contributory to symptoms chronic diastolic heart failure, patient presenting with peripheral edema from right-sided heart failure hyperlipidemia/statin intolerance DM2 insulin-requiring, suboptimal control as of recent hemoglobin A1c 8.7 last August 2022 chronic back pain on narcotics AR status post surgery on CPAP hx GERD on PPI skin cancer postsurgery hx secondary polycythemia, intermittent outpatient phlebotomy chronic anemia, hemoglobin at baseline ongoing tobacco abuse PCU Analgesia, anxiolytic as needed antiplatelet Rx, beta-judit, IV heparin CS, Doxycycline, nebs 1 dose given wheezing on exam Follow troponin Update TTE Cardiology consult Re: NSTEMI N.p.o. until patient seen by cardiology in anticipation of ischemic work-up Resume home diuretic Rx once diet resumed Basal insulin adjusted for n.p.o. status, ISS BG goal 110-140, carb count coverage once diet resumed Nicotine patch DVT prophylaxis. IV heparin Full code Text document was generated using [employer] voice recognition software. It may contain grammatical or spelling errors. Kindly contact undersigned for clarification of any documentation item in question. History of Present Illness Chief Complaint: Chest pain Primary Care Provider: Oswaldo Sampsno MD History obtained from patient and records. Medical history significant for chronic diastolic heart failure (EF 60 to 65%, TTE 2022 ), CAD status post stent, hypertension, hyperlipidemia/statin intolerance, DM2 insulin-requiring, chronic back pain on narcotics, asthma/COPD, AR status post surgery on CPAP, GERD, skin cancer postsurgery, hypogonadism on testosterone Rx, hx secondary polycythemia intermittent outpatie nt phlebotomy as per records, chronic anemia (baseline hemoglobin of 13), ongoing tobacco abuse Last confinement September 13-2022 for multifactorial chest pain. Patent prior stent with mild in-stent restenosis on diagnostic cardiac catheterization. Medical management recommended. Daily anginal attacks since discharge from the hospital relieved by nitroglycerin. Some fluid retention. Patient claims to be compliant with home medications. Started smoking again at home last week. Patient seen at ER last 09/21/2022 for evaluation. SBP 200s at the ER. CTA chest negative for PE. RUE venous Dopplers negative for DVT. Patient seen on follow-up at [facility] cardiology office the following day. Concern for uncontrolled hypertension and hypervolemia from right-sided heart failure. Losartan reintroduced to patient's BP regimen. Patient seen at PCPs office on follow-up visit 4 days ago. Provider to notify cardiology of recurrent chest pain symptoms. Outpatient arterial LE Dopplers contemplated for upper leg pain/possible claudication. Yesterday, patient noted cough productive of junky brown sputum. Worsening anginal attack with shortness of breath and radiation to both arms partially relieved by nitroglycerin. No unusual headaches or belly pain. Arms and legs more swollen than usual with some weight gain. Cefepime and Nitropaste administered at the ER. Patient currently more comfortable but not chest pain free. MEDICAL HISTORY: As above. SURGERIES: He has had back surgery, appendectomy, tonsillectomy, uvulectomy for sleep apnea, shoulder surgery, elbow surgery, cholecystectomy FAMILY HISTORY: COPD. Heart disease PERSONAL AND SOCIAL HISTORY: One pack daily. No intake of alcoholic beverages. Disabled. Allergies Allergy/AdvReac Type Severity Reaction Status Date / Time clarithromycin Allergy Severe DAMAGED Verified 10/01/22 01:41 LIVER PER PT-REQUIRED HOSPITALIZATION latex Allergy Intermediate skin Verified 10/01/22 01:41 irritation/rash adhesive AdvReac Mild SKIN Verified 10/01/22 01:41 RASH-WITH SOME TAPES dulaglutide AdvReac Unknown hx Verified 10/01/22 02:13 pancreatitis exenatide AdvReac Unknown hx Verified 10/01/22 02:13 pancreatitis liraglutide AdvReac Unknown hx Verified 10/01/22 02:13 pancreatitis semaglutide AdvReac Unknown hx Verified 10/01/22 02:13 pancreatitis Uncoded Nonscreenable Allergy Intermediate PLASTICS: Uncoded 10/01/22 01:41 Allergen BLISTERS Home Medications Medication Instructions Recorded Confirmed Type albuterol sulfate 90 mcg/actuation 2 puff inhalation Q6H PRN Wheezing 06/26/18 10/01/22 History aerosol inhaler montelukast 10 mg tablet 10 mg PO HS PRN pt request 06/26/18 10/01/22 History nitroglycerin 0.4 mg sublingual 1 tab sublingual UD PRN CHESTPAIN 06/26/18 10/01/22 History tablet (Nitrostat) pantoprazole 40 mg tablet,delayed 40 mg PO BID PRN Heartburn 01/28/19 10/01/22 History release Oxygen Home #1 ea 04/30/19 10/01/22 History aspirin 81 mg tablet,delayed 81 mg PO HS 03/12/20 10/01/22 History release blood-glucose meter (OneTouch 08/14/20 10/01/22 History Verio Flex Meter) blood-glucose meter,continuous 02/03/21 10/01/22 History (Dexcom G6 Support Associate) blood-glucose sensor (Dexcom G6 02/03/21 10/01/22 History Sensor device) blood-glucose transmitter (Dexcom 02/03/21 10/01/22 History G6 Transmitter device) cetirizine 10 mg capsule (Zyrtec) 10 mg PO DAILY PRN Allergy Symptoms 03/05/21 10/01/22 History cholecalciferol (vitamin D3) 25 3,000 unit PO HS 03/05/21 10/01/22 History mcg (1,000 unit) capsule (Vitamin D3) hydroxyzine pamoate 25 mg capsule 25 mg PO Q8H PRN anxiety 5 days 06/16/21 10/01/22 Rx (Vistaril) #15 caps morphine 100 mg tablet,extended 100 mg PO TID@08,14,20 10/12/21 10/01/22 History release clopidogrel 75 mg tablet 75 mg PO QAM 05/16/22 10/01/22 History budesonide 0.5 mg/2 mL suspension 0.5 mg inhalation BID 06/13/22 10/01/22 History for nebulization linaclotide 145 mcg capsule 145 mcg PO DAILY PRN Constipation 08/01/22 10/01/22 History (Linzess) metoprolol succinate 25 mg 25 mg PO BID 08/01/22 10/01/22 History tablet,extended release 24 hr morphine 30 mg tablet,extended 30 mg PO Q8H PRN breakthrough pain 08/01/22 10/01/22 History release 6-10 blood sugar diagnostic #900 ea 08/19/22 10/01/22 Rx furosemide 20 mg tablet 40 mg PO BID 09/13/22 10/01/22 History insulin glargine U-300 conc 300 140 unit subcut QAM 09/13/22 10/01/22 History unit/mL (1.5 mL) subcutaneous pen ([place] U-300 Insulin) morphine 15 mg immediate release 15 mg PO Q6 PRN Breakthrough Pain 09/13/22 10/01/22 History tablet 1-6 nicotine 21 mg/24 hr daily 1 patch transdermal DAILY 09/13/22 10/01/22 History transdermal patch insulin aspart U-100 100 unit/mL 0 unit subcut WM 10/01/22 10/01/22 History (3 mL) subcutaneous pen (Novolog FlexPen U-100 Insulin aspart) losartan 25 mg tablet 25 mg PO DAILY 10/01/22 10/01/22 History testosterone 2 pump topical HS 10/01/22 10/01/22 History Past Med/Surg History Medical History Bifascicular block Chronic back pain Chronic diastolic CHF (congestive heart failure) EF 63% 05/2021 echo Chronic kidney disease (CKD) COPD (chronic obstructive pulmonary disease) Degenerative disc disease Diabetes mellitus, type 2 IDDM Diverticular disease GERD (gastroesophageal reflux disease) History of acute pancreatitis RELATED TO A STONE OBSTRUCTION, 10/2017 History of basal cell carcinoma History of SCC (squamous cell carcinoma) of skin History of skin cancer S/P EXCISION OF SCALP Irritable bowel syndrome (IBS) Medical cannabis use Migraines Obesity On home oxygen therapy 3 lpm via n/c Polycythemia, secondary Post traumatic stress disorder Postlaminectomy syndrome of lumbosacral region Sleep apnea CPAP WITH 4 L/MIN HS. S/P UPPP. SOBOE (shortness of breath on exertion) Tachycardia Therapeutic opioid-induced constipation (OIC) Tinea pedis Transient ischemic attack (TIA) unsure of date - treated at [facility] -- 5+ years ago. Surgical History Fusion of spine MULTIPLE LUMBARX2 History of appendectomy History of back surgery total of 6 back surgeries. 2 failed surgeries History of cardiac cath 2017-NO STENTS History of cardiac cath 02/2022 with 1 stent (LAD) Dr Leach at [facility]. History of colonoscopy History of ERCP 11/2017 [facility] History of esophagogastroduodenoscopy (EGD) History of heart artery stent x1 stent (02/2022) History of repair of rotator cuff LEFT SHOULDER History of surgery RT ELBOW History of tonsillectomy History of uvulopalatopharyngoplasty FOR TREATMENT OF AR S/P cholecystectomy 07/02/1819 Grade 2 view, MAC 3, ETT 8. Family History Other COPD (chronic obstructive pulmonary disease) Cancer Diabetes Heart disease Hypertension Social History Smoking Status: Current every day smoker Tobacco Type: Cigarettes packs per day: 1; Cigarettes Per Day: 1 ppd; Second Hand Exposure: No; Do You Dip or Chew Tobacco: No; Tobacco Cessation Education Requested by Patient: No Hx Alcohol Use: No Hx Substance Use: Yes Last Used Substance: Just Prior to Arrival Last Used Substance Other:: Patient used marijuana pen last evening before coming to ER Substance Use Type Other:: MEDICAL MARIJUANA Preferred Language: Mauritanian Communication Ability: Effective Visual Impairment: No Limitations Chiller Tender Required: No Beliefs That Will Affect Care: None marital status: Current Living Situation: Spouse Current Living Situation Comment: [facility] Other Information That Helps Us Care for You: No Feels Safe at Home: Yes Safety Concerns: Feels Safe At This Time Assistive Devices: Cane, CPAP, Glasses and Oxygen - Continuous Review of Systems Review of Systems: As per HPI, all other systems reviewed and negative Physical Exam Physical Exam: GENERAL: Anxious, obese, slightly uncomfortable, no respiratory distress SKIN: Plethoric, warm HEENT: [place] palpebral conjunctivae, no ptosis, moist buccal mucosa NECK : Supple, short neck, no tenderness CHEST : Decreased breath sounds, scattered expiratory wheezes, anterior chest wall tenderness HEART : Tachycardic, no obvious murmurs ABDOMEN: Some distention, nontender BACK : Chronic low back tenderness EXTREMITIES : Minimal LE swelling, no LE tenderness, minimal forearm swelling bilaterally, no other conspicuous deformities noted NEUROLOGIC : Coherent, no facial asymmetry, no other gross focality Results & Data Results & Data Vital Signs (Past 12 Hours) Vital Signs Temp Pulse Resp BP Pulse Ox O2 Del Method 10/01/22 03:30 98 H 18 122/65 94 10/01/22 03:15 99 H 21 125/70 95 10/01/22 03:06 96 09/30/22 23:50 108 H 10/01/22 00:45 117 H 19 94 10/01/22 00:30 112 H 23 94 10/01/22 00:15 101 H 17 95 10/01/22 00:00 111 H 22 95 09/30/22 23:53 110 H 22 94 09/30/22 23:53 141/84 H 09/30/22 23:50 111 H 24 09/30/22 23:57 Room Air 09/30/22 23:54 37.7 C H 110 H 28 H 141/84 H 94 Room Air Laboratory Results Laboratory Results WBC 15.17 K/ul (4.8-10.8) H 10/01/22 00:08 RBC 5.72 M/uL (4.70-6.10) 10/01/22 00:08 Hgb 13.4 g/dl (14.0-18.0) L 10/01/22 00:08 Hct 42.6 % (42.0-52.0) 10/01/22 00:08 MCV 74.5 fL (80.0-100.0) L 10/01/22 00:08 MCH 23.4 pg (25.0-34.0) L 10/01/22 00:08 MCHC 31.5 g/dL (32.0-36.0) L 10/01/22 00:08 RDW Std Deviation 51.3 fL (36.4-46.3) H 10/01/22 00:08 RDW Coeff of Ben 20.0 % (11.5-14.5) H 10/01/22 00:08 Plt Count 308 K/uL (130-400) 10/01/22 00:08 MPV 9.1 fL (9.4-12.4) L 10/01/22 00:08 Immature Gran % (Auto) 0.5 % 10/01/22 00:08 Neut % (Auto) 76.7 % 10/01/22 00:08 Lymph % (Auto) 12.9 % 10/01/22 00:08 Thomas % (Auto) 8.4 % 10/01/22 00:08 Eos % (Auto) 1.1 % 10/01/22 00:08 Baso % (Auto) 0.4 % 10/01/22 00:08 Neut # (Auto) 11.64 K/uL (1.40-6.50) H 10/01/22 00:08 Lymph # (Auto) 1.95 K/uL (1.2-3.4) 10/01/22 00:08 Thomas # (Auto) 1.28 K/uL (0.11-0.59) H 10/01/22 00:08 Eos # (Auto) 0.17 K/uL (0-0.50) 10/01/22 00:08 Baso # (Auto) 0.06 K/uL (0-0.2) 10/01/22 00:08 Immature Gran # (Auto) 0.07 K/uL (0.01-0.20) 10/01/22 00:08 ESR 43 mm/hr (0-20) H 10/01/22 00:08 APTT 23.9 Seconds (21.0-31.0) 10/01/22 02:20 PTT Ratio 0.8 10/01/22 02:20 Sodium 136 mmol/L (136-145) 10/01/22 00:08 Potassium 4.3 mmol/L (3.5-5.1) 10/01/22 00:08 Chloride 99 mmol/L (98-107) 10/01/22 00:08 Carbon Dioxide 30 mmol/L (21-32) 10/01/22 00:08 Anion Gap 7 (3-11) 10/01/22 00:08 BUN 17 mg/dl (6-23) 10/01/22 00:08 Creatinine 1.24 mg/dl (0.6-1.4) 10/01/22 00:08 Est Cr Clr Drug Dosing 79.3 ml/min 10/01/22 00:08 Est GFR ( Amer) 73.3 ml/min 10/01/22 00:08 Est GFR (Non-Af Amer) 63.2 ml/min 10/01/22 00:08 BUN/Creatinine Ratio 13.7 (10-20) 10/01/22 00:08 Glucose 315 mg/dl (70-99(Fasting)) H* 10/01/22 00:08 Lactate 2.3 mmol/L (0.4-2.0) H* 10/01/22 02:20 Calcium 8.6 mg/dl (8.6-10.3) 10/01/22 00:08 Magnesium 1.8 mg/dl (1.7-2.4) 10/01/22 00:08 Total Bilirubin 0.3 mg/dl (0.2-1.0) 10/01/22 00:08 AST 14 U/L (13-39) 10/01/22 00:08 ALT 17 U/L (7-52) 10/01/22 00:08 Alkaline Phosphatase 78 U/L (34-104) 10/01/22 00:08 Troponin I High Sens 117.2 pg/ml (0-20) H* D 10/01/22 02:20 C-Reactive Protein 0.60 mg/dl (0-0.5) H 10/01/22 02:20 Total Protein 5.9 gm/dl (6.0-8.3) L 10/01/22 00:08 Albumin 3.5 gm/dl (3.4-5.0) 10/01/22 00:08 Globulin 2.4 gm/dl (2.5-4.0) L 10/01/22 00:08 Albumin/Globulin Ratio 1.5 (0.9-2) 10/01/22 00:08 Lipase 27 U/L (11-82) 10/01/22 00:08 Procalcitonin 0.06 ng/ml (0-0.5) 10/01/22 00:08 Urine Color Yellow 10/01/22 00:10 Urine Appearance Cloudy (Clear) A 10/01/22 00:10 Urine pH 7.0 (4.5-7.5) 10/01/22 00:10 Ur Specific [place] 1.017 (1.000-1.030) 10/01/22 00:10 Urine Protein 3+ (Negative) H 10/01/22 00:10 Urine Glucose (UA) 3+ (Negative) H 10/01/22 00:10 Urine Ketones Negative (Negative) 10/01/22 00:10 Urine Blood Negative (Negative) 10/01/22 00:10 Urine Nitrite Negative (Negative) 10/01/22 00:10 Urine Bilirubin Negative (Negative) 10/01/22 00:10 Urine Urobilinogen Negative (Negative) 10/01/22 00:10 Ur Leukocyte Esterase Negative (Negative) 10/01/22 00:10 Urine WBC (Auto) 0 /hpf (0-5) 10/01/22 00:10 Urine RBC (Auto) 0-4 /hpf (0-4) 10/01/22 00:10 U Hyaline Cast (Auto) 1-5 /lpf (0-5) 10/01/22 00:10 U Epithel Cells (Auto) 0-5 /lpf (0-5) 10/01/22 00:10 Urine Bacteria (Auto) Negative (Negative) 10/01/22 00:10 Adenovirus (PCR) Not Detected (NotDetected) 10/01/22 00:23 B. pertussis DNA (PCR) Not Detected (NotDetected) 10/01/22 00:23 B.parapertussis DNA PCR Not Detected (NotDetected) 10/01/22 00:23 C. pneumoniae DNA (PCR) Not Detected (NotDetected) 10/01/22 00:23 Coronavirus OC43 (PCR) Not Detected (NotDetected) 10/01/22 00:23 Coronavirus HKU1 (PCR) Not Detected (NotDetected) 10/01/22 00:23 Coronavirus 229E (PCR) Not Detected (NotDetected) 10/01/22 00:23 SARS-CoV-2 (PCR) Not Detected (NotDetected) 10/01/22 00:23 Coronavirus NL63 (PCR) Not Detected (NotDetected) 10/01/22 00:23 Human Metapneumovir PCR Not Detected (NotDetected) 10/01/22 00:23 Influenza Type A (PCR) Not Detected (NotDetected) 10/01/22 00:23 Influenza Type B (PCR) Not Detected (NotDetected) 10/01/22 00:23 M. pneumoniae (PCR) Not Detected (NotDetected) 10/01/22 00:23 Parainfluenza 1 (PCR) Not Detected (NotDetected) 10/01/22 00:23 Parainfluenza 2 (PCR) Not Detected (NotDetected) 10/01/22 00:23 Parainfluenza 3 (PCR) Not Detected (NotDetected) 10/01/22 00:23 Parainfluenza 4 (PCR) Not Detected (NotDetected) 10/01/22 00:23 RSV (PCR) Not Detected (NotDetected) 10/01/22 00:23 Entero/Rhino (PCR) Not Detected (NotDetected) 10/01/22 00:23 Impressions Chest CTA 10/01/22 02:03 Exam(s): CTA CHEST IV Amt: 120ML OF OPTIRAY 320 EXAM: CT Angiography Chest With Intravenous Contrast CLINICAL HISTORY: Reason for exam: pleuritic cp. TECHNIQUE: Axial computed tomographic angiography images of the chest with intravenous contrast. CTDI is 52.15 mGy and DLP is 888.13 mGy-cm. Automated exposure control was utilized for the study. A dose lowering technique was utilized adhering to the principles of ALARA. MIP reconstructed images were created and reviewed. COMPARISON: Previous CT September 21, 2022. FINDINGS: Pulmonary arteries: Unremarkable. No pulmonary embolism. Aorta: No acute findings. No thoracic aortic aneurysm. Lungs: Unremarkable. No mass. No consolidation. Pleural space: Unremarkable. No significant effusion. No pneumothorax. Heart: Unremarkable. No cardiomegaly. No significant pericardial effusion. No evidence of RV dysfunction. Bones/joints: No acute fracture. No dislocation. Soft tissues: Unremarkable. Lymph nodes: Unremarkable. No enlarged lymph nodes. IMPRESSION: No evidence of pulmonary emboli or acute cardiopulmonary process. Electronically signed by: Danial Osborne MD 10/01/22 03:16 AM Diagnostic Findings EKG as per my interpretation : Rate 110, sinus tachycardia, LAD, LAFB, RBBB, no ischemia
[2022-10-01] MEDS ORDERED: IPRATROPIUM BROMIDE NEB SOLN 0.02% 2.5 ML VIAL INH ONE (04:16)
[2022-10-01] MEDS ORDERED: LEVALBUTEROL 1.25 MG/3 ML NEB NEB ONE (04:17)
[2022-10-01] MEDS ORDERED: LINACLOTIDE 145 MCG CAPSULE PO PRN (06:00)
[2022-10-01] MEDS ORDERED: GLUCAGON FOR INJ 1 MG VIAL SQ PRN (06:00)
[2022-10-01] MEDS ORDERED: GLUCOSE 10 TAB/TUBE PO PRN (06:00)
[2022-10-01] MEDS ORDERED: GLUCOSE 40% GEL 15 GM TUBE PO PRN (06:00)
[2022-10-01] MEDS ORDERED: BUDESONIDE 0.5 MG/2 ML VIAL (PULMICORT) INH PRN (06:00)
[2022-10-01] MEDS ORDERED: ACETAMINOPHEN 325 MG TAB PO PRN (06:00)
[2022-10-01] MEDS ORDERED: MONTELUKAST SODIUM 10 MG TABLET PO PRN (06:00)
[2022-10-01] MEDS ORDERED: DEXTROSE 50% 50 ML SYRINGE IV PRN (06:00)
[2022-10-01] MEDS ORDERED: CETIRIZINE HCL 10 MG TABLET PO PRN (06:00)
[2022-10-01] MEDS ORDERED: CARBOHYDRATES FOR HYPOGLYCEMIA PO PRN (06:00)
[2022-10-01 06:04] LABS: Basophils # (auto) 0.05 K/uL (0-0.2); Basophils % (auto) 0.4 %; Eosinophils # (auto) 0.11 K/uL (0-0.50); Eosinophils % (auto) 0.8 %; Hematocrit (blood only) 38.1 % (42.0-52.0); Hemoglobin 11.7 g/dl (14.0-18.0); Immature Granulocytes # (auto) 0.04 K/uL (0.01-0.20); Immature Granulocytes % (auto) 0.3 %; Lymphocytes # (auto) 2.09 K/uL (1.2-3.4); Lymphocytes % (auto) 15.7 %; Mean Corpuscular Hemoglobin 23.3 pg (25.0-34.0); Mean Corpuscular Hgb Conc 30.7 g/dL (32.0-36.0); Mean Corpuscular Volume 75.7 fL (80.0-100.0); Mean Platelet Volume 9.2 fL (9.4-12.4); Monocytes # (auto) 1.06 K/uL (0.11-0.59); Neutrophils # (auto) 9.95 K/uL (1.40-6.50); Neutrophils % (auto) 74.8 %; Platelet Count 264 K/uL (130-400); RDW Coefficient of Variation 19.7 % (11.5-14.5); RDW Standard Deviation 52.2 fL (36.4-46.3); Red Blood Count 5.03 M/uL (4.70-6.10)
[2022-10-01 06:14] LABS: BUN Creatinine Ratio 15.7 (10-20); Calcium 8.3 mg/dl (8.6-10.3); Est GFR (African American) 86.6 ml/min; Est GFR (Non-African American) 74.7 ml/min; Potassium 4.5 mmol/L (3.5-5.1)
[2022-10-01 06:23] LABS: Troponin I High Sensitivity 783.9 pg/ml (0-20)
[2022-10-01] MEDS: NITROGLYCERIN SL 0.4 MG/TAB TAB SL PRN ×2 (06:38→09:29)
[2022-10-01] MEDS: INSULIN ASPART PER UNIT CHARGE SC SCH ×4 (06:51→20:03)
[2022-10-01] MEDS: LANTUS PER UNIT CHARGE SQ SCH ×2 (06:52→20:03)
[2022-10-01] MEDS ORDERED: MoRPHine SULFATE CR 100 MG TABCR PO SCH (08:00)
[2022-10-01] MEDS ORDERED: MoRPHine SULFATE CR 15 MG TABCR PO SCH (08:00)
[2022-10-01] MEDS: BUDESONIDE 0.5 MG/2 ML VIAL (PULMICORT) INH SCH ×2 (08:21→18:41)
[2022-10-01] MEDS: CLOPIDOGREL BISULFATE 75 MG TAB PO SCH (08:35)
[2022-10-01] MEDS: METOPROLOL SUCC 25MG EXT REL TAB PO SCH ×2 (08:35→20:01)
[2022-10-01] MEDS: LOSARTAN POTASSIUM 25 MG TAB PO SCH (08:36)
[2022-10-01] MEDS: NICOTINE 21 MG/24 HR TDSY TD SCH (08:36)
--- NOTE | 2022-10-01 08:37 | XRay Report ---
SINGLE VIEW CHEST CLINICAL HISTORY: Atypical chest pain. FINDINGS: An AP, portable, upright chest radiograph is compared to chest x-ray and chest CT dated 09/21. The heart is mildly enlarged. The pulmonary vasculature is noncongested. Chronic interstitial thickening is similar to previous. There is bibasilar scarring/atelectasis. The lungs and pleural [place] are otherwise clear. No pneumothorax is seen. The bony thorax is grossly intact. IMPRESSION: No acute cardiopulmonary abnormality. ACT 112: Negative or not required by law. Electronically signed by: Jeff Garcia M.D. 10/01/2022 8:36 AM
[2022-10-01] MEDS: MoRPHine SULFATE CR 60 MG TABCR PO SCH ×3 (08:39→20:00)
[2022-10-01] MEDS: MoRPHine SULFATE CR 15 MG TABCR PO SCH ×3 (08:52→20:00)
[2022-10-01] MEDS ORDERED: METOPROLOL SUCC 25MG EXT REL TAB PO SCH (09:00)
[2022-10-01] MEDS ORDERED: METOPROLOL TARTRATE 1 MG/ML VIAL IV ONE (09:33)
[2022-10-01] MEDS ORDERED: FUROSEMIDE 40 MG/4 ML VIAL IV ONE (09:36)
--- NOTE | 2022-10-01 10:46 | Cardiology Consultation ---
Date of Consultation October 01, 2022 Assessment & Plan (1) Non-ST elevation (NSTEMI) myocardial infarction: (2) Chronic diastolic CHF (congestive heart failure): (3) Hypertension: (4) Dyslipidemia: (5) Diabetes type 2, uncontrolled: (6) Chronic pain syndrome: (7) Tobacco abuse: Plan 61-year-old patient presents to the ER with ongoing chest discomfort. Troponin trending upward suggestive of NSTEMI. Repeat stat HS troponin up to 1200. Patient with ongoing chest discomfort suggestive of ischemia. Recent cardiac catheterization images reviewed demonstrating moderate ostial LAD stenosis and moderate in-stent stenosis of the proximal LAD. Patient treated with IV beta-judit, heparin, topical nitrates, as well as repeat doses of sublingual nitroglycerin. Recommend urgent cardiac catheterization due to ongoing symptoms and elevated troponin. Heart alert activated. Patient will be taken to the cardiac catheterization lab for coronary angiography. 63 minutes critical care time spent evaluating patient, reviewing data, formulating plan of care, and discussing with consulting physicians. History of Present Illness Reason for Consultation: NSTEMI Requesting Physician: Dr. Tenorio Attending Physician: Lobito Bustos MD History of Present Illness 61-year-old patient with history of LAD 02/2022 stent presents to ER with ongoing chest pain. Hospitalized 09/13/2022 with similar symptoms. Reports ongoing intermittent chest discomfort since hospital discharge over the past 2 weeks. Utilizing sublingual nitroglycerin regularly. Pain relieved with nitro up until about 3 days ago. Notes ongoing discomfort for approximately 12 hours. Troponin initially negative, however, trending upward this morning. Seen and examined at the bedside noting moderate chest heaviness with bilateral arm discomfort. Stat ECG performed demonstrating sinus rhythm with right bundle branch block. No ST elevation. Preliminary review of bedside 2D transthoracic echocardiogram demonstrating normal wall motion. Patient denies orthopnea, PND, or recent weight gain. Edema noted on exam, however, patient reports this is chronic. Utilizing furosemide 40 mg twice daily in the outpatient setting. CT angiogram of the chest performed on admission which is negative for PE or aortic dissection. Allergies Allergy/AdvReac Type Severity Reaction Status Date / Time clarithromycin Allergy Severe DAMAGED Verified 10/01/22 01:41 LIVER PER PT-REQUIRED HOSPITALIZATION latex Allergy Intermediate skin Verified 10/01/22 01:41 irritation/rash adhesive AdvReac Mild SKIN Verified 10/01/22 01:41 RASH-WITH SOME TAPES dulaglutide AdvReac Unknown hx Verified 10/01/22 02:13 pancreatitis exenatide AdvReac Unknown hx Verified 10/01/22 02:13 pancreatitis liraglutide AdvReac Unknown hx Verified 10/01/22 02:13 pancreatitis semaglutide AdvReac Unknown hx Verified 10/01/22 02:13 pancreatitis Uncoded Nonscreenable Allergy Intermediate PLASTICS: Uncoded 10/01/22 01:41 Allergen BLISTERS Home Medications Medication Instructions Recorded Confirmed Type albuterol sulfate 90 mcg/actuation 2 puff inhalation Q6H PRN Wheezing 06/26/18 10/01/22 History aerosol inhaler montelukast 10 mg tablet 10 mg PO HS PRN pt request 06/26/18 10/01/22 History nitroglycerin 0.4 mg sublingual 1 tab sublingual UD PRN CHESTPAIN 06/26/18 10/01/22 History tablet (Nitrostat) pantoprazole 40 mg tablet,delayed 40 mg PO BID PRN Heartburn 01/28/19 10/01/22 History release Oxygen Home #1 ea 04/30/19 10/01/22 History aspirin 81 mg tablet,delayed 81 mg PO HS 03/12/20 10/01/22 History release blood-glucose meter (OneTouch 08/14/20 10/01/22 History Verio Flex Meter) blood-glucose meter,continuous 02/03/21 10/01/22 History (Dexcom G6 Weapons Mechanic) blood-glucose sensor (Dexcom G6 02/03/21 10/01/22 History Sensor device) blood-glucose transmitter (Dexcom 02/03/21 10/01/22 History G6 Transmitter device) cetirizine 10 mg capsule (Zyrtec) 10 mg PO DAILY PRN Allergy Symptoms 03/05/21 10/01/22 History cholecalciferol (vitamin D3) 25 3,000 unit PO HS 03/05/21 10/01/22 History mcg (1,000 unit) capsule (Vitamin D3) hydroxyzine pamoate 25 mg capsule 25 mg PO Q8H PRN anxiety 5 days 06/16/21 10/01/22 Rx (Vistaril) #15 caps morphine 100 mg tablet,extended 100 mg PO TID@08,14,20 10/12/21 10/01/22 History release clopidogrel 75 mg tablet 75 mg PO QAM 05/16/22 10/01/22 History budesonide 0.5 mg/2 mL suspension 0.5 mg inhalation BID 06/13/22 10/01/22 History for nebulization linaclotide 145 mcg capsule 145 mcg PO DAILY PRN Constipation 08/01/22 10/01/22 History (Linzess) metoprolol succinate 25 mg 25 mg PO BID 08/01/22 10/01/22 History tablet,extended release 24 hr morphine 30 mg tablet,extended 30 mg PO Q8H PRN breakthrough pain 08/01/22 10/01/22 History release 6-10 blood sugar diagnostic #900 ea 08/19/22 10/01/22 Rx furosemide 20 mg tablet 40 mg PO BID 09/13/22 10/01/22 History insulin glargine U-300 conc 300 140 unit subcut QAM 09/13/22 10/01/22 History unit/mL (1.5 mL) subcutaneous pen (TouITM Softwareo SoloStar U-300 Insulin) morphine 15 mg immediate release 15 mg PO Q6 PRN Breakthrough Pain 09/13/22 10/01/22 History tablet 1-6 nicotine 21 mg/24 hr daily 1 patch transdermal DAILY 09/13/22 10/01/22 History transdermal patch insulin aspart U-100 100 unit/mL 0 unit subcut WM 10/01/22 10/01/22 History (3 mL) subcutaneous pen (Novolog FlexPen U-100 Insulin aspart) losartan 25 mg tablet 25 mg PO DAILY 10/01/22 10/01/22 History testosterone 2 pump topical HS 10/01/22 10/01/22 History doxycycline hyclate 100 mg capsule 100 mg PO BID 3 days #6 caps 10/02/22 Rx isosorbide mononitrate 30 mg 30 mg PO QAM #30 tabs 10/02/22 Rx tablet,extended release 24 hr rosuvastatin 5 mg tablet 5 mg PO QAM #30 tabs 10/02/22 Rx Patient History Medical History Bifascicular block Chronic back pain Chronic diastolic CHF (congestive heart failure) EF 63% 05/2021 echo Chronic kidney disease (CKD) COPD (chronic obstructive pulmonary disease) Degenerative disc disease Diabetes mellitus, type 2 IDDM Diverticular disease GERD (gastroesophageal reflux disease) History of acute pancreatitis RELATED TO A STONE OBSTRUCTION, 10/2017 History of basal cell carcinoma History of SCC (squamous cell carcinoma) of skin History of skin cancer S/P EXCISION OF SCALP Irritable bowel syndrome (IBS) Medical cannabis use Migraines Obesity On home oxygen therapy 3 lpm via n/c Polycythemia, secondary Post traumatic stress disorder Postlaminectomy syndrome of lumbosacral region Sleep apnea CPAP WITH 4 L/MIN HS. S/P UPPP. SOBOE (shortness of breath on exertion) Tachycardia Therapeutic opioid-induced constipation (OIC) Tinea pedis Transient ischemic attack (TIA) unsure of date - treated at [facility] -- 5+ years ago. Surgical History Fusion of spine MULTIPLE LUMBARX2 History of appendectomy History of back surgery total of 6 back surgeries. 2 failed surgeries History of cardiac cath 2016-NO STENTS History of cardiac cath 02/2022 with 1 stent (LAD) Dr Leach at [facility]. History of colonoscopy History of ERCP 11/2017 [facility] History of esophagogastroduodenoscopy (EGD) History of heart artery stent x1 stent (02/2022) History of repair of rotator cuff LEFT SHOULDER History of surgery RT ELBOW History of tonsillectomy History of uvulopalatopharyngoplasty FOR TREATMENT OF AR S/P cholecystectomy 07/02/1819 Grade 2 view, MAC 3, ETT 8. Family History Other COPD (chronic obstructive pulmonary disease) Cancer Diabetes Heart disease Hypertension Social History Smoking Status: Current every day smoker Tobacco Type: Cigarettes packs per day: 1; Cigarettes Per Day: 1 ppd; Second Hand Exposure: No; Do You Dip or Chew Tobacco: No; Hx Alcohol Use: No Hx Substance Use: Yes Last Used Substance: Just Prior to Arrival Last Used Substance Other:: Patient used marijuana pen last evening before coming to ER Substance Use Type Other:: MEDICAL MARIJUANA Preferred Language: Serbian Communication Ability: Effective Visual Impairment: No Limitations Back Roll Lathe Operator Required: No Beliefs That Will Affect Care: None marital status: Current Living Situation: Spouse Current Living Situation Comment: townhouse Feels Safe at Home: Yes Assistive Devices: Cane and Walker Review of Systems Review of Systems: All systems reviewed & are unremarkable except as noted in Subjective Physical Exam Constitutional: well developed, well nourished, + ill appearing and + obese Respiratory: no respiratory distress, no labored breathing and no retractions Auscultation: no crackles, no rales, no rhonchi and no wheezes Cardiovascular: Rate/Rhythm: regular rate and regular rhythm Heart Sounds: normal S1 and normal S2; no murmur Vessels: femoral pulses present and radial pulses present; no JVD and no carotid bruit Extremities: no edema Gastrointestinal (Abdomen): Inspection/Auscultation: normal bowel sounds; abdomen not distended Percussion/Palpation: abdomen soft; abdomen nontender and no guarding Neurologic: CN's II-XI intact bilaterally and moves all extremities; no focal motor deficits Psychiatric: Orientation: alert and oriented x 3 Results & Data Vital Signs (Past 12 Hours) Vital Signs Temp Pulse Pulse Resp BP BP Pulse Ox 10/01/22 09:34 92 H 135/72 10/01/22 08:22 98 H 20 95 10/01/22 07:09 10/01/22 06:25 37 C 106 H 18 164/51 H 94 10/01/22 05:30 97 H 19 95 10/01/22 05:30 143/68 H 10/01/22 05:15 97 H 23 94 10/01/22 05:15 133/63 10/01/22 05:00 98 H 17 96 10/01/22 05:00 139/69 10/01/22 04:45 132/92 10/01/22 04:45 96 H 21 99 10/01/22 04:30 97 H 18 97 10/01/22 04:30 143/70 H 10/01/22 04:18 95 H 20 97 10/01/22 04:18 137/66 10/01/22 04:00 102 H 20 96 10/01/22 03:45 95 H 19 95 10/01/22 03:45 131/66 10/01/22 04:17 102 H 10/01/22 03:30 98 H 18 122/65 94 10/01/22 03:15 99 H 21 125/70 95 10/01/22 03:06 96 09/30/22 23:50 108 H 10/01/22 00:45 117 H 19 94 10/01/22 00:30 112 H 23 94 10/01/22 00:15 101 H 17 95 10/01/22 00:00 111 H 22 95 09/30/22 23:53 110 H 22 94 09/30/22 23:53 141/84 H 09/30/22 23:50 111 H 24 09/30/22 23:57 09/30/22 23:54 37.7 C H 110 H 28 H 141/84 H 94 O2 Del Method O2 Flow Rate 10/01/22 09:34 10/01/22 08:22 Nasal Cannula 3 10/01/22 07:09 Nasal Cannula 3 10/01/22 06:25 Nasal Cannula 3 10/01/22 05:30 10/01/22 05:30 10/01/22 05:15 10/01/22 05:15 10/01/22 05:00 10/01/22 05:00 10/01/22 04:45 10/01/22 04:45 10/01/22 04:30 10/01/22 04:30 10/01/22 04:18 10/01/22 04:18 10/01/22 04:00 10/01/22 03:45 10/01/22 03:45 10/01/22 04:17 10/01/22 03:30 10/01/22 03:15 10/01/22 03:06 09/30/22 23:50 10/01/22 00:45 10/01/22 00:30 10/01/22 00:15 10/01/22 00:00 09/30/22 23:53 09/30/22 23:53 09/30/22 23:50 09/30/22 23:57 Room Air 09/30/22 23:54 Room Air Laboratory Results Cardiac Enzymes 10/01/22 10/01/22 10/01/22 Range/Units 00:08 00:09 02:20 AST 14 (13-39) U/L Troponin I High Sens 43.6 H 117.2 H* D (0-20) pg/ml B-Natriuretic Peptide 12 (0-100) pg/ml 10/01/22 10/01/22 Range/Units 05:26 09:39 AST (13-39) U/L Troponin I High Sens 783.9 H* D 1278.2 H* D (0-20) pg/ml B-Natriuretic Peptide (0-100) pg/ml Coagulation 10/01/22 10/01/22 Range/Units 00:09 02:20 APTT 23.9 (21.0-31.0) Seconds B-Natriuretic Peptide 12 (0-100) pg/ml CBC 10/01/22 10/01/22 Range/Units 00:08 05:26 WBC 15.17 H 13.30 H (4.8-10.8) K/ul RBC 5.72 5.03 (4.70-6.10) M/uL Hgb 13.4 L 11.7 L (14.0-18.0) g/dl Hct 42.6 38.1 L (42.0-52.0) % Plt Count 308 264 (130-400) K/uL Neut # (Auto) 11.64 H 9.95 H (1.40-6.50) K/uL Lymph # (Auto) 1.95 2.09 (1.2-3.4) K/uL [place] # (Auto) 1.28 H 1.06 H (0.11-0.59) K/uL Eos # (Auto) 0.17 0.11 (0-0.50) K/uL Baso # (Auto) 0.06 0.05 (0-0.2) K/uL Comprehensive Metabolic Panel 10/01/22 10/01/22 Range/Units 00:08 05:26 Sodium 136 134 L (136-145) mmol/L Potassium 4.3 4.5 (3.5-5.1) mmol/L Chloride 99 103 (98-107) mmol/L Carbon Dioxide 30 27 (21-32) mmol/L BUN 17 17 (6-23) mg/dl Creatinine 1.24 1.08 (0.6-1.4) mg/dl Glucose 315 H* 279 H (70-99(Fasting)) mg/dl Calcium 8.6 8.3 L (8.6-10.3) mg/dl AST 14 (13-39) U/L ALT 17 (7-52) U/L Alkaline Phosphatase 78 (34-104) U/L Total Protein 5.9 L (6.0-8.3) gm/dl Albumin 3.5 (3.4-5.0) gm/dl Intake and Output 09/30/22 10/01/22 10/01/22 22:59 06:59 14:59 Intake Total 1000 / 1000 180.083 / 180.083 Balance 1000 / 1000 180.083 / 180.083 Intake: IV 1000 / 1000 180.083 / 180.083 Albumin 25% 25 gm In 100 ml @ 100 / 100 50 mls/hr IV ONE ONE Rx#: [id number] Heparin Sodium/Dextrose 25,000 80.083 / 80.083 units In 500 ml @ 1,550 UNITS/ HR 31 mls/hr IV .Q16H8M [facility] Rx# :[id number] Sodium Chloride 0.9% 1000ML 1, 1000 / 1000 000 ml @ 999 mls/hr IV .Q1H1M [facility] Rx#:[id number] Other: Weight 116.9 kg Weight Measurement Method Built in [facility] Diagnostic Findings ECG: Sinus rhythm, right bundle branch block Preliminary review of bedside 2D transthoracic echocardiogram: Preserved LV systolic function. Left ventricular ejection fraction 60-64%. Mild mitral regurgitation. No regional wall motion abnormalities. (3) Hypertension Hypertension type: unspecified Qualified Code(s): I10 - Essential (primary) hypertension
[2022-10-01] MEDS ORDERED: fentaNYL citrate PF 100 MCG/2 ML VIAL ONE (10:55)
[2022-10-01] MEDS ORDERED: HEPARIN (PORCINE) 1000 UNIT/ML 10 ML (CATH LAB USE ONLY) ONE (10:55)
[2022-10-01] MEDS ORDERED: niCARdipine HCL INJ 2.5 MG/ML 10 ML AMP ONE (10:55)
[2022-10-01] MEDS ORDERED: MIDAZOLAM HCL 1 MG/ML 2ML VIAL ONE (10:56)
[2022-10-01] MEDS ORDERED: NITROGLYCERIN/D5W 100MCG/ML 20ML SYR ONE (10:56)
[2022-10-01] MEDS ORDERED: diphenhydrAMINE 50 MG/ML VIAL ONE (11:23)
[2022-10-01 11:26] LABS: Partial Thromboplastin Ratio 1.2; Partial Thromboplastin Time 34.7 Seconds (21.0-31.0)
--- NOTE | 2022-10-01 12:20 | Pre Anesthesia Assessment ---
Date of Service October 01, 2022 Pre Sedation Assessment Vital Signs Temp Pulse Pulse Resp BP BP Pulse Ox 10/01/22 11:23 10/01/22 09:34 92 H 135/72 10/01/22 08:22 98 H 20 95 10/01/22 07:09 10/01/22 06:25 37 C 106 H 18 164/51 H 94 10/01/22 05:30 97 H 19 95 10/01/22 05:30 143/68 H 10/01/22 05:15 97 H 23 94 10/01/22 05:15 133/63 10/01/22 05:00 98 H 17 96 10/01/22 05:00 139/69 10/01/22 04:45 132/92 10/01/22 04:45 96 H 21 99 10/01/22 04:30 97 H 18 97 10/01/22 04:30 143/70 H 10/01/22 04:18 95 H 20 97 10/01/22 04:18 137/66 10/01/22 04:00 102 H 20 96 10/01/22 03:45 95 H 19 95 10/01/22 03:45 131/66 10/01/22 04:17 102 H 10/01/22 03:30 98 H 18 122/65 94 10/01/22 03:15 99 H 21 125/70 95 10/01/22 03:06 96 09/30/22 23:50 108 H 10/01/22 00:45 117 H 19 94 10/01/22 00:30 112 H 23 94 10/01/22 00:15 101 H 17 95 10/01/22 00:00 111 H 22 95 09/30/22 23:53 110 H 22 94 09/30/22 23:53 141/84 H 09/30/22 23:50 111 H 24 09/30/22 23:57 09/30/22 23:54 37.7 C H 110 H 28 H 141/84 H 94 O2 Del Method O2 Flow Rate 10/01/22 11:23 Nasal Cannula 3 10/01/22 09:34 10/01/22 08:22 Nasal Cannula 3 10/01/22 07:09 Nasal Cannula 3 10/01/22 06:25 Nasal Cannula 3 10/01/22 05:30 10/01/22 05:30 10/01/22 05:15 10/01/22 05:15 10/01/22 05:00 10/01/22 05:00 10/01/22 04:45 10/01/22 04:45 10/01/22 04:30 10/01/22 04:30 10/01/22 04:18 10/01/22 04:18 10/01/22 04:00 10/01/22 03:45 10/01/22 03:45 10/01/22 04:17 10/01/22 03:30 10/01/22 03:15 10/01/22 03:06 09/30/22 23:50 10/01/22 00:45 10/01/22 00:30 10/01/22 00:15 10/01/22 00:00 09/30/22 23:53 09/30/22 23:53 09/30/22 23:50 09/30/22 23:57 Room Air 09/30/22 23:54 Room Air Cardiovascular RRR, no murmur, no edema (OBESITY, HTN) Respiratory normal respiratory effort, lungs clear to auscultation Pre-Sedation Airway Assessment Smoking Status: Current every day smoker Hx Sleep Apnea: No Mallampati Class: III asa 3 Notes The planned sedation has been discussed with the patient. Informed Consent was obtained. I have identified the patient, determined the appropriateness of sedation and have assessed the patient immediately prior to the procedure. All medicine(s) and interventions are by my order.
--- NOTE | 2022-10-01 12:23 | Cardiac Catheterization ---
ACC Data: Transportation Clerk Cardiac Status Clinical evaluation leading to the procedure CAD Presenation: Non STEMI Anginal Classification: CCS III Heart Failure: No Cardiogenic Shock within 24 Hours: No Cardiac Arrest within 24 Hours: No Imaging Studies Past 6 Months: Yes Coronary Anatomy Dominant: Left Left Main (% Stenosis): Normal LAD (% Stenosis): Ostial (30 to 40%), Proximal (In-stent restenosis 50 to 70%) and Mid (Mild) D1 (% Stenosis): Ostial (30%) D2 (% Stenosis): Normal Circumflex (% Stenosis): Normal OM1 (% Stenosis): Proximal (30 to 40%) OM2 (% Stenosis): Normal L PL1 (% Stenosis): Proximal (40 to 50%) L PDA (% Stenosis): Normal RCA (% Stenosis): Normal Diagnostic Physicians Name: Joseph Leach MD, PhD Closure Device Percutaneous Entry Location: Radial Closure Device: Radial Band Recommendations: Medical Therapy and/or Counseling and PCI without planned CABG PCI Indication: PCI for high risk Non-ZEYAD Lesion Segment Name: Proximal LAD Culprit Artery: Yes Stenosis Prior to Rx (%): 50 to 70% Chronic Total Occlusion: No FFR: Yes (IFR 0.52) Pre-Procedure MARIELENA Flow: 3 Previously Treated Lesion: Yes Lesion Complexity: Non-High/Non-C Lesion Length (mm): 20 mm Thrombus Present: No Bifurcation Lesion: No Guidewire Across Lesion: Yes Intraprocedure Events Significant Disection: No Perforation: No Cardiac Cath Procedure Full Procedure Date October 01, 2022 Pre-Procedure Diagnosis Pre-Procedure Diagnosis: Non STEMI AUC Score AUC Score: 07 Post-Procedure Diagnosis Post-Procedure Diagnosis: Severe CAD Procedure(s) Performed Procedure(s) Performed: Coronary Angiography, Drug Eluting Stent and Fractional Flow [employer] Joseph Leach MD, PhD Estimated Blood Loss Estimated Blood Loss: 10 ml Medication(s) Medication(s): Diphenhydramine, Heparin, Lidocaine 1%, Nicardipine, Nitroglycerin and Versed Summary of Findings Brief description: Patient was brought to the cardiac catheterization suite where he was shaved and prepped in a sterile fashion. Sedated using IV Versed and Benadryl. Soft tissues of the right groin were anesthetized using 2 mL of 1% Xylocaine. The right radial artery was accessed using a modified Seldinger technique and a 6 Estonian radial artery glide sheath was placed. Patient was provided anticoagulation with IV heparin and antispasmodic's including nicardipine and nitroglycerin. All catheters were advanced and exchanged over a 0.035 J-tip wire. Left coronary angiography in orthogonal views with a 5 Estonian [place] 4 diagnostic catheter. Right coronary angiography in orthogonal views with a 5 Estonian [place] 4 diagnostic catheter. Diagnostic catheters were removed. IFR analysis was undertaken using a 6 Estonian EBU 3.0 guide catheter. ACT was checked and additional heparin provided as needed to maintain therapeutic anticoagulation. The Omni wire was advanced through the guide catheter and positioned with his transducer just beyond the distal catheter tip. After normal saline flush, pressures were equalized. The Omni wire was then advanced beyond the lesion in the LAD. The IFR was sampled and found to be significantly abnormal. Decision was made to proceed with PCI. Using a BMW reversal guidewire and exchanged for the Omni wire stent implantation was then performed. PTCA was performed initially with a 2.5 x 12 mm balloon up to 14 angela multiple times. Predilatation was also performed using a 2.75 x 12 mm noncompliant balloon and multiple inflations. Stent implantation was with a 2.75 x 23 mm tylor point drug-eluting stent placed within but just overhanging each of the edges of the old stent. Final implant diameter 2.9 mm. Stent balloon was removed. Angiography was performed in orthogonal views. The guide catheter was removed after the guidewire was removed. Radial artery sheath was removed. Hemostasis was obtained using the TR band. Patient was subsequently returned to the ICU. This ended the case. Coronary angiography findings: [id number] bifurcating into LAD and circumflex. Mild luminal irregularities. LAD- Large caliber and transapical. Ostial stenosis of 30 to 40% and then there is a proximal stent with in-stent restenosis appearing 50 to 70% on today's angiography. A relatively large first diagonal has ostial 30% stenosis and then is essentially normal. There is a smaller caliber second diagonal without significant disease. The mid and distal LAD have mild scattered plaques. LCx-this is a large caliber and dominant vessel traveling in the AV groove. Proximal segment has mild luminal irregularities. There is a large caliber OM1 which has proximal 30 to 40% narrowing. The mid segment gives rise to an atrial branch as well as a small caliber OM 2. The mid segment has mild luminal irregularities. The distal segment gives rise to a large caliber branching posterolateral and a large caliber PDA. Distal vessel has no disease in the AV groove, the posterior lateral branch has a proximal 40 to 50% narrowing in the PDA has no significant disease. RCA- This is small in caliber and nondominant without significant disease. IFR analysis of proximal LAD in-stent restenosis: IFR equals 0.52, therefore, this is hemodynamically significant. PCI of proximal LAD in-stent restenosis: There is 0% residual stenosis post PCI There is residual ostial LAD stenosis appearing 40% post PCI There is no evidence of dissection or perforation post PCI MARIELENA-3 flow post PCI Summary: 1. Angiographically borderline in-stent restenosis in the proximal LAD which is determined by IFR analysis to be hemodynamically significant. 2. Successful PCI with implantation of a Skypoint drug-eluting stent in the LAD for in-stent restenosis. 3. No complications post PCI 4. Highly recommend that the patient comply with all cardiac medications including not only his aspirin and Plavix but also his statin and blood pressure medications. 5. We will add long-acting nitrate for probable microvascular dysfunction/angina. 6. I chose to utilize a different brand of stent given that he developed in-s tent restenosis relatively soon after initial stent implantation. Furthermore, the second stent was left at a larger diameter than the initial stent which may help with prevention of recurrent in-stent restenosis. However, it does make the ostial stenosis appear angiographically slightly worse. There is a significant step up to the stent diameter. Finally, if the patient were to develop recurrent in-stent restenosis then in all likelihood this would be the inappropriate revascularization strategy and a bypass would be recommended at that time. Hemodynamics Rest Ao:: 136/83 mmHg Final Ao: 138/74 mmHg LV: Not performed Recommendations Recommendations: Medical Therapy and/or Counseling and PCI without planned CABG Radiation Exposure (mGy) 2330 mGy, fluoroscopy time 9.2 minutes Contrast (mls) 170 mL Anesthesia 2 mg IV Versed, 25 mg IV Benadryl Procedural Complication(s) None Disposition ICU I attest to the content of the Intraoperative Record and any orders documented therein. Any exceptions are noted below. [employer] Card Cath Procedure Codes Cardiac Catheterization Procedure 1: Cardiovascular Cath Procedures: 59169 Coronaries Procedure 2: Cardiovascular Cath Procedures: 27396 (Doppler) Pressure Wire Moderate Sedation Procedure 1: Sedation/Anesthesia: 82766 Mod Sedation by the same physician;Init15 Min Child Age 5 & Up (Initial 15 min, start time 1124) Procedure 2: Sedation/Anesthesia: 43722 Mod Sedation by the same physician; Ea [id number] Minutes (Additional 21 min, end time 12:00) Stenting Procedure 1: Cardiovascular Stent Procedures: 40114 Perc transcatheter placement of intracoronary stent(s), with ang (LAD) PG Care Time/CCT Total # of Minutes Spent Total Time Spent with Patient: Total time spent is greater than 50% in coordination of care (as documented) at patient's floor/unit and/or counseling patient:
[2022-10-01] MEDS ORDERED: ISOSORBIDE MONO EXTENDED REL 30 MG TABCR PO ONE (12:30)
--- NOTE | 2022-10-01 13:17 | Electrocardiogram Report ---
Test Reason : Blood Pressure : / mmHG Vent. Rate : 110 BPM Atrial Rate : 110 BPM P-R Int : 158 ms QRS Dur : 124 ms QT Int : 342 ms P-R-T Axes : 069 -79 036 degrees QTc Int : 462 ms Sinus tachycardia Right bundle branch block Left anterior fascicular block Bifascicular block Abnormal ECG When compared with ECG of 21-SEP-2022 15:02, Minimal criteria for Inferior infarct are no longer Present Confirmed by Herbert Mahoney ([id number]) on 10/01/2022 1:17:31 PM Referred By: REFERRED SELF Confirmed By:Herbert Mahoney
--- NOTE | 2022-10-01 13:35 | Electrocardiogram Report ---
Test Reason : Blood Pressure : / mmHG Vent. Rate : 093 BPM Atrial Rate : 093 BPM P-R Int : 206 ms QRS Dur : 130 ms QT Int : 382 ms P-R-T Axes : 067 -46 005 degrees QTc Int : 474 ms Normal sinus rhythm Right bundle branch block Left anterior fascicular block Bifascicular block Abnormal ECG When compared with ECG of 01-OCT-2022 06:18, (unconfirmed) No significant change Confirmed by Herbert Mahoney ([id number]) on 10/01/2022 1:34:55 PM Referred By: REFERRED SELF Confirmed By:Herbert Mahoney
--- NOTE | 2022-10-01 14:14 | Hospitalist Progress Note ---
Date of Service October 01, 2022 Assessment & Plan (1) Non-ST elevation (NSTEMI) myocardial infarction: (2) CAD (coronary artery disease): (3) COPD (chronic obstructive pulmonary disease): (4) Type 2 diabetes mellitus with insulin therapy: (5) Hypertension: (6) Chronic diastolic CHF (congestive heart failure): Plan 61-year-old male with history of CAD, diabetes, hypertension, COPD, CHF presented to ED with recurrent chest pain requiring sublingual nitroglycerin. NSTEMI- troponin trend 117->783->1278. Seen by cardiology and underwent cardiac cath today which showed hemodynamically significant in-stent restenosis of proximal LAD and were successfully stented with no complications. Echo with EF 60-65%, grade 1 diastolic dysfunction, mild MR. -Continue dual antiplatelet, statin, beta-judit -Imdur was added Summary of cardiac cath findings per cardiology: 1. Angiographically borderline in-stent restenosis in the proximal LAD which is determined by IFR analysis to be hemodynamically significant. 2. Successful PCI with implantation of a [employer] drug-eluting stent in the LAD for in-stent restenosis. 3. No complications post PCI 4. Highly recommend that the patient comply with all cardiac medications including not only his aspirin and Plavix but also his statin and blood pressure medications. 5. We will add long-acting nitrate for probable microvascular dysfunction/angina. 6. I chose to utilize a different brand of stent given that he developed in- stent restenosis relatively soon after initial stent implantation. Furthermore, the second stent was left at a larger diameter than the initial stent which may help with prevention of recurrent in-stent restenosis. However, it does make the ostial stenosis appear angiographically slightly worse. There is a significant step up to the stent diameter. Finally, if the patient were to develop recurrent in-stent restenosis then in all likelihood this would be the inappropriate revascularization strategy and a bypass would be recommended at that time. CAD-as above Diabetes mellitus type 2 on insulin- A1c 7.8. Continue Lantus, prandial insulin- adjust as indicated Hypertension-on losartan and metoprolol COPD with suspected bronchitis-CTA chest with no PE or pneumonia. Patient was started on doxycycline on admission, on nebs Chronic back pain/opiate dependence- had multiple surgeries in past. Follows Dr Bell in [place] for pain management. On high dose MS Contin 3 times daily Tobacco use disorder- on nicoderm patch Leukocytosis-likely reactive. Recheck in a.m. AR on CPAP DVT prophylaxis-subcu Lovenox Disposition-anticipate discharge tomorrow if remains stable Admission and Anticipated Discharge Date Admission Date: October 01, 2022 Subjective Patient was seen and examined at bedside. During encounter, he was waiting for the cardiac cath and stated he still had chest pain with exertion. Stated nitroglycerin pills were helping after recent discharge but over the past few days. He also had started on rosuvastatin a week ago and losartan was added. He denies any fever, chills, shortness of breath, nausea or vomiting Review of Systems Review of Systems: All systems reviewed & are unremarkable except as noted in Subjective Physical Exam Physical Exam: General: Sitting comfortably at bedside, not in distress, on room air HEENT: EOMI, DULCE MARIA, MMM Chest: Clear breath sounds bilaterally, no wheezes or crackles CVS: Regular rate and rhythm, normal heart sounds, no murmur Abdomen: Soft, non tender, not distended, normal bowel sounds Neuro: Awake, alert, oriented, conversing well, non focal Extremities: No cyanosis, clubbing or edema Results & Data Results & Data Vital Signs (Past 12 Hours) Vital Signs Temp Pulse Pulse Resp BP BP Pulse Ox 10/01/22 13:00 90 17 99 10/01/22 13:00 169/79 H 10/01/22 12:45 86 18 97 10/01/22 12:45 153/75 H 10/01/22 12:30 93 H 16 97 10/01/22 12:30 158/76 H 10/01/22 12:16 90 14 95 10/01/22 12:16 163/77 H 10/01/22 12:15 93 H 15 10/01/22 11:23 10/01/22 09:34 92 H 135/72 10/01/22 08:22 98 H 20 95 10/01/22 07:09 10/01/22 06:25 37 C 106 H 18 164/51 H 94 10/01/22 05:30 97 H 19 95 10/01/22 05:30 143/68 H 10/01/22 05:15 97 H 23 94 10/01/22 05:15 133/63 10/01/22 05:00 98 H 17 96 10/01/22 05:00 139/69 06/17/23 04:45 132/92 10/01/22 04:45 96 H 21 99 10/01/22 04:30 97 H 18 97 10/01/22 04:30 143/70 H 10/01/22 04:18 95 H 20 97 10/01/22 04:18 137/66 10/01/22 04:00 102 H 20 96 10/01/22 03:45 95 H 19 95 10/01/22 03:45 131/66 10/01/22 04:17 102 H 10/01/22 03:30 98 H 18 122/65 94 10/01/22 03:15 99 H 21 125/70 95 10/01/22 03:06 96 O2 Del Method O2 Flow Rate 10/01/22 13:00 10/01/22 13:00 10/01/22 12:45 10/01/22 12:45 10/01/22 12:30 10/01/22 12:30 10/01/22 12:16 10/01/22 12:16 10/01/22 12:15 10/01/22 11:23 Nasal Cannula 3 10/01/22 09:34 10/01/22 08:22 Nasal Cannula 3 10/01/22 07:09 Nasal Cannula 3 10/01/22 06:25 Nasal Cannula 3 10/01/22 05:30 10/01/22 05:30 10/01/22 05:15 10/01/22 05:15 10/01/22 05:00 10/01/22 05:00 10/01/22 04:45 10/01/22 04:45 10/01/22 04:30 10/01/22 04:30 10/01/22 04:18 10/01/22 04:18 10/01/22 04:00 10/01/22 03:45 10/01/22 03:45 10/01/22 04:17 10/01/22 03:30 10/01/22 03:15 10/01/22 03:06 Laboratory Results Short CBC 10/01/22 10/01/22 Range/Units 00:08 05:26 WBC 15.17 H 13.30 H (4.8-10.8) K/ul Hgb 13.4 L 11.7 L (14.0-18.0) g/dl Hct 42.6 38.1 L (42.0-52.0) % Plt Count 308 264 (130-400) K/uL BMP 10/01/22 10/01/22 00:08 05:26 Sodium 136 134 L Potassium 4.3 4.5 Chloride 99 103 Carbon Dioxide 30 27 BUN 17 17 Creatinine 1.24 1.08 Glucose 315 H* 279 H Calcium 8.6 8.3 L Liver Function 10/01/22 Range/Units 00:08 Total Bilirubin 0.3 (0.2-1.0) mg/dl AST 14 (13-39) U/L ALT 17 (7-52) U/L Alkaline Phosphatase 78 (34-104) U/L Albumin 3.5 (3.4-5.0) gm/dl Urine 10/01/22 Range/Units 00:10 Urine Color Yellow Urine Appearance Cloudy A (Clear) Urine pH 7.0 (4.5-7.5) Ur Specific [place] 1.017 (1.000-1.030) Urine Protein 3+ H (Negative) Urine Glucose (UA) 3+ H (Negative) Medications Administered Chest X-Ray 10/01/22 00:00 SINGLE VIEW CHEST CLINICAL HISTORY: Atypical chest pain. FINDINGS: An AP, portable, upright chest radiograph is compared to chest x-ray and chest CT dated 09/21/2022. The heart is mildly enlarged. The pulmonary vasculature is noncongested. Chronic interstitial thickening is similar to previous. There is bibasilar scarring/atelectasis. The lungs and pleural spaces are otherwise clear. No pneumothorax is seen. The bony thorax is grossly intact. IMPRESSION: No acute cardiopulmonary abnormality. ACT 112: Negative or not required by law. Electronically signed by: Jeff Garcia M.D. 10/01/2022 8:36 AM Chest CTA 10/01/22 02:03 Exam(s): CTA CHEST IV Amt: 120ML OF OPTIRAY 320 EXAM: CT Angiography Chest With Intravenous Contrast CLINICAL HISTORY: Reason for exam: pleuritic cp. TECHNIQUE: Axial computed tomographic angiography images of the chest with intravenous contrast. CTDI is 52.15 mGy and DLP is 888.13 mGy-cm. Automated exposure control was utilized for the study. A dose lowering technique was utilized adhering to the principles of ALARA. MIP reconstructed images were created and reviewed. COMPARISON: Previous CT September 21, 2022. FINDINGS: Pulmonary arteries: Unremarkable. No pulmonary embolism. Aorta: No acute findings. No thoracic aortic aneurysm. Lungs: Unremarkable. No mass. No consolidation. Pleural space: Unremarkable. No significant effusion. No pneumothorax. Heart: Unremarkable. No cardiomegaly. No significant pericardial effusion. No evidence of RV dysfunction. Bones/joints: No acute fracture. No dislocation. Soft tissues: Unremarkable. Lymph nodes: Unremarkable. No enlarged lymph nodes. IMPRESSION: No evidence of pulmonary emboli or acute cardiopulmonary process. Electronically signed by: Danial Osborne MD 10/01/22 03:16 AM (2) CAD (coronary artery disease) Associated angina: without angina Coronary Disease-Associated Artery/Lesion type: unspecified vessel or lesion type [place] vs. transplanted heart: [place] heart Qualified Code(s): I25.10 - Atherosclerotic heart disease of [place] coronary artery without angina pectoris (5) Hypertension Hypertension type: unspecified Qualified Code(s): I10 - Essential (primary) hypertension
[2022-10-01] MEDS: LORazepam 0.5 MG TAB PO PRN (16:33)
[2022-10-01] MEDS: ALBUT/IPRATROP 3MG/0.5MG NEB 3 ML VIAL NEB SCH (18:41)
[2022-10-01] MEDS ORDERED: NALOXONE HCL 0.4 MG/1 ML VIAL/CARP IV PRN (19:48)
[2022-10-01] MEDS: PANTOprazole 40 MG TAB PO PRN (20:01)
[2022-10-01] MEDS: DOXYCYCLINE HYCLATE 100 MG CAP PO SCH (20:02)
[2022-10-01] MEDS ORDERED: ASPIRIN 81 MG ECTAB PO SCH (21:00)
[2022-10-02] MEDS ORDERED: MoRPHine SULFATE 4 MG/ML 1 ML CARP\\VIAL IV PRN (05:55)
[2022-10-02] MEDS: LORazepam 0.5 MG TAB PO PRN (05:58)
[2022-10-02 06:16] LABS: Hematocrit (blood only) 39.7 % (42.0-52.0); Hemoglobin 12.4 g/dl (14.0-18.0); Mean Corpuscular Hemoglobin 23.2 pg (25.0-34.0); Mean Corpuscular Hgb Conc 31.2 g/dL (32.0-36.0); Mean Corpuscular Volume 74.3 fL (80.0-100.0); Platelet Count 245 K/uL (130-400); RDW Coefficient of Variation 20.2 % (11.5-14.5); RDW Standard Deviation 52.6 fL (36.4-46.3); Red Blood Count 5.34 M/uL (4.70-6.10); White Blood Count 10.14 K/ul (4.8-10.8)
[2022-10-02 06:37] LABS: BUN Creatinine Ratio 16.5 (10-20); Calcium 9.1 mg/dl (8.6-10.3); Chol HDL Ratio 3.7 (0-5); Creatinine Clr Calc Pharmacy 76.3 ml/min; Est GFR (African American) 71.2 ml/min; Est GFR (Non-African American) 61.4 ml/min; Potassium 4.5 mmol/L (3.5-5.1)
[2022-10-02] MEDS: ALBUT/IPRATROP 3MG/0.5MG NEB 3 ML VIAL NEB SCH (06:58)
[2022-10-02] MEDS: BUDESONIDE 0.5 MG/2 ML VIAL (PULMICORT) INH SCH (06:58)
[2022-10-02] MEDS: MoRPHine SULFATE CR 60 MG TABCR PO SCH (08:08)
[2022-10-02] MEDS: LOSARTAN POTASSIUM 25 MG TAB PO SCH (08:08)
[2022-10-02] MEDS: NICOTINE 21 MG/24 HR TDSY TD SCH (08:08)
[2022-10-02] MEDS: MoRPHine SULFATE CR 15 MG TABCR PO SCH (08:08)
[2022-10-02] MEDS: DOXYCYCLINE HYCLATE 100 MG CAP PO SCH (08:09)
[2022-10-02] MEDS: CLOPIDOGREL BISULFATE 75 MG TAB PO SCH (08:09)
[2022-10-02] MEDS: PANTOprazole 40 MG TAB PO PRN (08:09)
[2022-10-02] MEDS: METOPROLOL SUCC 25MG EXT REL TAB PO SCH (08:09)
[2022-10-02] MEDS: INSULIN ASPART PER UNIT CHARGE SC SCH (08:23)
[2022-10-02] MEDS: LANTUS PER UNIT CHARGE SQ SCH (08:23)
[2022-10-02] MEDS ORDERED: ROSUVASTATIN CALCIUM 5 MG TAB PO SCH (09:00)
[2022-10-02] MEDS ORDERED: ISOSORBIDE MONO EXTENDED REL 30 MG TABCR PO SCH (09:00)
--- NOTE | 2022-10-02 10:23 | Discharge Summary ---
Date of Service October 02, 2022 Admission HPI Per Admitting Provider History obtained from patient and records. Medical history significant for chronic diastolic heart failure (EF 60 to 65%, TTE 2022 ), CAD status post stent, hypertension, hyperlipidemia/statin intolerance, DM2 insulin-requiring, chronic back pain on narcotics, asthma/COPD, AR status post surgery on CPAP, GERD, skin cancer postsurgery, hypogonadism on testosterone Rx, hx secondary polycythemia intermittent outpatie nt phlebotomy as per records, chronic anemia (baseline hemoglobin of 13), ongoing tobacco abuse Last confinement September 13-2022 for multifactorial chest pain. Patent prior stent with mild in-stent restenosis on diagnostic cardiac catheterization. Medical management recommended. Daily anginal attacks since discharge from the hospital relieved by nitroglycerin. Some fluid retention. Patient claims to be compliant with home medications. Started smoking again at home last week. Patient seen at ER last 09/21/2022 for evaluation. SBP 200s at the ER. CTA chest negative for PE. RUE venous Dopplers negative for DVT. Patient seen on follow-up at [facility] cardiology office the following day. Concern for uncontrolled hypertension and hypervolemia from right-sided heart failure. Losartan reintroduced to patient's BP regimen. Patient seen at PCPs office on follow-up visit 4 days ago. Provider to notify cardiology of recurrent chest pain symptoms. Outpatient arterial LE Dopplers contemplated for upper leg pain/possible claudication. Yesterday, patient noted cough productive of junky brown sputum. Worsening anginal attack with shortness of breath and radiation to both arms partially relieved by nitroglycerin. No unusual headaches or belly pain. Arms and legs more swollen than usual with some weight gain. Cefepime and Nitropaste administered at the ER. Patient currently more comfortable but not chest pain free. MEDICAL HISTORY: As above. SURGERIES: He has had back surgery, appendectomy, tonsillectomy, uvulectomy for sleep apnea, shoulder surgery, elbow surgery, cholecystectomy FAMILY HISTORY: COPD. Heart disease PERSONAL AND SOCIAL HISTORY: One pack daily. No intake of alcoholic beverages. Disabled. Admission Exam Per Admitting Provider GENERAL: Anxious, obese, slightly uncomfortable, no respiratory distress SKIN: Plethoric, warm HEENT: [place] palpebral conjunctivae, no ptosis, moist buccal mucosa NECK : Supple, short neck, no tenderness CHEST : Decreased breath sounds, scattered expiratory wheezes, anterior chest wall tenderness HEART : Tachycardic, no obvious murmurs ABDOMEN: Some distention, nontender BACK : Chronic low back tenderness EXTREMITIES : Minimal LE swelling, no LE tenderness, minimal forearm swelling bilaterally, no other conspicuous deformities noted NEUROLOGIC : Coherent, no facial asymmetry, no other gross focality Principal Diagnosis NSTEMI status post BYRON Discharge Exam General: Sitting comfortably at bedside, not in distress, on room air HEENT: EOMI, DULCE MARIA, MMM Chest: Clear breath sounds bilaterally, no wheezes or crackles CVS: Regular rate and rhythm, normal heart sounds, no murmur Abdomen: Soft, non tender, not distended, normal bowel sounds Neuro: Awake, alert, oriented, conversing well, non focal Extremities: No cyanosis, clubbing or edema Discharge Data Allergies Allergy/AdvReac Type Severity Reaction Status Date / Time clarithromycin Allergy Severe DAMAGED Verified 10/01/22 01:41 LIVER PER PT-REQUIRED HOSPITALIZATION latex Allergy Intermediate skin Verified 10/01/22 01:41 irritation/rash adhesive AdvReac Mild SKIN Verified 10/01/22 01:41 RASH-WITH SOME TAPES dulaglutide AdvReac Unknown hx Verified 10/01/22 02:13 pancreatitis exenatide AdvReac Unknown hx Verified 10/01/22 02:13 pancreatitis liraglutide AdvReac Unknown hx Verified 10/01/22 02:13 pancreatitis semaglutide AdvReac Unknown hx Verified 10/01/22 02:13 pancreatitis Uncoded Nonscreenable Allergy Intermediate PLASTICS: Uncoded 10/01/22 01:41 Allergen BLISTERS Consultations 10/01/22 01:43 ED Decision to Admit Stat 10/01/22 06:00 Consult Cardiology Routine Procedures Performed Operation Date: 10/01/22 11:00 Actual Procedures p Cineradiography w/Routine Exam - Joseph Leach MD, PhD p Drug Eluting Stent SGl Vessel - Joseph Leach MD, PhD s Fraction Flow [place] SGL Ves - Joseph Leach MD, PhD Ordered Studies 10/01/22 02:03 CT angio chest PE protocol Stat 10/01/22 11:00 CL Cath Imgs for PACS use only Routine Laboratory Results WBC 10.14 K/ul (4.8-10.8) 10/02/22 05:42 RBC 5.34 M/uL (4.70-6.10) 10/02/22 05:42 Hgb 12.4 g/dl (14.0-18.0) L 10/02/22 05:42 Hct 39.7 % (42.0-52.0) L 10/02/22 05:42 MCV 74.3 fL (80.0-100.0) L 10/02/22 05:42 MCH 23.2 pg (25.0-34.0) L 10/02/22 05:42 MCHC 31.2 g/dL (32.0-36.0) L 10/02/22 05:42 RDW Std Deviation 52.6 fL (36.4-46.3) H 10/02/22 05:42 RDW Coeff of Ben 20.2 % (11.5-14.5) H 10/02/22 05:42 Plt Count 245 K/uL (130-400) 10/02/22 05:42 MPV 9.0 fL (9.4-12.4) L 10/02/22 05:42 Immature Gran % (Auto) 0.3 % 10/01/22 05:26 Neut % (Auto) 74.8 % 10/01/22 05:26 Lymph % (Auto) 15.7 % 10/01/22 05:26 [place] % (Auto) 8.0 % 10/01/22 05:26 Eos % (Auto) 0.8 % 10/01/22 05:26 Baso % (Auto) 0.4 % 10/01/22 05:26 Neut # (Auto) 9.95 K/uL (1.40-6.50) H 10/01/22 05:26 Lymph # (Auto) 2.09 K/uL (1.2-3.4) 10/01/22 05:26 [place] # (Auto) 1.06 K/uL (0.11-0.59) H 10/01/22 05:26 Eos # (Auto) 0.11 K/uL (0-0.50) 10/01/22 05:26 Baso # (Auto) 0.05 K/uL (0-0.2) 10/01/22 05:26 Immature Gran # (Auto) 0.04 K/uL (0.01-0.20) 10/01/22 05:26 ESR 43 mm/hr (0-20) H 10/01/22 00:08 APTT 34.7 Seconds (21.0-31.0) H 10/01/22 10:12 PTT Ratio 1.2 10/01/22 10:12 Activ Coag Time Kaolin 227 SECONDS (94-140) H 10/01/22 11:51 Sodium 134 mmol/L (136-145) L 10/02/22 05:42 Potassium 4.5 mmol/L (3.5-5.1) 10/02/22 05:42 Chloride 101 mmol/L (98-107) 10/02/22 05:42 Carbon Dioxide 28 mmol/L (21-32) 10/02/22 05:42 Anion Gap 5 (3-11) 10/02/22 05:42 BUN 21 mg/dl (6-23) 10/02/22 05:42 Creatinine 1.27 mg/dl (0.6-1.4) 10/02/22 05:42 Est Cr Clr Drug Dosing 76.3 ml/min 10/02/22 05:42 Est GFR ( Amer) 71.2 ml/min 10/02/22 05:42 Est GFR (Non-Af Amer) 61.4 ml/min 10/02/22 05:42 BUN/Creatinine Ratio 16.5 (10-20) 10/02/22 05:42 Glucose 236 mg/dl (70-99(Fasting)) H 10/02/22 05:42 POC Glucose 224 mg/dl (70-99) H 10/02/22 08:02 Lactate 1.3 mmol/L (0.4-2.0) 10/01/22 05:26 Calcium 9.1 mg/dl (8.6-10.3) 10/02/22 05:42 Magnesium 1.8 mg/dl (1.7-2.4) 10/01/22 00:08 Total Bilirubin 0.3 mg/dl (0.2-1.0) 10/01/22 00:08 AST 14 U/L (13-39) 10/01/22 00:08 ALT 17 U/L (7-52) 10/01/22 00:08 Alkaline Phosphatase 78 U/L (34-104) 10/01/22 00:08 Troponin I High Sens 1278.2 pg/ml (0-20) H* D 10/01/22 09:39 C-Reactive Protein 0.60 mg/dl (0-0.5) H 10/01/22 02:20 B-Natriuretic Peptide 12 pg/ml (0-100) 10/01/22 00:09 Total Protein 5.9 gm/dl (6.0-8.3) L 10/01/22 00:08 Albumin 3.5 gm/dl (3.4-5.0) 10/01/22 00:08 Globulin 2.4 gm/dl (2.5-4.0) L 10/01/22 00:08 Albumin/Globulin Ratio 1.5 (0.9-2) 10/01/22 00:08 Triglycerides 247 mg/dl (0-150) H 10/02/22 05:42 Cholesterol 152 mg/dl (0-200) 10/02/22 05:42 LDL Cholesterol, Calc 62 mg/dl 10/02/22 05:42 VLDL Cholesterol, Calc 49 mg/dl (0-30) H 10/02/22 05:42 HDL Cholesterol 41 mg/dl 10/02/22 05:42 Cholesterol/HDL Ratio 3.7 (0-5) 10/02/22 05:42 Lipase 27 U/L (11-82) 10/01/22 00:08 Procalcitonin 0.06 ng/ml (0-0.5) 10/01/22 00:08 Urine Color Yellow 10/01/22 00:10 Urine Appearance Cloudy (Clear) A 10/01/22 00:10 Urine pH 7.0 (4.5-7.5) 10/01/22 00:10 Ur Specific [employer] 1.017 (1.000-1.030) 10/01/22 00:10 Urine Protein 3+ (Negative) H 10/01/22 00:10 Urine Glucose (UA) 3+ (Negative) H 10/01/22 00:10 Urine Ketones Negative (Negative) 10/01/22 00:10 Urine Blood Negative (Negative) 10/01/22 00:10 Urine Nitrite Negative (Negative) 10/01/22 00:10 Urine Bilirubin Negative (Negative) 10/01/22 00:10 Urine Urobilinogen Negative (Negative) 10/01/22 00:10 Ur Leukocyte Esterase Negative (Negative) 10/01/22 00:10 Urine WBC (Auto) 0 /hpf (0-5) 10/01/22 00:10 Urine RBC (Auto) 0-4 /hpf (0-4) 10/01/22 00:10 U Hyaline Cast (Auto) 1-5 /lpf (0-5) 10/01/22 00:10 U Epithel Cells (Auto) 0-5 /lpf (0-5) 10/01/22 00:10 Urine Bacteria (Auto) Negative (Negative) 10/01/22 00:10 Nasal Screen MRSA (PCR) Negative (Negative) 10/01/22 06:15 Adenovirus (PCR) Not Detected (NotDetected) 10/01/22 00:23 B. pertussis DNA (PCR) Not Detected (NotDetected) 10/01/22 00:23 B.parapertussis DNA PCR Not Detected (NotDetected) 10/01/22 00:23 C. pneumoniae DNA (PCR) Not Detected (NotDetected) 10/01/22 00:23 Coronavirus OC43 (PCR) Not Detected (NotDetected) 10/01/22 00:23 Coronavirus HKU1 (PCR) Not Detected (NotDetected) 10/01/22 00:23 Coronavirus 229E (PCR) Not Detected (NotDetected) 10/01/22 00:23 SARS-CoV-2 (PCR) Not Detected (NotDetected) 10/01/22 00:23 Coronavirus NL63 (PCR) Not Detected (NotDetected) 10/01/22 00:23 Human Metapneumovir PCR Not Detected (NotDetected) 10/01/22 00:23 Influenza Type A (PCR) Not Detected (NotDetected) 10/01/22 00:23 Influenza Type B (PCR) Not Detected (NotDetected) 10/01/22 00:23 M. pneumoniae (PCR) Not Detected (NotDetected) 10/01/22 00:23 Parainfluenza 1 (PCR) Not Detected (NotDetected) 10/01/22 00:23 Parainfluenza 2 (PCR) Not Detected (NotDetected) 10/01/22 00:23 Parainfluenza 3 (PCR) Not Detected (NotDetected) 10/01/22 00:23 Parainfluenza 4 (PCR) Not Detected (NotDetected) 10/01/22 00:23 RSV (PCR) Not Detected (NotDetected) 10/01/22 00:23 Entero/Rhino (PCR) Not Detected (NotDetected) 10/01/22 00:23 Impressions Chest X-Ray 10/01/22 00:00 SINGLE VIEW CHEST CLINICAL HISTORY: Atypical chest pain. FINDINGS: An AP, portable, upright chest radiograph is compared to chest x-ray and chest CT dated 09/21/2022. The heart is mildly enlarged. The pulmonary vasculature is noncongested. Chronic interstitial thickening is similar to previous. There is bibasilar scarring/atelectasis. The lungs and pleural spaces are otherwise clear. No pneumothorax is seen. The bony thorax is grossly intact. IMPRESSION: No acute cardiopulmonary abnormality. ACT 112: Negative or not required by law. Electronically signed by: Jeff Garcia M.D. 10/01/2022 8:36 AM Chest CTA 10/01/22 02:03 Exam(s): CTA CHEST IV Amt: 120ML OF OPTIRAY 320 EXAM: CT Angiography Chest With Intravenous Contrast CLINICAL HISTORY: Reason for exam: pleuritic cp. TECHNIQUE: Axial computed tomographic angiography images of the chest with intravenous contrast. CTDI is 52.15 mGy and DLP is 888.13 mGy-cm. Automated exposure control was utilized for the study. A dose lowering technique was utilized adhering to the principles of ALARA. MIP reconstructed images were created and reviewed. COMPARISON: Previous CT September 21, 2022. FINDINGS: Pulmonary arteries: Unremarkable. No pulmonary embolism. Aorta: No acute findings. No thoracic aortic aneurysm. Lungs: Unremarkable. No mass. No consolidation. Pleural space: Unremarkable. No significant effusion. No pneumothorax. Heart: Unremarkable. No cardiomegaly. No significant pericardial effusion. No evidence of RV dysfunction. Bones/joints: No acute fracture. No dislocation. Soft tissues: Unremarkable. Lymph nodes: Unremarkable. No enlarged lymph nodes. IMPRESSION: No evidence of pulmonary emboli or acute cardiopulmonary process. Electronically signed by: Danial Osborne MD 10/01/22 03:16 AM Hospital Course (1) Non-ST elevation (NSTEMI) myocardial infarction: (2) CAD (coronary artery disease): (3) COPD (chronic obstructive pulmonary disease): (4) Type 2 diabetes mellitus with insulin therapy: (5) Hypertension: (6) Chronic diastolic CHF (congestive heart failure): Plan 61-year-old male with history of CAD, diabetes, hypertension, COPD, CHF presented to ED with recurrent chest pain requiring sublingual nitroglycerin. Patient was found with NSTEMI. Heart alert was called. Patient went cardiac cath 617 which showed severe proximal LAD in-stent restenosis and BYRON was implanted without complications. Postprocedure, he had no more chest pain. He does have chronic mild residual discomfort involving bilateral shoulders. He is anxious to go home. Counseled on importance of medical compliance with his dual antiplatelets, statins, beta-blockers and Imdur. He is cleared by cardiology for discharge home with follow-up appointment in 2 to 4 weeks. NSTEMI- troponin trend 117->783->1278. Seen by cardiology and underwent cardiac cath today which showed hemodynamically significant in-stent restenosis of proximal LAD and were successfully stented with no complications. Echo with EF 60-65%, grade 1 diastolic dysfunction, mild MR. Continue dual antiplatelet, statin, beta-judit, Imdur Summary of cardiac cath findings per cardiology: 1. Angiographically borderline in-stent restenosis in the proximal LAD which is determined by IFR analysis to be hemodynamically significant. 2. Successful PCI with implantation of a [place] drug-eluting stent in the LAD for in-stent restenosis. 3. No complications post PCI 4. Highly recommend that the patient comply with all cardiac medications including not only his aspirin and Plavix but also his statin and blood pressure medications. 5. We will add long-acting nitrate for probable microvascular dysfunction/angina. 6. I chose to utilize a different brand of stent given that he developed in- stent restenosis relatively soon after initial stent implantation. Furthermore, the second stent was left at a larger diameter than the initial stent which may help with prevention of recurrent in-stent restenosis. However, it does make the ostial stenosis appear angiographically slightly worse. There is a significant step up to the stent diameter. Finally, if the patient were to develop recurrent in-stent restenosis then in all likelihood this would be the inappropriate revascularization strategy and a bypass would be recommended at that time. CAD-as above Diabetes mellitus type 2 on insulin- A1c 7.8. Continue home meds Hypertension-on losartan and metoprolol COPD with suspected bronchitis-CTA chest with no PE or pneumonia. On doxycycline and inhalers Chronic back pain/opiate dependence- had multiple surgeries in past. Follows Dr Bell in [place] for pain management. On high dose MS [id number] with pain management. Tobacco use disorder- on nicoderm patch. Recommended quitting. Leukocytosis-likely reactive. Resolved. AR on CPAP Total Time Total Time Spent Total Time Spent (In Minutes): 40 Discharge Plan Discharge Items Patient Disposition: Home - Self-Care Reason For Visit: NSTEMI Discharge Diagnosis: NSTEMI Activity: Per Instructions section Non-emergency contact: Primary Care Provider and [employer]her [employer]man Call non-emergency contact if: you have any medication questions, your symptoms worsen, your pain is worsening and you have a fever Follow-up/Referrals: Oswaldo Sampson MD [Primary Care Provider] - Diet: Carb Consistent or DM2 Addtl Attending Provider Instructions: Please do not miss any dose of aspirin or plavix. You need it for at least 1 year. Also continue other medicines including metoprolol, imdur, rosuvastatin. Recommend quitting smoking and compliance with your medications Follow up with your family doctor and cardiology. ACTIVITY RECOMMENDATIONS: Excess manipulation of the wrist should be avoided for the next 24-48 hours. * No lifting over 2 pounds (approximately a 1/2 gallon of milk) with the utilized arm for 24 hours. * No strenuous activity such as bowling or tennis for 3 days. * Keep the site of the procedure covered with a bandage for 24 hours. *You may shower the day after the procedure. Do not take a tub bath or submerge the puncture site in water for the next 3 days. *Do not operate any motorized equipment for 3 days. SPECIAL CARE INSTRUCTIONS: The site may be slightly bruised and sore following your procedure. Should any of the following occur, contact the Dr. who performed your procedure. 1. Redness/inflammation, swelling, chills, or fever, or colored drainage at procedure site within 3-7 days after your procedure. 2. Coldness, discoloration, ongoing numbness, severe pain, or swelling. Expect mild tingling of hand and tenderness at the puncture site for up to three days. If this persists beyond three days, or other symptoms develop, notify the DrDonna who performed your procedure. BLEEDING: If the procedure site on your wrist begins to bleed, do not panic 1. Place 1 or 2 fingers firmly just slightly above the insertion site to stop the bleeding. You may be able to feel your pulse as you hold pressure. 2. Lift your finger after 5 minutes to see if the bleeding has stopped. 3. Once the bleeding has stopped, gently wipe the wrist area clean with a bandage. * If the bleeding from your wrist does not stop after 10 minutes, or if there is a large amount of bleeding or spurting, call 911 (do not drive yourself to the hospital). SKIN IRRITATION: * You may experience some redness and/or swelling in the area where radiation was administered. If any skin irritation occurs, please contact your family physician. FOLLOW UP VISIT: Keep any scheduled doctor appointments. Pending Studies at Discharge: No Stand-Alone Forms: My [facility] Dragonfly List, Smoking Cessation Medications and DC Order Prescriptions: New doxycycline hyclate 100 mg Capsule 100 mg PO BID 3 Days Qty: 6 0RF isosorbide mononitrate 30 mg Tablet Extended Release 24 Hr 30 mg PO QAM Qty: 30 0RF rosuvastatin 5 mg Tablet 5 mg PO QAM Qty: 30 0RF Continued clopidogrel 75 mg tablet 75 mg PO QAM (DME) blood sugar diagnostic Strip See Rx Instructions .ROUTE .MEDSUPPLY Qty: 900 3RF Rx Instructions: test 10 times QD. OneTouch Ultra (DME) Oxygen Home Liters Per Minute See Rx Instructions .ROUTE .MEDSUPPLY Qty: 1 Rx Instructions: 4 LPM at night with CPAP morphine 30 mg tablet extended release 30 mg PO Q8H PRN (Reason: breakthrough pain 6-10) Rx Instructions: Per pt he takes 3 times daily. Depends on his day how he takes it. Typically more into the night. Linzess 145 mcg capsule 145 mcg PO DAILY PRN (Reason: Constipation) (DME) blood-glucose meter [OneTouch Verio Flex meter] [facility] See Rx Instructions .ROUTE .MEDSUPPLY Rx Instructions: Test blood sugars 2 times a day morphine 100 mg tablet extended release 100 mg PO TID@08,14,20 Rx Instructions: last dose at 8AM this morning , around 2-3 and 8 at night. (DME) Dexcom G6 Sensor Device See Rx Instructions .Route Rx Instructions: As directed (DME) Dexcom G6 [employer] Loose End Finder Misc See Rx Instructions .Route Rx Instructions: As directed (DME) Dexcom G6 Transmitter Device See Rx Instructions .Route Rx Instructions: As directed aspirin 81 mg Tablet,Delayed Release (Dr/Ec) 81 mg PO HS nitroglycerin [Nitrostat] 0.4 mg Tablet, Sublingual 1 tab Sublingual UD PRN (Reason: CHESTPAIN) montelukast 10 mg Tablet 10 mg PO HS PRN (Reason: pt request) albuterol sulfate 90 mcg/actuation Hfa Aerosol Inhaler 2 puff INHALATION Q6H PRN (Reason: Wheezing) pantoprazole 40 mg tablet,delayed release (DR/EC) 40 mg PO BID PRN (Reason: Heartburn) Zyrtec 10 mg capsule 10 mg PO DAILY PRN (Reason: Allergy Symptoms) Rx Instructions: usually does half tab at a time cholecalciferol (vitamin D3) [Vitamin D3] 25 mcg (1,000 unit) capsule 3,000 unit PO HS metoprolol succinate 25 mg tablet extended release 24 hr 25 mg PO BID nicotine 21 mg/24 hr Patch 24 Hour 1 patch TRANSDERMAL DAILY furosemide 20 mg tablet 40 mg PO BID Rx Instructions: patient taking differently: only takes 20mg PO daily Toujeo SoloStar U-300 Insulin 300 unit/mL (1.5 mL) insulin pen 140 unit SUBCUT QAM morphine 15 mg tablet 15 mg PO Q6 PRN (Reason: Breakthrough Pain 1-6) hydroxyzine pamoate [Vistaril] 25 mg capsule 25 mg PO Q8H PRN (Reason: anxiety) 5 Days Qty: 15 1RF budesonide 0.5 mg/2 mL suspension for nebulization 0.5 mg inhalation BID testosterone 20.25 mg/1.25 gram (1.62 %) gel in metered-dose pump 2 pump topical HS Rx Instructions: apply 1 pump amount over max area of EACH upper arm and shoulder PDMP queried okay to fill insulin aspart U-100 [Novolog FlexPen U-100 Insulin] 100 unit/mL (3 mL) insulin pen 0 unit SQ WM MDD 100 units Rx Instructions: per sliding scale with meals; TDD 100 units losartan 25 mg tablet 25 mg PO DAILY Discharge Orders: Discharge Order (Routine); Ordered 10/02/22 Ordered By: Lobito Ceron/Other Patient Handouts: Coronary Stents, Cardiac Catheterization Dc Admission Data Admit Date/Time: 10/01/22 04:19 Attending Provider: Lobito Bustos Admit Provider: Williams Anguiano Primary Care Provider: Oswaldo Sampson Other Providers: Williams Anguiano ; Nanci Miek ; Joseph Garzon ; Ga Johnson ; Maximiliano Cast ; Carlyle Rivera ; Hubert Fulton ; Deanna Colin ; Perla Griffiths ; Nanci Glasgow ; Jose Stubbs ; Brenda Smith Other Interventions: Discharge Summary Assessment (RN) Last Done: 10/02/22 10:43
--- NOTE | 2022-10-02 11:57 | Cardiology Progress Note ---
Date of Service October 02, 2022 Assessment & Plan (1) Non-ST elevation (NSTEMI) myocardial infarction: (2) Coronary stent restenosis with uncertain cause: (3) Status post insertion of drug-eluting stent into left anterior descending (LAD) artery: (4) Noncompliance: (5) Hypertension: (6) Dyslipidemia: (7) Chronic diastolic CHF (congestive heart failure): (8) Diabetes type 2, uncontrolled: (9) Chronic pain syndrome: (10) Tobacco abuse: Plan 61-year-old patient admitted with NSTEMI. Taken urgently to cardiac catheterization lab 10/01/2022. Coronary angiography revealing severe proximal LAD in-stent restenosis. A drug-eluting stent was implanted without complication. Patient feeling much better today without recurrent chest pain. Reviewed importance of continuing current medications, specifically dual antiplatelet therapy uninterrupted for minimum of 12 months. Other medications including isosorbide monohydrate, losartan, metoprolol succinate, and statin therapy will be continued at discharge. Outpatient cardiology follow-up in 2 to 4 weeks. Admission and Anticipated Discharge Date Admission Date: October 01, 2022 Subjective Patient seen examined the bedside. Chest discomfort has resolved. Notes some mild residual discomfort involving his shoulders which appears chronic. States he is feeling much better and would like to be discharged home. No orthopnea, PND, or edema. present at bedside. Offers no additional concerns/complaints. Review of Systems Review of Systems: All systems reviewed & are unremarkable except as noted in Subjective Physical Exam Constitutional: well developed, well nourished and + obese; not ill appearing Respiratory: no respiratory distress, no labored breathing and no retractions Auscultation: no crackles, no rales, no rhonchi and no wheezes Cardiovascular: Rate/Rhythm: regular rate and regular rhythm Heart Sounds: normal S1 and normal S2; no murmur Vessels: femoral pulses present and radial pulses present; no JVD and no carotid bruit Extremities: no edema Gastrointestinal (Abdomen): Inspection/Auscultation: normal bowel sounds; abdomen not distended Percussion/Palpation: abdomen soft; abdomen nontender and no guarding Neurologic: CN's II-XI intact bilaterally and moves all extremities; no focal motor deficits Psychiatric: Orientation: alert and oriented x 3 Results & Data Vital Signs (Past 12 Hours) Vital Signs Temp Pulse Pulse Resp BP Pulse Ox O2 Del Method 10/02/22 10:43 36.7 C 83 18 128/74 94 10/02/22 08:00 70 10/02/22 08:00 Room Air 10/02/22 08:12 36.7 C 83 18 128/74 94 Room Air 10/02/22 07:01 73 16 94 Room Air 10/02/22 03:40 72 20 96 10/02/22 00:39 75 19 96 10/02/22 03:00 36.6 C 64 18 128/73 98 Room Air O2 Flow Rate 10/02/22 10:43 10/02/22 08:00 10/02/22 08:00 10/02/22 08:12 10/02/22 07:01 10/02/22 03:40 10/02/22 00:39 3 10/02/22 03:00 Laboratory Results Lipids 10/02/22 Range/Units 05:42 Triglycerides 247 H (0-150) mg/dl Cholesterol 152 (0-200) mg/dl HDL Cholesterol 41 mg/dl Cholesterol/HDL Ratio 3.7 (0-5) CBC 10/02/22 Range/Units 05:42 WBC 10.14 (4.8-10.8) K/ul RBC 5.34 (4.70-6.10) M/uL Hgb 12.4 L (14.0-18.0) g/dl Hct 39.7 L (42.0-52.0) % Plt Count 245 (130-400) K/uL Comprehensive Metabolic Panel 10/02/22 Range/Units 05:42 Sodium 134 L (136-145) mmol/L Potassium 4.5 (3.5-5.1) mmol/L Chloride 101 (98-107) mmol/L Carbon Dioxide 28 (21-32) mmol/L BUN 21 (6-23) mg/dl Creatinine 1.27 (0.6-1.4) mg/dl Glucose 236 H (70-99(Fasting)) mg/dl Calcium 9.1 (8.6-10.3) mg/dl Intake and Output 10/01/22 10/02/22 10/02/22 22:59 06:59 14:59 Intake Total 100 / 1250.583 Balance 100 / 550.583 Intake: Oral 100 / 900 Other: Weight 116.3 kg 116.3 kg Weight Measurement Method Standing Scale Patient Weight 10/03/22 06:59 Weight 116.3 kg (5) Hypertension Hypertension type: unspecified Qualified Code(s): I10 - Essential (primary) hypertension
--- NOTE | 2022-10-02 13:36 | Electrocardiogram Report ---
Test Reason : Blood Pressure : / mmHG Vent. Rate : 102 BPM Atrial Rate : 102 BPM P-R Int : 180 ms QRS Dur : 130 ms QT Int : 360 ms P-R-T Axes : 065 -57 030 degrees QTc Int : 469 ms Sinus tachycardia Right bundle branch block Left anterior fascicular block Bifascicular block Abnormal ECG When compared with ECG of 30-SEP-2022 23:51, No significant change was found Confirmed by Herbert Mahoney ([id number]) on 10/02/2022 1:36:38 PM Referred By: REFERRED SELF Confirmed By:Herbert Mahoney
--- NOTE | 2022-10-02 13:50 | Electrocardiogram Report ---
Test Reason : Blood Pressure : / mmHG Vent. Rate : 090 BPM Atrial Rate : 090 BPM P-R Int : 222 ms QRS Dur : 132 ms QT Int : 380 ms P-R-T Axes : 064 -52 014 degrees QTc Int : 464 ms Sinus rhythm with 1st degree A-V block Right bundle branch block Left anterior fascicular block Bifascicular block Cannot rule out Inferior infarct (cited on or before 01-OCT-2022) Abnormal ECG When compared with ECG of 01-OCT-2022 09:26, No significant change was found Confirmed by Herbert Mahoney ([id number]) on 10/02/2022 1:50:20 PM Referred By: REFERRED SELF Confirmed By:Herbert Mahoney
--- NOTE | 2022-10-02 14:11 | Electrocardiogram Report ---
Test Reason : Blood Pressure : / mmHG Vent. Rate : 068 BPM Atrial Rate : 068 BPM P-R Int : 176 ms QRS Dur : 132 ms QT Int : 410 ms P-R-T Axes : 061 -51 -08 degrees QTc Int : 435 ms Normal sinus rhythm Right bundle branch block Left anterior fascicular block Bifascicular block Cannot rule out Inferior infarct (cited on or before 01-OCT-2022) Abnormal ECG When compared with ECG of 01-OCT-2022 12:24, (unconfirmed) NV interval has decreased Nonspecific T wave abnormality now evident in Anterolateral leads Confirmed by Herbert Mahoney ([id number]) on 10/02/2022 2:11:21 PM Referred By: REFERRED SELF Confirmed By:Herbert Mahoney
== END 2022-10-02 11:42 | disposition home or self-care (01) | DRG 246 ==
LOC: ED 23:44 → EDINP 10-01 04:19 → 1E 10-01 04:49 → 4W 10-01 18:13

== ENCOUNTER 2022-11-08 18:02 | Inpatient (IN) ==
--- NOTE | 2022-11-08 18:16 | Emergency Department Note ---
Impression & Plan Hypertensive urgency, Hypervolemia, Substernal chest pain, Elevated troponin, Chronic pain syndrome ED Provider Note NAME: DAKOTA RIOS AGE: 62 SEX: M ARRIVES VIA: Ambulance INFORMANT: Patient ED PROVIDER(S): Nilesh Granados MD CHIEF COMPLAINT: Chest pain PLAN: Disposition: Admit MEDICAL DECISION MAKING: The patient is a 62-year-old gentleman with a history of chronic pain on chronic morphine, history of CAD, CHF, CKD, diabetes, gastroparesis, hypertension, hyperlipidemia, COPD, AR on CPAP, prior tobacco use recently and cessation who presents to the emergency department via EMS for evaluation of ongoing chest pain since he was discharged from this facility in September following an admission from 09/30-10/02 for an N STEMI where borderline in-stent restenosis in the proximal LAD was identified and had successful PCI with implantation of drug- eluting stent in the LAD. The patient did receive full dose aspirin by EMS and nitroglycerin which she reports did help his chest pain but it is coming back. He does acknowledge that he has chronic pain and so it is difficult to assess what is what. They deny any cough, congestion, vomiting, diarrhea or urinary symptoms. On arrival to emergency department the patient is no acute distress, afebrile heart in the 110s and blood pressure 180s/80s. He appears hypervolemic with 1+ bilateral lower extremity edema. Patient weight is up approximately 43- kg from his last admission. He has reproducible anterior chest wall pain which she reports is the pain he is experiencing. He further request pain medication for his chronic back pain. EKG without overt acute ischemia. CXR negative for acute cardiopulmonary process. WBC 11.4k nonspecific. H/H similar to prior. Platelets within normal limits. Chemistry without metabolic acidosis. Electrolytes and LFTs without significant abnormality. High-sensitivity troponin 385, decreased from recent and nonspecific. Lipase is not elevated. Treatment was initiated with Nitroglycerin paste as well as IV Lasix for component of hypervolemia which may be contributing to patient's elevated blood pressure and thereby contribute to chest pain. Given high-sensitivity troponin is lower than prior will continue to trend. Case was discussed with Dr. Manuel, [facility] hospitalist, who will evaluate the patient for admission. Triage Nursing notes reviewed and agree them. Prior/outside medical records reviewed Vital Signs: reviewed Differential diagnosis: Cardiac ischemia, aortic dissection, pulmonary embolism, pneumothorax, pneumonia, pericarditis, myocarditis, esophageal rupture, GERD, cholecystitis, pancreatitis, musculoskeletal, as well as other pathologies. ER treatment provided: See below. Diagnostics interpreted by me: ECG: Sinus tachycardia with fusion complexes, 114 bpm, right bundle branch block, left anterior fascicular block, no overt ST elevation. Similar to October 02, 2022. Cardiac Monitoring: An order for continuous cardiac monitoring was placed and demonstrated sinus tachycardia, 114 bpm, fusion complexes. Laboratory studies: See below Imaging studies: See below Consultation(s): Case was discussed with Dr. Manuel, [facility] hospitalist, who will evaluate the patient for admission. HPI: The patient is a 62-year-old gentleman with a history of chronic pain on chronic morphine, history of CAD, CHF, CKD, diabetes, gastroparesis, hypertension, hyperlipidemia, COPD, AR on CPAP, prior tobacco use recently and cessation who presents to the emergency department via EMS for evaluation of ongoing chest pain since he was discharged from this facility in September following an admission from 09/30-10/02 for an NSTEMI where borderline in-stent restenosis in the proximal LAD was identified and had successful PCI with implantation of drug-eluting stent in the LAD. The patient did receive full dose aspirin by EMS and nitroglycerin which she reports did help his chest pain but it is coming back. He does acknowledge that he has chronic pain and so it is difficult to assess what is what. They deny any cough, congestion, vomiting, diarrhea or urinary symptoms. ROS: See above HPI for pertinent positives & negatives. A total of 10 systems reviewed and were otherwise negative. VITALS:See Below PHYSICAL EXAMINATION: GENERAL: Awake, alert, in no distress, BMI 41.4. HENT: Normocephalic, atraumatic. Oropharynx unremarkable. EYES: Normal conjunctiva. Sclera non-icteric. NECK: Supple. No nuchal rigidity. FROM. No JVD. RESPIRATORY: Clear to auscultation. CARDIAC: Tachycardic rate, normal rhythm. Extremities warm and well perfused. Pulses equal. ABDOMEN: Soft, non-distended. No tenderness to palpation. No rebound or guarding. No masses. RECTAL: Deferred. MUSCULOSKELETAL: Chest examination reveals no tenderness. The back is symmetrical on inspection without obvious abnormality. There is no CVA tenderness to palpation. No joint edema. LOWER EXTREMITIES: Calves are equal size bilaterally and non-tender. 1+ BLE edema. No discoloration. NEURO: Normal sensorium. No sensory or motor deficits noted. SKIN: No rash or jaundice noted. ED COURSE: Critical Care: I have personally spent greater than 35 minutes of critical care time in the direct management of this patient. This includes bedside care, interpretation of diagnostic studies, and testing, discussion with consultants, patient, and family members, and other required patient management activities. This 35 minutes is in excess of all separately billable procedures. Nilesh Granados MD Past Med/Surg History Medical History Bifascicular block Chronic back pain Chronic diastolic CHF (congestive heart failure) EF 63% 05/2021 echo Chronic kidney disease (CKD) COPD (chronic obstructive pulmonary disease) Degenerative disc disease Diabetes mellitus, type 2 IDDM Diverticular disease GERD (gastroesophageal reflux disease) History of acute pancreatitis RELATED TO A STONE OBSTRUCTION, 10/2017 History of basal cell carcinoma History of SCC (squamous cell carcinoma) of skin History of skin cancer S/P EXCISION OF SCALP Irritable bowel syndrome (IBS) Medical cannabis use Migraines Obesity On home oxygen therapy 3 lpm via n/c Polycythemia, secondary Post traumatic stress disorder Postlaminectomy syndrome of lumbosacral region Sleep apnea CPAP WITH 4 L/MIN HS. S/P UPPP. SOBOE (shortness of breath on exertion) Tachycardia Therapeutic opioid-induced constipation (OIC) Tinea pedis Transient ischemic attack (TIA) unsure of date - treated at [facility] -- 5+ years ago. Surgical History Fusion of spine MULTIPLE LUMBARX2 History of appendectomy History of back surgery total of 6 back surgeries. 2 failed surgeries History of cardiac cath 2017-NO STENTS History of cardiac cath 02/2022 with 1 stent (LAD) Dr Leach at [facility]. History of colonoscopy History of ERCP 11/2017 [facility] History of esophagogastroduodenoscopy (EGD) History of heart artery stent x1 stent (02/2022) History of repair of rotator cuff LEFT SHOULDER History of surgery RT ELBOW History of tonsillectomy History of uvulopalatopharyngoplasty FOR TREATMENT OF AR S/P cholecystectomy 07/02/1819 Grade 2 view, MAC 3, ETT 8. Family History Other COPD (chronic obstructive pulmonary disease) Cancer Diabetes Heart disease Hypertension Social History Smoking Status: Former smoker Tobacco Type: Cigarettes packs per day: 1; Cigarettes Per Day: 1 ppd; Second Hand Exposure: No; Do You Dip or Chew Tobacco: No; Hx Alcohol Use: No Hx Substance Use: Yes Last Used Substance: Just Prior to Arrival Last Used Pedersen bstance Other:: Patient used marijuana pen last evening before coming to ER Substance Use Type Other:: MEDICAL MARIJUANA Preferred Language: Bahamian Communication Ability: Effective Visual Impairment: No Limitations Hazmat Technician Required: No Beliefs That Will Affect Care: None marital status: Current Living Situation: Spouse Current Living Situation Comment: [place] Feels Safe at Home: Yes Assistive Devices: Cane and Walker Allergies Allergies Allergy/AdvReac Type Severity Reaction Status Date / Time clarithromycin Allergy Severe DAMAGED Verified 10/21/22 13:28 LIVER PER PT-REQUIRED HOSPITALIZATION latex Allergy Intermediate skin Verified 10/21/22 13:28 irritation/rash adhesive AdvReac Mild SKIN Verified 10/21/22 13:28 RASH-WITH SOME TAPES dulaglutide AdvReac Unknown hx Verified 10/21/22 13:28 pancreatitis exenatide AdvReac Unknown hx Verified 10/21/22 13:28 pancreatitis liraglutide AdvReac Unknown hx Verified 10/21/22 13:28 pancreatitis semaglutide AdvReac Unknown hx Verified 10/21/22 13:28 pancreatitis Uncoded Nonscreenable Allergy Intermediate PLASTICS: Uncoded 10/21/22 13:28 Allergen BLISTERS Home Meds Home Medications Medication Instructions Recorded Confirmed albuterol sulfate 90 mcg/actuation 2 puff inhalation Q6H PRN Wheezing 06/26/18 11/08/22 aerosol inhaler montelukast 10 mg tablet 10 mg PO HS PRN pt request 06/26/18 11/08/22 nitroglycerin 0.4 mg sublingual 1 tab sublingual UD PRN CHESTPAIN 06/26/18 11/08/22 tablet (Nitrostat) pantoprazole 40 mg tablet,delayed 40 mg PO DAILY PRN Heartburn 01/28/19 11/08/22 release Oxygen Home #1 ea 04/30/19 11/08/22 aspirin 81 mg tablet,delayed 81 mg PO HS 03/12/20 11/08/22 release blood-glucose meter (OneTouch 08/14/20 11/08/22 Verio Flex Meter) blood-glucose meter,continuous 02/03/21 11/08/22 (Dexcom G6 Manager Quality) blood-glucose sensor (Dexcom G6 02/03/21 11/08/22 Sensor device) blood-glucose transmitter (Dexcom 02/03/21 11/08/22 G6 Transmitter device) cetirizine 10 mg capsule (Zyrtec) 10 mg PO DAILY PRN Allergy Symptoms 03/05/21 11/08/22 cholecalciferol (vitamin D3) 25 3,000 unit PO HS 03/05/21 11/08/22 mcg (1,000 unit) capsule (Vitamin D3) morphine 100 mg tablet,extended 100 mg PO TID@08,14,20 10/12/21 11/08/22 release clopidogrel 75 mg tablet (Plavix) 75 mg PO QAM 05/16/22 11/08/22 budesonide 0.5 mg/2 mL suspension 0.5 mg inhalation BID 06/13/22 11/08/22 for nebulization linaclotide 145 mcg capsule 145 mcg PO DAILY PRN Constipation 08/01/22 11/08/22 (Linzess) metoprolol succinate 25 mg 25 mg PO BID 08/01/22 11/08/22 tablet,extended release 24 hr morphine 30 mg tablet,extended 30 mg PO Q8H PRN breakthrough pain 08/01/22 11/08/22 release 6-10 furosemide 20 mg tablet 20 mg PO DAILY 09/13/22 11/08/22 morphine 15 mg immediate release 15 mg PO Q6 PRN Breakthrough Pain 09/13/22 11/08/22 tablet 1-6 nicotine 21 mg/24 hr daily 1 patch transdermal DAILY 09/13/22 11/08/22 transdermal patch insulin aspart U-100 100 unit/mL 0 unit subcut WM 10/01/22 11/08/22 (3 mL) subcutaneous pen (Novolog FlexPen U-100 Insulin aspart) insulin glargine U-300 conc 300 See Rx Instructions .Route .COMPLEX 11/08/22 11/08/22 unit/mL (1.5 mL) subcutaneous pen (Toujeo SoloStar U-300 Insulin) rosuvastatin 5 mg tablet (Crestor) 5 mg PO QAM 11/08/22 11/08/22 Previous Rx's Medication Instructions Recorded hydroxyzine pamoate 25 mg capsule 25 mg PO Q8H PRN anxiety 5 days 06/16/21 (Vistaril) #15 caps blood sugar diagnostic #900 ea 08/19/22 isosorbide mononitrate 30 mg 30 mg PO QAM #30 tabs 10/02/22 tablet,extended release 24 hr testosterone 2 pump topical HS #225 grams 10/24/22 Results & Data (ED) Vital Signs Vital Signs - 24 hr 11/08/22 18:19 11/08/22 17:53 11/08/22 17:53 Temperature 37.3 C Temperature Source Oral Pulse Rate 111 H 105 H Pulse Rate from SpO2 Sensor Respiratory Rate 20 Respiratory Effort / Characteristics Non-Labored Spontaneous Respiratory Depth Normal Respiratory Pattern Regular Blood Pressure 182/87 H Blood Pressure Mean 118 Pulse Oximetry 97 97 Oxygen Delivery Method Room Air Room Air Oxygen Flow Rate 0 Sepsis Recent Fever Within 48 Hours No Sepsis New/Unexplained Change in Mental Status N/A Sepsis Action Taken by Nursing No Action Required 11/08/22 18:13 11/08/22 21:26 11/08/22 18:11 Temperature Temperature Source Pulse Rate 113 H 107 H Pulse Rate from SpO2 Sensor 107 H Respiratory Rate 20 Respiratory Effort / Characteristics Respiratory Depth Respiratory Pattern Blood Pressure Blood Pressure Mean Pulse Oximetry 97 94 Oxygen Delivery Method Room Air Oxygen Flow Rate Sepsis Recent Fever Within 48 Hours Sepsis New/Unexplained Change in Mental Status Sepsis Action Taken by Nursing 11/08/22 18:20 11/08/22 18:30 11/08/22 18:40 Temperature Temperature Source Pulse Rate 107 H 103 H 102 H Pulse Rate from SpO2 Sensor 106 H Respiratory Rate 13 14 22 Respiratory Effort / Characteristics Respiratory Depth Respiratory Pattern Blood Pressure Blood Pressure Mean Pulse Oximetry 92 Oxygen Delivery Method Oxygen Flow Rate Sepsis Recent Fever Within 48 Hours Sepsis New/Unexplained Change in Mental Status Sepsis Action Taken by Nursing 11/08/22 18:50 11/08/22 19:00 11/08/22 19:10 Temperature Temperature Source Pulse Rate 102 H 106 H 109 H Pulse Rate from SpO2 Sensor 109 H Respiratory Rate 13 19 15 Respiratory Effort / Characteristics Respiratory Depth Respiratory Pattern Blood Pressure Blood Pressure Mean Pulse Oximetry 90 Oxygen Delivery Method Oxygen Flow Rate Sepsis Recent Fever Within 48 Hours Sepsis New/Unexplained Change in Mental Status Sepsis Action Taken by Nursing 11/08/22 19:12 11/08/22 19:12 11/08/22 19:20 Temperature Temperature Source Pulse Rate 105 H 99 H Pulse Rate from SpO2 Sensor 105 H 98 H Respiratory Rate 21 12 Respiratory Effort / Characteristics Respiratory Depth Respiratory Pattern Blood Pressure 154/82 H Blood Pressure Mean 93 Pulse Oximetry 91 92 Oxygen Delivery Method Oxygen Flow Rate Sepsis Recent Fever Within 48 Hours Sepsis New/Unexplained Change in Mental Status Sepsis Action Taken by Nursing 11/08/22 19:30 11/08/22 19:30 11/08/22 19:40 Temperature Temperature Source Pulse Rate 100 H 106 H Pulse Rate from SpO2 Sensor 99 H 105 H Respiratory Rate 16 14 Respiratory Effort / Characteristics Respiratory Depth Respiratory Pattern Blood Pressure 145/83 H Blood Pressure Mean 101 Pulse Oximetry 96 95 Oxygen Delivery Method Oxygen Flow Rate Sepsis Recent Fever Within 48 Hours Sepsis New/Unexplained Change in Mental Status Sepsis Action Taken by Nursing 11/08/22 19:50 11/08/22 20:00 11/08/22 20:01 Temperature Temperature Source Pulse Rate 100 H 105 H 106 H Pulse Rate from SpO2 Sensor 100 H 104 H Respiratory Rate 12 15 14 Respiratory Effort / Characteristics Respiratory Depth Respiratory Pattern Blood Pressure Blood Pressure Mean Pulse Oximetry 95 97 Oxygen Delivery Method Oxygen Flow Rate Sepsis Recent Fever Within 48 Hours Sepsis New/Unexplained Change in Mental Status Sepsis Action Taken by Nursing 11/08/22 20:01 11/08/22 20:10 11/08/22 20:20 Temperature Temperature Source Pulse Rate 107 H 104 H Pulse Rate from SpO2 Sensor 104 H Respiratory Rate 17 12 Respiratory Effort / Characteristics Respiratory Depth Respiratory Pattern Blood Pressure 140/78 Blood Pressure Mean 91 Pulse Oximetry 96 Oxygen Delivery Method Oxygen Flow Rate Sepsis Recent Fever Within 48 Hours Sepsis New/Unexplained Change in Mental Status Sepsis Action Taken by Nursing 11/08/22 20:30 11/08/22 20:30 11/08/22 20:40 Temperature Temperature Source Pulse Rate 107 H 108 H Pulse Rate from SpO2 Sensor 109 H 107 H Respiratory Rate 20 18 Respiratory Effort / Characteristics Respiratory Depth Respiratory Pattern Blood Pressure 156/116 H Blood Pressure Mean 132 Pulse Oximetry 97 97 Oxygen Delivery Method Oxygen Flow Rate Sepsis Recent Fever Within 48 Hours Sepsis New/Unexplained Change in Mental Status Sepsis Action Taken by Nursing 11/08/22 20:50 11/08/22 21:00 11/08/22 21:00 Temperature Temperature Source Pulse Rate 113 H Pulse Rate from SpO2 Sensor 109 H 112 H Respiratory Rate 15 Respiratory Effort / Characteristics Respiratory Depth Respiratory Pattern Blood Pressure 151/99 H Blood Pressure Mean 123 Pulse Oximetry 96 95 Oxygen Delivery Method Oxygen Flow Rate Sepsis Recent Fever Within 48 Hours Sepsis New/Unexplained Change in Mental Status Sepsis Action Taken by Nursing 11/08/22 21:10 11/08/22 21:20 11/08/22 21:30 Temperature Temperature Source Pulse Rate 108 H 113 H Pulse Rate from SpO2 Sensor 109 H 114 H Respiratory Rate 21 20 Respiratory Effort / Characteristics Respiratory Depth Respiratory Pattern Blood Pressure 126/91 Blood Pressure Mean 97 Pulse Oximetry 98 96 Oxygen Delivery Method Oxygen Flow Rate Sepsis Recent Fever Within 48 Hours Sepsis New/Unexplained Change in Mental Status Sepsis Action Taken by Nursing 11/08/22 21:30 Temperature Temperature Source Pulse Rate 108 H Pulse Rate from SpO2 Sensor 108 H Respiratory Rate 17 Respiratory Effort / Characteristics Respiratory Depth Respiratory Pattern Blood Pressure Blood Pressure Mean Pulse Oximetry 96 Oxygen Delivery Method Nasal Cannula Oxygen Flow Rate 2 Sepsis Recent Fever Within 48 Hours Sepsis New/Unexplained Change in Mental Status Sepsis Action Taken by Nursing Laboratory Data Attestation: I reviewed the patient's lab results. 11/08/22 18:15 11/08/22 18:15 Lab Results 11/08/22 11/08/22 11/08/22 Range/Units 18:15 18:15 18:15 WBC 11.48 H (4.8-10.8) K/ul RBC 5.06 (4.70-6.10) M/uL Hgb 12.4 L (14.0-18.0) g/dl Hct 39.5 L (42.0-52.0) % MCV 78.1 L (80.0-100.0) fL MCH 24.5 L (25.0-34.0) pg MCHC 31.4 L (32.0-36.0) g/dL RDW Std Deviation 52.8 H (36.4-46.3) fL RDW Coeff of Ben 18.6 H (11.5-14.5) % Plt Count 266 (130-400) K/uL MPV 8.6 L (9.4-12.4) fL Immature Gran % (Auto) 0.3 % Neut % (Auto) 74.0 % Lymph % (Auto) 16.3 % [place] % (Auto) 8.4 % Eos % (Auto) 0.7 % Baso % (Auto) 0.3 % Neut # (Auto) 8.48 H (1.40-6.50) K/uL Lymph # (Auto) 1.87 (1.2-3.4) K/uL [place] # (Auto) 0.97 H (0.11-0.59) K/uL Eos # (Auto) 0.08 (0-0.50) K/uL Baso # (Auto) 0.04 (0-0.2) K/uL Immature Gran # (Auto) 0.04 (0.01-0.20) K/uL Sodium 136 (136-145) mmol/L Potassium 4.1 (3.5-5.1) mmol/L Chloride 101 (98-107) mmol/L Carbon Dioxide 28 (21-32) mmol/L Anion Gap 7 (3-11) BUN 16 (6-23) mg/dl Creatinine 1.18 (0.6-1.4) mg/dl Est Cr Clr Drug Dosing 82.5 ml/min Est GFR ( Amer) 77.3 ml/min Est GFR (Non-Af Amer) 66.7 ml/min BUN/Creatinine Ratio 13.6 (10-20) Glucose 158 H (70-99(Fasting)) mg/dl Calcium 8.7 (8.6-10.3) mg/dl Phosphorus 3.3 (2.5-4.9) mg/dl Magnesium 2.0 (1.7-2.4) mg/dl Total Bilirubin 0.4 (0.2-1.0) mg/dl AST 36 (13-39) U/L ALT 20 (7-52) U/L Alkaline Phosphatase 70 (34-104) U/L Troponin I High Sens 385.3 H* (0-20) pg/ml B-Natriuretic Peptide 39 (0-100) pg/ml Total Protein 5.9 L (6.0-8.3) gm/dl Albumin 3.6 (3.4-5.0) gm/dl Globulin 2.3 L (2.5-4.0) gm/dl Albumin/Globulin Ratio 1.6 (0.9-2) Lipase 27 (11-82) U/L Administered Medications Nicotine (Nicotine 21 Mg/24 Hr Tdsy) 21 mg TD QAM CHASITY Stop: 12/08/22 18:59 Last Admin: 11/08/22 19:08 Dose: 21 mg Documented By: SUZY Discontinued Medications Furosemide (Furosemide 40 Mg/4 Ml Vial) 40 mg IV ONE ONE Stop: 11/08/22 19:13 Last Admin: 11/08/22 20:27 Dose: 40 mg Documented By: SUZY Lorazepam (Lorazepam 1 Mg Tab) 1 mg SL NOW STA Stop: 11/08/22 20:16 Last Admin: 11/08/22 20:30 Dose: 1 mg Documented By: SUZY Morphine Sulfate (Morphine Sulfate Ir 15 Mg Tab (Immediate Release)) 15 mg PO NOW STA Stop: 11/08/22 19:00 Last Admin: 11/08/22 19:10 Dose: 15 mg Documented By: SUZY Morphine Sulfate (Morphine Sulfate Cr 15 Mg Tabcr) 105 mg PO NOW STA Stop: 11/08/22 21:01 Last Admin: 11/08/22 21:28 Dose: 105 mg Documented By: SUZY Nitroglycerin (Nitroglycerin 2% Ointment 30gm Tube) 1 inch EXT NOW STA Stop: 11/08/22 18:58 Last Admin: 11/08/22 19:07 Dose: 1 inch Documented By: SUZY Imaging Data Radiologist's Impression: Chest X-Ray 11/08/22 18:13 XR chest 1V portable HISTORY: 62 years-old Male Chest pain, nonspecific COMPARISON: 10/01/2022 TECHNIQUE: AP view of the chest FINDINGS: Cardiomediastinal and hilar silhouettes are within normal limits. No pneumothorax, pleural effusion, airspace consolidation or overt pulmonary edema. Chronic left distal clavicular deformity. No acute fracture identified. IMPRESSION: No acute process. ACT 112: Negative or not required by law. The above report was generated using voice recognition software. It may contain grammatical, syntax or spelling errors. Electronically signed by: Prashant Pope M.D. 11/08/2022 6:41 PM Discharge Plan Visit Data Chief Complaint: Cardiac Assessment ED Provider: Nilesh Granados Discharge Problem: Hypertensive urgency, Hypervolemia, Substernal chest pain, Elevated troponin, Chronic pain syndrome Patient Disposition: Admitted As Inpatient Discharge Instructions Interventions: ED Discharge Assessment Last Done: 11/08/22 22:14 Forms Stand Alone Forms: My [facility] [place] Enable Injections Prescriptions Prescriptions: No Action clopidogrel [Plavix] 75 mg tablet 75 mg PO QAM (DME) blood sugar diagnostic Strip See Rx Instructions .ROUTE .MEDSUPPLY Qty: 900 3RF Rx Instructions: test 10 times QD. OneTouch Ultra testosterone 20.25 mg/1.25 gram (1.62 %) gel in metered-dose pump 2 pump topical HS Qty: 225 0RF Rx Instructions: apply 1 pump amount over max area of EACH upper arm and shoulder 10/24/22 PDMP queried okay to fill - TR (DME) Oxygen Home Liters Per Minute See Rx Instructions .ROUTE .MEDSUPPLY Qty: 1 Rx Instructions: 4 LPM at night with CPAP. pt also wears O2 at home prn throughout the day. morphine 30 mg tablet extended release 30 mg PO Q8H PRN (Reason: breakthrough pain 6-10) Rx Instructions: Per pt he takes 3 times daily. Depends on his day how he takes it. Typically more into the night. 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 G6 Manager Quality Misc See Rx Instructions .Route Rx Instructions: As directed (DME) Dexcom G6 Transmitter Device See Rx Instructions .Route Rx Instructions: As directed aspirin 81 mg Tablet,Delayed Release (Dr/Ec) 81 mg PO HS nitroglycerin [Nitrostat] 0.4 mg Tablet, Sublingual 1 tab Sublingual UD PRN (Reason: CHESTPAIN) montelukast 10 mg Tablet 10 mg PO HS PRN (Reason: pt request) albuterol sulfate 90 mcg/actuation Hfa Aerosol Inhaler 2 puff INHALATION Q6H PRN (Reason: Wheezing) pantoprazole 40 mg tablet,delayed release (DR/EC) 40 mg PO DAILY PRN (Reason: Heartburn) Zyrtec 10 mg capsule 10 mg PO DAILY PRN (Reason: Allergy Symptoms) Rx Instructions: usually does half tab at a time cholecalciferol (vitamin D3) [Vitamin D3] 25 mcg (1,000 unit) capsule 3,000 unit PO HS metoprolol succinate 25 mg tablet extended release 24 hr 25 mg PO BID nicotine 21 mg/24 hr Patch 24 Hour 1 patch TRANSDERMAL DAILY furosemide 20 mg tablet 20 mg PO DAILY Rx Instructions: patient taking differently: only takes 20mg PO daily morphine 15 mg tablet 15 mg PO Q6 PRN (Reason: Breakthrough Pain 1-6) hydroxyzine pamoate [Vistaril] 25 mg capsule 25 mg PO Q8H PRN (Reason: anxiety) 5 Days Qty: 15 1RF budesonide 0.5 mg/2 mL suspension for nebulization 0.5 mg inhalation BID insulin aspart U-100 [Novolog FlexPen U-100 Insulin] 100 unit/mL (3 mL) insulin pen 0 unit SQ WM MDD 100 units Rx Instructions: per sliding scale with meals; TDD 100 units isosorbide mononitrate 30 mg Tablet Extended Release 24 Hr 30 mg PO QAM Qty: 30 0RF rosuvastatin [Crestor] 5 mg tablet 5 mg PO QAM Toujeo SoloStar U-300 Insulin 300 unit/mL (1.5 mL) insulin pen See Rx Instructions .ROUTE .COMPLEX Rx Instructions: pt states he has been taking 140 units d/t his eating habits changing. pt states he adjusted his own insulin. per last documented dose, pt is taking 180. Referrals Referrals: Oswaldo Sampson MD [Primary Care Provider] -
[2022-11-08 18:33] LABS: Basophils # (auto) 0.04 K/uL (0-0.2); Basophils % (auto) 0.3 %; Eosinophils # (auto) 0.08 K/uL (0-0.50); Eosinophils % (auto) 0.7 %; Hematocrit (blood only) 39.5 % (42.0-52.0); Hemoglobin 12.4 g/dl (14.0-18.0); Immature Granulocytes # (auto) 0.04 K/uL (0.01-0.20); Immature Granulocytes % (auto) 0.3 %; Lymphocytes # (auto) 1.87 K/uL (1.2-3.4); Lymphocytes % (auto) 16.3 %; Mean Corpuscular Hemoglobin 24.5 pg (25.0-34.0); Mean Corpuscular Hgb Conc 31.4 g/dL (32.0-36.0); Mean Corpuscular Volume 78.1 fL (80.0-100.0); Mean Platelet Volume 8.6 fL (9.4-12.4); Monocytes # (auto) 0.97 K/uL (0.11-0.59); Monocytes % (auto) 8.4 %; Neutrophils # (auto) 8.48 K/uL (1.40-6.50); Platelet Count 266 K/uL (130-400); RDW Coefficient of Variation 18.6 % (11.5-14.5); RDW Standard Deviation 52.8 fL (36.4-46.3); Red Blood Count 5.06 M/uL (4.70-6.10); White Blood Count 11.48 K/ul (4.8-10.8)
--- NOTE | 2022-11-08 18:43 | XRay Report ---
XR chest 1V portable HISTORY: 62 years-old Male Chest pain, nonspecific COMPARISON: 10/01/2022 TECHNIQUE: AP view of the chest FINDINGS: Cardiomediastinal and hilar silhouettes are within normal limits. No pneumothorax, pleural effusion, airspace consolidation or overt pulmonary edema. Chronic left distal clavicular deformity. No acute f racture identified. IMPRESSION: No acute process. ACT 112: Negative or not required by law. The above report was generated using voice recognition software. It may contain grammatical, syntax o r spelling errors. Electronically signed by: Prashant Pope M.D. 11/08/2022 6:41 PM
[2022-11-08 18:53] LABS: Albumin Globulin Ratio 1.6 (0.9-2); Albumin Level 3.6 gm/dl (3.4-5.0); BUN Creatinine Ratio 13.6 (10-20); Bilirubin,Total 0.4 mg/dl (0.2-1.0); Calcium 8.7 mg/dl (8.6-10.3); Creatinine Clr Calc Pharmacy 82.5 ml/min; Est GFR (African American) 77.3 ml/min; Est GFR (Non-African American) 66.7 ml/min; Globulin 2.3 gm/dl (2.5-4.0); Phosphorus 3.3 mg/dl (2.5-4.9); Potassium 4.1 mmol/L (3.5-5.1); Total Protein 5.9 gm/dl (6.0-8.3)
[2022-11-08] MEDS ORDERED: NITROGLYCERIN 2% OINTMENT 30GM TUBE EXT STA (18:57)
[2022-11-08] MEDS ORDERED: MoRPHine SULFATE IR 15 MG TAB (IMMEDIATE RELEASE) PO STA (18:59)
[2022-11-08] MEDS ORDERED: NICOTINE 21 MG/24 HR TDSY TD SCH (19:00)
[2022-11-08 19:08] LABS: Troponin I High Sensitivity 385.3 pg/ml (0-20)
[2022-11-08] MEDS ORDERED: FUROSEMIDE 40 MG/4 ML VIAL IV ONE (19:12)
[2022-11-08] MEDS ORDERED: LORazepam 1 MG TAB SL STA (20:15)
[2022-11-08] MEDS ORDERED: MoRPHine SULFATE CR 15 MG TABCR PO STA (21:00)
--- NOTE | 2022-11-08 21:45 | History & Physical Report ---
Date of Service November 08, 2022 Assessment & Plan (1) Chest pain: Plan: 62-year-old male with chronic diastolic CHF, CAD s/p stent, hypertension hyperlipidemia statin intolerance, type 2 diabetes insulin requiring, chronic pain on narcotics, asthma/COPD, obstructive sleep apnea on CPAP nightly, GERD, skin cancer s/p surgery, hypogonadism on testosterone treatment, history of secondary polycythemia intermittent outpatient phlebotomy, chronic anemia baseline hemoglobin 13 says quit smoking couple of months ago recently in September was in the hospital with non-ST elevated OK s/p cardiac cath which showed severe proximal LAD in-stent restenosis and and s/p BYRON patient did fine. Comes back again with chest pains started today. Chest pain History of CAD s/p stent recently had stent placement for proximal LAD in-stent restenosis Troponin 385. On October 01 troponin was 1278. ER placed on Nitropaste which we continued We will follow serial cardiac enzymes and echocardiogram Telemetry floor N.p.o. Cardiac consult in a.m. Acute on chronic diastolic CHF Says recently gained 7 pounds Received IV Lasix 40 mg in the ER We will continue with IV Lasix 40 twice daily Follow echo Daily weights and I's and O's Cardial consult in a.m. Obstructive sleep apnea CPAP nightly with 4 L oxygen History of COPD and asthma States quit smoking couple of months ago Continue home inhalers Diabetes insulin requiring Currently n.p.o. Placed on Lantus 20 was twice daily and sliding scale Glycemic pharmacy consult Follow HbA1c and blood sugars History of CAD s/p stent On aspirin and Plavix and Imdur on Toprol and Crestor Hypertension on metoprolol and Imdur and diuretics We will monitor the blood pressure Chronic back pain On narcotics high doses We will continue home doses for now Morbid obesity Needs counseling DVT prophylaxis Lovenox Disposition telemetry floor Full code (2) Acute on chronic diastolic (congestive) heart failure: History of Present Illness Chief Complaint: Chest pain and CHF Primary Care Provider: Oswaldo Sampson MD 62-year-old male with chronic diastolic CHF, CAD s/p stent, hypertension hyperlipidemia statin intolerance, type 2 diabetes insulin requiring, chronic pain on narcotics, asthma/COPD, obstructive sleep apnea on CPAP nightly, GERD, skin cancer s/p surgery, hypogonadism on testosterone treatment, history of secondary polycythemia intermittent outpatient phlebotomy, chronic anemia baseline hemoglobin 13 says quit smoking couple of months ago recently in September was in the hospital with non-ST elevated OK s/p cardiac cath which showed severe proximal LAD in-stent restenosis and and s/p BYRON patient did fine. Comes back again with chest pains started today. Minimal activity making chest pain or short of breath. He says he took several nitros at home today and as he was not getting better he came to the ER. Currently placed on Nitropaste seems to help. Feeling anxious and tearful. Got sublingual Ativan in the ER. Has some headache. Has blurred visions. No earache. Feels congested. Feels like coughing. No nausea. Abdomen feels bloated. Has leg edema. Urine looks foamy. Somewhat constipated. Blood pressure somewhat running high. Oxygen sats are okay. Allergies Allergy/AdvReac Type Severity Reaction Status Date / Time clarithromycin Allergy Severe DAMAGED Verified 10/21/22 13:28 LIVER PER PT-REQUIRED HOSPITALIZATION latex Allergy Intermediate skin Verified 10/21/22 13:28 irritation/rash adhesive AdvReac Mild SKIN Verified 10/21/22 13:28 RASH-WITH SOME TAPES dulaglutide AdvReac Unknown hx Verified 10/21/22 13:28 pancreatitis exenatide AdvReac Unknown hx Verified 10/21/22 13:28 pancreatitis liraglutide AdvReac Unknown hx Verified 10/21/22 13:28 pancreatitis semaglutide AdvReac Unknown hx Verified 10/21/22 13:28 pancreatitis Uncoded Nonscreenable Allergy Intermediate PLASTICS: Uncoded 10/21/22 13:28 Allergen BLISTERS Home Medications Medication Instructions Recorded Confirmed Type albuterol sulfate 90 mcg/actuation 2 puff inhalation Q6H PRN Wheezing 06/26/18 11/08/22 History aerosol inhaler montelukast 10 mg tablet 10 mg PO HS PRN pt request 06/26/18 11/08/22 History nitroglycerin 0.4 mg sublingual 1 tab sublingual UD PRN CHESTPAIN 06/26/18 11/08/22 History tablet (Nitrostat) pantoprazole 40 mg tablet,delayed 40 mg PO DAILY PRN Heartburn 01/28/19 11/08/22 History release Oxygen Home #1 ea 04/30/19 11/08/22 History aspirin 81 mg tablet,delayed 81 mg PO HS 03/12/20 11/08/22 History release blood-glucose meter (OneTouch 08/14/20 11/08/22 History Verio Flex Meter) blood-glucose meter,continuous 02/03/21 11/08/22 History (Dexcom G6 [employer]) blood-glucose sensor (Dexcom G6 02/03/21 11/08/22 History Sensor device) blood-glucose transmitter (Dexcom 02/03/21 11/08/22 History G6 Transmitter device) cetirizine 10 mg capsule (Zyrtec) 10 mg PO DAILY PRN Allergy Symptoms 03/05/21 11/08/22 History cholecalciferol (vitamin D3) 25 3,000 unit PO HS 03/05/21 11/08/22 History mcg (1,000 unit) capsule (Vitamin D3) hydroxyzine pamoate 25 mg capsule 25 mg PO Q8H PRN anxiety 5 days 06/16/21 11/08/22 Rx (Vistaril) #15 caps morphine 100 mg tablet,extended 100 mg PO TID@08,14,20 10/12/21 11/08/22 History release clopidogrel 75 mg tablet (Plavix) 75 mg PO QAM 05/16/22 11/08/22 History budesonide 0.5 mg/2 mL suspension 0.5 mg inhalation BID 06/13/22 11/08/22 History for nebulization linaclotide 145 mcg capsule 145 mcg PO DAILY PRN Constipation 08/01/22 11/08/22 History (Linzess) metoprolol succinate 25 mg 25 mg PO BID 08/01/22 11/08/22 History tablet,extended release 24 hr morphine 30 mg tablet,extended 30 mg PO Q8H PRN breakthrough pain 08/01/22 11/08/22 History release 6-10 blood sugar diagnostic #900 ea 08/19/22 11/08/22 Rx furosemide 20 mg tablet 20 mg PO DAILY 09/13/22 11/08/22 History morphine 15 mg immediate release 15 mg PO Q6 PRN Breakthrough Pain 09/13/22 11/08/22 History tablet 1-6 nicotine 21 mg/24 hr daily 1 patch transdermal DAILY 09/13/22 11/08/22 History transdermal patch insulin aspart U-100 100 unit/mL 0 unit subcut WM 10/01/22 11/08/22 History (3 mL) subcutaneous pen (Novolog FlexPen U-100 Insulin aspart) isosorbide mononitrate 30 mg 30 mg PO QAM #30 tabs 10/02/22 11/08/22 Rx tablet,extended release 24 hr testosterone 2 pump topical HS #225 grams 10/24/22 11/08/22 Rx insulin glargine U-300 conc 300 See Rx Instructions .Route .COMPLEX 11/08/22 11/08/22 History unit/mL (1.5 mL) subcutaneous pen (Toujeo SoloStar U-300 Insulin) rosuvastatin 5 mg tablet (Crestor) 5 mg PO QAM 11/08/22 11/08/22 History Past Med/Surg History Medical History Bifascicular block Chronic back pain Chronic diastolic CHF (congestive heart failure) EF 63% 05/2021 echo Chronic kidney disease (CKD) COPD (chronic obstructive pulmonary disease) Degenerative disc disease Diabetes mellitus, type 2 IDDM Diverticular disease GERD (gastroesophageal reflux disease) History of acute pancreatitis RELATED TO A STONE OBSTRUCTION, 10/2017 History of basal cell carcinoma History of SCC (squamous cell carcinoma) of skin History of skin cancer S/P EXCISION OF SCALP Irritable bowel syndrome (IBS) Medical cannabis use Migraines Obesity On home oxygen therapy 3 lpm via n/c Polycythemia, secondary Post traumatic stress disorder Postlaminectomy syndrome of lumbosacral region Sleep apnea CPAP WITH 4 L/MIN HS. S/P UPPP. SOBOE (shortness of breath on exertion) Tachycardia Therapeutic opioid-induced constipation (OIC) Tinea pedis Transient ischemic attack (TIA) unsure of date - treated at [facility] -- 5+ years ago. Surgical History Fusion of spine MULTIPLE LUMBARX2 History of appendectomy History of back surgery total of 6 back surgeries. 2 failed surgeries History of cardiac cath 2017-NO STENTS History of cardiac cath 02/2022 with 1 stent (LAD) Dr Leach at [facility]. History of colonoscopy History of ERCP 11/2017 [facility] History of esophagogastroduodenoscopy (EGD) History of heart artery stent x1 stent (02/2022) History of repair of rotator cuff LEFT SHOULDER History of surgery RT ELBOW History of tonsillectomy History of uvulopalatopharyngoplasty FOR TREATMENT OF AR S/P cholecystectomy 07/02/1819 Grade 2 view, MAC 3, ETT 8. Family History Other COPD (chronic obstructive pulmonary disease) Cancer Diabetes Heart disease Hypertension Social History Smoking Status: Former smoker Tobacco Type: Cigarettes packs per day: 1; Cigarettes Per Day: 1 ppd; Second Hand Exposure: No; Do You Dip or Chew Tobacco: No; Hx Alcohol Use: No Hx Substance Use: Yes Last Used Substance: Just Prior to Arrival Last Used Substance Other:: Patient used marijuana pen last evening before coming to ER Substance Use Type Other:: MEDICAL MARIJUANA Preferred Language: Irish Communication Ability: Effective Visual Impairment: No Limitations Loom Mechanic Required: No Beliefs That Will Affect Care: None marital status: Current Living Situation: Spouse Current Living Situation Comment: [facility] Feels Safe at Home: Yes Assistive Devices: Cane and Walker Review of Systems Review of Systems: All systems reviewed & are unremarkable except as noted in Subjective Physical Exam Physical Exam: General- not in distress Head- atraumatic Eyes- PERRL ENT- oropharynx clear Neck- supple, no JVD Lungs- clear to auscultation and percussion Heart- regular rhythm; no murmur, no gallop, no rub appreciated Abdomen- normal bowel sounds, soft, nontender, somewhat distended Extremities- b/l pedeal edema +2 present. no obvious erythema seen Neuro- alert, oriented x 3; PERRL, EOMI; no facial palsy; no dysarthria Non focal. Skin- warm & dry Results & Data Results & Data Vital Signs (Past 12 Hours) Vital Signs Temp Pulse Resp BP Pulse Ox O2 Del Method O2 Flow Rate 11/08/22 21:26 113 H 11/08/22 18:13 97 Room Air 11/08/22 17:53 97 Room Air 0 11/08/22 17:53 37.3 C 105 H 20 182/87 H 97 Room Air 11/08/22 18:19 111 H Diagnostic Findings Laboratory Results WBC 11.48 K/ul (4.8-10.8) H 11/08/22 18:15 RBC 5.06 M/uL (4.70-6.10) 11/08/22 18:15 Hgb 12.4 g/dl (14.0-18.0) L 11/08/22 18:15 Hct 39.5 % (42.0-52.0) L 11/08/22 18:15 MCV 78.1 fL (80.0-100.0) L 11/08/22 18:15 MCH 24.5 pg (25.0-34.0) L 11/08/22 18:15 MCHC 31.4 g/dL (32.0-36.0) L 11/08/22 18:15 RDW Std Deviation 52.8 fL (36.4-46.3) H 11/08/22 18:15 RDW Coeff of Ben 18.6 % (11.5-14.5) H 11/08/22 18:15 Plt Count 266 K/uL (130-400) 11/08/22 18:15 MPV 8.6 fL (9.4-12.4) L 11/08/22 18:15 Immature Gran % (Auto) 0.3 % 11/08/22 18:15 Neut % (Auto) 74.0 % 11/08/22 18:15 Lymph % (Auto) 16.3 % 11/08/22 18:15 Ward % (Auto) 8.4 % 11/08/22 18:15 Eos % (Auto) 0.7 % 11/08/22 18:15 Baso % (Auto) 0.3 % 11/08/22 18:15 Neut # (Auto) 8.48 K/uL (1.40-6.50) H 11/08/22 18:15 Lymph # (Auto) 1.87 K/uL (1.2-3.4) 11/08/22 18:15 Ward # (Auto) 0.97 K/uL (0.11-0.59) H 11/08/22 18:15 Eos # (Auto) 0.08 K/uL (0-0.50) 11/08/22 18:15 Baso # (Auto) 0.04 K/uL (0-0.2) 11/08/22 18:15 Immature Gran # (Auto) 0.04 K/uL (0.01-0.20) 11/08/22 18:15 Sodium 136 mmol/L (136-145) 11/08/22 18:15 Potassium 4.1 mmol/L (3.5-5.1) 11/08/22 18:15 Chloride 101 mmol/L (98-107) 11/08/22 18:15 Carbon Dioxide 28 mmol/L (21-32) 11/08/22 18:15 Anion Gap 7 (3-11) 11/08/22 18:15 BUN 16 mg/dl (6-23) 11/08/22 18:15 Creatinine 1.18 mg/dl (0.6-1.4) 11/08/22 18:15 Est Cr Clr Drug Dosing 82.5 ml/min 11/08/22 18:15 Est GFR ( Amer) 77.3 ml/min 11/08/22 18:15 Est GFR (Non-Af Amer) 66.7 ml/min 11/08/22 18:15 BUN/Creatinine Ratio 13.6 (10-20) 11/08/22 18:15 Glucose 158 mg/dl (70-99(Fasting)) H 11/08/22 18:15 Calcium 8.7 mg/dl (8.6-10.3) 11/08/22 18:15 Phosphorus 3.3 mg/dl (2.5-4.9) 11/08/22 18:15 Magnesium 2.0 mg/dl (1.7-2.4) 11/08/22 18:15 Total Bilirubin 0.4 mg/dl (0.2-1.0) 11/08/22 18:15 AST 36 U/L (13-39) 11/08/22 18:15 ALT 20 U/L (7-52) 11/08/22 18:15 Alkaline Phosphatase 70 U/L (34-104) 11/08/22 18:15 Troponin I High Sens 385.3 pg/ml (0-20) H* 11/08/22 18:15 B-Natriuretic Peptide 39 pg/ml (0-100) 11/08/22 18:15 Total Protein 5.9 gm/dl (6.0-8.3) L 11/08/22 18:15 Albumin 3.6 gm/dl (3.4-5.0) 11/08/22 18:15 Globulin 2.3 gm/dl (2.5-4.0) L 11/08/22 18:15 Albumin/Globulin Ratio 1.6 (0.9-2) 11/08/22 18:15 Lipase 27 U/L (11-82) 11/08/22 18:15 Impressions Chest X-Ray 11/08/22 18:13 XR chest 1V portable HISTORY: 62 years-old Male Chest pain, nonspecific COMPARISON: 10/01/2022 TECHNIQUE: AP view of the chest FINDINGS: Cardiomediastinal and hilar silhouettes are within normal limits. No pneumothorax, pleural effusion, airspace consolidation or overt pulmonary edema. Chronic left distal clavicular deformity. No acute fracture identified. IMPRESSION: No acute process. ACT 112: Negative or not required by law. The above report was generated using voice recognition software. It may contain grammatical, syntax or spelling errors. Electronically signed by: Prashant Pope M.D. 11/08/2022 6:41 PM ECG Additional Comments: ECG sinus tachycardia with fusion complexes at a rate of 114, right bundle branch block, left anterior vascular block, bifascicular block Code Status & VTE Plan VTE Prophylaxis Plan VTE Prophylaxis will be ordered: Yes
[2022-11-08] MEDS ORDERED: ACETAMINOPHEN 325 MG TAB PO PRN (22:46)
[2022-11-08] MEDS ORDERED: PANTOprazole 40 MG TAB PO PRN (22:46)
[2022-11-08] MEDS ORDERED: LANTUS PER UNIT CHARGE SQ SCH (22:46)
[2022-11-08] MEDS ORDERED: PHARMACY GLYCEMIC MGMT CONSULT PRN (22:46)
[2022-11-08] MEDS ORDERED: LINACLOTIDE 145 MCG CAPSULE PO PRN (22:46)
[2022-11-08] MEDS ORDERED: DEXTROSE 50% 50 ML SYRINGE IV PRN (22:46)
[2022-11-08] MEDS ORDERED: POLYETHYLENE (MIRALAX) 17 GM PACK PO PRN (22:46)
[2022-11-08] MEDS ORDERED: CETIRIZINE HCL 10 MG TABLET PO PRN (22:46)
[2022-11-08] MEDS ORDERED: CARBOHYDRATES FOR HYPOGLYCEMIA PO PRN (22:46)
[2022-11-08] MEDS ORDERED: hydrOXYzine HCl 25 MG TAB PO PRN (22:46)
[2022-11-08] MEDS ORDERED: ALBUTEROL HFA 8 GM INHALER INH PRN (22:46)
[2022-11-08] MEDS ORDERED: NITROGLYCERIN SL 0.4 MG/TAB TAB SL PRN (22:46)
[2022-11-08] MEDS ORDERED: GLUCAGON FOR INJ 1 MG VIAL SQ PRN (22:46)
[2022-11-08] MEDS ORDERED: GLUCOSE 40% GEL 15 GM TUBE PO PRN (22:46)
[2022-11-08] MEDS ORDERED: MoRPHine SULFATE IR 15 MG TAB (IMMEDIATE RELEASE) PO PRN (22:46)
[2022-11-08] MEDS ORDERED: GLUCOSE 10 TAB/TUBE PO PRN (22:46)
[2022-11-08] MEDS ORDERED: MONTELUKAST SODIUM 10 MG TABLET PO PRN (22:46)
[2022-11-08] MEDS ORDERED: MoRPHine SULFATE CR 15 MG TABCR PO PRN ×2 (23:27→23:30)
[2022-11-08] MEDS ORDERED: ENOXAPARIN INJ 40 MG/0.4 ML SYR SQ SCH (23:30)
[2022-11-08] MEDS: METOPROLOL SUCC 25MG EXT REL TAB PO SCH (23:50)
[2022-11-08] MEDS: NICOTINE 21 MG/24 HR TDSY TD SCH (23:50)
[2022-11-09] MEDS: INSULIN ASPART PER UNIT CHARGE SC SCH ×3 (00:01→12:07)
[2022-11-09] MEDS ORDERED: Heparin IV Adult Wt-Based Standard WITH Bolus Protocol IV STA (01:43)
[2022-11-09] MEDS ORDERED: HEPARIN SODIUM/DEXTROSE 25,000 UNITS/500 ML BAG IV SCH (02:00)
[2022-11-09] MEDS ORDERED: HEPARIN SOD (PORCINE) 1000 UNIT/ML IV ONE ×2 (02:00)
[2022-11-09] MEDS: NITROGLYCERIN 2% OINTMENT 30GM TUBE EXT SCH ×3 (02:24→12:07)
[2022-11-09 02:25] LABS: INR 0.9 (0.9-1.1); Partial Thromboplastin Ratio 0.9; Partial Thromboplastin Time 25.9 Seconds (21.0-31.0); Prothrombin Time 10.2 Seconds (9.0-12.0)
[2022-11-09] MEDS ORDERED: LORazepam 1 MG TAB SL STA (02:48)
[2022-11-09 05:54] LABS: Basophils # (auto) 0.05 K/uL (0-0.2); Basophils % (auto) 0.5 %; Eosinophils # (auto) 0.17 K/uL (0-0.50); Eosinophils % (auto) 1.6 %; Hematocrit (blood only) 39.6 % (42.0-52.0); Hemoglobin 12.5 g/dl (14.0-18.0); Immature Granulocytes # (auto) 0.04 K/uL (0.01-0.20); Immature Granulocytes % (auto) 0.4 %; Lymphocytes # (auto) 2.48 K/uL (1.2-3.4); Mean Corpuscular Hemoglobin 24.7 pg (25.0-34.0); Mean Corpuscular Hgb Conc 31.6 g/dL (32.0-36.0); Mean Corpuscular Volume 78.1 fL (80.0-100.0); Mean Platelet Volume 8.5 fL (9.4-12.4); Monocytes # (auto) 1.18 K/uL (0.11-0.59); Monocytes % (auto) 10.9 %; Neutrophils # (auto) 6.86 K/uL (1.40-6.50); Neutrophils % (auto) 63.6 %; Platelet Count 250 K/uL (130-400); RDW Coefficient of Variation 19.5 % (11.5-14.5); RDW Standard Deviation 53.8 fL (36.4-46.3); Red Blood Count 5.07 M/uL (4.70-6.10); White Blood Count 10.78 K/ul (4.8-10.8)
[2022-11-09 06:10] LABS: BUN Creatinine Ratio 13.4 (10-20); Calcium 8.6 mg/dl (8.6-10.3); Creatinine Clr Calc Pharmacy 80.6 ml/min; Est GFR (African American) 76.5 ml/min; Magnesium 2.1 mg/dl (1.7-2.4); Potassium 4.3 mmol/L (3.5-5.1)
[2022-11-09] MEDS ORDERED: BUDESONIDE 0.5 MG/2 ML VIAL (PULMICORT) INH SCH (07:00)
[2022-11-09 08:19] LABS: Partial Thromboplastin Ratio 1.9
[2022-11-09 08:20] LABS: Partial Thromboplastin Time 52.2 Seconds (21.0-31.0)
[2022-11-09] MEDS: NICOTINE 21 MG/24 HR TDSY TD SCH (08:20)
[2022-11-09] MEDS: METOPROLOL SUCC 25MG EXT REL TAB PO SCH (08:23)
[2022-11-09] MEDS: MoRPHine SULFATE CR 15 MG TABCR PO SCH ×2 (08:32→14:08)
[2022-11-09] MEDS: MoRPHine SULFATE CR 60 MG TABCR PO SCH ×2 (08:44→14:08)
[2022-11-09] MEDS ORDERED: ROSUVASTATIN CALCIUM 5 MG TAB PO SCH (09:00)
[2022-11-09] MEDS ORDERED: CLOPIDOGREL BISULFATE 75 MG TAB PO SCH (09:00)
[2022-11-09] MEDS ORDERED: LANTUS PER UNIT CHARGE SC SCH (09:00)
[2022-11-09] MEDS ORDERED: ISOSORBIDE MONO EXTENDED REL 30 MG TABCR PO SCH (09:00)
[2022-11-09] MEDS ORDERED: FUROSEMIDE 40 MG/4 ML VIAL IV SCH (09:00)
[2022-11-09 09:17] LABS: Estimated Average Glucose 206 mg/dl; Hemoglobin A1C 8.8 % (4.5-5.6)
--- NOTE | 2022-11-09 09:20 | Electrocardiogram Report ---
Test Reason : Blood Pressure : / mmHG Vent. Rate : 114 BPM Atrial Rate : 114 BPM P-R Int : 138 ms QRS Dur : 128 ms QT Int : 356 ms P-R-T Axes : 050 -73 014 degrees QTc Int : 490 ms Sinus tachycardia with Fusion complexes Right bundle branch block Left anterior fascicular block ST depression in Anterior leads , consider ischemia Abnormal ECG When compared with ECG of 02-OCT-2022 05:22, ST depression in Anterior leads now present Abnormal right superior axis deviation by 46 bpm Confirmed by Fermin Teran ([id number]) on 11/09/2022 9:19:56 AM Referred By: REFERRED SELF Confirmed By:Fermin Teran
--- NOTE | 2022-11-09 09:21 | Electrocardiogram Report ---
Test Reason : Blood Pressure : / mmHG Vent. Rate : 077 BPM Atrial Rate : 077 BPM P-R Int : 176 ms QRS Dur : 126 ms QT Int : 398 ms P-R-T Axes : 056 -54 -07 degrees QTc Int : 450 ms Normal sinus rhythm Right bundle branch block Left anterior fascicular block ST depression in Anterior leads , consider ischemia Abnormal ECG When compared with ECG of 08-NOV-2022 18:07, HR has decreased by [address] depression in Anterior leads less pronounced Confirmed by Fermin Teran ([id number]) on 11/09/2022 9:21:03 AM Referred By: REFERRED SELF Confirmed By:Fermin Teran
--- NOTE | 2022-11-09 12:12 | Cardiology Consultation ---
Date of Consultation November 09, 2022 Assessment & Plan (1) Non-ST elevation MA (NSTEMI): -Patient with presenting high-sensitivity troponin level of 385 PG per mL, that has trended up to 4793 PG per mL thus far as of 11:01 AM today. This is actually higher than the 1278 noted at the time of his event in September,. -EKG with ongoing subtle ST segment depression worse than previous baseline. Tachycardia resolved. Symptoms improved. -Continue aspirin, clopidogrel, unfractioned heparin infusion, topical nitroglycerin, metoprolol succinate 25 mg twice daily, Imdur 30 mg daily. -Patient has had previous in-stent restenosis that occurred just over 6 months after his February, intervention. He did not tolerate Brilinta in the past and dyspnea. At time of last intervention, it was recommended that should he have recurrent in-stent restenosis future considerations could include consideration of single-vessel bypass. Alternatively, complex PCI perhaps with an alternative antiplatelet therapy such as prasugrel would be reasonable as he did not tolerate Brilinta in the past and his previous events took place on clopidogrel. -Case reviewed with Dr. Siu who is on-call for the inpatient cardiology service at [facility] and accepts the patient in transfer for further evaluation. I anticipate the need for repeat diagnostic cardiac catheterization.Dr Siu had the suggestion that the patient may be a candidate for brachytherapy which cannot be performed in an ad hoc manner, but may me another future consideration. -Patient to be transferred by ACL ground pending prior authorization of transfer with his [employer] insurance, and bed availability. (2) Acute on chronic diastolic (congestive) heart failure: - Chest x-ray without evidence of acute volume overload. Patient did have recent mild progressive weight gain and states he had lower extremity edema over the last few days. This resolved after a dose of furosemide 40 mg on arrival to the emergency room. -We will continue furosemide 40 mg twice daily for now. History of Present Illness Attending Physician: Luis Sarabia MD History of Present Illness Nabil Cole is a 62-year-old male seen in cardiology consultation per the request of Dr Manuel for the evaluation of chest discomfort. Patient is accompanied by his brother and his spouse at the bedside. He states that over the last month, since his last cardiac catheterization and PCI of the proximal left anterior sending coronary artery, he has had recurrent progressive chest tightness that occurs with aerobic exertion and with emotional distress. He has been taking nitroglycerin on a regular basis for the last several weeks and states that he took 15 sublingual nitroglycerin tablets yesterday before deciding to come to the emergency department. At the time my assessment, his chest discomfort has resolved, with an occasional twinge that he grades as being 1/10, down from 8/10 yesterday. EKG on presentation last evening revealed sinus tachycardia 114 bpm with chronic bifascicular block, and mild anterior ST segment depression. Repeat EKG today reveals sinus rhythm at 77 bpm with bifascicular block, the ST segment depression in the anterior leads has improved, but still persist to a subtle degree in V3, and is also noted in the lateral precordial leads and this is new compared to 11/01/2022. The patient's primary lard refiner is Dr. Johnson of our practice with most recent outpatient visit earlier this month on 10/21/2022. The patient has a complex recent interventional history having presented with a non-ST segment elevation myocardial infarction in February, with greater than 70% culprit stenosis of the proximal left anterior descending coronary artery for which patient underwent PCI, implantation of a 2.75 mm x 22 mm [place] drug-eluting stent. He presented again in Aug, 2022 with symptoms suggestive of progressive unstable angina. Cardiac catheterization revealed mild in-stent restenosis at that time. He ultimately presented again in September,, just over a month ago with recurrent angina, high-sensitivity troponin level of 1278 PG per mL at that time. Repeat cardiac catheterization to place the patient was found to have significant in-stent restenosis of the previously stented proximal LAD for which she underwent repeat PCI with implantation of a 2.75 x 23 mm [place] drug- eluting stent. Patient states that he has been adherent with his aspirin and clopidogrel since his intervention in September, without missing doses. He recently see smoking and he attributes this to an increase in his anxiety and appetite and has gained some weight. He does have a history of diastolic dysfunction however his dose of diuretic has been somewhat limited as he attributes escalated diuretic dosing to causing him constipation. Cardiac History: CAD, non-STEMI February,, PCI drug-eluting stent to proximal LAD, mild in- stent restenosis at time of presentation Aug, 2022 for which medical management recommended at time of cardiac catheterization then. NSTEMI 617/, in-stent restenosis, prompting PCI, repeat drug-eluting stent Patient did not tolerate Brilinta at the time of his February, intervention and therefore has been transitioned to clopidogrel. Of note, patient had gross hematuria in Aug, 2022 prompting cystoscopy, and treatment of a urethral stricture. He had been off clopidogrel for 2 days at that time leading up to his September intervention Chronic bifascicular block Chronic back pain, narcotic dependent, Type 2 diabetes mellitus requiring insulin Longstanding cigarette smoking, now with cessation Dyslipidemia with low HDL, poor statin intolerance Obstructive sleep apnea with nocturnal CPAP and oxygen supplementation Polycythemia with routine phlebotomy Allergies Allergy/AdvReac Type Severity Reaction Status Date / Time clarithromycin Allergy Severe DAMAGED Verified 10/21/22 13:28 LIVER PER PT-REQUIRED HOSPITALIZATION latex Allergy Intermediate skin Verified 10/21/22 13:28 irritation/rash adhesive AdvReac Mild SKIN Verified 10/21/22 13:28 RASH-WITH SOME TAPES dulaglutide AdvReac Unknown hx Verified 10/21/22 13:28 pancreatitis exenatide AdvReac Unknown hx Verified 10/21/22 13:28 pancreatitis liraglutide AdvReac Unknown hx Verified 10/21/22 13:28 pancreatitis semaglutide AdvReac Unknown hx Verified 10/21/22 13:28 pancreatitis Home Medications Medication Instructions Recorded Confirmed Type albuterol sulfate 90 mcg/actuation 2 puff inhalation Q6H PRN Wheezing 06/26/18 11/08/22 History aerosol inhaler montelukast 10 mg tablet 10 mg PO HS PRN pt request 06/26/18 11/08/22 History nitroglycerin 0.4 mg sublingual 1 tab sublingual UD PRN CHESTPAIN 06/26/18 11/08/22 History tablet (Nitrostat) pantoprazole 40 mg tablet,delayed 40 mg PO DAILY PRN Heartburn 01/28/19 11/08/22 History release Oxygen Home #1 ea 04/30/19 11/08/22 History aspirin 81 mg tablet,delayed 81 mg PO HS 03/12/20 11/08/22 History release blood-glucose meter (OneTouch 08/14/20 11/08/22 History Verio Flex Meter) blood-glucose meter,continuous 02/03/21 11/08/22 History (Dexcom G6 Mica Patcher) blood-glucose sensor (Dexcom G6 02/03/21 11/08/22 History Sensor device) blood-glucose transmitter (Dexcom 02/03/21 11/08/22 History G6 Transmitter device) cetirizine 10 mg capsule (Zyrtec) 10 mg PO DAILY PRN Allergy Symptoms 03/05/21 11/08/22 History cholecalciferol (vitamin D3) 25 3,000 unit PO HS 03/05/21 11/08/22 History mcg (1,000 unit) capsule (Vitamin D3) hydroxyzine pamoate 25 mg capsule 25 mg PO Q8H PRN anxiety 5 days 06/16/21 11/08/22 Rx (Vistaril) #15 caps morphine 100 mg tablet,extended 100 mg PO TID@08,14,20 10/12/21 11/08/22 History release clopidogrel 75 mg tablet (Plavix) 75 mg PO QAM 05/16/22 11/08/22 History budesonide 0.5 mg/2 mL suspension 0.5 mg inhalation BID 06/13/22 11/08/22 History for nebulization linaclotide 145 mcg capsule 145 mcg PO DAILY PRN Constipation 08/01/22 11/08/22 History (Linzess) metoprolol succinate 25 mg 25 mg PO BID 08/01/22 11/08/22 History tablet,extended release 24 hr morphine 30 mg tablet,extended 30 mg PO Q8H PRN breakthrough pain 08/01/22 11/08/22 History release 6-10 blood sugar diagnostic #900 ea 08/19/22 11/08/22 Rx furosemide 20 mg tablet 20 mg PO DAILY 09/13/22 11/08/22 History morphine 15 mg immediate release 15 mg PO Q6 PRN Breakthrough Pain 09/13/22 11/08/22 History tablet 1-6 nicotine 21 mg/24 hr daily 1 patch transdermal DAILY 09/13/22 11/08/22 History transdermal patch insulin aspart U-100 100 unit/mL 0 unit subcut WM 10/01/22 11/08/22 History (3 mL) subcutaneous pen (Novolog FlexPen U-100 Insulin aspart) isosorbide mononitrate 30 mg 30 mg PO QAM #30 tabs 10/02/22 11/08/22 Rx tablet,extended release 24 hr testosterone 2 pump topical HS #225 grams 10/24/22 11/08/22 Rx insulin glargine U-300 conc 300 See Rx Instructions .Route .COMPLEX 11/08/22 11/08/22 History unit/mL (1.5 mL) subcutaneous pen (Toujeo SoloStar U-300 Insulin) rosuvastatin 5 mg tablet (Crestor) 5 mg PO QAM 11/08/22 11/08/22 History Patient History Medical History Bifascicular block Chronic back pain Chronic diastolic CHF (congestive heart failure) EF 63% 05/2021 echo Chronic kidney disease (CKD) COPD (chronic obstructive pulmonary disease) Degenerative disc disease Diabetes mellitus, type 2 IDDM Diverticular disease GERD (gastroesophageal reflux disease) History of acute pancreatitis RELATED TO A STONE OBSTRUCTION, 10/2017 History of basal cell carcinoma History of SCC (squamous cell carcinoma) of skin History of skin cancer S/P EXCISION OF SCALP Irritable bowel syndrome (IBS) Medical cannabis use Migraines Obesity On home oxygen therapy 3 lpm via n/c Polycythemia, secondary Post traumatic stress disorder Postlaminectomy syndrome of lumbosacral region Sleep apnea CPAP WITH 4 L/MIN HS. S/P UPPP. SOBOE (shortness of breath on exertion) Tachycardia Therapeutic opioid-induced constipation (OIC) Tinea pedis Transient ischemic attack (TIA) unsure of date - treated at [facility] -- 5+ years ago. Surgical History Fusion of spine MULTIPLE LUMBARX2 History of appendectomy History of back surgery total of 6 back surgeries. 2 failed surgeries History of cardiac cath 2017-NO STENTS History of cardiac cath 02/2022 with 1 stent (LAD) Dr Leach at [facility]. History of colonoscopy History of ERCP 11/2017 [facility] History of esophagogastroduodenoscopy (EGD) History of heart artery stent x1 stent (02/2022) History of repair of rotator cuff LEFT SHOULDER History of surgery RT ELBOW History of tonsillectomy History of uvulopalatopharyngoplasty FOR TREATMENT OF AR S/P cholecystectomy 07/02/1819 Grade 2 view, MAC 3, ETT 8. Family History Other COPD (chronic obstructive pulmonary disease) Cancer Diabetes Heart disease Hypertension Social History Smoking Status: Former smoker Tobacco Type: Cigarettes packs per day: 1; Cigarettes Per Day: 1 ppd; Second Hand Exposure: No; Do You Dip or Chew Tobacco: No; Tobacco Cessation Education Requested by Patient: No Hx Alcohol Use: No Hx Substance Use: Yes Last Used Substance: Just Prior to Arrival Last Used Substance Other:: Patient used marijuana pen last evening before coming to ER Substance Use Type Other:: MEDICAL MARIJUANA Preferred Language: German Communication Ability: Effective Visual Impairment: No Limitations Manager Water Required: No Beliefs That Will Affect Care: None marital status: Current Living Situation: Spouse Current Living Situation Comment: [employer] Other Information That Helps Us Care for You: No Feels Safe at Home: Yes Safety Concerns: Feels Safe At This Time Assistive Devices: Cane, CPAP and Glasses Review of Systems Review of Systems: All systems reviewed & are unremarkable except as noted in HPI & below Physical Exam Constitutional: WD/WN, vitals as above Eyes: PERRL, conjunctivae normal, anicteric sclerae Respiratory: normal respiratory effort, lungs clear to auscultation Cardiovascular: RRR, no murmur, no edema Gastrointestinal (Abdomen): normal bowel sounds, soft, nontender, no hepatosplenomegaly Neurologic: PERRL, EOMI, accommodation nl, no face palsy, no dysarthria Results & Data Vital Signs (Past 12 Hours) Vital Signs Temp Pulse Pulse Resp BP BP Pulse Ox 11/09/22 11:38 37.2 C 84 18 150/82 H 94 11/09/22 08:22 81 16 104/67 96 11/09/22 07:38 11/09/22 07:15 83 18 94 11/09/22 07:07 71 11/09/22 03:21 88 14 92 11/09/22 02:38 36.8 C 81 18 116/70 97 O2 Del Method O2 Flow Rate 11/09/22 11:38 Room Air 11/09/22 08:22 CPAP 11/09/22 07:38 Nasal Cannula 2 11/09/22 07:15 Nasal Cannula 3 11/09/22 07:07 11/09/22 03:21 4 11/09/22 02:38 Nasal CPAP Laboratory Results Cardiac Enzymes 11/08/22 11/08/22 11/09/22 Range/Units 18:15 18:15 00:21 AST 36 (13-39) U/L Troponin I High Sens 385.3 H* 1955.6 H* D (0-20) pg/ml B-Natriuretic Peptide 39 (0-100) pg/ml 11/09/22 11/09/22 Range/Units 05:32 11:01 AST (13-39) U/L Troponin I High Sens 4019.8 H* D 4793.9 H* (0-20) pg/ml B-Natriuretic Peptide (0-100) pg/ml Coagulation 11/08/22 11/08/22 11/09/22 Range/Units 18:15 18:25 07:20 PT 10.2 (9.0-12.0) Seconds APTT 25.9 52.2 H* (21.0-31.0) Seconds B-Natriuretic Peptide 39 (0-100) pg/ml CBC 11/08/22 11/09/22 Range/Units 18:15 05:32 WBC 11.48 H 10.78 (4.8-10.8) K/ul RBC 5.06 5.07 (4.70-6.10) M/uL Hgb 12.4 L 12.5 L (14.0-18.0) g/dl Hct 39.5 L 39.6 L (42.0-52.0) % Plt Count 266 250 (130-400) K/uL Neut # (Auto) 8.48 H 6.86 H (1.40-6.50) K/uL Lymph # (Auto) 1.87 2.48 (1.2-3.4) K/uL Whiteside # (Auto) 0.97 H 1.18 H (0.11-0.59) K/uL Eos # (Auto) 0.08 0.17 (0-0.50) K/uL Baso # (Auto) 0.04 0.05 (0-0.2) K/uL Comprehensive Metabolic Panel 11/08/22 11/09/22 Range/Units 18:15 05:32 Sodium 136 137 (136-145) mmol/L Potassium 4.1 4.3 (3.5-5.1) mmol/L Chloride 101 101 (98-107) mmol/L Carbon Dioxide 28 32 (21-32) mmol/L BUN 16 16 (6-23) mg/dl Creatinine 1.18 1.19 (0.6-1.4) mg/dl Glucose 158 H 170 H (70-99(Fasting)) mg/dl Calcium 8.7 8.6 (8.6-10.3) mg/dl AST 36 (13-39) U/L ALT 20 (7-52) U/L Alkaline Phosphatase 70 (34-104) U/L Total Protein 5.9 L (6.0-8.3) gm/dl Albumin 3.6 (3.4-5.0) gm/dl Diagnostic Findings EKG performed on arrival last evening and again this morning reviewed, interpreted independently, as noted in HPI Echocardiogram performed today and interpreted dependently, LVEF normal, 60%, subtle mid and apical LAD territory wall motion abnormality new compared to September,
--- NOTE | 2022-11-09 13:35 | Hospitalist Progress Note ---
Date of Service November 09, 2022 Assessment & Plan Admission and Anticipated Discharge Date Admission Date: November 08, 2022 Results & Data Results & Data Vital Signs (Past 12 Hours) Vital Signs Temp Pulse Pulse Resp BP BP Pulse Ox 11/09/22 11:38 37.2 C 84 18 150/82 H 94 11/09/22 08:22 81 16 104/67 96 11/09/22 07:38 11/09/22 07:15 83 18 94 11/09/22 07:07 71 11/09/22 03:21 88 14 92 11/09/22 02:38 36.8 C 81 18 116/70 97 O2 Del Method O2 Flow Rate 11/09/22 11:38 Room Air 11/09/22 08:22 CPAP 11/09/22 07:38 Nasal Cannula 2 11/09/22 07:15 Nasal Cannula 3 11/09/22 07:07 11/09/22 03:21 4 11/09/22 02:38 Nasal CPAP Medications Administered Current Inpatient Medications Acetaminophen (Acetaminophen 325 Mg Tab) 650 mg PO Q4H PRN PRN Reason: Pain or Fever Stop: 12/08/22 22:45 Last Admin: 11/08/22 23:48 Dose: 650 mg Albuterol (Albuterol Hfa 8 Gm Inhaler) 2 puffs INH Q6H PRN PRN Reason: Wheezing Stop: 12/08/22 22:45 Aspirin (Aspirin 81 Mg Ectab) 81 mg PO HS [facility] Stop: 12/09/22 20:59 Budesonide (Budesonide 0.5 Mg/2 Ml Vial (Pulmicort)) 0.5 mg INH BIDR [facility] Stop: 12/09/22 06:59 Last Admin: 11/09/22 07:15 Dose: 0.5 mg Cetirizine HCl (Cetirizine Hcl 10 Mg Tablet) 10 mg PO DAILY PRN PRN Reason: Allergy Symptoms Clopidogrel Bisulfate (Clopidogrel Bisulfate 75 Mg Tab) 75 mg PO QAM [facility] Stop: 12/09/22 08:59 Last Admin: 11/09/22 08:23 Dose: 75 mg Dextrose (Dextrose 50% 50 Ml Syringe) 25 - 50 ml IV UD PRN; Protocol PRN Reason: Hypoglycemia Protocol Stop: 12/08/22 22:45 Furosemide (Furosemide 40 Mg/4 Ml Vial) 40 mg IV [id number] [facility] Stop: 12/09/22 08:59 Last Admin: 11/09/22 08:25 Dose: 40 mg Glucagon (Glucagon For Inj 1 Mg Vial) 1 mg SQ UD PRN; Protocol PRN Reason: Hypoglycemia Protocol Stop: 12/08/22 22:45 Glucose (Glucose 10 Tab/Tube) 4 - 8 tab PO UD PRN; Protocol PRN Reason: Hypoglycemia Treatment Stop: 12/08/22 22:45 Glucose (Glucose 40% Gel 15 Gm Tube) 15 - 30 gm PO UD PRN; Protocol PRN Reason: Hypoglycemia Protocol Stop: 12/08/22 22:45 Hydroxyzine HCl (Hydroxyzine Hcl 25 Mg Tab) 25 mg PO Q8H PRN PRN Reason: anxiety Stop: 12/08/22 22:45 Last Admin: 11/08/22 23:51 Dose: 25 mg Heparin Sodium/Dextrose (Heparin Sodium/Dextrose) 25,000 units in 500 mls @ 31 mls/hr IV .Q16H8M [facility]; Protocol Stop: 12/09/22 01:59 Last Titration: 11/09/22 07:03 Dose: 1,550 units/hr, 31 mls/hr Insulin Aspart (Insulin Aspart Per Unit Charge) 0 units SC Q6 [facility] Stop: 12/08/22 23:29 Last Admin: 11/09/22 12:07 Dose: 2 units Isosorbide Mononitrate (Isosorbide Grimes Extended Rel 30 Mg Tabcr) 30 mg PO QAM [facility] Stop: 12/09/22 08:59 Last Admin: 11/09/22 08:24 Dose: Not Given Linaclotide (Linaclotide 145 Mcg Capsule) 145 mcg PO DAILY PRN PRN Reason: ` Stop: 12/08/22 22:45 Metoprolol Succinate (Metoprolol Succ 25mg Ext Rel Tab) 25 mg PO BID [facility] Stop: 12/08/22 22:45 Last Admin: 11/09/22 08:23 Dose: 25 mg Miscellaneous (Remove Nicoderm Patch) 1 each N/A DAILY@0859 [facility] Stop: 12/09/22 08:58 Last Admin: 11/09/22 08:20 Dose: 1 each Miscellaneous (Carbohydrates For Hypoglycemia ) 15 - 30 gm PO UD PRN PRN Reason: Hypoglycemia Protocol Stop: 12/08/22 22:45 Miscellaneous Information (Pharmacy Glycemic Mgmt Consult) 1 each N/A UD PRN PRN Reason: Consult Stop: 12/08/22 22:45 Montelukast Sodium (Montelukast Sodium 10 Mg Tablet) 10 mg PO HS PRN PRN Reason: pt request Stop: 12/08/22 22:45 Morphine Sulfate (Morphine Sulfate Cr 15 Mg Tabcr) 45 mg PO TID@08,14,20 [facility] Stop: 11/23/22 07:59 Last Admin: 11/09/22 08:32 Dose: 45 mg Morphine Sulfate (Morphine Sulfate Ir 15 Mg Tab (Immediate Release)) 15 mg PO Q6H PRN PRN Reason: Breakthrough Pain 1-5 Stop: 11/22/22 22:45 Last Admin: 11/08/22 23:49 Dose: 15 mg Morphine Sulfate (Morphine Sulfate Cr 60 Mg Tabcr) 60 mg PO 0800,1400,2000 [facility] Stop: 11/23/22 07:59 Last Admin: 11/09/22 08:44 Dose: 60 mg Morphine Sulfate (Morphine Sulfate Cr 15 Mg Tabcr) 30 mg PO Q6H PRN PRN Reason: breakthrough pain 6-10 Stop: 11/22/22 23:26 Last Admin: 11/09/22 03:25 Dose: 30 mg Nicotine (Nicotine 21 Mg/24 Hr Tdsy) 21 mg TD DAILY [facility] Stop: 12/08/22 23:29 Last Admin: 11/09/22 08:20 Dose: 21 mg Nitroglycerin (Nitroglycerin Sl 0.4 Mg/Tab Tab) 0.4 mg SL Q5M PRN PRN Reason: Chest Pain Stop: 12/08/22 22:45 Nitroglycerin (Nitroglycerin 2% Ointment 30gm Tube) 1 inch EXT Q6 [facility] Stop: 12/09/22 01:44 Last Admin: 11/09/22 12:07 Dose: 1 inch Pantoprazole Sodium (Pantoprazole 40 Mg Tab) 40 mg PO DAILY PRN PRN Reason: Heartburn Stop: 12/08/22 22:45 Polyethylene Glycol (Polyethylene (Miralax) 17 Gm Pack) 17 gm PO DAILY PRN PRN Reason: Constipation Stop: 12/08/22 22:45 Rosuvastatin Calcium (Rosuvastatin Calcium 5 Mg Tab) 5 mg PO QAM [facility] Stop: 12/09/22 08:59 Last Admin: 11/09/22 08:23 Dose: 5 mg Vitamin D (Cholecalciferol 1,000 Units 25 Mcg Tab) 3,000 units PO HS [facility] Stop: 12/09/22 20:59
--- NOTE | 2022-11-09 14:25 | Communication Note ---
Date of Service: November 09, 2022 Patient and family expressed concerns about the length of trip by ambulance. After further consideration with regards to his episodic angina and climbing t roponin , arrangements have been arranged for transfer by air.
[2022-11-09] MEDS ORDERED: ASPIRIN 81 MG ECTAB PO SCH (21:00)
[2022-11-09] MEDS ORDERED: CHOLECALCIFEROL 1,000 UNITS 25 MCG TAB PO SCH (21:00)
--- NOTE | 2022-11-13 19:09 | Discharge Summary ---
Date of Service November 13, 2022 Admission HPI Per Admitting Provider 62-year-old male with chronic diastolic CHF, CAD s/p stent, hypertension hyperlipidemia statin intolerance, type 2 diabetes insulin requiring, chronic pain on narcotics, asthma/COPD, obstructive sleep apnea on CPAP nightly, GERD, skin cancer s/p surgery, hypogonadism on testosterone treatment, history of secondary polycythemia intermittent outpatient phlebotomy, chronic anemia baseline hemoglobin 13 says quit smoking couple of months ago recently in September was in the hospital with non-ST elevated MS s/p cardiac cath which showed severe proximal LAD in-stent restenosis and and s/p BYRON patient did fine. Comes back a gain with chest pains started today. Minimal activity making chest pain or short of breath. He says he took several nitros at home today and as he was not getting better he came to the ER. Currently placed on Nitropaste seems to help. Feeling anxious and tearful. Got sublingual Ativan in the ER. Has some headache. Has blurred visions. No earache. Feels congested. Feels like coughing. No nausea. Abdomen feels bloated. Has leg edema. Urine looks foamy. Somewhat constipated. Blood pressure somewhat running high. Oxygen sats are okay. Principal Diagnosis NSTEMI Discharge Exam Patient was seen on day of transfer.. He is comfortable. No acute distress. Breathing on room air. Awake, alert, answering questions appropriately Discharge Data Allergies Allergy/AdvReac Type Severity Reaction Status Date / Time clarithromycin Allergy Severe DAMAGED Verified 10/21/22 13:28 LIVER PER PT-REQUIRED HOSPITALIZATION latex Allergy Intermediate skin Verified 10/21/22 13:28 irritation/rash adhesive AdvReac Mild SKIN Verified 10/21/22 13:28 RASH-WITH SOME TAPES dulaglutide AdvReac Unknown hx Verified 10/21/22 13:28 pancreatitis exenatide AdvReac Unknown hx Verified 10/21/22 13:28 pancreatitis liraglutide AdvReac Unknown hx Verified 10/21/22 13:28 pancreatitis semaglutide AdvReac Unknown hx Verified 10/21/22 13:28 pancreatitis Consultations 11/08/22 19:19 ED Decision to Admit Stat 11/09/22 08:00 Consult Cardiology Routine 11/09/22 13:21 Burn CD for patient Stat Hospital Course (1) Chest pain: 62-year-old male with chronic diastolic CHF, CAD s/p stent, hypertension hyperlipidemia statin intolerance, type 2 diabetes insulin requiring, chronic pain on narcotics, asthma/COPD, obstructive sleep apnea on CPAP nightly, GERD, skin cancer s/p surgery, hypogonadism on testosterone treatment, history of s econdary polycythemia intermittent outpatient phlebotomy, chronic anemia baseline hemoglobin 13 says quit smoking couple of months ago recently in September was in the hospital with non-ST elevated MS s/p cardiac cath which showed severe proximal LAD in-stent restenosis and and s/p BYRON patient did fine. Comes back again with chest pains started today. Here, he was found to have NSTEMI. Patient was seen by Cardiology and it was recommended that he be transferred to [facility] for evaluation for single vessel CABG or brachytherapy. He was accepted by Dr Siu. Patient with chronic back pain and with his rising troponin, it was decided that he would be transferred via [facility]. (2) Acute on chronic diastolic (congestive) heart failure: Total Time Total Time Spent Total Time Spent (In Minutes): 35 Discharge Plan Discharge Items Patient Disposition: Transfer Acute Care Hospital Reason For Visit: CHEST PAIN Discharge Diagnosis: NSTEMI Condition on Discharge: Fair Activity: Resume your previous activity Non-emergency contact: Substance Abuse Rn Call non-emergency contact if: you have any medication questions Follow-up/Referrals: Oswaldo Sampson MD [Primary Care Provider] - Diet: Nothing by Mouth Addtl Attending Provider Instructions: Accepting physician, Dr Siu Current Inpatient Medications Recommend diabetes management by glycemic pharmacist Patient received Insulin lantus 30 units 11/09/22 at 9am. Acetaminophen (Acetaminophen 325 Mg Tab) 650 mg PO Q4H PRN PRN Reason: Pain or Fever Stop: 12/08/22 22:45 Last Admin: 11/08/22 23:48 Dose: 650 mg Albuterol (Albuterol Hfa 8 Gm Inhaler) 2 puffs INH Q6H PRN PRN Reason: Wheezing Stop: 12/08/22 22:45 Aspirin (Aspirin 81 Mg Ectab) 81 mg PO HS CHASITY Stop: 12/09/22 20:59 Budesonide (Budesonide 0.5 Mg/2 Ml Vial (Pulmicort)) 0.5 mg INH BIDR CHASITY Stop: 12/09/22 06:59 Last Admin: 07/26/23 07:15 Dose: 0.5 mg Cetirizine HCl (Cetirizine Hcl 10 Mg Tablet) 10 mg PO DAILY PRN PRN Reason: Allergy Symptoms Clopidogrel Bisulfate (Clopidogrel Bisulfate 75 Mg Tab) 75 mg PO QAM COUNTS INCLUDE 234 BEDS AT THE [facility] Stop: 12/09/22 08:59 Last Admin: 11/09/22 08:23 Dose: 75 mg Dextrose (Dextrose 50% 50 Ml Syringe) 25 - 50 ml IV UD PRN; Protocol PRN Reason: Hypoglycemia Protocol Stop: 12/08/22 22:45 Furosemide (Furosemide 40 Mg/4 Ml Vial) 40 mg IV BID17 COUNTS INCLUDE 234 BEDS AT THE [facility] Stop: 12/09/22 08:59 Last Admin: 11/09/22 08:25 Dose: 40 mg Glucagon (Glucagon For Inj 1 Mg Vial) 1 mg SQ UD PRN; Protocol PRN Reason: Hypoglycemia Protocol Stop: 12/08/22 22:45 Glucose (Glucose 10 Tab/Tube) 4 - 8 tab PO UD PRN; Protocol PRN Reason: Hypoglycemia Treatment Stop: 12/08/22 22:45 Glucose (Glucose 40% Gel 15 Gm Tube) 15 - 30 gm PO UD PRN; Protocol PRN Reason: Hypoglycemia Protocol Stop: 12/08/22 22:45 Hydroxyzine HCl (Hydroxyzine Hcl 25 Mg Tab) 25 mg PO Q8H PRN PRN Reason: anxiety Stop: 12/08/22 22:45 Last Admin: 11/08/22 23:51 Dose: 25 mg Heparin Sodium/Dextrose (Heparin Sodium/Dextrose) 25,000 units in 500 mls @ 31 mls/hr IV .Q16H8M COUNTS INCLUDE 234 BEDS AT THE [facility]; Protocol Stop: 12/09/22 01:59 Last Titration: 11/09/22 07:03 Dose: 1,550 units/hr, 31 mls/hr Insulin Aspart (Insulin Aspart Per Unit Charge) 0 units SC Q6 COUNTS INCLUDE 234 BEDS AT THE [facility] Stop: 12/08/22 23:29 Last Admin: 11/09/22 12:07 Dose: 2 units Isosorbide Mononitrate (Isosorbide Tift Extended Rel 30 Mg Tabcr) 30 mg PO QAM COUNTS INCLUDE 234 BEDS AT THE [facility] Stop: 12/09/22 08:59 Last Admin: 11/09/22 08:24 Dose: Not Given Linaclotide (Linaclotide 145 Mcg Capsule) 145 mcg PO DAILY PRN PRN Reason: ` Stop: 12/08/22 22:45 Metoprolol Succinate (Metoprolol Succ 25mg Ext Rel Tab) 25 mg PO BID COUNTS INCLUDE 234 BEDS AT THE [facility] Stop: 12/08/22 22:45 Last Admin: 11/09/22 08:23 Dose: 25 mg Miscellaneous (Remove Nicoderm Patch) 1 each N/A DAILY@0859 COUNTS INCLUDE 234 BEDS AT THE [facility] Stop: 12/09/22 08:58 Last Admin: 11/09/22 08:20 Dose: 1 each Miscellaneous (Carbohydrates For Hypoglycemia ) 15 - 30 gm PO UD PRN PRN Reason: Hypoglycemia Protocol Stop: 12/08/22 22:45 Miscellaneous Information (Pharmacy Glycemic Mgmt Consult) 1 each N/A UD PRN PRN Reason: Consult Stop: 12/08/22 22:45 Montelukast Sodium (Montelukast Sodium 10 Mg Tablet) 10 mg PO HS PRN PRN Reason: pt request Stop: 12/08/22 22:45 Morphine Sulfate (Morphine Sulfate Cr 15 Mg Tabcr) 45 mg PO TID@08,14,20 COUNTS INCLUDE 234 BEDS AT THE [facility] Stop: 11/23/22 07:59 Last Admin: 11/09/22 08:32 Dose: 45 mg Morphine Sulfate (Morphine Sulfate Ir 15 Mg Tab (Immediate Release)) 15 mg PO Q6H PRN PRN Reason: Breakthrough Pain 1-5 Stop: 11/22/22 22:45 Last Admin: 11/08/22 23:49 Dose: 15 mg Morphine Sulfate (Morphine Sulfate Cr 60 Mg Tabcr) 60 mg PO 0800,1400,2000 COUNTS INCLUDE 234 BEDS AT THE [facility] Stop: 11/23/22 07:59 Last Admin: 11/09/22 08:44 Dose: 60 mg Morphine Sulfate (Morphine Sulfate Cr 15 Mg Tabcr) 30 mg PO Q6H PRN PRN Reason: breakthrough pain 6-10 Stop: 11/22/22 23:26 Last Admin: 11/09/22 03:25 Dose: 30 mg Nicotine (Nicotine 21 Mg/24 Hr Tdsy) 21 mg TD DAILY COUNTS INCLUDE 234 BEDS AT THE [facility] Stop: 12/08/22 23:29 Last Admin: 11/09/22 08:20 Dose: 21 mg Nitroglycerin (Nitroglycerin Sl 0.4 Mg/Tab Tab) 0.4 mg SL Q5M PRN PRN Reason: Chest Pain Stop: 12/08/22 22:45 Nitroglycerin (Nitroglycerin 2% Ointment 30gm Tube) 1 inch EXT Q6 CHASITY Stop: 12/09/22 01:44 Last Admin: 11/09/22 12:07 Dose: 1 inch Pantoprazole Sodium (Pantoprazole 40 Mg Tab) 40 mg PO DAILY PRN PRN Reason: Heartburn Stop: 12/08/22 22:45 Polyethylene Glycol (Polyethylene (Miralax) 17 Gm Pack) 17 gm PO DAILY PRN PRN Reason: Constipation Stop: 12/08/22 22:45 Rosuvastatin Calcium (Rosuvastatin Calcium 5 Mg Tab) 5 mg PO QAM CHASITY Stop: 12/09/22 08:59 Last Admin: 11/09/22 08:23 Dose: 5 mg Vitamin D (Cholecalciferol 1,000 Units 25 Mcg Tab) 3,000 units PO HS CHASITY Stop: 12/09/22 20:59 Pending Studies at Discharge: No Stand-Alone Forms: My [facility] Skilled Items Patient informed of condition?: Yes DNR: No Discharge Level of Care: Other Communicable Disease: No Discharge Prognosis: Stable Lines: Peripheral IV Urinary Catheter: No Medications and DC Order Prescriptions: Continued clopidogrel [Plavix] 75 mg tablet 75 mg PO QAM (DME) blood sugar diagnostic Strip See Rx Instructions .ROUTE .MEDSUPPLY Qty: 900 3RF Rx Instructions: test 10 times QD. OneTouch Ultra (DME) Oxygen Home Liters Per Minute See Rx Instructions .ROUTE .MEDSUPPLY Qty: 1 Rx Instructions: 4 LPM at night with CPAP. pt also wears O2 at home prn throughout the day. morphine 30 mg tablet extended release 30 mg PO Q8H PRN (Reason: breakthrough pain 6-10) Rx Instructions: Per pt he takes 3 times daily. Depends on his day how he takes it. Typically more into the night. 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 Misc See Rx Instructions .Route Rx Instructions: As directed (DME) Dexcom G6 Transmitter Device See Rx Instructions .Route Rx Instructions: As directed aspirin 81 mg Tablet,Delayed Release (/Ec) 81 mg PO HS montelukast 10 mg Tablet 10 mg PO HS PRN (Reason: pt request) albuterol sulfate 90 mcg/actuation Hfa Aerosol Inhaler 2 puff INHALATION Q6H PRN (Reason: Wheezing) pantoprazole 40 mg tablet,delayed release (DR/EC) 40 mg PO DAILY PRN (Reason: Heartburn) Zyrtec 10 mg capsule 10 mg PO DAILY PRN (Reason: Allergy Symptoms) Rx Instructions: usually does half tab at a time cholecalciferol (vitamin D3) [Vitamin D3] 25 mcg (1,000 unit) capsule 3,000 unit PO HS metoprolol succinate 25 mg tablet extended release 24 hr 25 mg PO BID nicotine 21 mg/24 hr Patch 24 Hour 1 patch TRANSDERMAL DAILY morphine 15 mg tablet 15 mg PO Q6 PRN (Reason: Breakthrough Pain 1-6) hydroxyzine pamoate [Vistaril] 25 mg capsule 25 mg PO Q8H PRN (Reason: anxiety) 5 Days Qty: 15 1RF budesonide 0.5 mg/2 mL suspension for nebulization 0.5 mg inhalation BID isosorbide mononitrate 30 mg Tablet Extended Release 24 Hr 30 mg PO QAM Qty: 30 0RF rosuvastatin [Crestor] 5 mg tablet 5 mg PO QAM Discontinued testosterone 20.25 mg/1.25 gram (1.62 %) gel in metered-dose pump 2 pump topical HS Qty: 225 0RF Rx Instructions: apply 1 pump amount over max area of EACH upper arm and shoulder 10/24/22 PDMP queried okay to fill - TR nitroglycerin [Nitrostat] 0.4 mg Tablet, Sublingual 1 tab Sublingual UD PRN (Reason: CHESTPAIN) furosemide 20 mg tablet 20 mg PO DAILY Rx Instructions: patient taking differently: only takes 20mg PO daily insulin aspart U-100 [Novolog FlexPen U-100 Insulin] 100 unit/mL (3 mL) insulin pen 0 unit SQ WM MDD 100 units Rx Instructions: per sliding scale with meals; TDD 100 units Toujeo SoloStar U-300 Insulin 300 unit/mL (1.5 mL) insulin pen See Rx Instructions .ROUTE .COMPLEX Rx Instructions: pt states he has been taking 140 units d/t his eating habits changing. pt states he adjusted his own insulin. per last documented dose, pt is taking 180. Discharge Orders: Discharge Order (Routine); Ordered 11/09/22 Ordered By: Luis Ceron/Other Patient Handouts: Managing Type 2 Diabetes, Diabetes: Meal Planning Admission Data Admit Date/Time: 11/08/22 21:15 Attending Provider: Luis Sarabia Admit Provider: Sonido Manuel Primary Care Provider: Oswaldo Sampson Other Providers: Sonido Manuel ; Joseph Garzon ; Rahat Mcgarry ; [facility] Other Interventions: Discharge Summary Assessment (RN) Last Done: 11/09/22 14:47
== END 2022-11-09 14:59 | disposition short-term general hospital (02) | DRG 280 ==
LOC: ED 18:02 → 2E 21:15 → SUATTDRO 21:15 → 2E 22:14

== ENCOUNTER 2023-09-20 12:56 | Observation (INO) ==
[2023-09-20 14:01] LABS: Basophils # (auto) 0.04 K/uL (0.00-0.20); Basophils % (auto) 0.2 %; Eosinophils # (auto) 0.11 K/uL (0.00-0.50); Eosinophils % (auto) 0.7 %; Hematocrit (blood only) 45.8 % (42.0-52.0); Hemoglobin 13.9 g/dl (14.0-18.0); Immature Granulocytes # (auto) 0.07 K/uL (0.01-0.20); Immature Granulocytes % (auto) 0.4 %; Lymphocytes # (auto) 1.67 K/uL (1.20-3.40); Lymphocytes % (auto) 10.3 %; Mean Corpuscular Hemoglobin 24.2 pg (25.0-34.0); Mean Corpuscular Hgb Conc 30.3 g/dL (32.0-36.0); Mean Corpuscular Volume 79.7 fL (80.0-100.0); Mean Platelet Volume 8.8 fL (9.4-12.4); Monocytes # (auto) 1.73 K/uL (0.11-0.59); Monocytes % (auto) 10.7 %; Neutrophils # (auto) 12.59 K/uL (1.40-6.50); Neutrophils % (auto) 77.7 %; Platelet Count 311 K/uL (130-400); RDW Coefficient of Variation 17.1 % (11.5-14.5); RDW Standard Deviation 48.8 fL (36.4-46.3); Red Blood Count 5.75 M/uL (4.70-6.10); White Blood Count 16.21 K/ul (4.8-10.8)
[2023-09-20 14:07] LABS: BUN Creatinine Ratio 12.6 (10-20); Calcium 9.4 mg/dl (8.6-10.3); Creatinine Clr Calc Pharmacy 78.1 ml/min; Est GFR (African American) 70.7 ml/min
[2023-09-20 14:13] LABS: Troponin I High Sensitivity 12.5 pg/ml (0-20)
--- NOTE | 2023-09-20 14:13 | XRay Report ---
XR chest 1V portable HISTORY: Chest pain, nonspecific COMPARISON: Chest 11/08/2022. FINDINGS: No pneumothorax. No pleural effusions. No pneumothorax. No pleural effusions. No focal lung consolidations to suggest a pneumonia. The heart remains mildly enlarged. There are poststernotomy c hanges. Mild chronic interstitial thickening persists. No evidence for pulmonary edema. IMPRESSION: No significant change compared to the prior study. No acute process. ACT 112: Negative or not required by law. Electronically signed by: Aubrey Cee M.D. 09/20/2023 2:11 PM
[2023-09-20 14:24] LABS: INR 0.9 (0.9-1.1); Partial Thromboplastin Time 26 Seconds (21-31); Prothrombin Time 9.8 Seconds (9.0-12.0)
[2023-09-20] MEDS: KETOROLAC TROMETHAMINE 15 MG/ML VIAL IV STA (14:36)
[2023-09-20] MEDS: NITROGLYCERIN SL 0.4 MG/TAB TAB SL STA (14:36)
--- NOTE | 2023-09-20 15:38 | History & Physical Report ---
Date of Service September 20, 2023 Assessment & Plan (1) Left-sided chest pain: (2) Left shoulder pain: Plan: Nabil Cole is a 62y/o M with PMHx of DM type II, mild nonproliferative diabetic retinopathy w/o macular edema, diabetic polyneuropathy, CKD stage II, dyslipidemia, COPD, AR [on CPAP], pulmonary emphysema, asthma, chronic diastolic congestive HF, HTN, bifascicular BBB, CAD, GERD w/ esophagitis, BPH, osteoarthritis, chronic pain syndrome, chronic back pain, polycythemia, depression/WES, tobacco use disorder, hx of NSTEMI [10/2022] and other problems listed below who presented to the ED for evaluation of left-sided chest pain. Of note, patient has been hospitalized many times in the past for cardiac- related issues. He is s/p PCI w/ BYRON for tx of NSTEMI in 09/2022 here @ [facility]. Was once again admitted in 10/2022 for repeat NSTEMI and ultimately had to be transferred to [facility] to undergo CABG procedure. Extensive cardiac hx including chronic diastolic congestive HF, HTN, bifascicular BBB and CAD as per above. Most recent echo was performed 11/09/22 and revealed the following: * Mild concentric LVH, small sized anterior wall motion abnormality w/ hypokinesis of the apical and mid segments of the anterior wall. * LVEF = 55-60%, mild mitral regurgitation and grade I diastolic dysfunction. Vitals on admission: BP 176/85, HR 101, RR 16, Temp 36.6oC and O2 sat 91% on RA. * He does currently have supplemental oxygen therapy in place, on 3 L at the moment. Sating ~94% throughout our conversation. Labs performed in the ED reveal the following: * WBC elevated @ 16.21, Hgb 13.9, Hct 45.8 and Plt Count 311. --> Some minor anemia process ongoing according to his labs. * Transferrin sat low @ 10%, but otherwise iron panel/work-up rather unremarkable. * Sodium 134, potassium on higher end of normal @ 5.0, and glucose elevated @ 178. * Folate, vit B12 w/in normal range. Troponin 12.5, BNP 15 on admission. --> No overt evidence of ACS process occurring. UA revealed the followin+ protein, trace ketones + blood, granular casts and >20 hyaline casts. No overt sign of infection. Chest x-ray revealed no acute process. Chest CT displayed the following: postoperative changes compatible w/ recent median sternotomy w/ CABG, no post-op fluid collections, dependent atelectasis and hepatic steatosis. Cervical spine CT showed the following: * NO acute fracture/subluxation. * Vrrn-gu-ginovqus facet degenerative changes throughout the cervical spine. * Severe right-sided neural foraminal narrowing at C3-C4 d/t uncovertebral and facet hypertrophy. EKG performed in the ED interpreted by myself and reveals the following: sinus tachycardia w/ HR 104bpm, RBBB, left anterior fascicular block [bifascicular block] and QT/QTc Int 356/468ms. When compared to EKG done 09/20/2023, ST depressions and T wave inversions NO longer evident in the lateral leads. Of note, he was administered Toradol and nitroglycerin in the ED w/ improvement in his pain. As per HPI, patient was seen with Dr. Cohen in the ED. As per Dr. Reilly's HPI, left-sided chest and shoulder pain was reproducible with palpation of those regions. Given that examination finding, labs and EKG results above, appears an ACS event is NOT currently ongoing. -Continuous cardiac monitoring is in place given extensive cardiac hx, monitor for any acute changes. -Repeat BMP, CBC in AM --> Trend electrolytes. No need to repeat troponin at this time. -Repeat echo, EKG as needed for any sudden onset chest pain. * Plan to repeat troponin if an event as such occurs. -HH, carb consistent diet w/ low sodium restriction in place. PRN IV Zofran in place. -PRN 5mg IV hydralazine in place for SBP>175. --> Patient consistently in 170s systolic since arrival to ED. -Can continue EKG MANAGER Zyrtec, hydroxyzine, aspirin and clopidogrel. -Bowel regimen in place with daily Miralax, PRN Linzess (taking EKG MANAGER). (3) Leukocytosis: Plan: As above, WBC count elevated @ 16.21 on admission. Vitals on admission: BP 176/85, HR 101, RR 16, Temp 36.6oC and O2 sat 91% on RA. -Does NOT appear overtly infectious on examination, denies any infectious symptoms during our conversation. -UA revealed the followin+ protein, trace ketones + blood, granular casts and >20 hyaline casts. --> Appears most likely reactive at this point, repeat CBC in AM for further evaluation. (4) Polycythemia, secondary: Plan: Per HPI: He does have a history of secondary polycythemia, for which he reports seeing phlebotomy every 2-3 weeks for appropriate management therapy. * Follows with [facility] according to Epic records. According to previous documentation, he is to undergo routine CBC w/diff testing [id number], phlebotomy if Hct>45. CBC findings in ED as per above: * WBC elevated @ 16.21, Hgb 13.9, Hct 45.8 and Plt Count 311. --> Some minor anemia process ongoing according to his labs. * Transferrin sat low @ 10%, but otherwise iron panel/work-up rather unremarkable. -Will repeat CBC in the AM, could consider heme/onc consult if Hct level increases any higher given previous recommendations noted above. (5) COPD (chronic obstructive pulmonary disease): (6) Asthma: Plan: Vitals on admission: BP 176/85, HR 101, RR 16, Temp 36.6oC and O2 sat 91% on RA. * He does currently have supplemental oxygen therapy in place, on 3 L at the moment. Sating ~94% throughout our conversation. Not currently complaining of SOB lying in bed. Does endorse some chest pain with deep breathing, but is NOT currently in respiratory distress. -Will continue EKG MANAGER PRN albuterol inhaler, budesonide inhalation therapy. Can also continue Singulair while hospitalized. -Continue to closely monitor for any impending signs of respiratory distress. (7) Type 2 diabetes mellitus with insulin therapy: Plan: Patient is on BOTH basal and short-acting insulin regimens at home. HOLD EKG MANAGER insulin regimen therapy while hospitalized. -SSI regimen in place, did order for 100 units of insulin glargine to be given in AM. -Glycemic pharmacy consult placed for further input/recommendations to manage his blood sugar throughout the hospitalization. --> He is on a high-dose regimen of both insulin types at home. (8) Hypertension: Plan: Vitals on admission: BP 176/85, HR 101, RR 16, Temp 36.6oC and O2 sat 91% on RA. --> Patient consistently in 170s systolic since arrival to ED. -Placed order for PRN 5mg IV hydralazine in situation where SBP>[address] Cohen' recommendation. -Will continue EKG MANAGER metoprolol succinate, losartan and furosemide while hospitalized. --> Continue to closely monitor potassium level (higher end of normal @ 5.0 on admission). (9) Chronic back pain: (10) Chronic pain syndrome: Plan: -Will continue EKG MANAGER opioid therapy, bowel regimen is in place as per above. -PT/OT consults ordered, appreciate their recommendations/input. (11) Dyslipidemia: Plan: -Will continue EKG MANAGER statin therapy while hospitalized. (12) Obstructive sleep apnea: Plan: -CPAP order placed, will continue CPAP therapy at bedtime. (13) GERD (gastroesophageal reflux disease): Plan: -Will continue EKG MANAGER PPI therapy while hospitalized. (14) Tobacco abuse: Plan: Patient does currently smoke about 1 pack of cigarettes per day, had a short cessation of smoking for approximately 4 months following his NSTEMI last year but then restarted. Patient reports that he started smoking around age 16-15. He has a nicotine patch on now, and is requesting continuation of nicotine patch application while hospitalized. -Chest x-ray revealed no acute process. -Smoking cessation education ordered, nicotine patch in place. DVT Prophylaxis: SCDs - For now. Code Status: Full Code PCP: Oswaldo Sampson MD Dispo: Observation --> Med/Surg w/ Telemetry Patient seen in collaboration with Dr. Cohen. Please see addendum. I spent a total of 75 minutes coordinating, documenting, and providing care for this patient excluding time spent in the performance of separately billed services. This included personally reviewing all current laboratories and imaging studies, medical reconciliation, outpatient chart review and discussion with specialists. This chart was completed in part utilizing Speech Voice Recognition Software. Grammatical errors, random word insertions, pronoun errors, and incomplete sentences are an occasional consequence of this system due to software limitations, ambient noise, and hardware issues. Any formal questions or concerns about the content, text, or information contained within the body of this dictation should be directly addressed to the provider for clarification. History of Present Illness Chief Complaint: Left-Sided Chest Pain Primary Care Provider: Oswaldo Sampson MD Nabil Cole is a 62y/o M with PMHx of DM type II, mild nonproliferative diabetic retinopathy w/o macular edema, diabetic polyneuropathy, CKD stage II, dyslipidemia, COPD, AR [on CPAP], pulmonary emphysema, asthma, chronic diastolic congestive HF, HTN, bifascicular BBB, CAD s/p CABG [2022], GERD w/ esophagitis, BPH, osteoarthritis, chronic pain syndrome, chronic back pain, polycythemia, depression/WES, tobacco use disorder, hx of NSTEMIs [09/2022, 10/2022] and other problems listed below who presented to the ED for evaluation of left-sided chest pain. Of note, patient has been hospitalized many times in the past for cardiac- related issues. He is s/p PCI w/ BYRON for tx of NSTEMI in 09/2022 here @ [facility]. Was once again admitted in 10/2022 for repeat NSTEMI and ultimately had to be transferred to [facility] to undergo CABG procedure. Extensive cardiac hx including chronic diastolic congestive HF, HTN, bifascicular BBB and CAD as per above. History obtained mostly from patient, and associated ED/previous hospitalization/PCP/specialist records. Patient seen at bedside with Dr. Cohen. Patient is accompanied in the room by his , who provides additional history. Patient reports left-sided chest and shoulder pain that started today around 3PM. He states that he lifted a propane tank and was furniture shopping with his earlier today (lots of sitting/standing motions), which may have subsequently caused the symptoms he is presenting with currently. Patient states the pain feels more muscular rather than cardiac-related at this time, but was concerned that he may be having an acute cardiac event given his extensive cardiovascular history. Pain is currently isolated to the left shoulder/upper chest region. Previously the pain was radiating down his left arm, but that has since subsided. He states that the pain is in the "deep muscular tissue" of the left shoulder. Patient does report difficulty with ambulation at baseline, he is currently in the process of obtaining an electric wheelchair. Patient states he is "losing butt muscles and muscles in the front." Ultimately can no longer walk without pain. He has an extensive history of back operations and chronic back pain. Reports his "spine is very sensitive." Patient has participated in physical therapy and seen pain management in the past w/o any relief of his back pain or muscle weakness. He is currently on chronic opioid therapy, and uses MiraLAX daily. He reports intermittent constipation at baseline with associated abdominal distention. Patient is currently feeling distended, but reports he is hungry and wants to eat. He denies any recent nausea/vomiting, and there is no history of dysphagia concerns. He has been on a low-sodium diet at home since his NSTEMI last year, and states he does fluid restrict himself at home to avoid becoming fluid overloaded. However, reports that he does occasionally indulge in some salty snacks at bedtime. Patient report that he is "swollen all over," which has been going on for the past year since his NSTEMI. He has been taking his Lasix as prescribed at home w/o much difference in the severity of his swelling. He does have some chronic numbness in both arms radiating down to his fingertips, which is unchanged from baseline. He does sleep lying flat, no concerns of orthopnea at this time. Uses CPAP at baseline, as per above. Follows with [facility]. Patient reports that he has oxygen supplementation available at home, which he uses intermittently. Patient reports that when he uses his oxygen it is typically ~3- 4L. He reports some SOB with increasing exertion; has had episodes in the past where he becomes lightheaded/dizzy and subsequently has to sit down to initiate supplemental oxygen therapy. During those episodes, he also endorses some changes in his vision which he describes as "purple rings." However, these visual changes also resolve upon sitting and application of supplemental oxygen therapy. He has been having some pain with deep inspiration as well. He does currently endorse neck pain currently with any sort of movement. Denies any recent trauma or falls. He did receive Toradol and nitroglycerin in the ED. Patient reports improvement of his pain following administration of the Toradol. Reports nitroglycerin gave him "head santiago" and is currently endorsing a minor headache. Patient does currently smoke about 1 pack of cigarettes per day, had a short cessation of smoking for approximately 4 months following his NSTEMI last year but then restarted. Patient reports that he started smoking around age 16- 17. He has a nicotine patch on now, and is requesting continuation of nicotine patch application while hospitalized. He does have a history of secondary polycythemia, for which he reports seeing phlebotomy every 2-3 weeks for appropriate management therapy. Vitals on admission: BP 176/85, HR 101, RR 16, Temp 36.6oC and O2 sat 91% on RA. * He does currently have supplemental oxygen therapy in place, on 3 L at the moment. Sating ~94% throughout our conversation. Labs performed in the ED reveal the following: * WBC elevated @ 16.21, Hgb 13.9, Hct 45.8 and Plt Count 311. --> Some minor anemia process ongoing according to his labs. * Transferrin sat low @ 10%, but otherwise iron panel/work-up rather unremarkable. * Sodium 134, potassium on higher end of normal @ 5.0, and glucose elevated @ 178. * Folate, vit B12 w/in normal range. Troponin 12.5, BNP 15 on admission. --> No overt evidence of ACS process occurring. UA revealed the followin+ protein, trace ketones + blood, granular casts and >20 hyaline casts. Chest x-ray revealed no acute process. Chest CT displayed the following: postoperative changes compatible w/ recent median sternotomy w/ CABG, no post-op fluid collections, dependent atelectasis and hepatic steatosis. Cervical spine CT showed the following: * NO acute fracture/subluxation. * [id number]-wd-lltdqrwk facet degenerative changes throughout the cervical spine. * Severe right-sided neural foraminal narrowing at C3-C4 d/t uncovertebral and facet hypertrophy. Allergies Allergy/AdvReac Type Severity Reaction Status Date / Time clarithromycin Allergy Severe DAMAGED Verified 09/20/23 18:40 LIVER PER PT-REQUIRED HOSPITALIZATION latex Allergy Intermediate skin Verified 09/20/23 18:40 irritation/rash ticagrelor [From Brilinta] AdvReac Severe sob Verified 09/20/23 18:40 adhesive AdvReac Mild SKIN Verified 09/20/23 18:40 RASH-WITH SOME TAPES dulaglutide AdvReac Unknown hx Verified 09/20/23 18:40 pancreatitis exenatide AdvReac Unknown hx Verified 09/20/23 18:40 pancreatitis liraglutide AdvReac Unknown hx Verified 09/20/23 18:40 pancreatitis semaglutide AdvReac Unknown hx Verified 09/20/23 18:40 pancreatitis Home Medications Medication Instructions Recorded Confirmed Type albuterol sulfate 90 mcg/actuation 2 puff inhalation Q6H PRN Wheezing 06/26/18 09/20/23 History aerosol inhaler Oxygen Home #1 ea 04/30/19 09/20/23 History aspirin 81 mg tablet,delayed 81 mg PO HS 03/12/20 09/20/23 History release blood-glucose meter,continuous 02/03/21 09/20/23 History (Dexcom G6 Cushion Maker Hand) blood-glucose transmitter (Dexcom 02/03/21 09/20/23 History G6 Transmitter device) cetirizine 10 mg capsule (Zyrtec) 10 mg PO DAILY PRN Allergy Symptoms 03/05/21 09/20/23 History hydroxyzine pamoate 25 mg capsule 25 mg PO Q8H PRN anxiety 5 days 06/16/21 09/20/23 Rx (Vistaril) #15 caps morphine 100 mg tablet,extended 100 mg PO TID@08,14,20 10/12/21 09/20/23 History release clopidogrel 75 mg tablet (Plavix) 75 mg PO QAM 05/16/22 09/20/23 History budesonide 0.5 mg/2 mL suspension 0.5 mg inhalation BID PRN 06/13/22 09/20/23 History for nebulization Shortness Of Breath Or Wheezing linaclotide 145 mcg capsule 145 mcg PO DAILY PRN Constipation 08/01/22 09/20/23 History (Linzess) morphine 30 mg tablet,extended 30 mg PO Q8H PRN breakthrough pain 08/01/22 09/20/23 History release 6-10 blood sugar diagnostic #900 ea 08/19/22 09/20/23 Rx morphine 15 mg immediate release 15 mg PO Q6 PRN Breakthrough Pain 09/13/22 09/20/23 History tablet 1-6 rosuvastatin 5 mg tablet (Crestor) 5 mg PO QAM 11/08/22 09/20/23 History montelukast 10 mg tablet 10 mg PO DAILY pt request 12/22/22 09/20/23 History pantoprazole 40 mg tablet,delayed 40 mg PO .QOD Heartburn 12/22/22 09/20/23 History release blood sugar diagnostic (OneTouch #300 ea 12/29/22 09/20/23 Rx Verio test strips) blood-glucose meter (Accu-Chek #1 ea 12/29/22 09/20/23 Rx Guide Glucose Meter) blood-glucose meter (OneTouch #1 ea 12/29/22 09/20/23 Rx Ultra2 Meter) blood-glucose meter (OneTouch 12/29/22 09/20/23 History Verio Flex Meter) blood sugar diagnostic (OneTouch #1,500 ea 01/04/23 09/20/23 Rx Ultra Test strips) Dexcom G6 Sensor (blood-glucose #3 ea 01/26/23 09/20/23 Rx sensor) furosemide 20 mg tablet 40 mg PO DAILY 02/06/23 09/20/23 History losartan 25 mg tablet 25 mg PO DAILY #90 tabs 03/24/23 09/20/23 Rx Accu-Chek Guide test strips (blood #400 ea 04/19/23 09/20/23 Rx sugar diagnostic) testosterone 2 pump topical HS #225 grams 04/21/23 09/20/23 Rx insulin aspart U-100 100 unit/mL See Rx Instructions subcut WM 90 07/13/23 09/20/23 Rx (3 mL) subcutaneous pen (Novolog days #120 mL FlexPen U-100 Insulin aspart) cholecalciferol (vitamin D3) 25 4,000 unit PO HS 07/18/23 09/20/23 History mcg (1,000 unit) capsule (Vitamin D3) metoprolol succinate 25 mg 25 mg PO DAILY 07/18/23 09/20/23 History tablet,extended release 24 hr oxybutynin chloride 5 mg 5 mg PO DAILY #30 tabs 07/19/23 09/20/23 Rx tablet,extended release 24 hr clindamycin phosphate 1 % lotion 1 applic topical DAILY PRN flare up 09/20/23 09/20/23 History insulin glargine U-300 conc 300 147 unit subcut QAM 09/20/23 09/20/23 History unit/mL (1.5 mL) subcutaneous pen (Toujeo SoloStar U-300 Insulin) mupirocin 2 % topical ointment 1 applic topical DAILY PRN flare up 09/20/23 09/20/23 History nicotine 21 mg/24 hr daily 1 patch transdermal DAILY 09/20/23 09/20/23 History transdermal patch Past Med/Surg History Problem List (Updated 09/20/23 @ 18:49 by Kristofer Cotsa MD) Leukocytosis Polycythemia, secondary Left shoulder pain Left-sided chest pain Elevated troponin (Acute) Substernal chest pain (Acute) Acute on chronic diastolic (congestive) heart failure Coronary stent restenosis with uncertain cause Status post insertion of drug-eluting stent into left anterior descending (LAD) artery Elevated troponin (Acute) Noncompliance Non-compliant behavior (Acute) Urethral stricture Hematuria, gross Gastroparesis Leukocytosis (Acute) Abdominal pain (Acute) Chest pain (Acute) Lab test negative for COVID-19 virus (Acute) Opioid dependence Pulmonary emphysema CAD (coronary artery disease) (Acute) Pancreatitis Tobacco abuse Obesity Type 2 diabetes mellitus with insulin therapy Background diabetic retinopathy associated with type 2 diabetes mellitus Diabetes type 2, uncontrolled Chronic pain syndrome (Acute) Diabetic nephropathy associated with type 2 diabetes mellitus Diabetic peripheral neuropathy associated with type 2 diabetes mellitus Dysesthesia Dyslipidemia 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 Vitamin D deficiency Hypertension Obstructive sleep apnea Lumbar stenosis with neurogenic claudication Chronic back pain Asthma BPH (benign prostatic hyperplasia) COPD (chronic obstructive pulmonary disease) Chronic diastolic CHF (congestive heart failure) (Acute) EF 63% 05/2021 echo Therapeutic opioid-induced constipation (OIC) Postlaminectomy syndrome of lumbosacral region Tinea pedis Chronic kidney disease (CKD) Medical History Myocardial Infarction Hypervolemia Hypertensive urgency Chest pain Bifascicular block Medical cannabis use Transient ischemic attack (TIA) unsure of date - treated at [facility] -- 5+ years ago. On home oxygen therapy 3 lpm via n/c Migraines Diverticular disease SOBOE (shortness of breath on exertion) Sleep apnea CPAP WITH 4 L/MIN HS. S/P UPPP. History of SCC (squamous cell carcinoma) of skin History of basal cell carcinoma Obesity Post traumatic stress disorder Degenerative disc disease Chronic back pain History of skin cancer S/P EXCISION OF SCALP History of acute pancreatitis RELATED TO A STONE OBSTRUCTION, 10/2017 Irritable bowel syndrome (IBS) GERD (gastroesophageal reflux disease) Diabetes mellitus, type 2 IDDM Tachycardia Surgical History History of coronary artery bypass graft History of heart artery stent x1 stent (02/2022) History of cardiac cath 02/2022 with 1 stent (LAD) Dr Leach at [facility]. S/P cholecystectomy 07/02/1819 Grade 2 view, MAC 3, ETT 8. History of tonsillectomy History of uvulopalatopharyngoplasty FOR TREATMENT OF AR History of surgery RT ELBOW History of repair of rotator cuff LEFT SHOULDER History of colonoscopy History of ERCP 11/2017 [facility] History of esophagogastroduodenoscopy (EGD) History of cardiac cath 2017-NO STENTS Fusion of spine MULTIPLE LUMBARX2 History of appendectomy History of back surgery total of 6 back surgeries. 2 failed surgeries Family History Other COPD (chronic obstructive pulmonary disease) Cancer Diabetes Heart disease Hypertension Social History Smoking Status: Current every day smoker Tobacco Type: Cigarettes packs per day: 1; Cigarettes Per Day: 20; Second Hand Exposure: Yes; Do You Dip or Chew Tobacco: No; Hx Alcohol Use: No Hx Substance Use: Yes Last Used Substance: Just Prior to Arrival Last Used Substance Other:: medical marijuana Substance Use Type Other:: MEDICAL MARIJUANA Preferred Language: German Communication Ability: Effective Visual Impairment: No Limitations Logistics Lead Required: No Beliefs That Will Affect Care: None marital status: Current Living Situation: Spouse Current Living Situation Comment: [employer] current occupation: On disability Feels Safe at Home: Yes Safety Concerns: Feels Safe At This Time Assistive Devices: Cane, Glasses and Walker Review of Systems Review of Systems: At least ten systems reviewed and negative, except as noted in the HPI. Physical Exam Physical Exam: Saw patient in the room with Dr. Cohen, and she performed the physical examination. Please refer to her addendum for physical examination findings. Results & Data Results & Data Vital Signs (Past 12 Hours) Vital Signs Temp Pulse Pulse Resp BP BP Pulse Ox 09/20/23 13:21 101 H 09/20/23 13:21 91 09/20/23 13:21 104 H 16 176/85 H 91 09/20/23 12:58 36.6 C 110 H 20 177/82 H 92 O2 Del Method O2 Flow Rate 09/20/23 13:21 09/20/23 13:21 Room Air 0 09/20/23 13:21 Room Air 09/20/23 12:58 Room Air Laboratory Results Short CBC 09/20/23 Range/Units 13:23 WBC 16.21 H (4.8-10.8) K/ul Hgb 13.9 L (14.0-18.0) g/dl Hct 45.8 (42.0-52.0) % Plt Count 311 (130-400) K/uL [facility] 09/20/23 13:23 Sodium 134 L Potassium 5.0 Chloride 101 Carbon Dioxide 29 BUN 16 Creatinine 1.27 Glucose 178 H Calcium 9.4 Diagnostic Findings Chest X-Ray 09/20/23 13:05 XR chest 1V portable HISTORY: Chest pain, nonspecific COMPARISON: Chest 11/08/2022. FINDINGS: No pneumothorax. No pleural effusions. No pneumothorax. No pleural effusions. No focal lung consolidations to suggest a pneumonia. The heart remains mildly enlarged. There are poststernotomy changes. Mild chronic interstitial thickening persists. No evidence for pulmonary edema. IMPRESSION: No significant change compared to the prior study. No acute process. ACT 112: Negative or not required by law. Electronically signed by: Aubrey Cee M.D. 09/20/2023 2:[address] 09/20/23 16:[address] DOSE: 1584.23 mGy.cm HISTORY: Neck pain TECHNIQUE: Multiaxial CT images of the cervical spine were performed and reformatted in the sagittal and coronal plane without the use of contrast. A dose lowering technique was utilized adhering to the principles of ALARA. COMPARISON: Cervical spine MRI 05/04/2012. FINDINGS: No fractures. No subluxation. Prevertebral soft tissues and the C1-C2 interval are intact. No pneumothorax. Small left mastoid effusion is noted. There are poststernotomy changes which are partially visualized. The visualized brain parenchyma is unremarkable. Mild disc space narrowing at C5-C6, C6-C7, and C7-T1 with small endplate osteophytes. [id number] facet degenerative changes throughout the cervical spine. No significant central canal narrowing by CT technique. Severe right-sided neural foraminal narrowing at C3-C4 due to the uncovertebral and facet hypertrophy. IMPRESSION: 1. No fracture or subluxation within the cervical spine. 2. Degenerative changes as described above. ACT 112: Negative or not required by law. Electronically signed by: Aubrey Cee M.D. 09/20/2023 5:[address] 09/20/23 16:21 CT chest diagnostic wo con CLINICAL HISTORY: 62 years-old Male with Left-sided chest pain. Acute left- sided chest pain TECHNIQUE: Multiaxial CT images of the chest were performed without contrast. A dose lowering technique was utilized adhering to the principles of ALARA. COMPARISON: 10/01/2022 FINDINGS: Unremarkable thyroid. Postoperative changes compatible with recent median sternotomy and CABG. No postoperative fluid collections. No thoracic aortic aneurysm. No pathologically enlarged lymph nodes. No pneumothorax, pleural effusion or overt pulmonary edema. Dependent subsegmental atelectasis. Central airways are patent. No acute upper abdominal abnormality. Cholecystectomy. Hepatic steatosis. Lumbar spinal fusion hardware. Unremarkable soft tissues. No acute fracture identified. IMPRESSION: 1. Postoperative changes compatible with recent median sternotomy with CABG. No postoperative fluid collections. 2. Dependent atelectasis. 3. Hepatic steatosis. ACT 112: Negative or not required by law. Electronically signed by: Prashant Pope M.D. 09/20/2023 5:09 PM Medications Administered Discontinued Medications Ketorolac Tromethamine (Ketorolac Tromethamine 15 Mg/Ml Vial) 15 mg IV NOW STA Stop: 09/20/23 14:28 Last Admin: 09/20/23 14:36 Dose: 15 mg Documented By: KV Nitroglycerin (Nitroglycerin Sl 0.4 Mg/Tab Tab) 0.4 mg SL NOW STA Stop: 09/20/23 14:28 Last Admin: 09/20/23 14:36 Dose: 0.4 mg Documented By: KV ECG Additional Comments: EKG performed in the ED interpreted by myself and reveals the following: sinus tachycardia w/ HR 104bpm, RBBB, left anterior fascicular block [bifascicular block] and QT/QTc Int 356/468ms. * When compared to EKG done 09/20/2023, ST depressions and T wave inversions NO longer evident in the lateral leads. Code Status & VTE Plan Code Status FULL CODE Supervising Physician Co-Signing Physician Notes I have seen and discussed the case with the collaborating advanced practitioner. I agree with the above H&P. I have reviewed and confirmed the patients medical history, the findings on physical examination, and the patients diagnosis and treatment plan with Morro LOMAS and agree with the information documented. In short, Mr Nabil Cole is a 62y/o M with PMHx of DM type II, diabetic retinopathy, diabetic polyneuropathy, CKD stage II, dyslipidemia, COPD, AR on CPAP, pulmonary emphysema, asthma, chronic HFpEF, HTN, bifascicular BBB, CAD, GERD w/ esophagitis, BPH, osteoarthritis, chronic pain syndrome, chronic back pain, polycythemia, depression/WES, tobacco use disorder, hx of NSTEMI [10/2022] and other problems listed below who presented to the ED for evaluation of left- sided chest pain. Pain is reproducible to palpation, mostly left flank and left trapezius area. Reports moving a propane tank and his attempting to pull him from an electric scooter. States felt more pain relief with IV toradol. He does note increased swelling of lower extremities Recent visit to OP for left intercostal/MSK pain 08/2023 GENERAL APPEARANCE: AxOx4, generally well-appearing male, no acute distress. HEENT: NC, AT. MMM. EOMI, clear conjunctiva, oropharynx clear. NECK: Supple without lymphadenopathy. No stiffness or restricted ROM. HEART: Normal rate and regular rhythm, normal S1/S1, no m/r/g LUNGS: CTAB, moving air well. No crackles or wheezes are heard. ABDOMEN: soft but protuberant abdomen, BS+, chronic LLQ tenderness BACK: No CVAT, no obvious deformity. EXTREMITIES: Without cyanosis, clubbing or edema. NEUROLOGICAL: Grossly nonfocal. Alert and oriented, moving all 4 extremities. CN not formally tested but appear grossly intact. Skin: Warm and dry without any rash. #Chest pain, noncardiac -reproducible to palpation, ongoing history of this intercostal strain Pain management with topical agents to help Continue home opioid regimen #Chronic HFpEF #Ischemic Cardiomyopathy -recurrent NSTEMI and In-Stent restenosis of the LAD, ultimately undergoing November 14, 2022 coronary artery bypass grafting x1 with a SCHMITT to the LAD. ECHO 2022 55-60% Recently seen by Donaldo HESTER 07/2023, loki perez -Patient with tense edema, reports chronic Resume home medications Cards consult for medication optimization Repeat ECHO #Bifascicular block Chronic stable Continue metoprolol Monitor on tele given concern for volume overload #Leukocytosis Unclear--no localizing symptoms reactive iso tobacco use? Repeat CBC in am with diff #chronic opioid use resume home regimen bowel regimen rest of plan as above I spent a total of 35 minutes coordinating, documenting, and providing care for this patient excluding time spent in the performance of separately billed services. All of the aforementioned completed outside of collaborating with the assigned advanced practitioner for a full treatment plan. I have reviewed the advanced practitioner's documentation, and I agree with, and take responsibility for the plan of care (2) Left shoulder pain Chronicity: acute Qualified Code(s): M25.512 - Pain in left shoulder (3) Leukocytosis Leukocytosis type: unspecified Qualified Code(s): D72.829 - Elevated white blood cell count, unspecified (5) COPD (chronic obstructive pulmonary disease) COPD type: unspecified COPD Qualified Code(s): J44.9 - Chronic obstructive pulmonary disease, unspecified (6) Asthma Asthma complication type: uncomplicated Asthma persistence: unspecified Asthma severity: unspecified severity Qualified Code(s): J45.909 - Unspecified asthma, uncomplicated (8) Hypertension Hypertension type: unspecified Qualified Code(s): I10 - Essential (primary) hypertension (9) Chronic back pain Back pain laterality: unspecified Back pain location: back pain in unspecified location Qualified Code(s): M54.9 - Dorsalgia, unspecified; G89.29 - Other chronic pain (13) GERD (gastroesophageal reflux disease) Esophagitis bleeding: without hemorrhage Esophagitis presence: with esophagitis Qualified Code(s): K21.00 - Gastro-esophageal reflux disease with esophagitis, without bleeding
[2023-09-20] MEDS ORDERED: MAGNESIUM HYDROXIDE SUSP 30 ML UDC PO PRN (15:53)
[2023-09-20] MEDS ORDERED: ALUMINUM/MAGNESIUM SUSP 30 ML UDC PO PRN (15:53)
[2023-09-20] MEDS ORDERED: POLYETHYLENE (MIRALAX) 17 GM PACK PO PRN (15:53)
[2023-09-20] MEDS ORDERED: ONDANSETRON INJ 2 MG/ML 2 ML VIAL IV PRN (15:53)
[2023-09-20 16:12] LABS: Ferritin 15.9 ng/ml (8-388)
[2023-09-20 16:18] LABS: Folate (Folic Acid),Ser orPlas 7.39 ng/ml (>5.38)
[2023-09-20] MEDS: ACETAMINOPHEN 325 MG TAB PO PRN (17:02)
[2023-09-20] MEDS ORDERED: PHARMACY GLYCEMIC MGMT CONSULT PRN (17:04)
[2023-09-20] MEDS ORDERED: CARBOHYDRATES FOR HYPOGLYCEMIA PO PRN (17:05)
[2023-09-20] MEDS ORDERED: GLUCAGON FOR INJ 1 MG VIAL SQ PRN (17:05)
[2023-09-20] MEDS ORDERED: GLUCOSE 40% GEL 15 GM TUBE PO PRN (17:05)
[2023-09-20] MEDS ORDERED: DEXTROSE 50% 50 ML SYRINGE IV PRN (17:05)
[2023-09-20] MEDS ORDERED: GLUCOSE 10 TAB/TUBE PO PRN (17:05)
--- NOTE | 2023-09-20 17:11 | CT Scan Report ---
CT chest diagnostic wo con CLINICAL HISTORY: 62 years-old Male with Left-sided chest pain. Acute left-sided chest pain TECHNIQUE: Multiaxial CT images of the chest were performed without contrast. A dose lowering techni que was utilized adhering to the principles of ALARA. COMPARISON: 10/01/2022 FINDINGS: Unremarkable thyroid. Postoperative changes compatible with recent median sternotomy and CA BG. No postoperative fluid collections. No thoracic aortic aneurysm. No pathologically enlarged lymph nodes. No pneumothorax, pleural effusion or overt pulmonary edema. Dependent subsegmental atelectasi s. Central airways are patent. No acute upper abdominal abnormality. Cholecystectomy. Hepatic steatosis. Lumbar spinal fusion hardwa re. Unremarkable soft tissues. No acute fracture identified. IMPRESSION: 1. Postoperative changes compatible with recent median sternotomy with CABG. No postoperative fluid c ollections. 2. Dependent atelectasis. 3. Hepatic steatosis. ACT 112: Negative or not required by law. Electronically signed by: Prashant Pope M.D. 09/20/2023 5:09 PM
--- NOTE | 2023-09-20 17:11 | CT Scan Report ---
CERVICAL SPINE CT CT DOSE: 1584.23 mGy.cm HISTORY: Neck pain TECHNIQUE: Multiaxial CT images of the cervical spine were performed and reformatted in the sagittal and coronal plane without the use of contrast. A dose lowering technique was utilized adhering to th e principles of ALARA. COMPARISON: Cervical spine MRI 05/04/2012. FINDINGS: No fractures. No subluxation. Prevertebral soft tissues and the C1-C2 interval are intact. No pneumothorax. Small left mastoid effusion is noted. There are poststernotomy changes which are par tially visualized. The visualized brain parenchyma is unremarkable. Mild disc space narrowing at C5-C 6, C6-C7, and C7-T1 with small endplate osteophytes. [id number]-[id number] facet degenerative changes thro ughout the cervical spine. No significant central canal narrowing by CT technique. Severe right-sided neural foraminal narrowing at C3-C4 due to the uncovertebral and facet hypertrophy. IMPRESSION: 1. No fracture or subluxation within the cervical spine. 2. Degenerative changes as described above. ACT 112: Negative or not required by law. Electronically signed by: Aubrey Cee M.D. 09/20/2023 5:09 PM
[2023-09-20] MEDS ORDERED: ALBUTEROL HFA 8 GM INHALER INH PRN (17:25)
[2023-09-20] MEDS ORDERED: LINACLOTIDE 145 MCG CAPSULE PO PRN (17:25)
[2023-09-20] MEDS ORDERED: BUDESONIDE 0.5 MG/2 ML VIAL (PULMICORT) INH PRN (17:25)
[2023-09-20] MEDS ORDERED: hydrOXYzine HCl 25 MG TAB PO PRN (17:25)
[2023-09-20 17:34] LABS: Appearance Urine Clear (Clear); Bacteria Urine Automated None Seen (None Seen); Bilirubin Urine Negative (Negative); Blood Urine Trace (Negative); Cast Urine Automated >20 /lpf (0-2); Color Urine Yellow; Epithelial Cell Urine Auto 0-2 /hpf (0-2); Glucose Urine UA Negative (Negative); Granular Casts Urine Present /lpf (None Prsent); Ketones Urine Trace (Negative); Leukocyte Esterase Urine Negative (Negative); Nitrite Urine Negative (Negative); Protein Urine 4+ (Negative); RBC Urine Automated 0-2 /hpf (0-2); Specific Gravity Urine 1.017 (1.000-1.030); Urobilinogen Urine Negative (Negative); WBC Urine Automated 0-5 /hpf (0-5); pH Urine 5.5 (4.5-7.5)
[2023-09-20] MEDS ORDERED: CETIRIZINE HCL 10 MG TABLET PO PRN (18:03)
[2023-09-20] MEDS: MoRPHine SULFATE IR 15 MG TAB (IMMEDIATE RELEASE) PO PRN (18:14)
[2023-09-20] MEDS: MoRPHine SULFATE CR 15 MG TABCR PO PRN (18:14)
--- NOTE | 2023-09-20 18:21 | Pharmacy Report ---
Pharmacy Glycemic Short Note 2 - Date of Service September 20, 2023 - Glycemic Short BSG Results (Last 24 hours): 09/20/23 09/20/23 13:23 17:34 Glucose 178 H POC Glucose 138 H OUTPATIENT ANTIDIABETIC REGIMEN: * Toujeo 147 units SC AM * Novolog SSI AC (up to 130 units/day) * HbA1c pending ASSESSMENT: * 62 yo M admitted on 09/20/23 secondary to chest pain. Pharmacy has been consulted to assist with inpatient glycemic management. Patient is a Type 2 diabetic as an outpatient. Please refer to outpatient regimen and most recent HbA1c above. * Patient is ordered a T2DM diet. Did take home basal dose prior to admission. * Upon arrival to ED, patient's BSG was 178 mg/dL. Once admitted BSG was 138 mg/dL. * Will hold off on any basal tonight. Dayshift pharmacist to reevaluate basal needs in the morning, will likely be significantly lower than home dose. Novolog will start ACHS based on weight/stress of 3. Will add overnight checks for first night. PLAN FOR INPATIENT GLYCEMIC CONTROL: * Basal insulin * Took 147 units of Toujeo this AM prior to admission * Hold off on further basal dose - reassess in AM * Bolus insulin * NovoLog per scale ACHS or Q6hrs while NPO * Goal Range: Low 110 mg/dL - High 140 mg/dL * Correction Factor: 15 mg/dL/unit * Nutritional / Prandial insulin per carb ratio of 1 unit per 5 grams CHO consumed
--- NOTE | 2023-09-20 18:42 | Emergency Department Note ---
History of Present Illness General Chief Complaint: Chest Pain Stated Complaint: CHEST PAIN, SHOULDER PAIN Time Seen by Provider: 09/20/23 13:04 History of Present Illness Provider Complaint: chest pain Onset (ago): day(s) 2 Duration: intermittent Onset: during exertion Pain Location: left chest Pain Radiation: LUE Severity: moderate Maximum Pain Intensity: 8 Current Pain Intensity: 8 Quality: + sharp Relieved By: + nothing Exacerbated By: + nothing Context: no recent illness, no recent surgery, no recent immobilization, no recent travel or no trauma/injury Associated symptoms: + dyspnea; no nausea, no vomiting, no diaphoresis, no syncope, no palpitations, no fever or no cough Treatments prior to arrival: none Home Medications Medication Instructions Recorded Confirmed Type albuterol sulfate 90 mcg/actuation 2 puff inhalation Q6H PRN Wheezing 06/26/18 09/20/23 History aerosol inhaler Oxygen Home #1 ea 04/30/19 09/20/23 History aspirin 81 mg tablet,delayed 81 mg PO HS 03/12/20 09/20/23 History release blood-glucose meter,continuous 02/03/21 09/20/23 History (Dexcom G6 Stogy Maker) blood-glucose transmitter (Dexcom 02/03/21 09/20/23 History G6 Transmitter device) cetirizine 10 mg capsule (Zyrtec) 10 mg PO DAILY PRN Allergy Symptoms 03/05/21 09/20/23 History hydroxyzine pamoate 25 mg capsule 25 mg PO Q8H PRN anxiety 5 days 06/16/21 09/20/23 Rx (Vistaril) #15 caps morphine 100 mg tablet,extended 100 mg PO TID@08,14,20 10/12/21 09/20/23 History release clopidogrel 75 mg tablet (Plavix) 75 mg PO QAM 05/16/22 09/20/23 History budesonide 0.5 mg/2 mL suspension 0.5 mg inhalation BID PRN 06/13/22 09/20/23 History for nebulization Shortness Of Breath Or Wheezing linaclotide 145 mcg capsule 145 mcg PO DAILY PRN Constipation 08/01/22 09/20/23 History (Linzess) morphine 30 mg tablet,extended 30 mg PO Q8H PRN breakthrough pain 08/01/22 09/20/23 History release 6-10 blood sugar diagnostic #900 ea 08/19/22 09/20/23 Rx morphine 15 mg immediate release 15 mg PO Q6 PRN Breakthrough Pain 09/13/22 09/20/23 History tablet 1-6 rosuvastatin 5 mg tablet (Crestor) 5 mg PO QAM 11/08/22 09/20/23 History montelukast 10 mg tablet 10 mg PO DAILY pt request 12/22/22 09/20/23 History pantoprazole 40 mg tablet,delayed 40 mg PO .QOD Heartburn 12/22/22 09/20/23 History release blood sugar diagnostic (OneTouch #300 ea 12/29/22 09/20/23 Rx Verio test strips) blood-glucose meter (Accu-Chek #1 ea 12/29/22 09/20/23 Rx Guide Glucose Meter) blood-glucose meter (OneTouch #1 ea 12/29/22 09/20/23 Rx Ultra2 Meter) blood-glucose meter (OneTouch 12/29/22 09/20/23 History Verio Flex Meter) blood sugar diagnostic (OneTouch #1,500 ea 01/04/23 09/20/23 Rx Ultra Test strips) Covagen G6 Sensor (blood-glucose #3 ea 01/26/23 09/20/23 Rx sensor) furosemide 20 mg tablet 40 mg PO DAILY 02/06/23 09/20/23 History losartan 25 mg tablet 25 mg PO DAILY #90 tabs 03/24/23 09/20/23 Rx Accu-Chek Guide test strips (blood #400 ea 04/19/23 09/20/23 Rx sugar diagnostic) testosterone 2 pump topical HS #225 grams 04/21/23 09/20/23 Rx insulin aspart U-100 100 unit/mL See Rx Instructions subcut WM 90 07/13/23 09/20/23 Rx (3 mL) subcutaneous pen (Novolog days #120 mL FlexPen U-100 Insulin aspart) cholecalciferol (vitamin D3) 25 4,000 unit PO HS 07/18/23 09/20/23 History mcg (1,000 unit) capsule (Vitamin D3) metoprolol succinate 25 mg 25 mg PO DAILY 07/18/23 09/20/23 History tablet,extended release 24 hr oxybutynin chloride 5 mg 5 mg PO DAILY #30 tabs 07/19/23 09/20/23 Rx tablet,extended release 24 hr clindamycin phosphate 1 % lotion 1 applic topical DAILY PRN flare up 09/20/23 09/20/23 History insulin glargine U-300 conc 300 147 unit subcut QAM 09/20/23 09/20/23 History unit/mL (1.5 mL) subcutaneous pen (Toujeo SoloStar U-300 Insulin) mupirocin 2 % topical ointment 1 applic topical DAILY PRN flare up 09/20/23 09/20/23 History nicotine 21 mg/24 hr daily 1 patch transdermal DAILY 09/20/23 09/20/23 History transdermal patch Allergies Allergy/AdvReac Type Severity Reaction Status Date / Time clarithromycin Allergy Severe DAMAGED Verified 09/20/23 18:40 LIVER PER PT-REQUIRED HOSPITALIZATION latex Allergy Intermediate skin Verified 09/20/23 18:40 irritation/rash ticagrelor [From Brilinta] AdvReac Severe sob Verified 09/20/23 18:40 adhesive AdvReac Mild SKIN Verified 09/20/23 18:40 RASH-WITH SOME TAPES dulaglutide AdvReac Unknown hx Verified 09/20/23 18:40 pancreatitis exenatide AdvReac Unknown hx Verified 09/20/23 18:40 pancreatitis liraglutide AdvReac Unknown hx Verified 09/20/23 18:40 pancreatitis semaglutide AdvReac Unknown hx Verified 09/20/23 18:40 pancreatitis Past Med/Surg History Problem List (Updated 09/20/23 @ 18:49 by Kristofer Costa MD) Leukocytosis Polycythemia, secondary Left shoulder pain Left-sided chest pain Elevated troponin (Acute) Substernal chest pain (Acute) Acute on chronic diastolic (congestive) heart failure Coronary stent restenosis with uncertain cause Status post insertion of drug-eluting stent into left anterior descending (LAD) artery Elevated troponin (Acute) Noncompliance Non-compliant behavior (Acute) Urethral stricture Hematuria, gross Gastroparesis Leukocytosis (Acute) Abdominal pain (Acute) Chest pain (Acute) Lab test negative for COVID-19 virus (Acute) Opioid dependence Pulmonary emphysema CAD (coronary artery disease) (Acute) Pancreatitis Tobacco abuse Obesity Type 2 diabetes mellitus with insulin therapy Background diabetic retinopathy associated with type 2 diabetes mellitus Diabetes type 2, uncontrolled Chronic pain syndrome (Acute) Diabetic nephropathy associated with type 2 diabetes mellitus Diabetic peripheral neuropathy associated with type 2 diabetes mellitus Dysesthesia Dyslipidemia 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 Vitamin D deficiency Hypertension Obstructive sleep apnea Lumbar stenosis with neurogenic claudication Chronic back pain Asthma BPH (benign prostatic hyperplasia) COPD (chronic obstructive pulmonary disease) Chronic diastolic CHF (congestive heart failure) (Acute) EF 63% 05/2021 echo Therapeutic opioid-induced constipation (OIC) Postlaminectomy syndrome of lumbosacral region Tinea pedis Chronic kidney disease (CKD) Medical History Myocardial Infarction Hypervolemia Hypertensive urgency Chest pain Bifascicular block Medical cannabis use Transient ischemic attack (TIA) unsure of date - treated at [facility] -- 5+ years ago. On home oxygen therapy 3 lpm via n/c Migraines Diverticular disease SOBOE (shortness of breath on exertion) Sleep apnea CPAP WITH 4 L/MIN HS. S/P UPPP. History of SCC (squamous cell carcinoma) of skin History of basal cell carcinoma Obesity Post traumatic stress disorder Degenerative disc disease Chronic back pain History of skin cancer S/P EXCISION OF SCALP History of acute pancreatitis RELATED TO A STONE OBSTRUCTION, 10/2017 Irritable bowel syndrome (IBS) GERD (gastroesophageal reflux disease) Diabetes mellitus, type 2 IDDM Tachycardia Surgical History History of coronary artery bypass graft History of heart artery stent x1 stent (02/2022) History of cardiac cath 02/2022 with 1 stent (LAD) Dr Leach at [facility]. S/P cholecystectomy 07/02/1819 Grade 2 view, MAC 3, ETT 8. History of tonsillectomy History of uvulopalatopharyngoplasty FOR TREATMENT OF AR History of surgery RT ELBOW History of repair of rotator cuff LEFT SHOULDER History of colonoscopy History of ERCP 11/2017 [facility] History of esophagogastroduodenoscopy (EGD) History of cardiac cath 2017-NO STENTS Fusion of spine MULTIPLE LUMBARX2 History of appendectomy History of back surgery total of 6 back surgeries. 2 failed surgeries Family History Other COPD (chronic obstructive pulmonary disease) Cancer Diabetes Heart disease Hypertension Social History Smoking Status: Current every day smoker Tobacco Type: Cigarettes packs per day: 1; Cigarettes Per Day: 20; Second Hand Exposure: Yes; Do You Dip or Chew Tobacco: No; Hx Alcohol Use: No Hx Substance Use: Yes Last Used Substance: Just Prior to Arrival Last Used Substance Other:: medical marijuana Substance Use Type Other:: MEDICAL MARIJUANA Preferred Language: Kazakh Communication Ability: Effective Visual Impairment: No Limitations Manager Of Financial Required: No Beliefs That Will Affect Care: None marital status: Current Living Situation: Spouse Current Living Situation Comment: [employer] current occupation: On disability Feels Safe at Home: Yes Safety Concerns: Feels Safe At This Time Assistive Devices: Cane, Glasses and Walker Physical Exam Vital Signs Vital Signs - 24 hr 09/20/23 12:58 09/20/23 13:21 09/20/23 13:21 Temperature 36.6 C Temperature Source Temporal Artery Scan Pulse Rate 110 H Pulse Rate [Apical] 104 H Respiratory Rate 20 16 Respiratory Effort / Characteristics Non-Labored Respiratory Depth Normal Normal Blood Pressure 177/82 H Blood Pressure [Left Arm] 176/85 H Blood Pressure Mean 113 Blood Pressure Mean [Left Arm] 115 Pulse Oximetry 92 91 91 Oxygen Delivery Method Room Air Room Air Room Air Oxygen Flow Rate 0 Sepsis Recent Fever Within 48 Hours No Sepsis New/Unexplained Change in Mental Status No Sepsis Action Taken by Nursing No Action Required 09/20/23 13:21 Temperature Temperature Source Pulse Rate 101 H Pulse Rate [Apical] Respiratory Rate Respiratory Effort / Characteristics Respiratory Depth Blood Pressure Blood Pressure [Left Arm] Blood Pressure Mean Blood Pressure Mean [Left Arm] Pulse Oximetry Oxygen Delivery Method Oxygen Flow Rate Sepsis Recent Fever Within 48 Hours Sepsis New/Unexplained Change in Mental Status Sepsis Action Taken by Nursing Physical Exam GENERAL: oriented to person, place, and time. appears well-developed and well- nourished. HENT: Exam performed. - Head: Normocephalic and atraumatic. EYES: Conjunctivae and EOM are normal. Right eye exhibits no discharge. Left eye exhibits no discharge. No scleral icterus. NECK: Normal range of motion. Neck supple. No JVD present. CV: Normal rate, regular rhythm, normal heart sounds and intact distal pulses. There is no peripheral edema. Palpable radial pulses bue. PULM/CHEST: Effort normal and breath sounds normal. No respiratory distress. No stridor. no wheezes. no rales. ABD: The abdomen is soft. There is no tenderness. NEURO: Motor and sensation grossly intact. SKIN: Skin is warm and dry. He is not diaphoretic. PSYCH: normal mood and affect. Behavior is normal. Judgment and thought content normal. Course Course 1304: The patient was evaluated in room B11. A complete history and physical exam was performed Cardiac monitoring: An order was placed for continuous cardiac monitoring. The monitor shows a rate of 100 with sinus rhythm interpreted by me 1445: Vital signs stable. Labs significant for white blood cell count 16.21. Troponin negative. Imaging within normal limits. Patient will be admitted to the [facility] team for chest pain rule out ACS. Administered Medications Acetaminophen (Acetaminophen 325 Mg Tab) 650 mg PO Q4H PRN PRN Reason: pain/fever Stop: 10/20/23 15:52 Last Admin: 09/20/23 17:02 Dose: 650 mg Documented By: DIEUDONNE Morphine Sulfate (Morphine Sulfate Cr 15 Mg Tabcr) 30 mg PO Q8H PRN PRN Reason: breakthrough pain 7-10 Stop: 10/04/23 18:06 Last Admin: 09/20/23 18:14 Dose: 30 mg Documented By: TRUE Morphine Sulfate (Morphine Sulfate Ir 15 Mg Tab (Immediate Release)) 15 mg PO Q6 PRN PRN Reason: Breakthrough Pain 1-6 Stop: 10/04/23 17:29 Last Admin: 09/20/23 18:14 Dose: 15 mg Documented By: TRUE Discontinued Medications Ketorolac Tromethamine (Ketorolac Tromethamine 15 Mg/Ml Vial) 15 mg IV NOW STA Stop: 09/20/23 14:28 Last Admin: 09/20/23 14:36 Dose: 15 mg Documented By: NEGRITO Nitroglycerin (Nitroglycerin Sl 0.4 Mg/Tab Tab) 0.4 mg SL NOW STA Stop: 09/20/23 14:28 Last Admin: 09/20/23 14:36 Dose: 0.4 mg Documented By: NEGRITO Medical Decision Making Laboratory Data Attestation: I reviewed the patient's lab results. 09/20/23 13:23 09/20/23 13:23 Labs: Lab Results 09/20/23 Range/Units 13:23 WBC 16.21 H (4.8-10.8) K/ul RBC 5.75 (4.70-6.10) M/uL Hgb 13.9 L (14.0-18.0) g/dl Hct 45.8 (42.0-52.0) % MCV 79.7 L (80.0-100.0) fL MCH 24.2 L (25.0-34.0) pg MCHC 30.3 L (32.0-36.0) g/dL RDW Std Deviation 48.8 H (36.4-46.3) fL RDW Coeff of Ben 17.1 H (11.5-14.5) % Plt Count 311 (130-400) K/uL MPV 8.8 L (9.4-12.4) fL Immature Gran % (Auto) 0.4 % Neut % (Auto) 77.7 % Lymph % (Auto) 10.3 % [place] % (Auto) 10.7 % Eos % (Auto) 0.7 % Baso % (Auto) 0.2 % Neut # (Auto) 12.59 H (1.40-6.50) K/uL Lymph # (Auto) 1.67 (1.20-3.40) K/uL [place] # (Auto) 1.73 H (0.11-0.59) K/uL Eos # (Auto) 0.11 (0.00-0.50) K/uL Baso # (Auto) 0.04 (0.00-0.20) K/uL Immature Gran # (Auto) 0.07 (0.01-0.20) K/uL PT 9.8 (9.0-12.0) Seconds INR 0.9 (0.9-1.1) APTT 26 (21-31) Seconds PTT Ratio 1.0 Sodium 134 L (136-145) mmol/L Potassium 5.0 (3.5-5.1) mmol/L Chloride 101 (98-107) mmol/L Carbon Dioxide 29 (21-32) mmol/L Anion Gap 4 (3-11) BUN 16 (6-23) mg/dl Creatinine 1.27 (0.6-1.4) mg/dl Est Cr Clr Drug Dosing 78.1 ml/min Est GFR ( Amer) 70.7 ml/min Est GFR (Non-Af Amer) 61.0 ml/min BUN/Creatinine Ratio 12.6 (10-20) Glucose 178 H (70-99(Fasting)) mg/dl Calcium 9.4 (8.6-10.3) mg/dl Iron 46 (35-175) mcg/dl TIBC 447 (250-450) mcg/dl Unsaturated IBC 401 H (155-355) mcg/dl Transferrin % Sat 10 L (20-50) % Ferritin 15.9 (8-388) ng/ml Troponin I High Sens 12.5 (0-20) pg/ml B-Natriuretic Peptide 15 (0-100) pg/ml Lipase 12 (11-82) U/L Vitamin B12 243 (180-914) pg/ml Folate 7.39 (>5.38) ng/ml Imaging Data Chest x-ray: Attestation: I personally reviewed and interpreted this imaging study as follows: My impression: Chest x-ray negative. Airway clear. No pneumothorax. No consolidation. No cardiomegaly or cephalization.. No free air under the diaphragm. No fractures of the skeletal structures. Radiologist's impression: Chest X-Ray 09/20/23 13:05 XR chest 1V portable HISTORY: Chest pain, nonspecific COMPARISON: Chest 11/08/2022. FINDINGS: No pneumothorax. No pleural effusions. No pneumothorax. No pleural effusions. No focal lung consolidations to suggest a pneumonia. The heart remains mildly enlarged. There are poststernotomy changes. Mild chronic interstitial thickening persists. No evidence for pulmonary edema. IMPRESSION: No significant change compared to the prior study. No acute process. ACT 112: Negative or not required by law. Electronically signed by: Aubrey Cee M.D. 09/20/2023 2:11 PM ECG Data Attestation: I personally reviewed and interpreted this ECG as follows: Indication: chest pain Rate (beats per minute): 104 Rhythm: normal sinus Additional Comments: [place] 154 QRS 122 QTc 468. Bifascicular block present. [facility] Narrative 1304: The patient was evaluated in room B11. A complete history and physical exam was performed Cardiac monitoring: An order was placed for continuous cardiac monitoring. The monitor shows a rate of 100 with sinus rhythm interpreted by me 1445: Vital signs stable. Labs significant for white blood cell count 16.21. Troponin negative. Imaging within normal limits. Patient will be admitted to the [facility] team for chest pain rule out ACS. Impression & Plan Chest pain Discharge Plan Visit Data Chief Complaint: Chest Pain Stated Complaint: CHEST PAIN, SHOULDER PAIN ED Provider: Kristofer Costa Discharge Problem: Chest pain Patient Disposition: Admitted As Inpatient Discharge Instructions Interventions: ED Discharge Assessment Last Done: 09/20/23 15:53 Discharge Problem: Chest pain Qualifiers: Chest pain type: unspecified Qualified Code(s): R07.9 - Chest pain, unspecified
[2023-09-20] MEDS: INSULIN ASPART PER UNIT CHARGE SC STA (18:43)
[2023-09-20] MEDS: LIDOCAINE 5% 1 PATCH TD STA (20:31)
[2023-09-20] MEDS: ASPIRIN 81 MG ECTAB PO SCH (20:32)
[2023-09-20] MEDS: MoRPHine SULFATE CR 100 MG TABCR PO SCH (20:33)
[2023-09-20] MEDS: PATIENT'S OWN CONTROLLED MED 1 PO SCH (20:34)
[2023-09-20] MEDS: DICLOFENAC SOD 1% GEL 100 GM TUBE EXT SCH (20:34)
[2023-09-20] MEDS: INSULIN ASPART PER UNIT CHARGE SC SCH (21:35)
[2023-09-20] MEDS: SODIUM CHLORIDE 0.9% 1,000 ML IV ONE (21:55)
[2023-09-20] MEDS: KETOROLAC TROMETHAMINE 15 MG/ML VIAL IV ONE (22:09)
[2023-09-20] MEDS: ALBUMIN 25% 25 GM/100 ML VIAL IV ONE (22:53)
[2023-09-20] MEDS: FUROSEMIDE INJ 20 MG/2 ML VIAL IV ONE (22:54)
[2023-09-21] MEDS: INSULIN ASPART PER UNIT CHARGE SC SCH (00:48)
[2023-09-21] MEDS: FUROSEMIDE INJ 20 MG/2 ML VIAL IV ONE ×2 (01:19→12:02)
--- OUTSIDE RECORDS SUMMARY | 2023-09-21 05:32 | External Medical Summary | Continuity of Care Document ---
Author Name Unknown Organization [address] Address [address] [place] [id number] Care Team Providers Care Countersinker Balance Screw Hole Name Role Phone Oswaldo Sampson Primary Care Physician [phone] [id number] Date(s): 09/15/23 - 09/15/[address] - Specialties Entrance A, [address] [place] [phone] Encounter Diagnosis Failed back syndrome(Discharge Diagnosis) - 09/15/23 Chronic pain(Discharge Diagnosis) - 09/15/23 Chronic, continuous use of opioids(Discharge Diagnosis) - 09/15/23 Discharge Disposition: Home or Self Care Attending Physician: MD Ray, [facility] Allergies, Adverse Reactions, Alerts Substance Criticality Severity Reaction Reaction Severity Status clarithromycin liver problems Active Biaxin Active Latex Active Assessment and Plan Extracted from: Title:TeleHealth Visit Note Author:MD Ray, [facility] Date:09/15/23 Chronic severe pain due to m ultiple lumbar spine surgeries. Chronic continuous use of opioids in high doses. I will continue the patient on his current regimen. He will return in 3 months. Medications albuterol 0.083% for nebulization Start: 03/26/09 10:33:27 AM EST, inhaled, q6h, Refills: 0, current medication from another provider Start Date: 03/26/09 Status: Ordered aspirin 81 mg oral delayed release tablet Start: 05/05/17 1:51:00 PM EST, 1 tab, PO, Daily Start Date: 05/05/17 Status: Ordered cetirizine 10 mg oral tablet Start: 06/03/22 1:05:00 PM EST, 10 mg =, ORAL, 1 Refill(s) Start Date: 06/03/22 Status: Ordered docusate-senna 50 mg-8.6 mg oral tablet Start: 06/03/22 1:05:00 PM EST, ORAL, 1 Refill(s) Start Date: 06/03/22 Status: Ordered furosemide 40 mg oral tablet Start: 06/03/22 1:05:00 PM EST, 40 mg =, ORAL Start Date: 06/03/22 Status: Ordered hydrOXYzine Start: 06/29/21 3:32:00 PM EDT Start Date: 06/29/21 Status: Ordered lubiprostone 8 mcg oral capsule Start: 06/03/22 1:05:00 PM EST, 8.0 ug, ORAL Start Date: 06/03/22 Status: Ordered metoprolol succinate 25 mg oral tablet, extended release Start: 05/05/17 1:50:00 PM EST, 0.5 tab, PO, Daily Start Date: 05/05/17 Status: Ordered MS Contin 100 mg oral tablet, extended release Start: 09/15/23 5:55:00 PM EDT, 1 tab, PO, q8h, Disp# 90 tab, Refills: 0, Skip if feeling drowsy!!, Pharmacy: [id number], Earliest Fill Date: 11/21/23 Start Date: 09/15/23 Stop Date: 12/21/23 Status: Ordered MS Contin 30 mg oral tablet, extended release Start: 09/15/23 5:55:00 PM EDT, 1 tab, PO, q8h, Disp# 90 tab, Refills: 0, Skip if feeling groggy, Pharmacy: [facility], Earliest Fill Date: 11/21/23 Start Date: 09/15/23 Stop Date: 12/21/23 Status: Ordered MSIR 15 mg oral tablet Start: 09/15/23 5:55:00 PM EDT, 1 tab, PO, q6h, Disp# 120 tab, Refills: 0, Skip if feeling drowsy., PRN: as needed for pain, Pharmacy: [facility], Earliest Fill Date: 11/21/23 Start Date: 09/15/23 Stop Date: 12/21/23 Status: Ordered naloxone 4 mg/0.1 mL nasal spray Start: 03/01/21 12:01:00 PM EST, 4 mg =, intranasal, ONCE, Disp# 2 each, Pharmacy: [facility] Start Date: 03/01/21 Status: Ordered nicotine 4 mg oral transmucosal lozenge Start: 06/03/22 1:04:00 PM EST, ORAL, 3 Refill(s) Start Date: 06/03/22 Status: Ordered nitroglycerin 0.4 mg sublingual tablet Start: 06/03/22 1:04:00 PM EST, 0.4 mg =, SUBLINGUAL Start Date: 06/03/22 Status: Ordered NovoLOG 100 units/mL subcutaneous solution Start: 07/03/13 10:42:00 AM EDT, subQ, ac, sliding scale Start Date: 07/03/13 Status: Ordered ondansetron 4 mg oral tablet, disintegrating DISSOLVE 1 TABLET IN MOUTH ONCE DAILY NEEDED FOR NAUSEA AND VOMITING Start Date: 06/17/22 Status: Ordered oxygen Start: 10/13/17 12:29:00 PM EDT, oxygen, 3L at night Start Date: 10/13/17 Status: Ordered pantoprazole 20 mg oral delayed release tablet Start: 06/03/22 1:06:00 PM EST, 20 mg =, ORAL, 3 Refill(s) Start Date: 06/03/22 Status: Ordered PriLOSEC Start: 06/19/14 1:24:00 PM EST, See Instructions, 1 tab PO Daily prn Start Date: 06/19/14 Status: Ordered rosuvastatin 5 mg oral tablet Start: 06/03/22 1:04:00 PM EST, 30 each, TAKE 1 TABLET BY MOUTH ONCE DAILY IN THE MORNING Start Date: 06/03/22 Status: Ordered sildenafil 100 mg oral tablet Start: 06/03/22 1:06:00 PM EST, 100 mg =, ORAL Start Date: 06/03/22 Status: Ordered sucralfate 1 g oral tablet TAKE 1 TABLET BY MOUTH 4 TIMES DAILY BEFORE MEAL(S) AND AT BEDTIME Start Date: 06/17/22 Status: Ordered Toujeo SoloStar Start: 10/13/17 12:27:00 PM EDT Start Date: 10/13/17 Status: Ordered Vitamin D3 1000 intl units oral capsule Start: 05/05/17 1:53:00 PM EST, 1 cap, PO, Daily Start Date: 05/05/17 Status: Ordered ZyrTEC 10 mg oral tablet Start: 10/13/17 12:29:00 PM EDT, 1 tab, PO, Daily, PRN: as needed for allergy symptoms Start Date: 10/13/17 Status: Ordered Mental Status 09/15/23 Barriers to Learning one year None evide nt Mandatory Health Literacy Documentation Yes Health Literacy Communication Barriers N ever Primary Language Danish Problem List Condition Confirmation Course Effective Dates Status Health St atus Informant Asthma Confirmed Active Back pain Confirmed Active BPH Confirmed Active Chronic kidney disease Confirmed Active Chronic, continuous use of opioids Confirmed Active Diabetes Confirmed Active Erectile dysfunction Confirmed Active GERD Confirmed Active Hypertension Confirmed Active Low back pain Confirmed Active Lumbar spondylosis Confirmed Active Neck pain Confirmed Active Neurogenic claudication Confirmed Active Failed back syndrome Confirmed Active Tobacco user Confirmed Active Weight monitoring Confirmed Active Diagnosis Diagnosis Type Effective Dates Health Status Clinical Service Informant Chronic, continuous use of opioids Discharge Diagnosis 09/15/23 Failed back syndrome Discharge Diagnosis 09/15/23 Chronic pain Discharge Diagnosis 09/15/23 Procedures Procedure Date Related Diagnosis Body Site Status Back 1 Completed Radiofrequency ablation of n erve root of lumbar spine using fluoroscopic guidance Completed 1Surgery x 6 Social History Social History Type Response Smoking Status Current every day li ght smoker Sex Male Chronic Pain Outpt Note * MD Ray, Joseph: PERFORM, MODIFY Event Display: Chronic Pain Outpt Note Authored Date: TeleHealth Visit Note I have confirmed the patients name and date of . The patient has consented to this service,and I have advised the patient that this is a billable visit for which they may be subject to a copay. The patient initiated this visit after they were informed of the availability of TeleHealth for this medically necessary visit. I am located at my office. The patient is located at home. This visit was conducted via live audio/video technology via [employer]. Chief Complaint 3 month follow up History of Present Illness [facility]aw [facility]. He waslast seen on06/02/23. He is a 06-[id number] past medical history of CAD, coronary stent placement, on Clopidogrel (previously on Ticagrelor), poorly controlled diabetes type II, HTN, CKD, asthma, who had multiple lumbar spine surgeriesincludinginstrumented and noninstrumented fusions.Please referto the note from 06/17/2022for the details of his historyandtreatmentsfor his chronic disablinglow back pain. On presentation todayMr. Crusthaving LBP which radiates to his legs. It is made worse by walking and bending. He has been using a walker. He was seen by Dr. Collins who ordered MRI of the C-, T-and L-spine to r/o myelopathy. I reviewed the images which did not show the cord signal changes. Hehas pseudoarthrosis in the lumbar spine which hasn't been addressed due the host of comorbidities.He reports that after voiding he has continued dripping requiring changing his underwear. He spendsmost of the time at his house and is sedentary due to the SOB. He had cystoscopy after which he still has some penile pain. He has constipation which is under control when he takes laxatives with BM every 2-3 days. He has AR and is using CPAP. He denies being depressed but endorses frustration dueto multiple medical issues. He reports having bilateral leg swelling as well as the swelling of hishands. He is currently takingextended release [id number] mgand 30 mgpills 1 of each3 times a dayas well asmorphine sulfate immediate release 15 mg4 times a dayfor a total [id number] of morphine a day.He has naloxone nasal spray and his knows when and how to use it. The PDMP was checked and there were no red flags. Review of Systems As above. Physical Exam The patient was awake, alert, and oriented and in NAD. The rest of the examination wasn't availabledue to the nature of this visit. Assessment/Plan Chronic severe pain due to multiple lumbar spine surgeries. Chronic continuous use of opioids in high doses. I will continue the patient on his current regimen. He will return in 3 months. Problem List/Past Medical History Ongoing Asthma Back pain BPH Chronic kidney disease Chronic, continuous use of opioids Diabetes Erectile dysfunction Failed back syndrome GERD Hypertension Low back pain Lumbar spondylosis Neck pain Neurogenic claudication Tobacco user Weight monitoring Resolved Tobacco abuse. Procedure/Surgical History Radiofrequency ablation of nerve root of lumbar spine using fluoroscopic guidanceBack Medications albuterol(albuterol 0.083% for nebulization), inhaled, q6h aspirin(aspirin 81 mg oral delayed release tablet), 81 mg= 1 tab, PO, Daily cetirizine(cetirizine 10 mg oral tablet), 10 mg cetirizine(ZyrTEC 10 mg oral tablet), 10 mg= 1 tab, PO, Daily, PRN cholecalciferol(Vitamin D3 1000 intl units oral capsule), 1000 Int_Unit= 1 cap, PO, Daily docusate-senna(docusate-senna 50 mg-8.6 mg oral tablet) furosemide(furosemide 40 mg oral tablet), 40 mg hydrOXYzine insulin aspart(NovoLOG 100 units/mL subcutaneous solution), subQ, ac insulin glargine(Toujeo SoloStar) lubiprostone(lubiprostone 8 mcg oral capsule), 8.0 ug metoprolol(metoprolol succinate 25 mg oral tablet, extended release), 12.5 mg= 0.5 tab, PO, Daily morphine(MS Contin 100 mg oral tablet, extended release), 100 mg= 1 tab, PO, q8h morphine(MS Contin 30 mg oral tablet, extended release), 30 mg= 1 tab, PO, q8h morphine(MSIR 15 mg oral tablet), 15 mg= 1 tab, PO, q6h, PRN naloxone(naloxone 4 mg/0.1 mL nasal spray), 4 mg, intranasal, ONCE nicotine(nicotine 4 mg oral transmucosal lozenge) nitroglycerin(nitroglycerin 0.4 mg sublingual tablet), 0.4 mg omeprazole(PriLOSEC), See Instructions ondansetron(ondansetron 4 mg oral tablet, disintegrating) pantoprazole(pantoprazole 20 mg oral delayed release tablet), 20 mg rosuvastatin(rosuvastatin 5 mg oral tablet) sildenafil(sildenafil 100 mg oral tablet), 100 mg sucralfate(sucralfate 1 g oral tablet) unknown medication(oxygen) Allergies Biaxin Latex clarithromycinliver problems Social History Smoking Status Current every day light smoker Recommendations Health Maintenance Pending(in the next year) OverDue Adult Influenza Vaccine due10/14/22and every 1year Due Adult COVID-19 Vaccination due09/15/23Unknown Frequency Adult Social Determinants of Health Screening due09/15/23Unknown Frequency Adult Tdap/Td Vaccine due09/15/23Unknown Frequency Colorectal Cancer Screening due09/15/23Unknown Frequency Diabetes Management A1c due09/15/23Unknown Frequency Diabetes Nephropathy Management due09/15/23Unknown Frequency Diabetic Eye Exam due09/15/23Unknown Frequency Lipid Screening due09/15/23Unknown Frequency Pneumococcal Vaccine Adults and Adolescents with Chronic Illness due09/15/23One-time only Shingles Vaccine due09/15/23One-time only Due In Future Body Mass Index not due until05/02/24and every 366day Satisfied(in the past 1 year) Satisfied Body Mass Index on05/02/23.Satisfied by LYNNE Ott Stephanie L Electronic Signature on File Electronically Reviewed/Signed by: Joseph Bell MD Author Signature Dt/Tm:09/15/2023 05:50 PM Professor, Pain Medicine Division Department of Anesthesiology and Perioperative Medicine [facility] [address], [place] [address] VG Patient Care team information Care Team Personnel Name: MD Ray, Joseph Position: Physician - Anesthesiologist Member Role: Lifetime Relationship Address: Address: [address] [place] [id number] [place] Name: MD Camilla, Oswaldo Neil Position: Referring DIRECT Member Role: Primary Care Provider Address: Address: [address] [place] [id number] [place] Name: DO Camara Scott A Position: Referring DIRECT Member Role: Lifetime Relationship Address: Address: [address] [place] [address] [place] Name: Maria Maciel Position: HIS Supervisor_P Member Role: HIS Lifetime Care Team Related Persons Name: JERALD RIOS Address: home [address] [place], [place] [phone]
[2023-09-21 05:54] LABS: Hematocrit (blood only) 37.8 % (42.0-52.0); Hemoglobin 11.6 g/dl (14.0-18.0); Mean Corpuscular Hemoglobin 24.3 pg (25.0-34.0); Mean Corpuscular Hgb Conc 30.7 g/dL (32.0-36.0); Mean Corpuscular Volume 79.2 fL (80.0-100.0); Platelet Count 231 K/uL (130-400); RDW Coefficient of Variation 16.9 % (11.5-14.5); RDW Standard Deviation 48.3 fL (36.4-46.3); Red Blood Count 4.77 M/uL (4.70-6.10); White Blood Count 9.09 K/ul (4.8-10.8)
[2023-09-21 05:55] LABS: Basophils # (auto) 0.04 K/uL (0.00-0.20); Basophils % (auto) 0.4 %; Eosinophils # (auto) 0.18 K/uL (0.00-0.50); Immature Granulocytes # (auto) 0.03 K/uL (0.01-0.20); Immature Granulocytes % (auto) 0.3 %; Lymphocytes # (auto) 1.52 K/uL (1.20-3.40); Lymphocytes % (auto) 16.7 %; Monocytes # (auto) 1.32 K/uL (0.11-0.59); Monocytes % (auto) 14.5 %; Neutrophils % (auto) 66.1 %
[2023-09-21 06:13] LABS: Calcium 8.6 mg/dl (8.6-10.3); Est GFR (African American) 53.5 ml/min; Est GFR (Non-African American) 46.1 ml/min; Magnesium 2.1 mg/dl (1.7-2.4); Phosphorus 4.3 mg/dl (2.5-4.9); Potassium 4.5 mmol/L (3.5-5.1)
--- NOTE | 2023-09-21 07:16 | Communication Note ---
Date of Service: September 21, 2023 Made aware of a.m. creatinine of 1.6. Overnight, patient requested for IV Toradol extra dose for left-sided chest pain after first dose given at the ER which worked for his pain. Patient also mentioned to RN increased fluid retention and leg swelling. Lasix albumin administered overnight. AP ARF Check UA Hold ARB and Lasix IV albumin 1 dose now
[2023-09-21 07:29] LABS: Estimated Average Glucose 171 mg/dl; Hemoglobin A1C 7.6 % (4.5-5.6)
[2023-09-21] MEDS: PERFLUTREN LIPID MICROSPHERE (DEFINITY) IV ONE (08:11)
--- NOTE | 2023-09-21 08:27 | Hospitalist Progress Note ---
Date of Service September 21, 2023 Assessment & Plan (1) Left-sided chest pain: (2) Hypertension: (3) Dyslipidemia: Plan: Past hospitalizations: 09/2022 had PCI w/ [facility]RON for tx of NSTEMI @ [facility]. 10/2022 for repeat NSTEMI and ultimately had to be transferred to [facility] to undergo CABG procedure. - Recent echo October 2022 with EF 55-60%, grade I diastolic dysfunction, WMA and hypokinesis of apiccal and mid segments of the anterior wall reviewed, repeat pending - WBC is improved from 16 to 9 - Trop was 12.5, BNP 15 on admission, repeating one more troponin for completeness this morning-- NEG x 2 - EKG reviewed and is without acute findings - aspirin and clopidogrel for DAPT - BP has consistently been elevated with SBP 160s-170s, PRN 5mg IV hydralazine in situation where SBP>175 ---improved s/p lasix - Cards consulted- appreciate recs: metoprolol succinate increased to 37.5, overnight lasix 20 mg IV and again this morning and albumin IV - will determine in am if additional diuretic necessary - losartan held for now, resume as able pending Cr./BUN - K+ improved - Cont statin (4) Acute kidney injury superimposed on CKD: Plan: - Cr 1.6, appears baseline is 1.2, bumped overnight likely due to diuresis, however pt is obviously overloaded with edema in legs, tight abdomen, SOb with minimal exertion. PO lasix and losartan were held on admission. 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 Cont nicotine patch - Chest x-ray negative for acute process - Smoking cessation (10) Type 2 diabetes mellitus with insulin therapy: Plan: - SSI regimen in place, did order for 100 units of insulin glargine to be given in AM. - Glycemic pharmacy consulted - A1C 7.4 (11) Polycythemia, secondary: Plan: - Chronic, stable, seeing phlebotomy every 2-3 weeks for appropriate management therapy. - Follows with [facility] according to [facility] records. - he is to undergo routine CBC w/diff testing [id number], phlebotomy if Hct>45. - consider heme/onc consult if Hct level increases >45 (12) GERD (gastroesophageal reflux disease): Plan: -Will continue ITEM PROCESSOR PPI therapy while hospitalized. (13) Chronic pain syndrome: Plan: -Cont opioid therapy -PT/OT - Hx constipation: Miralax daily, PRN Linzess DVT Prophylaxis: SCDs, aspirn, plavix Code : Full Lines: PIV x 1 FEN/GI: Low sodium/HH/DM diet Dispo: From home, likely to remain in hospital x 1 more day A total of 60 minutes were spent with greater than 50% of that time face to face with the patient, personally reviewing all current laboratories, imaging ayse dies, past medication reconciliation, outpatient chart review, and discussion with specialists to collaborate care for the patient with attending. Please see attending documentation for corrections and/or additions. Admission and Anticipated Discharge Date Admission Date: September 20, 2023 Supervising Physician Co-Signing Physician Notes Patient seen and examined Reports left chest/shoulder pain Patient's pain is reproducible on exam Negative trop Based on history and findings so far, pain is likely musculoskeletal in nature Mild LAUREN today. Losartan held today. Recheck and monitor renal function Hold further ketorolac/NSAID at this time Continue home morphine Lidocaine patches Cards recs noted. Metoprolol increased Patient reviewed with Advanced Practitioner Agree with Advanced Practitioner's evaluation, findings and plans and take full responsibility Subjective Pt does not feel well this morning, has c/o shortness of breath with minimal exertion, complaints of chest pain left francesco chest. He does have pain with palpation in the shoulder and underarm which is reproducible. Taking morning meds at bedside. No abdominal complaints, no fever, chills, sweats. Pt feels abdomen is tight, lower legs edematous with fluid. He has not eaten breakfast yet in case cards would want stress test today. Pt would be unable to walk on a treadmill. Discussion held regarding diuresis, kidney function at bedside again this afternoon. Pt is agreeable to home health services, CM to assist with dc planning. Encouraged resistance band for some exercise at home versus walking all the time. Repeating EKG and troponin for completeness. Negative findings. Assume this is mostly musculoskeletal at this time. Physical Exam Physical Exam: General: awake, alert, no apparent distress, obese white male Head: Normocephalic, atraumatic ENT: PERRL, EOMI, no pharyngeal exudate, mucous membranes moist Chest: Clear to auscultation, on room air, no adventitious breath sounds Cardiac: Regular rate and rhythm, no murmur, no JVD, normal peripheral pulses, good capillary refill Abdominal: NABS x 4 quadrants, firm and distended, nontender to palpation, no rebound or guarding Extremities: Pain in left clavicular reproducible with palpation,+1 peripheral edema up to knees bilaterally, no erythema, calfs nontender to palpation Psych: Anxious mood and affect Neuro: AAO x 3, strength intact bilaterally and rated 5/5, no motor deficits, speech is clear, no peripheral sensory deficits Results & Data Results & Data Vital Signs (Past 12 Hours) Vital Signs Temp Pulse Pulse Resp BP BP Pulse Ox 09/21/23 08:03 36.8 C 86 18 169/87 H 96 09/21/23 07:08 77 09/21/23 03:46 36.8 C 83 18 159/73 H 97 09/21/23 02:24 79 14 91 09/20/23 23:31 36.8 C 94 H 18 152/78 H 94 09/20/23 22:01 88 09/20/23 21:08 91 H 22 91 09/20/23 20:35 O2 Del Method O2 Flow Rate 09/21/23 08:03 Room Air 09/21/23 07:08 09/21/23 03:46 Room Air, BiPAP 09/21/23 02:24 2 09/20/23 23:31 Room Air, BiPAP 09/20/23 22:01 09/20/23 21:08 2 09/20/23 20:35 Room Air Laboratory Results 09/21/23 09/21/23 09/21/23 12:07 09:38 08:02 WBC RBC Hgb Hct MCV MCH MCHC RDW Std Deviation RDW Coeff of Ben Plt Count MPV Immature Gran % (Auto) Neut % (Auto) Lymph % (Auto) [place] % (Auto) Eos % (Auto) Baso % (Auto) Neut # (Auto) Lymph # (Auto) [place] # (Auto) Eos # (Auto) Baso # (Auto) Immature Gran # (Auto) PT INR APTT PTT Ratio Sodium Potassium Chloride Carbon Dioxide Anion Gap BUN Creatinine Est Cr Clr Drug Dosing Est GFR ( Amer) Est GFR (Non-Af Amer) BUN/Creatinine Ratio Glucose POC Glucose 126 H 212 H Estimat Average Glucose Hemoglobin A1c Calcium Phosphorus Magnesium Iron TIBC Unsaturated IBC Transferrin % Sat Ferritin Troponin I High Sens B-Natriuretic Peptide Lipase Vitamin B12 Folate Urine Color Yellow Urine Appearance Clear Urine pH 5.5 Ur Specific [place] 1.029 Urine Protein 4+ H Urine Glucose (UA) 1+ H Urine Ketones Trace H Urine Blood Trace H Urine Nitrite Negative Urine Bilirubin Negative Urine Urobilinogen Negative Ur Leukocyte Esterase Negative Urine WBC (Auto) 0-5 Urine RBC (Auto) 0-2 U Hyaline Cast (Auto) 11-20 H U Epithel Cells (Auto) 0-2 Urine Bacteria (Auto) None Seen Hyaline Casts Present A Granular Casts 09/21/23 09/21/23 09/21/23 05:27 04:05 00:05 WBC 9.09 RBC 4.77 Hgb 11.6 L Hct 37.8 L MCV 79.2 L MCH 24.3 L MCHC 30.7 L RDW Std Deviation 48.3 H RDW Coeff of Ben 16.9 H Plt Count 231 MPV 9.0 L Immature Gran % (Auto) 0.3 Neut % (Auto) 66.1 Lymph % (Auto) 16.7 [place] % (Auto) 14.5 Eos % (Auto) 2.0 Baso % (Auto) 0.4 Neut # (Auto) 6.00 Lymph # (Auto) 1.52 [place] # (Auto) 1.32 H Eos # (Auto) 0.18 Baso # (Auto) 0.04 Immature Gran # (Auto) 0.03 PT INR APTT PTT Ratio Sodium 136 Potassium 4.5 Chloride 100 Carbon Dioxide 31 Anion Gap 5 BUN 24 H Creatinine 1.60 H D Est Cr Clr Drug Dosing 62.0 Est GFR ( Amer) 53.5 Est GFR (Non-Af Amer) 46.1 BUN/Creatinine Ratio 15.0 Glucose 241 H POC Glucose 183 H 197 H Estimat Average Glucose 171 Hemoglobin A1c 7.6 H Calcium 8.6 Phosphorus 4.3 Magnesium 2.1 Iron TIBC Unsaturated IBC Transferrin % Sat Ferritin Troponin I High Sens 13.8 B-Natriuretic Peptide Lipase Vitamin B12 Folate Urine Color Urine Appearance Urine pH Ur Specific [place] Urine Protein Urine Glucose (UA) Urine Ketones Urine Blood Urine Nitrite Urine Bilirubin Urine Urobilinogen Ur Leukocyte Esterase Urine WBC (Auto) Urine RBC (Auto) U Hyaline Cast (Auto) U Epithel Cells (Auto) Urine Bacteria (Auto) Hyaline Casts Granular Casts 09/20/23 09/20/23 09/20/23 21:12 17:34 16:43 WBC RBC Hgb Hct MCV MCH MCHC RDW Std Deviation RDW Coeff of Ben Plt Count MPV Immature Gran % (Auto) Neut % (Auto) Lymph % (Auto) [place] % (Auto) Eos % (Auto) Baso % (Auto) Neut # (Auto) Lymph # (Auto) [place] # (Auto) Eos # (Auto) Baso # (Auto) Immature Gran # (Auto) PT INR APTT PTT Ratio Sodium Potassium Chloride Carbon Dioxide Anion Gap BUN Creatinine Est Cr Clr Drug Dosing Est GFR ( Amer) Est GFR (Non-Af Amer) BUN/Creatinine Ratio Glucose POC Glucose 290 H 138 H Estimat Average Glucose Hemoglobin A1c Calcium Phosphorus Magnesium Iron TIBC Unsaturated IBC Transferrin % Sat Ferritin Troponin I High Sens B-Natriuretic Peptide Lipase Vitamin B12 Folate Urine Color Yellow Urine Appearance Clear Urine pH 5.5 Ur Specific [place] 1.017 Urine Protein 4+ H Urine Glucose (UA) Negative Urine Ketones Trace H Urine Blood Trace H Urine Nitrite Negative Urine Bilirubin Negative Urine Urobilinogen Negative Ur Leukocyte Esterase Negative Urine WBC (Auto) 0-5 Urine RBC (Auto) 0-2 U Hyaline Cast (Auto) >20 H U Epithel Cells (Auto) 0-2 Urine Bacteria (Auto) None Seen Hyaline Casts Granular Casts Present A 09/20/23 13:23 WBC 16.21 H RBC 5.75 Hgb 13.9 L Hct 45.8 MCV 79.7 L MCH 24.2 L MCHC 30.3 L RDW Std Deviation 48.8 H RDW Coeff of Ben 17.1 H Plt Count 311 MPV 8.8 L Immature Gran % (Auto) 0.4 Neut % (Auto) 77.7 Lymph % (Auto) 10.3 [place] % (Auto) 10.7 Eos % (Auto) 0.7 Baso % (Auto) 0.2 Neut # (Auto) 12.59 H Lymph # (Auto) 1.67 [place] # (Auto) 1.73 H Eos # (Auto) 0.11 Baso # (Auto) 0.04 Immature Gran # (Auto) 0.07 PT 9.8 INR 0.9 APTT 26 PTT Ratio 1.0 Sodium 134 L Potassium 5.0 Chloride 101 Carbon Dioxide 29 Anion Gap 4 BUN 16 Creatinine 1.27 Est Cr Clr Drug Dosing 78.1 Est GFR ( Amer) 70.7 Est GFR (Non-Af Amer) 61.0 BUN/Creatinine Ratio 12.6 Glucose 178 H POC Glucose Estimat Average Glucose Hemoglobin A1c Calcium 9.4 Phosphorus Magnesium Iron 46 TIBC 447 Unsaturated IBC 401 H Transferrin % Sat 10 L Ferritin 15.9 Troponin I High Sens 12.5 B-Natriuretic Peptide 15 Lipase 12 Vitamin B12 243 Folate 7.39 Urine Color Urine Appearance Urine pH Ur Specific [place] Urine Protein Urine Glucose (UA) Urine Ketones Urine Blood Urine Nitrite Urine Bilirubin Urine Urobilinogen Ur Leukocyte Esterase Urine WBC (Auto) Urine RBC (Auto) U Hyaline Cast (Auto) U Epithel Cells (Auto) Urine Bacteria (Auto) Hyaline Casts Granular Casts (2) Hypertension Hypertension type: unspecified Qualified Code(s): I10 - Essential (primary) hypertension (5) Left shoulder pain Chronicity: acute Qualified Code(s): M25.512 - Pain in left shoulder (6) COPD (chronic obstructive pulmonary disease) COPD type: unspecified COPD Qualified Code(s): J44.9 - Chronic obstructive pulmonary disease, unspecified (7) Asthma Asthma complication type: uncomplicated Asthma persistence: unspecified Asthma severity: unspecified severity Qualified Code(s): J45.909 - Unspecified asthma, uncomplicated (12) GERD (gastroesophageal reflux disease) Esophagitis bleeding: without hemorrhage Esophagitis presence: with esophagitis Qualified Code(s): K21.00 - Gastro-esophageal reflux disease with esophagitis, without bleeding
[2023-09-21] MEDS: ALBUMIN 25% 25 GM/100 ML VIAL IV ONE (08:31)
[2023-09-21] MEDS: NICOTINE 14 MG/24 HR PATCH TD SCH (08:32)
[2023-09-21] MEDS: POLYETHYLENE (MIRALAX) 17 GM PACK PO SCH (08:32)
[2023-09-21] MEDS: ROSUVASTATIN CALCIUM 5 MG TAB PO SCH (08:33)
[2023-09-21] MEDS: CLOPIDOGREL BISULFATE 75 MG TAB PO SCH (08:33)
[2023-09-21] MEDS: LINACLOTIDE 145 MCG CAPSULE PO SCH (08:33)
[2023-09-21] MEDS: MONTELUKAST SODIUM 10 MG TABLET PO SCH (08:33)
[2023-09-21] MEDS: METOPROLOL SUCC 25MG EXT REL TAB PO SCH (08:34)
[2023-09-21 08:51] LABS: Troponin I High Sensitivity 13.8 pg/ml (0-20)
[2023-09-21] MEDS ORDERED: LOSARTAN POTASSIUM 25 MG TAB PO SCH (09:00)
[2023-09-21] MEDS ORDERED: FUROSEMIDE 40 MG TAB PO SCH (09:00)
[2023-09-21] MEDS ORDERED: LANTUS PER UNIT CHARGE SQ ONE (09:00)
[2023-09-21] MEDS: NITROGLYCERIN 2% OINTMENT 30GM TUBE EXT SCH (09:15)
[2023-09-21] MEDS: LANTUS PER UNIT CHARGE SC SCH ×2 (09:47→20:58)
[2023-09-21 10:29] LABS: Appearance Urine Clear (Clear); Bacteria Urine Automated None Seen (None Seen); Bilirubin Urine Negative (Negative); Blood Urine Trace (Negative); Color Urine Yellow; Epithelial Cell Urine Auto 0-2 /hpf (0-2); Glucose Urine UA 1+ (Negative); Hyaline Casts Urine Present /lpf (None Presnt); Ketones Urine Trace (Negative); Leukocyte Esterase Urine Negative (Negative); Nitrite Urine Negative (Negative); Protein Urine 4+ (Negative); RBC Urine Automated 0-2 /hpf (0-2); Specific Gravity Urine 1.029 (1.000-1.030); Urobilinogen Urine Negative (Negative); WBC Urine Automated 0-5 /hpf (0-5); pH Urine 5.5 (4.5-7.5)
--- NOTE | 2023-09-21 10:32 | Cardiology Consultation ---
Date of Consultation September 21, 2023 Assessment & Plan (1) Atypical chest pain: (2) Acute on chronic diastolic (congestive) heart failure: (3) ASCVD (arteriosclerotic cardiovascular disease): (4) S/P CABG x 1: (5) Tobacco abuse: Plan Atypical chest pain. Discomfort is definitely reproducible with palpation of the medial aspect of the left clavicle. EKG without acute change. High- sensitivity troponin negative x 2. No further cardiac evaluation recommended in this regard. Discontinue nitro paste (headache, lightheaded, nausea). ASCVD. See above. Continue appropriate medical management - beta-judit, ASA, clopidogrel, and statin. Losartan currently on hold due to creatinine. Resume Losartan when able. Conduction system disease, bifascicular heart block. Increase metoprolol succinate dosing cautiously for heart rate and blood pressure control. Diastolic congestive heart failure. Volume status: Hypervolemic. Recommend IV furosemide today. Future considerations: Empagliflozin (Jardiance) Hypertension. Increase metoprolol as above. IV furosemide as above. Resume losartan when able. Control pain. Dyslipidemia. LDL cholesterol 60 mg/dL on 04/03/2023. Continue rosuvastatin Iron deficiency anemia. Recommend treatment, evaluation of underlying etiology. Tobacco abuse. Cessation advised. I spent a total of 65 minutes on the date of service in preparation, delivery, and documentation of the care provided to this patient excluding any time spent in the performance of separately billed services. This visit was a split-shared visit with the substantive portion of the medical decision making performed by the supervising blast furnace keeper/billing provider. Supervising Physician Co-Signing Physician Notes Attending attestation: Case reviewed with the advanced practitioner. I have personally performed a history and physical examination on the patient. I have reviewed the advanced practitioner's documentation on the date of service referenced in note, and I agree with, and take responsibility for the plan of care. Subjective: Patient describes left shoulder, left chest wall pain. Reproducible with palpation. Exam: Reproducible chest wall pain, left shoulder pain Data: EKG without ischemic changes Echocardiogram with stable findings of distal LAD territory wall motion abnormality, unchanged compared to 2022, preserved LVEF High-sensitivity troponin negative on presentation and again on repeat this morning Impression/ Plan: Symptoms not consistent with angina. Counseled patient that he is not a good candidate for nonsteroidal anti-inflammatory medication such as ongoing Toradol use or ibuprofen/Advil. He is already on significant analgesics due to his chronic back pain at home. Recommend trial of lidocaine topical patches, he can apply 1 on his left chest wall, and 1 on the left shoulder. He actually has these at home that he uses for his back pain and he had tried this prior to coming to the hospital and felt that it helped his discomfort. If patient feeling better after application of lidocaine topical patches, consider discharge this evening. Case reviewed with Dr Medeiros for the purpose of coordination of care. I spent a total of 20 minutes coordinating, documenting, and providing care for this patient excluding time spent in the performance of separately billed services or time spent by another provider. Joseph Garzon, History of Present Illness Reason for Consultation: Chest pain Requesting Physician: [facility] Attending Physician: [facility], Dr. Medeiros History of Present Illness Mr. Nabil Cole is a 62-year-old male with complex past medical history detailed below. 3 days ago the patient was furniture shopping with his . He describes being in and out, up and down of lift chairs, trying to find a right 1. 1, unfortunately became stuck and his had to pull him out of the reclined position, pulling on his left upper extremity. After he returned home he describes picking up and carrying a full propane tank approximately 15 feet from the car to the garage. Shortly thereafter he began experiencing left shoulder and left upper outer chest discomfort. Due to his cardiac history he became concerned and presented to the emergency room at [facility] for further evaluation and treatment. The discomfort has been present to some extent over the last 2 to 3 days, constant though waxing and waning, definitely reproducible with palpation. EKG on presentation showed no acute ST segment change. High-sensitivity troponin negative x 2. Chest x-ray clear. Resting echocardiography pending. Telemetry revealing sinus throughout, currently with heart rates in the 90s. Patient notes chronic back pain, diffuse pain, fatigue, intermittent lightheadedness/dizziness, constipation (last BM was 2-3 days ago). Past Medical and Surgical History: 1. Chronic back pain, failed back syndrome, narcotic dependent, high dose. Pain medications managed by [facility]. 2. Low HDL cholesterol - dyslipidemia with poor statin tolerance. 3. Chronic obstructive sleep apnea with nocturnal CPAP and O2 supplementation. 4. Secondary polycythemia with routine phlebotomy. 5. Coronary artery disease a. Status post drug-eluting stent proximal LAD February 17, 2022. b. Acute coronary syndrome, October 01, 2022, NSTEMI, restenosis of the LAD, statu spost PCI with a drug-eluting stent though with little change in patient's symptom pattern c. Patient hospitalized last initially at [facility] then [facility] November 09, 2022 to December 09, 2022 following NSTEMI, undergoing off pump coronary artery bypass grafting x1 with an isolated left internal mammary artery to the LAD on November 14, [address] Bob. Postoperative course complicated by pain management issues as well as ? paroxysmal atrial fibrillation on telemetry leading to transient use of amiodarone 6. Patient with past poor tolerance to Brilinta. 7. Conduction system disease with bifascicular block on EKG, right bundle-branch block, left anterior fascicular block. 8. Chronic diastolic heart failure 9. Diabetes mellitus, insulin requiring, with polyneuropathy. 10. Longstanding tobacco use 11. COPD/emphysema 12. Moderate persistent asthma 13. Respiratory bronchiolitis interstitial lung disease 14. Hypertension 15. History of pancreatitis. 16. BPH 17. Impotence 18. GERD, prior endoscopy with reflux esophagitis, gastritis 19. Generalized anxiety disorder 20. Depression 21. Multiple prior back surgeries 22. Colonoscopy with polypectomy 23. Cholecystectomy 24. Left shoulder surgery 25. Right elbow surgery 26. Remove uvula for sleep apnea 27. Status post appendectomy 28. Tonsillectomy Family History: Mother with COPD. Father with lung cancer. Social History: Smoker, 1 pack/day x 42 years. No smokeless tobacco. No significant alcohol intake. 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 Allergies Allergy/AdvReac Type Severity Reaction Status Date / Time clarithromycin Allergy Severe DAMAGED Verified 09/20/23 18:40 LIVER PER PT-REQUIRED HOSPITALIZATION latex Allergy Intermediate skin Verified 09/20/23 18:40 irritation/rash ticagrelor [From Brilinta] AdvReac Severe sob Verified 09/20/23 18:40 adhesive AdvReac Mild SKIN Verified 09/20/23 18:40 RASH-WITH SOME TAPES dulaglutide AdvReac Unknown hx Verified 09/20/23 18:40 pancreatitis exenatide AdvReac Unknown hx Verified 09/20/23 18:40 pancreatitis liraglutide AdvReac Unknown hx Verified 09/20/23 18:40 pancreatitis semaglutide AdvReac Unknown hx Verified 09/20/23 18:40 pancreatitis Home Medications Medication Instructions Recorded Confirmed Type albuterol sulfate 90 mcg/actuation 2 puff inhalation Q6H PRN Wheezing 06/26/18 09/20/23 History aerosol inhaler Oxygen Home #1 ea 04/30/19 09/20/23 History aspirin 81 mg tablet,delayed 81 mg PO HS 03/12/20 09/20/23 History release blood-glucose meter,continuous 02/03/21 09/20/23 History (Dexcom G6 Lavender Farm Worker) blood-glucose transmitter (Dexcom 02/03/21 09/20/23 History G6 Transmitter device) cetirizine 10 mg capsule (Zyrtec) 10 mg PO DAILY PRN Allergy Symptoms 03/05/21 09/20/23 History hydroxyzine pamoate 25 mg capsule 25 mg PO Q8H PRN anxiety 5 days 06/16/21 09/20/23 Rx (Vistaril) #15 caps morphine 100 mg tablet,extended 100 mg PO TID@08,14,20 10/12/21 09/20/23 History release clopidogrel 75 mg tablet (Plavix) 75 mg PO QAM 05/16/22 09/20/23 History budesonide 0.5 mg/2 mL suspension 0.5 mg inhalation BID PRN 06/13/22 09/20/23 History for nebulization Shortness Of Breath Or Wheezing linaclotide 145 mcg capsule 145 mcg PO DAILY PRN Constipation 08/01/22 09/20/23 History (Linzess) morphine 30 mg tablet,extended 30 mg PO Q8H PRN breakthrough pain 08/01/22 09/20/23 History release 6-10 blood sugar diagnostic #900 ea 08/19/22 09/20/23 Rx morphine 15 mg immediate release 15 mg PO Q6 PRN Breakthrough Pain 09/13/22 09/20/23 History tablet 1-6 rosuvastatin 5 mg tablet (Crestor) 5 mg PO QAM 11/08/22 09/20/23 History montelukast 10 mg tablet 10 mg PO DAILY pt request 12/22/22 09/20/23 History pantoprazole 40 mg tablet,delayed 40 mg PO .QOD Heartburn 12/22/22 09/20/23 History release blood sugar diagnostic (OneTouch #300 ea 12/29/22 09/20/23 Rx Verio test strips) blood-glucose meter (Accu-Chek #1 ea 12/29/22 09/20/23 Rx Guide Glucose Meter) blood-glucose meter (OneTouch #1 ea 12/29/22 09/20/23 Rx Ultra2 Meter) blood-glucose meter (OneTouch 12/29/22 09/20/23 History Verio Flex Meter) blood sugar diagnostic (OneTouch #1,500 ea 01/04/23 09/20/23 Rx Ultra Test strips) Dexcom G6 Sensor (blood-glucose #3 ea 01/26/23 09/20/23 Rx sensor) furosemide 20 mg tablet 40 mg PO DAILY 02/06/23 09/20/23 History losartan 25 mg tablet 25 mg PO DAILY #90 tabs 03/24/23 09/20/23 Rx Accu-Chek Guide test strips (blood #400 ea 04/19/23 09/20/23 Rx sugar diagnostic) testosterone 2 pump topical HS #225 grams 04/21/23 09/20/23 Rx insulin aspart U-100 100 unit/mL See Rx Instructions subcut WM 90 07/13/23 09/20/23 Rx (3 mL) subcutaneous pen (Novolog days #120 mL FlexPen U-100 Insulin aspart) cholecalciferol (vitamin D3) 25 4,000 unit PO HS 07/18/23 09/20/23 History mcg (1,000 unit) capsule (Vitamin D3) metoprolol succinate 25 mg 25 mg PO DAILY 07/18/23 09/20/23 History tablet,extended release 24 hr oxybutynin chloride 5 mg 5 mg PO DAILY #30 tabs 07/19/23 09/20/23 Rx tablet,extended release 24 hr clindamycin phosphate 1 % lotion 1 applic topical DAILY PRN flare up 09/20/23 09/20/23 History insulin glargine U-300 conc 300 147 unit subcut QAM 09/20/23 09/20/23 History unit/mL (1.5 mL) subcutaneous pen (Toujeo SoloStar U-300 Insulin) mupirocin 2 % topical ointment 1 applic topical DAILY PRN flare up 09/20/23 09/20/23 History nicotine 21 mg/24 hr daily 1 patch transdermal DAILY 09/20/23 09/20/23 History transdermal patch Patient History Medical History Myocardial Infarction Hypervolemia Hypertensive urgency Chest pain Bifascicular block Medical cannabis use Transient ischemic attack (TIA) unsure of date - treated at [facility] -- 5+ years ago. On home oxygen therapy 3 lpm via n/c Migraines Diverticular disease SOBOE (shortness of breath on exertion) Sleep apnea CPAP WITH 4 L/MIN HS. S/P UPPP. History of SCC (squamous cell carcinoma) of skin History of basal cell carcinoma Obesity Post traumatic stress disorder Degenerative disc disease Chronic back pain History of skin cancer S/P EXCISION OF SCALP History of acute pancreatitis RELATED TO A STONE OBSTRUCTION, 10/2017 Irritable bowel syndrome (IBS) GERD (gastroesophageal reflux disease) Diabetes mellitus, type 2 IDDM Tachycardia Surgical History History of coronary artery bypass graft History of heart artery stent x1 stent (02/2022) History of cardiac cath 02/2022 with 1 stent (LAD) Dr Leach at [facility]. S/P cholecystectomy 07/02/1819 Grade 2 view, MAC 3, ETT 8. History of tonsillectomy History of uvulopalatopharyngoplasty FOR TREATMENT OF AR History of surgery RT ELBOW History of repair of rotator cuff LEFT SHOULDER History of colonoscopy History of ERCP 11/2017 [facility] History of esophagogastroduodenoscopy (EGD) History of cardiac cath 2017-NO STENTS Fusion of spine MULTIPLE LUMBARX2 History of appendectomy History of back surgery total of 6 back surgeries. 2 failed surgeries Family History Other COPD (chronic obstructive pulmonary disease) Cancer Diabetes Heart disease Hypertension Social History Smoking Status: Current every day smoker Tobacco Type: Cigarettes packs per day: 1; Cigarettes Per Day: 20; Second Hand Exposure: Yes; Do You Dip or Chew Tobacco: No; Hx Alcohol Use: No Hx Substance Use: Yes Last Used Substance: Just Prior to Arrival Last Used Substance Other:: medical marijuana Substance Use Type Other:: MEDICAL MARIJUANA Preferred Language: Mozambican Communication Ability: Effective Visual Impairment: No Limitations Manager Software Development Required: No Beliefs That Will Affect Care: None marital status: Current Living Situation: Spouse Current Living Situation Comment: [place] current occupation: On disability Feels Safe at Home: Yes Safety Concerns: Feels Safe At This Time Assistive Devices: Cane, Oxygen - Continuous and Walker Review of Systems Review of Systems: Complete Review of Systems is as stated above, negative, or noncontributory. Physical Exam Physical Exam: General: A&Ox3. NAD. HENT: Normocephalic. Atraumatic. Eyes: PER. Conjunctiva pink, sclera clear. Neck: No carotid bruits. No JVD. No HJR. Chest: Reproducible pain, medial aspect of the left clavicle. Heart: RRR. No murmur appreciated. Lungs: Clear to auscultation. Abdomen: +BS. Firm. Distended. No organomegaly. Extremities: 1+ hard indurated edema. No clubbing. No cyanosis. Limited neurological examination is without focal deficits. Pulses: radial=2/4, posterior tibial=1/4. Results & Data Vital Signs (Past 12 Hours) Vital Signs Temp Pulse Pulse Resp BP BP Pulse Ox 09/21/23 08:03 36.8 C 86 18 169/87 H 96 09/21/23 07:08 77 09/21/23 03:46 36.8 C 83 18 159/73 H 97 09/21/23 02:24 79 14 91 09/20/23 23:31 36.8 C 94 H 18 152/78 H 94 O2 Del Method O2 Flow Rate 09/21/23 08:03 Room Air 09/21/23 07:08 09/21/23 03:46 Room Air, BiPAP 09/21/23 02:24 2 09/20/23 23:31 Room Air, BiPAP Laboratory Results Cardiac Enzymes 09/20/23 09/21/23 Range/Units 13:23 05:27 Troponin I High Sens 12.5 13.8 (0-20) pg/ml B-Natriuretic Peptide 15 (0-100) pg/ml Coagulation 09/20/23 Range/Units 13:23 PT 9.8 (9.0-12.0) Seconds APTT 26 (21-31) Seconds B-Natriuretic Peptide 15 (0-100) pg/ml CBC 09/20/23 09/21/23 Range/Units 13:23 05:27 WBC 16.21 H 9.09 (4.8-10.8) K/ul RBC 5.75 4.77 (4.70-6.10) M/uL Hgb 13.9 L 11.6 L (14.0-18.0) g/dl Hct 45.8 37.8 L (42.0-52.0) % Plt Count 311 231 (130-400) K/uL Neut # (Auto) 12.59 H 6.00 (1.40-6.50) K/uL Lymph # (Auto) 1.67 1.52 (1.20-3.40) K/uL Evans # (Auto) 1.73 H 1.32 H (0.11-0.59) K/uL Eos # (Auto) 0.11 0.18 (0.00-0.50) K/uL Baso # (Auto) 0.04 0.04 (0.00-0.20) K/uL Comprehensive Metabolic Panel 09/20/23 09/21/23 Range/Units 13:23 05:27 Sodium 134 L 136 (136-145) mmol/L Potassium 5.0 4.5 (3.5-5.1) mmol/L Chloride 101 100 (98-107) mmol/L Carbon Dioxide 29 31 (21-32) mmol/L BUN 16 24 H (6-23) mg/dl Creatinine 1.27 1.60 H D (0.6-1.4) mg/dl Glucose 178 H 241 H (70-99(Fasting)) mg/dl Calcium 9.4 8.6 (8.6-10.3) mg/dl Intake and Output 09/20/23 09/21/23 09/21/23 22:59 06:59 14:59 Intake Total 460 / 460 100 / 100 Balance 460 / 460 100 / 100 Intake: IV 100 / 100 100 / 100 Albumin 25% 25 gm In 100 ml @ 100 / 100 100 / 100 50 mls/hr IV ONE ONE Rx#: [id number] Oral 360 / 360
--- NOTE | 2023-09-21 13:02 | Pharmacy Report ---
Pharmacy Glycemic Short Note 2 - Date of Service September 21, 2023 - Glycemic Short BSG Results (Last 24 hours): 09/20/23 09/20/23 09/20/23 13:23 17:34 21:12 Glucose 178 H POC Glucose 138 H 290 H 09/21/23 09/21/23 09/21/23 00:05 04:05 05:27 Glucose 241 H POC Glucose 197 H 183 H 09/21/23 09/21/23 08:02 12:07 Glucose POC Glucose 212 H 126 H OUTPATIENT ANTIDIABETIC REGIMEN: * Toujeo 147 units SC AM * Novolog SSI AC (up to 130 units/day) HbA1c: 7.6% (09/21/23) ASSESSMENT: 09/21/23: * Blood sugars improved overnight, now 126 mg/dL at lunchtime * Patient originally NPO pending cardiology evaluation, advanced to T2DM at lunch * Will utilize basal scale today 09/20/23: * 62 yo M admitted on 09/20/23 secondary to chest pain. Pharmacy has been consulted to assist with inpatient glycemic management. Patient is a Type 2 diabetic as an outpatient. Please refer to outpatient regimen and most recent HbA1c above. * Patient is ordered a T2DM diet. Did take home basal dose prior to admission. * Upon arrival to ED, patient's BSG was 178 mg/dL. Once admitted BSG was 138 mg/dL. * Will hold off on any basal tonight. Dayshift pharmacist to reevaluate basal needs in the morning, will likely be significantly lower than home dose. Novolog will start ACHS based on weight/stress of 3. Will add overnight checks for first night. PLAN FOR INPATIENT GLYCEMIC CONTROL: * Basal insulin * Lantus 30 units SC x 1 this morning * Lantus 0-10-20 units SC HS * Reassess in AM * Bolus insulin * NovoLog per scale ACHS or Q6hrs while NPO * Goal Range: Low 110 mg/dL - High 140 mg/dL * Correction Factor: 15 mg/dL/unit * Nutritional / Prandial insulin per carb ratio of 1 unit per 4 grams CHO consumed
[2023-09-21 16:28] LABS: BUN Creatinine Ratio 16.7 (10-20); Calcium 9.1 mg/dl (8.6-10.3); Creatinine Clr Calc Pharmacy 66.1 ml/min; Est GFR (African American) 57.8 ml/min; Est GFR (Non-African American) 49.9 ml/min
[2023-09-21] MEDS: LIDOCAINE 5% 1 PATCH TD STA (16:56)
[2023-09-21] MEDS: traMADol HCL 50 MG TABLET ONE (21:19)
[2023-09-21] MEDS: hydrALAZINE HCL 20 MG/ML VIAL IV PRN (23:57)
[2023-09-22 06:53] LABS: BUN Creatinine Ratio 21.9 (10-20); Calcium 8.6 mg/dl (8.6-10.3); Est GFR (African American) 80.6 ml/min; Est GFR (Non-African American) 69.5 ml/min; Potassium 4.6 mmol/L (3.5-5.1)
[2023-09-22] MEDS: PANTOprazole 40 MG TAB PO SCH (08:17)
[2023-09-22] MEDS: METOPROLOL SUCC 25MG EXT REL TAB PO SCH (08:19)
[2023-09-22] MEDS: LANTUS PER UNIT CHARGE SC SCH (08:45)
--- NOTE | 2023-09-22 13:08 | Discharge Summary ---
Date of Service September 22, 2023 Admission HPI Per Admitting Provider Nabil Cole is a 62y/o M with PMHx of DM type II, mild nonproliferative diabetic retinopathy w/o macular edema, diabetic polyneuropathy, CKD stage II, dyslipidemia, COPD, AR [on CPAP], pulmonary emphysema, asthma, chronic diastolic congestive HF, HTN, bifascicular BBB, CAD s/p CABG [2022], GERD w/ esophagitis, BPH, osteoarthritis, chronic pain syndrome, chronic back pain, polycythemia, depression/WES, tobacco use disorder, hx of NSTEMIs [09/2022, 10/2022] and other problems listed below who presented to the ED for evaluation of left-sided chest pain. Of note, patient has been hospitalized many times in the past for cardiac- related issues. He is s/p PCI w/ BYRON for tx of NSTEMI in 09/2022 here @ [facility]. Was once again admitted in 10/2022 for repeat NSTEMI and ultimately had to be transferred [place] [facility] [place]. Extensive cardiac hx including chronic diastolic congestive HF, HTN, bifascicular BBB and CAD as per above. History obtained mostly from patient, and associated ED/previous hospitalizati on/PCP/specialist records. Patient seen at bedside with Dr. Cohen. Patient is accompanied in the room by his , who provides additional history. Patient reports left-sided chest and shoulder pain that started today around 3PM. He states that he lifted a propane tank and was furniture shopping with his earlier today (lots of sitting/standing motions), which may have subsequently caused the symptoms he is presenting with currently. Patient states the pain feels more muscular rather than cardiac-related at this time, but was concerned that he may be having an acute cardiac event given his extensive cardiovascular history. Pain is currently isolated to the left shoulder/upper chest region. Previously the pain was radiating down his left arm, but that has since subsided. He states that the pain is in the "deep muscular tissue" of the left shoulder. Patient does report difficulty with ambulation at baseline, he is currently in the process of obtaining an electric wheelchair. Patient states he is "losing butt muscles and muscles in the front." Ultimately can no longer walk without pain. He has an extensive history of back operations and chronic back pain. Reports his "spine is very sensitive." Patient has participated in physical therapy and seen pain management in the past w/o any relief of his back pain or muscle weakness. He is currently on chronic opioid therapy, and uses MiraLAX daily. He reports intermittent constipation at baseline with associated abdominal distention. Patient is currently feeling distended, but reports he is hungry and wants to eat. He denies any recent nausea/vomiting, and there is no history of dysphagia concerns. He has been on a low-sodium diet at home since his NSTEMI last year, and states he does fluid restrict himself at home to avoid becoming fluid overloaded. However, reports that he does occasionally indulge in some salty snacks at bedtime. Patient report that he is "swollen all over," which has been going on for the past year since his NSTEMI. He has been taking his Lasix as prescribed at home w/o much difference in the severity of his swelling. He does have some chronic numbness in both arms radiating down to his fingertips, which is unchanged from baseline. He does sleep lying flat, no concerns of orthopnea at this time. Uses CPAP at baseline, as per above. Follows with [facility]. Patient reports that he has oxygen supplementation available at home, which he uses intermittently. Patient reports that when he uses his oxygen it is typically ~3- 4L. He reports some SOB with increasing exertion; has had episodes in the past where he becomes lightheaded/dizzy and subsequently has to sit down to initiate supplemental oxygen therapy. During those episodes, he also endorses some changes in his vision which he describes as "purple rings." However, these visual changes also resolve upon sitting and application of supplemental oxygen therapy. He has been having some pain with deep inspiration as well. He does currently endorse neck pain currently with any sort of movement. Denies any recent trauma or falls. He did receive Toradol and nitroglycerin in the ED. Patient reports improvement of his pain following administration of the Toradol. Reports nitroglycerin gave him "head santiago" and is currently endorsing a minor headache. Patient does currently smoke about 1 pack of cigarettes per day, had a short cessation of smoking for approximately 4 months following his NSTEMI last year but then restarted. Patient reports that he started smoking around age 16- 17. He has a nicotine patch on now, and is requesting continuation of nicotine patch application while hospitalized. He does have a history of secondary polycythemia, for which he reports seeing phlebotomy every 2-3 weeks for appropriate management therapy. Admission Exam Per Admitting Provider GENERAL APPEARANCE: AxOx4, generally well-appearing male, no acute distress. HEENT: NC, AT. MMM. EOMI, clear conjunctiva, oropharynx clear. NECK: Supple without lymphadenopathy. No stiffness or restricted ROM. HEART: Normal rate and regular rhythm, normal S1/S1, no m/r/g LUNGS: CTAB, moving air well. No crackles or wheezes are heard. ABDOMEN: soft but protuberant abdomen, BS+, chronic LLQ tenderness BACK: No CVAT, no obvious deformity. EXTREMITIES: Without cyanosis, clubbing or edema. NEUROLOGICAL: Grossly nonfocal. Alert and oriented, moving all 4 extremities. CN not formally tested but appear grossly intact. Skin: Warm and dry without any rash. Principal Diagnosis Chest pain, musculoskeletal Discharge Exam General: awake, alert, no apparent distress, obese white male Head: Normocephalic, atraumatic ENT: PERRL, EOMI, no pharyngeal exudate, mucous membranes moist Chest: Clear to auscultation, on room air, no adventitious breath sounds Cardiac: Regular rate and rhythm, no murmur, no JVD, normal peripheral pulses, good capillary refill Abdominal: NABS x 4 quadrants, firm and distended, nontender to palpation, no rebound or guarding Extremities: Pain in left clavicular reproducible with palpation,+1 peripheral edema up to knees bilaterally, no erythema, calfs nontender to palpation Psych: Anxious mood and affect Neuro: AAO x 3, strength intact bilaterally and rated 5/5, no motor deficits, speech is clear, no peripheral sensory deficits Discharge Data Allergies Allergy/AdvReac Type Severity Reaction Status Date / Time clarithromycin Allergy Severe DAMAGED Verified 09/20/23 18:40 LIVER PER PT-REQUIRED HOSPITALIZATION latex Allergy Intermediate skin Verified 09/20/23 18:40 irritation/rash ticagrelor [From Brilinta] AdvReac Severe sob Verified 09/20/23 18:40 adhesive AdvReac Mild SKIN Verified 09/20/23 18:40 RASH-WITH SOME TAPES dulaglutide AdvReac Unknown hx Verified 09/20/23 18:40 pancreatitis exenatide AdvReac Unknown hx Verified 09/20/23 18:40 pancreatitis liraglutide AdvReac Unknown hx Verified 09/20/23 18:40 pancreatitis semaglutide AdvReac Unknown hx Verified 09/20/23 18:40 pancreatitis Consultations 09/20/23 14:43 ED Decision to Admit Stat 09/21/23 07:42 Consult Cardiology Routine Ordered Studies 09/20/23 16:21 CT cervical spine wo con Routine CT chest without contrast [CT chest diagnostic wo con] Routine Hospital Course (1) Left-sided chest pain: (2) Hypertension: (3) Dyslipidemia: Past hospitalizations: 09/2022 had PCI w/ BYRON for tx of NSTEMI @ [facility]. 10/2022 for repeat NSTEMI and ultimately had to be transferred to [facility] to undergo CABG procedure. - Recent echo October 2022 with EF 55-60%, grade I diastolic dysfunction, WMA and hypokinesis of apical and mid segments of the anterior wall reviewed, repeat pending - WBC is improved from 16 to 9 - Trop was 12.5, BNP 15 on admission, repeating one more troponin for completeness this morning-- NEG x 2 - EKG reviewed and is without acute findings - aspirin and clopidogrel for DAPT - BP has consistently been elevated with SBP 160s-170s, PRN 5mg IV hydralazine in situation where SBP>175 ---improved s/p lasix - Cards consulted- appreciate recs: metoprolol succinate increased to 37.5mg daily, - 09/20: lasix 20 mg IV and again this morning and albumin IV - losartan was held during admission due to Cr and resumed on discharge - K+ improved - Cont statin (4) Acute kidney injury superimposed on CKD: - Cr bumped to 1.6 likely due to diuresis, appears baseline is 1.2 - Cr improved to 1.1 today. ok to resume home losartan/lasix (5) Left shoulder pain: - Appears pain in chest is all related to musculoskeletal invovlement and is reproducible. - voltaren ordered - Heat and lidocaine added for comfort - PT/OT - no needs on dc (6) COPD (chronic obstructive pulmonary disease): (7) Asthma: (8) Obstructive sleep apnea: (9) Tobacco abuse: - 3 L O2 now weaned to RA - CPAP order placed, will continue CPAP HS - Will continue DOPER OPERATOR PRN albuterol inhaler, budesonide inhalation therapy, Singulair - 1 PPD,started smoking age 17. Cont nicotine patch - Chest x-ray negative for acute process - Smoking cessation (10) Type 2 diabetes mellitus with insulin therapy: - SSI regimen in place, did order for 100 units of insulin glargine to be given in AM. - Glycemic pharmacy consulted - A1C 7.4 (11) Polycythemia, secondary: - Chronic, stable, seeing phlebotomy every 2-3 weeks for appropriate management therapy. - Follows with [facility] according to [facility] records. - he is to undergo routine CBC w/diff testing [id number], phlebotomy if Hct>45. - consider heme/onc consult if Hct level increases >45 (12) GERD (gastroesophageal reflux disease): -Will continue DOPER OPERATOR PPI therapy while hospitalized. (13) Chronic pain syndrome: - Cont opioid therapy - PT/OT - Hx constipation: Miralax daily, PRN Linzess FEN/GI: Low sodium/HH/DM diet Dispo: Discharge home today A total of 35 minutes were spent with greater than 50% of that time face to face with the patient, personally reviewing all current laboratories, imaging studies, past medication reconciliation, outpatient chart review, and discussion with specialists to collaborate care for the patient with attending and discharge planning. Please see attending documentation for corrections and/or additions. Total Time Total Time Spent Total Time Spent (In Minutes): 35 min Discharge Plan Discharge Items Patient Disposition: Home - Home Health Services Reason For Visit: CHEST PAIN, OBSERVATION GIVEN EXTENSIVE CARDIAC HX Discharge Diagnosis: Chest pain found to be musculoskeletal Condition on Discharge: Good Goals: Improve pain and strengthening of lower extremities Activity: Resume your previous activity Lifting: Gradually increase as tolerated Bathing: No limitations Sexual Activity: When tolerated Exercise/Sports: Gradually increase as tolerated Non-emergency contact: Primary Care Provider Call non-emergency contact if: you have any medication questions, your pain is not controlled, your pain is worsening and your temperature is above 101 Follow-up/Referrals: Oswaldo Sampson MD [Primary Care Provider] - (Date & Time 09/29/2023 10:00 AM Provider Oswaldo Sampson MD [facility] ) Diet: Heart Healthy Fluids: 1500ml (6 cups) Addtl Attending Provider Instructions: You were admitted to [facility] due to chest pain concerned for acute coronary syndrome and diagnosed with musckuloskeletal chest pain During your stay here you were treated with supportive care, medications including metoprolol was increased per cardiology and your symptoms improved. Your shoulder pain was treated with lidocaine patch, PT/OT and improved. Imaging studies which were completed include CXR, EKG, and were normal. Medications: Continue taking you medications as prescribed Increase metoprolol succinate from 25 mg daily to 37.5 mg every morning Appointments: Follow up with PCP within 1 week, an appointment has been requested for you. Follow up with cardiology, please call to schedule an appointment Pending Studies at Discharge: No Stand-Alone Forms: My [facility] [employer], Smoking Cessation Medications and DC Order Prescriptions: New metoprolol succinate 25 mg Tablet Extended Release 24 Hr 37.5 mg PO DAILY 30 Days Qty: 45 0RF Continued clopidogrel [Plavix] 75 mg tablet 75 mg PO QAM (DME) blood sugar diagnostic Strip See Rx Instructions .ROUTE .MEDSUPPLY Qty: 900 3RF Rx Instructions: test 10 times QD. OneTouch Ultra (DME) OneTouch Verio test strips Strip See Rx Instructions .Route Qty: 300 2RF Rx Instructions: As directed eight per day to monitor blood glucose levels (DME) blood-glucose meter [OneTouch Ultra2 Meter] [facility] See Rx Instructions .Route Qty: 1 0RF Rx Instructions: As directed to monitor blood glucose (DME) blood-glucose meter [Accu-Chek Guide Glucose Meter] [facility] See Rx Instructions .Route Qty: 1 0RF Rx Instructions: As directed (DME) blood-glucose meter [OneTouch Verio Flex meter] [facility] See Rx Instructions .ROUTE .MEDSUPPLY Rx Instructions: Test blood sugars 8 times a day (DME) OneTouch Ultra Test Strip See Rx Instructions .Route Qty: 1500 3RF Rx Instructions: test 15 times daily (DME) Dexcom G6 Sensor Device See Rx Instructions .Route Qty: 3 0RF Rx Instructions: Change sensor every 10 days (DME) Accu-Chek Guide test strips Strip See Rx Instructions .Route Qty: 400 3RF Rx Instructions: As directed to test glucose 4 times a day testosterone 20.25 mg/1.25 gram (1.62 %) gel in metered-dose pump 2 pump topical HS Qty: 225 0RF Rx Instructions: apply 1 pump amount over max area of EACH upper arm and shoulder insulin aspart U-100 [Novolog FlexPen U-100 Insulin] 100 unit/mL (3 mL) insulin pen See Rx Instructions SQ WM 90 Days Qty: 120 3RF Rx Instructions: inject subcutaneously with meals; per sliding scale; TDD 130 units (DME) Oxygen Home Liters Per Minute See Rx Instructions .ROUTE .MEDSUPPLY Qty: 1 Rx Instructions: 4 LPM at night with CPAP. pt also wears O2 at home prn throughout the day. morphine 30 mg tablet extended release 30 mg PO Q8H PRN (Reason: breakthrough pain 6-10) Rx Instructions: Per pt he takes 3 times daily. Depends on his day how he takes it. Typically more into the night. Linzess 145 mcg capsule 145 mcg PO DAILY PRN (Reason: Constipation) morphine 100 mg tablet extended release 100 mg PO TID@08,14,20 losartan 25 mg tablet 25 mg PO DAILY Qty: 90 3RF (DME) Dexcom G6 Herbicide Service Sales Representative Misc See Rx Instructions .Route Rx Instructions: As directed (DME) Dexcom G6 Transmitter Device See Rx Instructions .Route Rx Instructions: As directed furosemide 20 mg tablet 40 mg PO DAILY Rx Instructions: 40 mg orally daily may take 3rd tab if needed; oxybutynin chloride 5 mg tablet extended release 24hr 5 mg PO DAILY Qty: 30 11RF aspirin 81 mg Tablet,Delayed Release (Dr/Ec) 81 mg PO HS albuterol sulfate 90 mcg/actuation Hfa Aerosol Inhaler 2 puff INHALATION Q6H PRN (Reason: Wheezing) Zyrtec 10 mg capsule 10 mg PO DAILY PRN (Reason: Allergy Symptoms) Rx Instructions: usually does half tab at a time montelukast 10 mg tablet 10 mg PO DAILY pantoprazole 40 mg tablet,delayed release (DR/EC) 40 mg PO .QOD cholecalciferol (vitamin D3) [Vitamin D3] 25 mcg (1,000 unit) capsule 4,000 unit PO HS morphine 15 mg tablet 15 mg PO Q6 PRN (Reason: Breakthrough Pain 1-6) hydroxyzine pamoate [Vistaril] 25 mg capsule 25 mg PO Q8H PRN (Reason: anxiety) 5 Days Qty: 15 1RF budesonide 0.5 mg/2 mL suspension for nebulization 0.5 mg inhalation BID PRN (Reason: Shortness Of Breath Or Wheezing) rosuvastatin [Crestor] 5 mg tablet 5 mg PO QAM mupirocin 2 % ointment 1 applic topical DAILY PRN (Reason: flare up) Rx Instructions: Apply to area of the right shoulder once daily with dressing changes as directed. clindamycin phosphate 1 % lotion 1 applic topical DAILY PRN (Reason: flare up) Rx Instructions: Apply to areas of the chest and back once daily after washing as directed. insulin glargine U-300 conc [Toujeo SoloStar U-300 Insulin] 300 unit/mL (1.5 mL) insulin pen 147 unit SUBCUT QAM nicotine 21 mg/24 hr Patch 24 Hour 1 patch TRANSDERMAL DAILY Discontinued metoprolol succinate 25 mg tablet extended release 24 hr 25 mg PO DAILY Admission Data Admit Date/Time: 09/20/23 15:25 Attending Provider: Aye Medeiros I. Admit Provider: Shayla Cohen Primary Care Provider: Oswaldo Sampson Other Providers: Shayla Cohen; [facility]; Joseph Garzon Other Interventions: Discharge Summary Assessment (RN) Last Done: 09/22/23 09:16 Supervising Physician Co-Signing Physician Notes Patient seen and examined Patient reviewed with Advanced Practitioner Agree with Advanced Practitioner's evaluation, findings and plans and take full responsibility
--- NOTE | 2023-09-22 21:56 | Electrocardiogram Report ---
Test Reason : Blood Pressure : / mmHG Vent. Rate : 089 BPM Atrial Rate : 089 BPM P-R Int : 240 ms QRS Dur : 128 ms QT Int : 380 ms P-R-T Axes : 054 -42 011 degrees QTc Int : 462 ms Sinus rhythm with 1st degree A-V block Left axis deviation Right bundle branch block Abnormal ECG When compared with ECG of 20-SEP-2023 13:03, [place] interval has increased Confirmed by Jaylon Bonilla ([id number]) on 09/22/2023 9:56:40 PM Referred By: REFERRED SELF Confirmed By:Jaylon Bonilla
--- NOTE | 2023-09-22 21:56 | Electrocardiogram Report ---
Test Reason : Blood Pressure : / mmHG Vent. Rate : 104 BPM Atrial Rate : 104 BPM P-R Int : 154 ms QRS Dur : 122 ms QT Int : 356 ms P-R-T Axes : 058 -57 030 degrees QTc Int : 468 ms Sinus tachycardia Right bundle branch block Left anterior fascicular block Bifascicular block Cannot rule out Inferior infarct (cited on or before 20-SEP-2023) Abnormal ECG When compared with ECG of 09-NOV-2022 05:31, ST no longer depressed in Lateral leads T wave inversion no longer evident in Lateral leads Confirmed by Jaylon Bonilla ([id number]) on 09/22/2023 9:56:24 PM Referred By: Confirmed By:Jaylon Bonilla
== END 2023-09-22 10:27 | disposition home health service (06) ==
LOC: ED 12:56 → EDINP 12:56 → SUATTDRO 15:25 → 2N 15:53

== ENCOUNTER 2024-03-19 09:32 | Inpatient (IN) ==
--- NOTE | 2024-03-19 10:06 | XRay Report ---
XR chest 1V portable HISTORY: 63 years-old Male Chest pain, nonspecific COMPARISON: Chest CT 09/20/2023 TECHNIQUE: AP view of the chest FINDINGS: Cardiac silhouette is enlarged. Median sternotomy. No pneumothorax, pleural effusion or airspace cons olidation. There is mild chronic interstitial coarsening. Prior resection of the distal left clavicle . IMPRESSION: Cardiomegaly without acute process. ACT 112: Negative or not required by law. The above report was generated using voice recognition software. It may contain grammatical, syntax o r spelling errors. Electronically signed by: Prashant Pope M.D. 03/19/2024 10:05 AM
--- NOTE | 2024-03-19 10:14 | Emergency Department Note ---
Impression & Plan Acute exacerbation of chronic obstructive pulmonary disease, URI (upper respiratory infection) ED Provider Note NAME: DAKOTA RIOS AGE: 63 SEX: M : 1960 ARRIVES VIA: Walk-In INFORMANT: Patient, ED PROVIDER(S): Dahlia Cox MD CHIEF COMPLAINT: Cough, sore throat HPI: This is a 63-year-old male with history of COPD, diabetes, CAD/post CABG presenting for shortness of breath, cough. Patient notes for the past few days he felt achy has had a flu/cold type illness. Patient notes a new cough, achy throughout his entire body. He feels weak. He has had a sore throat and difficulty swelling yesterday which is somewhat improved today. He is coughing extensively. He notes some chest pain with cough as well. No nausea vomiting or diarrhea. ROS: See above HPI for pertinent positives & negatives. A total of 10 systems reviewed and were otherwise negative. PAST MEDICAL HISTORY: See Below PAST SURGICAL HISTORY: See Below FAMILY HISTORY: See Below SOCIAL HISTORY: See Below HOME MEDICATIONS: See Below ALLERGIES: See Below VITALS: See Below PHYSICAL EXAMINATION: General: resting comfortably in no acute distress Head: Normocephalic and atraumatic Eyes: Normal inspection, extraocular muscles intact Ear, nose, throat: Normal external exam Neck: Normal range of motion Respiratory: Wheezes in all lung juarez, scattered rhonchi Cardiovascular: Regular rate/rhythm, no murmur GI: soft, nontender, no guarding or rebound Extremities: nontender, moves all extremities Neuro: The patient awake and alert, appropriately conversive, no focal deficits, symmetric faces Skin: Warm, dry, and intact MEDICAL DECISION MAKING: This is a 63-year-old male with history of COPD, diabetes, CAD presenting for shortness of breath, cough. Will do to rule out URI, pneumonia, ACS. -Patient given albuterol treatment with moderate improvement in symptoms. -ECG independently interpreted by me with sinus tachycardia rate of 109, left axis deviation, right bundle branch block, normal QTc, no ST segment elevations consistent with STEMI criteria -Blood work reviewed showing leukocytosis of 15. Left wrist within normal limits. Creatinine slightly elevated 1.42. Troponin is initially elevated at 22.3, repeat is 29.2, uptrending. -Chest x-ray as independent read by me reveals cardiomegaly without pneumothorax, pleural effusion, focal opacity -Patient is currently rhinovirus positive. -He does appear to be having a COPD exacerbation with upper respiratory infection. However he has complained of chest pain during his stay here and he said this chest pain began prior to him feeling sick. Due to the uptrending troponin, will admit for further cardiac workup and COPD treatment. -Discussed care with hospitalist service Differential diagnosis: URI, pneumonia, ACS, COPD Diagnostics interpreted by me: ECG: See above Cardiac Monitoring: An order was placed for continuous cardiac monitoring. The monitor shows a rate of 106 with sinus rhythm. Past Med/Surg History Problem List (Updated 03/19/24 @ 16:14 by Sharorn Kearns PA-C) Chronic hypoxic respiratory failure Troponin level elevated URI (upper respiratory infection) (Acute) Acute exacerbation of chronic obstructive pulmonary disease (Acute) Blurring of vision Controlled type 2 diabetes mellitus with kidney complication, with long-term current use of insulin Testicular swelling, right (Acute) Sleep apnea CPAP WITH 4 L/MIN HS. S/P UPPP. S/P CABG x 1 ASCVD (arteriosclerotic cardiovascular disease) Polycythemia, secondary Status post insertion of drug-eluting stent into left anterior descending (LAD) artery Urethral stricture Gastroparesis Opioid dependence Pulmonary emphysema Tobacco abuse Obesity Type 2 diabetes mellitus with insulin therapy Background diabetic retinopathy associated with type 2 diabetes mellitus Diabetes type 2, uncontrolled Chronic pain syndrome (Acute) Diabetic nephropathy associated with type 2 diabetes mellitus Diabetic peripheral neuropathy associated with type 2 diabetes mellitus Dysesthesia Dyslipidemia 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 Vitamin D deficiency Hypertension Obstructive sleep apnea Lumbar stenosis with neurogenic claudication Chronic back pain Asthma BPH (benign prostatic hyperplasia) (Chronic) COPD (chronic obstructive pulmonary disease) Chronic diastolic CHF (congestive heart failure) (Acute) EF 63% 05/2021 echo Therapeutic opioid-induced constipation (OIC) Postlaminectomy syndrome of lumbosacral region Tinea pedis Chronic kidney disease (CKD) Medical History Acute on chronic diastolic (congestive) heart failure Hematuria, gross Testicle swelling Acute kidney injury superimposed on CKD Bifascicular block Medical cannabis use Transient ischemic attack (TIA) On home oxygen therapy Migraines Diverticular disease History of SCC (squamous cell carcinoma) of skin History of basal cell carcinoma Obesity Post traumatic stress disorder History of acute pancreatitis Irritable bowel syndrome (IBS) GERD (gastroesophageal reflux disease) Surgical History History of coronary artery bypass graft History of heart artery stent History of cardiac cath S/P cholecystectomy History of tonsillectomy History of uvulopalatopharyngoplasty History of surgery History of repair of rotator cuff History of colonoscopy History of ERCP History of esophagogastroduodenoscopy (EGD) History of cardiac cath Fusion of spine History of appendectomy History of back surgery Family History Other COPD (chronic obstructive pulmonary disease) Cancer Diabetes Heart disease Hypertension Social History Smoking Status: Current every day smoker Tobacco Type: Cigarettes packs per day: 1; Cigarettes Per Day: 1 PPD; Second Hand Exposure: Yes; Do You Dip or Chew Tobacco: No; Hx Alcohol Use: No Hx Substance Use: Yes Last Used Substance: Days (ago) Last Used Substance Other:: 03/15 Substance Use Type Other:: MEDICAL MARIJUANA Preferred Language: [place] Communication Ability: Effective Visual Impairment: No Limitations News Clipping Cutter Required: No Beliefs That Will Affect Care: None marital status: Current Living Situation: Spouse Current Living Situation Comment: [place] current occupation: On disability Other Information That Helps Us Care for You: No Feels Safe at Home: Yes Safety Concerns: Feels Safe At This Time Diet: regular Dental Care, Regularly: No Physical Activity Frequency: Does not Exercise Do you think of yourself as: straight/heterosexual Gender Identity: Male Assistive Devices: Cane and Walker Allergies Allergies Allergy/AdvReac Type Severity Reaction Status Date / Time clarithromycin Allergy Severe DAMAGED Verified 03/19/24 13:21 LIVER PER PT-REQUIRED HOSPITALIZATION latex Allergy Intermediate skin Verified 03/19/24 13:21 irritation/rash ticagrelor [From Brilinta] AdvReac Severe sob Verified 03/19/24 13:21 adhesive AdvReac Mild SKIN Verified 03/19/24 13:21 RASH-WITH SOME TAPES dulaglutide AdvReac Unknown hx Verified 03/19/24 13:21 pancreatitis exenatide AdvReac Unknown hx Verified 03/19/24 13:21 pancreatitis liraglutide AdvReac Unknown hx Verified 03/19/24 13:21 pancreatitis semaglutide AdvReac Unknown hx Verified 03/19/24 13:21 pancreatitis Home Meds Home Medications Medication Instructions Recorded Confirmed albuterol sulfate 90 mcg/actuation 2 puff inhalation Q6H PRN Wheezing 06/26/18 03/19/24 aerosol inhaler Oxygen Home #1 ea 04/30/19 03/19/24 aspirin 81 mg tablet,delayed 81 mg PO HS 03/12/20 03/19/24 release blood-glucose meter,continuous 02/03/21 03/19/24 (Dexcom G6 Rag Inspector) blood-glucose transmitter (Dexcom 02/03/21 03/19/24 G6 Transmitter device) cetirizine 10 mg capsule (Zyrtec) 5 mg PO DAILY PRN Allergy Symptoms 03/05/21 03/19/24 morphine 100 mg tablet,extended 100 mg PO TID 10/12/21 03/19/24 release clopidogrel 75 mg tablet (Plavix) 75 mg PO QAM 05/16/22 03/19/24 linaclotide 145 mcg capsule 145 mcg PO DAILY PRN Constipation 08/01/22 03/19/24 (Linzess) morphine 30 mg tablet,extended 30 mg PO Q8H PRN breakthrough pain 08/01/22 03/19/24 release 6-10 morphine 15 mg immediate release 15 mg PO Q6H PRN Breakthrough Pain 09/13/22 03/19/24 tablet 1-6 rosuvastatin 5 mg tablet (Crestor) 5 mg PO QAM 11/08/22 03/19/24 montelukast 10 mg tablet 10 mg PO DAILY pt request 12/22/22 03/19/24 pantoprazole 40 mg tablet,delayed 40 mg PO Q OTHER DAY Heartburn 12/22/22 03/19/24 release cholecalciferol (vitamin D3) 25 5,000 unit PO HS 07/18/23 03/19/24 mcg (1,000 unit) capsule (Vitamin D3) clindamycin phosphate 1 % lotion 1 applic topical DAILY PRN flare up 09/20/23 03/19/24 insulin glargine U-300 conc 300 158 unit subcut QAM 09/20/23 03/19/24 unit/mL (1.5 mL) subcutaneous pen ([place] U-300 Insulin) mupirocin 2 % topical ointment 1 applic topical DAILY PRN flare up 09/20/23 03/19/24 nicotine 21 mg/24 hr daily 1 patch transdermal DAILY 09/20/23 03/19/24 transdermal patch ipratropium 0.5 mg-albuterol 3 mg 3 ml inhalation Q6H PRN sob or 03/19/24 03/19/24 (2.5 mg base)/3 mL nebulization wheezing soln lidocaine 5 % topical patch 2 patch topical HS 03/19/24 03/19/24 torsemide 20 mg tablet 40 mg PO QAM 03/19/24 03/19/24 Previous Rx's Medication Instructions Recorded hydroxyzine pamoate 25 mg capsule 25 mg PO Q8H PRN anxiety 5 days 06/16/21 (Vistaril) #15 caps blood sugar diagnostic #900 ea 08/19/22 blood-glucose meter (Accu-Chek #1 ea 12/29/22 Guide Glucose Meter) blood-glucose meter (OneTouch #1 ea 12/29/22 Ultra2 Meter) blood sugar diagnostic (OneTouch #1,500 ea 01/04/23 Ultra Test strips) Dexcom G6 Sensor (blood-glucose #3 ea 01/26/23 sensor) losartan 25 mg tablet 25 mg PO DAILY #90 tabs 03/24/23 Accu-Chek Guide test strips (blood #400 ea 04/19/23 sugar diagnostic) insulin aspart U-100 100 unit/mL See Rx Instructions subcut WM 90 07/13/23 (3 mL) subcutaneous pen (Novolog days #120 mL FlexPen U-100 Insulin aspart) glucagon HCl 1 mg solution for 1 mg subcut Q20M PRN hypoglycemia 10/06/23 injection (Glucagon (HCl) #1 ea Emergency Kit) blood-glucose meter (OneTouch #8 ea 02/05/24 Verio Flex Meter) testosterone 2 pump topical HS #225 grams 02/05/24 blood sugar diagnostic (OneTouch #300 ea 02/12/24 Verio test strips) Results & Data (ED) Vital Signs Vital Signs - 24 hr 03/19/24 09:35 03/19/24 10:03 03/19/24 10:03 Temperature 36.6 C Temperature Source Oral Pulse Rate 105 H Pulse Rate [Apical] Respiratory Rate 20 26 H Respiratory Effort / Characteristics Non-Labored Spontaneous Respiratory Depth Normal Respiratory Pattern Tachypnea Blood Pressure 164/72 H Blood Pressure [Right Arm] Blood Pressure Mean 102 Blood Pressure Mean [Right Arm] Pulse Oximetry 96 94 Oxygen Delivery Method Room Air Room Air Oxygen Flow Rate Sepsis Recent Fever Within 48 Hours No Sepsis New/Unexplained Change in Mental Status N/A Sepsis Action Taken by Nursing No Action Required 03/19/24 10:22 03/19/24 11:40 03/19/24 13:28 Temperature Temperature Source Pulse Rate 105 H Pulse Rate [Apical] 93 H 86 Respiratory Rate 24 18 Respiratory Effort / Characteristics Non-Labored Respiratory Depth Normal Respiratory Pattern Blood Pressure Blood Pressure [Right Arm] 132/68 171/93 H Blood Pressure Mean Blood Pressure Mean [Right Arm] 89 119 Pulse Oximetry 97 98 Oxygen Delivery Method Nasal Cannula Nasal Cannula Oxygen Flow Rate 4 4 Sepsis Recent Fever Within 48 Hours Sepsis New/Unexplained Change in Mental Status Sepsis Action Taken by Nursing Laboratory Data 03/19/24 09:57 03/19/24 09:57 Lab Results 03/19/24 03/19/24 Range/Units 09:57 11:50 WBC 14.99 H (4.8-10.8) K/ul RBC 5.51 (4.70-6.10) M/uL Hgb 13.7 L (14.0-18.0) g/dl Hct 43.7 (42.0-52.0) % MCV 79.3 L (80.0-100.0) fL MCH 24.9 L (25.0-34.0) pg MCHC 31.4 L (32.0-36.0) g/dL RDW Std Deviation 49.5 H (36.4-46.3) fL RDW Coeff of Ben 17.6 H (11.5-14.5) % Plt Count 300 (130-400) K/uL MPV 9.1 L (9.4-12.4) fL Immature Gran % (Auto) 0.4 % Neut % (Auto) 77.0 % Lymph % (Auto) 9.6 % Hays % (Auto) 11.5 % Eos % (Auto) 1.1 % Baso % (Auto) 0.4 % Neut # (Auto) 11.54 H (1.40-6.50) K/uL Lymph # (Auto) 1.44 (1.20-3.40) K/uL Hays # (Auto) 1.72 H (0.11-0.59) K/uL Eos # (Auto) 0.17 (0.00-0.50) K/uL Baso # (Auto) 0.06 (0.00-0.20) K/uL Immature Gran # (Auto) 0.06 (0.01-0.20) K/uL Sodium 134 L (136-145) mmol/L Potassium 4.6 (3.5-5.1) mmol/L Chloride 98 (98-107) mmol/L Carbon Dioxide 28 (21-32) mmol/L Anion Gap 8 (3-11) BUN 22 (6-23) mg/dl Creatinine 1.42 H (0.6-1.4) mg/dl Est Cr Clr Drug Dosing Not Reportable eGFR 56.22 BUN/Creatinine Ratio 15.5 (10-20) Glucose 114 H (70-99(Fasting)) mg/dl Calcium 9.0 (8.6-10.3) mg/dl Total Bilirubin 0.4 (0.2-1.0) mg/dl AST 31 (13-39) U/L ALT 21 (7-52) U/L Alkaline Phosphatase 68 (34-104) U/L Troponin I High Sens 22.3 H 29.2 H (0-20) pg/ml Total Protein 6.4 (6.0-8.3) gm/dl Albumin 3.7 (3.4-5.0) gm/dl Globulin 2.7 (2.5-4.0) gm/dl Albumin/Globulin Ratio 1.4 (0.9-2) Lipase 12 (11-82) U/L Adenovirus (PCR) Not Detected (NotDetected) B. pertussis DNA (PCR) Not Detected (NotDetected) B.parapertussis DNA PCR Not Detected (NotDetected) C. pneumoniae DNA (PCR) Not Detected (NotDetected) Coronavirus OC43 (PCR) Not Detected (NotDetected) Coronavirus HKU1 (PCR) Not Detected (NotDetected) Coronavirus 229E (PCR) Not Detected (NotDetected) SARS-CoV-2 (PCR) Not Detected (NotDetected) Coronavirus NL63 (PCR) Not Detected (NotDetected) Human Metapneumovir PCR Not Detected (NotDetected) Influenza Type A (PCR) Not Detected (NotDetected) Influenza Type B (PCR) Not Detected (NotDetected) M. pneumoniae (PCR) Not Detected (NotDetected) Parainfluenza 1 (PCR) Not Detected (NotDetected) Parainfluenza 2 (PCR) Not Detected (NotDetected) Parainfluenza 3 (PCR) Not Detected (NotDetected) Parainfluenza 4 (PCR) Not Detected (NotDetected) RSV (PCR) Not Detected (NotDetected) Entero/Rhino (PCR) DETECTED A (NotDetected) Administered Medications Albuterol (Albut/Ipratrop 3mg/0.5mg Neb 3 Ml Vial) 3 ml NEB Q6R COUNTS INCLUDE 234 BEDS AT THE [facility]; Protocol Stop: 04/18/24 15:04 Last Admin: 03/19/24 15:14 Dose: 3 ml Documented By: CARMEN Polyethylene Glycol (Polyethylene (Miralax) 17 Gm Pack) 17 gm PO DAILY COUNTS INCLUDE 234 BEDS AT THE [facility] Stop: 04/18/24 16:59 Last Admin: 03/19/24 17:17 Dose: Not Given Documented By: GO Prednisone (Prednisone 20 Mg Tab) 40 mg PO DAILY COUNTS INCLUDE 234 BEDS AT THE [facility] Stop: 04/18/24 16:59 Last Admin: 03/19/24 17:19 Dose: 40 mg Documented By: GO Discontinued Medications Albuterol (Albuterol 0.5% Neb Soln 2.5 Mg/0.5 Ml Vial) 2.5 mg NEB NOW STA; Protocol Stop: 03/19/24 10:15 Last Admin: 03/19/24 10:21 Dose: 2.5 mg Documented By: CLAIRE Morphine Sulfate (Morphine Sulfate Cr 60 Mg Tabcr) 60 mg PO NOW STA Stop: 03/19/24 16:00 Last Admin: 03/19/24 16:06 Dose: Not Given Documented By: WRS Morphine Sulfate (Morphine Sulfate Cr 15 Mg Tabcr) 45 mg PO NOW STA Stop: 03/19/24 16:00 Last Admin: 03/19/24 16:06 Dose: Not Given Documented By: GO Imaging Data Radiologist's Impression: Chest X-Ray 03/19/24 09:40 XR chest 1V portable HISTORY: 63 years-old Male Chest pain, nonspecific COMPARISON: Chest CT 09/20/2023 TECHNIQUE: AP view of the chest FINDINGS: Cardiac silhouette is enlarged. Median sternotomy. No pneumothorax, pleural effusion or airspace consolidation. There is mild chronic interstitial coarsening. Prior resection of the distal left clavicle. IMPRESSION: Cardiomegaly without acute process. ACT 112: Negative or not required by law. The above report was generated using voice recognition software. It may contain grammatical, syntax or spelling errors. Electronically signed by: Prashant Pope M.D. 03/19/2024 10:05 AM Discharge Plan Visit Data Chief Complaint: Cardiac Assessment Stated Complaint: COUGH, DIFFICULTY BREATHING, CHEST PAIN, NAUSEA ED Provider: Dahlia Cox Discharge Problem: Acute exacerbation of chronic obstructive pulmonary disease, URI (upper respiratory infection) Patient Disposition: Home - Self-Care Discharge Instructions Interventions: ED Discharge Assessment Last Done: 03/19/24 15:16
[2024-03-19] MEDS: ALBUTEROL 0.5% NEB SOLN 2.5 MG/0.5 ML VIAL NEB STA (10:21)
[2024-03-19 10:29] LABS: Basophils # (auto) 0.06 K/uL (0.00-0.20); Basophils % (auto) 0.4 %; Eosinophils # (auto) 0.17 K/uL (0.00-0.50); Eosinophils % (auto) 1.1 %; Hematocrit (blood only) 43.7 % (42.0-52.0); Hemoglobin 13.7 g/dl (14.0-18.0); Immature Granulocytes # (auto) 0.06 K/uL (0.01-0.20); Immature Granulocytes % (auto) 0.4 %; Lymphocytes # (auto) 1.44 K/uL (1.20-3.40); Lymphocytes % (auto) 9.6 %; Mean Corpuscular Hemoglobin 24.9 pg (25.0-34.0); Mean Corpuscular Hgb Conc 31.4 g/dL (32.0-36.0); Mean Corpuscular Volume 79.3 fL (80.0-100.0); Mean Platelet Volume 9.1 fL (9.4-12.4); Monocytes # (auto) 1.72 K/uL (0.11-0.59); Monocytes % (auto) 11.5 %; Neutrophils # (auto) 11.54 K/uL (1.40-6.50); Platelet Count 300 K/uL (130-400); RDW Coefficient of Variation 17.6 % (11.5-14.5); RDW Standard Deviation 49.5 fL (36.4-46.3); Red Blood Count 5.51 M/uL (4.70-6.10); White Blood Count 14.99 K/ul (4.8-10.8)
[2024-03-19 10:46] LABS: Alanine Aminotransferase 21 U/L (7-52); Albumin Globulin Ratio 1.4 (0.9-2); Albumin Level 3.7 gm/dl (3.4-5.0); Alkaline Phosphatase 68 U/L (34-104); Anion Gap 8 (3-11); Aspartate Aminotransferase 31 U/L (13-39); BUN Creatinine Ratio 15.5 (10-20); Bilirubin,Total 0.4 mg/dl (0.2-1.0); Blood Urea Nitrogen 22 mg/dl (6-23); Carbon Dioxide 28 mmol/L (21-32); Chloride 98 mmol/L (98-107); Globulin 2.7 gm/dl (2.5-4.0); Glucose 114 mg/dl (70-99(Fasting)); Lipase 12 U/L (11-82); Potassium 4.6 mmol/L (3.5-5.1); Sodium 134 mmol/L (136-145); Total Protein 6.4 gm/dl (6.0-8.3)
[2024-03-19 10:52] LABS: Troponin I High Sensitivity 22.3 pg/ml (0-20)
[2024-03-19 11:15] LABS: Adenovirus PCR Not Detected (NotDetected); Bordetella parapertussis PCR Not Detected (NotDetected); Bordetella pertussis PCR Not Detected (NotDetected); Chlamydia pneumoniae PCR Not Detected (NotDetected); Coronavirus 229E PCR Not Detected (NotDetected); Coronavirus CoV-2 (COVID19)PCR Not Detected (NotDetected); Coronavirus HKU1 PCR Not Detected (NotDetected); Coronavirus NL63 PCR Not Detected (NotDetected); Coronavirus OC43PCR Not Detected (NotDetected); Human Metapneumovirus PCR Not Detected (NotDetected); Influenza A PCR Not Detected (NotDetected); Influenza B PCR Not Detected (NotDetected); Mycoplasma pneumoniae PCR Not Detected (NotDetected); Parainfluenza Virus 1 PCR Not Detected (NotDetected); Parainfluenza Virus 2 PCR Not Detected (NotDetected); Parainfluenza Virus 3 PCR Not Detected (NotDetected); Parainfluenza Virus 4 PCR Not Detected (NotDetected); Respiratory Syncytial VirusPCR Not Detected (NotDetected); Rhinovirus/Enterovirus PCR DETECTED (NotDetected)
--- NOTE | 2024-03-19 13:43 | History & Physical Report ---
<Statement entered by Shane De Leon, - 03/19/24 17:19> I have seen and examined the patient and have discussed the case with the provider above. I have reviewed the advanced practitioner's documentation, and I agree with, and take responsibility for that plan of care. Patient seen and examined in the ED. Patient also requested to speak with me later in the day. He had concerns about his narcotic orders. Physical exam: Lungs: Decreased breath sounds, prolonged expiratory phase, tight wheezes Acute exacerbation of COPD in the setting of rhinovirus viral upper respiratory infection Chronic opioid dependence with some seeking behavior. Discussed plan of care as outlined below with LITTLE Extensive conversation with Sharron Kearns about patient's narcotics, she reviewed PDMP, I reviewed PDMP. She spoke with pharmacist here in the hospital to coordinate patient's home narcotic regimen as closely as possible to what he takes at home with what we have available in our pharmacy. I went to the bedside and again reviewed with him his narcotic orders. Bedside nurse spent a significant amount of time with the patient as well explaining that between his scheduled and as needed narcotics he is able to get some type of pain medication very frequently. After extensive review and assurances with the patient he seemed to understand that he has these options available to him. Date of Service March 19, 2024 Assessment & Plan (1) Troponin level elevated: (2) Chest pain: (3) URI (upper respiratory infection): (4) Chronic hypoxic respiratory failure: (5) Acute exacerbation of chronic obstructive pulmonary disease: (6) Sleep apnea: (7) S/P CABG x 1: (8) Chronic pain syndrome: (9) Opioid dependence: (10) Tobacco abuse: (11) Obesity: (12) Type 2 diabetes mellitus with insulin therapy: (13) Hypertension: (14) Chronic kidney disease (CKD): Plan This is a 63yo M with a PMH of PMH of COPD, ongoing tobacco use, DM type II, hx of NSTEMI (10/2022 CABG), chronic pain syndrome on narcotics, diabetic polyneuropathy, CKD stage III, dyslipidemia, COPD, AR (on CPAP), pulmonary emphysema, chronic diastolic congestive HF, HTN, bifascicular BBB, CAD, GERD w/ esophagitis, BPH, osteoarthritis, chronic pain syndrome, chronic back pain, polycythemia, depression/WES, tobacco use disorder and other problems listed below who presented to the ED for worsening shortness of breath. COPD exacerbation Ongoing tobacco use Chronic hypoxic respiratory failure O2 saturation at 85 on 3L NC (within normal baseline range) - monitor PCR positive for enterovirus/rhinovirus on PCR- supportive care CXR cardiomegaly without acute process Duonebs QIDR, mucinex BID, antitussives, prednisone, azithromycin, PRN albuterol inh, Singulair Nicotine patch, smoking cessation counseling Chest pain Troponin elevation Endorsing left sided CP x 1 week in setting of illness, cough - seems atypical in nature HS troponin 22.3 -> 29.2, in setting of acute illness as above EKG without significant change from previous Most recent echo from September 2023 with preserved, EF stable findings of distal LAD territory wall motion abnormality, unchanged compared to 2022 Continue aspirin, statin, plavix HFpEF Recently had diuretic transition to 40mg Torsemide daily States he is urinating more, BLE edema and weight is unchanged per patient Continue torsemide, ARB, beta judit DM II A1c 8 in July 2023, repeat in AM Patient requesting a normal diet Basal/bolus insulin while admitted Glycemic consult placed given significant home insulin regimen + steroids BSG AC HS Chronic pain syndrome Opioid dependence Given missed dose of MC contin 100mg while in ED Continue home regimen per PDMP - morphine ext release 100mg TID, morphine 30mg PO Q8H PRN for breakthrough pain, morphine 15mg Q6H PRN for breathrough pain Extended conversation regarding pain regimen had during admission process - patient expressed "wanting to control pain medications myself, "I don't want nursing to tell me no upstairs", "if you don't give me the meds when I need them I will leave" - reassured that goal is to both manage pain and safely administer home opioid regimen while admitted Bowel regimen CKD III Baseline Cr ~ 1.4 (at baseline on admission). Monitor with daily BMP Polycythemia, secondary Follows with [facility] according to [facility] records. CBC w/diff testing [id number], phlebotomy if Hct>45. Consider heme/onc consult if Hct level increases >45 DVT Ppx: SQ heparin Code status: FULL PCP: Camilla Dispo: admitted to pcu Patient seen in collaboration with Dr. De Leon. Please see addendum. I spent a total of 75 minutes coordinating, documenting, and providing care for this patient excluding time spent in the performance of separately billed services. History of Present Illness Chief Complaint: CP Primary Care Provider: Oswaldo Sampson MD This is a 63yo M with a PMH of PMH of COPD, ongoing tobacco use, DM type II, hx of NSTEMI (10/2022 CABG), chronic pain syndrome on narcotics, diabetic polyneuropathy, CKD stage III, dyslipidemia, COPD, AR (on CPAP), pulmonary emph ysema, chronic diastolic congestive HF, HTN, bifascicular BBB, CAD, GERD w/ esophagitis, BPH, osteoarthritis, chronic pain syndrome, chronic back pain, polycythemia, depression/WES, tobacco use disorder and other problems listed below who presented to the ED for worsening shortness of breath. Patient endorsing fever with Tmax of 100.9 F, congestion, cough, body aches and headache. Patient with COPD and ongoing tobacco use on 2-4 L O2 as needed during the day depending on activity level and CPAP at night. Intermittent chest pain x 1 week, worse with cough, left sided. Feels that he can't clear his sputum when he coughs. Lives at home with his . Recently followed up with [facility] and diuretic was switched to Torsemide 40mg daily. Uses his nebulizer 1x/week and albuterol inhaler. Smoking 1 ppd. No lightheadedness, hemoptysis, N/V, abd pain, dysuria, diarrhea or constipation. Allergies Allergy/AdvReac Type Severity Reaction Status Date / Time clarithromycin Allergy Severe DAMAGED Verified 03/19/24 13:21 LIVER PER PT-REQUIRED HOSPITALIZATION latex Allergy Intermediate skin Verified 03/19/24 13:21 irritation/rash ticagrelor [From Brilinta] AdvReac Severe sob Verified 03/19/24 13:21 adhesive AdvReac Mild SKIN Verified 03/19/24 13:21 RASH-WITH SOME TAPES dulaglutide AdvReac Unknown hx Verified 03/19/24 13:21 pancreatitis exenatide AdvReac Unknown hx Verified 03/19/24 13:21 pancreatitis liraglutide AdvReac Unknown hx Verified 03/19/24 13:21 pancreatitis semaglutide AdvReac Unknown hx Verified 03/19/24 13:21 pancreatitis Home Medications Medication Instructions Recorded Confirmed Type albuterol sulfate 90 mcg/actuation 2 puff inhalation Q6H PRN Wheezing 06/26/18 03/19/24 History aerosol inhaler Oxygen Home #1 ea 04/30/19 03/19/24 History aspirin 81 mg tablet,delayed 81 mg PO HS 03/12/20 03/19/24 History release blood-glucose meter,continuous 02/03/21 03/19/24 History (Dexcom G6 Snow Ranger) blood-glucose transmitter (Dexcom 02/03/21 03/19/24 History G6 Transmitter device) cetirizine 10 mg capsule (Zyrtec) 5 mg PO DAILY PRN Allergy Symptoms 03/05/21 03/19/24 History hydroxyzine pamoate 25 mg capsule 25 mg PO Q8H PRN anxiety 5 days 06/16/21 03/19/24 Rx (Vistaril) #15 caps morphine 100 mg tablet,extended 100 mg PO TID 10/12/21 03/19/24 History release clopidogrel 75 mg tablet (Plavix) 75 mg PO QAM 05/16/22 03/19/24 History linaclotide 145 mcg capsule 145 mcg PO DAILY PRN Constipation 08/01/22 03/19/24 History (Linzess) morphine 30 mg tablet,extended 30 mg PO Q8H PRN breakthrough pain 08/01/22 03/19/24 History release 6-10 blood sugar diagnostic #900 ea 08/19/22 03/19/24 Rx morphine 15 mg immediate release 15 mg PO Q6H PRN Breakthrough Pain 09/13/22 03/19/24 History tablet 1-6 rosuvastatin 5 mg tablet (Crestor) 5 mg PO QAM 11/08/22 03/19/24 History montelukast 10 mg tablet 10 mg PO DAILY pt request 12/22/22 03/19/24 History pantoprazole 40 mg tablet,delayed 40 mg PO Q OTHER DAY Heartburn 12/22/22 03/19/24 History release blood-glucose meter (Accu-Chek #1 ea 12/29/22 03/19/24 Rx Guide Glucose Meter) blood-glucose meter (OneTouch #1 ea 12/29/22 03/19/24 Rx Ultra2 Meter) blood sugar diagnostic (OneTouch #1,500 ea 01/04/23 03/19/24 Rx Ultra Test strips) Dexcom G6 Sensor (blood-glucose #3 ea 01/26/23 03/19/24 Rx sensor) losartan 25 mg tablet 25 mg PO DAILY #90 tabs 03/24/23 03/19/24 Rx Accu-Chek Guide test strips (blood #400 ea 04/19/23 03/19/24 Rx sugar diagnostic) insulin aspart U-100 100 unit/mL See Rx Instructions subcut WM 90 07/13/23 03/19/24 Rx (3 mL) subcutaneous pen (Novolog days #120 mL FlexPen U-100 Insulin aspart) cholecalciferol (vitamin D3) 25 5,000 unit PO HS 07/18/23 03/19/24 History mcg (1,000 unit) capsule (Vitamin D3) clindamycin phosphate 1 % lotion 1 applic topical DAILY PRN flare up 09/20/23 03/19/24 History insulin glargine U-300 conc 300 158 unit subcut QAM 09/20/23 03/19/24 History unit/mL (1.5 mL) subcutaneous pen (Toujeo SoloStar U-300 Insulin) mupirocin 2 % topical ointment 1 applic topical DAILY PRN flare up 09/20/23 03/19/24 History nicotine 21 mg/24 hr daily 1 patch transdermal DAILY 09/20/23 03/19/24 History transdermal patch glucagon HCl 1 mg solution for 1 mg subcut Q20M PRN hypoglycemia 10/06/23 03/19/24 Rx injection (Glucagon (HCl) #1 ea Emergency Kit) blood-glucose meter (OneTouch #8 ea 02/05/24 03/19/24 Rx Verio Flex Meter) testosterone 2 pump topical HS #225 grams 02/05/24 03/19/24 Rx blood sugar diagnostic (OneTouch #300 ea 02/12/24 03/19/24 Rx Verio test strips) ipratropium 0.5 mg-albuterol 3 mg 3 ml inhalation Q6H PRN sob or 03/19/24 03/19/24 History (2.5 mg base)/3 mL nebulization wheezing soln lidocaine 5 % topical patch 2 patch topical HS 03/19/24 03/19/24 History torsemide 20 mg tablet 40 mg PO QAM 03/19/24 03/19/24 History Past Med/Surg History Problem List (Updated 03/19/24 @ 16:14 by Sharron Kearns PA-C) Chronic hypoxic respiratory failure Troponin level elevated URI (upper respiratory infection) (Acute) Acute exacerbation of chronic obstructive pulmonary disease (Acute) Blurring of vision Controlled type 2 diabetes mellitus with kidney complication, with long-term current use of insulin Testicular swelling, right (Acute) Sleep apnea CPAP WITH 4 L/MIN HS. S/P UPPP. S/P CABG x 1 ASCVD (arteriosclerotic cardiovascular disease) Polycythemia, secondary Status post insertion of drug-eluting stent into left anterior descending (LAD) artery Urethral stricture Gastroparesis Opioid dependence Pulmonary emphysema Tobacco abuse Obesity Type 2 diabetes mellitus with insulin therapy Background diabetic retinopathy associated with type 2 diabetes mellitus Diabetes type 2, uncontrolled Chronic pain syndrome (Acute) Diabetic nephropathy associated with type 2 diabetes mellitus Diabetic peripheral neuropathy associated with type 2 diabetes mellitus Dysesthesia Dyslipidemia 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 Vitamin D deficiency Hypertension Obstructive sleep apnea Lumbar stenosis with neurogenic claudication Chronic back pain Asthma BPH (benign prostatic hyperplasia) (Chronic) COPD (chronic obstructive pulmonary disease) Chronic diastolic CHF (congestive heart failure) (Acute) EF 63% 05/2021 echo Therapeutic opioid-induced constipation (OIC) Postlaminectomy syndrome of lumbosacral region Tinea pedis Chronic kidney disease (CKD) Medical History Acute on chronic diastolic (congestive) heart failure Hematuria, gross Testicle swelling Acute kidney injury superimposed on CKD Bifascicular block Medical cannabis use Transient ischemic attack (TIA) On home oxygen therapy Migraines Diverticular disease History of SCC (squamous cell carcinoma) of skin History of basal cell carcinoma Obesity Post traumatic stress disorder History of acute pancreatitis Irritable bowel syndrome (IBS) GERD (gastroesophageal reflux disease) Surgical History History of coronary artery bypass graft History of heart artery stent History of cardiac cath S/P cholecystectomy History of tonsillectomy History of uvulopalatopharyngoplasty History of surgery History of repair of rotator cuff History of colonoscopy History of ERCP History of esophagogastroduodenoscopy (EGD) History of cardiac cath Fusion of spine History of appendectomy History of back surgery Family History Other COPD (chronic obstructive pulmonary disease) Cancer Diabetes Heart disease Hypertension Social History Smoking Status: Current every day smoker Tobacco Type: Cigarettes packs per day: 1; Cigarettes Per Day: 1 PPD; Second Hand Exposure: Yes; Do You Dip or Chew Tobacco: No; Hx Alcohol Use: No Hx Substance Use: Yes Last Used Substance: Days (ago) Last Used Substance Other:: 03/15 Substance Use Type Other:: MEDICAL MARIJUANA Preferred Language: Hungarian Communication Ability: Effective Visual Impairment: No Limitations Photovoltaic Installer Required: No Beliefs That Will Affect Care: None marital status: Current Living Situation: Spouse Current Living Situation Comment: [facility] current occupation: On disability Other Information That Helps Us Care for You: No Feels Safe at Home: Yes Safety Concerns: Feels Safe At This Time Diet: regular Dental Care, Regularly: No Physical Activity Frequency: Does not Exercise Do you think of yourself as: straight/heterosexual Gender Identity: Male Assistive Devices: Cane and Walker Review of Systems Review of Systems: At least ten systems reviewed and negative except as noted in the HPI. Physical Exam Physical Exam: General Appearance: WD/WN, vitals as above, NAD, sitting up in chair, intermittently agitated Head: normocephalic, atraumatic Eyes: normal inspection, PERRL, conjunctivae normal, anicteric sclerae ENT: external ear and nose normal, oropharynx normal Neck: normal visual inspection, trachea midline, no thyromegaly Respiratory: normal respiratory effort, diminished breath sounds, expiratory wheezing throughout. No accessory muscle use Cardiovascular: tachycardic rate, regular rhythm, normal peripheral pulses, 1+ BLE edema Chest: normal inspection of chest Abdomen/GI: normal bowel sounds, soft but distended, nontender, no hepatosplenomegaly Extremities/Musculoskeletal: no cyanosis or clubbing, extremities motor strength 5/5 Neurologic: PERRL, EOMI, accommodation nl, no face palsy, no dysarthria, CN's II-XI intact bilaterally and moves all extremities Psychiatric: A+Ox3, euthymic affect Skin: no rashes, normal color, warm/dry Results & Data Results & Data Vital Signs (Past 12 Hours) Vital Signs Temp Pulse Pulse Resp BP BP Pulse Ox 03/19/24 13:28 86 18 171/93 H 98 03/19/24 11:40 93 H 24 132/68 97 12/03/24 10:22 105 H 03/19/24 10:03 94 03/19/24 10:03 26 H 03/19/24 09:35 36.6 C 105 H 20 164/72 H 96 O2 Del Method O2 Flow Rate 03/19/24 13:28 Nasal Cannula 4 03/19/24 11:40 Nasal Cannula 4 03/19/24 10:22 03/19/24 10:03 Room Air 03/19/24 10:03 03/19/24 09:35 Room Air Laboratory Results Short CBC 03/19/24 Range/Units 09:57 WBC 14.99 H (4.8-10.8) K/ul Hgb 13.7 L (14.0-18.0) g/dl Hct 43.7 (42.0-52.0) % Plt Count 300 (130-400) K/uL BMP 03/19/24 09:57 Sodium 134 L Potassium 4.6 Chloride 98 Carbon Dioxide 28 BUN 22 Creatinine 1.42 H Glucose 114 H Calcium 9.0 Liver Function 03/19/24 Range/Units 09:57 Total Bilirubin 0.4 (0.2-1.0) mg/dl AST 31 (13-39) U/L ALT 21 (7-52) U/L Alkaline Phosphatase 68 (34-104) U/L Albumin 3.7 (3.4-5.0) gm/dl Diagnostic Findings Chest X-Ray 03/19/24 09:40 XR chest 1V portable HISTORY: 63 years-old Male Chest pain, nonspecific COMPARISON: Chest CT 09/20/2023 TECHNIQUE: AP view of the chest FINDINGS: Cardiac silhouette is enlarged. Median sternotomy. No pneumothorax, pleural effusion or airspace consolidation. There is mild chronic interstitial coarsening. Prior resection of the distal left clavicle. IMPRESSION: Cardiomegaly without acute process. ACT 112: Negative or not required by law. The above report was generated using voice recognition software. It may contain grammatical, syntax or spelling errors. Electronically signed by: Prashant Pope M.D. 03/19/2024 10:05 AM ECG Additional Comments: Sinus tachycardia Left axis deviation Right bundle branch block Abnormal ECG When compared with ECG of 21-Sep-2023 09:19, NC interval has decreased (2) Chest pain Chest pain type: unspecified Qualified Code(s): R07.9 - Chest pain, unspecified (13) Hypertension Hypertension type: unspecified Qualified Code(s): I10 - Essential (primary) hypertension
--- NOTE | 2024-03-19 14:19 | Electrocardiogram Report ---
Test Reason : Blood Pressure : */* mmHG Vent. Rate : 109 BPM Atrial Rate : 109 BPM P-R Int : 144 ms QRS Dur : 124 ms QT Int : 344 ms P-R-T Axes : 46 -44 40 degrees QTcB Int : 463 ms Sinus tachycardia Left axis deviation Right bundle branch block Abnormal ECG When compared with ECG of 21-Sep-2023 09:19, RI interval has decreased Confirmed by Herbert Mahoney ([id number]) on 03/19/2024 2:19:05 PM Referred By: Confirmed By: Herbert Mahoney
[2024-03-19] MEDS ORDERED: PHARMACY GLYCEMIC MGMT CONSULT PRN (14:55)
[2024-03-19] MEDS: ALBUT/IPRATROP 3MG/0.5MG NEB 3 ML VIAL NEB SCH (15:14)
[2024-03-19] MEDS ORDERED: POLYETHYLENE (MIRALAX) 17 GM PACK PO PRN (15:27)
[2024-03-19] MEDS ORDERED: MUPIROCIN 2% OINT 22 GM TUBE TOP PRN (15:27)
[2024-03-19] MEDS ORDERED: CETIRIZINE HCL 10 MG TABLET PO PRN (15:27)
[2024-03-19] MEDS ORDERED: ACETAMINOPHEN 325 MG TAB PO PRN (15:27)
[2024-03-19] MEDS ORDERED: NON-FORMULARY MEDICATION (Clindamycin Phosphate 1 % lotion) TOP PRN (15:27)
[2024-03-19] MEDS ORDERED: ONDANSETRON INJ 2 MG/ML 2 ML VIAL IV PRN (15:27)
[2024-03-19] MEDS ORDERED: NON-FORMULARY MEDICATION (Morphine 30 mg tablet extended release) PO PRN (15:27)
[2024-03-19] MEDS ORDERED: MoRPHine SULFATE CR 60 MG TABCR PO STA (15:48)
[2024-03-19] MEDS ORDERED: MoRPHine SULFATE CR 15 MG TABCR PO STA (15:49)
[2024-03-19] MEDS: MoRPHine SULFATE CR 60 MG TABCR PO STA (16:06)
[2024-03-19] MEDS: MoRPHine SULFATE CR 15 MG TABCR PO STA ×2 (16:06→21:49)
[2024-03-19] MEDS ORDERED: DEXTROSE 50% 50 ML SYRINGE IV PRN (16:45)
[2024-03-19] MEDS ORDERED: GLUCOSE 10 TAB/TUBE PO PRN (16:45)
[2024-03-19] MEDS ORDERED: GLUCOSE 40% GEL 15 GM TUBE PO PRN (16:45)
[2024-03-19] MEDS ORDERED: GLUCAGON FOR INJ 1 MG VIAL SQ PRN (16:45)
[2024-03-19] MEDS ORDERED: CARBOHYDRATES FOR HYPOGLYCEMIA PO PRN (16:45)
[2024-03-19] MEDS ORDERED: bisacodyL 5 MG TABEC PO PRN (16:59)
[2024-03-19] MEDS: POLYETHYLENE (MIRALAX) 17 GM PACK PO SCH (17:17)
[2024-03-19] MEDS: predniSONE 20 MG TAB PO SCH (17:19)
[2024-03-19] MEDS: guaiFENesin 600 MG TABCR PO SCH (17:45)
[2024-03-19] MEDS: AZITHROMYCIN 250 MG TAB PO ONE (17:45)
[2024-03-19] MEDS: PANTOprazole 40 MG TAB PO SCH (17:45)
[2024-03-19] MEDS: INSULIN ASPART PER UNIT CHARGE SC SCH (17:55)
[2024-03-19] MEDS: MoRPHine SULFATE IR 15 MG TAB (IMMEDIATE RELEASE) PO PRN (18:13)
[2024-03-19] MEDS: MoRPHine SULFATE CR 15 MG TABCR PO PRN (18:14)
[2024-03-19] MEDS: MoRPHine SULFATE CR 15 MG TABCR PO SCH (20:22)
[2024-03-19] MEDS: ASPIRIN 81 MG ECTAB PO SCH (20:59)
[2024-03-19] MEDS: CHOLECALCIFEROL 25 MCG (1000 UNITS) TAB PO SCH (20:59)
[2024-03-19] MEDS ORDERED: MORPHINE 100 MG PO SCH (21:00)
[2024-03-19] MEDS: LIDOCAINE 5% 1 PATCH TD SCH (21:00)
[2024-03-19] MEDS: HEPARIN SOD 5,000 UNIT/0.5 ML VIAL SQ SCH (21:08)
[2024-03-19] MEDS ORDERED: MoRPHine SULFATE CR 15 MG TABCR PO ONE (21:11)
[2024-03-19] MEDS: MoRPHine SULFATE CR 60 MG TABCR PO SCH (21:30)
[2024-03-19] MEDS: ALBUTEROL HFA 8 GM INHALER INH PRN (21:56)
[2024-03-20] MEDS: METOPROLOL SUCC 25MG EXT REL TAB PO SCH (00:21)
[2024-03-20] MEDS: amLODIPine BESYLATE 5 MG TAB PO SCH (00:22)
[2024-03-20] MEDS: INSULIN ASPART PER UNIT CHARGE SC SCH (02:49)
--- NOTE | 2024-03-20 03:43 | Communication Note ---
Date of Service: March 19, 2024 Made aware by RN of uncontrolled blood pressure. SBP 170s to 190s since afternoon. Patient asymptomatic as per RN. AP Hypertensive urgency Add amlodipine to regimen Will relay to AM provider.
[2024-03-20 07:46] LABS: Hematocrit (blood only) 42.7 % (42.0-52.0); Hemoglobin 13.1 g/dl (14.0-18.0); Mean Corpuscular Hemoglobin 24.5 pg (25.0-34.0); Mean Corpuscular Hgb Conc 30.7 g/dL (32.0-36.0); Mean Platelet Volume 8.9 fL (9.4-12.4); Platelet Count 285 K/uL (130-400); RDW Coefficient of Variation 17.3 % (11.5-14.5); RDW Standard Deviation 50.5 fL (36.4-46.3); Red Blood Count 5.34 M/uL (4.70-6.10); White Blood Count 11.67 K/ul (4.8-10.8)
--- NOTE | 2024-03-20 07:58 | Hospitalist Progress Note ---
Date of Service March 20, 2024 Assessment & Plan (1) Troponin level elevated: (2) Chest pain: (3) URI (upper respiratory infection): (4) Chronic hypoxic respiratory failure: (5) Acute exacerbation of chronic obstructive pulmonary disease: (6) Sleep apnea: (7) S/P CABG x 1: (8) Chronic pain syndrome: (9) Opioid dependence: (10) Tobacco abuse: (11) Obesity: (12) Type 2 diabetes mellitus with insulin therapy: (13) Hypertension: (14) Chronic kidney disease (CKD): Plan This is a 63yo M with a PMH of PMH of COPD, ongoing tobacco use, DM type II, hx of NSTEMI (10/2022 CABG), chronic pain syndrome on narcotics, diabetic polyneuropathy, CKD stage III, dyslipidemia, COPD, AR (on CPAP), pulmonary emphysema, chronic diastolic congestive HF, HTN, bifascicular BBB, CAD, GERD w/ esophagitis, BPH, osteoarthritis, chronic pain syndrome, chronic back pain, polycythemia, depression/WES, tobacco use disorder and other problems listed below who presented to the ED for worsening shortness of breath. COPD exacerbation Ongoing tobacco use Chronic hypoxic respiratory failure O2 saturation at 85 on 3L NC on admission (within normal baseline range) - monitor PCR positive for enterovirus/rhinovirus on PCR- supportive care CXR cardiomegaly without acute process Duonebs QIDR, mucinex BID, antitussives, prednisone, azithromycin, PRN albuterol inh, Singulair Nicotine patch, smoking cessation counseling Chest pain Troponin elevation Endorsing left sided CP x 1 week in setting of illness, cough - seems atypical in nature HS troponin 22.3 -> 29 ->60s -> 56, in setting of acute illness as above EKG without significant change from previous Most recent echo from September 2023 with preserved, EF stable findings of distal LAD territory wall motion abnormality, unchanged compared to 2022 Repeat echo ordered, discussed w/ cardiology Continue aspirin, statin, plavix Give lasix 100 IV x1, increase losartan to 100 mg daily outpt stress test HFpEF Recently had diuretic transition to 40mg Torsemide daily (by outpt cardiology) States he is urinating more, BLE edema and weight is unchanged per patient Cardiology consulted - torsemide stopped for now, IV lasix given, losartan increased to 100 daily, beta judit DM II A1c 8 in July 2023, repeat in AM Patient requesting a normal diet Basal/bolus insulin while admitted Glycemic consult placed given significant home insulin regimen + steroids BSG AC HS Chronic pain syndrome Opioid dependence Given missed dose of MC contin 100mg while in ED Continue home regimen per PDMP - morphine ext release 100mg TID, morphine 30mg PO Q8H PRN for breakthrough pain, morphine 15mg Q6H PRN for breathrough pain Extended conversation with admitting team - regarding pain regimen had during admission process - patient expressed "wanting to control pain medications myself, "I don't want nursing to tell me no upstairs", "if you don't give me the meds when I need them I will leave" - reassured that goal is to both manage pain and safely administer home opioid regimen while admitted Bowel regimen CKD III Baseline Cr ~ 1.4 (at baseline on admission). Monitor with daily BMP Polycythemia, secondary Follows with [facility] according to [facility] records. CBC w/diff testing [id number], phlebotomy if Hct>45. Consider heme/onc consult if Hct level increases >45 DVT Ppx: SQ heparin Code status: FULL PCP: Dr. Sampson Dispo: pcu Admission and Anticipated Discharge Date Admission Date: March 19, 2024 Subjective Pt seen in follow up of URI (rhinovirus), COPD exacerbation, also complains of CP and elev. troponin Pt is currently sitting up in bed in NAD Reports difficulty coughing up phlegm but feels it's loosing up. Has rhinorrhea, clear. Pt declines nasal spray. Currently no fever, chills, abd. pain, n/v However reports chest pain from coughing, also reports having CP prior to his cough -> reports being seen in outpt cardiology clinic for that as well and started on torsemide at that time -> pt concerned about chest pain and having his troponin elevated on admission - would like to be further evaluated for his poss. cardiac symptoms --> discussed this w/ cardiology and echo also ordered Sputum cultx also ordered Discussed close follow up w/ pcp and pulmonary med. after hospital discharge - pt in agreement Review of Systems Review of Systems: All systems reviewed & are unremarkable except as noted in Subjective Physical Exam Physical Exam: General Appearance: WD/WN, vitals as above, NAD, sitting up in chair, intermittently agitated Head: normocephalic, atraumatic Eyes: normal inspection, PERRL, conjunctivae normal, anicteric sclerae ENT: external ear and nose normal Neck: supple Respiratory: normal respiratory effort, diminished breath sounds, expiratory wheezing throughout. No accessory muscle use Cardiovascular: regular rhythm, 1+ BLE edema Chest: normal inspection of chest Abdomen/GI: normal bowel sounds, soft but distended, nontender Extremities/Musculoskeletal: extremities motor strength 5/5, moves extremities Neurologic: PERRL, EOMI, no face palsy, no dysarthria, moves all extremities Psychiatric: A+Ox3, euthymic affect Skin: warm/dry Results & Data Results & Data Vital Signs (Past 12 Hours) Vital Signs Temp Pulse Pulse Resp BP BP Pulse Ox 03/20/24 07:35 36.5 C 85 22 164/75 H 96 03/20/24 07:06 74 16 96 03/20/24 02:42 36.7 C 88 20 157/67 H 94 03/20/24 02:28 98 H 13 98 03/20/24 00:00 96 H 03/19/24 22:44 37 C 95 H 20 177/79 H 95 03/19/24 22:15 196/80 H 184/75 H 03/19/24 21:58 96 H 18 95 03/19/24 21:20 91 H 14 98 03/19/24 20:20 03/19/24 20:19 37.1 C 105 H 20 166/74 H 95 O2 Del Method O2 Flow Rate 03/20/24 07:35 Nasal Cannula 3 03/20/24 07:06 CPAP 3 03/20/24 02:42 Nasal CPAP 03/20/24 02:28 2 03/20/24 00:00 03/19/24 22:44 Nasal CPAP 03/19/24 22:15 03/19/24 21:58 Nasal Cannula 2 03/19/24 21:20 2 03/19/24 20:20 Nasal Cannula, CPAP 4 03/19/24 20:19 Nasal Cannula Laboratory Results 03/20/24 03/20/24 03/20/24 Range/Units 07:32 07:23 02:09 WBC 11.67 H (4.8-10.8) K/ul RBC 5.34 (4.70-6.10) M/uL Hgb 13.1 L (14.0-18.0) g/dl Hct 42.7 (42.0-52.0) % MCV 80.0 (80.0-100.0) fL MCH 24.5 L (25.0-34.0) pg MCHC 30.7 L (32.0-36.0) g/dL RDW Std Deviation 50.5 H (36.4-46.3) fL RDW Coeff of Ben 17.3 H (11.5-14.5) % Plt Count 285 (130-400) K/uL MPV 8.9 L (9.4-12.4) fL Immature Gran % (Auto) % Neut % (Auto) % Lymph % (Auto) % [place] % (Auto) % Eos % (Auto) % Baso % (Auto) % Neut # (Auto) (1.40-6.50) K/uL Lymph # (Auto) (1.20-3.40) K/uL [place] # (Auto) (0.11-0.59) K/uL Eos # (Auto) (0.00-0.50) K/uL Baso # (Auto) (0.00-0.20) K/uL Immature Gran # (Auto) (0.01-0.20) K/uL Sodium Pending (136-145) mmol/L Potassium Pending (3.5-5.1) mmol/L Chloride Pending (98-107) mmol/L Carbon Dioxide Pending (21-32) mmol/L Anion Gap Pending (3-11) BUN Pending (6-23) mg/dl Creatinine Pending (0.6-1.4) mg/dl Est Cr Clr Drug Dosing Pending eGFR Pending BUN/Creatinine Ratio Pending (10-20) Glucose Pending (70-99(Fasting)) mg/dl POC Glucose 192 H 229 H (70-99) mg/dl Calcium Pending (8.6-10.3) mg/dl Total Bilirubin (0.2-1.0) mg/dl AST (13-39) U/L ALT (7-52) U/L Alkaline Phosphatase (34-104) U/L Troponin I High Sens (0-20) pg/ml Total Protein (6.0-8.3) gm/dl Albumin (3.4-5.0) gm/dl Globulin (2.5-4.0) gm/dl Albumin/Globulin Ratio (0.9-2) Lipase (11-82) U/L Nasal Screen MRSA (PCR) (Negative) Adenovirus (PCR) (NotDetected) B. pertussis DNA (PCR) (NotDetected) B.parapertussis DNA PCR (NotDetected) C. pneumoniae DNA (PCR) (NotDetected) Coronavirus OC43 (PCR) (NotDetected) Coronavirus HKU1 (PCR) (NotDetected) Coronavirus 229E (PCR) (NotDetected) SARS-CoV-2 (PCR) (NotDetected) Coronavirus NL63 (PCR) (NotDetected) Human Metapneumovir PCR (NotDetected) Influenza Type A (PCR) (NotDetected) Influenza Type B (PCR) (NotDetected) M. pneumoniae (PCR) (NotDetected) Parainfluenza 1 (PCR) (NotDetected) Parainfluenza 2 (PCR) (NotDetected) Parainfluenza 3 (PCR) (NotDetected) Parainfluenza 4 (PCR) (NotDetected) RSV (PCR) (NotDetected) Entero/Rhino (PCR) (NotDetected) 03/19/24 03/19/24 03/19/24 Range/Units Unknown 23:13 21:48 WBC (4.8-10.8) K/ul RBC (4.70-6.10) M/uL Hgb (14.0-18.0) g/dl Hct (42.0-52.0) % MCV (80.0-100.0) fL MCH (25.0-34.0) pg MCHC (32.0-36.0) g/dL RDW Std Deviation (36.4-46.3) fL RDW Coeff of Ben (11.5-14.5) % Plt Count (130-400) K/uL MPV (9.4-12.4) fL Immature Gran % (Auto) % Neut % (Auto) % Lymph % (Auto) % [place] % (Auto) % Eos % (Auto) % Baso % (Auto) % Neut # (Auto) (1.40-6.50) K/uL Lymph # (Auto) (1.20-3.40) K/uL [place] # (Auto) (0.11-0.59) K/uL Eos # (Auto) (0.00-0.50) K/uL Baso # (Auto) (0.00-0.20) K/uL Immature Gran # (Auto) (0.01-0.20) K/uL Sodium (136-145) mmol/L Potassium (3.5-5.1) mmol/L Chloride (98-107) mmol/L Carbon Dioxide (21-32) mmol/L Anion Gap (3-11) BUN (6-23) mg/dl Creatinine (0.6-1.4) mg/dl Est Cr Clr Drug Dosing eGFR BUN/Creatinine Ratio (10-20) Glucose (70-99(Fasting)) mg/dl POC Glucose 261 H (70-99) mg/dl Calcium (8.6-10.3) mg/dl Total Bilirubin (0.2-1.0) mg/dl AST (13-39) U/L ALT (7-52) U/L Alkaline Phosphatase (34-104) U/L Troponin I High Sens 56.0 H* (0-20) pg/ml Total Protein (6.0-8.3) gm/dl Albumin (3.4-5.0) gm/dl Globulin (2.5-4.0) gm/dl Albumin/Globulin Ratio (0.9-2) Lipase (11-82) U/L Nasal Screen MRSA (PCR) Negative (Negative) Adenovirus (PCR) (NotDetected) B. pertussis DNA (PCR) (NotDetected) B.parapertussis DNA PCR (NotDetected) C. pneumoniae DNA (PCR) (NotDetected) Coronavirus OC43 (PCR) (NotDetected) Coronavirus HKU1 (PCR) (NotDetected) Coronavirus 229E (PCR) (NotDetected) SARS-CoV-2 (PCR) (NotDetected) Coronavirus NL63 (PCR) (NotDetected) Human Metapneumovir PCR (NotDetected) Influenza Type A (PCR) (NotDetected) Influenza Type B (PCR) (NotDetected) M. pneumoniae (PCR) (NotDetected) Parainfluenza 1 (PCR) (NotDetected) Parainfluenza 2 (PCR) (NotDetected) Parainfluenza 3 (PCR) (NotDetected) Parainfluenza 4 (PCR) (NotDetected) RSV (PCR) (NotDetected) Entero/Rhino (PCR) (NotDetected) 03/19/24 03/19/24 03/19/24 Range/Units 18:30 16:12 11:50 WBC (4.8-10.8) K/ul RBC (4.70-6.10) M/uL Hgb (14.0-18.0) g/dl Hct (42.0-52.0) % MCV (80.0-100.0) fL MCH (25.0-34.0) pg MCHC (32.0-36.0) g/dL RDW Std Deviation (36.4-46.3) fL RDW Coeff of Ben (11.5-14.5) % Plt Count (130-400) K/uL MPV (9.4-12.4) fL Immature Gran % (Auto) % Neut % (Auto) % Lymph % (Auto) % [place] % (Auto) % Eos % (Auto) % Baso % (Auto) % Neut # (Auto) (1.40-6.50) K/uL Lymph # (Auto) (1.20-3.40) K/uL [place] # (Auto) (0.11-0.59) K/uL Eos # (Auto) (0.00-0.50) K/uL Baso # (Auto) (0.00-0.20) K/uL Immature Gran # (Auto) (0.01-0.20) K/uL Sodium (136-145) mmol/L Potassium (3.5-5.1) mmol/L Chloride (98-107) mmol/L Carbon Dioxide (21-32) mmol/L Anion Gap (3-11) BUN (6-23) mg/dl Creatinine (0.6-1.4) mg/dl Est Cr Clr Drug Dosing eGFR BUN/Creatinine Ratio (10-20) Glucose (70-99(Fasting)) mg/dl POC Glucose 177 H (70-99) mg/dl Calcium (8.6-10.3) mg/dl Total Bilirubin (0.2-1.0) mg/dl AST (13-39) U/L ALT (7-52) U/L Alkaline Phosphatase (34-104) U/L Troponin I High Sens 62.9 H* D 29.2 H (0-20) pg/ml Total Protein (6.0-8.3) gm/dl Albumin (3.4-5.0) gm/dl Globulin (2.5-4.0) gm/dl Albumin/Globulin Ratio (0.9-2) Lipase (11-82) U/L Nasal Screen MRSA (PCR) (Negative) Adenovirus (PCR) (NotDetected) B. pertussis DNA (PCR) (NotDetected) B.parapertussis DNA PCR (NotDetected) C. pneumoniae DNA (PCR) (NotDetected) Coronavirus OC43 (PCR) (NotDetected) Coronavirus HKU1 (PCR) (NotDetected) Coronavirus 229E (PCR) (NotDetected) SARS-CoV-2 (PCR) (NotDetected) Coronavirus NL63 (PCR) (NotDetected) Human Metapneumovir PCR (NotDetected) Influenza Type A (PCR) (NotDetected) Influenza Type B (PCR) (NotDetected) M. pneumoniae (PCR) (NotDetected) Parainfluenza 1 (PCR) (NotDetected) Parainfluenza 2 (PCR) (NotDetected) Parainfluenza 3 (PCR) (NotDetected) Parainfluenza 4 (PCR) (NotDetected) RSV (PCR) (NotDetected) Entero/Rhino (PCR) (NotDetected) 03/19/24 Range/Units 09:57 WBC 14.99 H (4.8-10.8) K/ul RBC 5.51 (4.70-6.10) M/uL Hgb 13.7 L (14.0-18.0) g/dl Hct 43.7 (42.0-52.0) % MCV 79.3 L (80.0-100.0) fL MCH 24.9 L (25.0-34.0) pg MCHC 31.4 L (32.0-36.0) g/dL RDW Std Deviation 49.5 H (36.4-46.3) fL RDW Coeff of Ben 17.6 H (11.5-14.5) % Plt Count 300 (130-400) K/uL MPV 9.1 L (9.4-12.4) fL Immature Gran % (Auto) 0.4 % Neut % (Auto) 77.0 % Lymph % (Auto) 9.6 % [place] % (Auto) 11.5 % Eos % (Auto) 1.1 % Baso % (Auto) 0.4 % Neut # (Auto) 11.54 H (1.40-6.50) K/uL Lymph # (Auto) 1.44 (1.20-3.40) K/uL [place] # (Auto) 1.72 H (0.11-0.59) K/uL Eos # (Auto) 0.17 (0.00-0.50) K/uL Baso # (Auto) 0.06 (0.00-0.20) K/uL Immature Gran # (Auto) 0.06 (0.01-0.20) K/uL Sodium 134 L (136-145) mmol/L Potassium 4.6 (3.5-5.1) mmol/L Chloride 98 (98-107) mmol/L Carbon Dioxide 28 (21-32) mmol/L Anion Gap 8 (3-11) BUN 22 (6-23) mg/dl Creatinine 1.42 H (0.6-1.4) mg/dl Est Cr Clr Drug Dosing Not Reportable eGFR 56.22 BUN/Creatinine Ratio 15.5 (10-20) Glucose 114 H (70-99(Fasting)) mg/dl POC Glucose (70-99) mg/dl Calcium 9.0 (8.6-10.3) mg/dl Total Bilirubin 0.4 (0.2-1.0) mg/dl AST 31 (13-39) U/L ALT 21 (7-52) U/L Alkaline Phosphatase 68 (34-104) U/L Troponin I High Sens 22.3 H (0-20) pg/ml Total Protein 6.4 (6.0-8.3) gm/dl Albumin 3.7 (3.4-5.0) gm/dl Globulin 2.7 (2.5-4.0) gm/dl Albumin/Globulin Ratio 1.4 (0.9-2) Lipase 12 (11-82) U/L Nasal Screen MRSA (PCR) (Negative) Adenovirus (PCR) Not Detected (NotDetected) B. pertussis DNA (PCR) Not Detected (NotDetected) B.parapertussis DNA PCR Not Detected (NotDetected) C. pneumoniae DNA (PCR) Not Detected (NotDetected) Coronavirus OC43 (PCR) Not Detected (NotDetected) Coronavirus HKU1 (PCR) Not Detected (NotDetected) Coronavirus 229E (PCR) Not Detected (NotDetected) SARS-CoV-2 (PCR) Not Detected (NotDetected) Coronavirus NL63 (PCR) Not Detected (NotDetected) Human Metapneumovir PCR Not Detected (NotDetected) Influenza Type A (PCR) Not Detected (NotDetected) Influenza Type B (PCR) Not Detected (NotDetected) M. pneumoniae (PCR) Not Detected (NotDetected) Parainfluenza 1 (PCR) Not Detected (NotDetected) Parainfluenza 2 (PCR) Not Detected (NotDetected) Parainfluenza 3 (PCR) Not Detected (NotDetected) Parainfluenza 4 (PCR) Not Detected (NotDetected) RSV (PCR) Not Detected (NotDetected) Entero/Rhino (PCR) DETECTED A (NotDetected) Medications Administered Current Inpatient Medications Acetaminophen (Acetaminophen 325 Mg Tab) 650 mg PO Q4H PRN PRN Reason: Pain or Fever Stop: 04/18/24 15:26 Albuterol (Albut/Ipratrop 3mg/0.5mg Neb 3 Ml Vial) 3 ml NEB Q6R [facility]; Protocol Stop: 04/18/24 15:04 Last Admin: 03/20/24 07:05 Dose: 3 ml Albuterol (Albuterol Hfa 8 Gm Inhaler) 2 puffs INH Q6H PRN PRN Reason: Wheezing Stop: 04/18/24 15:26 Last Admin: 03/19/24 21:56 Dose: 2 puffs Amlodipine Besylate (Amlodipine Besylate 5 Mg Tab) 2.5 mg PO HS [facility] Stop: 04/18/24 23:04 Last Admin: 03/20/24 00:22 Dose: 2.5 mg Aspirin (Aspirin 81 Mg Ectab) 81 mg PO HS [facility] Stop: 04/18/24 20:59 Last Admin: 03/19/24 20:59 Dose: 81 mg Azithromycin ([facility] 250 Mg Tab) [facility] [place] Stop: 03/25/24 08:59 Bisacodyl (Bisacodyl 5 Mg Tabec) 5 mg PO DAILY PRN PRN Reason: Constipation Stop: 04/18/24 16:58 Cetirizine HCl (Cetirizine Hcl 10 Mg Tablet) 5 mg PO DAILY PRN PRN Reason: Allergy Symptoms Clopidogrel Bisulfate (Clopidogrel Bisulfate 75 Mg Tab) 75 mg PO QAM [facility] Stop: 04/19/24 08:59 Dextrose (Dextrose 50% 50 Ml Syringe) 25 - 50 ml IV UD PRN; Protocol PRN Reason: Hypoglycemia Protocol Stop: 04/18/24 16:44 Glucagon (Glucagon For Inj 1 Mg Vial) 1 mg SQ UD PRN; Protocol PRN Reason: Hypoglycemia Protocol Stop: 04/18/24 16:44 Glucose (Glucose 40% Gel 15 Gm Tube) 15 - 30 gm PO UD PRN; Protocol PRN Reason: Hypoglycemia Protocol Stop: 04/18/24 16:44 Glucose (Glucose 10 Tab/Tube) 4 - 8 tab PO UD PRN; Protocol PRN Reason: Hypoglycemia Protocol Stop: 04/18/24 16:44 Guaifenesin (Guaifenesin 600 Mg Tabcr) 1,200 mg PO Q12 [facility] Stop: 04/18/24 15:04 Last Admin: 03/19/24 20:59 Dose: 1,200 mg Heparin Sodium (Porcine) (Heparin Sod 5,000 Unit/0.5 Ml Vial) 5,000 units SQ Q8 [facility] Stop: 04/18/24 21:59 Last Admin: 03/20/24 06:39 Dose: 5,000 units Hydroxyzine HCl (Hydroxyzine Hcl 25 Mg Tab) 25 mg PO Q8H PRN PRN Reason: anxiety Stop: 04/18/24 15:26 Insulin Aspart (Insulin Aspart Per Unit Charge) 0 units [facility] Stop: 04/18/24 16:29 Last Admin: 03/19/24 22:07 Dose: 17 units Insulin Glargine (Lantus Per Unit Charge) 80 units SC DAILY [facility] Stop: 04/19/24 08:59 Lidocaine (Lidocaine 5% 1 Patch) 2 patch TD HS [facility] Stop: 04/18/24 20:59 Last Admin: 03/19/24 21:00 Dose: 2 patch Losartan Potassium (Losartan Potassium 25 Mg Tab) 25 mg PO DAILY [facility] Stop: 04/19/24 08:59 Metoprolol Succinate (Metoprolol Succ 25mg Ext Rel Tab) 25 mg PO BID [facility] Stop: 04/19/24 00:00 Last Admin: 03/20/24 00:21 Dose: 25 mg Miscellaneous (Testosterone 20.25 Mg/1.25 Gram (1.62 %) Gel ~ Order Awaiting Action) 1 each N/A QS [facility] Stop: 04/19/24 00:00 Last Admin: 03/20/24 01:05 Dose: Not Given Miscellaneous (Remove Lidoderm Patch) 1 each N/A DAILY@2100 [facility] Stop: 04/18/24 20:59 Last Admin: 03/19/24 21:01 Dose: 1 each Miscellaneous (Remove Nicoderm Patch) 1 each N/A DAILY@0859 [facility] Stop: 04/19/24 08:58 Miscellaneous (Carbohydrates For Hypoglycemia ) 15 - 30 gm PO UD PRN PRN Reason: Hypoglycemia Treatment Stop: 04/18/24 16:44 Miscellaneous Information (Pharmacy Glycemic Mgmt Consult) 1 each N/A UD PRN; Protocol PRN Reason: Consult Stop: 04/18/24 14:54 Montelukast Sodium (Montelukast Sodium 10 Mg Tablet) 10 mg PO DAILY [facility] Stop: 04/19/24 08:59 Morphine Sulfate (Morphine Sulfate Ir 15 Mg Tab (Immediate Release)) 15 mg PO Q6H PRN PRN Reason: Breakthrough Pain 1-6 Stop: 04/02/24 15:26 Last Admin: 03/20/24 06:38 Dose: 15 mg Morphine Sulfate (Morphine Sulfate Cr 60 Mg Tabcr) 60 mg PO TID@0800,1400,2000 [facility] Stop: 04/02/24 19:59 Last Admin: 03/19/24 21:30 Dose: 60 mg Morphine Sulfate (Morphine Sulfate Cr 15 Mg Tabcr) 45 mg PO TID@0800,1400,2000 [facility] Stop: 04/02/24 19:59 Last Admin: 03/19/24 20:22 Dose: 45 mg Morphine Sulfate (Morphine Sulfate Cr 15 Mg Tabcr) 30 mg PO TID PRN PRN Reason: BREAKTHROUGH PAIN (7-10) Stop: 04/02/24 16:54 Last Admin: 03/20/24 02:17 Dose: 30 mg Mupirocin (Mupirocin 2% Oint 22 Gm Tube) 1 appln TOP DAILY PRN PRN Reason: flare up Stop: 04/18/24 15:26 Nicotine (Nicotine 21 Mg/24 Hr Tdsy) 1 patch TD DAILY [facility] Stop: 04/19/24 08:59 Pantoprazole Sodium (Pantoprazole 40 Mg Tab) 40 mg PO Q2D@0900 [facility] Stop: 04/18/24 16:59 Last Admin: 03/19/24 17:45 Dose: 40 mg Polyethylene Glycol (Polyethylene (Miralax) 17 Gm Pack) 17 gm PO DAILY [facility] Stop: 04/18/24 16:59 Last Admin: 03/19/24 17:17 Dose: Not Given Prednisone (Prednisone 20 Mg Tab) 40 mg PO DAILY [facility] Stop: 04/18/24 16:59 Last Admin: 03/19/24 17:19 Dose: 40 mg Rosuvastatin Calcium (Rosuvastatin Calcium 5 Mg Tab) 5 mg PO QAM [facility] Stop: 04/19/24 08:59 Torsemide (Torsemide 20 Mg Tab) 40 mg PO QAM [facility] Stop: 04/19/24 08:59 Vitamin D (Cholecalciferol 125 Mcg (5,000 Units) Tab) 125 mcg PO HS [facility] Stop: 04/19/24 20:59 (2) Chest pain Chest pain type: unspecified Qualified Code(s): R07.9 - Chest pain, unspecified (13) Hypertension Hypertension type: unspecified Qualified Code(s): I10 - Essential (primary) hypertension
[2024-03-20 08:10] LABS: BUN Creatinine Ratio 21.8 (10-20); Calcium 8.9 mg/dl (8.6-10.3); Creatinine Clr Calc Pharmacy 63.2 ml/min; Potassium 4.7 mmol/L (3.5-5.1)
[2024-03-20] MEDS: LANTUS PER UNIT CHARGE SC SCH (09:19)
[2024-03-20] MEDS: CLOPIDOGREL BISULFATE 75 MG TAB PO SCH (09:25)
[2024-03-20] MEDS: ROSUVASTATIN CALCIUM 5 MG TAB PO SCH (09:25)
[2024-03-20] MEDS: MONTELUKAST SODIUM 10 MG TABLET PO SCH (09:25)
[2024-03-20] MEDS: TORSEMIDE 20 MG TAB PO SCH (09:25)
[2024-03-20] MEDS: AZITHROMYCIN 250 MG TAB PO SCH (09:25)
[2024-03-20] MEDS: LOSARTAN POTASSIUM 25 MG TAB PO SCH (09:25)
[2024-03-20] MEDS: NICOTINE 21 MG/24 HR TDSY TD SCH (09:26)
--- NOTE | 2024-03-20 10:22 | Pharmacy Report ---
Pharmacy Glycemic Short Note 2 - Date of Service March 20, 2024 - Glycemic Short BSG Results (Last 24 hours): 03/19/24 03/19/24 03/19/24 09:57 16:12 21:48 Glucose 114 H POC Glucose 177 H 261 H 03/20/24 03/20/24 03/20/24 02:09 07:23 07:32 Glucose 197 H POC Glucose 229 H 192 H OUTPATIENT ANTIDIABETIC REGIMEN: * Toujeo 156 units daily, Novolog 20-40 units TIDM / CF 20 - per [place] [facility] notes 12/28/23 ASSESSMENT: * 63 year old admitted with COPD exacerbation/chest pain. Type 2 diabetic managed on insulin at home. PO prednisone started on admission, anticipate steroid induced hyperglycemia. Fasting BSG 192 mg/dL - patient known to glycemic service from other admissions and typically requires much less insulin during hospitalization. Will trial decreasing outpatient basal by ~50% for now. May need to adjust with ongoing steroids. Will continue tighter novolog coverage. PLAN FOR INPATIENT GLYCEMIC CONTROL: * Hold outpatient oral diabetes medications * Basal insulin * Lantus 80 units daily * Bolus insulin * NovoLog per scale ACHS or Q6hrs while NPO * Goal Range: Low 110 mg/dL - High 140 mg/dL * Correction Factor: 8 mg/dL/unit * Nutritional / Prandial insulin per carb ratio of 1 unit per 3 grams CHO consumed
--- NOTE | 2024-03-20 13:41 | Cardiology Consultation ---
Date of Consultation March 20, 2024 Assessment & Plan (1) Troponin level elevated: (2) Acute exacerbation of chronic obstructive pulmonary disease: Plan Case has been discussed with Dr. Roblero. Further recommendations regarding plan of care as per his assessment. I spent a total of 40 minutes on the date of service in preparation, delivery, documentation of the care provided to the patient excluding any time spent in the performance of separately billed services. LORRAINE Pulliam [facility] Supervising Physician Co-Signing Physician Notes Attending Physician: Pt seen and examined with [facility] staff Concur with observations and plans 63 yo man presenting with dyspnea + Hypoxia PCR + for enterovirus Hx of COPD on home O2 + Known CAD PCI to LAD - 02/2022 Restenosis - 09/2022 CABG - SCHMITT to LAD (off pump)- 10/2022 ([place] Bob [place] [facility] [place] [id number]- RBBB - no active ischemic changes CXR: 03-19-2024 cardiomegaly. S/P sternotomy. No acute process ECHO - 09-21-2023 LVEF 55-60% Small anterior WMA with HK of mid and apical segment of anterior wall Mild concentric LVH No major valvular disease No effusion Reason for consults - chest pain/ elevated troponin Troponin : 22.3, peak 62.9 - now 56. Plans: * Patient w/chest pain * Known CAD * Recent revascularization * Troponin elevation likely secondary to demand ischemia * Plans for nuclear stress test as an outpt once he recovers from this respiratory infection * Check BP across arms and document * Chest pain currently is related to coughing - has active enterovirus infection * Pt is a chronic smoker - cannot bring up phlegm and has been coughing consistently for several days * Continue ASA 81 mg po per day * Continue Plavix 75 mg po per day * Continue Crestor 5 mg po per day * Recheck LDL as an outpt * SBP 159 mmHg * Increase Losartan to 100 mg po per day * STOP Torsemide * Lasix 100 mg IV x 1 * Will check IVC size to confirm - patient appears to be moderately volume overloaded * May consider alternatives to Amlodipine given LE edema * Patient appears to have significant proteinuria - please quantify - question if patient is nephrotic from long-standing DM * Concerns about sternal non-union - sternum appeared to be stable * 61 min spent addressing challenges, educating and advancing daily plan of care Ismael Roblero History of Present Illness Reason for Consultation: chest pain, elevated troponin Requesting Physician: [facility] Attending Physician: Donnell Marcos MD History of Present Illness HPI: Patient is a 63 year old male with PMHx as noted below that presented to the ER on 03/19/2024 with complaints of shortness of breath. O2 sats were 85% on 3L O2, PCR Positive for enterovirus/rhinovirus and therefore he was admitted for further management. Cardiology has now been consulted for complaints of chest pain and elevated troponin. Past Medical and Surgical History: 1. Chronic back pain, failed back syndrome, narcotic dependent, high dose. Pain medications managed by [facility]. 2. Low HDL cholesterol - dyslipidemia with poor statin tolerance. 3. Chronic obstructive sleep apnea with nocturnal CPAP and O2 supplementation. 4. Secondary polycythemia with routine phlebotomy. 5. Coronary artery disease a. Status post drug-eluting stent proximal LAD February 17, 2022. b. Acute coronary syndrome, October 01, 2022, NSTEMI, restenosis of the LAD, statu spost PCI with a drug-eluting stent though with little change in patient's symptom pattern c. Patient hospitalized last initially at [facility] then [facility] November 09, 2022 to December 09, 2022 following NSTEMI, undergoing off pump coronary artery bypass grafting x1 with an isolated left internal mammary artery to the LAD on November 14, [address] Bob. Postoperative course complicated by pain management issues as well as ? paroxysmal atrial fibrillation on telemetry leading to transient use of amiodarone 6. Patient with past poor tolerance to Brilinta. 7. Conduction system disease with bifascicular block on EKG, right bundle-branch block, left anterior fascicular block. 8. Chronic diastolic heart failure 9. Diabetes mellitus, insulin requiring, with polyneuropathy. 10. Longstanding tobacco use 11. COPD/emphysema 12. Moderate persistent asthma 13. Respiratory bronchiolitis interstitial lung disease 14. Hypertension 15. History of pancreatitis. 16. BPH 17. Impotence 18. GERD, prior endoscopy with reflux esophagitis, gastritis 19. Generalized anxiety disorder 20. Depression 21. Multiple prior back surgeries 22. Colonoscopy with polypectomy 23. Cholecystectomy 24. Left shoulder surgery 25. Right elbow surgery 26. Remove uvula for sleep apnea 27. Status post appendectomy 28. Tonsillectomy EKG 04/19/23: ST with left axis deviation. Right BBB rate 109bpm. Unchanged from prior study 09/21/2023 Echocardiogram on 09/21/2023 LVEF 55-60% mild concentric LVH small sized anterior wall motion abnormality with hypokinesis of the apical and mid segments of the anterior wall. Grade II diastolic dysfunction. No significant valvular disease HS Troponin 22.3--29.2--62.9--56.0 Cr 1.56 (baseline 1-1.6) Chest xray 03/19/24: Cardiomegaly without acute process Echo pending Allergies Allergy/AdvReac Type Severity Reaction Status Date / Time clarithromycin Allergy Severe DAMAGED Verified 03/19/24 13:21 LIVER PER PT-REQUIRED HOSPITALIZATION latex Allergy Intermediate skin Verified 03/19/24 13:21 irritation/rash ticagrelor [From Brilinta] AdvReac Severe sob Verified 03/19/24 13:21 adhesive AdvReac Mild SKIN Verified 03/19/24 13:21 RASH-WITH SOME TAPES dulaglutide AdvReac Unknown hx Verified 03/19/24 13:21 pancreatitis exenatide AdvReac Unknown hx Verified 03/19/24 13:21 pancreatitis liraglutide AdvReac Unknown hx Verified 03/19/24 13:21 pancreatitis semaglutide AdvReac Unknown hx Verified 03/19/24 13:21 pancreatitis Home Medications Medication Instructions Recorded Confirmed Type albuterol sulfate 90 mcg/actuation 2 puff inhalation Q6H PRN Wheezing 06/26/18 03/19/24 History aerosol inhaler Oxygen Home #1 ea 04/30/19 03/19/24 History aspirin 81 mg tablet,delayed 81 mg PO HS 03/12/20 03/19/24 History release blood-glucose meter,continuous 02/03/21 03/19/24 History (Dexcom G6 Field Service Coordinator) blood-glucose transmitter (Dexcom 02/03/21 03/19/24 History G6 Transmitter device) cetirizine 10 mg capsule (Zyrtec) 5 mg PO DAILY PRN Allergy Symptoms 03/05/21 03/19/24 History hydroxyzine pamoate 25 mg capsule 25 mg PO Q8H PRN anxiety 5 days 06/16/21 03/19/24 Rx (Vistaril) #15 caps morphine 100 mg tablet,extended 100 mg PO TID 10/12/21 03/19/24 History release clopidogrel 75 mg tablet (Plavix) 75 mg PO QAM 05/16/22 03/19/24 History linaclotide 145 mcg capsule 145 mcg PO DAILY PRN Constipation 08/01/22 03/19/24 History (Linzess) morphine 30 mg tablet,extended 30 mg PO Q8H PRN breakthrough pain 08/01/22 03/19/24 History release 6-10 blood sugar diagnostic #900 ea 08/19/22 03/19/24 Rx morphine 15 mg immediate release 15 mg PO Q6H PRN Breakthrough Pain 09/13/22 03/19/24 History tablet 1-6 rosuvastatin 5 mg tablet (Crestor) 5 mg PO QAM 11/08/22 03/19/24 History montelukast 10 mg tablet 10 mg PO DAILY pt request 12/22/22 03/19/24 History pantoprazole 40 mg tablet,delayed 40 mg PO Q OTHER DAY Heartburn 12/22/22 03/19/24 History release blood-glucose meter (Accu-Chek #1 ea 12/29/22 03/19/24 Rx Guide Glucose Meter) blood-glucose meter (OneTouch #1 ea 12/29/22 03/19/24 Rx Ultra2 Meter) blood sugar diagnostic (OneTouch #1,500 ea 01/04/23 03/19/24 Rx Ultra Test strips) Dexcom G6 Sensor (blood-glucose #3 ea 01/26/23 03/19/24 Rx sensor) losartan 25 mg tablet 25 mg PO DAILY #90 tabs 03/24/23 03/19/24 Rx Accu-Chek Guide test strips (blood #400 ea 04/19/23 03/19/24 Rx sugar diagnostic) insulin aspart U-100 100 unit/mL See Rx Instructions subcut WM 90 07/13/23 03/19/24 Rx (3 mL) subcutaneous pen (Novolog days #120 mL FlexPen U-100 Insulin aspart) cholecalciferol (vitamin D3) 25 5,000 unit PO HS 07/18/23 03/19/24 History mcg (1,000 unit) capsule (Vitamin D3) clindamycin phosphate 1 % lotion 1 applic topical DAILY PRN flare up 09/20/23 03/19/24 History insulin glargine U-300 conc 300 158 unit subcut QAM 09/20/23 03/19/24 History unit/mL (1.5 mL) subcutaneous pen (Toujeo SoloStar U-300 Insulin) mupirocin 2 % topical ointment 1 applic topical DAILY PRN flare up 09/20/23 03/19/24 History nicotine 21 mg/24 hr daily 1 patch transdermal DAILY 09/20/23 03/19/24 History transdermal patch glucagon HCl 1 mg solution for 1 mg subcut Q20M PRN hypoglycemia 10/06/23 03/19/24 Rx injection (Glucagon (HCl) #1 ea Emergency Kit) blood-glucose meter (OneTouch #8 ea 02/05/24 03/19/24 Rx Verio Flex Meter) testosterone 2 pump topical HS #225 grams 02/05/24 03/19/24 Rx blood sugar diagnostic (OneTouch #300 ea 02/12/24 03/19/24 Rx Verio test strips) ipratropium 0.5 mg-albuterol 3 mg 3 ml inhalation Q6H PRN sob or 03/19/2403/19 History (2.5 mg base)/3 mL nebulization wheezing soln lidocaine 5 % topical patch 2 patch topical HS 03/19/24 03/19/24 History metoprolol succinate 25 mg 25 mg PO BID 03/19/24 03/19/24 History tablet,extended release 24 hr (Toprol XL) torsemide 20 mg tablet 40 mg PO QAM 03/19/24 03/19/24 History Patient History Medical History Acute on chronic diastolic (congestive) heart failure Hematuria, gross Testicle swelling Acute kidney injury superimposed on CKD Bifascicular block Medical cannabis use Transient ischemic attack (TIA) On home oxygen therapy Migraines Diverticular disease History of SCC (squamous cell carcinoma) of skin History of basal cell carcinoma Obesity Post traumatic stress disorder History of acute pancreatitis Irritable bowel syndrome (IBS) GERD (gastroesophageal reflux disease) Surgical History History of coronary artery bypass graft History of heart artery stent History of cardiac cath S/P cholecystectomy History of tonsillectomy History of uvulopalatopharyngoplasty History of surgery History of repair of rotator cuff History of colonoscopy History of ERCP History of esophagogastroduodenoscopy (EGD) History of cardiac cath Fusion of spine History of appendectomy History of back surgery Family History Other COPD (chronic obstructive pulmonary disease) Cancer Diabetes Heart disease Hypertension Social History Smoking Status: Current every day smoker Tobacco Type: Cigarettes packs per day: 1; Cigarettes Per Day: 1 PPD; Second Hand Exposure: Yes; Do You Dip or Chew Tobacco: No; Hx Alcohol Use: No Hx Substance Use: Yes Last Used Substance: Days (ago) Last Used Substance Other:: 03/15 Substance Use Type Other:: MEDICAL MARIJUANA Preferred Language: Sami Communication Ability: Effective Visual Impairment: No Limitations Code Clerk Required: No Beliefs That Will Affect Care: None marital status: Current Living Situation: Spouse 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 Roblero Obese JVP 14 cmH20 S1S2 2/6 systolic murmur Bilateral wheezing + mild abdominal wall edema + bilateral LE edema Sternum - stable No major protrusion of left clavicle - not tender Results & Data Vital Signs (Past 12 Hours) Vital Signs Temp Pulse Pulse Resp BP Pulse Ox O2 Del Method 03/20/24 13:18 91 H 18 92 Room Air 03/20/24 10:25 36.6 C 87 20 159/50 H 94 Nasal Cannula 03/20/24 08:00 71 03/20/24 07:35 36.5 C 85 22 164/75 H 96 Nasal Cannula 03/20/24 07:06 74 16 96 CPAP 03/20/24 02:42 36.7 C 88 20 157/67 H 94 Nasal CPAP 03/20/24 02:28 98 H 13 98 O2 Flow Rate 03/20/24 13:18 03/20/24 10:25 3 03/20/24 08:00 03/20/24 07:35 3 03/20/24 07:06 3 03/20/24 02:42 03/20/24 02:28 2 Laboratory Results Cardiac Enzymes 03/19/24 03/19/24 Range/Units 18:30 23:13 Troponin I High Sens 62.9 H* D 56.0 H* (0-20) pg/ml CBC 03/20/24 Range/Units 07:23 WBC 11.67 H (4.8-10.8) K/ul RBC 5.34 (4.70-6.10) M/uL Hgb 13.1 L (14.0-18.0) g/dl Hct 42.7 (42.0-52.0) % Plt Count 285 (130-400) K/uL Comprehensive Metabolic Panel 03/20/24 Range/Units 07:23 Sodium 134 L (136-145) mmol/L Potassium 4.7 (3.5-5.1) mmol/L Chloride 96 L (98-107) mmol/L Carbon Dioxide 31 (21-32) mmol/L BUN 34 H (6-23) mg/dl Creatinine 1.56 H (0.6-1.4) mg/dl Glucose 197 H (70-99(Fasting)) mg/dl Calcium 8.9 (8.6-10.3) mg/dl Intake and Output 03/19/24 03/20/24 03/20/24 22:59 06:59 14:59 Intake Total 300 / 450 150 / 450 960 / 960 Balance 300 / 450 150 / 450 960 / 960 Intake: Oral 300 / 450 150 / 450 960 / 960 Other: # Unmeasured Voids 2 Weight 125.6 kg 125.5 kg Weight Measurement Method Built in [facility] Medications Administered Current Inpatient Medications Acetaminophen (Acetaminophen 325 Mg Tab) 650 mg PO Q4H PRN PRN Reason: Pain or Fever Stop: 04/18/24 15:26 Albuterol (Albut/Ipratrop 3mg/0.5mg Neb 3 Ml Vial) 3 ml NEB Q6R [facility]; Protocol Stop: 04/18/24 15:04 Last Admin: 03/20/24 13:18 Dose: 3 ml Albuterol (Albuterol Hfa 8 Gm Inhaler) 2 puffs INH Q6H PRN PRN Reason: Wheezing Stop: 04/18/24 15:26 Last Admin: 03/19/24 21:56 Dose: 2 puffs Amlodipine Besylate (Amlodipine Besylate 5 Mg Tab) 2.5 mg PO [facility] Stop: 04/18/24 23:04 Last Admin: 03/20/24 00:22 Dose: 2.5 mg Aspirin (Aspirin 81 Mg Ectab) 81 mg PO [facility] Stop: 04/18/24 20:59 Last Admin: 03/19/24 20:59 Dose: 81 mg Azithromycin ([facility] 250 Mg Tab) [facility]: 03/25/24 08:59 Last Admin: 03/20/24 09:25 Dose: 250 mg Bisacodyl (Bisacodyl 5 Mg Tabec) 5 mg PO DAILY PRN PRN Reason: Constipation Stop: 04/18/24 16:58 Cetirizine HCl (Cetirizine Hcl 10 Mg Tablet) 5 mg PO DAILY PRN PRN Reason: Allergy Symptoms Clopidogrel Bisulfate (Clopidogrel Bisulfate 75 Mg Tab) 75 mg PO QAM [facility] Stop: 04/19/24 08:59 Last Admin: 03/20/24 09:25 Dose: 75 mg Dextrose (Dextrose 50% 50 Ml Syringe) 25 - 50 ml IV UD PRN; Protocol PRN Reason: Hypoglycemia Protocol Stop: 04/18/24 16:44 Furosemide (Furosemide 40 Mg/4 Ml Vial) 100 mg IV ONE ONE Stop: 03/20/24 14:59 Glucagon (Glucagon For Inj 1 Mg Vial) 1 mg SQ UD PRN; Protocol PRN Reason: Hypoglycemia Protocol Stop: 04/18/24 16:44 Glucose (Glucose 40% Gel 15 Gm Tube) 15 - 30 gm PO UD PRN; Protocol PRN Reason: Hypoglycemia Protocol Stop: 04/18/24 16:44 Glucose (Glucose 10 Tab/Tube) 4 - 8 tab PO UD PRN; Protocol PRN Reason: Hypoglycemia Protocol Stop: 04/18/24 16:44 Guaifenesin (Guaifenesin 600 Mg Tabcr) 1,200 mg PO Q12 [facility] Stop: 04/18/24 15:04 Last Admin: 03/20/24 09:24 Dose: 1,200 mg Heparin Sodium (Porcine) (Heparin Sod 5,000 Unit/0.5 Ml Vial) 5,000 units SQ Q8 [facility] Stop: 04/18/24 21:59 Last Admin: 03/20/24 13:31 Dose: 5,000 units Hydroxyzine HCl (Hydroxyzine Hcl 25 Mg Tab) 25 mg PO Q8H PRN PRN Reason: anxiety Stop: 04/18/24 15:26 Last Admin: 03/20/24 14:51 Dose: 25 mg Insulin Aspart (Insulin Aspart Per Unit Charge) 0 units SC ACHS [facility] Stop: 04/18/24 16:29 Last Admin: 03/20/24 13:30 Dose: 22 units Insulin Glargine (Lantus Per Unit Charge) 80 units SC DAILY [facility] Stop: 04/19/24 08:59 Last Admin: 03/20/24 09:19 Dose: 80 units Lidocaine (Lidocaine 5% 1 Patch) 2 patch TD HS [facility] Stop: 04/18/24 20:59 Last Admin: 03/19/24 21:00 Dose: 2 patch Losartan Potassium (Losartan Potassium 50 Mg Tab) 100 mg PO DAILY [facility] Stop: 04/20/24 08:59 Metoprolol Succinate (Metoprolol Succ 25mg Ext Rel Tab) 25 mg PO BID [facility] Stop: 04/19/24 00:00 Last Admin: 03/20/24 09:23 Dose: 25 mg Miscellaneous (Testosterone 20.25 Mg/1.25 Gram (1.62 %) Gel ~ Order Awaiting Action) 1 each N/A QS [facility] Stop: 04/19/24 00:00 Last Admin: 03/20/24 10:18 Dose: Not Given Miscellaneous (Remove Lidoderm Patch) 1 each N/A DAILY@2100 [facility] Stop: 04/18/24 20:59 Last Admin: 03/19/24 21:01 Dose: 1 each Miscellaneous (Remove Nicoderm Patch) 1 each N/A DAILY@0859 [facility] Stop: 04/19/24 08:58 Last Admin: 03/20/24 09:26 Dose: 1 each Miscellaneous (Carbohydrates For Hypoglycemia ) 15 - 30 gm PO UD PRN PRN Reason: Hypoglycemia Treatment Stop: 04/18/24 16:44 Miscellaneous Information (Pharmacy Glycemic Mgmt Consult) 1 each N/A UD PRN; Protocol PRN Reason: Consult Stop: 04/18/24 14:54 Montelukast Sodium (Montelukast Sodium 10 Mg Tablet) 10 mg PO DAILY [facility] Stop: 04/19/24 08:59 Last Admin: 03/20/24 09:25 Dose: 10 mg Morphine Sulfate (Morphine Sulfate Ir 15 Mg Tab (Immediate Release)) 15 mg PO Q6H PRN PRN Reason: Breakthrough Pain 1-6 Stop: 04/02/24 15:26 Last Admin: 03/20/24 12:53 Dose: 15 mg Morphine Sulfate (Morphine Sulfate Cr 60 Mg Tabcr) 60 mg PO TID@0800,1400,1999 [facility] Stop: 04/02/24 19:59 Last Admin: 03/20/24 14:51 Dose: 60 mg Morphine Sulfate (Morphine Sulfate Cr 15 Mg Tabcr) 45 mg PO TID@0800,1400,1999 [facility] Stop: 04/02/24 19:59 Last Admin: 03/20/24 14:52 Dose: 45 mg Morphine Sulfate (Morphine Sulfate Cr 15 Mg Tabcr) 30 mg PO TID PRN PRN Reason: BREAKTHROUGH PAIN (7-10) Stop: 04/02/24 16:54 Last Admin: 03/20/24 12:09 Dose: 30 mg Mupirocin (Mupirocin 2% Oint 22 Gm Tube) 1 appln TOP DAILY PRN PRN Reason: flare up Stop: 04/18/24 15:26 Nicotine (Nicotine 21 Mg/24 Hr Tdsy) 1 patch TD DAILY [facility] Stop: 04/19/24 08:59 Last Admin: 03/20/24 09:26 Dose: 1 patch Pantoprazole Sodium (Pantoprazole 40 Mg Tab) 40 mg PO Q2D@0900 [facility] Stop: 04/18/24 16:59 Last Admin: 03/19/24 17:45 Dose: 40 mg Polyethylene Glycol (Polyethylene (Miralax) 17 Gm Pack) 17 gm PO DAILY [facility] Stop: 04/18/24 16:59 Last Admin: 03/20/24 09:40 Dose: 17 gm Prednisone (Prednisone 20 Mg Tab) 40 mg PO DAILY [facility] Stop: 04/18/24 16:59 Last Admin: 03/20/24 09:24 Dose: 40 mg Rosuvastatin Calcium (Rosuvastatin Calcium 5 Mg Tab) 5 mg PO QAM [facility] Stop: 04/19/24 08:59 Last Admin: 03/20/24 09:25 Dose: 5 mg Vitamin D (Cholecalciferol 125 Mcg (5,000 Units) Tab) 125 mcg PO [facility] Stop: 04/19/24 20:59
[2024-03-20] MEDS: hydrOXYzine HCl 25 MG TAB PO PRN (14:51)
[2024-03-20] MEDS: FUROSEMIDE 40 MG/4 ML VIAL IV ONE (15:40)
[2024-03-20] MEDS: CHOLECALCIFEROL 125 MCG (5,000 UNITS) TAB PO SCH (20:16)
[2024-03-20] MEDS: TESTOSTERONE TOP SCH (22:35)
[2024-03-20] MEDS: [UNRECOGNIZED DRUG - OTHER] TOP SCH (22:35)
[2024-03-21] MEDS ORDERED: methylPREDNISolone 125 MG/2 ML VIAL IV STA (01:29)
[2024-03-21] MEDS ORDERED: CHLORASEPTIC (PHENOL) 1.4% SOLN 180 ML BTL MT PRN (01:34)
[2024-03-21] MEDS: COUGH DROP (SUGAR FREE) LOZ 24 LOZ/1 BOX BUCCAL STA (01:46)
[2024-03-21] MEDS: methylPREDNISolone 40 MG in SYRINGE 0 ML IV STA (02:24)
[2024-03-21 07:28] LABS: Hematocrit (blood only) 40.9 % (42.0-52.0); Mean Corpuscular Hemoglobin 25.2 pg (25.0-34.0); Mean Corpuscular Hgb Conc 31.8 g/dL (32.0-36.0); Mean Corpuscular Volume 79.3 fL (80.0-100.0); Platelet Count 311 K/uL (130-400); RDW Coefficient of Variation 17.4 % (11.5-14.5); RDW Standard Deviation 50.3 fL (36.4-46.3); Red Blood Count 5.16 M/uL (4.70-6.10); White Blood Count 12.93 K/ul (4.8-10.8)
--- NOTE | 2024-03-21 07:38 | Cardiology Progress Note ---
Date of Service March 21, 2024 Assessment & Plan (1) Chronic hypoxic respiratory failure: Plan Pt seen and examined with [facility] staff Concur with observations and plans 63 yo man presenting with dyspnea + Hypoxia PCR + for enterovirus Hx of COPD on home O2 + Known CAD PCI to LAD - 02/2022 Restenosis - 09/2022 CABG - SCHMITT to LAD (off pump)- 10/2022 ([place] [facility] [place] [id number]- RBBB - no active ischemic changes CXR: 03-19-2024 cardiomegaly. S/P sternotomy. No acute process ECHO - 09-21-2023 LVEF 55-60% Small anterior WMA with HK of mid and apical segment of anterior wall Mild concentric LVH No major valvular disease No effusion Reason for consults - chest pain/ elevated troponin Troponin : 22.3, peak 62.9 - 56. Plans: * Patient w/chest pain * Known CAD * Recent revascularization * Troponin elevation likely secondary to demand ischemia * Plans for nuclear stress test as an outpt once he recovers from this respiratory infection * Check BP across arms and document * Chest pain currently is related to coughing - has active enterovirus infection * Pt is a chronic smoker - cannot bring up phlegm and has been coughing consistently for several days * Continue ASA 81 mg po per day * Continue Plavix 75 mg po per day * Continue Crestor 5 mg po per day * Recheck LDL as an outpt * SBP 145 mmHg * Continue Losartan 100 mg po per day * STOP Torsemide * Lasix 100 mg IV x 1 on 03/21/2024 * IVC size - difficult to evaluate; JVP appeared to be 14 cmH20 * May consider alternatives to Amlodipine given LE edema * Patient appears to have significant proteinuria - please quantify - question if patient is nephrotic from long-standing DM * Pt voiced concerns about sternal non-union - sternum appeared to be stable * Please call back with any additional * 51 min spent addressing challenges, educating and advancing daily plan of care Admission and Anticipated Discharge Date Admission Date: March 19, 2024 Subjective Events Overnight: * No events overnight * No telemetry events Subjective: * No chest pain reported Review of Systems Review of Systems: All systems reviewed & are unremarkable except as noted in HPI & below Physical Exam Physical Exam: As documented by Dr. Roblero Obese JVP 14 cmH20 S1S2 2/6 systolic murmur Bilateral wheezing + mild abdominal wall edema + bilateral LE edema Sternum - stable No major protrusion of left clavicle - not tender Results & Data Vital Signs (Past 12 Hours) Vital Signs Temp Pulse Pulse Resp BP Pulse Ox O2 Del Method 03/21/24 07:17 88 19 99 CPAP 03/21/24 07:17 88 19 99 03/21/24 02:57 36.7 C 89 20 169/72 H 98 Nasal CPAP 03/21/24 01:53 36.8 C 03/21/24 01:40 96 H 9 L 98 03/21/24 01:13 85 9 L 98 CPAP 03/20/24 23:24 107 H 03/20/24 23:16 95 H 14 99 03/20/24 22:55 37 C 100 H 20 179/74 H 93 Room Air 03/20/24 20:21 90 20 95 Nasal Cannula 03/20/24 20:05 Nasal Cannula, CPAP O2 Flow Rate 03/21/24 07:17 03/21/24 07:17 03/21/24 02:57 03/21/24 01:53 03/21/24 01:40 3 03/21/24 01:13 3 03/20/24 23:24 03/20/24 23:16 2 03/20/24 22:55 03/20/24 20:21 3 03/20/24 20:05 4 Laboratory Results CBC 03/21/24 Range/Units 06:42 WBC 12.93 H (4.8-10.8) K/ul RBC 5.16 (4.70-6.10) M/uL Hgb 13.0 L (14.0-18.0) g/dl Hct 40.9 L (42.0-52.0) % Plt Count 311 (130-400) K/uL Comprehensive Metabolic Panel 03/21/24 03/21/24 Range/Units 06:42 09:52 Sodium 130 L (136-145) mmol/L Potassium 5.6 H 5.3 H (3.5-5.1) mmol/L Chloride 93 L (98-107) mmol/L Carbon Dioxide 30 (21-32) mmol/L BUN 49 H (6-23) mg/dl Creatinine 1.60 H (0.6-1.4) mg/dl Glucose 299 H (70-99(Fasting)) mg/dl Calcium 9.2 (8.6-10.3) mg/dl Intake and Output 03/20/24 03/21/24 03/21/24 22:59 06:59 14:59 Intake Total 350 / 1560 250 / 1560 60 / 60 Output Total 1100 / 1500 400 / 1500 500 / 500 Balance -750 / 60 -150 / 60 -440 / -440 Intake: IV 60 / 60 Calcium Gluconate 1,000 mg In 60 / 60 60 ml @ 240 mls/hr IV NOW STA Rx#:[id number] Oral 350 / 1560 250 / 1560 Output: Urine 1100 / 1500 400 / 1500 500 / 500 Other: Weight 125.4 kg Diagnostic Findings ECHOcardiogram: 03-20-2024 LVEF 60-65% LVH - concentric - mild AV - Mildly calcified - Mild TR - Trace Est PASP 37 mmHg IVC not well visualized Medications Administered Current Inpatient Medications Acetaminophen (Acetaminophen 325 Mg Tab) 650 mg PO Q4H PRN PRN Reason: Pain or Fever Stop: 04/18/24 15:26 Albuterol (Albut/Ipratrop 3mg/0.5mg Neb 3 Ml Vial) 3 ml NEB Q6R [facility]; Protocol Stop: 04/18/24 15:04 Last Admin: 03/21/24 07:17 Dose: 3 ml Albuterol (Albuterol Hfa 8 Gm Inhaler) 2 puffs INH Q6H PRN PRN Reason: Wheezing Stop: 04/18/24 15:26 Last Admin: 03/19/24 21:56 Dose: 2 puffs Amlodipine Besylate (Amlodipine Besylate 5 Mg Tab) 2.5 mg PO HS [facility] Stop: 04/18/24 23:04 Last Admin: 03/20/24 20:17 Dose: 2.5 mg Aspirin (Aspirin 81 Mg Ectab) 81 mg PO HS [facility] Stop: 04/18/24 20:59 Last Admin: 03/20/24 20:17 Dose: 81 mg Azithromycin (Azithromycin 250 Mg Tab) 250 mg PO [facility] Stop: 03/25/24 08:59 Last Admin: 03/20/24 09:25 Dose: 250 mg Bisacodyl (Bisacodyl 5 Mg Tabec) 5 mg PO DAILY PRN PRN Reason: Constipation Stop: 04/18/24 16:58 Cetirizine HCl (Cetirizine Hcl 10 Mg Tablet) 5 mg PO DAILY PRN PRN Reason: Allergy Symptoms Clopidogrel Bisulfate (Clopidogrel Bisulfate 75 Mg Tab) 75 mg PO QAM [facility] Stop: 04/19/24 08:59 Last Admin: 03/20/24 09:25 Dose: 75 mg Dextrose (Dextrose 50% 50 Ml Syringe) 25 - 50 ml IV UD PRN; Protocol PRN Reason: Hypoglycemia Protocol Stop: 04/18/24 16:44 Glucagon (Glucagon For Inj 1 Mg Vial) 1 mg SQ UD PRN; Protocol PRN Reason: Hypoglycemia Protocol Stop: 04/18/24 16:44 Glucose (Glucose 40% Gel 15 Gm Tube) 15 - 30 gm PO UD PRN; Protocol PRN Reason: Hypoglycemia Protocol Stop: 04/18/24 16:44 Glucose (Glucose 10 Tab/Tube) 4 - 8 tab PO UD PRN; Protocol PRN Reason: Hypoglycemia Protocol Stop: 04/18/24 16:44 Guaifenesin (Guaifenesin 600 Mg Tabcr) 1,200 mg PO Q12 [facility] Stop: 04/18/24 15:04 Last Admin: 03/20/24 20:17 Dose: 1,200 mg Heparin Sodium (Porcine) (Heparin Sod 5,000 Unit/0.5 Ml Vial) 5,000 units SQ Q8 [facility] Stop: 04/18/24 21:59 Last Admin: 03/21/24 06:41 Dose: 5,000 units Hydroxyzine HCl (Hydroxyzine Hcl 25 Mg Tab) 25 mg PO Q8H PRN PRN Reason: anxiety Stop: 04/18/24 15:26 Last Admin: 03/20/24 14:51 Dose: 25 mg Insulin Aspart (Insulin Aspart Per Unit Charge) 0 units SC ACHS [facility] Stop: 04/18/24 16:29 Last Admin: 03/20/24 22:02 Dose: 15 units Insulin Glargine (Lantus Per Unit Charge) 120 units SC DAILY [facility] Stop: 04/20/24 08:59 Lidocaine (Lidocaine 5% 1 Patch) 2 patch TD HS [facility] Stop: 04/18/24 20:59 Last Admin: 03/20/24 20:16 Dose: 2 patch Losartan Potassium (Losartan Potassium 50 Mg Tab) 100 mg PO DAILY [facility] Stop: 04/20/24 08:59 Metoprolol Succinate (Metoprolol Succ 25mg Ext Rel Tab) 25 mg PO BID [facility] Stop: 04/19/24 00:00 Last Admin: 03/20/24 20:17 Dose: 25 mg Miscellaneous (Remove Lidoderm Patch) 1 each N/A DAILY@2100 [facility] Stop: 04/18/24 20:59 Last Admin: 03/20/24 20:18 Dose: 1 each Miscellaneous (Remove Nicoderm Patch) 1 each N/A DAILY@0859 [facility] Stop: 04/19/24 08:58 Last Admin: 03/20/24 09:26 Dose: 1 each Miscellaneous (Carbohydrates For Hypoglycemia ) 15 - 30 gm PO UD PRN PRN Reason: Hypoglycemia Treatment Stop: 04/18/24 16:44 Miscellaneous (Continuous Glucose Monitor) 1 each N/A DAILY [facility] Stop: 04/20/24 08:59 Miscellaneous Information (Pharmacy Glycemic Mgmt Consult) 1 each N/A UD PRN; Protocol PRN Reason: Consult Stop: 04/18/24 14:54 Montelukast Sodium (Montelukast Sodium 10 Mg Tablet) 10 mg PO DAILY [facility] Stop: 04/19/24 08:59 Last Admin: 03/20/24 09:25 Dose: 10 mg Morphine Sulfate (Morphine Sulfate Ir 15 Mg Tab (Immediate Release)) 15 mg PO Q6H PRN PRN Reason: Breakthrough Pain 1-6 Stop: 04/02/24 15:26 Last Admin: 03/21/24 01:00 Dose: 15 mg Morphine Sulfate (Morphine Sulfate Cr 60 Mg Tabcr) 60 mg PO TID@0800,1400,1999 [facility] Stop: 04/02/24 19:59 Last Admin: 03/20/24 20:07 Dose: 60 mg Morphine Sulfate (Morphine Sulfate Cr 15 Mg Tabcr) 45 mg PO TID@0800,1400,1999 [facility] Stop: 04/02/24 19:59 Last Admin: 03/20/24 20:07 Dose: 45 mg Morphine Sulfate (Morphine Sulfate Cr 15 Mg Tabcr) 30 mg PO TID PRN PRN Reason: BREAKTHROUGH PAIN (7-10) Stop: 04/02/24 16:54 Last Admin: 03/21/24 01:00 Dose: 30 mg Mupirocin (Mupirocin 2% Oint 22 Gm Tube) 1 appln TOP DAILY PRN PRN Reason: flare up Stop: 04/18/24 15:26 Nicotine (Nicotine 21 Mg/24 Hr Tdsy) 1 patch TD DAILY [facility] Stop: 04/19/24 08:59 Last Admin: 03/20/24 09:26 Dose: 1 patch Pantoprazole Sodium (Pantoprazole 40 Mg Tab) 40 mg PO Q2D@0900 [facility] Stop: 04/18/24 16:59 Last Admin: 03/19/24 17:45 Dose: 40 mg Phenol (Chloraseptic (Phenol) 1.4% Soln 180 Ml Btl) 1 sprays MT Q4H PRN PRN Reason: Sore Throat Stop: 04/20/24 01:33 Polyethylene Glycol (Polyethylene (Miralax) 17 Gm Pack) 17 gm PO DAILY [facility] Stop: 04/18/24 16:59 Last Admin: 03/20/24 09:40 Dose: 17 gm Prednisone (Prednisone 20 Mg Tab) 40 mg PO DAILY [facility] Stop: 04/18/24 16:59 Last Admin: 03/20/24 09:24 Dose: 40 mg Rosuvastatin Calcium (Rosuvastatin Calcium 5 Mg Tab) 5 mg PO QAM [facility] Stop: 04/19/24 08:59 Last Admin: 03/20/24 09:25 Dose: 5 mg Testosterone (Testosterone Gel 20.25mg/Pump) 1 appln TOP HS [facility] Stop: 04/19/24 20:59 Last Admin: 03/20/24 22:35 Dose: 1 appln Vitamin D (Cholecalciferol 125 Mcg (5,000 Units) Tab) 125 mcg PO HS [facility] Stop: 04/19/24 20:59 Last Admin: 03/20/24 20:16 Dose: 125 mcg
[2024-03-21 07:49] LABS: BUN Creatinine Ratio 30.6 (10-20); Calcium 9.2 mg/dl (8.6-10.3); Creatinine Clr Calc Pharmacy 61.6 ml/min; Magnesium 2.4 mg/dl (1.7-2.4); Phosphorus 3.9 mg/dl (2.5-4.9); Potassium 5.6 mmol/L (3.5-5.1)
[2024-03-21] MEDS: LANTUS PER UNIT CHARGE SC SCH (08:19)
[2024-03-21] MEDS: Continuous Glucose Monitor SCH (09:01)
[2024-03-21] MEDS: LOSARTAN POTASSIUM 50 MG TAB PO SCH (09:01)
--- NOTE | 2024-03-21 09:39 | Hospitalist Progress Note ---
Date of Service March 21, 2024 Assessment & Plan (1) Troponin level elevated: (2) Chest pain: (3) URI (upper respiratory infection): (4) Chronic hypoxic respiratory failure: (5) Acute exacerbation of chronic obstructive pulmonary disease: (6) Sleep apnea: (7) S/P CABG x 1: (8) Chronic pain syndrome: (9) Opioid dependence: (10) Tobacco abuse: (11) Obesity: (12) Type 2 diabetes mellitus with insulin therapy: (13) Hypertension: (14) Chronic kidney disease (CKD): Plan This is a 63yo M with a PMH of PMH of COPD, ongoing tobacco use, DM type II, hx of NSTEMI (10/2022 CABG), chronic pain syndrome on narcotics, diabetic polyneuropathy, CKD stage III, dyslipidemia, COPD, AR (on CPAP), pulmonary emphysema, chronic diastolic congestive HF, HTN, bifascicular BBB, CAD, GERD w/ esophagitis, BPH, osteoarthritis, chronic pain syndrome, chronic back pain, polycythemia, depression/WES, tobacco use disorder and other problems listed below who presented to the ED for worsening shortness of breath. COPD exacerbation Ongoing tobacco use Chronic hypoxic respiratory failure O2 saturation at 85 on 3L NC on admission (within normal baseline range) - monitor PCR positive for enterovirus/rhinovirus on PCR- supportive care CXR cardiomegaly without acute process Duonebs QIDR, mucinex BID, antitussives, prednisone, azithromycin, PRN albuterol inh, Singulair Nicotine patch, smoking cessation counseling Chest pain Troponin elevation Endorsing left sided CP x 1 week in setting of illness, cough - seems atypical in nature HS troponin 22.3 -> 29 ->60s -> 56, in setting of acute illness as above EKG without significant change from previous Most recent echo from September 2023 with preserved, EF stable findings of distal LAD territory wall motion abnormality, unchanged compared to 2022 Repeat echo ordered - EF 60-65%, mild concentric LVH, est. syst. pulm. pressure is 37 mm Hg Cardiology consulted and discussed with - Troponin elevation likely secondary to demand ischemia - Plans for nuclear stress test as an outpt once he recovers from this respiratory infection - Continue aspirin, statin, plavix - Give lasix 100 IV x1 (hold torsemide), increased losartan to 100 mg daily HFpEF Recently had diuretic transition to 40mg Torsemide daily (by outpt cardiology) States he is urinating more, BLE edema and weight is unchanged per patient Cardiology consulted - torsemide stopped for now, IV lasix given, losartan increased to 100 daily, beta judit Hyperkalemia - K elevated today - possibly from increased losartan dose (possibly secondary to also testosterone use) - given calcium gluc., lokelma, iv lasix , ECG, repeat K improved DM II A1c 8 in July 2023 Patient requesting a normal diet Basal/bolus insulin while admitted Glycemic consult placed given significant home insulin regimen + steroids BSG AC HS Chronic pain syndrome Opioid dependence Given missed dose of MC contin 100mg while in ED Continue home regimen per PDMP - morphine ext release 100mg TID, morphine 30mg PO Q8H PRN for breakthrough pain, morphine 15mg Q6H PRN for breakthrough pain Extended conversation with admitting team - regarding pain regimen had during admission process - patient expressed "wanting to control pain medications myself, "I don't want nursing to tell me no upstairs", "if you don't give me the meds when I need them I will leave" - reassured that goal is to both manage pain and safely administer home opioid regimen while admitted Bowel regimen CKD III Baseline Cr ~ 1.4 (at baseline on admission). Monitor with daily BMP Cr now increased likely secondary to illness, iv lasix, increased losartan dose, cont. to closely monitor Polycythemia, secondary Follows with [facility] according to [facility] records. CBC w/diff testing [id number], phlebotomy if Hct>45. Consider heme/onc consult if Hct level increases >45 DVT Ppx: SQ heparin Code status: FULL PCP: Dr. Sampson Dispo: pcu Admission and Anticipated Discharge Date Admission Date: March 19, 2024 Subjective Pt seen in follow up of URI (rhinovirus), COPD exacerbation, also complains of CP and elev. troponin Pt is currently sitting up in bed in NAD Reports difficulty coughing up phlegm but feels it's loosing up. Has rhinorrhea, clear. Pt declines nasal spray. Currently no fever, chills, abd. pain, n/v + CP prior to his cough -> reports being seen in outpt cardiology clinic for that as well and started on torsemide at that time -> pt concerned about chest pain and having his troponin elevated on admission - would like to be further evaluated for his poss. cardiac symptoms --> cardiology consulted and discussed with again today - will give 100 iv lasix today, losartan was increased , K elevated today Sputum cultx ordered Discussed close follow up w/ pcp and pulmonary med. after hospital discharge - pt in agreement K elevated today - calcium gluc., lokelma, ecg, iv lasix Review of Systems Review of Systems: All systems reviewed & are unremarkable except as noted in Subjective Physical Exam Physical Exam: General Appearance: obese M in NAD Head: normocephalic, atraumatic Eyes: normal inspection, PERRL, conjunctivae normal, anicteric sclerae ENT: external ear and nose normal Neck: supple Respiratory: normal respiratory effort, diminished breath sounds, mild expiratory wheezing throughout. No accessory muscle use Cardiovascular: regular rhythm, 1+ BLE edema Chest: normal inspection of chest Abdomen/GI: normal bowel sounds, soft but distended, nontender Extremities/Musculoskeletal: extremities motor strength 5/5, moves extremities Neurologic: PERRL, EOMI, no face palsy, no dysarthria, moves all extremities Psychiatric: A+Ox3, euthymic affect Skin: warm/dry Results & Data Results & Data Vital Signs (Past 12 Hours) Vital Signs Temp Pulse Pulse Resp BP Pulse Ox O2 Del Method 03/21/24 07:40 36.6 C 82 18 148/71 H 92 CPAP 03/21/24 07:17 88 19 99 CPAP 03/21/24 07:17 88 19 99 03/21/24 02:57 36.7 C 89 20 169/72 H 98 Nasal CPAP 03/21/24 01:53 36.8 C 03/21/24 01:40 96 H 9 L 98 03/21/24 01:13 85 9 L 98 CPAP 03/20/24 23:24 107 H 03/20/24 23:16 95 H 14 99 03/20/24 22:55 37 C 100 H 20 179/74 H 93 Room Air O2 Flow Rate 03/21/24 07:40 03/21/24 07:17 03/21/24 07:17 03/21/24 02:57 03/21/24 01:53 03/21/24 01:40 3 03/21/24 01:13 3 03/20/24 23:24 03/20/24 23:16 2 03/20/24 22:55 Laboratory Results 03/21/24 03/21/24 03/21/24 Range/Units 07:44 07:42 06:42 WBC 12.93 H (4.8-10.8) K/ul RBC 5.16 (4.70-6.10) M/uL Hgb 13.0 L (14.0-18.0) g/dl Hct 40.9 L (42.0-52.0) % MCV 79.3 L (80.0-100.0) fL MCH 25.2 (25.0-34.0) pg MCHC 31.8 L (32.0-36.0) g/dL RDW Std Deviation 50.3 H (36.4-46.3) fL RDW Coeff of Ben 17.4 H (11.5-14.5) % Plt Count 311 (130-400) K/uL MPV 9.0 L (9.4-12.4) fL Sodium 130 L (136-145) mmol/L Potassium 5.6 H (3.5-5.1) mmol/L Chloride 93 L (98-107) mmol/L Carbon Dioxide 30 (21-32) mmol/L Anion Gap 7 (3-11) BUN 49 H (6-23) mg/dl Creatinine 1.60 H (0.6-1.4) mg/dl Est Cr Clr Drug Dosing 61.6 ml/min eGFR 48.72 BUN/Creatinine Ratio 30.6 H (10-20) Glucose 299 H (70-99(Fasting)) mg/dl POC Glucose 325 H* 342 H* (70-99) mg/dl Calcium 9.2 (8.6-10.3) mg/dl Phosphorus 3.9 (2.5-4.9) mg/dl Magnesium 2.4 (1.7-2.4) mg/dl 03/21/24 03/20/24 03/20/24 Range/Units 05:10 20:01 15:58 WBC (4.8-10.8) K/ul RBC (4.70-6.10) M/uL Hgb (14.0-18.0) g/dl Hct (42.0-52.0) % MCV (80.0-100.0) fL MCH (25.0-34.0) pg MCHC (32.0-36.0) g/dL RDW Std Deviation (36.4-46.3) fL RDW Coeff of Ben (11.5-14.5) % Plt Count (130-400) K/uL MPV (9.4-12.4) fL Sodium (136-145) mmol/L Potassium (3.5-5.1) mmol/L Chloride (98-107) mmol/L Carbon Dioxide (21-32) mmol/L Anion Gap (3-11) BUN (6-23) mg/dl Creatinine (0.6-1.4) mg/dl Est Cr Clr Drug Dosing ml/min eGFR BUN/Creatinine Ratio (10-20) Glucose (70-99(Fasting)) mg/dl POC Glucose 298 H 173 H 254 H (70-99) mg/dl Calcium (8.6-10.3) mg/dl Phosphorus (2.5-4.9) mg/dl Magnesium (1.7-2.4) mg/dl 03/20/24 Range/Units 11:30 WBC (4.8-10.8) K/ul RBC (4.70-6.10) M/uL Hgb (14.0-18.0) g/dl Hct (42.0-52.0) % MCV (80.0-100.0) fL MCH (25.0-34.0) pg MCHC (32.0-36.0) g/dL RDW Std Deviation (36.4-46.3) fL RDW Coeff of Ben (11.5-14.5) % Plt Count (130-400) K/uL MPV (9.4-12.4) fL Sodium (136-145) mmol/L Potassium (3.5-5.1) mmol/L Chloride (98-107) mmol/L Carbon Dioxide (21-32) mmol/L Anion Gap (3-11) BUN (6-23) mg/dl Creatinine (0.6-1.4) mg/dl Est Cr Clr Drug Dosing ml/min eGFR BUN/Creatinine Ratio (10-20) Glucose (70-99(Fasting)) mg/dl POC Glucose 152 H (70-99) mg/dl Calcium (8.6-10.3) mg/dl Phosphorus (2.5-4.9) mg/dl Magnesium (1.7-2.4) mg/dl Medications Administered Current Inpatient Medications Acetaminophen (Acetaminophen 325 Mg Tab) 650 mg PO Q4H PRN PRN Reason: Pain or Fever Stop: 04/18/24 15:26 Albuterol (Albut/Ipratrop 3mg/0.5mg Neb 3 Ml Vial) 3 ml NEB Q6R [facility]; Protocol Stop: 04/18/24 15:04 Last Admin: 03/21/24 07:17 Dose: 3 ml Albuterol (Albuterol Hfa 8 Gm Inhaler) 2 puffs INH Q6H PRN PRN Reason: Wheezing Stop: 04/18/24 15:26 Last Admin: 03/19/24 21:56 Dose: 2 puffs Amlodipine Besylate (Amlodipine Besylate 5 Mg Tab) 2.5 mg PO [facility] Stop: 04/18/24 23:04 Last Admin: 03/20/24 20:17 Dose: 2.5 mg Aspirin (Aspirin 81 Mg Ectab) 81 mg PO [facility] Stop: 04/18/24 20:59 Last Admin: 03/20/24 20:17 Dose: 81 mg Azithromycin (Azithromycin 250 Mg Tab) 250 mg PO [facility] Stop: 03/25/24 08:59 Last Admin: 03/21/24 08:58 Dose: 250 mg Bisacodyl (Bisacodyl 5 Mg Tabec) 5 mg PO DAILY PRN PRN Reason: Constipation Stop: 04/18/24 16:58 Cetirizine HCl (Cetirizine Hcl 10 Mg Tablet) 5 mg PO DAILY PRN PRN Reason: Allergy Symptoms Clopidogrel Bisulfate (Clopidogrel Bisulfate 75 Mg Tab) 75 mg PO [facility] Stop: 04/19/24 08:59 Last Admin: 03/21/24 08:59 Dose: 75 mg Dextrose (Dextrose 50% 50 Ml Syringe) 25 - 50 ml IV UD PRN; Protocol PRN Reason: Hypoglycemia Protocol Stop: 04/18/24 16:44 Glucagon (Glucagon For Inj 1 Mg Vial) 1 mg SQ UD PRN; Protocol PRN Reason: Hypoglycemia Protocol Stop: 04/18/24 16:44 Glucose (Glucose 40% Gel 15 Gm Tube) 15 - 30 gm PO UD PRN; Protocol PRN Reason: Hypoglycemia Protocol Stop: 04/18/24 16:44 Glucose (Glucose 10 Tab/Tube) 4 - 8 tab PO UD PRN; Protocol PRN Reason: Hypoglycemia Protocol Stop: 04/18/24 16:44 Guaifenesin (Guaifenesin 600 Mg Tabcr) 1,200 mg PO Q12 [facility] Stop: 04/18/24 15:04 Last Admin: 03/21/24 08:58 Dose: 1,200 mg Heparin Sodium (Porcine) (Heparin Sod 5,000 Unit/0.5 Ml Vial) 5,000 units SQ Q8 [facility] Stop: 04/18/24 21:59 Last Admin: 03/21/24 08:57 Dose: 5,000 units Hydroxyzine HCl (Hydroxyzine Hcl 25 Mg Tab) 25 mg PO Q8H PRN PRN Reason: anxiety Stop: 04/18/24 15:26 Last Admin: 03/21/24 09:00 Dose: 25 mg Calcium Gluconate () 1,000 mg in 60 mls @ 240 mls/hr IV NOW [facility] Stop: 03/21/24 09:44 Insulin Aspart (Insulin Aspart Per Unit Charge) 0 units SC ACHS [facility] Stop: 04/18/24 16:29 Last Admin: 03/21/24 08:19 Dose: 74 units Insulin Glargine (Lantus Per Unit Charge) 120 units SC DAILY [facility] Stop: 04/20/24 08:59 Last Admin: 03/21/24 08:19 Dose: 120 units Lidocaine (Lidocaine 5% 1 Patch) 2 patch TD HS [facility] Stop: 04/18/24 20:59 Last Admin: 03/20/24 20:16 Dose: 2 patch Losartan Potassium (Losartan Potassium 50 Mg Tab) 100 mg PO DAILY [facility] Stop: 04/20/24 08:59 Last Admin: 03/21/24 09:01 Dose: 100 mg Metoprolol Succinate (Metoprolol Succ 25mg Ext Rel Tab) 25 mg PO BID [facility] Stop: 04/19/24 00:00 Last Admin: 03/21/24 08:59 Dose: 25 mg Miscellaneous (Remove Lidoderm Patch) 1 each N/A DAILY@2100 [facility] Stop: 04/18/24 20:59 Last Admin: 03/20/24 20:18 Dose: 1 each Miscellaneous (Remove Nicoderm Patch) 1 each N/A DAILY@0859 [facility] Stop: 04/19/24 08:58 Last Admin: 03/21/24 09:01 Dose: 1 each Miscellaneous (Carbohydrates For Hypoglycemia ) 15 - 30 gm PO UD PRN PRN Reason: Hypoglycemia Treatment Stop: 04/18/24 16:44 Miscellaneous (Continuous Glucose Monitor) 1 each N/A DAILY [facility] Stop: 04/20/24 08:59 Last Admin: 03/21/24 09:01 Dose: 1 each Miscellaneous Information (Pharmacy Glycemic Mgmt Consult) 1 each N/A UD PRN; Protocol PRN Reason: Consult Stop: 04/18/24 14:54 Montelukast Sodium (Montelukast Sodium 10 Mg Tablet) 10 mg PO DAILY [facility] Stop: 04/19/24 08:59 Last Admin: 03/21/24 08:58 Dose: 10 mg Morphine Sulfate (Morphine Sulfate Ir 15 Mg Tab (Immediate Release)) 15 mg PO Q6H PRN PRN Reason: Breakthrough Pain 1-6 Stop: 04/02/24 15:26 Last Admin: 03/21/24 01:00 Dose: 15 mg Morphine Sulfate (Morphine Sulfate Cr 60 Mg Tabcr) 60 mg PO TID@0800,1399,1999 [facility] Stop: 04/02/24 19:59 Last Admin: 03/21/24 08:56 Dose: 60 mg Morphine Sulfate (Morphine Sulfate Cr 15 Mg Tabcr) 45 mg PO TID@0800,1399,1999 [facility] Stop: 04/02/24 19:59 Last Admin: 03/21/24 08:56 Dose: 45 mg Morphine Sulfate (Morphine Sulfate Cr 15 Mg Tabcr) 30 mg PO TID PRN PRN Reason: BREAKTHROUGH PAIN (7-10) Stop: 04/02/24 16:54 Last Admin: 03/21/24 01:00 Dose: 30 mg Mupirocin (Mupirocin 2% Oint 22 Gm Tube) 1 appln TOP DAILY PRN PRN Reason: flare up Stop: 04/18/24 15:26 Nicotine (Nicotine 21 Mg/24 Hr Tdsy) 1 patch TD DAILY [facility] Stop: 04/19/24 08:59 Last Admin: 03/21/24 08:56 Dose: 1 patch Pantoprazole Sodium (Pantoprazole 40 Mg Tab) 40 mg PO Q2D@0900 [facility] Stop: 04/18/24 16:59 Last Admin: 03/21/24 08:58 Dose: 40 mg Phenol (Chloraseptic (Phenol) 1.4% Soln 180 Ml Btl) 1 sprays MT Q4H PRN PRN Reason: Sore Throat Stop: 04/20/24 01:33 Polyethylene Glycol (Polyethylene (Miralax) 17 Gm Pack) 17 gm PO DAILY [facility] Stop: 04/18/24 16:59 Last Admin: 03/21/24 09:02 Dose: 17 gm Prednisone (Prednisone 20 Mg Tab) 40 mg PO DAILY [facility] Stop: 04/18/24 16:59 Last Admin: 03/21/24 08:58 Dose: 40 mg Rosuvastatin Calcium (Rosuvastatin Calcium 5 Mg Tab) 5 mg PO QAM [facility] Stop: 04/19/24 08:59 Last Admin: 03/21/24 08:58 Dose: 5 mg Sodium Zirconium Cyclosilicate (Sodium Zirconium Cyclosilicate 10 Gm Packet) 10 gm PO TID [facility] Stop: 03/22/24 21:01 Testosterone (Testosterone Gel 20.25mg/Pump) 1 appln [facility] Stop: 04/19/24 20:59 Last Admin: 03/20/24 22:35 Dose: 1 appln Vitamin D (Cholecalciferol 125 Mcg (5,000 Units) Tab) 125 mcg PO HS [facility] Stop: 04/19/24 20:59 Last Admin: 03/20/24 20:16 Dose: 125 mcg (2) Chest pain Chest pain type: unspecified Qualified Code(s): R07.9 - Chest pain, unspecified (13) Hypertension Hypertension type: unspecified Qualified Code(s): I10 - Essential (primary) hypertension
[2024-03-21] MEDS: CALCIUM GLUCONATE 1,000 MG/60 ML BAG IV STA (10:39)
[2024-03-21] MEDS: SODIUM ZIRCONIUM CYCLOSILICATE 10 GM PACKET PO SCH (10:42)
--- NOTE | 2024-03-21 15:33 | Electrocardiogram Report ---
Test Reason : Blood Pressure : */* mmHG Vent. Rate : 93 BPM Atrial Rate : 93 BPM P-R Int : 152 ms QRS Dur : 128 ms QT Int : 364 ms P-R-T Axes : 56 -59 39 degrees QTcB Int : 452 ms Normal sinus rhythm Right bundle branch block Left anterior fascicular block Bifascicular block Abnormal ECG When compared with ECG of 19-Mar-2024 09:44, No significant change was found Confirmed by Herbert Mahoney ([id number]) on 03/21/2024 3:32:47 PM Referred By: REFERRED SELF Confirmed By: Herbert Mahoney
[2024-03-21] MEDS: FUROSEMIDE 40 MG/4 ML VIAL IV ONE (15:51)
[2024-03-21] MEDS: hydrOXYzine HCl 25 MG TAB PO PRN (15:51)
[2024-03-22] MEDS: INSULIN ASPART PER UNIT CHARGE SC SCH (01:32)
[2024-03-22 06:13] LABS: Hematocrit (blood only) 40.2 % (42.0-52.0); Hemoglobin 12.4 g/dl (14.0-18.0); Mean Corpuscular Hemoglobin 24.7 pg (25.0-34.0); Mean Corpuscular Hgb Conc 30.8 g/dL (32.0-36.0); Mean Corpuscular Volume 79.9 fL (80.0-100.0); Platelet Count 330 K/uL (130-400); RDW Coefficient of Variation 17.6 % (11.5-14.5); RDW Standard Deviation 50.4 fL (36.4-46.3); Red Blood Count 5.03 M/uL (4.70-6.10); White Blood Count 19.35 K/ul (4.8-10.8)
[2024-03-22 06:33] LABS: Partial Thromboplastin Ratio 0.9; Partial Thromboplastin Time 24 Seconds (21-31)
[2024-03-22] MEDS: LANTUS PER UNIT CHARGE SC SCH ×2 (09:01→21:37)
[2024-03-22] MEDS: NovoLIN-N (NPH) PER UNIT CHARGE SQ ONE (09:02)
[2024-03-22 09:03] LABS: Creatinine Clr Calc Pharmacy 48.2 ml/min
[2024-03-22 09:07] LABS: Calcium 9.1 mg/dl (8.6-10.3); Magnesium 2.4 mg/dl (1.7-2.4); Potassium 4.4 mmol/L (3.5-5.1)
[2024-03-22 09:13] LABS: BUN Creatinine Ratio 28.7 (10-20); Phosphorus 5.3 mg/dl (2.5-4.9)
--- NOTE | 2024-03-22 10:21 | Hospitalist Progress Note ---
Date of Service March 22, 2024 Assessment & Plan (1) Troponin level elevated: (2) Chest pain: (3) URI (upper respiratory infection): (4) Chronic hypoxic respiratory failure: (5) Acute exacerbation of chronic obstructive pulmonary disease: (6) Sleep apnea: (7) S/P CABG x 1: (8) Chronic pain syndrome: (9) Opioid dependence: (10) Tobacco abuse: (11) Obesity: (12) Type 2 diabetes mellitus with insulin therapy: (13) Hypertension: (14) Chronic kidney disease (CKD): Plan This is a 63yo M with a PMH of PMH of COPD, ongoing tobacco use, DM type II, hx of NSTEMI (10/2022 CABG), chronic pain syndrome on narcotics, diabetic polyneuropathy, CKD stage III, dyslipidemia, COPD, AR (on CPAP), pulmonary emphysema, chronic diastolic congestive HF, HTN, bifascicular BBB, CAD, GERD w/ esophagitis, BPH, osteoarthritis, chronic pain syndrome, chronic back pain, polycythemia, depression/WES, tobacco use disorder and other problems listed below who presented to the ED for worsening shortness of breath. COPD exacerbation Ongoing tobacco use Chronic hypoxic respiratory failure O2 saturation at 85 on 3L NC on admission (within normal baseline range) - monitor PCR positive for enterovirus/rhinovirus on PCR- supportive care CXR cardiomegaly without acute process Duonebs QIDR, mucinex BID, antitussives, prednisone, azithromycin, PRN albuterol inh, Singulair Nicotine patch, smoking cessation counseling Chest pain Troponin elevation Endorsing left sided CP x 1 week in setting of illness, cough - seems atypical in nature HS troponin 22.3 -> 29 ->60s -> 56, in setting of acute illness as above EKG without significant change from previous Most recent echo from September 2023 with preserved, EF stable findings of distal LAD territory wall motion abnormality, unchanged compared to 2022 Repeat echo ordered - EF 60-65%, mild concentric LVH, est. syst. pulm. pressure is 37 mm Hg Cardiology consulted and discussed with - Troponin elevation likely secondary to demand ischemia - Plans for nuclear stress test as an outpt once he recovers from this respiratory infection - Continue aspirin, statin, plavix - 03/22 discussed w/ cardiology - elev. Cr, good diuresis, hold diuretic today, already given losartan this AM, hold now HFpEF Recently had diuretic transition to 40mg Torsemide daily (by outpt cardiology) States he is urinating more, BLE edema and weight is unchanged per patient Cardiology consulted - as above Hyperkalemia - possibly from increased losartan dose (possibly secondary to also testosterone use) - given calcium gluc., lokelma, iv lasix , ECG, repeat K improved DM II A1c 8 in July 2023 Patient requesting a normal diet Basal/bolus insulin while admitted Glycemic consult placed given significant home insulin regimen + steroids BSG AC HS Chronic pain syndrome Opioid dependence Given missed dose of MC contin 100mg while in ED Continue home regimen per PDMP - morphine ext release 100mg TID, morphine 30mg PO Q8H PRN for breakthrough pain, morphine 15mg Q6H PRN for breakthrough pain Extended conversation with admitting team - regarding pain regimen had during admission process - patient expressed "wanting to control pain medications myself, "I don't want nursing to tell me no upstairs", "if you don't give me the meds when I need them I will leave" - reassured that goal is to both manage pain and safely administer home opioid regimen while admitted Bowel regimen LAUREN on CKD III Baseline Cr ~ 1.4 (at baseline on admission). Monitor with daily BMP Cr now increased likely secondary to illness, iv lasix, increased losartan dose - hold diuretic today, losartan already given this AM, hold now - cont. to closely monitor Polycythemia, secondary Follows with [facility] according to [facility] records. CBC w/diff testing [id number], phlebotomy if Hct>45. Consider heme/onc consult if Hct level increases >45 DVT Ppx: SQ heparin Code status: FULL PCP: Dr. Sampson Dispo: pcu Admission and Anticipated Discharge Date Admission Date: March 19, 2024 Subjective Pt seen in follow up of URI (rhinovirus), COPD exacerbation, also complains of CP and elev. troponin Pt is currently sitting up in bed in NAD Reports difficulty coughing up phlegm but feels it's loosing up. Has rhinorrhea, clear. Pt declines nasal spray. Currently no fever, chills, abd. pain, n/v + CP prior to his cough -> reports being seen in outpt cardiology clinic for that as well and started on torsemide at that time -> pt concerned about chest pain and having his troponin elevated on admission - would like to be further evaluated for his poss. cardiac symptoms --> cardiology consulted and discussed with again today - given elev. Cr , good diuresis, will hold diuretics, already got losartan this AM, will hold any further losartan Sputum cultx ordered Discussed close follow up w/ pcp and pulmonary med. after hospital discharge - pt in agreement Review of Systems Review of Systems: All systems reviewed & are unremarkable except as noted in Subjective Physical Exam Physical Exam: General Appearance: obese M in NAD Head: normocephalic, atraumatic Eyes: normal inspection, PERRL, conjunctivae normal, anicteric sclerae ENT: external ear and nose normal Neck: supple Respiratory: normal respiratory effort, diminished breath sounds, mild expiratory wheezing throughout. No accessory muscle use Cardiovascular: regular rhythm, 1+ BLE edema Chest: normal inspection of chest Abdomen/GI: normal bowel sounds, soft but distended, nontender Extremities/Musculoskeletal: extremities motor strength 5/5, moves extremities Neurologic: PERRL, EOMI, no face palsy, no dysarthria, moves all extremities Psychiatric: A+Ox3, euthymic affect Skin: warm/dry Results & Data Results & Data Vital Signs (Past 12 Hours) Vital Signs Temp Pulse Pulse Resp BP BP Pulse Ox 03/22/24 07:30 36.5 C 84 19 125/64 97 03/22/24 07:15 83 16 96 03/22/24 05:09 36.6 C 78 18 138/63 94 03/22/24 00:29 94 H 18 97 03/22/24 00:09 03/22/24 00:00 102 H 03/21/24 23:00 36.7 C 104 H 22 140/64 97 O2 Del Method O2 Flow Rate 03/22/24 07:30 CPAP 03/22/24 07:15 CPAP 3 03/22/24 05:09 CPAP 03/22/24 00:29 Nasal Cannula 3 03/22/24 00:09 Nasal Cannula 3 03/22/24 00:00 03/21/24 23:00 Nasal Cannula 3 Laboratory Results 03/22/24 03/22/24 03/22/24 Range/Units 07:39 05:46 05:12 WBC 19.35 H (4.8-10.8) K/ul RBC 5.03 (4.70-6.10) M/uL Hgb 12.4 L (14.0-18.0) g/dl Hct 40.2 L (42.0-52.0) % MCV 79.9 L (80.0-100.0) fL MCH 24.7 L (25.0-34.0) pg MCHC 30.8 L (32.0-36.0) g/dL RDW Std Deviation 50.4 H (36.4-46.3) fL RDW Coeff of Ben 17.6 H (11.5-14.5) % Plt Count 330 (130-400) K/uL MPV 9.0 L (9.4-12.4) fL APTT 24 (21-31) Seconds PTT Ratio 0.9 Sodium 132 L (136-145) mmol/L Potassium 4.4 (3.5-5.1) mmol/L Chloride 94 L (98-107) mmol/L Carbon Dioxide 26 (21-32) mmol/L Anion Gap 12 H (3-11) BUN 58 H (6-23) mg/dl Creatinine 2.02 H D (0.6-1.4) mg/dl Est Cr Clr Drug Dosing 48.2 ml/min eGFR 36.83 BUN/Creatinine Ratio 28.7 H (10-20) Glucose 202 H (70-99(Fasting)) mg/dl POC Glucose 221 H 205 H (70-99) mg/dl Calcium 9.1 (8.6-10.3) mg/dl Phosphorus 5.3 H (2.5-4.9) mg/dl Magnesium 2.4 (1.7-2.4) mg/dl 03/22/24 03/21/24 03/21/24 Range/Units 01:23 20:58 20:21 WBC (4.8-10.8) K/ul RBC (4.70-6.10) M/uL Hgb (14.0-18.0) g/dl Hct (42.0-52.0) % MCV (80.0-100.0) fL MCH (25.0-34.0) pg MCHC (32.0-36.0) g/dL RDW Std Deviation (36.4-46.3) fL RDW Coeff of Ben (11.5-14.5) % Plt Count (130-400) K/uL MPV (9.4-12.4) fL APTT (21-31) Seconds PTT Ratio Sodium (136-145) mmol/L Potassium 4.8 (3.5-5.1) mmol/L Chloride (98-107) mmol/L Carbon Dioxide (21-32) mmol/L Anion Gap (3-11) BUN (6-23) mg/dl Creatinine (0.6-1.4) mg/dl Est Cr Clr Drug Dosing ml/min eGFR BUN/Creatinine Ratio (10-20) Glucose (70-99(Fasting)) mg/dl POC Glucose 129 H 327 H* (70-99) mg/dl Calcium (8.6-10.3) mg/dl Phosphorus (2.5-4.9) mg/dl Magnesium (1.7-2.4) mg/dl 03/21/24 03/21/24 03/21/24 Range/Units 16:31 11:37 09:52 WBC (4.8-10.8) K/ul RBC (4.70-6.10) M/uL Hgb (14.0-18.0) g/dl Hct (42.0-52.0) % MCV (80.0-100.0) fL MCH (25.0-34.0) pg MCHC (32.0-36.0) g/dL RDW Std Deviation (36.4-46.3) fL RDW Coeff of Ben (11.5-14.5) % Plt Count (130-400) K/uL MPV (9.4-12.4) fL APTT (21-31) Seconds PTT Ratio Sodium (136-145) mmol/L Potassium 5.3 H (3.5-5.1) mmol/L Chloride (98-107) mmol/L Carbon Dioxide (21-32) mmol/L Anion Gap (3-11) BUN (6-23) mg/dl Creatinine (0.6-1.4) mg/dl Est Cr Clr Drug Dosing ml/min eGFR BUN/Creatinine Ratio (10-20) Glucose (70-99(Fasting)) mg/dl POC Glucose 268 H 336 H* (70-99) mg/dl Calcium (8.6-10.3) mg/dl Phosphorus (2.5-4.9) mg/dl Magnesium (1.7-2.4) mg/dl Medications Administered Current Inpatient Medications Acetaminophen (Acetaminophen 325 Mg Tab) 650 mg PO Q4H PRN PRN Reason: Pain or Fever Stop: 04/18/24 15:26 Albuterol (Albut/Ipratrop 3mg/0.5mg Neb 3 Ml Vial) 3 ml NEB Q6R [facility]; Protocol Stop: 04/18/24 15:04 Last Admin: 03/22/24 07:15 Dose: 3 ml Albuterol (Albuterol Hfa 8 Gm Inhaler) 2 puffs INH Q6H PRN PRN Reason: Wheezing Stop: 04/18/24 15:26 Last Admin: 03/19/24 21:56 Dose: 2 puffs Amlodipine Besylate (Amlodipine Besylate 5 Mg Tab) 2.5 mg PO [facility] Stop: 04/18/24 23:04 Last Admin: 03/21/24 21:27 Dose: 2.5 mg Aspirin (Aspirin 81 Mg Ectab) 81 mg PO [facility] Stop: 04/18/24 20:59 Last Admin: 03/21/24 21:27 Dose: 81 mg Azithromycin (Azithromycin 250 Mg Tab) 250 mg PO [facility] Stop: 03/25/24 08:59 Last Admin: 03/22/24 08:07 Dose: 250 mg Bisacodyl (Bisacodyl 5 Mg Tabec) 5 mg PO DAILY PRN PRN Reason: Constipation Stop: 04/18/24 16:58 Cetirizine HCl (Cetirizine Hcl 10 Mg Tablet) 5 mg PO DAILY PRN PRN Reason: Allergy Symptoms Clopidogrel Bisulfate (Clopidogrel Bisulfate 75 Mg Tab) 75 mg PO [facility] Stop: 04/19/24 08:59 Last Admin: 03/22/24 09:04 Dose: 75 mg Dextrose (Dextrose 50% 50 Ml Syringe) 25 - 50 ml IV UD PRN; Protocol PRN Reason: Hypoglycemia Protocol Stop: 04/18/24 16:44 Glucagon (Glucagon For Inj 1 Mg Vial) 1 mg SQ UD PRN; Protocol PRN Reason: Hypoglycemia Protocol Stop: 04/18/24 16:44 Glucose (Glucose 40% Gel 15 Gm Tube) 15 - 30 gm PO UD PRN; Protocol PRN Reason: Hypoglycemia Protocol Stop: 04/18/24 16:44 Glucose (Glucose 10 Tab/Tube) 4 - 8 tab PO UD PRN; Protocol PRN Reason: Hypoglycemia Protocol Stop: 04/18/24 16:44 Guaifenesin (Guaifenesin 600 Mg Tabcr) 1,200 mg PO Q12 [facility] Stop: 04/18/24 15:04 Last Admin: 03/22/24 09:03 Dose: 1,200 mg Heparin Sodium (Porcine) (Heparin Sod 5,000 Unit/0.5 Ml Vial) 5,000 units SQ Q8 [facility] Stop: 04/18/24 21:59 Last Admin: 03/22/24 05:36 Dose: 5,000 units Hydroxyzine HCl (Hydroxyzine Hcl 25 Mg Tab) 25 mg PO Q4H PRN PRN Reason: anxiety Stop: 04/18/24 15:26 Last Admin: 03/22/24 08:11 Dose: 25 mg Insulin Aspart (Insulin Aspart Per Unit Charge) 0 units SC ACHS [facility] Stop: 04/18/24 16:29 Last Admin: 03/22/24 09:00 Dose: 87 units Insulin Glargine (Lantus Per Unit Charge) 100 units SC DAILY [facility] Stop: 04/21/24 08:59 Last Admin: 03/22/24 09:01 Dose: 100 units Lidocaine (Lidocaine 5% 1 Patch) 2 patch TD HS [facility] Stop: 04/18/24 20:59 Last Admin: 03/21/24 21:28 Dose: 2 patch Losartan Potassium (Losartan Potassium 50 Mg Tab) 100 mg PO DAILY [facility] Stop: 04/20/24 08:59 Last Admin: 03/22/24 09:04 Dose: 100 mg Metoprolol Succinate (Metoprolol Succ 25mg Ext Rel Tab) 25 mg PO BID [facility] Stop: 04/19/24 00:00 Last Admin: 03/22/24 08:07 Dose: 25 mg Miscellaneous (Remove Lidoderm Patch) 1 each N/A DAILY@2100 [facility] Stop: 04/18/24 20:59 Last Admin: 03/21/24 21:29 Dose: 1 each Miscellaneous (Remove Nicoderm Patch) 1 each N/A DAILY@0859 [facility] Stop: 04/19/24 08:58 Last Admin: 03/21/24 09:01 Dose: 1 each Miscellaneous (Carbohydrates For Hypoglycemia ) 15 - 30 gm PO UD PRN PRN Reason: Hypoglycemia Treatment Stop: 04/18/24 16:44 Miscellaneous (Continuous Glucose Monitor) 1 each N/A DAILY [facility] Stop: 04/20/24 08:59 Last Admin: 03/21/24 09:01 Dose: 1 each Miscellaneous Information (Pharmacy Glycemic Mgmt Consult) 1 each N/A UD PRN; Protocol PRN Reason: Consult Stop: 04/18/24 14:54 Montelukast Sodium (Montelukast Sodium 10 Mg Tablet) 10 mg PO DAILY [facility] Stop: 04/19/24 08:59 Last Admin: 03/22/24 09:06 Dose: 10 mg Morphine Sulfate (Morphine Sulfate Ir 15 Mg Tab (Immediate Release)) 15 mg PO Q6H PRN PRN Reason: Breakthrough Pain 1-6 Stop: 04/02/24 15:26 Last Admin: 03/22/24 08:58 Dose: 15 mg Morphine Sulfate (Morphine Sulfate Cr 60 Mg Tabcr) 60 mg PO TID@0800,1400,1999 [facility] Stop: 04/02/24 19:59 Last Admin: 03/22/24 08:07 Dose: 60 mg Morphine Sulfate (Morphine Sulfate Cr 15 Mg Tabcr) 45 mg PO TID@0800,1400,1999 [facility] Stop: 04/02/24 19:59 Last Admin: 03/22/24 08:06 Dose: 45 mg Morphine Sulfate (Morphine Sulfate Cr 15 Mg Tabcr) 30 mg PO TID PRN PRN Reason: BREAKTHROUGH PAIN (7-10) Stop: 04/02/24 16:54 Last Admin: 03/22/24 05:41 Dose: 30 mg Mupirocin (Mupirocin 2% Oint 22 Gm Tube) 1 appln TOP DAILY PRN PRN Reason: flare up Stop: 04/18/24 15:26 Nicotine (Nicotine 21 Mg/24 Hr Tdsy) 1 patch TD DAILY [facility] Stop: 04/19/24 08:59 Last Admin: 03/22/24 09:03 Dose: 1 patch Pantoprazole Sodium (Pantoprazole 40 Mg Tab) 40 mg PO Q2D@0900 [facility] Stop: 04/18/24 16:59 Last Admin: 03/21/24 08:58 Dose: 40 mg Phenol (Chloraseptic (Phenol) 1.4% Soln 180 Ml Btl) 1 sprays MT Q4H PRN PRN Reason: Sore Throat Stop: 04/20/24 01:33 Polyethylene Glycol (Polyethylene (Miralax) 17 Gm Pack) 17 gm PO DAILY [facility] Stop: 04/18/24 16:59 Last Admin: 03/22/24 09:08 Dose: 17 gm Prednisone (Prednisone 20 Mg Tab) 40 mg PO DAILY [facility] Stop: 04/18/24 16:59 Last Admin: 03/22/24 08:07 Dose: 40 mg Rosuvastatin Calcium (Rosuvastatin Calcium 5 Mg Tab) 5 mg PO QAM [facility] Stop: 04/19/24 08:59 Last Admin: 03/22/24 09:06 Dose: 5 mg Sodium Zirconium Cyclosilicate (Sodium Zirconium Cyclosilicate 10 Gm Packet) 10 gm PO TID [facility] Stop: 03/22/24 21:01 Last Admin: 03/22/24 09:09 Dose: 10 gm Testosterone (Testosterone Gel 20.25mg/Pump) 1 appln TOP [facility] Stop: 04/19/24 20:59 Last Admin: 03/21/24 21:29 Dose: 1 appln Vitamin D (Cholecalciferol 125 Mcg (5,000 Units) Tab) 125 mcg PO [facility] Stop: 04/19/24 20:59 Last Admin: 03/21/24 21:27 Dose: 125 mcg (2) Chest pain Chest pain type: unspecified Qualified Code(s): R07.9 - Chest pain, unspecified (13) Hypertension Hypertension type: unspecified Qualified Code(s): I10 - Essential (primary) hypertension
[2024-03-22 13:32] LABS: Creatinine Urine Random 129.1 mg/dl; Protein Creatinine Ratio Urine 1.9 (0-0.2); Total Protein Urine Random 248.4 mg/dl (0-11.9)
--- NOTE | 2024-03-22 14:13 | Pharmacy Report ---
Pharmacy Glycemic Short Note 2 - Date of Service March 22, 2024 - Glycemic Short BSG Results (Last 24 hours): 03/21/24 03/21/24 03/22/24 16:31 20:21 01:23 Glucose POC Glucose 268 H 327 H* 129 H 03/22/24 03/22/24 03/22/24 05:12 05:46 07:39 Glucose 202 H POC Glucose 205 H 221 H 03/22/24 10:54 Glucose POC Glucose 258 H OUTPATIENT ANTIDIABETIC REGIMEN: * Toujeo 156 units daily, Novolog 20-40 units TIDM / CF 20 - per [place] [facility] notes 12/28/23 * HbA1c 8% 12/22/23 ASSESSMENT: 03/22 * Nabil received 346 units of insulin yesterday (120 were basal) * Received 40 mg IV Solumedrol early yesterday evening. Increased basal insulin by 50% in response, BSGs still elevated throughout the day. NovoLog parameters tightened significantly. * Fasting BSG this AM better, but still above goal range, will trial insulin NPH with the prednisone to counteract the steroid induced hyperglycemia. AM basal dose decreased slightly, but adding a scale at bedtime if BSGs are elevated. * Carbohydrate ratio tightened again this AM. 03/19: * 63 year old admitted with COPD exacerbation/chest pain. Type 2 diabetic managed on insulin at home. PO prednisone started on admission, anticipate steroid induced hyperglycemia. Fasting BSG 192 mg/dL - patient known to glycemic service from other admissions and typically requires much less insulin during hospitalization. Will trial decreasing outpatient basal by ~50% for now. May need to adjust with ongoing steroids. Will continue tighter novolog coverage. PLAN FOR INPATIENT GLYCEMIC CONTROL: * Hold outpatient oral diabetes medications * Basal insulin * Lantus 100 units SQ daily * Insulin NPH 40 units SQ daily with prednisone * Lantus 0-40 units SQ HS based on BSG (see eMAR for additional details) * Bolus insulin * NovoLog per scale ACHS or Q6hrs while NPO * Goal Range: Low 110 mg/dL - High 140 mg/dL * Correction Factor: 6 mg/dL/unit * Nutritional / Prandial insulin per carb ratio of 1 unit per 1.5 grams CHO consumed
[2024-03-23] MEDS: INSULIN ASPART PER UNIT CHARGE SC STA (02:22)
[2024-03-23 07:39] LABS: Calcium 9.1 mg/dl (8.6-10.3); Creatinine Clr Calc Pharmacy 63.5 ml/min; Magnesium 2.6 mg/dl (1.7-2.4); Phosphorus 4.9 mg/dl (2.5-4.9); Potassium 4.2 mmol/L (3.5-5.1)
[2024-03-23 07:46] LABS: Partial Thromboplastin Ratio 0.9; Partial Thromboplastin Time 24 Seconds (21-31)
[2024-03-23] MEDS: INSULIN HUMAN NPH SC SCH (08:23)
[2024-03-23] MEDS: LANTUS PER UNIT CHARGE SC SCH ×2 (08:23→19:48)
--- NOTE | 2024-03-23 12:19 | XRay Report ---
XR chest 1V portable HISTORY: 63 years-old Male follow up, copd hypoxia COMPARISON: 03/19/2024 TECHNIQUE: AP view the chest FINDINGS: Cardiac silhouette is enlarged. Median sternotomy with mediastinal surgical clips. Pulmonary vascular congestion with chronic interstitial coarsening. Chronic deformity of the distal left clavicle. No p neumothorax, large pleural effusion or airspace consolidation. IMPRESSION: Cardiomegaly with pulmonary vascular congestion. ACT 112: Negative or not required by law. The above report was generated using voice recognition software. It may contain grammatical, syntax o r spelling errors. Electronically signed by: Prashant Pope M.D. 03/23/2024 12:18 PM
[2024-03-23] MEDS: TORSEMIDE 20 MG TAB PO SCH (13:49)
--- NOTE | 2024-03-23 15:03 | Pharmacy Report ---
Pharmacy Glycemic Short Note 2 - Date of Service March 23, 2024 - Glycemic Short BSG Results (Last 24 hours): 03/22/24 03/22/24 03/23/24 16:02 20:06 02:26 Glucose POC Glucose 119 H 225 H 316 H* 03/23/24 03/23/24 03/23/24 03:38 06:20 07:30 Glucose 207 H POC Glucose 336 H* 146 H 03/23/24 11:22 Glucose POC Glucose 130 H OUTPATIENT ANTIDIABETIC REGIMEN: * Toujeo 156 units daily, Novolog 20-40 units TIDM / CF 20 - per [facility] notes 12/28/23 * HbA1c 8% 12/22/23 ASSESSMENT: 03/23 * Patient received 320 units of insulin yesterday, of which 140 units were basal insulin * Fasting BSG 146 mg/dL - however did receive 11 units overnight correctional insulin * Patient refusing long acting insulin this AM - MD aware. Patient also refusing prednisone this AM, but then did take dose around ~1200. Discussed with patient plan for this evening and added on basal scale for HS. I discussed my concerns that blood sugars will be trending up now that he took prednisone dose. Patient is not ready to take any basal insulin yet. Agreeable to reach out at dinner time if blood sugars trending up and we could move HS Lantus to dinner time. He reports he is agreeable now to take short acting insulin and also would be okay if we added overnight checks for short acting insulin. 03/22 * Nabil received 346 units of insulin yesterday (120 were basal) * Received 40 mg IV Solumedrol early yesterday evening. Increased basal insulin by 50% in response, BSGs still elevated throughout the day. NovoLog parameters tightened significantly. * Fasting BSG this AM better, but still above goal range, will trial insulin NPH with the prednisone to counteract the steroid induced hyperglycemia. AM basal dose decreased slightly, but adding a scale at bedtime if BSGs are elevated. * Carbohydrate ratio tightened again this AM. 03/19: * 63 year old admitted with COPD exacerbation/chest pain. Type 2 diabetic managed on insulin at home. PO prednisone started on admission, anticipate steroid induced hyperglycemia. Fasting BSG 192 mg/dL - patient known to glycemic service from other admissions and typically requires much less insulin during hospitalization. Will trial decreasing outpatient basal by ~50% for now. May need to adjust with ongoing steroids. Will continue tighter novolog coverage. PLAN FOR INPATIENT GLYCEMIC CONTROL: * Hold outpatient oral diabetes medications * Basal insulin * Lantus 80-120 units HS * Bolus insulin * NovoLog per scale ACHS or Q6hrs while NPO * Goal Range: Low 110 mg/dL - High 140 mg/dL * Correction Factor: 8 mg/dL/unit * Nutritional / Prandial insulin per carb ratio of 1 unit per 2 grams CHO consumed
--- NOTE | 2024-03-23 17:49 | Hospitalist Progress Note ---
Date of Service March 23, 2024 Assessment & Plan (1) Troponin level elevated: (2) Chest pain: (3) URI (upper respiratory infection): (4) Chronic hypoxic respiratory failure: (5) Acute exacerbation of chronic obstructive pulmonary disease: (6) Sleep apnea: (7) S/P CABG x 1: (8) Chronic pain syndrome: (9) Opioid dependence: (10) Tobacco abuse: (11) Obesity: (12) Type 2 diabetes mellitus with insulin therapy: (13) Hypertension: (14) Chronic kidney disease (CKD): Plan This is a 63yo M with a PMH of PMH of COPD, ongoing tobacco use, DM type II, hx of NSTEMI (10/2022 CABG), chronic pain syndrome on narcotics, diabetic polyneuropathy, CKD stage III, dyslipidemia, COPD, AR (on CPAP), pulmonary emphysema, chronic diastolic congestive HF, HTN, bifascicular BBB, CAD, GERD w/ esophagitis, BPH, osteoarthritis, chronic pain syndrome, chronic back pain, polycythemia, depression/WES, tobacco use disorder and other problems listed below who presented to the ED for worsening shortness of breath. COPD exacerbation Ongoing tobacco use Chronic hypoxic respiratory failure O2 saturation at 85 on 3L NC on admission (within normal baseline range) - monitor PCR positive for enterovirus/rhinovirus on PCR- supportive care CXR cardiomegaly without acute process Duonebs QIDR, mucinex BID, antitussives, prednisone, azithromycin, PRN albuterol inh, Singulair Nicotine patch, smoking cessation counseling Chest pain Troponin elevation Endorsing left sided CP x 1 week in setting of illness, cough - seems atypical in nature HS troponin 22.3 -> 29 ->60s -> 56, in setting of acute illness as above EKG without significant change from previous Most recent echo from September 2023 with preserved, EF stable findings of distal LAD territory wall motion abnormality, unchanged compared to 2022 Repeat echo ordered - EF 60-65%, mild concentric LVH, est. syst. pulm. pressure is 37 mm Hg Cardiology consulted and discussed with - Troponin elevation likely secondary to demand ischemia - Plans for nuclear stress test as an outpt once he recovers from this respiratory infection - Continue aspirin, statin, plavix - 03/22 discussed w/ cardiology - elev. Cr, good diuresis, hold diuretic today, already given losartan this AM, hold now HFpEF Recently had diuretic transition to 40mg Torsemide daily (by outpt cardiology) - resume torsemide now States he is urinating more, BLE edema and weight is unchanged per patient Cardiology consulted - as above Hyperkalemia - resolved - possibly from increased losartan dose (possibly secondary to also testosterone use) - given calcium gluc., lokelma, iv lasix , ECG, repeat K improved DM II A1c 8 in July 2023 Patient requesting a normal diet Basal/bolus insulin while admitted Glycemic consult placed given significant home insulin regimen + steroids BSG AC HS Chronic pain syndrome Opioid dependence Given missed dose of MC contin 100mg while in ED Continue home regimen per PDMP - morphine ext release 100mg TID, morphine 30mg PO Q8H PRN for breakthrough pain, morphine 15mg Q6H PRN for breakthrough pain Extended conversation with admitting team - regarding pain regimen had during admission process - patient expressed "wanting to control pain medications myself, "I don't want nursing to tell me no upstairs", "if you don't give me the meds when I need them I will leave" - reassured that goal is to both manage pain and safely administer home opioid regimen while admitted Bowel regimen LAUERN on CKD III Baseline Cr ~ 1.4 (at baseline on admission). Monitor with daily BMP Cr increased likely secondary to illness, iv lasix, increased losartan dose - held diuretic yesterday,hold losartan, ok to resume torsemide - cont. to closely monitor Polycythemia, secondary Follows with [facility] according to [facility] records. CBC w/diff testing [id number], phlebotomy if Hct>45. Consider heme/onc consult if Hct level increases >45 DVT Ppx: SQ heparin Code status: FULL PCP: Dr. Sampson Dispo: pcu Admission and Anticipated Discharge Date Admission Date: March 19, 2024 Subjective Pt seen in follow up of URI (rhinovirus), COPD exacerbation, also complains of CP and elev. troponin Pt is currently sitting up in bed in NAD Reports difficulty coughing up phlegm but feels it's loosing up. Has rhinorrhea, clear. Pt declines nasal spray. Currently no fever, chills, abd. pain, n/v + CP prior to his cough -> reports being seen in outpt cardiology clinic for that as well and started on torsemide at that time -> pt concerned about chest pain and having his troponin elevated on admission - would like to be further evaluated for his poss. cardiac symptoms --> cardiology consulted Sputum cultx obtained Discussed close follow up w/ pcp and pulmonary med. after hospital discharge - pt in agreement Extensive discussion about patient's plan of care. Pt declining insulin - explained in detail insulin coverage and role of NPH insulin, also asked glycemic pharmacist who has been following the pt to please discuss patient's concerns. Informed later that pt also declines taking azithromycin, despite multiple attempts by nursing staff. Review of Systems Review of Systems: All systems reviewed & are unremarkable except as noted in Subjective Physical Exam Physical Exam: General Appearance: obese M in NAD Head: normocephalic, atraumatic Eyes: normal inspection, PERRL, conjunctivae normal, anicteric sclerae ENT: external ear and nose normal Neck: supple Respiratory: normal respiratory effort, diminished breath sounds, mild expiratory wheezing throughout. No accessory muscle use Cardiovascular: regular rhythm, 1+ BLE edema Chest: normal inspection of chest Abdomen/GI: normal bowel sounds, soft but distended, nontender Extremities/Musculoskeletal: extremities motor strength 5/5, moves extremities Neurologic: PERRL, EOMI, no face palsy, no dysarthria, moves all extremities Psychiatric: A+Ox3, euthymic affect Skin: warm/dry Results & Data Results & Data Vital Signs (Past 12 Hours) Vital Signs Temp Pulse Pulse Resp BP BP Pulse Ox 03/23/24 16:16 37 C 94 H 20 173/79 H 99 03/23/24 14:38 96 H 18 96 03/23/24 14:03 107 H 03/23/24 11:25 37.0 C 96 H 19 161/78 H 95 03/23/24 09:50 03/23/24 08:00 75 03/23/24 07:28 36.4 C L 88 20 128/72 92 03/23/24 07:05 105 H 16 92 O2 Del Method O2 Flow Rate 03/23/24 16:16 CPAP 03/23/24 14:38 Room Air 03/23/24 14:03 03/23/24 11:25 Nasal Cannula 4 03/23/24 09:50 Nasal Cannula 3 03/23/24 08:00 03/23/24 07:28 Room Air 03/23/24 07:05 Room Air Laboratory Results 12/11/0703/23/24 03/23/24 Range/Units 16:20 11:22 11:09 APTT (21-31) Seconds PTT Ratio Sodium (136-145) mmol/L Potassium (3.5-5.1) mmol/L Chloride (98-107) mmol/L Carbon Dioxide (21-32) mmol/L Anion Gap (3-11) BUN (6-23) mg/dl Creatinine (0.6-1.4) mg/dl Est Cr Clr Drug Dosing ml/min eGFR BUN/Creatinine Ratio (10-20) Glucose (70-99(Fasting)) mg/dl POC Glucose 246 H 130 H (70-99) mg/dl Calcium (8.6-10.3) mg/dl Phosphorus (2.5-4.9) mg/dl Magnesium (1.7-2.4) mg/dl Procalcitonin 0.06 (0-0.5) ng/ml 03/23/24 03/23/24 03/23/24 Range/Units 07:30 06:20 03:38 APTT 24 (21-31) Seconds PTT Ratio 0.9 Sodium 135 L (136-145) mmol/L Potassium 4.2 (3.5-5.1) mmol/L Chloride 97 L (98-107) mmol/L Carbon Dioxide 29 (21-32) mmol/L Anion Gap 9 (3-11) BUN 48 H (6-23) mg/dl Creatinine 1.55 H D (0.6-1.4) mg/dl Est Cr Clr Drug Dosing 63.5 ml/min eGFR 50.61 BUN/Creatinine Ratio 31.0 H (10-20) Glucose 207 H (70-99(Fasting)) mg/dl POC Glucose 146 H 336 H* (70-99) mg/dl Calcium 9.1 (8.6-10.3) mg/dl Phosphorus 4.9 (2.5-4.9) mg/dl Magnesium 2.6 H (1.7-2.4) mg/dl Procalcitonin (0-0.5) ng/ml 03/23/24 03/22/24 Range/Units 02:26 20:06 APTT (21-31) Seconds PTT Ratio Sodium (136-145) mmol/L Potassium (3.5-5.1) mmol/L Chloride (98-107) mmol/L Carbon Dioxide (21-32) mmol/L Anion Gap (3-11) BUN (6-23) mg/dl Creatinine (0.6-1.4) mg/dl Est Cr Clr Drug Dosing ml/min eGFR BUN/Creatinine Ratio (10-20) Glucose (70-99(Fasting)) mg/dl POC Glucose 316 H* 225 H (70-99) mg/dl Calcium (8.6-10.3) mg/dl Phosphorus (2.5-4.9) mg/dl Magnesium (1.7-2.4) mg/dl Procalcitonin (0-0.5) ng/ml Medications Administered Current Inpatient Medications Acetaminophen (Acetaminophen 325 Mg Tab) 650 mg PO Q4H PRN PRN Reason: Pain or Fever Stop: 04/18/24 15:26 Albuterol (Albut/Ipratrop 3mg/0.5mg Neb 3 Ml Vial) 3 ml NEB Q6R [facility]; Protocol Stop: 04/18/24 15:04 Last Admin: 03/23/24 14:35 Dose: 3 ml Albuterol (Albuterol Hfa 8 Gm Inhaler) 2 puffs INH Q6H PRN PRN Reason: Wheezing Stop: 04/18/24 15:26 Last Admin: 03/22/24 17:51 Dose: 2 puffs Amlodipine Besylate (Amlodipine Besylate 5 Mg Tab) 2.5 mg PO [facility] Stop: 04/18/24 23:04 Last Admin: 03/22/24 23:09 Dose: Not Given Aspirin (Aspirin 81 Mg Ectab) 81 mg PO [facility] Stop: 04/18/24 20:59 Last Admin: 03/22/24 22:40 Dose: 81 mg Azithromycin (Azithromycin 250 Mg Tab) 250 mg PO [facility] Stop: 03/25/24 08:59 Last Admin: 03/23/24 12:01 Dose: Not Given Bisacodyl (Bisacodyl 5 Mg Tabec) 5 mg PO DAILY PRN PRN Reason: Constipation Stop: 04/18/24 16:58 Cetirizine HCl (Cetirizine Hcl 10 Mg Tablet) 5 mg PO DAILY PRN PRN Reason: Allergy Symptoms Clopidogrel Bisulfate (Clopidogrel Bisulfate 75 Mg Tab) 75 mg PO [facility] Stop: 04/19/24 08:59 Last Admin: 12/07/24 09:22 Dose: 75 mg Dextrose (Dextrose 50% 50 Ml Syringe) 25 - 50 ml IV UD PRN; Protocol PRN Reason: Hypoglycemia Protocol Stop: 04/18/24 16:44 Glucagon (Glucagon For Inj 1 Mg Vial) 1 mg SQ UD PRN; Protocol PRN Reason: Hypoglycemia Protocol Stop: 04/18/24 16:44 Glucose (Glucose 40% Gel 15 Gm Tube) 15 - 30 gm PO UD PRN; Protocol PRN Reason: Hypoglycemia Protocol Stop: 04/18/24 16:44 Glucose (Glucose 10 Tab/Tube) 4 - 8 tab PO UD PRN; Protocol PRN Reason: Hypoglycemia Protocol Stop: 04/18/24 16:44 Guaifenesin (Guaifenesin 600 Mg Tabcr) 1,200 mg PO Q12 [facility] Stop: 04/18/24 15:04 Last Admin: 03/23/24 09:21 Dose: 1,200 mg Heparin Sodium (Porcine) (Heparin Sod 5,000 Unit/0.5 Ml Vial) 5,000 units SQ Q8 [facility] Stop: 04/18/24 21:59 Last Admin: 03/23/24 14:04 Dose: Not Given Hydroxyzine HCl (Hydroxyzine Hcl 25 Mg Tab) 25 mg PO Q4H PRN PRN Reason: anxiety Stop: 04/18/24 15:26 Last Admin: 03/23/24 15:11 Dose: 25 mg Insulin Aspart (Insulin Aspart Per Unit Charge) 0 units SC ACHS [facility] Stop: 04/18/24 16:29 Last Admin: 03/23/24 17:32 Dose: 54 units Insulin Aspart (Insulin Aspart Per Unit Charge) 0 units SC 0000,0400 [facility] Stop: 03/24/24 04:01 Insulin Glargine (Lantus Per Unit Charge) 0 units SC HS [facility]; Protocol Stop: 04/22/24 20:59 Lidocaine (Lidocaine 5% 1 Patch) 2 patch TD HS [facility] Stop: 04/18/24 20:59 Last Admin: 03/22/24 22:58 Dose: 2 patch Metoprolol Succinate (Metoprolol Succ 25mg Ext Rel Tab) 25 mg PO BID [facility] Stop: 04/19/24 00:00 Last Admin: 03/23/24 08:33 Dose: 25 mg Miscellaneous (Remove Lidoderm Patch) 1 each N/A DAILY@2100 [facility] Stop: 04/18/24 20:59 Last Admin: 03/22/24 23:53 Dose: 1 each Miscellaneous (Remove Nicoderm Patch) 1 each N/A DAILY@0859 [facility] Stop: 04/19/24 08:58 Last Admin: 03/23/24 09:18 Dose: 1 each Miscellaneous (Carbohydrates For Hypoglycemia ) 15 - 30 gm PO UD PRN PRN Reason: Hypoglycemia Treatment Stop: 04/18/24 16:44 Miscellaneous (Continuous Glucose Monitor) 1 each N/A DAILY [facility] Stop: 04/20/24 08:59 Last Admin: 03/23/24 08:20 Dose: 1 each Miscellaneous Information (Pharmacy Glycemic Mgmt Consult) 1 each N/A UD PRN; Protocol PRN Reason: Consult Stop: 04/18/24 14:54 Montelukast Sodium (Montelukast Sodium 10 Mg Tablet) 10 mg PO DAILY [facility] Stop: 04/19/24 08:59 Last Admin: 03/23/24 09:21 Dose: 10 mg Morphine Sulfate (Morphine Sulfate Ir 15 Mg Tab (Immediate Release)) 15 mg PO Q6H PRN PRN Reason: Breakthrough Pain 1-6 Stop: 04/02/24 15:26 Last Admin: 03/23/24 15:10 Dose: 15 mg Morphine Sulfate (Morphine Sulfate Cr 60 Mg Tabcr) 60 mg PO TID@0800,1400,1999 [facility] Stop: 04/02/24 19:59 Last Admin: 03/23/24 13:49 Dose: 60 mg Morphine Sulfate (Morphine Sulfate Cr 15 Mg Tabcr) 45 mg PO TID@0800,1400,1999 [facility] Stop: 04/02/24 19:59 Last Admin: 03/23/24 13:49 Dose: 45 mg Morphine Sulfate (Morphine Sulfate Cr 15 Mg Tabcr) 30 mg PO TID PRN PRN Reason: BREAKTHROUGH PAIN (7-10) Stop: 04/02/24 16:54 Last Admin: 03/23/24 11:48 Dose: 30 mg Mupirocin (Mupirocin 2% Oint 22 Gm Tube) 1 appln TOP DAILY PRN PRN Reason: flare up Stop: 04/18/24 15:26 Nicotine (Nicotine 21 Mg/24 Hr Tdsy) 1 patch TD DAILY [facility] Stop: 04/19/24 08:59 Last Admin: 03/23/24 08:47 Dose: 1 patch Pantoprazole Sodium (Pantoprazole 40 Mg Tab) 40 mg PO Q2D@0900 [facility] Stop: 04/18/24 16:59 Last Admin: 03/23/24 08:32 Dose: 40 mg Phenol (Chloraseptic (Phenol) 1.4% Soln 180 Ml Btl) 1 sprays MT Q4H PRN PRN Reason: Sore Throat Stop: 04/20/24 01:33 Polyethylene Glycol (Polyethylene (Miralax) 17 Gm Pack) 17 gm PO DAILY [facility] Stop: 04/18/24 16:59 Last Admin: 03/23/24 09:20 Dose: 17 gm Prednisone (Prednisone 20 Mg Tab) 40 mg PO DAILY [facility] Stop: 04/18/24 16:59 Last Admin: 03/23/24 11:51 Dose: 40 mg Rosuvastatin Calcium (Rosuvastatin Calcium 5 Mg Tab) [facility] Stop: 04/19/24 08:59 Last Admin: 03/23/24 09:22 Dose: 5 mg Testosterone (Testosterone Gel 20.25mg/Pump) 1 appln TOP [facility] Stop: 04/19/24 20:59 Last Admin: 03/22/24 23:09 Dose: Not Given Torsemide (Torsemide 20 Mg Tab) 40 mg PO [facility] Stop: 04/22/24 12:29 Last Admin: 03/23/24 13:49 Dose: 40 mg Vitamin D (Cholecalciferol 125 Mcg (5,000 Units) Tab) 125 mcg PO [facility] Stop: 04/19/24 20:59 Last Admin: 03/22/24 22:40 Dose: 125 mcg (2) Chest pain Chest pain type: unspecified Qualified Code(s): R07.9 - Chest pain, unspecified (13) Hypertension Hypertension type: unspecified Qualified Code(s): I10 - Essential (primary) hypertension
[2024-03-24] MEDS: INSULIN ASPART PER UNIT CHARGE SC SCH (01:14)
[2024-03-24 07:36] VITALS: RESP 20; TEMP 97.3; O2SAT 96
[2024-03-24 07:40] LABS: Partial Thromboplastin Ratio 0.9; Partial Thromboplastin Time 23 Seconds (21-31)
[2024-03-24 08:37] LABS: BUN Creatinine Ratio 31.6 (10-20); Calcium 8.8 mg/dl (8.6-10.3); Creatinine Clr Calc Pharmacy 73.9 ml/min; Magnesium 2.5 mg/dl (1.7-2.4); Potassium 4.1 mmol/L (3.5-5.1)
[2024-03-24] MEDS ORDERED: LANTUS PER UNIT CHARGE SC SCH (09:00)
[2024-03-24] MEDS: LOSARTAN POTASSIUM 25 MG TAB PO SCH (09:43)
[2024-03-24] MEDS: LANTUS PER UNIT CHARGE SC SCH (10:11)
--- NOTE | 2024-03-24 10:48 | Nephrology Consultation ---
Date of Consultation March 24, 2024 Assessment & Plan (1) LAUREN (acute kidney injury): * LAUREN resolved. Patient had LAUREN on the basis of aggressive diuresis in the setting of ARB therapy. Cr is now 1.3 and electrolyte balance is acceptable * CXR shows mild vascular congestion and patient still has mild peripheral edema. Recommend resuming outpatient doses of Losartan and Torsemide. Note that as outpatient Cardiology has managed diuretic therapy * Monitor UO, BMP (2) Chronic kidney disease (CKD): * CKD stage G2/A3 (mild impairment). Baseline Cr has been 1.2 w/ EGFR 62 cc/minute due to DKD (3) Rhinovirus infection: * On exam patient has poor air exchange * Continue steroid and nebulizer therapy History of Present Illness Reason for Consultation: LAUREN/CKD Attending Physician: Donnell Marcos MD History of Present Illness Mr. Cole is a 63-year-old white male who is seen at the request of Dr. Marcos for evaluation of LAUREN/CKD. Information for the HPI is obtained from direct patient interview and review of the EMR. HPI is summarized as follows: Mr. Cole is known to me from the outpatient setting. He was last seen in my office 02/08/2024. Mr. Cole has CKD stage G2/A3 (mild impairment). His baseline creatinine is 1.2 with EGFR 62 cc/minute. Urine sediment has been acellular. Patient does have proteinuria due to diabetic kidney disease. Prior evaluation for paraprotein was negative. Renal US 04/06 revealed normal-sized kidneys without obstruction/mass. As outpatient kidney function has remained relatively stable. Blood pressure has been managed with losartan which has also helped to reduce his urinary protein. Mr. Cole was admitted to [facility] approximately 5 days ago for evaluation of dyspnea. He was found to have mild CHF and tested positive for rhinovirus. Mr. Cole was evaluated by cardiology. Diuretic and ARB therapy were intensified. Patient did diurese 6 L and was subjectively improved. Unfortunately this was also met with LAUREN and hyperkalemia. Loop diuretic and ARB therapy are now on hold. Nephrology consultation has been requested by the hospitalist service. Allergies Allergy/AdvReac Type Severity Reaction Status Date / Time clarithromycin Allergy Severe DAMAGED Verified 03/19/24 13:21 LIVER PER PT-REQUIRED HOSPITALIZATION latex Allergy Intermediate skin Verified 03/19/24 13:21 irritation/rash ticagrelor [From Brilinta] AdvReac Severe sob Verified 03/19/24 13:21 adhesive AdvReac Mild SKIN Verified 03/19/24 13:21 RASH-WITH SOME TAPES dulaglutide AdvReac Unknown hx Verified 03/19/24 13:21 pancreatitis exenatide AdvReac Unknown hx Verified 03/19/24 13:21 pancreatitis liraglutide AdvReac Unknown hx Verified 03/19/24 13:21 pancreatitis semaglutide AdvReac Unknown hx Verified 03/19/24 13:21 pancreatitis Home Medications Medication Instructions Recorded Confirmed Type albuterol sulfate 90 mcg/actuation 2 puff inhalation Q6H PRN Wheezing 06/26/18 03/19/24 History aerosol inhaler Oxygen Home #1 ea 04/30/19 03/19/24 History aspirin 81 mg tablet,delayed 81 mg PO HS 03/12/20 03/19/24 History release blood-glucose meter,continuous 02/03/21 03/19/24 History (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) blood-glucose transmitter (Dexcom 02/03/21 03/19/24 History G6 Transmitter device) cetirizine 10 mg capsule (Zyrtec) 5 mg PO DAILY PRN Allergy Symptoms 03/05/21 03/19/24 History hydroxyzine pamoate 25 mg capsule 25 mg PO Q8H PRN anxiety 5 days 06/16/21 03/19/24 Rx (Vistaril) #15 caps morphine 100 mg tablet,extended 100 mg PO TID 10/12/21 03/19/24 History release clopidogrel 75 mg tablet (Plavix) 75 mg PO QAM 05/16/22 03/19/24 History linaclotide 145 mcg capsule 145 mcg PO DAILY PRN Constipation 08/01/22 03/19/24 History (Linzess) morphine 30 mg tablet,extended 30 mg PO Q8H PRN breakthrough pain 08/01/22 03/19/24 History release 6-10 blood sugar diagnostic #900 ea 08/19/22 03/19/24 Rx morphine 15 mg immediate release 15 mg PO Q6H PRN Breakthrough Pain 09/13/22 03/19/24 History tablet 1-6 rosuvastatin 5 mg tablet (Crestor) 5 mg PO QAM 11/08/22 03/19/24 History montelukast 10 mg tablet 10 mg PO DAILY pt request 12/22/22 03/19/24 History pantoprazole 40 mg tablet,delayed 40 mg PO Q OTHER DAY Heartburn 12/22/22 03/19/24 History release blood-glucose meter (Accu-Chek #1 ea 12/29/22 03/19/24 Rx Guide Glucose Meter) blood-glucose meter (OneTouch #1 ea 12/29/22 03/19/24 Rx Ultra2 Meter) blood sugar diagnostic (OneTouch #1,500 ea 01/04/23 03/19/24 Rx Ultra Test strips) Dexcom G6 Sensor (blood-glucose #3 ea 01/26/23 03/19/24 Rx sensor) losartan 25 mg tablet 25 mg PO DAILY #90 tabs 03/24/23 03/19/24 Rx Accu-Chek Guide test strips (blood #400 ea 04/19/23 03/19/24 Rx sugar diagnostic) insulin aspart U-100 100 unit/mL See Rx Instructions subcut WM 90 07/13/23 03/19/24 Rx (3 mL) subcutaneous pen (Novolog days #120 mL FlexPen U-100 Insulin aspart) cholecalciferol (vitamin D3) 25 5,000 unit PO HS 07/18/23 03/19/24 History mcg (1,000 unit) capsule (Vitamin D3) clindamycin phosphate 1 % lotion 1 applic topical DAILY PRN flare up 09/20/23 03/19/24 History insulin glargine U-300 conc 300 158 unit subcut QAM 09/20/23 03/19/24 History unit/mL (1.5 mL) subcutaneous pen (Toucamo SoloStar U-300 Insulin) mupirocin 2 % topical ointment 1 applic topical DAILY PRN flare up 09/20/23 03/19/24 History nicotine 21 mg/24 hr daily 1 patch transdermal DAILY 09/20/23 03/19/24 History transdermal patch glucagon HCl 1 mg solution for 1 mg subcut Q20M PRN hypoglycemia 10/06/23 03/19/24 Rx injection (Glucagon (HCl) #1 ea Emergency Kit) blood-glucose meter (OneTouch #8 ea 02/05/24 03/19/24 Rx Verio Flex Meter) testosterone 2 pump topical HS #225 grams 02/05/24 03/19/24 Rx blood sugar diagnostic (OneTouch #300 ea 02/12/24 03/19/24 Rx Verio test strips) ipratropium 0.5 mg-albuterol 3 mg 3 ml inhalation Q6H PRN sob or 03/19/24 03/19/24 History (2.5 mg base)/3 mL nebulization wheezing soln lidocaine 5 % topical patch 2 patch topical HS 03/19/24 03/19/24 History metoprolol succinate 25 mg 25 mg PO BID 03/19/24 03/19/24 History tablet,extended release 24 hr (Toprol XL) torsemide 20 mg tablet 40 mg PO QAM 03/19/24 03/19/24 History Patient History Medical History Acute on chronic diastolic (congestive) heart failure Hematuria, gross Testicle swelling Acute kidney injury superimposed on CKD Bifascicular block Medical cannabis use Transient ischemic attack (TIA) unsure of date - treated at [facility] On home oxygen therapy 3 lpm via n/c Migraines Diverticular disease History of SCC (squamous cell carcinoma) of skin History of basal cell carcinoma Obesity Post traumatic stress disorder History of acute pancreatitis RELATED TO A STONE OBSTRUCTION, 10/2017 Irritable bowel syndrome (IBS) GERD (gastroesophageal reflux disease) Surgical History History of coronary artery bypass graft History of heart artery stent x1 stent (02/2022) History of cardiac cath 02/2022 with 1 stent (LAD) Dr Leach at [facility]. S/P cholecystectomy 07/02/1819 Grade 2 view, MAC 3, ETT 8. History of tonsillectomy History of uvulopalatopharyngoplasty FOR TREATMENT OF AR History of surgery RT ELBOW History of repair of rotator cuff LEFT SHOULDER History of colonoscopy History of ERCP 11/2017 [facility] History of esophagogastroduodenoscopy (EGD) History of cardiac cath 2016-NO STENTS Fusion of spine MULTIPLE LUMBARX2 History of appendectomy History of back surgery total of 6 back surgeries. 2 failed surgeries Family History Other COPD (chronic obstructive pulmonary disease) Cancer Diabetes Heart disease Hypertension Social History Smoking Status: Current every day smoker Tobacco Type: Cigarettes packs per day: 1; Cigarettes Per Day: 1 PPD; Second Hand Exposure: Yes; Do You Dip or Chew Tobacco: No; Hx Alcohol Use: No Hx Substance Use: Yes Last Used Substance: Days (ago) Last Used Substance Other:: 03/15 Substance Use Type Other:: MEDICAL MARIJUANA Preferred Language: Bahamian Communication Ability: Effective Visual Impairment: No Limitations Health Officer Required: No Beliefs That Will Affect Care: None marital status: Current Living Situation: Spouse Current Living Situation Comment: [place] current occupation: On disability Other Information That Helps Us Care for You: No Feels Safe at Home: Yes Safety Concerns: Feels Safe At This Time Diet: regular Dental Care, Regularly: No Physical Activity Frequency: Does not Exercise Do you think of yourself as: straight/heterosexual Gender Identity: Male Assistive Devices: Cane and Walker Review of Systems Constitutional: no fever Eyes: no problem reported Ear, Nose, Mouth, Throat: no problem reported Respiratory: + wheezing Cardiovascular: no chest pain Gastrointestinal: no abdominal pain, no nausea, no vomiting and no diarrhea/loose stools Genitourinary: no dysuria Physical Exam Constitutional: not in distress Eyes: PERRL, conjunctivae normal, anicteric sclerae ENMT: external ear and nose normal, oropharynx normal Neck: trachea midline, no thyromegaly Respiratory: no respiratory distress Poor air exchange w/ expiratory wheezing Cardiovascular: Rate/Rhythm: regular rate and regular rhythm Extremities: + edema (trace LE edema) Gastrointestinal (Abdomen): normal bowel sounds, soft, nontender, no hepatosplenomegaly Musculoskeletal: Extremities: no cyanosis and no clubbing Skin: no rashes, warm and dry Neurologic: awake; not confused Results & Data Vital Signs (Past 12 Hours) Vital Signs Temp Pulse Pulse Resp BP Pulse Ox O2 Del Method 03/24/24 09:28 Room Air 03/24/24 07:35 36.3 C L 79 20 175/77 H 96 Room Air 03/24/24 07:17 92 H 18 94 Room Air 03/24/24 03:33 77 16 97 03/24/24 03:18 36.6 C 86 18 162/70 H 97 CPAP 03/24/24 03:02 101 H 03/24/24 00:47 86 20 95 CPAP O2 Flow Rate 03/24/24 09:28 12/08/24 07:35 03/24/24 07:17 03/24/24 03:33 3 03/24/24 03:18 03/24/24 03:02 03/24/24 00:47 3 Laboratory Results Laboratory Results WBC 19.35 K/ul (4.8-10.8) H 03/22/24 05:46 RBC 5.03 M/uL (4.70-6.10) 03/22/24 05:46 Hgb 12.4 g/dl (14.0-18.0) L 03/22/24 05:46 Hct 40.2 % (42.0-52.0) L 03/22/24 05:46 MCV 79.9 fL (80.0-100.0) L 03/22/24 05:46 MCH 24.7 pg (25.0-34.0) L 03/22/24 05:46 MCHC 30.8 g/dL (32.0-36.0) L 03/22/24 05:46 RDW Std Deviation 50.4 fL (36.4-46.3) H 03/22/24 05:46 RDW Coeff of Ben 17.6 % (11.5-14.5) H 03/22/24 05:46 Plt Count 330 K/uL (130-400) 03/22/24 05:46 MPV 9.0 fL (9.4-12.4) L 03/22/24 05:46 Immature Gran % (Auto) 0.4 % 03/19/24 09:57 Neut % (Auto) 77.0 % 03/19/24 09:57 Lymph % (Auto) 9.6 % 03/19/24 09:57 Monroe % (Auto) 11.5 % 03/19/24 09:57 Eos % (Auto) 1.1 % 03/19/24 09:57 Baso % (Auto) 0.4 % 03/19/24 09:57 Neut # (Auto) 11.54 K/uL (1.40-6.50) H 03/19/24 09:57 Lymph # (Auto) 1.44 K/uL (1.20-3.40) 03/19/24 09:57 Monroe # (Auto) 1.72 K/uL (0.11-0.59) H 03/19/24 09:57 Eos # (Auto) 0.17 K/uL (0.00-0.50) 03/19/24 09:57 Baso # (Auto) 0.06 K/uL (0.00-0.20) 03/19/24 09:57 Immature Gran # (Auto) 0.06 K/uL (0.01-0.20) 03/19/24 09:57 APTT 23 Seconds (21-31) 03/24/24 06:29 PTT Ratio 0.9 03/24/24 06:29 Sodium 134 mmol/L (136-145) L 03/24/24 06:35 Potassium 4.1 mmol/L (3.5-5.1) 03/24/24 06:35 Chloride 96 mmol/L (98-107) L 03/24/24 06:35 Carbon Dioxide 34 mmol/L (21-32) H 03/24/24 06:35 Anion Gap 4 (3-11) 03/24/24 06:35 BUN 42 mg/dl (6-23) H 03/24/24 06:35 Creatinine 1.33 mg/dl (0.6-1.4) 03/24/24 06:35 Est Cr Clr Drug Dosing 73.9 ml/min 03/24/24 06:35 eGFR 60.81 03/24/24 06:35 BUN/Creatinine Ratio 31.6 (10-20) H 03/24/24 06:35 Glucose 222 mg/dl (70-99(Fasting)) H 03/24/24 06:35 POC Glucose 202 mg/dl (70-99) H 03/24/24 07:32 Calcium 8.8 mg/dl (8.6-10.3) 03/24/24 06:35 Phosphorus 4.9 mg/dl (2.5-4.9) 03/23/24 06:20 Magnesium 2.5 mg/dl (1.7-2.4) H 03/24/24 06:35 Total Bilirubin 0.4 mg/dl (0.2-1.0) 03/19/24 09:57 AST 31 U/L (13-39) 03/19/24 09:57 ALT 21 U/L (7-52) 03/19/24 09:57 Alkaline Phosphatase 68 U/L (34-104) 03/19/24 09:57 Troponin I High Sens 56.0 pg/ml (0-20) H* 03/19/24 23:13 Total Protein 6.4 gm/dl (6.0-8.3) 03/19/24 09:57 Albumin 3.7 gm/dl (3.4-5.0) 03/19/24 09:57 Globulin 2.7 gm/dl (2.5-4.0) 03/19/24 09:57 Albumin/Globulin Ratio 1.4 (0.9-2) 03/19/24 09:57 Lipase 12 U/L (11-82) 03/19/24 09:57 Procalcitonin 0.06 ng/ml (0-0.5) 03/23/24 11:09 Ur Random Creatinine 129.1 mg/dl 03/22/24 Unknown U Random Total Protein 248.4 mg/dl (0-11.9) H 03/22/24 Unknown Protein/Creatinin Ratio 1.9 (0-0.2) H 03/22/24 Unknown Nasal Screen MRSA (PCR) Negative (Negative) 03/19/24 Unknown Adenovirus (PCR) Not Detected (NotDetected) 03/19/24 09:57 B. pertussis DNA (PCR) Not Detected (NotDetected) 03/19/24 09:57 B.parapertussis DNA PCR Not Detected (NotDetected) 03/19/24 09:57 C. pneumoniae DNA (PCR) Not Detected (NotDetected) 03/19/24 09:57 Coronavirus OC43 (PCR) Not Detected (NotDetected) 03/19/24 09:57 Coronavirus HKU1 (PCR) Not Detected (NotDetected) 03/19/24 09:57 Coronavirus 229E (PCR) Not Detected (NotDetected) 03/19/24 09:57 SARS-CoV-2 (PCR) Not Detected (NotDetected) 03/19/24 09:57 Coronavirus NL63 (PCR) Not Detected (NotDetected) 03/19/24 09:57 Human Metapneumovir PCR Not Detected (NotDetected) 03/19/24 09:57 Influenza Type A (PCR) Not Detected (NotDetected) 03/19/24 09:57 Influenza Type B (PCR) Not Detected (NotDetected) 03/19/24 09:57 M. pneumoniae (PCR) Not Detected (NotDetected) 03/19/24 09:57 Parainfluenza 1 (PCR) Not Detected (NotDetected) 03/19/24 09:57 Parainfluenza 2 (PCR) Not Detected (NotDetected) 03/19/24 09:57 Parainfluenza 3 (PCR) Not Detected (NotDetected) 03/19/24 09:57 Parainfluenza 4 (PCR) Not Detected (NotDetected) 03/19/24 09:57 RSV (PCR) Not Detected (NotDetected) 03/19/24 09:57 Entero/Rhino (PCR) DETECTED (NotDetected) A 03/19/24 09:57 Impressions Chest X-Ray 03/23/24 10:56 XR chest 1V portable HISTORY: 63 years-old Male follow up, copd hypoxia COMPARISON: 03/19/2024 TECHNIQUE: AP view the chest FINDINGS: Cardiac silhouette is enlarged. Median sternotomy with mediastinal surgical clips. Pulmonary vascular congestion with chronic interstitial coarsening. Chronic deformity of the distal left clavicle. No pneumothorax, large pleural effusion or airspace consolidation. IMPRESSION: Cardiomegaly with pulmonary vascular congestion. ACT 112: Negative or not required by law. The above report was generated using voice recognition software. It may contain grammatical, syntax or spelling errors. Electronically signed by: Prashant Pope M.D. 03/23/2024 12:18 PM PG Care Time/CCT Total # of Minutes Spent Total Time Spent with Patient: Total time spent is greater than 50% in coordination of care (as documented) at patient's floor/unit and/or counseling patient: Coding Level of Care Code 06403 IN/OBS CONSULT LVL 5,80M Diagnoses LAUREN (acute kidney injury) N17.9 Chronic kidney disease (CKD) N18.9 Rhinovirus infection B34.8
[2024-03-24 11:05] VITALS: BP 173/79; PULSE 79
--- NOTE | 2024-03-24 11:17 | Discharge Summary ---
Date of Service March 24, 2024 Admission HPI Per Admitting Provider This is a 63yo M with a PMH of PMH of COPD, ongoing tobacco use, DM type II, hx of NSTEMI (10/2022 CABG), chronic pain syndrome on narcotics, diabetic polyneuropathy, CKD stage III, dyslipidemia, COPD, AR (on CPAP), pulmonary emphysema, chronic diastolic congestive HF, HTN, bifascicular BBB, CAD, GERD w/ esophagitis, BPH, osteoarthritis, chronic pain syndrome, chronic back pain, polycythemia, depression/WES, tobacco use disorder and other problems listed below who presented to the ED for worsening shortness of breath. Patient endorsing fever with Tmax of 100.9 F, congestion, cough, body aches and headache. Patient with COPD and ongoing tobacco use on 2-4 L O2 as needed during the day depending on activity level and CPAP at night. Intermittent chest pain x 1 week, worse with cough, left sided. Feels that he can't clear his sputum when he coughs. Lives at home with his . Recently followed up with CESIL[facility] F[facility]on and diuretic was switched to Torsemide 40mg daily. Uses his nebulizer 1x/week and albuterol inhaler. Smoking 1 ppd. No lightheadedness, hemoptysis, N/V, abd pain, dysuria, diarrhea or constipation. Admission Exam Per Admitting Provider General Appearance: WD/WN, vitals as above, NAD, sitting up in chair, intermittently agitated Head: normocephalic, atraumatic Eyes: normal inspection, PERRL, conjunctivae normal, anicteric sclerae ENT: external ear and nose normal, oropharynx normal Neck: normal visual inspection, trachea midline, no thyromegaly Respiratory: normal respiratory effort, diminished breath sounds, expiratory wheezing throughout. No accessory muscle use Cardiovascular: tachycardic rate, regular rhythm, normal peripheral pulses, 1+ BLE edema Chest: normal inspection of chest Abdomen/GI: normal bowel sounds, soft but distended, nontender, no hepatosplenomegaly Extremities/Musculoskeletal: no cyanosis or clubbing, extremities motor s trength 5/5 Neurologic: PERRL, EOMI, accommodation nl, no face palsy, no dysarthria, CN's II-XI intact bilaterally and moves all extremities Psychiatric: A+Ox3, euthymic affect Skin: no rashes, normal color, warm/dry Principal Diagnosis COPD exacerbation Rhinovirus infection Elevated troponin, chest pain Discharge Exam General Appearance: obese M in NAD Head: normocephalic, atraumatic Eyes: normal inspection, PERRL, conjunctivae normal, anicteric sclerae ENT: external ear and nose normal Neck: supple Respiratory: normal respiratory effort, diminished breath sounds, mild expiratory wheezing throughout. No accessory muscle use Cardiovascular: regular rhythm, 1+ BLE edema Chest: normal inspection of chest Abdomen/GI: normal bowel sounds, soft but distended, nontender Extremities/Musculoskeletal: extremities motor strength 5/5, moves extremities Neurologic: PERRL, EOMI, no face palsy, no dysarthria, moves all extremities Psychiatric: A+Ox3, euthymic affect Skin: warm/dry Discharge Data Allergies Allergy/AdvReac Type Severity Reaction Status Date / Time clarithromycin Allergy Severe DAMAGED Verified 03/19/24 13:21 LIVER PER PT-REQUIRED HOSPITALIZATION latex Allergy Intermediate skin Verified 03/19/24 13:21 irritation/rash ticagrelor [From Brilinta] AdvReac Severe sob Verified 03/19/24 13:21 adhesive AdvReac Mild SKIN Verified 03/19/24 13:21 RASH-WITH SOME TAPES dulaglutide AdvReac Unknown hx Verified 03/19/24 13:21 pancreatitis exenatide AdvReac Unknown hx Verified 03/19/24 13:21 pancreatitis liraglutide AdvReac Unknown hx Verified 03/19/24 13:21 pancreatitis semaglutide AdvReac Unknown hx Verified 03/19/24 13:21 pancreatitis Consultations 03/19/24 13:36 ED Decision to Admit Stat 03/20/24 13:20 Consult Cardiology Routine 03/24/24 09:08 Consult Nephrology Routine Hospital Course (1) Troponin level elevated: (2) Chest pain: (3) URI (upper respiratory infection): (4) Chronic hypoxic respiratory failure: (5) Acute exacerbation of chronic obstructive pulmonary disease: (6) Sleep apnea: (7) S/P CABG x 1: (8) Chronic pain syndrome: (9) Opioid dependence: (10) Tobacco abuse: (11) Obesity: (12) Type 2 diabetes mellitus with insulin therapy: (13) Hypertension: (14) Chronic kidney disease (CKD): Plan This is a 63yo M with a PMH of PMH of COPD, ongoing tobacco use, DM type II, hx of NSTEMI (10/2022 CABG), chronic pain syndrome on narcotics, diabetic polyneuropathy, CKD stage III, dyslipidemia, COPD, AR (on CPAP), pulmonary emphysema, chronic diastolic congestive HF, HTN, bifascicular BBB, CAD, GERD w/ esophagitis, BPH, osteoarthritis, chronic pain syndrome, chronic back pain, polycythemia, depression/WES, tobacco use disorder and other problems listed below who presented to the ED for worsening shortness of breath. COPD exacerbation Ongoing tobacco use Chronic hypoxic respiratory failure O2 saturation at 85 on 3L NC on admission (within normal baseline range) - monitor PCR positive for enterovirus/rhinovirus on PCR- supportive care CXR cardiomegaly without acute process Duonebs QIDR, mucinex BID, antitussives, prednisone, azithromycin, PRN albuterol inh, Singulair Nicotine patch, smoking cessation counseling Chest pain Troponin elevation Endorsing left sided CP x 1 week in setting of illness, cough - seems atypical in nature HS troponin 22.3 -> 29 ->60s -> 56, in setting of acute illness as above EKG without significant change from previous Most recent echo from September 2023 with preserved, EF stable findings of distal LAD territory wall motion abnormality, unchanged compared to 2022 Repeat echo ordered - EF 60-65%, mild concentric LVH, est. syst. pulm. pressure is 37 mm Hg Cardiology consulted and discussed with - Troponin elevation likely secondary to demand ischemia - Plans for nuclear stress test as an outpt once he recovers from this respiratory infection - Continue aspirin, statin, plavix - received lasix IV 100 , now resumed back on torsemide, and losartan 25 HFpEF Recently had diuretic transition to 40mg Torsemide daily (by outpt cardiology) - resumed torsemide States he is urinating more, BLE edema and weight is unchanged per patient Cardiology consulted - as above Hyperkalemia - resolved - possibly from increased losartan dose (possibly secondary to also testosterone use) - given calcium gluc., lokelma, iv lasix , ECG, repeat K improved DM II A1c 8 in July 2023 Patient requesting a normal diet Basal/bolus insulin while admitted Glycemic consult placed given significant home insulin regimen + steroids BSG AC HS Chronic pain syndrome Opioid dependence Given missed dose of MC contin 100mg while in ED Continue home regimen per PDMP - morphine ext release 100mg TID, morphine 30mg PO Q8H PRN for breakthrough pain, morphine 15mg Q6H PRN for breakthrough pain Extended conversation with admitting team - regarding pain regimen had during admission process - patient expressed "wanting to control pain medications myself, "I don't want nursing to tell me no upstairs", "if you don't give me the meds when I need them I will leave" - reassured that goal is to both manage pain and safely administer home opioid regimen while admitted Bowel regimen LAUREN on CKD III Baseline Cr ~ 1.4 (at baseline on admission). Monitor with daily BMP Cr increased likely secondary to illness, iv lasix, increased losartan dose - discussed w/ nephrology today - resume outpt meds - torsemide 40 and losartan 25 - pt will follow up w/ outpt nephro Polycythemia, secondary Follows with [facility] Heme/Onc according to [facility] records. CBC w/diff testing [id number], phlebotomy if Hct>45. Consider heme/onc consult if Hct level increases >45 Total Time Total Time Spent Total Time Spent (In Minutes): 60 Discharge Plan Discharge Items Patient Disposition: Home - Self-Care Reason For Visit: TROP ELEVATION, URI Discharge Diagnosis: COPD exacerbation Rhinovirus infection Elevated troponin, chest pain Activity: Per Instructions section Non-emergency contact: Primary Care Provider, Specialist, Squeezer Operator, Cable Braider and Scientific Informatics Project Leader Call non-emergency contact if: you have any medication questions and your symptoms worsen Follow-up/Referrals: Oswaldo Sampson MD [Primary Care Provider] - (Date & Time 03/29/2024 10:00 AM Provider Oswaldo Sampson MD [facility] PCP office - Please make a referral to Pulmonology for outpatient follow-up ) Diet: Carb Consistent or DM2 and Heart Healthy Addtl Attending Provider Instructions: Follow up with your primary care doctor, 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 Follow up with your other health care providers as well - nephrology, pain clinic, etc. Take prednisone 40 mg (2 tabs) tomorrow, then take 30 mg (1.5 tab) for 2 days, then take 20 mg (1 tab) for 2 days. Recommend taking guaifenesin (mucinex) for next several days. Continue using flutter valve. Strongly recommend smoking cessation. Continue taking losartan 25 mg daily and torsemide 40 mg - as discussed with your automated weaver. Recommend using compression stockings when you are not laying in bed. Recommend to weigh yourself daily, and record your weight. Discuss any discrepancy in your weight with your health care providers. Recommend to monitor your blood pressure and discuss your numbers with your health care providers, as you may need further adjustment in your medications. Pending Studies at Discharge: No Stand-Alone Forms: My [facility], Smoking Cessation Medications and DC Order Prescriptions: New guaifenesin [Mucinex] 600 mg Tablet Extended Release 12hr 1,200 mg PO Q12 Qty: 20 0RF prednisone 20 mg tablet 20 mg PO DAILY Qty: 7 0RF Rx Instructions: Take 2 tabs tomorrow, then take 1.5 tab for 2 days, then take 1 tab for 2 days Continued clopidogrel [Plavix] 75 mg tablet 75 mg PO QAM (DME) blood sugar diagnostic Strip See Rx Instructions .ROUTE .MEDSUPPLY Qty: 900 3RF Rx Instructions: test 10 times QD. OneTouch Ultra (DME) blood-glucose meter [place]Touch [place]2 Meter[place] [facility] [place] .Route Qty: 1 0RF Rx Instructions: As directed to monitor blood glucose (DME) blood-glucose meter [Accu-Chek Guide Glucose Meter[place] [facility] [place] Instructions .Route Qty: 1 0RF Rx Instructions: As directed (DME) OneTouch Ultra Test Strip See Rx Instructions .Route Qty: 1500 3RF Rx Instructions: test 15 times daily (DME) Dexcom G6 Sensor Device See Rx Instructions .Route Qty: 3 0RF Rx Instructions: Change sensor every 10 days (DME) Accu-Chek Guide test strips Strip See Rx Instructions .Route Qty: 400 3RF Rx Instructions: As directed to test glucose 4 times a day insulin aspart U-100 [Novolog FlexPen U-100 Insulin] 100 unit/mL (3 mL) insulin pen See Rx Instructions SQ WM 90 Days Qty: 120 3RF Rx Instructions: inject subcutaneously with meals; per sliding scale; TDD 130 units glucagon HCl [Glucagon (HCl) Emergency Kit] 1 mg recon soln 1 mg subcut Q20M PRN (Reason: hypoglycemia) Qty: 1 1RF Rx Instructions: until target blood sugar attained (DME) blood-glucose meter [OneTouch Verio Flex meter] Misc See Rx Instructions .ROUTE .MEDSUPPLY Qty: 8 3RF Rx Instructions: Test blood sugars 8 times a day testosterone 20.25 mg/1.25 gram (1.62 %) gel in metered-dose pump 2 pump topical HS Qty: 225 0RF Rx Instructions: apply 1 pump amount over max area of EACH upper arm and shoulder (DME) OneTouch Verio test strips Strip See Rx Instructions .Route Qty: 300 2RF Rx Instructions: As directed eight per day to monitor blood glucose levels (DME) Oxygen Home Liters Per Minute See Rx Instructions .ROUTE .MEDSUPPLY Qty: 1 Rx Instructions: 4 LPM at night with CPAP. pt also wears O2 at home prn throughout the day. morphine 30 mg tablet extended release 30 mg PO Q8H PRN (Reason: breakthrough pain 6-10) Rx Instructions: pt states he normally takes x2 30mg tabs overnight to equal 60mg. Pt trying to sleep without waking up overnight. Originally written as: 30mg by mouth every 8 hours as needed for BREAKTHROUGH PAIN 6-10 Linzess 145 mcg capsule 145 mcg PO DAILY PRN (Reason: Constipation) morphine 100 mg tablet extended release 100 mg PO TID Rx Instructions: 0800AM/1400PM/2000PM losartan 25 mg tablet 25 mg PO DAILY Qty: 90 3RF (DME) Dexcom G6 Escrow Secretary Misc See Rx Instructions .Route Rx Instructions: As directed (DME) Dexcom G6 Transmitter Device See Rx Instructions .Route Rx Instructions: As directed aspirin 81 mg Tablet,Delayed Release (Dr/Ec) 81 mg PO HS albuterol sulfate 90 mcg/actuation Hfa Aerosol Inhaler 2 puff INHALATION Q6H PRN (Reason: Wheezing) Zyrtec 10 mg capsule 5 mg PO DAILY PRN (Reason: Allergy Symptoms) Rx Instructions: usually does half tab at a time montelukast 10 mg tablet 10 mg PO DAILY pantoprazole 40 mg tablet,delayed release (DR/EC) 40 mg PO Q OTHER DAY cholecalciferol (vitamin D3) [Vitamin D3] 25 mcg (1,000 unit) capsule 5,000 unit PO HS morphine 15 mg tablet 15 mg PO Q6H PRN (Reason: Breakthrough Pain 1-6) Rx Instructions: Per pt he takes 3 times daily. Depends on his day how he takes it. Typically more into the night. Original Directions: 15mg by mouth every 6 hours as needed for breakthrough pain 1-6 hydroxyzine pamoate [Vistaril] 25 mg capsule 25 mg PO Q8H PRN (Reason: anxiety) 5 Days Qty: 15 1RF rosuvastatin [Crestor] 5 mg tablet 5 mg PO QAM lidocaine 5 % Adhesive Patch,Medicated 2 patch TOPICAL HS Rx Instructions: leave on most painful area for up to 12 hrs torsemide 20 mg Tablet 40 mg PO QAM ipratropium-albuterol 0.5 mg-3 mg(2.5 mg base)/3 mL Solution For Nebulization 3 ml INHALATION Q6H PRN (Reason: sob or wheezing) metoprolol succinate [Toprol XL] 25 mg Tablet Extended Release 24 Hr 25 mg PO BID mupirocin 2 % ointment 1 applic topical DAILY PRN (Reason: flare up) Rx Instructions: Apply to area of the right shoulder once daily with dressing changes as directed. clindamycin phosphate 1 % lotion 1 applic topical DAILY PRN (Reason: flare up) Rx Instructions: Apply to areas of the chest and back once daily after washing as directed. insulin glargine U-300 conc [Toujeo SoloStar U-300 Insulin] 300 unit/mL (1.5 mL) insulin pen 158 unit SUBCUT QAM nicotine 21 mg/24 hr Patch 24 Hour 1 patch TRANSDERMAL DAILY Discharge Orders: Discharge Order (Routine); Ordered 03/24/24 Ordered By: Donnell Marcos Admission Data Admit Date/Time: 03/19/24 13:49 Attending Provider: Donnell Marcos Admit Provider: Shane De Leon Primary Care Provider: Oswaldo Sampson Other Providers: [facility]; Chau Simpson; Ismael Roblero Other Interventions: Discharge Summary Assessment (RN) Last Done: 03/24/24 11:10
== END 2024-03-24 12:45 | disposition home or self-care (01) | DRG 191 ==
LOC: 1E 09:32 → ED 09:32 → SUATTDRO 13:49 → 1E 13:49 → 2S 20:15
DX: Z91.040 Latex allergy status; B97.19 Other enterovirus as the cause of diseases classified elsewhere; F17.210 Nicotine dependence, cigarettes, uncomplicated; E66.9 Obesity, unspecified; J43.9 Emphysema, unspecified; I13.0 Hypertensive heart and chronic kidney disease with heart failure and stage 1 through stage 4 chronic kidney disease, or unspecified chronic kidney disease; Z79.02 Long term (current) use of antithrombotics/antiplatelets; I50.32 Chronic diastolic (congestive) heart failure; J45.40 Moderate persistent asthma, uncomplicated; D75.1 Secondary polycythemia; Z68.41 Body mass index [BMI] 40.0-44.9, adult; I45.2 Bifascicular block; N18.30 Chronic kidney disease, stage 3 unspecified; G47.33 Obstructive sleep apnea (adult) (pediatric); Z95.1 Presence of aortocoronary bypass graft; E87.5 Hyperkalemia; Z88.1 Allergy status to other antibiotic agents; Z79.82 Long term (current) use of aspirin; I16.0 Hypertensive urgency; K21.9 Gastro-esophageal reflux disease without esophagitis; Z79.899 Other long term (current) drug therapy; J06.9 Acute upper respiratory infection, unspecified; Z88.8 Allergy status to other drugs, medicaments and biological substances; F11.20 Opioid dependence, uncomplicated; G89.4 Chronic pain syndrome; I24.89 Other forms of acute ischemic heart disease; Z95.5 Presence of coronary angioplasty implant and graft; E78.5 Hyperlipidemia, unspecified; N17.9 Acute kidney failure, unspecified; I25.10 Atherosclerotic heart disease of native coronary artery without angina pectoris; Z79.4 Long term (current) use of insulin; Z99.81 Dependence on supplemental oxygen; J96.11 Chronic respiratory failure with hypoxia; J44.1 Chronic obstructive pulmonary disease with (acute) exacerbation; E11.22 Type 2 diabetes mellitus with diabetic chronic kidney disease